=== PATIENT | female | born 1940 | race Caucasian/White ===

== ENCOUNTER 2017-07-11 18:23 | Inpatient (IN) | payer MEDICARE, OTHER ==
[2017-07-11] VITALS (20 sets, daily range): BP systolic 70–108; BP diastolic 35–53; PULSE 40–57; RESP 16–20; TEMP 91–92.1; O2SAT 85–100
[~2017-07-11] VITALS: Ht 160 cm; Wt 157.6 kg
[2017-07-11] MEDS ORDERED: ETOMIDATE 20 MG/10 ML VIAL ONE (18:32)
[2017-07-11] MEDS ORDERED: VECURONIUM BROMIDE 10 MG VIAL ONE (18:32)
[2017-07-11] MEDS ORDERED: AZITHROMYCIN INJ 500 MG in SODIUM CHLOR 0.9% 250 ML INJ 250 ML IV STA (18:44)
[2017-07-11] MEDS ORDERED: PIPERACIL-TAZO 4.5 GM PREMIX 100 ML IV STA (18:44)
[2017-07-11] MEDS ORDERED: VECURONIUM BROMIDE 10 MG VIAL IV PUSH ONE (18:45)
[2017-07-11] MEDS ORDERED: SODIUM CHLOR 0.9% 1000 ML INJ 1,000 ML IV ONE ×5 (18:45→19:15)
[2017-07-11] MEDS ORDERED: ETOMIDATE 20 MG/10 ML VIAL IVP ONE (18:45)
[2017-07-11] MEDS ORDERED: SODIUM CHLORIDE 0.9% FLUSH 10 ML FLUSH IVF PRN (18:45)
--- NOTE | 2017-07-11 19:04 | RADRPT ---
EXAM DATE/TIME: 07/11/2017 18:48 [facility] COMPARISON: No previous studies available for comparison. INDICATIONS : Post intubation. Respiratory distress. MEDICAL HISTORY : Unobtainable. SURGICAL HISTORY : Unobtainable. ENCOUNTER: Initial ACUITY: 1 day PAIN SCORE: Non-responsive. LOCATION: Bilateral chest FINDINGS: The endotracheal tube appears to be located approximately 1 cm above the melo. This could be pulled back 2 cm for more optimal positioning. The nasogastric tube is noted below the diaphragm. Bilateral perihilar and bibasilar infiltrates are noted. Degenerative changes and scoliosis of the thoracolumb ar spine are noted. Hardware is noted within the thoracic spine. CONCLUSION: 1. Endotracheal tube appears to be located approximately 1 cm above the melo. This could be pulled back 2 cm for more optimal positioning. 2. Perihilar and bibasilar infiltrates. Jaden Clark MD on July 11, 2017 at 19:00 Board Certified Radiologist. This report was verified electronically.
--- NOTE | 2017-07-11 19:09 | PD ---
HPI Chief Complaint: Respiratory Distress Time Seen by Provider: 18:27 Travel History International Travel<30 days: No Contact w/Intl Traveler<30days: No Traveled to known affect area: No History of Present Illness HPI 77-year-old female patient sent in from detention, apparently has been having increased lethargy for the last 2 days, hypoglycemia early in the day with sugars of 44, given glucagon, chest x-ray showing a pneumonia according to facility staff, EMS noted the patient was fairly disoriented, GCS 6, and started bag valve masking her because of respiratory distress and hypoxia with sats in the 87% range despite oxygenation. Patient was brought in bag-valve- mask in progress. She is fairly lethargic. She is intubated by me in the ER for airway protection. Modifying Factors: None Associated Signs & Symptoms: Pneumonia, sepsis, hypoxia, hypoglycemia, lethargy Risk Factors: Elderly detention patient PFSH Past Medical History ?: Not Social History Tobacco Use: No Allergies-Medications (Allergen,Severity, Reaction): Coded Allergies: FRANCK Inhibitors (Verified Allergy, Unknown, 07/11/17) Zpqnjhf-Tsc-Yic Reductase Inhibitor (Verified Allergy, Unknown, 07/11/17) Review of Systems ROS Limitations: Altered Mental Status Physical Exam Narrative GENERAL: Well-developed obese white female patient currently in moderate respiratory distress, obtunded, decreased gag reflex. SKIN: Focused skin assessment warm/dry. HEAD: Atraumatic. Normocephalic. EYES: Pupils equal and round. No scleral icterus. No injection or drainage. ENT: No nasal bleeding or discharge. Mucous membranes pale. NECK: Trachea midline. No JVD. CARDIOVASCULAR: Regular rate and rhythm. No murmur appreciated. RESPIRATORY: Moderate accessory muscle use. Decreased throughout with occasional wheezes. Breath sounds equal bilaterally. GASTROINTESTINAL: Abdomen obese, soft, non-tender, nondistended. Hepatic and splenic margins not palpable. MUSCULOSKELETAL: No obvious deformities. No clubbing. No cyanosis. No edema. NEUROLOGICAL: Lethargic, not following commands. PSYCHIATRIC: Lethargic. Data Data Last Documented VS Vital Signs Date Time Temp Pulse Resp B/P (MAP) Pulse Ox O2 Delivery O2 Flow Rate FiO2 07/11/17 18:59 16 98 Ventilator 07/11/17 18:57 73/38 (50) 07/11/17 18:51 100 07/11/17 18:28 57 Orders Orders Sepsis Workup Initiated (07/11/17 ) Electrocardiogram (07/11/17 18:27) Complete Blood Count With Diff (07/11/17 18:27) Comprehensive Metabolic Panel (07/11/17 18:27) Prothrombin Time / Inr (Pt) (07/11/17 18:27) Act Partial Throm Time (Ptt) (07/11/17 18:27) Lactic Acid Sepsis Protocol (07/11/17 18:27) Magnesium (Mg) (07/11/17 18:27) Lipase (07/11/17 18:27) Ckmb (Isoenzyme) Profile (07/11/17 18:) Troponin I (07/11/17 18:) Urinalysis - C+S If Indicated (07/11/17 18:27) Blood Culture (07/11/17 18:27) Chest, Single Ap (07/11/17 18:27) Blood Glucose (07/11/17 18:27) Ecg Monitoring (07/11/17 18:) Iv Access Insert/Monitor (07/11/17 18:27) Oximetry (07/11/17 18:27) Oxygen Administration (07/11/17 18:27) Ct Brain W/O Iv Contrast(Rout) (07/11/17 18:27) B-Type Natriuretic Peptide (07/11/17 18:27) Etomidate Inj (Amidate Inj) (07/11/17 18:32) Vecuronium 10 Mg Inj (Norcuron 10 Mg Inj (07/11/17 18:32) Sodium Chlor 0.9% 1000 Ml Inj (Ns 1000 M (07/11/17 18:45) Piperacil-Tazo 4.5 Gm Premix (Zosyn 4.5 (07/11/17 18:44) Azithromycin Inj (Zithromax Inj) (07/11/17 18:44) Etomidate Inj (Amidate Inj) (07/11/17 18:45) Vecuronium 10 Mg Inj (Norcuron 10 Mg Inj (07/11/17 18:45) Sodium Chloride 0.9% Flush (Ns Flush) (07/11/17 18:45) Sodium Chlor 0.9% 1000 Ml Inj (Ns 1000 M (07/11/17 19:00) Admit Order (Ed Use Only) (07/11/17 18:58) Labs Laboratory Tests Test 07/11/17 18:45 White Blood Count 15.9 TH/MM3 Red Blood Count 3.10 MIL/MM3 Hemoglobin 9.6 GM/DL Hematocrit 29.4 % Mean Corpuscular Volume 94.9 FL Mean Corpuscular Hemoglobin 30.9 PG Mean Corpuscular Hemoglobin Concent 32.6 % Red Cell Distribution Width 20.6 % Platelet Count 172 TH/MM3 Mean Platelet Volume 7.9 FL Neutrophils (%) (Auto) 93.0 % Lymphocytes (%) (Auto) 3.0 % Monocytes (%) (Auto) 3.7 % Eosinophils (%) (Auto) 0.2 % Basophils (%) (Auto) 0.1 % Neutrophils # (Auto) 14.8 TH/MM3 Lymphocytes # (Auto) 0.5 TH/MM3 Monocytes # (Auto) 0.6 TH/MM3 Eosinophils # (Auto) 0.0 TH/MM3 Basophils # (Auto) 0.0 TH/MM3 CBC Comment AUTO DIFF Prothrombin Time 9.8 SEC Prothromb Time International Ratio 1.0 RATIO Activated Partial Thromboplast Time 30.3 SEC Blood Urea Nitrogen 85 MG/DL Creatinine 1.80 MG/DL Random Glucose 92 MG/DL Albumin 2.7 GM/DL Calcium Level 8.4 MG/DL Magnesium Level 2.6 MG/DL Sodium Level 128 MEQ/L Potassium Level 6.4 MEQ/L Chloride Level 93 MEQ/L Carbon Dioxide Level 29.7 MEQ/L Anion Gap 5 MEQ/L Estimat Glomerular Filtration Rate 27 ML/MIN Lipase 175 U/L MDM Medical Decision Making Medical Screen Exam Complete: Yes Emergency Medical Condition: Yes Medical Record Reviewed: Yes Interpretation(s) Laboratory Tests Test 07/11/17 18:45 White Blood Count 15.9 TH/MM3 (4.0-11.0) Red Blood Count 3.10 MIL/MM3 (4.00-5.30) Hemoglobin 9.6 GM/DL (11.6-15.3) Hematocrit 29.4 % (35.0-46.0) Red Cell Distribution Width 20.6 % (11.6-17.2) Neutrophils (%) (Auto) 93.0 % (16.0-70.0) Lymphocytes (%) (Auto) 3.0 % (9.0-44.0) Neutrophils # (Auto) 14.8 TH/MM3 (1.8-7.7) Lymphocytes # (Auto) 0.5 TH/MM3 (1.0-4.8) Activated Partial Thromboplast Time 30.3 SEC (24.3-30.1) Blood Urea Nitrogen 85 MG/DL (7-18) Creatinine 1.80 MG/DL (0.50-1.00) Albumin 2.7 GM/DL (3.4-5.0) Calcium Level 8.4 MG/DL (8.5-10.1) Magnesium Level 2.6 MG/DL (1.5-2.5) Alkaline Phosphatase 164 U/L (45-117) Aspartate Amino Transf (AST/SGOT) 38 U/L (15-37) Sodium Level 128 MEQ/L (136-145) Potassium Level 6.4 MEQ/L (3.5-5.1) Chloride Level 93 MEQ/L (98-107) Estimat Glomerular Filtration Rate 27 ML/MIN (>89) Troponin I LESS THAN 0.02 NG/ML Last 24 hours Impressions Chest X-Ray 07/11/17 9737 Signed Impressions: Service Date/Time: Tuesday, July 11, 2017 18:48 - CONCLUSION: 1. Endotracheal tube appears to be located approximately 1 cm above the melo. This could be pulled back 2 cm for more optimal positioning. 2. Perihilar and bibasilar infiltrates. aJden Clark MD Differential Diagnosis Sepsis versus pneumonia versus CHF exacerbation versus metabolic issues Narrative Course Patient is intubated by me for airway protection. She tolerated procedure well. IV fluids initiated in the ER for hypotension. IV antibiotics initiated for concern of pneumonia. Lab work ordered. Case was then discussed with Dr. De Paz for admission to ICU for further treatment. Aggregate critical care time was 20 minutes. Time to perform other separately billable procedures was not included in the critical care time. My time did not include minutes spent treating any other patients simultaneously or on activities that did not directly contribute to the patient's treatment. The services I provided to this patient were to treat and/or prevent clinically significant deterioration that could result in: Worsening respiratory distress, respiratory failure, septic shock, cardiac arrest, I provided critical care services requiring my management, as noted below: Chart data review, documentation time, medication orders and management, vital sign assessments/reviewing monitor data, ordering and reviewing lab tests, ordering and interpreting/reviewing x-rays and diagnostic studies, care of the patient and discussion of the patient with the admitting physicians. Procedures Procedure Narrative The following procedure was performed for airway protection: INTUBATION: The patient was put in optimal position for the procedure. Rapid sequence intubation was initiated by me using 20 milligrams of etomidate IV and 10 milligrams of vecuronium IV. The patient was intubated with a 8.0 cuffed endotracheal tube. Tube placement was confirmed by visualization of the tube and balloon passing through the cords, capnometry and subsequent chest x-ray. Breath sounds were equal and well aerated bilaterally postintubation. No breath sounds over stomach. Patient tolerated procedure well. Diagnosis Primary Impression: Respiratory distress Additional Impressions: Pneumonia Endotracheally intubated Admitting Information Admitting Physician Requests: Admit Isaac Laguerre MD Jul 11, 2017 19:09
[2017-07-11 19:14] LABS: AUTOMATED NEUTROPHIL # 14.8 TH/MM3 (1.8-7.7); BASOPHIL % 0.1 % (0.0-2.0); EOSINOPHIL % 0.2 % (0.0-4.0); HEMATOCRIT 29.4 % (35.0-46.0); HEMOGLOBIN 9.6 GM/DL (11.6-15.3); LYMPHOCYTE # 0.5 TH/MM3 (1.0-4.8); MEAN CELL VOLUME 94.9 FL (80.0-100.0); MEAN CORPUSCULAR HEMOGLOBIN 30.9 PG (27.0-34.0); MEAN CORPUSCULAR HGB CONC 32.6 % (32.0-36.0); MEAN PLATELET VOLUME 7.9 FL (7.0-11.0); MONO % 3.7 % (0.0-8.0); MONOCYTE # 0.6 TH/MM3 (0-0.9); PLATELET COUNT 172 TH/MM3 (150-450); RED CELL DISTRIBUTION WIDTH 20.6 % (11.6-17.2); WHITE BLOOD COUNT 15.9 TH/MM3 (4.0-11.0)
[2017-07-11] MEDS ORDERED: ONDANSETRON HCL 4 MG/2 ML VIAL IV PUSH PRN (19:15)
[2017-07-11] MEDS ORDERED: LACTULOSE SYRUP 20 GM/30 ML CUP PO PRN (19:15)
[2017-07-11] MEDS ORDERED: MISCELLANEOUS NURSING INFORMATION XX SCH (19:15)
[2017-07-11] MEDS ORDERED: SENNOSIDES 8.6 MG TAB PO PRN (19:15)
[2017-07-11] MEDS ORDERED: VANCOMYCIN INJ 1,000 MG in SODIUM CHLOR 0.9% 250 ML INJ 250 ML IV ONE (19:15)
[2017-07-11] MEDS ORDERED: MAGNESIUM HYDROXIDE SUSP 30 ML CUP PO PRN (19:15)
[2017-07-11] MEDS ORDERED: Vancomycin Consult Pharmacy 1 EA OTHER SCH (19:15)
[2017-07-11] MEDS ORDERED: BISACODYL 10 MG SUPP RECTAL PRN (19:15)
[2017-07-11] MEDS ORDERED: CHLORHEXIDINE GLUCONATE 2 % 1 PACK (2 CLOTHS) TOP PRN (19:15)
[2017-07-11] MEDS ORDERED: RESP: ALBUTEROL 2.5 MG/IPRATROPIUM 0.5 MG NEB (PRN) INH (19:15)
[2017-07-11] MEDS ORDERED: LORazepam 2 MG/ML VIAL IV PUSH PRN (19:15)
[2017-07-11] MEDS ORDERED: SODIUM CHLOR 0.9% 1000 ML INJ 900 ML IV ONE (19:15)
[2017-07-11] MEDS ORDERED: ACETAMINOPHEN 325 MG TAB PO PRN (19:15)
[2017-07-11 19:22] LABS: PROTHROMBIN TIME - PATIENT 9.8 SEC (9.8-11.6)
--- NOTE | 2017-07-11 19:26 | HHI.HP ---
HPI Service Critical Care Medicine Primary Care Physician [facility] Clinical Diagnostics Admission Diagnosis pneumonia/severe sepsis/respiratory failure/intubated Diagnosis: Travel History International Travel<30 Days: No Contact w/Intl Traveler <30 Da: No Traveled to Known Affected Are: No History of Present Illness 77-year-old morbidly obese female patient sent in from assisted, due to increased lethargy for the last 2 days, hypoglycemia early in the day with sugars of 44, given glucagon, chest x-ray showing a pneumonia according to facility staff, EMS noted the patient was fairly disoriented, GCS 6, and started bag valve masking her because of respiratory distress and hypoxia with sats in the 87% range despite oxygenation. Patient was brought in bag-valve- mask in progress and was immediately intubated in the emergency department by ED attending. Review of Systems ROS Unobtainable patient is sedated and intubated Past Family Social History Allergies: Coded Allergies: FRANCK Inhibitors (Verified Allergy, Unknown, 07/11/17) [id number]-Rpr-Dkw Reductase Inhibitor (Verified Allergy, Unknown, 07/11/17) Past Medical History Per review of medications from the assisted patient has diabetes mellitus, hypertension, arrhythmia's, hypothyroidism, seizure disorder Past Surgical History Unable to obtain patient is sedated and intubated Reported Medications Reported Meds & Active Scripts Active Reported Zinc Sulfate 220 Mg (50 Mg Zinc) Cap 220 Mg PO DAILY Ascorbic Acid 500 Mg Tab 500 Mg PO BID Tramadol (Tramadol HCl) 50 Mg Tab 50 Mg PO Q6H PRN Spironolactone 25 Mg Tab 12.5 Mg PO HS Santyl Topical (Collagenase) 250 Unit/Gm Oint 1 Applic TOPICAL DAILY Probiotic (Lactobacillus Acidophilus) 10 Billion Cell Cap 1 Cap PO TIDAC Prednisone 10 Mg Tab 10 Mg PO DAILY Multiple Vitamin 1 Tab 1 Tab PO DAILY Modafinil 200 Mg Tab 200 Mg PO DAILY Metoprolol Tartrate 25 Mg Tab 25 Mg PO BID Levothyroxine (Levothyroxine Sodium) 25 Mcg Tab 25 Mcg PO DAILY Levetiracetam 500 Mg Tab 500 Mg PO BID Combivent Respimat Inh (Ipratropium-Albuterol Inh) 20-100 Longterm/Act Aero 1 Puff INH QID Levemir Inj (Insulin Detemir) 1,000 unit/ 10 ML Vial 25 Units SQ BID Do not mix with any other Insulin. Humalog Inj (Insulin Human Lispro) 1,000 Unit/10 Ml Vial 3-12 Units SQ ACHS Max dose at bedtime:( )units; sugars < 70,(0)units; sugars 150-199,(2)units; sugars 200-249,(4)units; sugars 250-299,(7)units; sugars 300-349,(10)units; sugars more than 349,(12)units. Guaifenesin DM Liq (Guaifenesin-Dextromethorphan Liq) 10-100 Mg/5 Ml Liq 7.5 Ml PO Q6HR PRN Glucagon Emergency Inj Kit (Glucagon (Rdna) Inj Kit) 1 Mg Kit 1 Mg IM ONCE PRN Gabapentin 300 Mg Cap 300 Mg PO TID Furosemide 40 Mg Tab 40 Mg PO DAILY Folic Acid 0.4 Mg Tab 1 Mg PO DAILY Ferrous Sulfate 325 Mg (65 Mg Iron) Tablet 325 Mg PO DAILY Famotidine 20 Mg Tab 20 Mg PO BID Dulcolax Supp (Bisacodyl) 10 Mg Supp 10 Mg RECTAL DAILY PRN Docusate Sodium 100 Mg Cap 100 Mg PO BID PRN Citroma Liq (Magnesium Citrate) 300 Ml Liq 296 Ml PO DIRECTED Buspirone (Buspirone HCl) 10 Mg Tab 10 Mg PO BID Amitriptyline (Amitriptyline HCl) 10 Mg Tab 10 Mg PO HS Amiodarone (Amiodarone HCl) 200 Mg Tab 200 Mg PO BID Alprazolam 0.5 Mg Tab 0.5 Mg PO Q6H PRN Tylenol (Acetaminophen) 325 Mg Tab 650 Mg PO Q4H PRN Tylenol (Acetaminophen) 325 Mg Tab 650 Mg PO Q4H PRN Active Ordered Medications Current Medications Medications (Trade) Dose Ordered Sig/Kerri Route PRN Reason Start Time Stop Time Status Last Admin Dose Admin Sodium Chloride 1,000 ml @ 184 mls/hr Q5H27M IV 07/11/17 19:15 Sodium Chloride (NS Flush) 2 ml UNSCH PRN IV FLUSH FLUSH AFTER USING IV ACCESS 07/11/17 19:15 Sodium Chloride (NS Flush) 2 ml BID IV FLUSH 07/11/17 21:00 Acetaminophen (Tylenol) 650 mg Q6H PRN PO PAIN 1-10 AND/OR FEVER >101F 07/11/17 19:15 Famotidine (Pepcid Inj) 20 mg Q12HR IV PUSH 07/11/17 21:00 Lorazepam (Ativan Inj) 1 mg Q1H PRN IV PUSH Agitation/Sedation 07/11/17 19:15 Artificial Tears (Tears Naturale Opth Soln) 1 drop TID EACH EYE 07/12/17 09:00 Ondansetron HCl (Zofran Inj) 4 mg Q6H PRN IV PUSH NAUSEA OR VOMITING 07/11/17 19:15 Albuterol/ Ipratropium (Duoneb Neb) 1 ampule Q6HR NEB INH 07/11/17 22:00 07/11/17 19:53 Albuterol/ Ipratropium (Duoneb Neb) 1 ampule Q2HR NEB PRN INH WHEEZING 07/11/17 19:15 Heparin Sodium (Porcine) (Heparin Inj) 5,000 units Q8H SQ 07/11/17 21:00 Miscellaneous Information 1 Q361D XX 07/11/17 19:15 Chlorhexidine Gluconate (Chlorhexidine 2% Cloth) 3 pack Taper DAILY@04 TOP 07/12/17 04:00 07/08/18 03:59 Chlorhexidine Gluconate (Chlorhexidine 2% Cloth) 3 pack UNSCH PRN TOP HYGIENIC CARE 07/11/17 19:15 Senna/Docusate Sodium (Mare-Colace) 1 tab BID PO 07/11/17 21:00 Magnesium Hydroxide (Milk Of Magnesia Liq) 30 ml Q12H PRN PO Mild constipation 07/11/17 19:15 Sennosides (Senokot) 17.2 mg Q12H PRN PO Moderate constipation 07/11/17 19:15 Bisacodyl (Dulcolax Supp) 10 mg DAILY PRN RECTAL SEVERE CONSITIPATION 07/11/17 19:15 Lactulose (Lactulose Liq) 30 ml DAILY PRN PO SEVERE CONSITIPATION 07/11/17 19:15 Hydrocortisone Sodium Succinate (SoluCORTEF INJ) 50 mg Q6H IV PUSH 07/11/17 21:00 Azithromycin 500 mg/Sodium Chloride 250 ml @ 250 mls/hr Q24H IV 07/12/17 20:00 Pharmacy Profile Note 0 ml @ 0 mls/hr UNSCH OTHER 07/11/17 19:15 Piperacillin Sod/ Tazobactam Sod 100 ml @ 200 mls/hr Q6H IV 07/12/17 02:00 Sodium Chloride 1,000 ml @ 1,000 mls/hr Q1H ONCE IV 07/11/17 19:15 07/11/17 20:14 Sodium Chloride 1,000 ml @ 1,000 mls/hr Q1H ONCE IV 07/11/17 19:15 07/11/17 20:14 Sodium Chloride 1,000 ml @ 1,000 mls/hr Q1H ONCE IV 07/11/17 19:15 07/11/17 20:14 Sodium Chloride 900 ml @ 1,000 mls/hr Q54M ONCE IV 07/11/17 19:15 07/11/17 20:08 Fentanyl Citrate 250 ml @ 5 mls/hr TITRATE PRN IV SEDATION 07/11/17 19:30 Midazolam HCl 100 ml @ 2 mls/hr TITRATE PRN IV SEDATION 07/11/17 19:30 Vancomycin HCl 2500 mg/Sodium Chloride 525 ml @ 250 mls/hr ONCE ONCE IV 07/11/17 21:00 07/11/17 23:05 Family History Unable to obtain Social History Unable to obtain Physical Exam Vital Signs Vital Signs Date Time Temp Pulse Resp B/P (MAP) Pulse Ox O2 Delivery O2 Flow Rate FiO2 07/11/17 19:24 91.6 40 16 75/37 (50) 92 Ventilator 100 07/11/17 19:05 75/38 (50) 07/11/17 18:59 16 98 Ventilator 07/11/17 18:57 73/38 (50) 07/11/17 18:55 70/35 (47) 07/11/17 18:51 100 Non-Rebreather 100 07/11/17 18:46 16 98 Ventilator 07/11/17 18:46 97 Ventilator 07/11/17 18:45 97 100 07/11/17 18:42 86/42 (57) 07/11/17 18:40 85 21 07/11/17 18:35 97/46 (63) 07/11/17 18:28 57 20 89/51 (64) 98 Physical Exam GENERAL: Morbidly obese elderly female sedated and intubated. SKIN: Warm and dry. HEAD: Normocephalic. EYES: No scleral icterus. No injection or drainage. NECK: Supple, trachea midline. No JVD or lymphadenopathy. CARDIOVASCULAR: Regular rate and rhythm without murmurs, gallops, or rubs. RESPIRATORY: Breath sounds equal bilaterally. No accessory muscle use. GASTROINTESTINAL: Abdomen soft, non-tender, nondistended. MUSCULOSKELETAL: No cyanosis, or edema. BACK: Nontender without obvious deformity. NEURO EXAM: Mental Status: The patient is sedated and intubated. Cranial Nerves: Pupils are round, reactive to light. Laboratory Laboratory Tests Test 07/11/17 18:45 White Blood Count 15.9 Red Blood Count 3.10 Hemoglobin 9.6 Hematocrit 29.4 Mean Corpuscular Volume 94.9 Mean Corpuscular Hemoglobin 30.9 Mean Corpuscular Hemoglobin Concent 32.6 Red Cell Distribution Width 20.6 Platelet Count 172 Mean Platelet Volume 7.9 Neutrophils (%) (Auto) 93.0 Lymphocytes (%) (Auto) 3.0 Monocytes (%) (Auto) 3.7 Eosinophils (%) (Auto) 0.2 Basophils (%) (Auto) 0.1 Neutrophils # (Auto) 14.8 Lymphocytes # (Auto) 0.5 Monocytes # (Auto) 0.6 Eosinophils # (Auto) 0.0 Basophils # (Auto) 0.0 CBC Comment AUTO DIFF Prothrombin Time 9.8 Prothromb Time International Ratio 1.0 Activated Partial Thromboplast Time 30.3 Result Diagram: 07/11/17 1845 Imaging Last 24 hours Impressions Chest X-Ray 07/11/177 Signed Impressions: Service Date/Time: Tuesday, July 11, 2017 18:48 - CONCLUSION: 1. Endotracheal tube appears to be located approximately 1 cm above the melo. This could be pulled back 2 cm for more optimal positioning. 2. Perihilar and bibasilar infiltrates. Jaden Clark MD Caprini VTE Risk Assessment Caprini VTE Risk Assessment: Mod/High Risk (score >= 2) Caprini Risk Assessment Model Point Value = 1 Point Value = 2 Point Value = 3 Point Value = 5 Age 41-60 Minor surgery BMI > 25 kg/m2 Swollen legs Varicose veins or History of unexplained or recurrent spontaneous Oral contraceptives or hormone replacement Sepsis (< 1 month) Serious lung disease, including pneumonia (< 1 month) Abnormal pulmonary function Acute myocardial infarction Congestive heart failure (< 1 month) History of inflammatory bowel disease Medical patient at bed rest Age 61-74 Arthroscopic surgery Major open surgery (> 45 min) Laparoscopic surgery (> 45 min) Malignancy Confined to bed (> 72 hours) Immobilizing plaster cast Central venous access Age >= 75 History of VTE Family history of VTE Factor V Leiden Prothrombin [id number] Lupus anticoagulant Anticardiolipin antibodies Elevated serum homocysteine Heparin-induced thrombocytopenia Other congenital or acquired thrombophilia Stroke (< 1 month) Elective arthroplasty Hip, pelvis, or leg fracture Acute spinal cord injury (< 1 month) Prophylaxis Regimen Total Risk Factor Score Risk Level Prophylaxis Regimen 0-1 Low Early ambulation 2 Moderate Order ONE of the following: *Sequential Compression Device (SCD) *Heparin 5000 units SQ BID 3-4 Higher Order ONE of the following medications: *Heparin 5000 units SQ TID *Enoxaparin/Lovenox 40 mg SQ daily (WT < 150 kg, CrCl > 30 mL/min) *Enoxaparin/Lovenox 30 mg SQ daily (WT < 150 kg, CrCl > 10-29 mL/min) *Enoxaparin/Lovenox 30 mg SQ BID (WT < 150 kg, CrCl > 30 mL/min) AND/OR *Sequential Compression Device (SCD) 5 or more Highest Order ONE of the following medications: *Heparin 5000 units SQ TID (Preferred with Epidurals) *Enoxaparin/Lovenox 40 mg SQ daily (WT < 150 kg, CrCl > 30 mL/min) *Enoxaparin/Lovenox 30 mg SQ daily (WT < 150 kg, CrCl > 10-29 mL/min) *Enoxaparin/Lovenox 30 mg SQ BID (WT < 150 kg, CrCl > 30 mL/min) AND *Sequential Compression Device (SCD) Assessment and Plan Assessment and Plan Respiratory failure - Intubated for an airway protection - Questionable hospital-acquired pneumonia - Broad-spectrum antibiotics - Cultures and urine antigens - De-escalate per sensitivity and results - IV steroids - DuoNeb scheduled and when necessary Altered mental status - CT head pending - SIRS/sepsis - Broad-spectrum antibiotics and follow-up cultures Hypotension - Septic shock - Aggressive IV fluid rehydration - Levophed when necessary keep MEP above 65 - Broad-spectrum antibiotics Diabetes mellitus - Insulin sliding scale - Glucerna - Resume long-acting insulins went tube feeds at goal Hypothyroidism - Levothyroxine Arrhythmias - Continue amiodarone History of hypertension - Hold all antihypertensive meds due to hypotension Seizure disorder - Keppra Neuropathy - Gabapentin - Amitriptyline DVT GI prophylaxis - Teds SCDs - Subcutaneous heparin - IV Pepcid Critical Care: The total critical care time was 35 minutes. Time to perform other separately billable procedures was not included in the critical care time. Colton De Paz MD Jul 11, 2017 7:26 pm
[2017-07-11 19:35] LABS: ALBUMIN 2.7 GM/DL (3.4-5.0); BICARBONATE 29.7 MEQ/L (21.0-32.0); BLOOD UREA NITROGEN 85 MG/DL (7-18); CALCIUM 8.4 MG/DL (8.5-10.1); CHLORIDE 93 MEQ/L (98-107); GLOMERULAR FILTRATION RATE 27 ML/MIN (>89); GLUCOSE,RANDOM 92 MG/DL (74-106); LIPASE 175 U/L (73-393); MAGNESIUM 2.6 MG/DL (1.5-2.5); SODIUM (NA) 128 MEQ/L (136-145)
[2017-07-11 19:39] LABS: ALKALINE PHOSPHATASE 164 U/L (45-117); ALT (GPT) 52 U/L (10-53); AST (GOT) 38 U/L (15-37); TOTAL BILIRUBIN ADULT 0.3 MG/DL (0.2-1.0); TOTAL PROTEIN 7.1 GM/DL (6.4-8.2); TROPONIN I LESS THAN 0.02 NG/ML (0.02-0.05)
[2017-07-11] MEDS: RESP: ALBUTEROL 2.5 MG/IPRATROPIUM 0.5 MG NEB (SCH) INH (19:53)
[2017-07-11] MEDS ORDERED: FERR325T18 PO (20:03)
[2017-07-11] MEDS ORDERED: METO25TA3 PO (20:03)
[2017-07-11] MEDS ORDERED: MODA200T12 PO (20:03)
[2017-07-11] MEDS ORDERED: BUSP10TA PO (20:03)
[2017-07-11] MEDS ORDERED: LEVO25TA4 PO (20:03)
[2017-07-11] MEDS ORDERED: AMIO200T PO (20:03)
[2017-07-11] MEDS ORDERED: HUMALOG SQ (20:03)
[2017-07-11] MEDS ORDERED: SPIR25TA PO (20:03)
[2017-07-11] MEDS ORDERED: IPRAAER INH (20:03)
[2017-07-11] MEDS ORDERED: CITRSOL4 PO (20:03)
[2017-07-11] MEDS ORDERED: GUAISYP7 PO (20:03)
[2017-07-11] MEDS ORDERED: TYLE325T PO (20:03)
[2017-07-11] MEDS ORDERED: LEVE500T8 PO (20:03)
[2017-07-11] MEDS ORDERED: AMIT10TA6 PO (20:03)
[2017-07-11] MEDS ORDERED: ZINC220C3 PO (20:03)
[2017-07-11] MEDS ORDERED: GLUC1KIT IM (20:03)
[2017-07-11] MEDS ORDERED: GABA300C5 PO (20:03)
[2017-07-11] MEDS ORDERED: COLL30T TOPICAL (20:03)
[2017-07-11] MEDS ORDERED: ALPR0.5T3 PO (20:03)
[2017-07-11] MEDS ORDERED: MULTTAB67 PO (20:03)
[2017-07-11] MEDS ORDERED: PRED10 PO (20:03)
[2017-07-11] MEDS ORDERED: LEVEMIR SQ (20:03)
[2017-07-11] MEDS ORDERED: TRAM50TA PO (20:03)
[2017-07-11] MEDS ORDERED: FURO40TA PO (20:03)
[2017-07-11] MEDS ORDERED: FOLI400T PO (20:03)
[2017-07-11] MEDS ORDERED: FAMO20TA2 PO (20:03)
[2017-07-11] MEDS ORDERED: LACTCAP8 PO (20:03)
[2017-07-11] MEDS ORDERED: DULC10SU3 RECTAL (20:03)
[2017-07-11] MEDS ORDERED: DOCU100C15 PO (20:03)
[2017-07-11] MEDS ORDERED: ASCO500T PO (20:03)
[2017-07-11 20:21] LABS: BACTERIA, URINE MANY /hpf; BILIRUBIN, URINE NEG (NEG); BLOOD, URINE NEG (NEG); GLUCOSE,URINE NEG (NEG); HYALINE CAST, URINE 35 /lpf (RARE); KETONE, URINE NEG (NEG); MUCUS URINE FEW /lpf (OCC); NITRITE,URINE NEG (NEG); SQUAMOUS EPITHELIAL CELL URINE 3 /hpf (0-5); URINE COLOR YELLOW (YELLW/STRAW); URINE LEUKOCYTE ESTERASE MOD (NEG)
[2017-07-11] MEDS ORDERED: DEXTROSE 50% IN WATER 50 ML VIAL(D50) ONE (20:47)
[2017-07-11] MEDS: DOCUSATE SODIUM 50 MG/SENNA 8.6 MG TAB PO SCH (21:00)
[2017-07-11] MEDS: AMIODARONE 200 MG TAB PO SCH (21:00)
[2017-07-11] MEDS: ASCORBIC ACID 500 MG TAB PO SCH (21:00)
[2017-07-11] MEDS: AMITRIPTYLINE HCL 10 MG TAB PO SCH (21:00)
[2017-07-11] MEDS: levETIRAcetam 500 MG TAB PO SCH (21:00)
[2017-07-11] MEDS: busPIRone HCL 10 MG TAB PO SCH (21:00)
[2017-07-11] MEDS ORDERED: VANCOMYCIN INJ 2,500 MG in SODIUM CHLORID 0.9% 500 ML INJ 500 ML IV ONE (21:00)
[2017-07-11] MEDS: FAMOTIDINE 20 MG/2 ML VIAL IV PUSH SCH (21:18)
[2017-07-11] MEDS: HYDROCORTISONE SOD SUCCINATE 100 MG VIAL IV PUSH SCH (21:18)
[2017-07-11] MEDS: SODIUM CHLORIDE 0.9% FLUSH 10 ML FLUSH IV FLUSH SCH (21:19)
[2017-07-11] MEDS: HEPARIN SODIUM - SQ 10,000 UNITS/ML VIAL SQ SCH (21:19)
[2017-07-11] MEDS ORDERED: fentaNYL DRIP 250 ML ONE (21:20)
[2017-07-11] MEDS: fentaNYL DRIP 250 ML IV PRN (21:23)
--- NOTE | 2017-07-11 21:45 | RADRPT ---
EXAM DATE/TIME: 07/11/2017 21:23 [facility] COMPARISON: No previous studies available for comparison. INDICATIONS : Altered mental status. RADIATION DOSE: 56.35 CTDIvol (mGy) MEDICAL HISTORY : Non-responsive. SURGICAL HISTORY : Non-responsive. ENCOUNTER: Initial ACUITY: 1 day PAIN SCALE: Non-responsive LOCATION: cranial TECHNIQUE: Multiple contiguous axial images were obtained of the head. Using automated exposure control and adj ustment of the mA and/or kV according to patient size, radiation dose was kept as low as reasonably a chievable to obtain optimal diagnostic quality images. DICOM format image data is available electro nically for review and comparison. FINDINGS: CEREBRUM: The ventricles are normal for age. No evidence of midline shift, mass lesion, hemorrhage or acute in farction. No extra-axial fluid collections are seen. POSTERIOR FOSSA: The cerebellum and brainstem are intact. The 4th ventricle is midline. The cerebellopontine angle i s unremarkable. EXTRACRANIAL: The visualized portion of the orbits is intact. Small fluid level within left maxillary sinus. SKULL: The calvaria is intact. No evidence of skull fracture. CONCLUSION: No acute intracranial abnormality Jaden Clark MD on July 11, 2017 at 21:42 Board Certified Radiologist. This report was verified electronically.
[2017-07-11] MEDS ORDERED: DEXTROSE 50% IN WATER 50 ML VIAL(D50) IV PUSH PRN (22:30)
[2017-07-11] MEDS ORDERED: GLUCAGON 1 MG/ML VIAL OTHER PRN (22:30)
[2017-07-11] MEDS: CHLORHEXIDINE GLUCONATE 2 % 1 PACK (2 CLOTHS) TOP SCH (23:26)
[2017-07-11] MEDS: SODIUM CHLOR 0.9% 1000 ML INJ 1,000 ML IV SCH ×2 (23:52→23:53)
[2017-07-12] VITALS (18 sets, daily range): BP systolic 100–117; BP diastolic 46–58; PULSE 47–65; RESP 16–34; TEMP 98.6–99.9; O2SAT 98–100
[2017-07-12 01:29] LABS: AUTOMATED NEUTROPHIL # 8.8 TH/MM3 (1.8-7.7); BASOPHIL % 0.1 % (0.0-2.0); HEMOGLOBIN 9.2 GM/DL (11.6-15.3); LYMPH % 2.6 % (9.0-44.0); LYMPHOCYTE # 0.3 TH/MM3 (1.0-4.8); MEAN CORPUSCULAR HEMOGLOBIN 30.1 PG (27.0-34.0); MEAN CORPUSCULAR HGB CONC 31.7 % (32.0-36.0); MEAN PLATELET VOLUME 7.8 FL (7.0-11.0); MONO % 7.9 % (0.0-8.0); MONOCYTE # 0.8 TH/MM3 (0-0.9); NEUT % 89.4 % (16.0-70.0); PLATELET COUNT 120 TH/MM3 (150-450); RED BLOOD COUNT 3.06 MIL/MM3 (4.00-5.30); RED CELL DISTRIBUTION WIDTH 20.4 % (11.6-17.2); WHITE BLOOD COUNT 9.8 TH/MM3 (4.0-11.0)
[2017-07-12] MEDS: HYDROCORTISONE SOD SUCCINATE 100 MG VIAL IV PUSH SCH ×4 (01:33→21:04)
[2017-07-12] MEDS: PIPERACIL-TAZO 4.5 GM PREMIX 100 ML IV SCH ×4 (01:33→21:03)
[2017-07-12 01:45] LABS: ALBUMIN 2.3 GM/DL (3.4-5.0); ALT (GPT) 61 U/L (10-53); AST (GOT) 47 U/L (15-37); BICARBONATE 25.1 MEQ/L (21.0-32.0); BLOOD UREA NITROGEN 83 MG/DL (7-18); CALCIUM 7.8 MG/DL (8.5-10.1); CHLORIDE 99 MEQ/L (98-107); GLOMERULAR FILTRATION RATE 31 ML/MIN (>89); GLUCOSE,RANDOM 58 MG/DL (74-106); MAGNESIUM 2.5 MG/DL (1.5-2.5); PHOSPHORUS 5.7 MG/DL (2.5-4.9); SODIUM (NA) 132 MEQ/L (136-145)
[2017-07-12 01:50] LABS: ALKALINE PHOSPHATASE 163 U/L (45-117); TOTAL BILIRUBIN ADULT 0.5 MG/DL (0.2-1.0); TOTAL PROTEIN 5.9 GM/DL (6.4-8.2); TROPONIN I LESS THAN 0.02 NG/ML (0.02-0.05)
[2017-07-12] MEDS: RESP: ALBUTEROL 2.5 MG/IPRATROPIUM 0.5 MG NEB (SCH) INH ×4 (04:50→21:56)
[2017-07-12] MEDS: HEPARIN SODIUM - SQ 10,000 UNITS/ML VIAL SQ SCH ×3 (05:10→21:03)
[2017-07-12] MEDS: LEVOTHYROXINE SODIUM 25 MCG TAB PO SCH (05:10)
[2017-07-12] MEDS: SODIUM CHLOR 0.9% 1000 ML INJ 1,000 ML IV SCH ×3 (05:11→16:50)
--- NOTE | 2017-07-12 05:46 | RADRPT ---
EXAM DATE/TIME: 07/12/2017 04:10 [facility] COMPARISON: CHEST SINGLE AP, July 11, 2017, 18:48. INDICATIONS : Shortness of breath, possible pulmonary disease. MEDICAL HISTORY : None. SURGICAL HISTORY : None. ENCOUNTER: Subsequent ACUITY: 2 days PAIN SCORE: Non-responsive. LOCATION: Bilateral chest FINDINGS: A single AP semierect view of the chest was obtained. The endotracheal tube remains in place with the tip approximately 1-2 cm above the melo. Nasogastric tube remains in place and is seen coursing th rough the esophagus and stomach. Hazy opacity remains in the perihilar regions of both lung bases wit h blunting of the costophrenic this. The heart size is moderately enlarged. A single view of the chest demonstrates the lungs to be symmetrically aerated without evidence of mas s, infiltrate or effusion. The cardiomediastinal contours are unremarkable. Osseous structures are intact. CONCLUSION: Moderate cardiomegaly with hazy bilateral alveolar opacities and small old apparent effusions. The fi ndings remain most characteristic of congestive heart failure. Phil South MD on July 12, 2017 at 5:43 Board Certified Radiologist. This report was verified electronically.
[2017-07-12] MEDS: INSULIN ASPART SUPPLEMENTAL SCALE SQ SCH ×4 (08:00→21:00)
[2017-07-12] MEDS: fentaNYL DRIP 250 ML IV PRN ×2 (08:06→16:51)
[2017-07-12] MEDS: FOLIC ACID 1 MG TAB PO SCH (08:14)
[2017-07-12] MEDS: FAMOTIDINE 20 MG/2 ML VIAL IV PUSH SCH ×2 (08:14→21:04)
[2017-07-12] MEDS: ASCORBIC ACID 500 MG TAB PO SCH ×2 (08:14→21:04)
[2017-07-12] MEDS: DOCUSATE SODIUM 50 MG/SENNA 8.6 MG TAB PO SCH ×2 (08:14→21:04)
[2017-07-12] MEDS: AMIODARONE 200 MG TAB PO SCH ×2 (08:14→21:04)
[2017-07-12] MEDS: MULTIVITAMIN TAB PO SCH (08:14)
[2017-07-12] MEDS: ZINC SULFATE 220 MG CAP PO SCH (08:14)
[2017-07-12] MEDS: GABAPENTIN 300 MG CAP PO SCH ×2 (08:14→12:43)
[2017-07-12] MEDS: busPIRone HCL 10 MG TAB PO SCH ×2 (08:15→21:00)
[2017-07-12] MEDS: SODIUM CHLORIDE 0.9% FLUSH 10 ML FLUSH IV FLUSH SCH ×2 (08:15→21:04)
[2017-07-12] MEDS ORDERED: FERROUS SULFATE 325 MG (65 MG ELEMENTAL IRON) TAB PO SCH (09:00)
[2017-07-12] MEDS: levETIRAcetam 500 MG TAB PO SCH (09:00)
[2017-07-12] MEDS: COLLAGENASE OINT 30 GM TUBE TOPICAL SCH (10:05)
[2017-07-12] MEDS: ARTIFICIAL TEARS OPTH SOLN 15 ML BTL EACH EYE SCH ×3 (10:05→17:18)
[2017-07-12] MEDS: FERROUS SULFATE 300 MG /5ML UDC PO SCH ×2 (13:06→21:03)
[2017-07-12] MEDS: levETIRAcetam 500 MG/5 ML UDC NG SCH ×2 (13:06→21:03)
--- NOTE | 2017-07-12 13:38 | PD.WCN.NOT ---
Wound Consult Description: Consult placed for WOUND MANAGEMENT of abdomen per MARKO/Ion Communicated with: ABHINAV Veras Recommendation: Cleanse wound daily with NORMAL SALINE only. Apply Santyl to gauze and place into wound bed. Cover with dry cover. Additional Information: Patient seen on [facility] [place] for left upper abdominal wound measuring 7cm x 3cm x 0.9cm with undermining noted from 3-6 o'clock deepest was 1.6cm @5 o'clock. Wound bed is moist with ~50% adherent yellow slough, ~30% pink tissue, and ~20% red non granulating tissue. There was minimal green and beige thick exudate without odor noted to undermining area when cleansed with NS and gauze. Wound margins are epibole. Santyl was applied as ordered and covered with 4x4 gauze and tape dated today. Arcelia Pickens [facility] Jul 12, 2017 13:38
--- NOTE | 2017-07-12 16:31 | EKG ---
Date Performed: 07/11/2017 Time Performed: 19:07:01 PTAGE: 77 years EKG: SINUS BRADYCARDIA WITH FIRST DEGREE AV BLOCK RIGHT BUNDLE BRANCH BLOCK Prolonged corrected QT interval. ABNORMAL ECG NO PREVIOUS TRACING DOCTOR: Chauncey Luciano Interpretating Date/Time 07/12/2017 16:30:53
--- NOTE | 2017-07-12 18:59 | HHI.CCPN ---
Subjective Remarks/Hospital Course 07/11: 77-year-old morbidly obese female patient sent in from skilled nursing, due to increased lethargy for the last 2 days, hypoglycemia early in the day with sugars of 44, given glucagon, chest x-ray showing a pneumonia according to facility staff, EMS noted the patient was fairly disoriented, GCS 6, and started bag valve masking her because of respiratory distress and hypoxia with sats in the 87% range despite oxygenation. Patient was brought in bag-valve- mask in progress and was immediately intubated in the emergency department by ED attending. 07/12: Sedated, orally intubated on mechanical ventilation. Objective Vital Signs Date Time Temp Pulse Resp B/P (MAP) Pulse Ox O2 Delivery O2 Flow Rate FiO2 07/12/17 18:00 64 07/12/17 16:50 98 40 07/12/17 16:00 98.8 20 100/50 (67) 07/11/17 21:20 Ventilator Intake and Output 07/12/17 07/12/17 07/13/17 08:00 16:00 00:00 Intake Total 1625 ml 1592 ml 1222 ml Output Total 470 ml 425 ml Balance 1155 ml 1167 ml 1222 ml Result Diagram: 07/12/17 0117 07/12/17 0117 Other Results Microbiology Date/Time Source Procedure Growth Status 07/11/17 19:15 Urine Catheterized Urine Legionella Antigen - Final PRESUMPTIVE NEGATIVE FOR LEGIONELLA P... Complete 07/11/17 19:15 Urine Catheterized Urine Streptococcus pneumoniae Antigen (M - Final PRESUMPTIVE NEGATIVE FOR STREPTOCOCCU... Complete Laboratory Tests Test 07/11/17 20:12 07/12/17 06:12 Blood Gas Puncture Site RT RADIAL LT BRACHIAL Blood Gas Patient Temperature 37.0 98.6 Blood Gas HCO3 26 mmol/L (22-26) 24 mmol/L (22-26) Blood Gas Base Excess -0.6 mmol/L (-2-2) -1.4 mmol/L (-2-2) Blood Gas Oxygen Saturation 97 % (90-100) 95 % (90-100) Arterial Blood pH 7.23 (7.380-7.420) 7.33 (7.380-7.420) Arterial Blood Partial Pressure CO2 64 mmHg (38-42) 46 mmHg (38-42) Arterial Blood Partial Pressure O2 247 mmHG (61-120) 120 mmHg (61-120) Arterial Blood Oxygen Content 12.0 Vol % (12.0-20.0) 11.0 Vol % (12.0-20.0) Arterial Blood Carboxyhemoglobin 2.1 % (0-4) 2.0 % (0-4) Arterial Blood Methemoglobin 0.6 % (0-2) 1.4 % (0-2) Blood Gas Hemoglobin 8.3 G/DL (12.0-16.0) 8.0 G/DL (12.0-16.0) Oxygen Delivery Device VENTILATOR VENTILATOR Blood Gas Ventilator Setting AC/16/500/PEEP7 AC/16/550/PEEP 7 Blood Gas Inspired Oxygen 100 % 50 % Imaging Last 24 hours Impressions Chest X-Ray 07/11/177 Signed Impressions: Service Date/Time: Tuesday, July 11, 2017 18:48 - CONCLUSION: 1. Endotracheal tube appears to be located approximately 1 cm above the melo. This could be pulled back 2 cm for more optimal positioning. 2. Perihilar and bibasilar infiltrates. Jaden Clark MD Objective Remarks GENERAL: Morbidly obese elderly female sedated and intubated. SKIN: Warm and dry. HEAD: Normocephalic. EYES: No scleral icterus. No injection or drainage. NECK: Supple, trachea midline. No JVD or lymphadenopathy. CARDIOVASCULAR: Regular rate and rhythm without murmurs, gallops, or rubs. RESPIRATORY: Orally intubated on mechanical ventilation, Breath sounds equal bilaterally. Scattered rhonchi, no wheezing GASTROINTESTINAL: Abdomen soft, non-tender, nondistended. MUSCULOSKELETAL: No cyanosis, or edema. BACK: Nontender without obvious deformity. NEURO EXAM: Mental Status: The patient is sedated and intubated. Cranial Nerves: Pupils are round, reactive to light. A/P Assessment and Plan Respiratory failure - Intubated for an airway protection - Questionable hospital-acquired pneumonia - Broad-spectrum antibiotics - Cultures and urine antigens - De-escalate per sensitivity and results - IV steroids - DuoNeb scheduled and when necessary Altered mental status - CT head pending - SIRS/sepsis - Broad-spectrum antibiotics and follow-up cultures Hypotension UTI - Septic shock - Aggressive IV fluid rehydration - Levophed when necessary keep MEP above 65 - Broad-spectrum antibiotics Diabetes mellitus - Insulin sliding scale - Glucerna - Resume long-acting insulins went tube feeds at goal Hypothyroidism - Levothyroxine Arrhythmias - Continue amiodarone History of hypertension - Hold all antihypertensive meds due to hypotension Seizure disorder - Keppra Neuropathy - Gabapentin - Amitriptyline DVT GI prophylaxis - Teds SCDs - Subcutaneous heparin - IV Pepcid Critical Care: The total critical care time was 35 minutes. Time to perform other separately billable procedures was not included in the critical care time. Gerard Zepeda MD Jul 12, 2017 18:59
[2017-07-12] MEDS: AMITRIPTYLINE HCL 10 MG TAB PO SCH (21:00)
[2017-07-12] MEDS: AZITHROMYCIN INJ 500 MG in SODIUM CHLOR 0.9% 250 ML INJ 250 ML IV SCH (21:05)
[2017-07-13] VITALS (19 sets, daily range): BP systolic 87–108; BP diastolic 43–54; PULSE 55–70; RESP 16–20; TEMP 98.6–98.7; O2SAT 97–100
[2017-07-13] MEDS: SODIUM CHLOR 0.9% 1000 ML INJ 1,000 ML IV SCH ×2 (00:51→06:05)
[2017-07-13] MEDS: CHLORHEXIDINE GLUCONATE 2 % 1 PACK (2 CLOTHS) TOP SCH (02:29)
[2017-07-13] MEDS: PIPERACIL-TAZO 4.5 GM PREMIX 100 ML IV SCH ×3 (02:29→11:56)
[2017-07-13] MEDS: HYDROCORTISONE SOD SUCCINATE 100 MG VIAL IV PUSH SCH ×3 (02:29→21:02)
[2017-07-13] MEDS: RESP: ALBUTEROL 2.5 MG/IPRATROPIUM 0.5 MG NEB (SCH) INH ×4 (03:57→22:08)
[2017-07-13] MEDS: fentaNYL DRIP 250 ML IV PRN ×2 (04:21→20:58)
[2017-07-13] MEDS: HEPARIN SODIUM - SQ 10,000 UNITS/ML VIAL SQ SCH ×3 (04:21→21:02)
[2017-07-13] MEDS: LEVOTHYROXINE SODIUM 25 MCG TAB PO SCH (06:00)
[2017-07-13 06:53] LABS: AUTOMATED NEUTROPHIL # 5.7 TH/MM3 (1.8-7.7); BASOPHIL % 0.2 % (0.0-2.0); EOSINOPHIL % 0.1 % (0.0-4.0); HEMATOCRIT 23.7 % (35.0-46.0); HEMOGLOBIN 7.8 GM/DL (11.6-15.3); LYMPHOCYTE # 0.3 TH/MM3 (1.0-4.8); MEAN CELL VOLUME 94.4 FL (80.0-100.0); MEAN CORPUSCULAR HGB CONC 32.8 % (32.0-36.0); MEAN PLATELET VOLUME 8.3 FL (7.0-11.0); MONO % 4.3 % (0.0-8.0); MONOCYTE # 0.3 TH/MM3 (0-0.9); NEUT % 91.4 % (16.0-70.0); PLATELET COUNT 97 TH/MM3 (150-450); RED BLOOD COUNT 2.51 MIL/MM3 (4.00-5.30); RED CELL DISTRIBUTION WIDTH 20.8 % (11.6-17.2); WHITE BLOOD COUNT 6.3 TH/MM3 (4.0-11.0)
[2017-07-13 07:30] LABS: ALBUMIN 1.9 GM/DL (3.4-5.0); ALKALINE PHOSPHATASE 146 U/L (45-117); ALT (GPT) 42 U/L (10-53); AST (GOT) 27 U/L (15-37); BICARBONATE 22.1 MEQ/L (21.0-32.0); BLOOD UREA NITROGEN 84 MG/DL (7-18); CALCIUM 7.8 MG/DL (8.5-10.1); CHLORIDE 103 MEQ/L (98-107); CREATININE 1.64 MG/DL (0.50-1.00); GLOMERULAR FILTRATION RATE 31 ML/MIN (>89); GLUCOSE,RANDOM 182 MG/DL (74-106); RANDOM VANCOMYCIN 18.8 COMMENT; SODIUM (NA) 135 MEQ/L (136-145); TOTAL BILIRUBIN ADULT 0.3 MG/DL (0.2-1.0); TOTAL PROTEIN 5.6 GM/DL (6.4-8.2)
[2017-07-13] MEDS: FOLIC ACID 1 MG TAB PO SCH (07:48)
[2017-07-13] MEDS: ASCORBIC ACID 500 MG TAB PO SCH ×2 (07:48→21:03)
[2017-07-13] MEDS: AMIODARONE 200 MG TAB PO SCH ×2 (07:48→21:03)
[2017-07-13] MEDS: GABAPENTIN 300 MG CAP PO SCH (07:48)
[2017-07-13] MEDS: FERROUS SULFATE 300 MG /5ML UDC PO SCH ×2 (07:48→21:01)
[2017-07-13] MEDS: DOCUSATE SODIUM 50 MG/SENNA 8.6 MG TAB PO SCH ×2 (07:48→21:03)
[2017-07-13] MEDS: FAMOTIDINE 20 MG/2 ML VIAL IV PUSH SCH ×2 (07:49→21:01)
[2017-07-13] MEDS: levETIRAcetam 500 MG/5 ML UDC NG SCH ×2 (07:49→21:01)
[2017-07-13] MEDS: MULTIVITAMIN TAB PO SCH (07:49)
[2017-07-13] MEDS: ZINC SULFATE 220 MG CAP PO SCH (07:49)
[2017-07-13] MEDS: busPIRone HCL 10 MG TAB PO SCH ×2 (07:49→21:00)
[2017-07-13] MEDS: SODIUM CHLORIDE 0.9% FLUSH 10 ML FLUSH IV FLUSH SCH ×2 (07:50→21:01)
[2017-07-13] MEDS: INSULIN ASPART SUPPLEMENTAL SCALE SQ SCH (07:50)
[2017-07-13] MEDS: ARTIFICIAL TEARS OPTH SOLN 15 ML BTL EACH EYE SCH ×3 (07:51→17:44)
[2017-07-13] MEDS: COLLAGENASE OINT 30 GM TUBE TOPICAL SCH (07:52)
[2017-07-13] MEDS ORDERED: SODIUM POLYSTYRENE SULFONATE SUSP 15 GM/60 ML CUP PO ONE (09:15)
[2017-07-13] MEDS ORDERED: DEXMEDETOMIDINE INJ 200 MCG in SODIUM CHLORIDE 0.9% INJ 50 ML IV PRN (09:15)
[2017-07-13] MEDS ORDERED: FUROSEMIDE 40 MG/4 ML VIAL IV PUSH ONE (09:15)
--- NOTE | 2017-07-13 09:30 | HHI.CCPN ---
Subjective Remarks/Hospital Course 07/11: 77-year-old morbidly obese female patient sent in from shelter, due to increased lethargy for the last 2 days, hypoglycemia early in the day with sugars of 44, given glucagon, chest x-ray showing a pneumonia according to facility staff, EMS noted the patient was fairly disoriented, GCS 6, and started bag valve masking her because of respiratory distress and hypoxia with sats in the 87% range despite oxygenation. Patient was brought in bag-valve- mask in progress and was immediately intubated in the emergency department by ED attending. 07/12: Sedated, orally intubated on mechanical ventilation. 07/13 Patient is sedated with Fentanyl and intubated. Afebrile. Objective Vital Signs Date Time Temp Pulse Resp B/P (MAP) Pulse Ox O2 Delivery O2 Flow Rate FiO2 07/13/17 08:34 98 40 07/13/17 06:00 60 07/13/17 04:00 98.1 16 95/46 (62) 07/11/17 21:20 Ventilator Intake and Output 07/13/17 07/13/17 07/14/17 08:00 16:00 00:00 Intake Total 2870 ml Output Total 700 ml Balance 2170 ml Result Diagram: 07/13/1718 07/13/1718 Other Results Laboratory Tests Test 07/13/17 06:18 White Blood Count 6.3 TH/MM3 Red Blood Count 2.51 MIL/MM3 Hemoglobin 7.8 GM/DL Hematocrit 23.7 % Mean Corpuscular Volume 94.4 FL Mean Corpuscular Hemoglobin 31.0 PG Mean Corpuscular Hemoglobin Concent 32.8 % Red Cell Distribution Width 20.8 % Platelet Count 97 TH/MM3 Mean Platelet Volume 8.3 FL Neutrophils (%) (Auto) 91.4 % Lymphocytes (%) (Auto) 4.0 % Monocytes (%) (Auto) 4.3 % Eosinophils (%) (Auto) 0.1 % Basophils (%) (Auto) 0.2 % Neutrophils # (Auto) 5.7 TH/MM3 Lymphocytes # (Auto) 0.3 TH/MM3 Monocytes # (Auto) 0.3 TH/MM3 Eosinophils # (Auto) 0.0 TH/MM3 Basophils # (Auto) 0.0 TH/MM3 CBC Comment AUTO DIFF Differential Comment AUTO DIFF CONFIRMED Platelet Estimate LOW Platelet Morphology Comment NORMAL Blood Urea Nitrogen 84 MG/DL Creatinine 1.64 MG/DL Random Glucose 182 MG/DL Total Protein 5.6 GM/DL Albumin 1.9 GM/DL Calcium Level 7.8 MG/DL Alkaline Phosphatase 146 U/L Aspartate Amino Transf (AST/SGOT) 27 U/L Alanine Aminotransferase (ALT/SGPT) 42 U/L Total Bilirubin 0.3 MG/DL Sodium Level 135 MEQ/L Potassium Level 5.4 MEQ/L Chloride Level 103 MEQ/L Carbon Dioxide Level 22.1 MEQ/L Anion Gap 10 MEQ/L Estimat Glomerular Filtration Rate 31 ML/MIN Random Vancomycin Level 18.8 COMMENT Imaging Last Impressions Chest X-Ray 07/12/17 0600 Signed Impressions: Service Date/Time: July 04:10 - CONCLUSION: Moderate cardiomegaly with hazy bilateral alveolar opacities and small old apparent effusions. The findings remain most characteristic of congestive heart failure. Phil South MD Head CT 07/11/17 1827 Signed Impressions: Service Date/Time: Tuesday, July 11, 2017 21:23 - CONCLUSION: No acute intracranial abnormality Jaden Clark MD Objective Remarks GENERAL: Morbidly obese elderly female sedated and intubated. SKIN: Warm and dry. HEAD: Normocephalic. EYES: No scleral icterus. No injection or drainage. NECK: Supple, trachea midline. No JVD or lymphadenopathy. CARDIOVASCULAR: Regular rate and rhythm without murmurs, gallops, or rubs. RESPIRATORY: Orally intubated on mechanical ventilation, Breath sounds equal bilaterally. Scattered rhonchi, no wheezing GASTROINTESTINAL: Abdomen soft, non-tender, nondistended. MUSCULOSKELETAL: No cyanosis, or edema. BACK: Nontender without obvious deformity. NEURO EXAM: Mental Status: The patient is sedated and intubated. Cranial Nerves: Pupils are round, reactive to light. A/P Assessment and Plan Respiratory failure Altered mental status UTI Diabetes mellitus RADHA Anemia Hypothyroidism History of hypertension Seizure disorder Neuropathy Plan Neuro: Monitor neuro status. On Fentanyl drip for sedation. Daily sedation vacation. Place on Precedex drip to facilitate with weaning trials. On Keppra 500mg Q12 Pulm: Continue with vent support keep sat >92% Bronchodilators, ICU vent bundle. Start SBT daily as lisa Decrease HC 50mg Q12 CV: Monitor HR and BP keep MAP>65mmHg On Amiodarone 200mg BID : Monitor renal function, electrolytes replaceemnt as needed. d/c IVF diurese with Lasix 40mg x1. Cr: 1.64 today, UOP: 1325ml since yesterday GI: On Glucerna 1.5@65ml/hr ID: Continue abx ( Zosyn, Azithromycin) monitor for signs of infections ( Fever , WBC) Urine cx: 07/11: GNR Heme: Monitor CBC, on Ferrous sulfate and Folic acid Endo: SSI for glycemic control GI prophylaxis- on Pepcid DVT prophylaxis- Heparin SQ Level 3 Brittani Mercado MD Jul 13, 2017 09:30
[2017-07-13] MEDS ORDERED: DEXTROSE 50% IN WATER 50 ML VIAL(D50) IV PUSH PRN (09:45)
[2017-07-13] MEDS ORDERED: GLUCAGON 1 MG/ML VIAL OTHER PRN (09:45)
[2017-07-13] MEDS: INSULIN NovoLIN REGULAR SUPPLEMENTAL SCALE SQ SCH ×3 (10:00→21:13)
[2017-07-13] MEDS: MIDAZOLAM 100 MG/100 ML INJ 100 ML IV PRN (10:21)
[2017-07-13 12:37] LABS: AUTOMATED NEUTROPHIL # 6.5 TH/MM3 (1.8-7.7); BASOPHIL % 0.6 % (0.0-2.0); EOSINOPHIL % 0.1 % (0.0-4.0); HEMATOCRIT 25.7 % (35.0-46.0); HEMOGLOBIN 8.4 GM/DL (11.6-15.3); LYMPHOCYTE # 0.3 TH/MM3 (1.0-4.8); MEAN CELL VOLUME 95.4 FL (80.0-100.0); MEAN CORPUSCULAR HEMOGLOBIN 31.1 PG (27.0-34.0); MEAN CORPUSCULAR HGB CONC 32.6 % (32.0-36.0); MEAN PLATELET VOLUME 8.3 FL (7.0-11.0); MONO % 4.9 % (0.0-8.0); MONOCYTE # 0.3 TH/MM3 (0-0.9); NEUT % 90.4 % (16.0-70.0); PLATELET COUNT 112 TH/MM3 (150-450); RED BLOOD COUNT 2.69 MIL/MM3 (4.00-5.30); RED CELL DISTRIBUTION WIDTH 21.2 % (11.6-17.2); WHITE BLOOD COUNT 7.1 TH/MM3 (4.0-11.0)
[2017-07-13] MEDS ORDERED: VANCOMYCIN 1,500 MG/NS 500 ML IV ONE ×2 (15:00)
[2017-07-13] MEDS: PIPERACIL-TAZO 3.375 GM PREMIX 50 ML IV SCH ×2 (17:44→23:55)
[2017-07-13] MEDS: AZITHROMYCIN INJ 500 MG in SODIUM CHLOR 0.9% 250 ML INJ 250 ML IV SCH (20:57)
[2017-07-13] MEDS: AMITRIPTYLINE HCL 10 MG TAB PO SCH (21:00)
[2017-07-14] VITALS (17 sets, daily range): BP systolic 110–129; BP diastolic 54–62; PULSE 57–79; RESP 16–28; TEMP 97.7–98; O2SAT 96–100
[2017-07-14] MEDS: INSULIN NovoLIN REGULAR SUPPLEMENTAL SCALE SQ SCH ×4 (04:00→21:16)
[2017-07-14] MEDS: CHLORHEXIDINE GLUCONATE 2 % 1 PACK (2 CLOTHS) TOP SCH (04:00)
[2017-07-14] MEDS: RESP: ALBUTEROL 2.5 MG/IPRATROPIUM 0.5 MG NEB (SCH) INH ×4 (04:55→21:18)
[2017-07-14] MEDS: HEPARIN SODIUM - SQ 10,000 UNITS/ML VIAL SQ SCH ×3 (05:00→20:42)
[2017-07-14] MEDS: LEVOTHYROXINE SODIUM 25 MCG TAB PO SCH (05:53)
[2017-07-14] MEDS: PIPERACIL-TAZO 3.375 GM PREMIX 50 ML IV SCH ×2 (05:53→12:45)
[2017-07-14 07:58] LABS: CALCIUM 8.2 MG/DL (8.5-10.1); CREATININE 1.89 MG/DL (0.50-1.00); RANDOM VANCOMYCIN 26.9 COMMENT
[2017-07-14 08:18] LABS: AUTOMATED NEUTROPHIL # 5.4 TH/MM3 (1.8-7.7); BASOPHIL % 0.2 % (0.0-2.0); EOSINOPHIL % 0.4 % (0.0-4.0); HEMATOCRIT 23.1 % (35.0-46.0); HEMOGLOBIN 7.6 GM/DL (11.6-15.3); LYMPH % 7.6 % (9.0-44.0); LYMPHOCYTE # 0.5 TH/MM3 (1.0-4.8); MEAN CELL VOLUME 94.7 FL (80.0-100.0); MEAN CORPUSCULAR HGB CONC 32.7 % (32.0-36.0); MEAN PLATELET VOLUME 8.3 FL (7.0-11.0); MONO % 7.6 % (0.0-8.0); MONOCYTE # 0.5 TH/MM3 (0-0.9); NEUT % 84.2 % (16.0-70.0); PLATELET COUNT 89 TH/MM3 (150-450); RED BLOOD COUNT 2.44 MIL/MM3 (4.00-5.30); RED CELL DISTRIBUTION WIDTH 20.7 % (11.6-17.2); WHITE BLOOD COUNT 6.5 TH/MM3 (4.0-11.0)
[2017-07-14] MEDS: GABAPENTIN 300 MG CAP PO SCH (08:50)
[2017-07-14] MEDS: busPIRone HCL 10 MG TAB PO SCH ×2 (08:50→20:42)
[2017-07-14] MEDS: ZINC SULFATE 220 MG CAP PO SCH (08:51)
[2017-07-14] MEDS: MULTIVITAMIN TAB PO SCH (08:51)
[2017-07-14] MEDS: FERROUS SULFATE 300 MG /5ML UDC PO SCH ×2 (08:51→20:43)
[2017-07-14] MEDS: AMIODARONE 200 MG TAB PO SCH ×2 (08:51→20:42)
[2017-07-14] MEDS: DOCUSATE SODIUM 50 MG/SENNA 8.6 MG TAB PO SCH ×2 (08:51→20:43)
[2017-07-14] MEDS: FOLIC ACID 1 MG TAB PO SCH (08:51)
[2017-07-14] MEDS: levETIRAcetam 500 MG/5 ML UDC NG SCH ×2 (08:51→20:43)
[2017-07-14] MEDS: HYDROCORTISONE SOD SUCCINATE 100 MG VIAL IV PUSH SCH ×2 (08:51→20:43)
[2017-07-14] MEDS: ASCORBIC ACID 500 MG TAB PO SCH ×2 (08:51→20:42)
[2017-07-14] MEDS: FAMOTIDINE 20 MG/2 ML VIAL IV PUSH SCH ×2 (08:51→20:43)
[2017-07-14] MEDS: SODIUM CHLORIDE 0.9% FLUSH 10 ML FLUSH IV FLUSH PRN (08:52)
[2017-07-14] MEDS: COLLAGENASE OINT 30 GM TUBE TOPICAL SCH (08:52)
[2017-07-14] MEDS: SODIUM CHLORIDE 0.9% FLUSH 10 ML FLUSH IV FLUSH SCH ×2 (08:52→20:44)
[2017-07-14] MEDS: ARTIFICIAL TEARS OPTH SOLN 15 ML BTL EACH EYE SCH ×3 (08:52→17:22)
[2017-07-14 08:57] LABS: TOXIC GRANULATION 1+ (NORMAL)
--- NOTE | 2017-07-14 09:16 | HHI.CCPN ---
Subjective Remarks/Hospital Course 07/11: 77-year-old morbidly obese female patient sent in from alf, due to increased lethargy for the last 2 days, hypoglycemia early in the day with sugars of 44, given glucagon, chest x-ray showing a pneumonia according to facility staff, EMS noted the patient was fairly disoriented, GCS 6, and started bag valve masking her because of respiratory distress and hypoxia with sats in the 87% range despite oxygenation. Patient was brought in bag-valve- mask in progress and was immediately intubated in the emergency department by ED attending. 07/12: Sedated, orally intubated on mechanical ventilation. 07/13 Patient is sedated with Fentanyl and intubated. Afebrile. 07/14 No evenst overnight, Sedated with Fentanyl and Versed. Afebrile. Failed CPAP trials yesterday. Objective Vital Signs Date Time Temp Pulse Resp B/P (MAP) Pulse Ox O2 Delivery O2 Flow Rate FiO2 07/14/17 06:00 64 07/14/17 04:55 100 40 07/14/17 04:00 97.7 16 121/58 (79) 07/11/17 21:20 Ventilator Intake and Output 07/14/17 07/14/17 07/15/17 08:00 16:00 00:00 Intake Total 970 ml Output Total 475 ml Balance 495 ml Result Diagram: 07/14/17 0750 07/14/17 0549 Other Results Laboratory Tests Test 07/13/17 12:00 07/13/17 15:51 07/14/17 05:49 07/14/17 07:50 White Blood Count 7.1 TH/MM3 6.5 TH/MM3 Red Blood Count 2.69 MIL/MM3 2.44 MIL/MM3 Hemoglobin 8.4 GM/DL 7.6 GM/DL Hematocrit 25.7 % 23.1 % Mean Corpuscular Volume 95.4 FL 94.7 FL Mean Corpuscular Hemoglobin 31.1 PG 31.0 PG Mean Corpuscular Hemoglobin Concent 32.6 % 32.7 % Red Cell Distribution Width 21.2 % 20.7 % Platelet Count 112 TH/MM3 89 TH/MM3 Mean Platelet Volume 8.3 FL 8.3 FL Neutrophils (%) (Auto) 90.4 % 84.2 % Lymphocytes (%) (Auto) 4.0 % 7.6 % Monocytes (%) (Auto) 4.9 % 7.6 % Eosinophils (%) (Auto) 0.1 % 0.4 % Basophils (%) (Auto) 0.6 % 0.2 % Neutrophils # (Auto) 6.5 TH/MM3 5.4 TH/MM3 Lymphocytes # (Auto) 0.3 TH/MM3 0.5 TH/MM3 Monocytes # (Auto) 0.3 TH/MM3 0.5 TH/MM3 Eosinophils # (Auto) 0.0 TH/MM3 0.0 TH/MM3 Basophils # (Auto) 0.0 TH/MM3 0.0 TH/MM3 CBC Comment DIFF FINAL AUTO DIFF Differential Comment AUTO DIFF CONFIRMED Potassium Level 5.1 MEQ/L 5.8 MEQ/L Blood Urea Nitrogen 90 MG/DL Creatinine 1.89 MG/DL Random Glucose 160 MG/DL Calcium Level 8.2 MG/DL Sodium Level 137 MEQ/L Chloride Level 105 MEQ/L Carbon Dioxide Level 22.0 MEQ/L Anion Gap 10 MEQ/L Estimat Glomerular Filtration Rate 26 ML/MIN Random Vancomycin Level 26.9 COMMENT Toxic Granulation 1+ Platelet Estimate LOW Platelet Morphology Comment NORMAL Imaging Last Impressions Chest X-Ray 07/12/17 0600 Signed Impressions: Service Date/Time: July 04:10 - CONCLUSION: Moderate cardiomegaly with hazy bilateral alveolar opacities and small old apparent effusions. The findings remain most characteristic of congestive heart failure. Phil South MD Head CT 07/11/17 1827 Signed Impressions: Service Date/Time: Tuesday, July 11, 2017 21:23 - CONCLUSION: No acute intracranial abnormality Jaden Clark MD Objective Remarks GENERAL: Morbidly obese elderly female sedated and intubated. SKIN: Warm and dry. HEAD: Normocephalic. EYES: No scleral icterus. No injection or drainage. NECK: Supple, trachea midline. No JVD or lymphadenopathy. CARDIOVASCULAR: Regular rate and rhythm without murmurs, gallops, or rubs. RESPIRATORY: Orally intubated on mechanical ventilation, Breath sounds equal bilaterally. Scattered rhonchi, no wheezing GASTROINTESTINAL: Abdomen soft, non-tender, nondistended. MUSCULOSKELETAL: No cyanosis, or edema. BACK: Nontender without obvious deformity. NEURO EXAM: Mental Status: The patient is sedated and intubated. Cranial Nerves: Pupils are round, reactive to light. A/P Assessment and Plan Respiratory failure Altered mental status UTI Diabetes mellitus RADHA Anemia Hypothyroidism History of hypertension Seizure disorder Neuropathy Plan Neuro: Monitor neuro status. On Fentanyl/Versed drips for sedation. Daily sedation vacation. Precedex drip to facilitate with weaning trials. On Keppra 500mg Q12 Pulm: Continue with vent support keep sat >92% Bronchodilators, ICU vent bundle. SBT daily as lisa HC 50mg Q12 CV: Monitor HR and BP keep MAP>65mmHg On Amiodarone 200mg BID : Monitor renal function, electrolytes replaceemnt as needed. Diurese with Lasix 40mg x1. Cr: 1.1.89 today, UOP:975 ml since yesterday Will give 7u IV insulin, D50 for K 5.8 repeat BMP at 12 pm GI: On Glucerna 1.5@65ml/hr, On roly colace, add Lactulose for bowel regimen ID: Change Zosyn to Imipenem, on Azithromycin monitor for signs of infections ( Fever, WBC) Urine cx: 07/11: Kleb ESBL, Citrobacter Heme: Monitor CBC, on Ferrous sulfate and Folic acid Endo: SSI for glycemic control GI prophylaxis- on Pepcid DVT prophylaxis- Heparin SQ Level 3 Brittani Mercado MD Jul 14, 2017 09:16
[2017-07-14] MEDS ORDERED: SODIUM POLYSTYRENE SULFONATE SUSP 15 GM/60 ML CUP PO ONE ×2 (09:30→14:30)
[2017-07-14] MEDS ORDERED: FUROSEMIDE 40 MG/4 ML VIAL IV PUSH ONE (09:30)
[2017-07-14] MEDS ORDERED: INSULIN HUMAN REGULAR 1,000 UNITS/10 ML VIAL IV PUSH ONE (09:30)
[2017-07-14] MEDS ORDERED: DEXTROSE 50% IN WATER 50 ML SYRINGE IV PUSH ONE (09:30)
[2017-07-14] MEDS: LACTULOSE SYRUP 20 GM/30 ML CUP PO SCH ×2 (12:46→17:21)
[2017-07-14 13:41] LABS: AUTOMATED NEUTROPHIL # 8.1 TH/MM3 (1.8-7.7); BASOPHIL % 0.2 % (0.0-2.0); EOSINOPHIL % 0.4 % (0.0-4.0); HEMATOCRIT 25.8 % (35.0-46.0); HEMOGLOBIN 8.5 GM/DL (11.6-15.3); LYMPH % 4.2 % (9.0-44.0); LYMPHOCYTE # 0.4 TH/MM3 (1.0-4.8); MEAN CELL VOLUME 96.1 FL (80.0-100.0); MEAN CORPUSCULAR HEMOGLOBIN 31.8 PG (27.0-34.0); MEAN CORPUSCULAR HGB CONC 33.1 % (32.0-36.0); MEAN PLATELET VOLUME 8.4 FL (7.0-11.0); MONO % 5.1 % (0.0-8.0); MONOCYTE # 0.5 TH/MM3 (0-0.9); NEUT % 90.1 % (16.0-70.0); PLATELET COUNT 100 TH/MM3 (150-450); RED BLOOD COUNT 2.68 MIL/MM3 (4.00-5.30)
[2017-07-14 13:55] LABS: BICARBONATE 22.7 MEQ/L (21.0-32.0); CALCIUM 8.5 MG/DL (8.5-10.1); CREATININE 1.85 MG/DL (0.50-1.00)
[2017-07-14] MEDS: IMIPENEM/CILASTATIN INJ 250 MG in SODIUM CHLORIDE 0.9% INJ 100 ML IV SCH ×2 (17:22→20:44)
[2017-07-14] MEDS: AMITRIPTYLINE HCL 10 MG TAB PO SCH (20:43)
[2017-07-14] MEDS: AZITHROMYCIN INJ 500 MG in SODIUM CHLOR 0.9% 250 ML INJ 250 ML IV SCH (20:44)
[2017-07-15] VITALS (17 sets, daily range): BP systolic 96–156; BP diastolic 47–67; PULSE 58–101; RESP 16–27; TEMP 97.1–98.2; O2SAT 97–100
[2017-07-15] MEDS: CHLORHEXIDINE GLUCONATE 2 % 1 PACK (2 CLOTHS) TOP SCH ×2 (00:12→21:03)
[2017-07-15] MEDS: MIDAZOLAM 100 MG/100 ML INJ 100 ML IV PRN (01:16)
[2017-07-15] MEDS: IMIPENEM/CILASTATIN INJ 250 MG in SODIUM CHLORIDE 0.9% INJ 100 ML IV SCH ×4 (03:37→21:21)
[2017-07-15] MEDS: INSULIN NovoLIN REGULAR SUPPLEMENTAL SCALE SQ SCH ×4 (03:37→21:21)
[2017-07-15] MEDS: RESP: ALBUTEROL 2.5 MG/IPRATROPIUM 0.5 MG NEB (SCH) INH ×4 (03:48→20:26)
[2017-07-15] MEDS: LEVOTHYROXINE SODIUM 25 MCG TAB PO SCH (05:36)
[2017-07-15] MEDS: HEPARIN SODIUM - SQ 10,000 UNITS/ML VIAL SQ SCH ×3 (05:37→21:22)
[2017-07-15 07:01] LABS: AUTOMATED NEUTROPHIL # 5.7 TH/MM3 (1.8-7.7); BASOPHIL % 0.3 % (0.0-2.0); EOSINOPHIL # 0.1 TH/MM3 (0-0.4); EOSINOPHIL % 1.2 % (0.0-4.0); HEMATOCRIT 22.2 % (35.0-46.0); HEMOGLOBIN 7.2 GM/DL (11.6-15.3); LYMPH % 5.8 % (9.0-44.0); LYMPHOCYTE # 0.4 TH/MM3 (1.0-4.8); MEAN CELL VOLUME 96.9 FL (80.0-100.0); MEAN CORPUSCULAR HEMOGLOBIN 31.5 PG (27.0-34.0); MEAN CORPUSCULAR HGB CONC 32.5 % (32.0-36.0); MEAN PLATELET VOLUME 8.9 FL (7.0-11.0); MONO % 8.2 % (0.0-8.0); MONOCYTE # 0.5 TH/MM3 (0-0.9); NEUT % 84.5 % (16.0-70.0); PLATELET COUNT 86 TH/MM3 (150-450); RED BLOOD COUNT 2.29 MIL/MM3 (4.00-5.30); RED CELL DISTRIBUTION WIDTH 21.1 % (11.6-17.2); WHITE BLOOD COUNT 6.7 TH/MM3 (4.0-11.0)
[2017-07-15 07:23] LABS: BICARBONATE 24.6 MEQ/L (21.0-32.0); CALCIUM 8.2 MG/DL (8.5-10.1); CREATININE 1.93 MG/DL (0.50-1.00)
[2017-07-15 07:25] LABS: RANDOM VANCOMYCIN 23.9 COMMENT
[2017-07-15] MEDS: GABAPENTIN 300 MG CAP PO SCH (08:11)
[2017-07-15] MEDS: LACTULOSE SYRUP 20 GM/30 ML CUP PO SCH ×3 (08:11→16:57)
[2017-07-15] MEDS: HYDROCORTISONE SOD SUCCINATE 100 MG VIAL IV PUSH SCH ×2 (08:11→21:22)
[2017-07-15] MEDS: FAMOTIDINE 20 MG/2 ML VIAL IV PUSH SCH ×2 (08:11→21:22)
[2017-07-15] MEDS: AMIODARONE 200 MG TAB PO SCH ×2 (08:12→21:22)
[2017-07-15] MEDS: ASCORBIC ACID 500 MG TAB PO SCH ×2 (08:12→21:22)
[2017-07-15] MEDS: ZINC SULFATE 220 MG CAP PO SCH (08:12)
[2017-07-15] MEDS: FOLIC ACID 1 MG TAB PO SCH (08:12)
[2017-07-15] MEDS: levETIRAcetam 500 MG/5 ML UDC NG SCH ×2 (08:12→21:21)
[2017-07-15] MEDS: busPIRone HCL 10 MG TAB PO SCH ×2 (08:12→21:22)
[2017-07-15] MEDS: MULTIVITAMIN TAB PO SCH (08:12)
[2017-07-15] MEDS: FERROUS SULFATE 300 MG /5ML UDC PO SCH ×2 (08:12→21:22)
[2017-07-15] MEDS: ARTIFICIAL TEARS OPTH SOLN 15 ML BTL EACH EYE SCH ×3 (08:12→16:58)
[2017-07-15] MEDS: DOCUSATE SODIUM 50 MG/SENNA 8.6 MG TAB PO SCH ×2 (08:12→21:23)
[2017-07-15] MEDS: SODIUM CHLORIDE 0.9% FLUSH 10 ML FLUSH IV FLUSH SCH ×2 (08:12→21:22)
[2017-07-15] MEDS: SODIUM CHLORIDE 0.9% FLUSH 10 ML FLUSH IV FLUSH PRN (08:13)
[2017-07-15] MEDS: COLLAGENASE OINT 30 GM TUBE TOPICAL SCH (08:13)
--- NOTE | 2017-07-15 08:41 | HHI.CCPN ---
Subjective Remarks/Hospital Course 07/11: 77-year-old morbidly obese female patient sent in from group home, due to increased lethargy for the last 2 days, hypoglycemia early in the day with sugars of 44, given glucagon, chest x-ray showing a pneumonia according to facility staff, EMS noted the patient was fairly disoriented, GCS 6, and started bag valve masking her because of respiratory distress and hypoxia with sats in the 87% range despite oxygenation. Patient was brought in bag-valve- mask in progress and was immediately intubated in the emergency department by ED attending. 07/12: Sedated, orally intubated on mechanical ventilation. 07/13 Patient is sedated with Fentanyl and intubated. Afebrile. 07/14 No events overnight, Sedated with Fentanyl and Versed. Afebrile. Failed CPAP trials yesterday. 07/15 No events overnight. Sedated and intubated. ABG on CPAP yesterday showed resp acidosis with PH 7.22 and CO2: 58 Objective Vital Signs Date Time Temp Pulse Resp B/P (MAP) Pulse Ox O2 Delivery O2 Flow Rate FiO2 07/15/17 08:14 100 40 07/15/17 06:00 58 07/15/17 04:00 97.3 16 96/47 (63) 07/11/17 21:20 Ventilator Intake and Output 07/15/17 07/15/17 07/15/17 07:59 15:59 23:59 Intake Total 857.8 ml 20 ml Output Total 600 ml Balance 257.8 ml 20 ml Result Diagram: 07/15/17 0547 07/15/17 0547 Other Results Laboratory Tests Test 07/14/17 13:00 07/14/17 14:02 07/14/17 18:53 07/15/17 05:47 White Blood Count 9.0 TH/MM3 6.7 TH/MM3 Red Blood Count 2.68 MIL/MM3 2.29 MIL/MM3 Hemoglobin 8.5 GM/DL 7.2 GM/DL Hematocrit 25.8 % 22.2 % Mean Corpuscular Volume 96.1 FL 96.9 FL Mean Corpuscular Hemoglobin 31.8 PG 31.5 PG Mean Corpuscular Hemoglobin Concent 33.1 % 32.5 % Red Cell Distribution Width 21.0 % 21.1 % Platelet Count 100 TH/MM3 86 TH/MM3 Mean Platelet Volume 8.4 FL 8.9 FL Neutrophils (%) (Auto) 90.1 % 84.5 % Lymphocytes (%) (Auto) 4.2 % 5.8 % Monocytes (%) (Auto) 5.1 % 8.2 % Eosinophils (%) (Auto) 0.4 % 1.2 % Basophils (%) (Auto) 0.2 % 0.3 % Neutrophils # (Auto) 8.1 TH/MM3 5.7 TH/MM3 Lymphocytes # (Auto) 0.4 TH/MM3 0.4 TH/MM3 Monocytes # (Auto) 0.5 TH/MM3 0.5 TH/MM3 Eosinophils # (Auto) 0.0 TH/MM3 0.1 TH/MM3 Basophils # (Auto) 0.0 TH/MM3 0.0 TH/MM3 CBC Comment DIFF FINAL AUTO DIFF Differential Comment AUTO DIFF CONFIRMED Blood Urea Nitrogen 93 MG/DL 90 MG/DL Creatinine 1.85 MG/DL 1.93 MG/DL Random Glucose 155 MG/DL 182 MG/DL Calcium Level 8.5 MG/DL 8.2 MG/DL Sodium Level 136 MEQ/L 139 MEQ/L Potassium Level 5.4 MEQ/L 5.0 MEQ/L 4.9 MEQ/L Chloride Level 104 MEQ/L 105 MEQ/L Carbon Dioxide Level 22.7 MEQ/L 24.6 MEQ/L Anion Gap 9 MEQ/L 9 MEQ/L Estimat Glomerular Filtration Rate 27 ML/MIN 25 ML/MIN Blood Gas Puncture Site RT RADIAL Blood Gas Patient Temperature 98.6 Blood Gas HCO3 23 mmol/L Blood Gas Base Excess -3.7 mmol/L Blood Gas Oxygen Saturation 95 % Arterial Blood pH 7.22 Arterial Blood Partial Pressure CO2 58 mmHg Arterial Blood Partial Pressure O2 123 mmHg Arterial Blood Oxygen Content 11.3 Vol % Arterial Blood Carboxyhemoglobin 2.0 % Arterial Blood Methemoglobin 1.2 % Blood Gas Hemoglobin 8.3 G/DL Oxygen Delivery Device VENTILATOR Blood Gas Ventilator Setting CPAP 5/10PS Blood Gas Inspired Oxygen 40 % Platelet Estimate LOW Platelet Morphology Comment NORMAL Random Vancomycin Level 23.9 COMMENT Imaging Last Impressions Chest X-Ray 07/12/17 0600 Signed Impressions: Service Date/Time: July 04:10 - CONCLUSION: Moderate cardiomegaly with hazy bilateral alveolar opacities and small old apparent effusions. The findings remain most characteristic of congestive heart failure. Phil South MD Head CT 07/11/17 8580 Signed Impressions: Service Date/Time: Tuesday, July 11, 2017 21:23 - CONCLUSION: No acute intracranial abnormality Jaden Clark MD Objective Remarks GENERAL: Morbidly obese elderly female sedated and intubated. SKIN: Warm and dry. HEAD: Normocephalic. EYES: No scleral icterus. No injection or drainage. NECK: Supple, trachea midline. No JVD or lymphadenopathy. CARDIOVASCULAR: Regular rate and rhythm without murmurs, gallops, or rubs. RESPIRATORY: Orally intubated on mechanical ventilation, Breath sounds equal bilaterally. Scattered rhonchi, no wheezing GASTROINTESTINAL: Abdomen soft, non-tender, nondistended. MUSCULOSKELETAL: No cyanosis, or edema. BACK: Nontender without obvious deformity. NEURO EXAM: Mental Status: The patient is sedated and intubated. Cranial Nerves: Pupils are round, reactive to light. A/P Assessment and Plan Respiratory failure Altered mental status UTI Diabetes mellitus RADHA Anemia Hypothyroidism History of hypertension Seizure disorder Neuropathy Plan Neuro: Monitor neuro status. On Fentanyl/Versed drips for sedation. Daily sedation vacation. Precedex drip to facilitate with weaning trials. On Keppra 500mg Q12 Pulm: Continue with vent support keep sat >92% Bronchodilators, ICU vent bundle. SBT daily as lisa HC 50mg Q12. Check CXR CV: Monitor HR and BP keep MAP>65mmHg On Amiodarone 200mg BID : Monitor renal function, electrolytes replacement as needed. Cr: 1.93 today from 1.85, UOP: 1225ml in 24 hrs GI: On Glucerna 1.5@65ml/hr, On pericolace, Lactulose for bowel regimen ID: Continue Imipenem, Azithromycin monitor for signs of infections ( Fever, WBC ) Urine cx: 07/11: Kleb ESBL, Citrobacter Heme: Monitor CBC, on Ferrous sulfate and Folic acid Check Hep PLT ab r/o HIT Endo: SSI for glycemic control GI prophylaxis- on Pepcid DVT prophylaxis- Heparin SQ Level 3 Brittani Mercado MD Jul 15, 2017 08:41
--- NOTE | 2017-07-15 09:10 | RADRPT ---
EXAM DATE/TIME: 07/15/2017 08:49 [facility] COMPARISON: No previous studies available for comparison. INDICATIONS : Ventilator dependent respiratory failure. MEDICAL HISTORY : None. SURGICAL HISTORY : None. ENCOUNTER: Subsequent ACUITY: 3 days PAIN SCORE: Non-responsive. LOCATION: Bilateral chest FINDINGS: Hazy infiltrates and small pleural effusions are again seen bilaterally. No pneumothorax. Mild cardiomegaly unchanged. Endotracheal tube tip is at the melo and needs to be pulled back approximately 2 cm. Nasogastric tu be courses into the stomach. CONCLUSION: 1. Endotracheal tube tip at the melo. 2. No significant change hazy parenchymal consolidation and small effusions on both sides. Charlie Norris MD on July 15, 2017 at 9:06 Board Certified Radiologist. This report was verified electronically.
[2017-07-15 12:55] LABS: HEMATOCRIT 25.6 % (35.0-46.0); HEMOGLOBIN 8.4 GM/DL (11.6-15.3)
[2017-07-15] MEDS: AZITHROMYCIN INJ 500 MG in SODIUM CHLOR 0.9% 250 ML INJ 250 ML IV SCH (21:21)
[2017-07-15] MEDS: AMITRIPTYLINE HCL 10 MG TAB PO SCH (21:23)
[2017-07-16] VITALS (18 sets, daily range): BP systolic 109–169; BP diastolic 54–66; PULSE 69–96; RESP 14–21; TEMP 97.7–98.7; O2SAT 95–100
[2017-07-16] MEDS: INSULIN NovoLIN REGULAR SUPPLEMENTAL SCALE SQ SCH ×4 (03:38→21:31)
[2017-07-16] MEDS: IMIPENEM/CILASTATIN INJ 250 MG in SODIUM CHLORIDE 0.9% INJ 100 ML IV SCH ×4 (03:38→18:00)
[2017-07-16] MEDS: fentaNYL DRIP 250 ML IV PRN (04:20)
[2017-07-16] MEDS: LEVOTHYROXINE SODIUM 25 MCG TAB PO SCH (05:39)
[2017-07-16] MEDS: HEPARIN SODIUM - SQ 10,000 UNITS/ML VIAL SQ SCH ×3 (05:39→20:37)
[2017-07-16 06:12] LABS: BICARBONATE 26.3 MEQ/L (21.0-32.0); CALCIUM 8.8 MG/DL (8.5-10.1); CREATININE 1.64 MG/DL (0.50-1.00)
[2017-07-16 06:13] LABS: RANDOM VANCOMYCIN 19.2 COMMENT
--- NOTE | 2017-07-16 08:15 | HHI.CCPN ---
Subjective Remarks/Hospital Course 07/11: 77-year-old morbidly obese female patient sent in from [facility], due to increased lethargy for the last 2 days, hypoglycemia early in the day with sugars of 44, given glucagon, chest x-ray showing a pneumonia according to facility staff, EMS noted the patient was fairly disoriented, GCS 6, and started bag valve masking her because of respiratory distress and hypoxia with sats in the 87% range despite oxygenation. Patient was brought in bag-valve- mask in progress and was immediately intubated in the emergency department by ED attending. 07/12: Sedated, orally intubated on mechanical ventilation. 07/13 Patient is sedated with Fentanyl and intubated. Afebrile. 07/14 No events overnight, Sedated with Fentanyl and Versed. Afebrile. Failed CPAP trials yesterday. 07/15 No events overnight. Sedated and intubated. ABG on CPAP yesterday showed resp acidosis with PH 7.22 and CO2: 58 07/16 Patient remains sedated and intubated Objective Vital Signs Date Time Temp Pulse Resp B/P (MAP) Pulse Ox O2 Delivery O2 Flow Rate FiO2 07/16/17 06:00 76 07/16/17 04:38 100 40 07/16/17 04:00 98.7 16 135/56 (82) Intake and Output 07/16/17 07/16/17 07/17/17 08:00 16:00 00:00 Intake Total 649.5 ml Output Total 1050 ml Balance -400.5 ml Result Diagram: 07/15/17 1240 07/16/17 0445 Other Results Laboratory Tests Test 07/15/17 12:40 07/16/17 04:45 Hemoglobin 8.4 GM/DL Hematocrit 25.6 % Blood Urea Nitrogen 77 MG/DL Creatinine 1.64 MG/DL Random Glucose 179 MG/DL Calcium Level 8.8 MG/DL Sodium Level 143 MEQ/L Potassium Level 4.6 MEQ/L Chloride Level 108 MEQ/L Carbon Dioxide Level 26.3 MEQ/L Anion Gap 9 MEQ/L Estimat Glomerular Filtration Rate 31 ML/MIN Random Vancomycin Level 19.2 COMMENT Imaging Last Impressions Chest X-Ray 07/15/17 0000 Signed Impressions: Service Date/Time: Saturday, July 15, 2017 08:49 - CONCLUSION: 1. Endotracheal tube tip at the melo. 2. No significant change hazy parenchymal consolidation and small effusions on both sides. Charlie Norris MD Head CT 07/11/17 7947 Signed Impressions: Service Date/Time: Tuesday, July 11, 2017 21:23 - CONCLUSION: No acute intracranial abnormality Jaden Clark MD Objective Remarks GENERAL: Morbidly obese elderly female sedated and intubated. SKIN: Warm and dry. HEAD: Normocephalic. EYES: No scleral icterus. No injection or drainage. NECK: Supple, trachea midline. No JVD or lymphadenopathy. CARDIOVASCULAR: Regular rate and rhythm without murmurs, gallops, or rubs. RESPIRATORY: Orally intubated on mechanical ventilation, Breath sounds equal bilaterally. Scattered rhonchi, no wheezing GASTROINTESTINAL: Abdomen soft, non-tender, nondistended. MUSCULOSKELETAL: No cyanosis, or edema. BACK: Nontender without obvious deformity. NEURO EXAM: Mental Status: The patient is sedated and intubated. Cranial Nerves: Pupils are round, reactive to light. A/P Assessment and Plan Respiratory failure Altered mental status UTI Diabetes mellitus RADHA Anemia Hypothyroidism History of hypertension Seizure disorder Neuropathy Plan Neuro: Monitor neuro status. On Fentanyl drip for sedation. Daily sedation vacation. Precedex drip to facilitate with weaning trials. On Keppra 500mg Q12 Pulm: Continue with vent support keep sat >92% Bronchodilators, ICU vent bundle. SBT daily as lisa HC 50mg Q12. CV: Monitor HR and BP keep MAP>65mmHg On Amiodarone 200mg BID : Monitor renal function, electrolytes replacement as needed. Renal function is improving with Cr: 1.64 from 1.93 GI: On Glucerna 1.5@65ml/hr, On roly Colace, Lactulose for bowel regimen ID: Continue Imipenem, Azithromycin monitor for signs of infections ( Fever, WBC ) Urine cx: 07/11: Kleb ESBL, Citrobacter Heme: Monitor CBC, on Ferrous sulfate and Folic acid Hep PLT ab r/o HIT-pending Endo: SSI for glycemic control GI prophylaxis- on Pepcid DVT prophylaxis- Heparin SQ Level 3 Brittani Mercado MD Jul 16, 2017 08:15
[2017-07-16] MEDS: LACTULOSE SYRUP 20 GM/30 ML CUP PO SCH ×3 (09:00→18:00)
[2017-07-16] MEDS: MULTIVITAMIN TAB PO SCH (10:41)
[2017-07-16] MEDS: HYDROCORTISONE SOD SUCCINATE 100 MG VIAL IV PUSH SCH ×2 (10:42→20:36)
[2017-07-16] MEDS: DOCUSATE SODIUM 50 MG/SENNA 8.6 MG TAB PO SCH ×2 (10:42→20:36)
[2017-07-16] MEDS: GABAPENTIN 300 MG CAP PO SCH (10:42)
[2017-07-16] MEDS: ZINC SULFATE 220 MG CAP PO SCH (10:42)
[2017-07-16] MEDS: ASCORBIC ACID 500 MG TAB PO SCH ×2 (10:42→20:36)
[2017-07-16] MEDS: FOLIC ACID 1 MG TAB PO SCH (10:43)
[2017-07-16] MEDS: levETIRAcetam 500 MG/5 ML UDC NG SCH ×2 (10:43→20:36)
[2017-07-16] MEDS: AMIODARONE 200 MG TAB PO SCH ×2 (10:43→20:36)
[2017-07-16] MEDS: busPIRone HCL 10 MG TAB PO SCH ×2 (10:43→20:36)
[2017-07-16] MEDS: FAMOTIDINE 20 MG/2 ML VIAL IV PUSH SCH ×2 (10:43→20:35)
[2017-07-16] MEDS: FERROUS SULFATE 300 MG /5ML UDC PO SCH ×2 (10:43→20:36)
[2017-07-16] MEDS: SODIUM CHLORIDE 0.9% FLUSH 10 ML FLUSH IV FLUSH SCH ×2 (10:44→20:35)
[2017-07-16] MEDS: COLLAGENASE OINT 30 GM TUBE TOPICAL SCH (10:45)
[2017-07-16] MEDS: ARTIFICIAL TEARS OPTH SOLN 15 ML BTL EACH EYE SCH ×3 (10:45→17:23)
[2017-07-16 11:58] LABS: AUTOMATED NEUTROPHIL # 6.5 TH/MM3 (1.8-7.7); BASOPHIL % 0.1 % (0.0-2.0); EOSINOPHIL # 0.2 TH/MM3 (0-0.4); EOSINOPHIL % 2.9 % (0.0-4.0); HEMATOCRIT 25.2 % (35.0-46.0); LYMPH % 5.9 % (9.0-44.0); LYMPHOCYTE # 0.5 TH/MM3 (1.0-4.8); MEAN CELL VOLUME 95.9 FL (80.0-100.0); MEAN CORPUSCULAR HEMOGLOBIN 30.5 PG (27.0-34.0); MEAN CORPUSCULAR HGB CONC 31.8 % (32.0-36.0); MEAN PLATELET VOLUME 8.1 FL (7.0-11.0); MONO % 6.5 % (0.0-8.0); MONOCYTE # 0.5 TH/MM3 (0-0.9); NEUT % 84.6 % (16.0-70.0); PLATELET COUNT 98 TH/MM3 (150-450); RED BLOOD COUNT 2.63 MIL/MM3 (4.00-5.30); RED CELL DISTRIBUTION WIDTH 20.6 % (11.6-17.2); WHITE BLOOD COUNT 7.7 TH/MM3 (4.0-11.0)
[2017-07-16 12:47] LABS: BANDS 1 % (0-6); BASOPHILS 1 % (0-2); LYMPHOCYTES 5 % (9-44); MONOCYTES 4 % (0-8); NEUTROPHIL # MANUAL DIFF 6.8 TH/MM3 (1.8-7.7); POLYS (SEG NEUTROPHILS) 87 % (16-70)
[2017-07-16 15:48] LABS: HEPARIN INDUCED PLATELET AB NEGATIVE (NEGATIVE)
[2017-07-16] MEDS: AZITHROMYCIN INJ 500 MG in SODIUM CHLOR 0.9% 250 ML INJ 250 ML IV SCH (20:35)
[2017-07-16] MEDS: AMITRIPTYLINE HCL 10 MG TAB PO SCH (20:36)
[2017-07-17] VITALS (19 sets, daily range): BP systolic 101–108; BP diastolic 48–52; PULSE 57–76; RESP 16; TEMP 97.3–98.6; O2SAT 97–100
[2017-07-17] MEDS: IMIPENEM/CILASTATIN INJ 250 MG in SODIUM CHLORIDE 0.9% INJ 100 ML IV SCH ×3 (01:32→17:17)
[2017-07-17] MEDS: INSULIN NovoLIN REGULAR SUPPLEMENTAL SCALE SQ SCH ×4 (03:45→22:02)
[2017-07-17] MEDS: HEPARIN SODIUM - SQ 10,000 UNITS/ML VIAL SQ SCH ×3 (03:45→20:14)
[2017-07-17] MEDS: CHLORHEXIDINE GLUCONATE 2 % 1 PACK (2 CLOTHS) TOP SCH (03:45)
[2017-07-17] MEDS: LEVOTHYROXINE SODIUM 25 MCG TAB PO SCH (06:02)
[2017-07-17] MEDS: fentaNYL DRIP 250 ML IV PRN (06:03)
[2017-07-17] MEDS: LACTULOSE SYRUP 20 GM/30 ML CUP PO SCH ×3 (09:00→17:18)
--- NOTE | 2017-07-17 09:03 | HHI.CCPN ---
Subjective Remarks/Hospital Course 07/11: 77-year-old morbidly obese [facility] due to increased lethargy for the last 2 days, hypoglycemia early in the day with sugars of 44, given glucagon, chest x-ray showing a pneumonia according to facility staff, EMS noted the patient was fairly disoriented, GCS 6, and started bag valve masking her because of respiratory distress and hypoxia with sats in the 87% range despite oxygenation. Patient was brought in bag-valve- mask in progress and was immediately intubated in the emergency department by ED attending. 07/12: Sedated, orally intubated on mechanical ventilation. 07/13 Patient is sedated with Fentanyl and intubated. Afebrile. 07/14 No events overnight, Sedated with Fentanyl and Versed. Afebrile. Failed CPAP trials yesterday. 07/15 No events overnight. Sedated and intubated. ABG on CPAP yesterday showed resp acidosis with PH 7.22 and CO2: 58 07/16 Patient remains sedated and intubated 07/17. No events overnight. Remains sedated and intubated Objective Vital Signs Date Time Temp Pulse Resp B/P (MAP) Pulse Ox O2 Delivery O2 Flow Rate FiO2 07/17/17 06:00 76 07/17/17 05:00 100 40 07/17/17 04:00 98.6 16 104/52 (69) Intake and Output 07/17/17 07/17/17 07/18/17 08:00 16:00 00:00 Intake Total 1046.5 ml Output Total 800 ml Balance 246.5 ml Result Diagram: 07/16/17 1132 07/16/17 0445 Other Results Laboratory Tests Test 07/16/17 11:32 White Blood Count 7.7 TH/MM3 Red Blood Count 2.63 MIL/MM3 Hemoglobin 8.0 GM/DL Hematocrit 25.2 % Mean Corpuscular Volume 95.9 FL Mean Corpuscular Hemoglobin 30.5 PG Mean Corpuscular Hemoglobin Concent 31.8 % Red Cell Distribution Width 20.6 % Platelet Count 98 TH/MM3 Mean Platelet Volume 8.1 FL Neutrophils (%) (Auto) 84.6 % Lymphocytes (%) (Auto) 5.9 % Monocytes (%) (Auto) 6.5 % Eosinophils (%) (Auto) 2.9 % Basophils (%) (Auto) 0.1 % Neutrophils # (Auto) 6.5 TH/MM3 Lymphocytes # (Auto) 0.5 TH/MM3 Monocytes # (Auto) 0.5 TH/MM3 Eosinophils # (Auto) 0.2 TH/MM3 Basophils # (Auto) 0.0 TH/MM3 CBC Comment AUTO DIFF Differential Total Cells Counted 100 Neutrophils % (Manual) 87 % Band Neutrophils % 1 % Lymphocytes % 5 % Monocytes % 4 % Eosinophils % 2 % Basophils % 1 % Neutrophils # (Manual) 6.8 TH/MM3 Differential Comment FINAL DIFF MANUAL Platelet Estimate LOW Platelet Morphology Comment NORMAL Imaging Last Impressions Chest X-Ray 07/15/17 0000 Signed Impressions: Service Date/Time: Saturday, July 15, 2017 08:49 - CONCLUSION: 1. Endotracheal tube tip at the melo. 2. No significant change hazy parenchymal consolidation and small effusions on both sides. Charlie Norris MD Head CT 07/11/17 1827 Signed Impressions: Service Date/Time: Tuesday, July 11, 2017 21:23 - CONCLUSION: No acute intracranial abnormality Jaden Clark MD Objective Remarks GENERAL: Morbidly obese elderly female sedated and intubated. SKIN: Warm and dry. HEAD: Normocephalic. EYES: No scleral icterus. No injection or drainage. NECK: Supple, trachea midline. No JVD or lymphadenopathy. CARDIOVASCULAR: Regular rate and rhythm without murmurs, gallops, or rubs. RESPIRATORY: Orally intubated on mechanical ventilation, Breath sounds equal bilaterally. Scattered rhonchi, no wheezing GASTROINTESTINAL: Abdomen soft, non-tender, nondistended. MUSCULOSKELETAL: No cyanosis, or edema. BACK: Nontender without obvious deformity. NEURO EXAM: Mental Status: The patient is sedated and intubated. Cranial Nerves: Pupils are round, reactive to light. A/P Assessment and Plan Respiratory failure Altered mental status UTI Diabetes mellitus RADHA Anemia Hypothyroidism History of hypertension Seizure disorder Neuropathy Plan Neuro: Monitor neuro status. On Fentanyl drip for sedation. Daily sedation vacation. Precedex drip to facilitate with weaning trials. On Keppra 500mg Q12 Pulm: Continue with vent support keep sat >92% Bronchodilators, ICU vent bundle. SBT daily as lisa Decrease HC 25mg Q12. CV: Monitor HR and BP keep MAP>65mmHg On Amiodarone 200mg BID : Monitor renal function, electrolytes replacement as needed. Follow up on BMP GI: On Glucerna 1.5@65ml/hr, On roly Colace, Lactulose for bowel regimen ID: Continue Imipenem, Azithromycin monitor for signs of infections ( Fever, WBC ) Urine cx: 07/11: Kleb ESBL, Citrobacter. Repeat UA with cx if indicated Heme: Monitor CBC, on Ferrous sulfate and Folic acid Hep PLT ab r/o HIT-negative Endo: SSI for glycemic control GI prophylaxis- on Pepcid DVT prophylaxis- Heparin SQ Follow up on labs Level 3 Brittani Mercado MD Jul 17, 2017 09:02
[2017-07-17 09:07] LABS: AUTOMATED NEUTROPHIL # 5.1 TH/MM3 (1.8-7.7); BASOPHIL % 0.1 % (0.0-2.0); EOSINOPHIL # 0.1 TH/MM3 (0-0.4); EOSINOPHIL % 1.2 % (0.0-4.0); HEMATOCRIT 23.8 % (35.0-46.0); HEMOGLOBIN 7.7 GM/DL (11.6-15.3); LYMPH % 6.7 % (9.0-44.0); LYMPHOCYTE # 0.4 TH/MM3 (1.0-4.8); MEAN CELL VOLUME 96.3 FL (80.0-100.0); MEAN CORPUSCULAR HEMOGLOBIN 31.1 PG (27.0-34.0); MEAN CORPUSCULAR HGB CONC 32.3 % (32.0-36.0); MEAN PLATELET VOLUME 8.6 FL (7.0-11.0); MONO % 5.3 % (0.0-8.0); MONOCYTE # 0.3 TH/MM3 (0-0.9); NEUT % 86.7 % (16.0-70.0); PLATELET COUNT 91 TH/MM3 (150-450); RED BLOOD COUNT 2.47 MIL/MM3 (4.00-5.30); RED CELL DISTRIBUTION WIDTH 20.9 % (11.6-17.2); WHITE BLOOD COUNT 5.9 TH/MM3 (4.0-11.0)
[2017-07-17] MEDS: SODIUM CHLORIDE 0.9% FLUSH 10 ML FLUSH IV FLUSH SCH ×2 (09:49→20:11)
[2017-07-17] MEDS: busPIRone HCL 10 MG TAB PO SCH ×2 (09:50→20:15)
[2017-07-17] MEDS: levETIRAcetam 500 MG/5 ML UDC NG SCH ×2 (09:50→20:14)
[2017-07-17] MEDS: ZINC SULFATE 220 MG CAP PO SCH (09:50)
[2017-07-17] MEDS: ASCORBIC ACID 500 MG TAB PO SCH ×2 (09:50→20:15)
[2017-07-17] MEDS: FOLIC ACID 1 MG TAB PO SCH (09:50)
[2017-07-17] MEDS: AMIODARONE 200 MG TAB PO SCH ×2 (09:50→20:15)
[2017-07-17] MEDS: FERROUS SULFATE 300 MG /5ML UDC PO SCH ×2 (09:50→20:15)
[2017-07-17] MEDS: FAMOTIDINE 20 MG/2 ML VIAL IV PUSH SCH ×2 (09:50→20:14)
[2017-07-17] MEDS: DOCUSATE SODIUM 50 MG/SENNA 8.6 MG TAB PO SCH ×2 (09:50→20:15)
[2017-07-17] MEDS: MULTIVITAMIN TAB PO SCH (09:51)
[2017-07-17] MEDS: ARTIFICIAL TEARS OPTH SOLN 15 ML BTL EACH EYE SCH ×3 (09:51→17:18)
[2017-07-17] MEDS: GABAPENTIN 300 MG CAP PO SCH (09:51)
[2017-07-17] MEDS: COLLAGENASE OINT 30 GM TUBE TOPICAL SCH (09:51)
[2017-07-17 09:54] LABS: BICARBONATE 28.8 MEQ/L (21.0-32.0); CALCIUM 9.1 MG/DL (8.5-10.1); CREATININE 1.4 MG/DL (0.50-1.00)
[2017-07-17 09:55] LABS: BANDS 4 % (0-6); BASOPHILS 1 % (0-2); LYMPHOCYTES 4 % (9-44); MONOCYTES 5 % (0-8); MYELOCYTES 1 % (0-0); NEUTROPHIL # MANUAL DIFF 5.3 TH/MM3 (1.8-7.7); POLYS (SEG NEUTROPHILS) 84 % (16-70)
[2017-07-17 09:56] LABS: TOXIC GRANULATION 1+ (NORMAL)
[2017-07-17 09:57] LABS: RANDOM VANCOMYCIN 15.9 COMMENT
[2017-07-17] MEDS ORDERED: DEXMEDETOMIDINE IV PRN (14:00)
[2017-07-17] MEDS ORDERED: SODIUM CHLORIDE 0.9% IV PRN (14:00)
[2017-07-17] MEDS: LORazepam 2 MG/ML VIAL IV PUSH PRN (17:17)
[2017-07-17] MEDS: AZITHROMYCIN INJ 500 MG in SODIUM CHLOR 0.9% 250 ML INJ 250 ML IV SCH (20:10)
[2017-07-17] MEDS: HYDROCORTISONE SOD SUCCINATE 100 MG VIAL IV PUSH SCH (20:14)
[2017-07-17] MEDS: AMITRIPTYLINE HCL 10 MG TAB PO SCH (20:15)
[2017-07-18] VITALS (14 sets, daily range): BP systolic 135–168; BP diastolic 62–74; PULSE 65–105; RESP 16–19; TEMP 97.4–98.5; O2SAT 95–100
[2017-07-18] MEDS: IMIPENEM/CILASTATIN INJ 250 MG in SODIUM CHLORIDE 0.9% INJ 100 ML IV SCH ×3 (02:43→18:17)
[2017-07-18] MEDS: CHLORHEXIDINE GLUCONATE 2 % 1 PACK (2 CLOTHS) TOP SCH (04:00)
[2017-07-18] MEDS: INSULIN NovoLIN REGULAR SUPPLEMENTAL SCALE SQ SCH ×4 (04:11→21:20)
[2017-07-18] MEDS: HEPARIN SODIUM - SQ 10,000 UNITS/ML VIAL SQ SCH ×3 (04:12→21:19)
[2017-07-18] MEDS: LEVOTHYROXINE SODIUM 25 MCG TAB PO SCH (05:24)
[2017-07-18] MEDS: ALPRAZolam 0.5 MG TAB PO PRN ×2 (05:24→15:40)
[2017-07-18 07:10] LABS: BACTERIA, URINE MOD /hpf; BILIRUBIN, URINE NEG (NEG); BLOOD, URINE SMALL (NEG); GLUCOSE,URINE NEG (NEG); KETONE, URINE NEG (NEG); MUCUS URINE FEW /lpf (OCC); NITRITE,URINE NEG (NEG); PH, URINE 5.5 (5.0-8.5); SQUAMOUS EPITHELIAL CELL URINE 12 /hpf (0-5); TRANSITIONAL EPI CELLS, URINE 2 /hpf; URINE COLOR YELLOW (YELLW/STRAW); URINE LEUKOCYTE ESTERASE LARGE (NEG); WHITE BLOOD CELL CLUMPS MANY
[2017-07-18 07:15] LABS: AUTOMATED NEUTROPHIL # 4.8 TH/MM3 (1.8-7.7); BASOPHIL % 0.3 % (0.0-2.0); EOSINOPHIL # 0.2 TH/MM3 (0-0.4); EOSINOPHIL % 3.4 % (0.0-4.0); HEMOGLOBIN 8.2 GM/DL (11.6-15.3); LYMPH % 7.8 % (9.0-44.0); LYMPHOCYTE # 0.4 TH/MM3 (1.0-4.8); MEAN CELL VOLUME 97.3 FL (80.0-100.0); MEAN CORPUSCULAR HEMOGLOBIN 30.9 PG (27.0-34.0); MEAN CORPUSCULAR HGB CONC 31.7 % (32.0-36.0); MONO % 5.4 % (0.0-8.0); MONOCYTE # 0.3 TH/MM3 (0-0.9); NEUT % 83.1 % (16.0-70.0); PLATELET COUNT 107 TH/MM3 (150-450); RED BLOOD COUNT 2.67 MIL/MM3 (4.00-5.30); RED CELL DISTRIBUTION WIDTH 20.8 % (11.6-17.2); WHITE BLOOD COUNT 5.7 TH/MM3 (4.0-11.0)
[2017-07-18 07:38] LABS: CALCIUM 9.4 MG/DL (8.5-10.1); CREATININE 1.34 MG/DL (0.50-1.00)
[2017-07-18] MEDS: FREE WATER G-TUBE SCH ×3 (08:45→21:20)
--- NOTE | 2017-07-18 08:47 | HHI.CCPN ---
Subjective Remarks/Hospital Course 07/11: 77-year-old morbidly obese female patient sent in from [facility], due to increased lethargy for the last 2 days, hypoglycemia early in the day with sugars of 44, given glucagon, chest x-ray showing a pneumonia according to facility staff, EMS noted the patient was fairly disoriented, GCS 6, and started bag valve masking her because of respiratory distress and hypoxia with sats in the 87% range despite oxygenation. Patient was brought in bag-valve- mask in progress and was immediately intubated in the emergency department by ED attending. 07/12: Sedated, orally intubated on mechanical ventilation. 07/13 Patient is sedated with Fentanyl and intubated. Afebrile. 07/14 No events overnight, Sedated with Fentanyl and Versed. Afebrile. Failed CPAP trials yesterday. 07/15 No events overnight. Sedated and intubated. ABG on CPAP yesterday showed resp acidosis with PH 7.22 and CO2: 58 07/16 Patient remains sedated and intubated 07/17. No events overnight. Remains sedated and intubated 07/18 Patient remains intubated off sedation. Afebrile. Objective Vital Signs Date Time Temp Pulse Resp B/P (MAP) Pulse Ox O2 Delivery O2 Flow Rate FiO2 07/18/17 06:00 67 07/18/17 05:15 100 40 07/18/17 04:00 98.4 16 151/67 (95) Intake and Output 07/18/17 07/18/17 07/19/17 08:00 16:00 00:00 Intake Total 880 ml Output Total 600 ml Balance 280 ml Result Diagram: 07/18/17 0516 07/18/17 0516 Other Results Laboratory Tests Test 07/18/17 05:00 07/18/17 05:16 Urine Color YELLOW Urine Turbidity CLOUDY Urine pH 5.5 Urine Specific [place] 1.018 Urine Protein 30 mg/dL Urine Glucose (UA) NEG mg/dL Urine Ketones NEG mg/dL Urine Occult Blood SMALL Urine Nitrite NEG Urine Bilirubin NEG Urine Urobilinogen 2.0 MG/DL Urine Leukocyte Esterase LARGE Urine RBC 46 /hpf Urine WBC /hpf Urine WBC Clumps MANY Urine Squamous Epithelial Cells 12 /hpf Urine Transitional Epithelial Cells 2 /hpf Urine Bacteria MOD /hpf Urine Mucus FEW /lpf Urine Yeast with Hyphae MANY Urine Yeast (Budding) MANY Microscopic Urinalysis Comment CATH-CULTURE IND White Blood Count 5.7 TH/MM3 Red Blood Count 2.67 MIL/MM3 Hemoglobin 8.2 GM/DL Hematocrit 26.0 % Mean Corpuscular Volume 97.3 FL Mean Corpuscular Hemoglobin 30.9 PG Mean Corpuscular Hemoglobin Concent 31.7 % Red Cell Distribution Width 20.8 % Platelet Count 107 TH/MM3 Mean Platelet Volume 9.0 FL Neutrophils (%) (Auto) 83.1 % Lymphocytes (%) (Auto) 7.8 % Monocytes (%) (Auto) 5.4 % Eosinophils (%) (Auto) 3.4 % Basophils (%) (Auto) 0.3 % Neutrophils # (Auto) 4.8 TH/MM3 Lymphocytes # (Auto) 0.4 TH/MM3 Monocytes # (Auto) 0.3 TH/MM3 Eosinophils # (Auto) 0.2 TH/MM3 Basophils # (Auto) 0.0 TH/MM3 CBC Comment DIFF FINAL Differential Comment Blood Urea Nitrogen 68 MG/DL Creatinine 1.34 MG/DL Random Glucose 190 MG/DL Calcium Level 9.4 MG/DL Sodium Level 147 MEQ/L Potassium Level 4.8 MEQ/L Chloride Level 112 MEQ/L Carbon Dioxide Level 30.0 MEQ/L Anion Gap 5 MEQ/L Estimat Glomerular Filtration Rate 39 ML/MIN Imaging Last Impressions Chest X-Ray 07/15/17 0000 Signed Impressions: Service Date/Time: Saturday, July 15, 2017 08:49 - CONCLUSION: 1. Endotracheal tube tip at the melo. 2. No significant change hazy parenchymal consolidation and small effusions on both sides. Charlie Norris MD Head CT 07/11/17 1827 Signed Impressions: Service Date/Time: Tuesday, July 11, 2017 21:23 - CONCLUSION: No acute intracranial abnormality Jaden Clark MD Objective Remarks GENERAL: Morbidly obese elderly female intubated. SKIN: Warm and dry. HEAD: Normocephalic. EYES: No scleral icterus. No injection or drainage. NECK: Supple, trachea midline. No JVD or lymphadenopathy. CARDIOVASCULAR: Regular rate and rhythm without murmurs, gallops, or rubs. RESPIRATORY: Orally intubated on mechanical ventilation, Breath sounds equal bilaterally. GASTROINTESTINAL: Abdomen soft, non-tender, nondistended. MUSCULOSKELETAL: No cyanosis, or edema. BACK: Nontender without obvious deformity. NEURO EXAM: Mental Status: Intubated A/P Assessment and Plan Respiratory failure Altered mental status UTI Diabetes mellitus RAHDA Anemia Hypothyroidism History of hypertension Seizure disorder Neuropathy Plan Neuro: Monitor neuro status. Off sedation Precedex drip to facilitate with weaning trials. On Keppra 500mg Q12 Pulm: Continue with vent support keep sat >92% Bronchodilators, ICU vent bundle. SBT daily as lisa HC 25mg Q12. CV: Place on Hydralazine 50mg Q8-Monitor HR and BP keep MAP>65mmHg On Amiodarone 200mg BID : Monitor renal function, electrolytes replacement as needed. Renal function is improving with Cr: 1.[address] Free water 250ml Q8 GI: On Glucerna 1.5@65ml/hr, On roly Colace, Lactulose for bowel regimen ID: Continue Imipenem, monitor for signs of infections ( Fever, WBC) d/c Azithromycin Urine cx: 07/11: Kleb ESBL, Citrobacter. Follow up on repeat urine cx Heme: Monitor CBC, on Ferrous sulfate and Folic acid Hep PLT ab -negative Endo: SSI for glycemic control GI prophylaxis- on Pepcid DVT prophylaxis- Heparin SQ Level 3 Brittani Mercado MD Jul 18, 2017 08:47
[2017-07-18] MEDS: LACTULOSE SYRUP 20 GM/30 ML CUP PO SCH ×3 (09:16→18:00)
[2017-07-18] MEDS: FERROUS SULFATE 300 MG /5ML UDC PO SCH ×2 (09:16→21:26)
[2017-07-18] MEDS: levETIRAcetam 500 MG/5 ML UDC NG SCH ×2 (09:16→21:19)
[2017-07-18] MEDS: busPIRone HCL 10 MG TAB PO SCH ×2 (09:17→21:19)
[2017-07-18] MEDS: FOLIC ACID 1 MG TAB PO SCH (09:17)
[2017-07-18] MEDS: GABAPENTIN 300 MG CAP PO SCH (09:17)
[2017-07-18] MEDS: ASCORBIC ACID 500 MG TAB PO SCH ×2 (09:17→21:19)
[2017-07-18] MEDS: DOCUSATE SODIUM 50 MG/SENNA 8.6 MG TAB PO SCH ×2 (09:17→21:19)
[2017-07-18] MEDS: MULTIVITAMIN TAB PO SCH (09:17)
[2017-07-18] MEDS: AMIODARONE 200 MG TAB PO SCH ×2 (09:17→21:20)
[2017-07-18] MEDS: ZINC SULFATE 220 MG CAP PO SCH (09:17)
[2017-07-18] MEDS: HYDROCORTISONE SOD SUCCINATE 100 MG VIAL IV PUSH SCH ×2 (09:17→21:18)
[2017-07-18] MEDS: SODIUM CHLORIDE 0.9% FLUSH 10 ML FLUSH IV FLUSH SCH ×2 (09:19→21:21)
[2017-07-18] MEDS: FAMOTIDINE 20 MG/2 ML VIAL IV PUSH SCH ×2 (09:19→21:19)
[2017-07-18] MEDS: hydrALAZINE HCL 20 MG/ML VIAL IV PUSH PRN (09:20)
[2017-07-18] MEDS: ARTIFICIAL TEARS OPTH SOLN 15 ML BTL EACH EYE SCH ×3 (09:21→18:17)
[2017-07-18] MEDS: COLLAGENASE OINT 30 GM TUBE TOPICAL SCH (09:21)
[2017-07-18] MEDS: hydrALAZINE HCL 50 MG TAB PO SCH ×3 (09:32→21:18)
[2017-07-18] MEDS ORDERED: RESP: ALBUTEROL 2.5 MG/IPRATROPIUM 0.5 MG NEB (PRN) NEB (14:45)
[2017-07-18] MEDS: RESP: ALBUTEROL 2.5 MG/IPRATROPIUM 0.5 MG NEB (SCH) NEB ×2 (16:00→22:29)
[2017-07-18] MEDS: AMITRIPTYLINE HCL 10 MG TAB PO SCH (21:19)
[2017-07-18] MEDS ORDERED: RESP: ACETYLCYSTEINE 20% 4 ML NEB NEB ONE (23:45)
[2017-07-19] VITALS (17 sets, daily range): BP systolic 113–162; BP diastolic 70–95; PULSE 63–104; RESP 16–25; TEMP 96.4–98.9; O2SAT 91–100
[2017-07-19] MEDS ORDERED: RESP: ACETYLCYSTEINE 20% 4 ML NEB NEB PRN (00:30)
[2017-07-19] MEDS: IMIPENEM/CILASTATIN INJ 250 MG in SODIUM CHLORIDE 0.9% INJ 100 ML IV SCH ×3 (02:00→18:27)
[2017-07-19] MEDS: CHLORHEXIDINE GLUCONATE 2 % 1 PACK (2 CLOTHS) TOP SCH (04:00)
[2017-07-19] MEDS: INSULIN NovoLIN REGULAR SUPPLEMENTAL SCALE SQ SCH ×4 (04:00→19:47)
[2017-07-19] MEDS: RESP: ALBUTEROL 2.5 MG/IPRATROPIUM 0.5 MG NEB (SCH) NEB ×4 (04:19→20:54)
[2017-07-19] MEDS: hydrALAZINE HCL 50 MG TAB PO SCH ×3 (05:37→19:47)
[2017-07-19] MEDS: LEVOTHYROXINE SODIUM 25 MCG TAB PO SCH (05:37)
[2017-07-19] MEDS: HEPARIN SODIUM - SQ 10,000 UNITS/ML VIAL SQ SCH ×3 (05:37→19:41)
[2017-07-19] MEDS: FREE WATER G-TUBE SCH ×3 (05:37→16:25)
[2017-07-19] MEDS: hydrALAZINE HCL 20 MG/ML VIAL IV PUSH PRN (05:37)
--- NOTE | 2017-07-19 06:11 | RADRPT ---
EXAM DATE/TIME: 07/19/2017 04:24 [facility] COMPARISON: CHEST SINGLE AP, July 15, 2017, 8:49. INDICATIONS : Shortness of breath, possible pulmonary disease. MEDICAL HISTORY : None. SURGICAL HISTORY : None. ENCOUNTER: Subsequent ACUITY: 1 week PAIN SCORE: Non-responsive. LOCATION: Bilateral chest FINDINGS: Mild motion degradation of the image. Interval removal of endotracheal and gastric tubes. Persisten t patchy infiltrates in the left lower lung with loss of delineation of portions of the left hemidiap hragm. Hazy opacity in the right lower lung with new loss of delineation of lateral right hemidiaphr agm. The heart is enlarged. CONCLUSION: Persistent left lower lobe infiltrates and new opacity in the lower lateral right lung. Jasen Delvalle MD on July 19, 2017 at 6:08 Board Certified Radiologist. This report was verified electronically.
[2017-07-19 06:53] LABS: AUTOMATED NEUTROPHIL # 5.8 TH/MM3 (1.8-7.7); BASOPHIL % 0.3 % (0.0-2.0); EOSINOPHIL % 0.2 % (0.0-4.0); HEMATOCRIT 27.6 % (35.0-46.0); HEMOGLOBIN 8.5 GM/DL (11.6-15.3); LYMPHOCYTE # 0.2 TH/MM3 (1.0-4.8); MEAN CELL VOLUME 99.1 FL (80.0-100.0); MEAN CORPUSCULAR HEMOGLOBIN 30.5 PG (27.0-34.0); MEAN CORPUSCULAR HGB CONC 30.8 % (32.0-36.0); MEAN PLATELET VOLUME 8.9 FL (7.0-11.0); MONO % 2.1 % (0.0-8.0); MONOCYTE # 0.1 TH/MM3 (0-0.9); NEUT % 94.4 % (16.0-70.0); PLATELET COUNT 120 TH/MM3 (150-450); RED BLOOD COUNT 2.78 MIL/MM3 (4.00-5.30); RED CELL DISTRIBUTION WIDTH 21.4 % (11.6-17.2); WHITE BLOOD COUNT 6.2 TH/MM3 (4.0-11.0)
[2017-07-19 07:08] LABS: BICARBONATE 28.7 MEQ/L (21.0-32.0); CALCIUM 9.7 MG/DL (8.5-10.1); CREATININE 1.15 MG/DL (0.50-1.00)
--- NOTE | 2017-07-19 08:24 | HHI.CCPN ---
Subjective Remarks/Hospital Course 07/11: 77-year-old morbidly obese female patient sent in from [facility], due to increased lethargy for the last 2 days, hypoglycemia early in the day with sugars of 44, given glucagon, chest x-ray showing a pneumonia according to facility staff, EMS noted the patient was fairly disoriented, GCS 6, and started bag valve masking her because of respiratory distress and hypoxia with sats in the 87% range despite oxygenation. Patient was brought in bag-valve- mask in progress and was immediately intubated in the emergency department by ED attending. 07/12: Sedated, orally intubated on mechanical ventilation. 07/13 Patient is sedated with Fentanyl and intubated. Afebrile. 07/14 No events overnight, Sedated with Fentanyl and Versed. Afebrile. Failed CPAP trials yesterday. 07/15 No events overnight. Sedated and intubated. ABG on CPAP yesterday showed resp acidosis with PH 7.22 and CO2: 58 07/16 Patient remains sedated and intubated 07/17. No events overnight. Remains sedated and intubated 07/18 Patient remains intubated off sedation. Afebrile. 07/19 Patient s/p extubation yesterday on BIPAP overnight. Awake. ABG last night showed resp acidosis with PH: 7.24, pCO2: 66 Objective Vital Signs Date Time Temp Pulse Resp B/P (MAP) Pulse Ox O2 Delivery O2 Flow Rate FiO2 07/19/17 06:00 104 07/19/17 04:20 100 40 07/19/17 04:00 97.9 19 162/70 (100) 07/18/17 22:33 Nasal Cannula 2.00 Intake and Output 07/19/17 07/19/17 07/19/17 07:59 15:59 23:59 Intake Total 100 ml Balance 100 ml Result Diagram: 07/19/17 0450 07/19/17 0450 Other Results Laboratory Tests Test 07/18/17 14:25 07/19/17 03:30 07/19/17 04:50 Blood Gas Puncture Site RT RADIAL RT RADIAL Blood Gas Patient Temperature 98.6 98.6 Blood Gas HCO3 28 mmol/L 27 mmol/L Blood Gas Base Excess 3.8 mmol/L 0.8 mmol/L Blood Gas Oxygen Saturation 94 % 94 % Arterial Blood pH 7.39 7.24 Arterial Blood Partial Pressure CO2 48 mmHg 66 mmHg Arterial Blood Partial Pressure O2 94 mmHg 110 mmHg Arterial Blood Oxygen Content 13.3 Vol % 11.5 Vol % Arterial Blood Carboxyhemoglobin 2.1 % 2.1 % Arterial Blood Methemoglobin 1.0 % 1.3 % Blood Gas Hemoglobin 9.9 G/DL 8.5 G/DL Oxygen Delivery Device VENTILATOR BIPAP Blood Gas Ventilator Setting CPAP 10/+5 PEEP [id number]/[id number] Blood Gas Inspired Oxygen 40 % 40 % White Blood Count 6.2 TH/MM3 Red Blood Count 2.78 MIL/MM3 Hemoglobin 8.5 GM/DL Hematocrit 27.6 % Mean Corpuscular Volume 99.1 FL Mean Corpuscular Hemoglobin 30.5 PG Mean Corpuscular Hemoglobin Concent 30.8 % Red Cell Distribution Width 21.4 % Platelet Count 120 TH/MM3 Mean Platelet Volume 8.9 FL Neutrophils (%) (Auto) 94.4 % Lymphocytes (%) (Auto) 3.0 % Monocytes (%) (Auto) 2.1 % Eosinophils (%) (Auto) 0.2 % Basophils (%) (Auto) 0.3 % Neutrophils # (Auto) 5.8 TH/MM3 Lymphocytes # (Auto) 0.2 TH/MM3 Monocytes # (Auto) 0.1 TH/MM3 Eosinophils # (Auto) 0.0 TH/MM3 Basophils # (Auto) 0.0 TH/MM3 CBC Comment DIFF FINAL Differential Comment Blood Urea Nitrogen 67 MG/DL Creatinine 1.15 MG/DL Random Glucose 226 MG/DL Calcium Level 9.7 MG/DL Sodium Level 147 MEQ/L Potassium Level 4.8 MEQ/L Chloride Level 112 MEQ/L Carbon Dioxide Level 28.7 MEQ/L Anion Gap 6 MEQ/L Estimat Glomerular Filtration Rate 46 ML/MIN Imaging Last Impressions Chest X-Ray 07/15/17 0000 Signed Impressions: Service Date/Time: Saturday, July 15, 2017 08:49 - CONCLUSION: 1. Endotracheal tube tip at the melo. 2. No significant change hazy parenchymal consolidation and small effusions on both sides. Charlie Norris MD Head CT 07/11/17 1827 Signed Impressions: Service Date/Time: Tuesday, July 11, 2017 21:23 - CONCLUSION: No acute intracranial abnormality Jaden Clark MD Objective Remarks GENERAL: Morbidly obese elderly female intubated. SKIN: Warm and dry. HEAD: Normocephalic. EYES: No scleral icterus. No injection or drainage. NECK: Supple, trachea midline. No JVD or lymphadenopathy. CARDIOVASCULAR: Regular rate and rhythm without murmurs, gallops, or rubs. RESPIRATORY: Orally intubated on mechanical ventilation, Breath sounds equal bilaterally. GASTROINTESTINAL: Abdomen soft, non-tender, nondistended. MUSCULOSKELETAL: No cyanosis, or edema. BACK: Nontender without obvious deformity. NEURO EXAM: Mental Status: Intubated A/P Assessment and Plan Respiratory failure Altered mental status UTI Diabetes mellitus RADHA Anemia Hypothyroidism History of hypertension Seizure disorder Neuropathy Plan Neuro: Monitor neuro status. Off sedation Precedex drip to facilitate with weaning trials. On Keppra 500mg Q12 Pulm: Continue with vent support keep sat >92% Bronchodilators, ICU vent bundle. SBT daily as lisa HC 25mg Q12. CV: Place on Hydralazine 50mg Q8-Monitor HR and BP keep MAP>65mmHg On Amiodarone 200mg BID : Monitor renal function, electrolytes replacement as needed. Renal function is improving with Cr: 115 today Change Free water 250ml Q6 GI: On Glucerna 1.5@65ml/hr, On roly Colace, Lactulose for bowel regimen ID: Continue Imipenem, monitor for signs of infections ( Fever, WBC) d/c Azithromycin Urine cx: 07/11: Kleb ESBL, Citrobacter. Follow up on repeat urine cx Heme: Monitor CBC, on Ferrous sulfate and Folic acid Hep PLT ab -negative Endo: Increase SSI to medium scale for glycemic control GI prophylaxis- on Pepcid DVT prophylaxis- Heparin SQ Addendum 1530: Repeat ABG on BIPAP showed acute resp acidosis with PH: 7.19, PCO2: 77 patient was tachypenic, tachycardic she was subsequently intubated and placed on mechanical ventilation. Check CXR and ABG post intubation. Level 3 Brittani Mercado MD Jul 19, 2017 08:24
[2017-07-19] MEDS ORDERED: GLUCAGON 1 MG/ML VIAL OTHER PRN (08:30)
[2017-07-19] MEDS ORDERED: DEXTROSE 50% IN WATER 50 ML VIAL(D50) IV PUSH PRN (08:30)
[2017-07-19] MEDS: FAMOTIDINE 20 MG/2 ML VIAL IV PUSH SCH ×2 (08:59→19:40)
[2017-07-19] MEDS: HYDROCORTISONE SOD SUCCINATE 100 MG VIAL IV PUSH SCH ×2 (08:59→19:41)
[2017-07-19] MEDS: ARTIFICIAL TEARS OPTH SOLN 15 ML BTL EACH EYE SCH ×3 (09:00→16:25)
[2017-07-19] MEDS: DOCUSATE SODIUM 50 MG/SENNA 8.6 MG TAB PO SCH ×2 (09:00→19:42)
[2017-07-19] MEDS: COLLAGENASE OINT 30 GM TUBE TOPICAL SCH (09:00)
[2017-07-19] MEDS: FERROUS SULFATE 300 MG /5ML UDC PO SCH ×2 (09:00→19:40)
[2017-07-19] MEDS: MULTIVITAMIN TAB PO SCH (09:00)
[2017-07-19] MEDS: busPIRone HCL 10 MG TAB PO SCH ×2 (09:00→19:42)
[2017-07-19] MEDS: GABAPENTIN 300 MG CAP PO SCH (09:00)
[2017-07-19] MEDS: levETIRAcetam 500 MG/5 ML UDC NG SCH ×2 (09:00→19:41)
[2017-07-19] MEDS: ASCORBIC ACID 500 MG TAB PO SCH ×2 (09:00→19:42)
[2017-07-19] MEDS: FOLIC ACID 1 MG TAB PO SCH (09:00)
[2017-07-19] MEDS: LACTULOSE SYRUP 20 GM/30 ML CUP PO SCH ×3 (09:00→16:25)
[2017-07-19] MEDS: ZINC SULFATE 220 MG CAP PO SCH (09:00)
[2017-07-19] MEDS: AMIODARONE 200 MG TAB PO SCH ×2 (09:00→19:42)
[2017-07-19] MEDS: SODIUM CHLORIDE 0.9% FLUSH 10 ML FLUSH IV FLUSH SCH ×2 (09:00→19:42)
[2017-07-19] MEDS ORDERED: ETOMIDATE 40 MG/20 ML VIAL ONE (15:13)
[2017-07-19] MEDS ORDERED: PROPOFOL 500 MG/50 ML INJ 50 ML ONE (15:14)
--- NOTE | 2017-07-19 15:53 | RADRPT ---
EXAM DATE/TIME: 07/19/2017 15:28 [facility] COMPARISON: CHEST SINGLE AP, July 19, 2017, 4:24. INDICATIONS : Evaluate intubation MEDICAL HISTORY : None. SURGICAL HISTORY : None. ENCOUNTER: Subsequent ACUITY: 1 week PAIN SCORE: Non-responsive. LOCATION: chest FINDINGS: The heart is enlarged. There is diffuse interstitial prominence suggesting congestive failure versus pneumonia. The ET tube is in satisfactory position. The appearance of the parenchyma is mildly worse compared previous of 07/19/17. CONCLUSION: 1. ET tube in satisfactory position. 2. Diffuse interstitial prominence suggesting congestive failure versus pneumonia. Talon Terrazas MD on July 19, 2017 at 15:51 Board Certified Radiologist. This report was verified electronically.
[2017-07-19] MEDS: RESP: ACETYLCYSTEINE 10% 30 ML NEB NEB SCH ×2 (16:00→20:53)
[2017-07-19] MEDS ORDERED: FUROSEMIDE 40 MG/4 ML VIAL IV PUSH ONE (17:30)
[2017-07-19] MEDS: FLUCONAZOLE 100 MG TAB PO SCH (18:27)
[2017-07-19] MEDS: PROPOFOL 1000 MG/100 ML INJ 100 ML IV PRN (19:04)
[2017-07-19] MEDS: AMITRIPTYLINE HCL 10 MG TAB PO SCH (19:47)
[2017-07-20] VITALS (21 sets, daily range): BP systolic 101–142; BP diastolic 50–63; PULSE 58–81; RESP 16–21; TEMP 96.5–98.5; O2SAT 99–100
[2017-07-20] MEDS: PROPOFOL 1000 MG/100 ML INJ 100 ML IV PRN ×4 (02:25→18:21)
[2017-07-20] MEDS: IMIPENEM/CILASTATIN INJ 250 MG in SODIUM CHLORIDE 0.9% INJ 100 ML IV SCH ×2 (02:25→10:00)
[2017-07-20] MEDS: RESP: ACETYLCYSTEINE 10% 30 ML NEB NEB SCH ×4 (02:46→20:49)
[2017-07-20] MEDS: RESP: ALBUTEROL 2.5 MG/IPRATROPIUM 0.5 MG NEB (SCH) NEB ×4 (02:46→20:49)
[2017-07-20] MEDS: CHLORHEXIDINE GLUCONATE 2 % 1 PACK (2 CLOTHS) TOP SCH (04:00)
[2017-07-20] MEDS: INSULIN NovoLIN REGULAR SUPPLEMENTAL SCALE SQ SCH ×4 (04:00→19:44)
[2017-07-20] MEDS: hydrALAZINE HCL 50 MG TAB PO SCH ×3 (05:01→19:41)
[2017-07-20] MEDS: FREE WATER G-TUBE SCH ×5 (05:01→23:04)
[2017-07-20] MEDS: HEPARIN SODIUM - SQ 10,000 UNITS/ML VIAL SQ SCH ×3 (05:01→19:43)
[2017-07-20] MEDS: LEVOTHYROXINE SODIUM 25 MCG TAB PO SCH (05:01)
[2017-07-20 07:02] LABS: BASOPHIL % 0.1 % (0.0-2.0); EOSINOPHIL % 0.1 % (0.0-4.0); HEMATOCRIT 24.5 % (35.0-46.0); HEMOGLOBIN 7.9 GM/DL (11.6-15.3); LYMPHOCYTE # 0.3 TH/MM3 (1.0-4.8); MEAN CELL VOLUME 96.5 FL (80.0-100.0); MEAN CORPUSCULAR HEMOGLOBIN 31.2 PG (27.0-34.0); MEAN CORPUSCULAR HGB CONC 32.4 % (32.0-36.0); MEAN PLATELET VOLUME 8.8 FL (7.0-11.0); MONO % 4.5 % (0.0-8.0); MONOCYTE # 0.2 TH/MM3 (0-0.9); NEUT % 87.3 % (16.0-70.0); PLATELET COUNT 121 TH/MM3 (150-450); RED BLOOD COUNT 2.54 MIL/MM3 (4.00-5.30); RED CELL DISTRIBUTION WIDTH 20.2 % (11.6-17.2); WHITE BLOOD COUNT 3.5 TH/MM3 (4.0-11.0)
[2017-07-20 07:40] LABS: BICARBONATE 29.8 MEQ/L (21.0-32.0); CALCIUM 9.7 MG/DL (8.5-10.1); CREATININE 1.11 MG/DL (0.50-1.00); MAGNESIUM 2.8 MG/DL (1.5-2.5); PHOSPHORUS 4.2 MG/DL (2.5-4.9)
[2017-07-20] MEDS ORDERED: FUROSEMIDE 40 MG/4 ML VIAL IV PUSH ONE (08:30)
[2017-07-20] MEDS ORDERED: VANCOMYCIN INJ 1,000 MG in SODIUM CHLOR 0.9% 250 ML INJ 250 ML IV ONE (08:30)
[2017-07-20] MEDS: FERROUS SULFATE 300 MG /5ML UDC PO SCH ×2 (08:32→19:43)
[2017-07-20] MEDS: FLUCONAZOLE 100 MG TAB PO SCH (08:33)
[2017-07-20] MEDS: DOCUSATE SODIUM 50 MG/SENNA 8.6 MG TAB PO SCH ×2 (08:33→19:41)
[2017-07-20] MEDS: FOLIC ACID 1 MG TAB PO SCH (08:33)
[2017-07-20] MEDS: ASCORBIC ACID 500 MG TAB PO SCH ×2 (08:33→19:40)
[2017-07-20] MEDS: GABAPENTIN 300 MG CAP PO SCH (08:33)
[2017-07-20] MEDS: levETIRAcetam 500 MG/5 ML UDC NG SCH ×2 (08:33→19:43)
[2017-07-20] MEDS: ZINC SULFATE 220 MG CAP PO SCH (08:33)
[2017-07-20] MEDS: COLLAGENASE OINT 30 GM TUBE TOPICAL SCH (08:33)
[2017-07-20] MEDS: MULTIVITAMIN TAB PO SCH (08:33)
[2017-07-20] MEDS: LACTULOSE SYRUP 20 GM/30 ML CUP PO SCH ×3 (08:33→17:33)
[2017-07-20] MEDS: AMIODARONE 200 MG TAB PO SCH ×2 (08:33→19:41)
[2017-07-20] MEDS: ARTIFICIAL TEARS OPTH SOLN 15 ML BTL EACH EYE SCH ×3 (08:33→17:33)
[2017-07-20] MEDS: busPIRone HCL 10 MG TAB PO SCH ×2 (08:33→19:41)
[2017-07-20] MEDS: SODIUM CHLORIDE 0.9% FLUSH 10 ML FLUSH IV FLUSH SCH ×2 (08:34→19:50)
[2017-07-20] MEDS: HYDROCORTISONE SOD SUCCINATE 100 MG VIAL IV PUSH SCH ×2 (08:34→19:43)
[2017-07-20] MEDS: FAMOTIDINE 20 MG/2 ML VIAL IV PUSH SCH ×2 (08:34→19:51)
--- NOTE | 2017-07-20 08:40 | HHI.CCPN ---
Subjective Remarks/Hospital Course 07/11: 77-year-old morbidly obese female patient sent in from senior care, due to increased lethargy for the last 2 days, hypoglycemia early in the day with sugars of 44, given glucagon, chest x-ray showing a pneumonia according to facility staff, EMS noted the patient was fairly disoriented, GCS 6, and started bag valve masking her because of respiratory distress and hypoxia with sats in the 87% range despite oxygenation. Patient was brought in bag-valve- mask in progress and was immediately intubated in the emergency department by ED attending. 07/12: Sedated, orally intubated on mechanical ventilation. 07/13 Patient is sedated with Fentanyl and intubated. Afebrile. 07/14 No events overnight, Sedated with Fentanyl and Versed. Afebrile. Failed CPAP trials yesterday. 07/15 No events overnight. Sedated and intubated. ABG on CPAP yesterday showed resp acidosis with PH 7.22 and CO2: 58 07/16 Patient remains sedated and intubated 07/17. No events overnight. Remains sedated and intubated 07/18 Patient remains intubated off sedation. Afebrile. 07/19 Patient s/p extubation yesterday on BIPAP overnight. Awake. ABG last night showed resp acidosis with PH: 7.24, pCO2: 66 07/20 Patient was reintubated yesterday for resp failure. Sedated and intubated. Afebrile. Objective Vital Signs Date Time Temp Pulse Resp B/P (MAP) Pulse Ox O2 Delivery O2 Flow Rate FiO2 07/20/17 06:00 77 07/20/17 04:48 100 40 07/20/17 04:00 96.8 17 142/63 (89) 07/18/17 22:33 Nasal Cannula 2.00 Intake and Output 07/20/17 07/20/17 07/20/17 07:59 15:59 23:59 Intake Total 500 ml Output Total 300 ml Balance 200 ml Result Diagram: 07/20/17 0555 07/20/17 0555 Other Results Laboratory Tests Test 07/19/17 08:54 07/19/17 10:30 07/19/17 14:55 07/19/17 16:50 Blood Gas Puncture Site RT RADIAL RT RADIAL RT RADIAL RT RADIAL Blood Gas Patient Temperature 98.6 98.6 98.6 98.6 Blood Gas HCO3 28 mmol/L 28 mmol/L 28 mmol/L 28 mmol/L Blood Gas Base Excess 1.8 mmol/L 1.7 mmol/L 1.0 mmol/L 3.7 mmol/L Blood Gas Oxygen Saturation 94 % 94 % 90 % 95 % Arterial Blood pH 7.26 7.28 7.19 7.41 Arterial Blood Partial Pressure CO2 65 mmHg 60 mmHg 77 mmHg 45 mmHg Arterial Blood Partial Pressure O2 100 mmHg 101 mmHg 79 mmHg 97 mmHg Arterial Blood Oxygen Content 11.7 Vol % 11.5 Vol % 11.8 Vol % 10.2 Vol % Arterial Blood Carboxyhemoglobin 2.2 % 2.2 % 2.0 % 2.4 % Arterial Blood Methemoglobin 1.2 % 1.3 % 1.0 % 1.2 % Blood Gas Hemoglobin 8.8 G/DL 8.5 G/DL 9.3 G/DL 7.6 G/DL Oxygen Delivery Device BIPAP 15IPAP/8EPAP BIPAP 18IPAP/8EPAP BIPAP 18IPAP,8EPAP VENTILATOR Blood Gas Inspired Oxygen 35 % 35 % 35 % 40 % Blood Gas Ventilator Setting A/C 550/16/5PEEP Test 07/20/17 05:55 White Blood Count 3.5 TH/MM3 Red Blood Count 2.54 MIL/MM3 Hemoglobin 7.9 GM/DL Hematocrit 24.5 % Mean Corpuscular Volume 96.5 FL Mean Corpuscular Hemoglobin 31.2 PG Mean Corpuscular Hemoglobin Concent 32.4 % Red Cell Distribution Width 20.2 % Platelet Count 121 TH/MM3 Mean Platelet Volume 8.8 FL Neutrophils (%) (Auto) 87.3 % Lymphocytes (%) (Auto) 8.0 % Monocytes (%) (Auto) 4.5 % Eosinophils (%) (Auto) 0.1 % Basophils (%) (Auto) 0.1 % Neutrophils # (Auto) 3.0 TH/MM3 Lymphocytes # (Auto) 0.3 TH/MM3 Monocytes # (Auto) 0.2 TH/MM3 Eosinophils # (Auto) 0.0 TH/MM3 Basophils # (Auto) 0.0 TH/MM3 CBC Comment AUTO DIFF Differential Comment AUTO DIFF CONFIRMED Platelet Estimate LOW Platelet Morphology Comment NORMAL Blood Urea Nitrogen 60 MG/DL Creatinine 1.11 MG/DL Random Glucose 168 MG/DL Calcium Level 9.7 MG/DL Phosphorus Level 4.2 MG/DL Magnesium Level 2.8 MG/DL Sodium Level 150 MEQ/L Potassium Level 3.8 MEQ/L Chloride Level 113 MEQ/L Carbon Dioxide Level 29.8 MEQ/L Anion Gap 7 MEQ/L Estimat Glomerular Filtration Rate 48 ML/MIN Imaging Last Impressions Chest X-Ray 07/19/17 0600 Signed Impressions: Service Date/Time: July 04:24 - CONCLUSION: Persistent left lower lobe infiltrates and new opacity in the lower lateral right lung. Jasen Delvalle MD Head CT 07/11/17 1827 Signed Impressions: Service Date/Time: Tuesday, July 11, 2017 21:23 - CONCLUSION: No acute intracranial abnormality Jaden Clark MD Objective Remarks GENERAL: Morbidly obese elderly female intubated. SKIN: Warm and dry. HEAD: Normocephalic. EYES: No scleral icterus. No injection or drainage. NECK: Supple, trachea midline. No JVD or lymphadenopathy. CARDIOVASCULAR: Regular rate and rhythm without murmurs, gallops, or rubs. RESPIRATORY: Orally intubated on mechanical ventilation, Breath sounds equal bilaterally. GASTROINTESTINAL: Abdomen soft, non-tender, nondistended. MUSCULOSKELETAL: No cyanosis, or edema. BACK: Nontender without obvious deformity. NEURO EXAM: Mental Status: Intubated A/P Assessment and Plan Respiratory failure Reintubated 07/19 Altered mental status UTI Diabetes mellitus RADHA Anemia Hypothyroidism History of hypertension Seizure disorder Neuropathy Plan Neuro: On Diprivan infusion for sedation. Daily sedation vacation. Monitor neuro status. On Keppra 500mg Q12 Pulm: Continue with vent support keep sat >92% Bronchodilators, ICU vent bundle. SBT daily as lisa HC 25mg Q12. CV: On Hydralazine 50mg Q8-Monitor HR and BP keep MAP>65mmHg Amiodarone 200mg BID Check 2D echo to eval LV function : Monitor renal function, electrolytes replacement as needed. Renal function continue to improve with Cr: 1.11 today Change Free water 250ml Q6, diurese with Lasix 40mg x1 GI: On Glucerna 1.5@65ml/hr, On roly Colace, Lactulose for bowel regimen ID: Continue Imipenem, Diflucan, monitor for signs of infections ( Fever, WBC) Give Vanco x 1 dose Urine cx: 07/11: Kleb ESBL, Citrobacter. Repeat urine cx 07/18 - Kirsten Albicans Check sputum cx, strep pneumonia and Legionella urinary Ag negative on 07/11.. ID eval. Heme: Monitor CBC, on Ferrous sulfate and Folic acid Hep PLT ab -negative Endo: Increase SSI to medium scale for glycemic control GI prophylaxis- on Pepcid DVT prophylaxis- Heparin SQ Level 3 Brittani Mercado MD Jul 20, 2017 08:40
--- NOTE | 2017-07-20 10:29 | PD.CONS ---
History of Present Illness Service Infectious Disease Consult Requested By Dr Mercado Reason for Consult Evaluate patient with pneumonia Primary Care Physician [facility] Diagnoses: History of Present Illness Patient seen and examined. Records reviewed. Patient is a 77-year-old female, brought into the hospital for further evaluation of worsening lethargy over the last 2 days. She also was found to be hypoglycemic there was apparently a [facility] and it showed some pneumonia. Patient has been in and out of the hospital. Looks like the last time she was here was in June. Patient ended up getting intubated in the emergency room, and she was put on antibiotics for pneumonia, and was also found to have a urinary tract infection. A Eid was placed when she presented to the hospital. Patient was extubated about 2 days ago, and yesterday she deteriorated and ended up getting reintubated. She is afebrile. Her WBC had gone down to 3.5. She is currently awake, and breathing more comfortably. She doesn't have a lot of secretions from her endotracheal tube. Her hemodynamics are good. Infectious disease consultation has been requested to evaluate the patient with pneumonia. Review of Systems Constitutional: DENIES: Fever, Chills Eyes: DENIES: Eye pain Ears, nose, mouth, throat: DENIES: Oral lesions, Sinus Pain Respiratory: COMPLAINS OF: Shortness of breath Cardiovascular: DENIES: Chest pain Gastrointestinal: DENIES: Abdominal pain, Nausea, Vomiting Integumentary: DENIES: Rash Psychiatric: DENIES: Hallucinations Past Family Social History Allergies: Coded Allergies: FRANCK Inhibitors (Verified Allergy, Unknown, 07/11/17) Cstmjwd-Tpc-Yko Reductase Inhibitor (Verified Allergy, Unknown, 07/11/17) Past Medical History Diabetes mellitus Hypertension Arrhythmia Hypothyroidism Seizure disorder Anxiety Depression Previous UTI Arthritis Past Surgical History Abdominal surgery in April, for free air, and he had cholecystectomy and appendectomy, but no real source of free air was found Previous tracheostomy and PEG placement, removed Abdominal wound, post surgery back in April, very slow to heal Back surgery Active Ordered Medications Current Medications Primaxin Diflucan Vancomycin x 1 Medications (Trade) Dose Ordered Sig/Kerri Route Start Time Stop Time Status Last Admin (NS Flush) 2 ml UNSCH PRN IV FLUSH 07/11/17 19:15 07/15/17 08:13 (NS Flush) 2 ml BID IV FLUSH 07/11/17 21:00 07/20/17 08:34 (Tylenol) 650 mg Q6H PRN PO 07/11/17 19:15 (Tears Naturale Opth Soln) 1 drop TID EACH EYE 07/12/17 09:00 07/20/17 08:33 (Zofran Inj) 4 mg Q6H PRN IV PUSH 07/11/17 19:15 (Heparin Inj) 5,000 units Q8H SQ 07/11/17 21:00 07/20/17 05:01 Miscellaneous Information 1 Q361D XX 07/11/17 19:15 07/11/17 19:15 (Chlorhexidine 2% Cloth) Taper DAILY@04 TOP 07/12/17 04:00 07/08/18 03:59 07/14/17 04:00 (Chlorhexidine 2% Cloth) 3 pack UNSCH PRN TOP 07/11/17 19:15 (Mare-Colace) 1 tab BID PO 07/11/17 21:00 07/20/17 08:33 (Milk Of Magnesia Liq) 30 ml Q12H PRN PO 07/11/17 19:15 (Senokot) 17.2 mg Q12H PRN PO 07/11/17 19:15 (Dulcolax Supp) 10 mg DAILY PRN RECTAL 07/11/17 19:15 (Lactulose Liq) 30 ml DAILY PRN PO 07/11/17 19:15 (Xanax) 0.5 mg Q6H PRN PO 07/11/17 20:15 07/18/17 15:40 (Cordarone) 200 mg BID PO 07/11/17 21:00 07/20/17 08:33 (Elavil) 10 mg HS PO 07/11/17 21:00 07/19/17 19:47 (Vitamin C) 500 mg BID PO 07/11/17 21:00 07/20/17 08:33 (Buspar) 10 mg BID PO 07/11/17 21:00 07/20/17 08:33 (Santyl Oint) 1 applic DAILY TOPICAL 07/12/17 09:00 07/20/17 08:33 (Folate) 1 mg DAILY PO 07/12/17 09:00 07/20/17 08:33 (Synthroid) 25 mcg DAILY@0600 PO 07/12/17 06:00 07/20/17 05:01 (Zinc Sulfate) 220 mg DAILY PO 07/12/17 09:00 07/20/17 08:33 (Theragran) 1 tab DAILY PO 07/12/17 09:00 07/20/17 08:33 (Ativan Inj) 2 mg Q2H PRN IV PUSH 07/12/17 09:30 07/17/17 17:17 (Keppra Liq) 500 mg Q12HR NG 07/12/17 13:00 07/20/17 08:33 (Ferrous Sulfate Liq) 300 mg BID PO 07/12/17 13:00 07/20/17 08:32 (Neurontin) 600 mg DAILY PO 07/13/17 09:00 07/20/17 08:33 (Pepcid Inj) 10 mg Q12HR IV PUSH 07/12/17 21:00 07/20/17 08:34 (Lactulose Liq) 30 ml TID PO 07/14/17 13:00 07/20/17 08:33 Imipenem/ Cilastatin Sodium 250 mg/Sodium Chloride 100 ml @ 200 mls/hr Q8H IV 07/16/17 18:00 07/20/17 02:25 (SoluCORTEF INJ) 25 mg Q12H IV PUSH 07/17/17 21:00 07/20/17 08:34 (Apresoline) 50 mg Q8HR PO 07/18/17 08:45 07/20/17 05:01 (Apresoline Inj) 10 mg Q6H PRN IV PUSH 07/18/17 09:00 07/19/17 05:37 (Duoneb Neb) 1 ampule Q6HR NEB NEB 07/18/17 16:00 07/20/17 08:50 (Duoneb Neb) 1 ampule Q2HR NEB PRN NEB 07/18/17 14:45 07/19/17 00:33 (D50w (Vial) Inj) 50 ml UNSCH PRN IV PUSH 07/19/17 08:30 (Glucagon Inj) 1 mg UNSCH PRN OTHER 07/19/17 08:30 (NovoLIN R SUPPLEMENTAL SCALE) 1 Q6H SQ 07/19/17 10:00 07/20/17 10:00 (Mucomyst 10% Neb) 2 ml Q6HR NEB NEB 07/19/17 16:00 Propofol 100 ml @ 4.53 mls/hr TITRATE PRN IV 07/19/17 15:30 07/20/17 08:40 (Diflucan) 100 mg DAILY PO 07/19/17 17:30 07/20/17 08:33 (Free Water) 250 ml Q6HR G-TUBE 07/20/17 12:00 Family History Noncontributory Social History Has been in the jail No smoking Drinks alcohol socially No illicit drugs Physical Exam Vital Signs Vital Signs Date Time Temp Pulse Resp B/P (MAP) Pulse Ox O2 Delivery O2 Flow Rate FiO2 07/20/17 08:50 100 40 07/20/17 06:00 77 07/20/17 04:48 100 40 07/20/17 04:00 40 07/20/17 04:00 76 07/20/17 04:00 96.8 81 17 142/63 (89) 99 07/20/17 02:00 63 07/20/17 00:30 100 40 07/20/17 00:00 40 07/20/17 00:00 64 07/20/17 00:00 96.5 63 16 130/60 (83) 100 07/19/17 22:00 63 07/19/17 20:47 100 40 07/19/17 20:00 96.4 66 16 113/74 (87) 100 07/19/17 20:00 65 07/19/17 20:00 40 07/19/17 18:00 68 07/19/17 16:00 76 07/19/17 16:00 98.9 76 20 132/82 (99) 97 07/19/17 16:00 40 07/19/17 15:30 100 40 07/19/17 14:00 98 07/19/17 12:00 100 07/19/17 12:00 98.7 91 20 120/95 (103) 96 Physical Exam GENERAL: Patient is an obese, well-developed female, intubater, awake and alert, not in respiratory distress. SKIN: Cool and dry. Edematous, has ecchymoses in both UE, no generalized rash HEAD: Atraumatic. Normocephalic. No temporal wasting, or tenderness. EYES: [place] conjunctiva. No petechia or hemorrhage. Pupils equal, round and reactive to light. Extraocular movements full and intact. No scleral icterus. No injection or drainage. EARS, NOSE AND THROAT: Nose without bleeding or purulent nasal discharge. No sinus tenderness. She is orally intubated. Moist oral mucosa. NECK: Trachea midline. Supple and not tender, no meningeal signs CARDIOVASCULAR: Regular rate and rhythm. Soft heart sounds. No murmurs, rubs or gallops heard RESPIRATORY: Diffuse rhonchi bilaterally. ABDOMEN: Soft, obese, non-tender, nondistended. Bowel sounds present and normoactive. No guarding. No rebound. No organomegaly. There is an open wound on R side that is about 4 x 3 inches long with some slough, no surrounding erythema or induration EXTREMITIES: No clubbing, cyanosis, or edema.No joint effusion, has good ROM. No calf tenderness. Well perfused and warm. NEUROLOGICAL: Awake and alert. No facial asymmetry. Motor grossly within normal limits. PSYCHIATRIC: calm and cooperative. LINE: No evidence of infection Laboratory Laboratory Tests Test 07/19/17 10:30 07/19/17 14:55 07/19/17 16:50 07/20/17 05:55 Blood Gas Puncture Site RT RADIAL RT RADIAL RT RADIAL Blood Gas Patient Temperature 98.6 98.6 98.6 Blood Gas HCO3 28 28 28 Blood Gas Base Excess 1.7 1.0 3.7 Blood Gas Oxygen Saturation 94 90 95 Arterial Blood pH 7.28 7.19 7.41 Arterial Blood Partial Pressure CO2 60 77 45 Arterial Blood Partial Pressure O2 101 79 97 Arterial Blood Oxygen Content 11.5 11.8 10.2 Arterial Blood Carboxyhemoglobin 2.2 2.0 2.4 Arterial Blood Methemoglobin 1.3 1.0 1.2 Blood Gas Hemoglobin 8.5 9.3 7.6 Oxygen Delivery Device BIPAP 18IPAP/8EPAP BIPAP 18IPAP,8EPAP VENTILATOR Blood Gas Inspired Oxygen 35 35 40 Blood Gas Ventilator Setting A/C 550/16/5PEEP White Blood Count 3.5 Red Blood Count 2.54 Hemoglobin 7.9 Hematocrit 24.5 Mean Corpuscular Volume 96.5 Mean Corpuscular Hemoglobin 31.2 Mean Corpuscular Hemoglobin Concent 32.4 Red Cell Distribution Width 20.2 Platelet Count 121 Mean Platelet Volume 8.8 Neutrophils (%) (Auto) 87.3 Lymphocytes (%) (Auto) 8.0 Monocytes (%) (Auto) 4.5 Eosinophils (%) (Auto) 0.1 Basophils (%) (Auto) 0.1 Neutrophils # (Auto) 3.0 Lymphocytes # (Auto) 0.3 Monocytes # (Auto) 0.2 Eosinophils # (Auto) 0.0 Basophils # (Auto) 0.0 CBC Comment AUTO DIFF Differential Comment AUTO DIFF CONFIRMED Platelet Estimate LOW Platelet Morphology Comment NORMAL Blood Urea Nitrogen 60 Creatinine 1.11 Random Glucose 168 Calcium Level 9.7 Phosphorus Level 4.2 Magnesium Level 2.8 Sodium Level 150 Potassium Level 3.8 Chloride Level 113 Carbon Dioxide Level 29.8 Anion Gap 7 Estimat Glomerular Filtration Rate 48 Date/Time Source Procedure Growth Status 07/11/17 19:15 Blood Peripheral Aerobic Blood Culture - Final NO GROWTH IN 5 DAYS Complete 07/11/17 19:15 Blood Peripheral Anaerobic Blood Culture - Final NO GROWTH IN 5 DAYS Complete 07/18/17 05:00 Urine Catheterized Urine Urine Culture - Final Kirsten Albicans Complete Result Diagram: 07/20/17 0555 07/20/17 0555 Imaging Chest X-Ray 07/19/17 0600 Signed Impressions: Service Date/Time: July 04:24 - CONCLUSION: Persistent left lower lobe infiltrates and new opacity in the lower lateral right lung. Jasen Delvalle MD Chest X-Ray 07/19/17 0000 Signed Impressions: Service Date/Time: July 15:28 - CONCLUSION: 1. ET tube in satisfactory position. 2. Diffuse interstitial prominence suggesting congestive failure versus pneumonia. Talon Terrazas MD Chest X-Ray 07/19/17 0600 Signed Impressions: Service Date/Time: July 04:24 - CONCLUSION: Persistent left lower lobe infiltrates and new opacity in the lower lateral right lung. Jasen Delvalle MD Head CT 07/11/17 1827 Signed Impressions: Service Date/Time: Tuesday, July 11, 2017 21:23 - CONCLUSION: No acute intracranial abnormality Jaden Clark MD Assessment and Plan Assessment and Plan IMPRESSION Recurrent respiratory failure, possibly with new VAP UTI, first UC with Kleb ESBL and Citrobacter - now with C albicans Neutropenia, ?due to new infection, ?meds Obesity RECOMMENDATION Agree with repeat C/S Follow CBC Continue IV vanco Continue Diflucan Change Primaxin to Zerbaxa for continued GNR Add levaquin for additional GNR (Sten mal) Follow new C/S and adjust Abx Monitor progress I will follow along with you Thank you for this consultation Dr Thrasher covering this weekend Discussed Condition With Explained plan to family members D/W Xochilt Sheppard MD Jul 20, 2017 10:29
[2017-07-20] MEDS ORDERED: Vancomycin Consult Pharmacy 1 EA OTHER SCH (11:00)
[2017-07-20] MEDS: CEFTOLOZANE-TAZOBACTAM INJ 750 MG in SODIUM CHLORIDE 0.9% INJ 100 ML IV SCH ×2 (14:00→19:41)
--- NOTE | 2017-07-20 15:58 | ECHRPT ---
Indication: EVAL LV FUNCTION CONCLUSIONS Normal left ventricular size with upper normal wall thickness. The left ventricular systolic functio n is normal with an estimated ejection fraction in the range of 60-65%. Normal wall motion. [id number] mitral valve regurgitation. There is trace tricuspid valve regurgitation. The estimated pulmonary arterial pressure is 47.2 mmHg. BP: / HR: Rhythm: Sinus MEASUREMENTS (Male / Female) Normal Values Technical Quality:Fair 2D ECHO LV Diastolic Diameter PLAX 5.4 cm 4.2 - 5.9 / 3.9 - 5.3 cm LV Systolic Diameter PLAX 3.3 cm IVS Diastolic Thickness 1.0 cm 0.6 - 1.0 / 0.6 - 0.9 cm LVPW Diastolic Thickness 1.0 cm 0.6 - 1.0 / 0.6 - 0.9 cm LV Relative Wall Thickness 0.4 RV Internal Dim ED PLAX 3.7 cm LVOT Diameter 2.1 cm Aortic Root Diameter 3.2 cm LA Systolic Diameter LX 4.5 cm 3.0 - 4.0 / 2.7 - 3.8 cm M-MODE AV Cusp Separation MM 1.7 cm DOPPLER AV Peak Velocity 186.0 cm/s AV Peak Gradient 13.8 mmHg AV Mean Gradient 5.0 mmHg AV Velocity Time Integral 40.5 cm LVOT Peak Velocity 93.2 cm/s LVOT Peak Gradient 3.5 mmHg LVOT Velocity Time Integral 24.7 cm AV Area Cont Eq vti 2.1 cm AV Area Cont Eq pk 1.7 cm Mitral E Point Velocity 115.0 cm/s Mitral A Point Velocity 120.0 cm/s Mitral E to A Ratio 1.0 LV E' Lateral Velocity 7.8 cm/s Mitral E to LV E' Lateral Ratio 14.7 LV E' Septal Velocity 5.0 cm/s Mitral E to LV E' Septal Ratio 23.1 TR Peak Velocity 305.0 cm/s TR Peak Gradient 37.2 mmHg Right Atrial Pressure 10.0 mmHg Pulmonary Artery Systolic Pressu 47.2 mmHg Right Ventricular Systolic Press 47.2 mmHg PV Peak Velocity 83.5 cm/s PV Peak Gradient 2.8 mmHg FINDINGS LEFT VENTRICLE Normal left ventricular size and wall thickness. The left ventricular systolic function is normal wi th an estimated ejection fraction in the range of 60-65%. Normal wall motion. RIGHT VENTRICLE Normal right ventricular size and systolic function. LEFT ATRIUM The left atrial size is [id number] dilated. RIGHT ATRIUM The right atrial size is normal. ATRIAL SEPTUM Normal atrial septal thickness without atrial level shunting by limited color doppler interrogation. AORTA The aortic root and proximal ascending aorta are normal in size on limited imaging. MITRAL VALVE Gubwq-vk-smrr mitral valve regurgitation. AORTIC VALVE Trileaflet aortic valve. No aortic valve stenosis or regurgitation. TRICUSPID VALVE There is trace tricuspid valve regurgitation. The estimated pulmonary arterial pressure is 47.2 mmHg. PULMONARY VALVE Mild pulmonary valve regurgitation. VESSELS The inferior vena cava is normal in size. PERICARDIUM No pericardial effusion. Rosendo Ness MD (Electronically Signed) Final Date:20 July 2017 15:58
[2017-07-20] MEDS: AMITRIPTYLINE HCL 10 MG TAB PO SCH (19:41)
[2017-07-21] VITALS (21 sets, daily range): BP systolic 85–140; BP diastolic 41–70; PULSE 50–66; RESP 16; TEMP 97.3–98.7; O2SAT 99–100
[2017-07-21] MEDS: PROPOFOL 1000 MG/100 ML INJ 100 ML IV PRN ×6 (00:56→21:58)
[2017-07-21] MEDS: RESP: ALBUTEROL 2.5 MG/IPRATROPIUM 0.5 MG NEB (SCH) NEB ×4 (02:58→21:23)
[2017-07-21] MEDS: RESP: ACETYLCYSTEINE 10% 30 ML NEB NEB SCH ×4 (02:58→21:23)
[2017-07-21] MEDS: CHLORHEXIDINE GLUCONATE 2 % 1 PACK (2 CLOTHS) TOP SCH (04:00)
[2017-07-21] MEDS: INSULIN NovoLIN REGULAR SUPPLEMENTAL SCALE SQ SCH ×4 (04:00→22:00)
--- NOTE | 2017-07-21 04:54 | RADRPT ---
EXAM DATE/TIME: 07/21/2017 03:13 [facility] COMPARISON: CHEST SINGLE AP, July 19, 2017, 15:28. INDICATIONS : Evaluate for Pneumonia- Respiratory failure MEDICAL HISTORY : None. SURGICAL HISTORY : None. ENCOUNTER: Subsequent ACUITY: 1 week PAIN SCORE: Non-responsive. LOCATION: Bilateral chest FINDINGS: Single AP view of the chest. Surgical hardware is again seen in the upper thoracic spine. Endotrachea l tube remains in place. Nasogastric tube is now in place with the tip below the [id number] of the radiograph. Persistent bilateral pulmonary parenchymal opacity. No significant change. Cardiomediast inal silhouette unchanged. No evidence of pneumothorax. CONCLUSION: Nasogastric tube now in place with the tip below the [id number] of the radiograph. No significant interval change in bilateral pulmonary opacity. Differential diagnosis includes pulmonary edema and i nfection. Angelito Lovett MD on July 21, 2017 at 4:51 Board Certified Radiologist. This report was verified electronically.
[2017-07-21] MEDS: CEFTOLOZANE-TAZOBACTAM INJ 750 MG in SODIUM CHLORIDE 0.9% INJ 100 ML IV SCH ×3 (05:06→21:57)
[2017-07-21] MEDS: LEVOTHYROXINE SODIUM 25 MCG TAB PO SCH (05:06)
[2017-07-21] MEDS: hydrALAZINE HCL 50 MG TAB PO SCH ×3 (05:06→22:00)
[2017-07-21] MEDS: HEPARIN SODIUM - SQ 10,000 UNITS/ML VIAL SQ SCH ×3 (05:06→21:59)
[2017-07-21] MEDS: FREE WATER G-TUBE SCH ×5 (05:07→22:29)
[2017-07-21 07:08] LABS: BICARBONATE 26.4 MEQ/L (21.0-32.0); CALCIUM 8.9 MG/DL (8.5-10.1); CREATININE 1.05 MG/DL (0.50-1.00); MAGNESIUM 2.4 MG/DL (1.5-2.5)
[2017-07-21 07:09] LABS: RANDOM VANCOMYCIN 12.3 COMMENT
[2017-07-21 07:43] LABS: AUTOMATED NEUTROPHIL # 2.1 TH/MM3 (1.8-7.7); BASOPHIL % 0.5 % (0.0-2.0); EOSINOPHIL % 0.3 % (0.0-4.0); HEMATOCRIT 22.7 % (35.0-46.0); HEMOGLOBIN 7.5 GM/DL (11.6-15.3); LYMPH % 13.6 % (9.0-44.0); LYMPHOCYTE # 0.3 TH/MM3 (1.0-4.8); MEAN CELL VOLUME 96.1 FL (80.0-100.0); MEAN CORPUSCULAR HEMOGLOBIN 31.6 PG (27.0-34.0); MEAN CORPUSCULAR HGB CONC 32.8 % (32.0-36.0); MEAN PLATELET VOLUME 9.4 FL (7.0-11.0); MONO % 3.5 % (0.0-8.0); MONOCYTE # 0.1 TH/MM3 (0-0.9); NEUT % 82.1 % (16.0-70.0); PLATELET COUNT 90 TH/MM3 (150-450); RED BLOOD COUNT 2.36 MIL/MM3 (4.00-5.30); RED CELL DISTRIBUTION WIDTH 20.4 % (11.6-17.2); WHITE BLOOD COUNT 2.5 TH/MM3 (4.0-11.0)
[2017-07-21] MEDS: FERROUS SULFATE 300 MG /5ML UDC PO SCH ×2 (08:52→21:58)
[2017-07-21] MEDS: LACTULOSE SYRUP 20 GM/30 ML CUP PO SCH ×3 (08:52→17:51)
[2017-07-21] MEDS: FOLIC ACID 1 MG TAB PO SCH (08:53)
[2017-07-21] MEDS: MULTIVITAMIN TAB PO SCH (08:53)
[2017-07-21] MEDS: busPIRone HCL 10 MG TAB PO SCH ×2 (08:53→22:00)
[2017-07-21] MEDS: FAMOTIDINE 20 MG/2 ML VIAL IV PUSH SCH ×2 (08:53→22:00)
[2017-07-21] MEDS: HYDROCORTISONE SOD SUCCINATE 100 MG VIAL IV PUSH SCH (08:53)
[2017-07-21] MEDS: levETIRAcetam 500 MG/5 ML UDC NG SCH ×2 (08:53→21:58)
[2017-07-21] MEDS: DOCUSATE SODIUM 50 MG/SENNA 8.6 MG TAB PO SCH ×2 (08:53→21:59)
[2017-07-21] MEDS: GABAPENTIN 300 MG CAP PO SCH (08:53)
[2017-07-21] MEDS: ASCORBIC ACID 500 MG TAB PO SCH ×2 (08:53→22:00)
[2017-07-21] MEDS: AMIODARONE 200 MG TAB PO SCH ×2 (08:53→21:00)
[2017-07-21] MEDS: ZINC SULFATE 220 MG CAP PO SCH (08:53)
[2017-07-21] MEDS: COLLAGENASE OINT 30 GM TUBE TOPICAL SCH (08:54)
[2017-07-21] MEDS: SODIUM CHLORIDE 0.9% FLUSH 10 ML FLUSH IV FLUSH SCH ×2 (08:54→21:57)
[2017-07-21] MEDS: ARTIFICIAL TEARS OPTH SOLN 15 ML BTL EACH EYE SCH ×3 (08:54→17:51)
[2017-07-21] MEDS: FLUCONAZOLE 100 MG TAB PO SCH (09:00)
[2017-07-21] MEDS: ALPRAZolam 0.5 MG TAB PO PRN (11:03)
[2017-07-21] MEDS ORDERED: VANCOMYCIN 1,500 MG/NS 500 ML IV ONE ×2 (13:00)
[2017-07-21] MEDS ORDERED: POTASSIUM PHOSPHATE MONOBASIC 500 MG TAB PO PRN (14:45)
[2017-07-21] MEDS ORDERED: MAGNESIUM SULFATE INJ 4 GM in SODIUM CHLORIDE 0.9% INJ 92 ML IV PRN (14:45)
[2017-07-21] MEDS ORDERED: MAGNESIUM OXIDE 400 MG TAB PO PRN (14:45)
[2017-07-21] MEDS ORDERED: MAGNESIUM SULFATE INJ 2 GM in SODIUM CHLORIDE 0.9% INJ 96 ML IV PRN (14:45)
[2017-07-21] MEDS ORDERED: POTASSIUM PHOSPHATE INJ 30 MMOL in SODIUM CHLOR 0.9% 250 ML INJ 250 ML IV PRN (14:45)
[2017-07-21] MEDS ORDERED: POTASSIUM CHLOR 20 MEQ PREMIX 100 ML IV PRN (14:45)
[2017-07-21] MEDS ORDERED: POTASSIUM PHOSPHATE MONOBASIC 500 MG TAB PO/TUBE PRN (14:45)
[2017-07-21] MEDS ORDERED: POTASSIUM CHLOR 40 MEQ PREMIX 100 ML IV PRN ×2 (14:45)
[2017-07-21] MEDS ORDERED: SODIUM PHOSPHATE INJ 30 MMOL in SODIUM CHLOR 0.9% 250 ML INJ 240 ML IV PRN (14:45)
--- NOTE | 2017-07-21 14:46 | HHI.CCPN ---
Subjective Remarks/Hospital Course 07/11: 77-year-old morbidly obese female patient sent in from correction, due to increased lethargy for the last 2 days, hypoglycemia early in the day with sugars of 44, given glucagon, chest x-ray showing a pneumonia according to facility staff, EMS noted the patient was fairly disoriented, GCS 6, and started bag valve masking her because of respiratory distress and hypoxia with sats in the 87% range despite oxygenation. Patient was brought in bag-valve- mask in progress and was immediately intubated in the emergency department by ED attending. 07/12: Sedated, orally intubated on mechanical ventilation. 07/13 Patient is sedated with Fentanyl and intubated. Afebrile. 07/14 No events overnight, Sedated with Fentanyl and Versed. Afebrile. Failed CPAP trials yesterday. 07/15 No events overnight. Sedated and intubated. ABG on CPAP yesterday showed resp acidosis with PH 7.22 and CO2: 58 07/16 Patient remains sedated and intubated 07/17. No events overnight. Remains sedated and intubated 07/18 Patient remains intubated off sedation. Afebrile. 07/19 Patient s/p extubation yesterday on BIPAP overnight. Awake. ABG last night showed resp acidosis with PH: 7.24, pCO2: 66 07/20 Patient was reintubated yesterday for resp failure. Sedated and intubated. Afebrile. 07/21: new HCAP with GNRs in sputum. persistent respiratory failure. likely will require long-term ventilation and slow wean. will consult general surgery for re-do trach and gastric access. Objective Vital Signs Date Time Temp Pulse Resp B/P (MAP) Pulse Ox O2 Delivery O2 Flow Rate FiO2 07/21/17 12:00 98.3 54 16 118/54 (75) 100 07/21/17 12:00 40 07/18/17 22:33 Nasal Cannula 2.00 Intake and Output 07/21/17 07/21/17 07/22/17 08:00 16:00 00:00 Intake Total 700 ml Output Total 700 ml Balance 0 ml Result Diagram: 07/21/17 0452 07/21/17 0452 Imaging Last Impressions Chest X-Ray 07/19/17 0600 Signed Impressions: Service Date/Time: July 04:24 - CONCLUSION: Persistent left lower lobe infiltrates and new opacity in the lower lateral right lung. Jasen Delvalle MD Head CT 07/11/177 Signed Impressions: Service Date/Time: Tuesday, July 11, 2017 21:23 - CONCLUSION: No acute intracranial abnormality Jaden Clark MD Objective Remarks GENERAL: Morbidly obese elderly female intubated. SKIN: Warm and dry. HEAD: Normocephalic. EYES: No scleral icterus. No injection or drainage. NECK: Supple, trachea midline. large neck circumference prevents assessment of jvd. small ulcerated area from prior trach site. CARDIOVASCULAR: Regular rate and rhythm. RESPIRATORY: Orally intubated on mechanical ventilation. GASTROINTESTINAL: Abdomen soft, non-tender, nondistended. left non-healing ulcer area from prior PEG site. MUSCULOSKELETAL: No cyanosis, or edema. NEURO EXAM: RASS -2. sedated. follows commands. A/P Assessment and Plan Assessment: 77yF with morbid obesity and recurrent healthcare associated pneumonia and hypoxic respiratory failure. will require trach and longer weaning. this is a recurrent trach from prolonged illness in the last 3 months- may not do well long-term. Plan Neuro: metabolic encephalopathy Seizure disorder Neuropathy On Diprivan infusion for sedation. Daily sedation vacation. Monitor neuro status. On Keppra 500mg Q12 Pulm: Acute hypoxic and hypercarbic Respiratory failure Recurrent healthcare associated pneumonia Reintubated 07/19 Continue with vent support keep sat >92% Bronchodilators, ICU vent bundle. SBT daily as lisa HC 25mg Q12. CV: History of hypertension On Hydralazine 50mg Q8-Monitor HR and BP keep MAP>65mmHg Amiodarone 200mg BID Check 2D echo to eval LV function : Acute kidney injury Free water deficit Monitor renal function, electrolytes replacement as needed. Renal function continue to improve increase free water to 300mL q4h. GI: Morbid Obesity Acute protein calorie malnutrition- moderate On Glucerna 1.5@65ml/hr, On roly Colace, Lactulose for bowel regimen ICU electrolyte protocol ID: Recurrent HCAP pneumonia Urinary tract infection Continue Imipenem, Diflucan, monitor for signs of infections ( Fever, WBC) Give Vanco x 1 dose Urine cx: 07/11: Kleb ESBL, Citrobacter. Repeat urine cx 07/18 - Kirsten Albicans Check sputum cx, strep pneumonia and Legionella urinary Ag negative on 07/11.. ID eval. Heme: Anemia secondary to chronic disease Monitor CBC, on Ferrous sulfate and Folic acid Hep PLT ab -negative Endo: Hypothyroidism Hyperglycemia of Critical illness SSI medium scale for glycemic control GI prophylaxis- on Pepcid DVT prophylaxis- Heparin SQ Rafael Wilson MD Jul 21, 2017 14:46
[2017-07-21] MEDS: LORazepam 2 MG/ML VIAL IV PUSH PRN (18:05)
--- NOTE | 2017-07-21 18:06 | HHI.IDPN ---
Note Infectious Disease Note ID COVERAGE: Patient is on the vent and appears alert. Afebrile. Trach planned. Sputum culture has gram neg rene. Little thin ETT secretions per RN. Patient is a 77-year-old female, brought into the hospital for further evaluation of worsening lethargy over the last 2 days. She also was found to be hypoglycemic there was apparently a chest x-ray done in the [facility] and it showed some pneumonia. Patient has been in and out of the hospital mostly at to [facility]. Looks like the last time she was tear was in June. Patient ended up getting intubated in the emergency room, and she was put on antibiotics for pneumonia, and was also found to have a urinary tract infection. A Eid was placed when she presented to the hospital. Patient was extubated about 2 days ago, and yesterday she deteriorated and ended up getting reintubated. She is afebrile. Her WBC had gone down to 3.5. She is currently awake, and breathing more comfortably. She doesn't have a lot of secretions from her endotracheal tube. Her hemodynamics are good. Infectious disease consultation has been requested to evaluate the patient with pneumonia. Past Family Social History Allergies: Coded Allergies: FRANCK Inhibitors (Verified Allergy, Unknown, 07/11/17) Sfdusvb-Jjc-Tia Reductase Inhibitor (Verified Allergy, Unknown, 07/11/17) Past Medical History Diabetes mellitus Hypertension Arrhythmia Hypothyroidism Seizure disorder Anxiety Depression Previous UTI Arthritis Past Surgical History Abdominal surgery in April, for free air, and he had cholecystectomy and appendectomy, but no real source of free air was found Previous tracheostomy and PEG placement, removed Abdominal wound, post surgery back in April, very slow to heal Back surgery Active Ordered Medications Current Medications Zerbaxa. Diflucan Vancomycin x 1 OBJECTIVE: Vital Signs Date Time Temp Pulse Resp B/P (MAP) Pulse Ox O2 Delivery O2 Flow Rate FiO2 07/21/17 16:16 100 40 07/21/17 16:00 40 07/21/17 14:00 57 07/21/17 12:00 98.3 54 16 118/54 (75) 100 07/21/17 12:00 58 07/21/17 12:00 40 07/21/17 11:44 100 40 07/21/17 11:00 61 07/21/17 10:00 54 16 100 07/21/17 10:00 54 07/21/17 09:00 61 07/21/17 08:48 100 40 07/21/17 08:01 100/70 (80) 07/21/17 08:00 98.0 63 16 100 07/21/17 08:00 40 07/21/17 08:00 63 07/21/17 06:00 58 07/21/17 04:01 99 40 07/21/17 04:00 97.3 64 16 140/60 (86) 100 07/21/17 04:00 66 07/21/17 04:00 40 07/21/17 02:00 64 07/21/17 00:00 40 07/21/17 00:00 57 07/21/17 00:00 97.4 57 16 134/60 (84) 99 07/20/17 23:45 99 40 07/20/17 22:00 60 07/20/17 20:47 99 40 07/20/17 20:00 58 07/20/17 20:00 97.2 59 16 129/61 (83) 99 07/20/17 20:00 40 07/20/17 18:00 67 Laboratory Tests Test 07/20/17 05:55 07/21/17 04:52 White Blood Count 3.5 TH/MM3 2.5 TH/MM3 Red Blood Count 2.54 MIL/MM3 2.36 MIL/MM3 Hemoglobin 7.9 GM/DL 7.5 GM/DL Hematocrit 24.5 % 22.7 % Mean Corpuscular Volume 96.5 FL 96.1 FL Mean Corpuscular Hemoglobin 31.2 PG 31.6 PG Mean Corpuscular Hemoglobin Concent 32.4 % 32.8 % Red Cell Distribution Width 20.2 % 20.4 % Platelet Count 121 TH/MM3 90 TH/MM3 Mean Platelet Volume 8.8 FL 9.4 FL Neutrophils (%) (Auto) 87.3 % 82.1 % Lymphocytes (%) (Auto) 8.0 % 13.6 % Monocytes (%) (Auto) 4.5 % 3.5 % Eosinophils (%) (Auto) 0.1 % 0.3 % Basophils (%) (Auto) 0.1 % 0.5 % Neutrophils # (Auto) 3.0 TH/MM3 2.1 TH/MM3 Lymphocytes # (Auto) 0.3 TH/MM3 0.3 TH/MM3 Monocytes # (Auto) 0.2 TH/MM3 0.1 TH/MM3 Eosinophils # (Auto) 0.0 TH/MM3 0.0 TH/MM3 Basophils # (Auto) 0.0 TH/MM3 0.0 TH/MM3 CBC Comment AUTO DIFF AUTO DIFF Differential Comment AUTO DIFF CONFIRMED AUTO DIFF CONFIRMED Platelet Estimate LOW Platelet Morphology Comment NORMAL Hematology Comments Laboratory Tests Test 07/20/17 05:55 07/21/17 04:52 Blood Urea Nitrogen 60 MG/DL 56 MG/DL Creatinine 1.11 MG/DL 1.05 MG/DL Random Glucose 168 MG/DL 177 MG/DL Calcium Level 9.7 MG/DL 8.9 MG/DL Phosphorus Level 4.2 MG/DL 4.0 MG/DL Magnesium Level 2.8 MG/DL 2.4 MG/DL Sodium Level 150 MEQ/L 148 MEQ/L Potassium Level 3.8 MEQ/L 3.7 MEQ/L Chloride Level 113 MEQ/L 113 MEQ/L Carbon Dioxide Level 29.8 MEQ/L 26.4 MEQ/L Anion Gap 7 MEQ/L 9 MEQ/L Estimat Glomerular Filtration Rate 48 ML/MIN 51 ML/MIN Microbiology Date/Time Source Procedure Growth Status 07/20/17 14:00 Blood Peripheral Aerobic Blood Culture - Preliminary NO GROWTH IN 1 DAY Resulted 07/20/17 14:00 Blood Peripheral Anaerobic Blood Culture - Preliminary NO GROWTH IN 1 DAY Resulted 07/20/17 13:55 Blood Peripheral Aerobic Blood Culture - Preliminary NO GROWTH IN 1 DAY Resulted 07/20/17 13:55 Blood Peripheral Anaerobic Blood Culture - Preliminary NO GROWTH IN 1 DAY Resulted 07/20/17 10:10 Sputum Endotracheal Gram Stain - Final Resulted 07/20/17 10:10 Sputum Culture - Preliminary Gram Negative Rene Resulted IMAGING: Chest X-Ray 07/21/17 0600 Signed Impressions: Service Date/Time: Friday, July 21, 2017 03:13 - CONCLUSION: Nasogastric tube now in place with the tip below the [id number] of the radiograph. No significant interval change in bilateral pulmonary opacity. Differential diagnosis includes pulmonary edema and infection. Angelito Lovett MD Head CT 07/11/177 Signed Impressions: Service Date/Time: Tuesday, July 11, 2017 21:23 - CONCLUSION: No acute intracranial abnormality Jaden Clark MD GENERAL: Patient is in no acute distress. Look comfortable. HEENT: EOMI, No icterus. Orally intubated. NECK: Supple. LUNGS: Rhonchi and wheezing. CARDIAC: Regular rate and rhythm ABDOMEN: Soft, non tender. EXTREMITIES: No CCE. SKIN: No rash. Imaging Chest X-Ray 07/19/17 0600 Signed Impressions: Service Date/Time: July 04:24 - CONCLUSION: Persistent left lower lobe infiltrates and new opacity in the lower lateral right lung. Jasen Delvalle MD Chest X-Ray 07/19/17 0000 Signed Impressions: Service Date/Time: July 15:28 - CONCLUSION: 1. ET tube in satisfactory position. 2. Diffuse interstitial prominence suggesting congestive failure versus pneumonia. Talon Terrazas MD Chest X-Ray 07/19/17 0600 Signed Impressions: Service Date/Time: July 04:24 - CONCLUSION: Persistent left lower lobe infiltrates and new opacity in the lower lateral right lung. Jasen Delvalle MD Head CT 07/11/17 1827 Signed Impressions: Service Date/Time: Tuesday, July 11, 2017 21:23 - CONCLUSION: No acute intracranial abnormality Jaden Clark MD IMPRESSION Recurrent respiratory failure, possibly with new VAP UTI, first UC with Kleb ESBL and Citrobacter - now with C albicans Neutropenia, ?due to new infection, ?meds Obesity RECOMMENDATION Agree with repeat C/S Follow CBC Continue IV vanco Continue Diflucan Continue Zerbaxa and monitor GNR in sputum. Continue levaquin for additional GNR (Sten mal) Follow new C/S and adjust Abx Monitor progress Micah Thrasher MD Jul 21, 2017 18:06
[2017-07-21] MEDS: AMITRIPTYLINE HCL 10 MG TAB PO SCH (21:00)
[2017-07-22] VITALS (19 sets, daily range): BP systolic 100–126; BP diastolic 49–60; PULSE 55–118; RESP 16–23; TEMP 97.6–98.3; O2SAT 96–100
[2017-07-22] MEDS: RESP: ALBUTEROL 2.5 MG/IPRATROPIUM 0.5 MG NEB (SCH) NEB ×4 (03:29→21:17)
[2017-07-22] MEDS: RESP: ACETYLCYSTEINE 10% 30 ML NEB NEB SCH ×4 (03:29→21:16)
[2017-07-22] MEDS: INSULIN NovoLIN REGULAR SUPPLEMENTAL SCALE SQ SCH ×4 (04:00→22:00)
[2017-07-22] MEDS: FREE WATER G-TUBE SCH ×5 (04:00→20:00)
[2017-07-22] MEDS: CHLORHEXIDINE GLUCONATE 2 % 1 PACK (2 CLOTHS) TOP SCH (04:00)
[2017-07-22 05:05] LABS: HEMATOCRIT 21.4 % (35.0-46.0); MEAN CELL VOLUME 96.8 FL (80.0-100.0); MEAN CORPUSCULAR HEMOGLOBIN 31.2 PG (27.0-34.0); MEAN CORPUSCULAR HGB CONC 32.3 % (32.0-36.0); MEAN PLATELET VOLUME 9.4 FL (7.0-11.0); PLATELET COUNT 106 TH/MM3 (150-450); RED BLOOD COUNT 2.21 MIL/MM3 (4.00-5.30); WHITE BLOOD COUNT 4.1 TH/MM3 (4.0-11.0)
[2017-07-22 05:11] LABS: HEMOGLOBIN 6.9 GM/DL (11.6-15.3)
[2017-07-22 05:16] LABS: BICARBONATE 28.3 MEQ/L (21.0-32.0); CALCIUM 8.7 MG/DL (8.5-10.1); CREATININE 0.99 MG/DL (0.50-1.00)
[2017-07-22] MEDS: hydrALAZINE HCL 50 MG TAB PO SCH ×3 (06:00→22:00)
[2017-07-22] MEDS: PROPOFOL 1000 MG/100 ML INJ 100 ML IV PRN ×2 (06:35→16:54)
[2017-07-22] MEDS: LEVOTHYROXINE SODIUM 25 MCG TAB PO SCH (06:35)
[2017-07-22] MEDS: HEPARIN SODIUM - SQ 10,000 UNITS/ML VIAL SQ SCH ×2 (06:35→13:13)
[2017-07-22] MEDS: CEFTOLOZANE-TAZOBACTAM INJ 750 MG in SODIUM CHLORIDE 0.9% INJ 100 ML IV SCH ×2 (06:41→13:12)
[2017-07-22] MEDS ORDERED: SODIUM CHLOR 0.9% 250 ML INJ 250 ML IV ONE (08:45)
[2017-07-22] MEDS: AMIODARONE 200 MG TAB PO SCH ×2 (09:00→21:00)
[2017-07-22] MEDS: ARTIFICIAL TEARS OPTH SOLN 15 ML BTL EACH EYE SCH ×3 (10:08→18:45)
[2017-07-22] MEDS: levETIRAcetam 500 MG/5 ML UDC NG SCH (10:08)
[2017-07-22] MEDS: SODIUM CHLORIDE 0.9% FLUSH 10 ML FLUSH IV FLUSH SCH (10:08)
[2017-07-22] MEDS: HYDROCORTISONE SOD SUCCINATE 100 MG VIAL IV PUSH SCH (10:09)
[2017-07-22] MEDS: FAMOTIDINE 20 MG/2 ML VIAL IV PUSH SCH (10:09)
[2017-07-22] MEDS: FLUCONAZOLE 100 MG TAB PO SCH (10:09)
[2017-07-22] MEDS: ASCORBIC ACID 500 MG TAB PO SCH (10:10)
[2017-07-22] MEDS: GABAPENTIN 300 MG CAP PO SCH (10:10)
[2017-07-22] MEDS: DOCUSATE SODIUM 50 MG/SENNA 8.6 MG TAB PO SCH ×2 (10:10→21:00)
[2017-07-22] MEDS: ZINC SULFATE 220 MG CAP PO SCH (10:10)
[2017-07-22] MEDS: MULTIVITAMIN TAB PO SCH (10:11)
[2017-07-22] MEDS: FOLIC ACID 1 MG TAB PO SCH (10:11)
[2017-07-22] MEDS: busPIRone HCL 10 MG TAB PO SCH (10:11)
[2017-07-22] MEDS: LACTULOSE SYRUP 20 GM/30 ML CUP PO SCH ×3 (10:11→18:00)
[2017-07-22] MEDS: FERROUS SULFATE 300 MG /5ML UDC PO SCH (10:11)
[2017-07-22] MEDS: COLLAGENASE OINT 30 GM TUBE TOPICAL SCH (10:12)
[2017-07-22] MEDS: ALPRAZolam 0.5 MG TAB PO PRN (10:55)
[2017-07-22] MEDS: DEXTROSE 5% IN WATE 1000ML INJ 1,000 ML IV SCH (13:12)
--- NOTE | 2017-07-22 15:46 | HHI.IDPN ---
Note Infectious Disease Note ID COVERAGE: Patient is on the vent. Afebrile. Trach planned. Sputum culture has Enterobacter. Has little ETT secretions. Hgb decreased. Patient is a 77-year-old female, brought into the hospital for further evaluation of worsening lethargy over the last 2 days. She also was found to be hypoglycemic there was apparently a chest x-ray done in the assisted and it showed some pneumonia. Patient has been in and out of the hospital mostly at to [facility]. Looks like the last time she was tear was in June. Patient ended up getting intubated in the emergency room, and she was put on antibiotics for pneumonia, and was also found to have a urinary tract infection. A Eid was placed when she presented to the hospital. Patient was extubated about 2 days ago, and yesterday she deteriorated and ended up getting reintubated. She is afebrile. Her WBC had gone down to 3.5. She is currently awake, and breathing more comfortably. She doesn't have a lot of secretions from her endotracheal tube. Her hemodynamics are good. Infectious disease consultation has been requested to evaluate the patient with pneumonia. Past Family Social History Allergies: Coded Allergies: FRANCK Inhibitors (Verified Allergy, Unknown, 07/11/17) Vwiiwci-Bpm-Wwi Reductase Inhibitor (Verified Allergy, Unknown, 07/11/17) Past Medical History Diabetes mellitus Hypertension Arrhythmia Hypothyroidism Seizure disorder Anxiety Depression Previous UTI Arthritis Past Surgical History Abdominal surgery in April, for free air, and he had cholecystectomy and appendectomy, but no real source of free air was found Previous tracheostomy and PEG placement, removed Abdominal wound, post surgery back in April, very slow to heal Back surgery Active Ordered Medications Current Medications Zerbaxa. Diflucan Vancomycin OBJECTIVE: Vital Signs Date Time Temp Pulse Resp B/P (MAP) Pulse Ox O2 Delivery O2 Flow Rate FiO2 07/22/17 14:13 100 40 07/22/17 14:00 60 07/22/17 12:00 56 07/22/17 10:00 60 07/22/17 08:22 100 40 07/22/17 06:00 55 07/22/17 04:18 100 40 07/22/17 04:00 40 07/22/17 04:00 56 07/22/17 04:00 97.6 55 17 110/49 (69) 100 07/22/17 02:00 57 07/22/17 01:08 100 40 07/22/17 00:00 118 07/22/17 00:00 98.0 118 21 105/60 (75) 96 07/22/17 00:00 40 07/21/17 22:14 100 40 07/21/17 22:00 56 07/21/17 20:00 40 07/21/17 20:00 98.3 50 16 85/41 (56) 100 07/21/17 20:00 50 07/21/17 19:51 100 40 07/21/17 18:00 55 07/21/17 16:16 100 40 07/21/17 16:00 51 07/21/17 16:00 40 07/21/17 16:00 98.7 51 16 115/53 (73) 100 Laboratory Tests Test 07/21/17 04:52 07/22/17 04:00 White Blood Count 2.5 TH/MM3 4.1 TH/MM3 Red Blood Count 2.36 MIL/MM3 2.21 MIL/MM3 Hemoglobin 7.5 GM/DL 6.9 GM/DL Hematocrit 22.7 % 21.4 % Mean Corpuscular Volume 96.1 FL 96.8 FL Mean Corpuscular Hemoglobin 31.6 PG 31.2 PG Mean Corpuscular Hemoglobin Concent 32.8 % 32.3 % Red Cell Distribution Width 20.4 % 20.0 % Platelet Count 90 TH/MM3 106 TH/MM3 Mean Platelet Volume 9.4 FL 9.4 FL Neutrophils (%) (Auto) 82.1 % Lymphocytes (%) (Auto) 13.6 % Monocytes (%) (Auto) 3.5 % Eosinophils (%) (Auto) 0.3 % Basophils (%) (Auto) 0.5 % Neutrophils # (Auto) 2.1 TH/MM3 Lymphocytes # (Auto) 0.3 TH/MM3 Monocytes # (Auto) 0.1 TH/MM3 Eosinophils # (Auto) 0.0 TH/MM3 Basophils # (Auto) 0.0 TH/MM3 CBC Comment AUTO DIFF Differential Comment AUTO DIFF CONFIRMED Hematology Comments Laboratory Tests Test 07/21/17 04:52 07/22/17 04:00 Blood Urea Nitrogen 56 MG/DL 46 MG/DL Creatinine 1.05 MG/DL 0.99 MG/DL Random Glucose 177 MG/DL 100 MG/DL Calcium Level 8.9 MG/DL 8.7 MG/DL Phosphorus Level 4.0 MG/DL Magnesium Level 2.4 MG/DL Sodium Level 148 MEQ/L 150 MEQ/L Potassium Level 3.7 MEQ/L 3.1 MEQ/L Chloride Level 113 MEQ/L 114 MEQ/L Carbon Dioxide Level 26.4 MEQ/L 28.3 MEQ/L Anion Gap 9 MEQ/L 8 MEQ/L Estimat Glomerular Filtration Rate 51 ML/MIN 55 ML/MIN Microbiology Date/Time Source Procedure Growth Status 07/20/17 14:00 Blood Peripheral Aerobic Blood Culture - Preliminary NO GROWTH IN 2 DAYS Resulted 07/20/17 14:00 Blood Peripheral Anaerobic Blood Culture - Preliminary NO GROWTH IN 2 DAYS Resulted 07/20/17 13:55 Blood Peripheral Aerobic Blood Culture - Preliminary NO GROWTH IN 2 DAYS Resulted 07/20/17 13:55 Blood Peripheral Anaerobic Blood Culture - Preliminary NO GROWTH IN 2 DAYS Resulted 07/20/17 10:10 Sputum Endotracheal Gram Stain - Final Complete 07/20/17 10:10 Sputum Culture - Final Enterobacter Cloacae Complete IMAGING: Chest X-Ray [id number]/21/17599 Signed Impressions: Service Date/Time: Friday, July 21, 2017 03:13 - CONCLUSION: Nasogastric tube now in place with the tip below the [id number] of the radiograph. No significant interval change in bilateral pulmonary opacity. Differential diagnosis includes pulmonary edema and infection. Angelito Lovett MD Head CT [id number]/11/[id number] Signed Impressions: Service Date/Time: Tuesday, July 11, 2017 21:23 - CONCLUSION: No acute intracranial abnormality Jaden Clark MD GENERAL: Patient is in no acute distress. Look comfortable. HEENT: EOMI, No icterus. Orally intubated. NECK: Supple. LUNGS: Rhonchi and wheezing. CARDIAC: Regular rate and rhythm ABDOMEN: Soft, non tender. EXTREMITIES: No CCE. SKIN: No rash. Imaging Chest X-Ray 07/21/17599 Signed Impressions: Service Date/Time: Friday, July 21, 2017 03:13 - CONCLUSION: Nasogastric tube now in place with the tip below the riunj-he-cynd of the radiograph. No significant interval change in bilateral pulmonary opacity. Differential diagnosis includes pulmonary edema and infection. Angelito Lovett MD Chest X-Ray 07/[id number] Signed Impressions: Service Date/Time: July 04:24 - CONCLUSION: Persistent left lower lobe infiltrates and new opacity in the lower lateral right lung. Jasen Delvalle MD Chest X-Ray 07/19/17 0000 Signed Impressions: Service Date/Time: July 15:28 - CONCLUSION: 1. ET tube in satisfactory position. 2. Diffuse interstitial prominence suggesting congestive failure versus pneumonia. Talon Terrazas MD Chest X-Ray 07/19/17 0600 Signed Impressions: Service Date/Time: July 04:24 - CONCLUSION: Persistent left lower lobe infiltrates and new opacity in the lower lateral right lung. Jasen Delvalle MD Head CT 07/11/17 1827 Signed Impressions: Service Date/Time: Tuesday, July 11, 2017 21:23 - CONCLUSION: No acute intracranial abnormality Jaden Clark MD IMPRESSION Recurrent respiratory failure. VAP. Sputumculture has Enterobacter. UTI, first UC with Kleb ESBL and Citrobacter - now with C albicans Neutropenia, ?due to new infection, ?meds WBC higher. Obesity RECOMMENDATION Follow CBC Stop IV vanco Continue Diflucan Stop Zerbaxa and monitor GNR in sputum. Continue levaquin . Monitor progress Micah Thrasher MD Jul 22, 2017 15:46
--- NOTE | 2017-07-22 18:45 | HHI.CCPN ---
Subjective Remarks/Hospital Course 07/11: 77-year-old morbidly obese female patient sent in from longterm, due to increased lethargy for the last 2 days, hypoglycemia early in the day with sugars of 44, given glucagon, chest x-ray showing a pneumonia according to facility staff, EMS noted the patient was fairly disoriented, GCS 6, and started bag valve masking her because of respiratory distress and hypoxia with sats in the 87% range despite oxygenation. Patient was brought in bag-valve- mask in progress and was immediately intubated in the emergency department by ED attending. 07/12: Sedated, orally intubated on mechanical ventilation. 07/13 Patient is sedated with Fentanyl and intubated. Afebrile. 07/14 No events overnight, Sedated with Fentanyl and Versed. Afebrile. Failed CPAP trials yesterday. 07/15 No events overnight. Sedated and intubated. ABG on CPAP yesterday showed resp acidosis with PH 7.22 and CO2: 58 07/16 Patient remains sedated and intubated 07/17. No events overnight. Remains sedated and intubated 07/18 Patient remains intubated off sedation. Afebrile. 07/19 Patient s/p extubation yesterday on BIPAP overnight. Awake. ABG last night showed resp acidosis with PH: 7.24, pCO2: 66 07/20 Patient was reintubated yesterday for resp failure. Sedated and intubated. Afebrile. 07/21: new HCAP with GNRs in sputum. persistent respiratory failure. likely will require long-term ventilation and slow wean. will consult general surgery for re-do trach and gastric access. 07/22: no changes. no improvements. gen surgery planning PEG/Trach next week. Objective Vital Signs Date Time Temp Pulse Resp B/P (MAP) Pulse Ox O2 Delivery O2 Flow Rate FiO2 07/22/17 16:08 100 40 07/22/17 14:00 60 07/22/17 04:00 97.6 17 110/49 (69) 07/18/17 22:33 Nasal Cannula 2.00 Intake and Output 07/22/17 07/22/17 07/23/17 08:00 16:00 00:00 Output Total 800 ml Balance -800 ml Result Diagram: 07/22/17 0400 07/22/17 0400 Other Results Microbiology Date/Time Source Procedure Growth Status 07/20/17 10:10 Sputum Endotracheal Gram Stain - Final Complete 07/20/17 10:10 Sputum Culture - Final Enterobacter Cloacae Complete Imaging Last Impressions Chest X-Ray 07/19/17 0600 Signed Impressions: Service Date/Time: July 04:24 - CONCLUSION: Persistent left lower lobe infiltrates and new opacity in the lower lateral right lung. Jasen Delvalle MD Head CT 07/11/17 1827 Signed Impressions: Service Date/Time: Tuesday, July 11, 2017 21:23 - CONCLUSION: No acute intracranial abnormality Jaden Clark MD Objective Remarks GENERAL: Morbidly obese elderly female intubated. SKIN: Warm and dry. HEAD: Normocephalic. EYES: No scleral icterus. No injection or drainage. NECK: Supple, trachea midline. large neck circumference prevents assessment of jvd. small ulcerated area from prior trach site. CARDIOVASCULAR: Regular rate and rhythm. RESPIRATORY: Orally intubated on mechanical ventilation. GASTROINTESTINAL: Abdomen soft, non-tender, nondistended. left non-healing ulcer area from prior PEG site. MUSCULOSKELETAL: No cyanosis, or edema. NEURO EXAM: RASS -2. sedated. follows commands. A/P Assessment and Plan Assessment: 77yF with morbid obesity and recurrent healthcare associated pneumonia and hypoxic respiratory failure. will require trach and longer weaning. this is a recurrent trach from prolonged illness in the last 3 months- may not do well long-term. Plan Neuro: metabolic encephalopathy Seizure disorder Neuropathy On Diprivan infusion for sedation. Daily sedation vacation. Monitor neuro status. On Keppra 500mg Q12 Pulm: Acute hypoxic and hypercarbic Respiratory failure Recurrent healthcare associated pneumonia Reintubated 07/19 Continue with vent support keep sat >92% Bronchodilators, ICU vent bundle. SBT daily as lisa HC 25mg Q12. CV: History of hypertension On Hydralazine 50mg Q8-Monitor HR and BP keep MAP>65mmHg Amiodarone 200mg BID Check 2D echo to eval LV function : Acute kidney injury Free water deficit Monitor renal function, electrolytes replacement as needed. Renal function continue to improve increase free water to 300mL q4h. GI: Morbid Obesity Acute protein calorie malnutrition- moderate On Glucerna 1.5@65ml/hr, On roly Colace, Lactulose for bowel regimen ICU electrolyte protocol ID: Recurrent HCAP pneumonia Urinary tract infection Continue Imipenem, Diflucan, monitor for signs of infections ( Fever, WBC) Give Vanco x 1 dose Urine cx: 07/11: Kleb ESBL, Citrobacter. Repeat urine cx 07/18 - Kirsten Albicans Check sputum cx, strep pneumonia and Legionella urinary Ag negative on 07/11.. ID eval. Heme: Anemia secondary to chronic disease Monitor CBC, on Ferrous sulfate and Folic acid Hep PLT ab -negative Endo: Hypothyroidism Hyperglycemia of Critical illness SSI medium scale for glycemic control GI prophylaxis- on Pepcid DVT prophylaxis- Heparin SQ Rafael Wilson MD Jul 22, 2017 18:44
[2017-07-22] MEDS: AMITRIPTYLINE HCL 10 MG TAB PO SCH (21:00)
[2017-07-23] VITALS (18 sets, daily range): BP systolic 118–142; BP diastolic 55–63; PULSE 52–84; RESP 16–24; TEMP 97–98.2; O2SAT 95–100
[2017-07-23] MEDS: PROPOFOL 1000 MG/100 ML INJ 100 ML IV PRN ×4 (00:55→23:39)
[2017-07-23] MEDS: levETIRAcetam 500 MG/5 ML UDC NG SCH ×3 (00:55→20:29)
[2017-07-23] MEDS: FAMOTIDINE 20 MG/2 ML VIAL IV PUSH SCH ×3 (00:55→20:27)
[2017-07-23] MEDS: busPIRone HCL 10 MG TAB PO SCH ×3 (00:55→20:38)
[2017-07-23] MEDS: HEPARIN SODIUM - SQ 10,000 UNITS/ML VIAL SQ SCH ×4 (00:56→20:36)
[2017-07-23] MEDS: ASCORBIC ACID 500 MG TAB PO SCH ×3 (00:56→20:31)
[2017-07-23] MEDS: FERROUS SULFATE 300 MG /5ML UDC PO SCH ×3 (00:56→20:36)
[2017-07-23] MEDS: CHLORHEXIDINE GLUCONATE 2 % 1 PACK (2 CLOTHS) TOP SCH (00:57)
[2017-07-23] MEDS: SODIUM CHLORIDE 0.9% FLUSH 10 ML FLUSH IV FLUSH SCH ×3 (00:58→20:29)
[2017-07-23] MEDS: FREE WATER G-TUBE SCH ×7 (04:00→23:39)
[2017-07-23] MEDS: INSULIN NovoLIN REGULAR SUPPLEMENTAL SCALE SQ SCH ×4 (04:00→22:00)
[2017-07-23] MEDS: RESP: ACETYLCYSTEINE 10% 30 ML NEB NEB SCH ×5 (04:40→20:36)
[2017-07-23] MEDS: RESP: ALBUTEROL 2.5 MG/IPRATROPIUM 0.5 MG NEB (SCH) NEB ×4 (04:40→20:36)
[2017-07-23 05:09] LABS: HEMATOCRIT 23.2 % (35.0-46.0); HEMOGLOBIN 7.8 GM/DL (11.6-15.3); MEAN CELL VOLUME 96.8 FL (80.0-100.0); MEAN CORPUSCULAR HEMOGLOBIN 32.4 PG (27.0-34.0); MEAN CORPUSCULAR HGB CONC 33.5 % (32.0-36.0); MEAN PLATELET VOLUME 9.5 FL (7.0-11.0); PLATELET COUNT 117 TH/MM3 (150-450); RED CELL DISTRIBUTION WIDTH 19.1 % (11.6-17.2); WHITE BLOOD COUNT 5.2 TH/MM3 (4.0-11.0)
[2017-07-23 05:41] LABS: BICARBONATE 26.5 MEQ/L (21.0-32.0); CALCIUM 8.5 MG/DL (8.5-10.1); CREATININE 1.04 MG/DL (0.50-1.00)
[2017-07-23] MEDS: hydrALAZINE HCL 50 MG TAB PO SCH ×3 (06:00→20:32)
[2017-07-23] MEDS: LEVOTHYROXINE SODIUM 25 MCG TAB PO SCH (06:15)
[2017-07-23] MEDS: DEXTROSE 5% IN WATE 1000ML INJ 1,000 ML IV SCH ×2 (08:34→23:44)
[2017-07-23] MEDS: ARTIFICIAL TEARS OPTH SOLN 15 ML BTL EACH EYE SCH ×3 (09:19→17:08)
[2017-07-23] MEDS: COLLAGENASE OINT 30 GM TUBE TOPICAL SCH (09:19)
[2017-07-23] MEDS: GABAPENTIN 300 MG CAP PO SCH (09:20)
[2017-07-23] MEDS: FOLIC ACID 1 MG TAB PO SCH (09:20)
[2017-07-23] MEDS: HYDROCORTISONE SOD SUCCINATE 100 MG VIAL IV PUSH SCH (09:20)
[2017-07-23] MEDS: LACTULOSE SYRUP 20 GM/30 ML CUP PO SCH ×3 (09:20→17:08)
[2017-07-23] MEDS: MULTIVITAMIN TAB PO SCH (09:20)
[2017-07-23] MEDS: DOCUSATE SODIUM 50 MG/SENNA 8.6 MG TAB PO SCH ×2 (09:20→20:27)
[2017-07-23] MEDS: ZINC SULFATE 220 MG CAP PO SCH (09:21)
[2017-07-23] MEDS: AMIODARONE 200 MG TAB PO SCH ×2 (09:21→20:26)
[2017-07-23] MEDS: FLUCONAZOLE 100 MG TAB PO SCH (09:21)
[2017-07-23] MEDS: SODIUM CHLORIDE 0.9% FLUSH 10 ML FLUSH IV FLUSH PRN (09:22)
[2017-07-23] MEDS: POTASSIUM CHLOR 20 MEQ PREMIX 100 ML IV PRN ×2 (09:25→12:24)
[2017-07-23] MEDS: oxyCODONE HCL ORAL CONC 5 MG/0.25 ML SYRINGE PO PRN ×2 (12:25→21:04)
--- NOTE | 2017-07-23 13:06 | HHI.IDPN ---
Subjective Subjective Remarks Patient is a 77-year-old female, brought into the hospital for further evaluation of worsening lethargy over the last 2 days. She also was found to be hypoglycemic there was apparently a [facility]-ray done in the [facility] and it showed some pneumonia. Patient has been in and out of the [facility] Looks like the last time she was tear was in June. Patient ended up getting intubated in the emergency room, and she was put on antibiotics for pneumonia, and was also found to have a urinary tract infection. A Eid was placed when she presented to the hospital. Patient was extubated about 2 days ago, and yesterday she deteriorated and ended up getting reintubated. She is afebrile. Her WBC had gone down to 3.5. She is currently awake, and breathing more comfortably. She doesn't have a lot of secretions from her endotracheal tube. Her hemodynamics are good. Infectious disease consultation has been requested to evaluate the patient with pneumonia. Notes reviewed Temps ok BP ok Sputum C/S with Enterobacter LAst UC with C albicans Antibiotics Current Medications Zerbaxa - D/C 07/22 Diflucan Medications (Trade) Dose Ordered Sig/Kerri Route Start Time Stop Time Status Last Admin (NS Flush) 2 ml UNSCH PRN IV FLUSH 07/11/17 19:15 07/23/17 09:22 (NS Flush) 2 ml BID IV FLUSH 07/11/17 21:00 07/23/17 09:22 (Tylenol) 650 mg Q6H PRN PO 07/11/17 19:15 (Tears Naturale Opth Soln) 1 drop TID EACH EYE 07/12/17 09:00 07/23/17 12:25 (Zofran Inj) 4 mg Q6H PRN IV PUSH 07/11/17 19:15 (Heparin Inj) 5,000 units Q8H SQ 07/11/17 21:00 07/23/17 12:25 Miscellaneous Information 1 Q361D XX 07/11/17 19:15 07/11/17 19:15 (Chlorhexidine 2% Cloth) Taper DAILY@04 TOP 07/12/17 04:00 07/08/18 03:59 07/23/17 00:57 (Chlorhexidine 2% Cloth) 3 pack UNSCH PRN TOP 07/11/17 19:15 (Mare-Colace) 1 tab BID PO 07/11/17 21:00 07/23/17 09:20 (Milk Of Magnesia Liq) 30 ml Q12H PRN PO 07/11/17 19:15 (Senokot) 17.2 mg Q12H PRN PO 07/11/17 19:15 (Dulcolax Supp) 10 mg DAILY PRN RECTAL 07/11/17 19:15 (Xanax) 0.5 mg Q6H PRN PO 07/11/17 20:15 07/22/17 10:55 (Cordarone) 200 mg BID PO 07/11/17 21:00 07/23/17 09:21 (Elavil) 10 mg HS PO 07/11/17 21:00 07/20/17 19:41 (Vitamin C) 500 mg BID PO 07/11/17 21:00 07/23/17 09:20 (Buspar) 10 mg BID PO 07/11/17 21:00 07/23/17 09:20 (Santyl Oint) 1 applic DAILY TOPICAL 07/12/17 09:00 07/23/17 09:19 (Folate) 1 mg DAILY PO 07/12/17 09:00 07/23/17 09:20 (Synthroid) 25 mcg DAILY@0600 PO 07/12/17 06:00 07/23/17 06:15 (Zinc Sulfate) 220 mg DAILY PO 07/12/17 09:00 07/23/17 09:21 (Theragran) 1 tab DAILY PO 07/12/17 09:00 07/23/17 09:20 (Ativan Inj) 2 mg Q2H PRN IV PUSH 07/12/17 09:30 07/21/17 18:05 (Keppra Liq) 500 mg Q12HR NG 07/12/17 13:00 07/23/17 09:19 (Ferrous Sulfate Liq) 300 mg BID PO 07/12/17 13:00 07/23/17 09:20 (Neurontin) 600 mg DAILY PO 07/13/17 09:00 07/23/17 09:20 (Pepcid Inj) 10 mg Q12HR IV PUSH 07/12/17 21:00 07/23/17 09:21 (Lactulose Liq) 30 ml TID PO 07/14/17 13:00 07/23/17 12:24 (Apresoline) 50 mg Q8HR PO 07/18/17 08:45 07/23/17 12:25 (Apresoline Inj) 10 mg Q6H PRN IV PUSH 07/18/17 09:00 07/19/17 05:37 (Duoneb Neb) 1 ampule Q2HR NEB PRN NEB 07/18/17 14:45 07/19/17 00:33 (D50w (Vial) Inj) 50 ml UNSCH PRN IV PUSH 07/19/17 08:30 (Glucagon Inj) 1 mg UNSCH PRN OTHER 07/19/17 08:30 (NovoLIN R SUPPLEMENTAL SCALE) 1 Q6H SQ 07/19/17 10:00 07/21/17 10:00 Propofol 100 ml @ 4.53 mls/hr TITRATE PRN IV 07/19/17 15:30 07/23/17 09:47 (Diflucan) 100 mg DAILY PO 07/19/17 17:30 07/23/17 09:21 (Free Water) VOLUME OF WATER: ( 300 ) ML Q4HR G-TUBE 07/21/17 16:00 07/23/17 12:00 (SoluCORTEF INJ) 25 mg DAILY IV PUSH 07/22/17 09:00 07/23/17 09:20 (Mag-Ox) 800 mg UNSCH PRN PO 07/21/17 14:45 Magnesium Sulfate 4 gm/Sodium Chloride 100 ml @ 50 mls/hr UNSCH PRN IV 07/21/17 14:45 Magnesium Sulfate 2 gm/Sodium Chloride 100 ml @ 50 mls/hr UNSCH PRN IV 07/21/17 14:45 Potassium Chloride 100 ml @ 50 mls/hr Q2H PRN IV 07/21/17 14:45 07/23/17 12:24 Potassium Chloride 100 ml @ 50 mls/hr Q2H PRN IV 07/21/17 14:45 Potassium Chloride 100 ml @ 50 mls/hr Q2H PRN IV 07/21/17 14:45 Potassium Chloride 100 ml @ 25 mls/hr UNSCH PRN IV 07/21/17 14:45 (K-Phos) 2,000 mg Q4H PRN PO 07/21/17 14:45 (K-Phos) 2,000 mg UNSCH PRN PO/TUBE 07/21/17 14:45 Potassium Phosphate 30 mmol/ Sodium Chloride 260 ml @ 42 mls/hr UNSCH PRN IV 07/21/17 14:45 Sodium Phosphate 30 mmol/Sodium Chloride 250 ml @ 42 mls/hr UNSCH PRN IV 07/21/17 14:45 (Duoneb Neb) 1 ampule Q6HR NEB NEB 07/22/17 10:00 07/23/17 08:14 Dextrose 1,000 ml @ 42 mls/hr [id number] IV 07/22/17 08:45 07/22/17 13:12 (Mucomyst 10% Neb) 2 ml Q6HR NEB NEB 07/23/17 11:00 (Roxicodone Intensol Liq) 10 mg Q4H PRN PO 07/23/17 10:00 07/23/17 12:25 Past Medical History Diabetes mellitus Hypertension Arrhythmia Hypothyroidism Seizure disorder Anxiety Depression Previous UTI Arthritis Past Surgical History Abdominal surgery in April, for free air, and he had cholecystectomy and appendectomy, but no real source of free air was found Previous tracheostomy and PEG placement, removed Abdominal wound, post surgery back in April, very slow to heal Back surgery Allergies: Coded Allergies: FRANCK Inhibitors (Verified Allergy, Unknown, 07/11/17) Andnxcl-Jrh-Rmx Reductase Inhibitor (Verified Allergy, Unknown, 07/11/17) Objective . Vital Signs Date Time Temp Pulse Resp B/P (MAP) Pulse Ox O2 Delivery O2 Flow Rate FiO2 07/23/17 12:00 40 07/23/17 12:00 97.1 62 16 126/58 (80) 96 07/23/17 12:00 62 07/23/17 11:13 99 40 07/23/17 10:00 61 07/23/17 08:14 99 40 07/23/17 08:00 97.4 67 20 118/55 (76) 100 07/23/17 08:00 67 07/23/17 08:00 40 07/23/17 06:00 64 07/23/17 04:41 100 40 07/23/17 04:00 40 07/23/17 04:00 63 07/23/17 04:00 98.2 63 16 129/62 (84) 100 07/23/17 02:00 61 07/23/17 00:58 100 40 07/23/17 00:00 40 07/23/17 00:00 97.9 66 24 127/61 (83) 100 07/23/17 00:00 66 07/22/17 22:00 62 07/22/17 21:17 100 40 07/22/17 20:09 97.9 64 23 125/57 100 07/22/17 20:00 98.3 62 16 125/57 (79) 100 07/22/17 20:00 40 07/22/17 20:00 62 07/22/17 18:00 62 07/22/17 16:08 100 40 07/22/17 16:00 40 07/22/17 16:00 97.9 65 23 126/58 (80) 99 07/22/17 16:00 65 07/22/17 14:13 100 40 07/22/17 14:00 60 07/23/17 07/23/17 07/24/17 15:00 23:00 07:00 Intake Total 109 ml Balance 109 ml Intake IV Total 109 ml . Laboratory Tests Test 07/22/17 04:00 07/23/17 03:50 White Blood Count 4.1 TH/MM3 5.2 TH/MM3 Red Blood Count 2.21 MIL/MM3 2.40 MIL/MM3 Hemoglobin 6.9 GM/DL 7.8 GM/DL Hematocrit 21.4 % 23.2 % Mean Corpuscular Volume 96.8 FL 96.8 FL Mean Corpuscular Hemoglobin 31.2 PG 32.4 PG Mean Corpuscular Hemoglobin Concent 32.3 % 33.5 % Red Cell Distribution Width 20.0 % 19.1 % Platelet Count 106 TH/MM3 117 TH/MM3 Mean Platelet Volume 9.4 FL 9.5 FL Laboratory Tests Test 07/22/17 04:00 07/23/17 03:50 Blood Urea Nitrogen 46 MG/DL 40 MG/DL Creatinine 0.99 MG/DL 1.04 MG/DL Random Glucose 100 MG/DL 98 MG/DL Calcium Level 8.7 MG/DL 8.5 MG/DL Sodium Level 150 MEQ/L 148 MEQ/L Potassium Level 3.1 MEQ/L 3.4 MEQ/L Chloride Level 114 MEQ/L 112 MEQ/L Carbon Dioxide Level 28.3 MEQ/L 26.5 MEQ/L Anion Gap 8 MEQ/L 10 MEQ/L Estimat Glomerular Filtration Rate 55 ML/MIN 52 ML/MIN Microbiology Date/Time Source Procedure Growth Status 07/20/17 14:00 Blood Peripheral Aerobic Blood Culture - Preliminary NO GROWTH IN 3 DAYS Resulted 07/20/17 14:00 Blood Peripheral Anaerobic Blood Culture - Preliminary NO GROWTH IN 3 DAYS Resulted 07/20/17 13:55 Blood Peripheral Aerobic Blood Culture - Preliminary NO GROWTH IN 3 DAYS Resulted 07/20/17 13:55 Blood Peripheral Anaerobic Blood Culture - Preliminary NO GROWTH IN 3 DAYS Resulted Imaging Chest X-Ray 07/21/17 0600 Signed Impressions: Service Date/Time: Friday, July 21, 2017 03:13 - CONCLUSION: Nasogastric tube now in place with the tip below the [id number] of the radiograph. No significant interval change in bilateral pulmonary opacity. Differential diagnosis includes pulmonary edema and infection. Angelito Lovett MD Head CT 07/11/17 1827 Signed Impressions: Service Date/Time: Tuesday, July 11, 2017 21:23 - CONCLUSION: No acute intracranial abnormality Jaden Clark MD Physical Exam GENERAL: intubated, awake and alert, not in respiratory distress. SKIN: Cool and dry. Edematous, has ecchymoses in both UE, no generalized rash HEAD: Atraumatic. Normocephalic. No temporal wasting, or tenderness. EYES: [place] conjunctiva. No petechia or hemorrhage. Pupils equal, round and reactive to light. Extraocular movements full and intact. No scleral icterus. No injection or drainage. EARS, NOSE AND THROAT: Nose without bleeding or purulent nasal discharge. No sinus tenderness. She is orally intubated. Moist oral mucosa. NECK: Trachea midline. Supple and not tender, no meningeal signs CARDIOVASCULAR: Regular rate and rhythm. Soft heart sounds. No murmurs, rubs or gallops heard RESPIRATORY: Diffuse rhonchi bilaterally. ABDOMEN: Soft, obese, non-tender, nondistended. Bowel sounds present and normoactive. No guarding. No rebound. No organomegaly. There is an open wound on R side that is about 4 x 3 inches long with some slough, no surrounding erythema or induration EXTREMITIES: No clubbing, cyanosis, or edema.No joint effusion, has good ROM. No calf tenderness. Well perfused and warm. NEUROLOGICAL: Awake and alert. No facial asymmetry. Motor grossly within normal limits. PSYCHIATRIC: calm and cooperative. LINE: No evidence of infection Assessment & Plan Remarks IMPRESSION Recurrent respiratory failure, possibly with new VAP - C/S Enterobacter UTI, first UC with Kleb ESBL and Citrobacter - now with C albicans Neutropenia, ?due to new infection, ?meds - better Obesity RECOMMENDATION IV cefepime to cover Enterobacter Continue Diflucan Monitor progress Weaning per CCM Xochilt Woods MD Jul 23, 2017 13:06
[2017-07-23] MEDS ORDERED: ALBUMIN 25% INJ 100 ML IV ONE (14:00)
[2017-07-23] MEDS ORDERED: FUROSEMIDE 100 MG/10 ML VIAL IV PUSH ONE (14:00)
--- NOTE | 2017-07-23 14:03 | HHI.CCPN ---
Subjective Remarks/Hospital Course 07/11: 77-year-old morbidly obese female patient sent in from senior living, due to increased lethargy for the last 2 days, hypoglycemia early in the day with sugars of 44, given glucagon, chest x-ray showing a pneumonia according to facility staff, EMS noted the patient was fairly disoriented, GCS 6, and started bag valve masking her because of respiratory distress and hypoxia with sats in the 87% range despite oxygenation. Patient was brought in bag-valve- mask in progress and was immediately intubated in the emergency department by ED attending. 07/12: Sedated, orally intubated on mechanical ventilation. 07/13 Patient is sedated with Fentanyl and intubated. Afebrile. 07/14 No events overnight, Sedated with Fentanyl and Versed. Afebrile. Failed CPAP trials yesterday. 07/15 No events overnight. Sedated and intubated. ABG on CPAP yesterday showed resp acidosis with PH 7.22 and CO2: 58 07/16 Patient remains sedated and intubated 07/17. No events overnight. Remains sedated and intubated 07/18 Patient remains intubated off sedation. Afebrile. 07/19 Patient s/p extubation yesterday on BIPAP overnight. Awake. ABG last night showed resp acidosis with PH: 7.24, pCO2: 66 07/20 Patient was reintubated yesterday for resp failure. Sedated and intubated. Afebrile. 07/21: new HCAP with GNRs in sputum. persistent respiratory failure. likely will require long-term ventilation and slow wean. will consult general surgery for re-do trach and gastric access. 07/22: no changes. no improvements. gen surgery planning PEG/Trach next week. 07/23: sputum growing enterobacter; now on Cefepime per ID. neuro exam still stable, but fails weaning trials quickly. Objective Vital Signs Date Time Temp Pulse Resp B/P (MAP) Pulse Ox O2 Delivery O2 Flow Rate FiO2 07/23/17 13:46 16 07/23/17 12:00 40 07/23/17 12:00 97.1 62 126/58 (80) 96 Intake and Output 07/23/17 07/23/17 07/24/17 08:00 16:00 00:00 Intake Total 733 ml 109 ml Balance 733 ml 109 ml Result Diagram: 07/23/17 0350 07/23/17 0350 Imaging Last Impressions Chest X-Ray 07/19/17 0600 Signed Impressions: Service Date/Time: July 04:24 - CONCLUSION: Persistent left lower lobe infiltrates and new opacity in the lower lateral right lung. Jasen Delvalle MD Head CT 07/11/17 1827 Signed Impressions: Service Date/Time: Tuesday, July 11, 2017 21:23 - CONCLUSION: No acute intracranial abnormality Jaden Clark MD Objective Remarks GENERAL: Morbidly obese elderly female intubated. SKIN: Warm and dry. HEAD: Normocephalic. EYES: No scleral icterus. No injection or drainage. NECK: trachea midline. large neck circumference prevents assessment of jvd. small ulcerated area from prior trach site. CARDIOVASCULAR: Regular rate and rhythm. RESPIRATORY: Orally intubated on mechanical ventilation. GASTROINTESTINAL: Abdomen soft, non-tender, nondistended. left non-healing ulcer area from prior PEG site. MUSCULOSKELETAL: No cyanosis, or edema. NEURO EXAM: RASS -2. sedated. follows commands. A/P Assessment and Plan Assessment: 77yF with morbid obesity and recurrent healthcare associated pneumonia and hypoxic respiratory failure. will require trach and longer weaning. this is a recurrent trach from prolonged illness in the last 3 months- may not do well long-term. Plan Neuro: metabolic encephalopathy Seizure disorder Neuropathy On Diprivan infusion for sedation. Daily sedation vacation. Monitor neuro status. On Keppra 500mg Q12 add oxycodone 10mg po q4h prn for pain. Pulm: Acute hypoxic and hypercarbic Respiratory failure Recurrent healthcare associated pneumonia Reintubated 07/19 Continue with vent support keep sat >92% Bronchodilators, ICU vent bundle. SBT daily as lisa d/c hydrocortisone. CV: History of hypertension On Hydralazine 50mg Q8-Monitor HR and BP keep MAP>65mmHg Amiodarone 200mg BID 2d echo 07/20: normal biventricular function, EF 60%, RVSP 47 mmHg. : Acute kidney injury - improving. Free water deficit Monitor renal function, electrolytes replacement as needed. Renal function continue to improve free water to 300mL q4h. d5w @ 42mL lasix 80mg iv x 1 with 25% albumin 25gm x 1. GI: Morbid Obesity Acute protein calorie malnutrition- moderate On Glucerna 1.5@65ml/hr, On roly Colace, Lactulose for bowel regimen ICU electrolyte protocol ID: Recurrent HCAP pneumonia Urinary tract infection Continue Diflucan, cefepime. Urine cx: 07/11: Kleb ESBL, Citrobacter. Repeat urine cx 07/18 - Kirsten Albicans sputum cx: enterobacter ID following. Heme: Anemia secondary to chronic disease Monitor CBC, on Ferrous sulfate and Folic acid Hep PLT ab -negative Endo: Hypothyroidism Hyperglycemia of Critical illness SSI medium scale for glycemic control GI prophylaxis- on Pepcid DVT prophylaxis- Heparin SQ Rafael Wilson MD Jul 23, 2017 14:02
[2017-07-23] MEDS: CEFEPIME INJ 2,000 MG in SODIUM CHLORIDE 0.9% INJ 100 ML IV SCH ×2 (14:31→20:32)
[2017-07-23] MEDS: ALPRAZolam 0.5 MG TAB PO PRN (14:32)
[2017-07-23] MEDS: AMITRIPTYLINE HCL 10 MG TAB PO SCH (20:30)
[2017-07-24] VITALS (17 sets, daily range): BP systolic 85–112; BP diastolic 43–54; PULSE 47–76; RESP 16–17; TEMP 96.4–98; O2SAT 98–100
[2017-07-24] MEDS: FREE WATER G-TUBE SCH ×5 (04:00→20:00)
[2017-07-24] MEDS: INSULIN NovoLIN REGULAR SUPPLEMENTAL SCALE SQ SCH ×4 (04:00→22:00)
[2017-07-24] MEDS: RESP: ALBUTEROL 2.5 MG/IPRATROPIUM 0.5 MG NEB (SCH) NEB ×4 (04:21→21:21)
[2017-07-24] MEDS: RESP: ACETYLCYSTEINE 10% 30 ML NEB NEB SCH ×4 (04:21→21:21)
[2017-07-24] MEDS: PROPOFOL 1000 MG/100 ML INJ 100 ML IV PRN ×2 (04:55→20:48)
[2017-07-24] MEDS: LEVOTHYROXINE SODIUM 25 MCG TAB PO SCH (06:00)
[2017-07-24] MEDS: CEFEPIME INJ 2,000 MG in SODIUM CHLORIDE 0.9% INJ 100 ML IV SCH ×3 (06:01→20:47)
[2017-07-24] MEDS: oxyCODONE HCL ORAL CONC 5 MG/0.25 ML SYRINGE PO PRN (06:05)
[2017-07-24] MEDS: HEPARIN SODIUM - SQ 10,000 UNITS/ML VIAL SQ SCH ×2 (06:06→13:06)
[2017-07-24] MEDS: hydrALAZINE HCL 50 MG TAB PO SCH ×3 (06:06→22:00)
[2017-07-24 07:03] LABS: HEMATOCRIT 23.9 % (35.0-46.0); MEAN CELL VOLUME 95.5 FL (80.0-100.0); MEAN CORPUSCULAR HEMOGLOBIN 31.9 PG (27.0-34.0); MEAN CORPUSCULAR HGB CONC 33.3 % (32.0-36.0); MEAN PLATELET VOLUME 9.3 FL (7.0-11.0); PLATELET COUNT 134 TH/MM3 (150-450); RED CELL DISTRIBUTION WIDTH 18.7 % (11.6-17.2); WHITE BLOOD COUNT 4.7 TH/MM3 (4.0-11.0)
[2017-07-24 07:15] LABS: BICARBONATE 26.7 MEQ/L (21.0-32.0); CALCIUM 8.8 MG/DL (8.5-10.1); CREATININE 1.04 MG/DL (0.50-1.00)
[2017-07-24] MEDS: MULTIVITAMIN TAB PO SCH (09:00)
[2017-07-24] MEDS: FERROUS SULFATE 300 MG /5ML UDC PO SCH ×2 (09:02→20:46)
[2017-07-24] MEDS: FOLIC ACID 1 MG TAB PO SCH (09:02)
[2017-07-24] MEDS: AMIODARONE 200 MG TAB PO SCH ×2 (09:02→21:00)
[2017-07-24] MEDS: levETIRAcetam 500 MG/5 ML UDC NG SCH ×2 (09:02→20:46)
[2017-07-24] MEDS: LACTULOSE SYRUP 20 GM/30 ML CUP PO SCH ×4 (09:02→16:31)
[2017-07-24] MEDS: DOCUSATE SODIUM 50 MG/SENNA 8.6 MG TAB PO SCH ×2 (09:03→20:46)
[2017-07-24] MEDS: ASCORBIC ACID 500 MG TAB PO SCH ×2 (09:03→20:46)
[2017-07-24] MEDS: ARTIFICIAL TEARS OPTH SOLN 15 ML BTL EACH EYE SCH ×3 (09:03→17:30)
[2017-07-24] MEDS: GABAPENTIN 300 MG CAP PO SCH (09:03)
[2017-07-24] MEDS: FAMOTIDINE 20 MG/2 ML VIAL IV PUSH SCH ×2 (09:03→20:46)
[2017-07-24] MEDS: FLUCONAZOLE 100 MG TAB PO SCH (09:03)
[2017-07-24] MEDS: busPIRone HCL 10 MG TAB PO SCH ×2 (09:03→20:46)
[2017-07-24] MEDS: ZINC SULFATE 220 MG CAP PO SCH (09:03)
[2017-07-24] MEDS: COLLAGENASE OINT 30 GM TUBE TOPICAL SCH (09:04)
[2017-07-24] MEDS: SODIUM CHLORIDE 0.9% FLUSH 10 ML FLUSH IV FLUSH SCH ×2 (09:04→20:47)
[2017-07-24] MEDS ORDERED: DIATRIZOATE MEGLUM/DIATRIZOATE SOD 9 ML CUP PO ONE (09:30)
[2017-07-24] MEDS ORDERED: POTASSIUM CHLORIDE 25 MEQ EFFERVESCENT TAB PO PRN (10:15)
--- NOTE | 2017-07-24 14:12 | HHI.IDPN ---
Subjective Subjective Remarks Patient is a 77-year-old female, brought into the hospital for further evaluation of worsening lethargy over the last 2 days. She also was found to be hypoglycemic there was apparently a chest x-ray done in the [facility] and it showed some pneumonia. Patient has been in and out of the hospital mostly at [address] [place] [address]. Looks like the last time she was tear was in June. Patient ended up getting intubated in the emergency room, and she was put on antibiotics for pneumonia, and was also found to have a urinary tract infection. A Eid was placed when she presented to the hospital. Patient was extubated about 2 days ago, and yesterday she deteriorated and ended up getting reintubated. She is afebrile. Her WBC had gone down to 3.5. She is currently awake, and breathing more comfortably. She doesn't have a lot of secretions from her endotracheal tube. Her hemodynamics are good. Infectious disease consultation has been requested to evaluate the patient with pneumonia. Notes reviewed Temps ok On the vent Not weaning BP ok Sputum C/S with Enterobacter LAst UC with C albicans Antibiotics Current Medications Cefepime Diflucan Medications (Trade) Dose Ordered Sig/Kerri Route Start Time Stop Time Status Last Admin (NS Flush) 2 ml UNSCH PRN IV FLUSH 07/11/17 19:15 07/23/17 09:22 (NS Flush) 2 ml BID IV FLUSH 07/11/17 21:00 07/24/17 09:04 (Tylenol) 650 mg Q6H PRN PO 07/11/17 19:15 (Tears Naturale Opth Soln) 1 drop TID EACH EYE 07/12/17 09:00 07/24/17 13:07 (Zofran Inj) 4 mg Q6H PRN IV PUSH 07/11/17 19:15 (Heparin Inj) 5,000 units Q8H SQ 07/11/17 21:00 07/24/17 13:06 Miscellaneous Information 1 Q361D XX 07/11/17 19:15 07/11/17 19:15 (Chlorhexidine 2% Cloth) Taper DAILY@04 TOP 07/12/17 04:00 07/08/18 03:59 07/23/17 00:57 (Chlorhexidine 2% Cloth) 3 pack UNSCH PRN TOP 12/6/17 19:15 (Mare-Colace) 1 tab BID PO 07/11/17 21:00 07/24/17 09:03 (Milk Of Magnesia Liq) 30 ml Q12H PRN PO 07/11/17 19:15 (Senokot) 17.2 mg Q12H PRN PO 07/11/17 19:15 (Dulcolax Supp) 10 mg DAILY PRN RECTAL 07/11/17 19:15 (Xanax) 0.5 mg Q6H PRN PO 07/11/17 20:15 07/23/17 14:32 (Cordarone) 200 mg BID PO 07/11/17 21:00 07/24/17 09:02 (Elavil) 10 mg HS PO 07/11/17 21:00 07/23/17 20:30 (Vitamin C) 500 mg BID PO 07/11/17 21:00 07/24/17 09:03 (Buspar) 10 mg BID PO 07/11/17 21:00 07/24/17 09:03 (Santyl Oint) 1 applic DAILY TOPICAL 07/12/17 09:00 07/24/17 09:04 (Folate) 1 mg DAILY PO 07/12/17 09:00 07/24/17 09:02 (Synthroid) 25 mcg DAILY@0600 PO 07/12/17 06:00 07/24/17 06:00 (Zinc Sulfate) 220 mg DAILY PO 07/12/17 09:00 07/24/17 09:03 (Theragran) 1 tab DAILY PO 07/12/17 09:00 07/24/17 09:00 (Keppra Liq) 500 mg Q12HR NG 07/12/17 13:00 07/24/17 09:02 (Ferrous Sulfate Liq) 300 mg BID PO 07/12/17 13:00 07/24/17 09:02 (Neurontin) 600 mg DAILY PO 07/13/17 09:00 07/24/17 09:03 (Pepcid Inj) 10 mg Q12HR IV PUSH 07/12/17 21:00 07/24/17 09:03 (Lactulose Liq) 30 ml TID PO 07/14/17 13:00 07/24/17 09:02 (Apresoline) 50 mg Q8HR PO 07/18/17 08:45 07/24/17 13:06 (Apresoline Inj) 10 mg Q6H PRN IV PUSH 07/18/17 09:00 07/19/17 05:37 (Duoneb Neb) 1 ampule Q2HR NEB PRN NEB 07/18/17 14:45 07/19/17 00:33 (D50w (Vial) Inj) 50 ml UNSCH PRN IV PUSH 07/19/17 08:30 (Glucagon Inj) 1 mg UNSCH PRN OTHER 07/19/17 08:30 (NovoLIN R SUPPLEMENTAL SCALE) 1 Q6H SQ 07/19/17 10:00 07/23/17 17:08 Propofol 100 ml @ 4.53 mls/hr TITRATE PRN IV 07/19/17 15:30 07/24/17 04:55 (Diflucan) 100 mg DAILY PO 07/19/17 17:30 07/24/17 09:03 (Free Water) VOLUME OF WATER: ( 300 ) ML Q4HR G-TUBE 07/21/17 16:00 07/24/17 12:00 (Mag-Ox) 800 mg UNSCH PRN PO 07/21/17 14:45 Magnesium Sulfate 4 gm/Sodium Chloride 100 ml @ 50 mls/hr UNSCH PRN IV 07/21/17 14:45 Magnesium Sulfate 2 gm/Sodium Chloride 100 ml @ 50 mls/hr UNSCH PRN IV 07/21/17 14:45 Potassium Chloride 100 ml @ 50 mls/hr Q2H PRN IV 07/21/17 14:45 07/23/17 12:24 Potassium Chloride 100 ml @ 50 mls/hr Q2H PRN IV 07/21/17 14:45 Potassium Chloride 100 ml @ 50 mls/hr Q2H PRN IV 07/21/17 14:45 Potassium Chloride 100 ml @ 25 mls/hr UNSCH PRN IV 07/21/17 14:45 (K-Phos) 2,000 mg Q4H PRN PO 07/21/17 14:45 (K-Phos) 2,000 mg UNSCH PRN PO/TUBE 07/21/17 14:45 Potassium Phosphate 30 mmol/ Sodium Chloride 260 ml @ 42 mls/hr UNSCH PRN IV 07/21/17 14:45 Sodium Phosphate 30 mmol/Sodium Chloride 250 ml @ 42 mls/hr UNSCH PRN IV 07/21/17 14:45 (Duoneb Neb) 1 ampule Q6HR NEB NEB 07/22/17 10:00 07/24/17 08:25 Dextrose 1,000 ml @ 42 mls/hr [id number] IV 07/22/17 08:45 07/23/17 23:44 (Mucomyst 10% Neb) 2 ml Q6HR NEB NEB 07/23/17 11:00 07/24/17 08:25 (Roxicodone Intensol Liq) 10 mg Q4H PRN PO 07/23/17 10:00 07/24/17 06:05 Cefepime HCl 2000 mg/Sodium Chloride 100 ml @ 200 mls/hr Q8H IV 07/23/17 14:00 07/24/17 13:06 (K-Lyte Cl Eff) 50 meq UNSCH X1 PRN PO 07/24/17 10:15 07/24/17 23:59 07/24/17 10:15 Past Medical History Diabetes mellitus Hypertension Arrhythmia Hypothyroidism Seizure disorder Anxiety Depression Previous UTI Arthritis Past Surgical History Abdominal surgery in April, for free air, and he had cholecystectomy and appendectomy, but no real source of free air was found Previous tracheostomy and PEG placement, removed Abdominal wound, post surgery back in April, very slow to heal Back surgery Allergies: Coded Allergies: FRANCK Inhibitors (Verified Allergy, Unknown, 07/11/17) Vxoonru-Rpc-Ctk Reductase Inhibitor (Verified Allergy, Unknown, 07/11/17) Objective . Vital Signs Date Time Temp Pulse Resp B/P (MAP) Pulse Ox O2 Delivery O2 Flow Rate FiO2 07/24/17 12:27 100 40 07/24/17 12:00 40 07/24/17 12:00 54 07/24/17 12:00 97.5 54 16 108/53 (71) 100 07/24/17 10:00 52 07/24/17 08:32 16 07/24/17 08:25 98 40 07/24/17 08:00 40 07/24/17 08:00 47 07/24/17 08:00 96.4 47 17 85/43 (57) 99 07/24/17 06:00 59 07/24/17 04:00 40 07/24/17 04:00 52 07/24/17 02:00 76 07/24/17 00:56 98 40 07/24/17 00:00 40 07/24/17 00:00 75 07/23/17 22:00 84 07/23/17 20:36 97 40 07/23/17 20:00 52 07/23/17 20:00 40 07/23/17 18:00 58 07/23/17 16:00 40 07/23/17 16:00 61 07/23/17 16:00 97.0 61 16 142/63 (89) 95 07/23/17 15:55 97 40 . Laboratory Tests Test 07/23/17 03:50 07/24/17 06:10 White Blood Count 5.2 TH/MM3 4.7 TH/MM3 Red Blood Count 2.40 MIL/MM3 2.50 MIL/MM3 Hemoglobin 7.8 GM/DL 8.0 GM/DL Hematocrit 23.2 % 23.9 % Mean Corpuscular Volume 96.8 FL 95.5 FL Mean Corpuscular Hemoglobin 32.4 PG 31.9 PG Mean Corpuscular Hemoglobin Concent 33.5 % 33.3 % Red Cell Distribution Width 19.1 % 18.7 % Platelet Count 117 TH/MM3 134 TH/MM3 Mean Platelet Volume 9.5 FL 9.3 FL Laboratory Tests Test 07/23/17 03:50 07/23/17 18:09 07/24/17 06:10 Blood Urea Nitrogen 40 MG/DL 35 MG/DL Creatinine 1.04 MG/DL 1.04 MG/DL Random Glucose 98 MG/DL 97 MG/DL Calcium Level 8.5 MG/DL 8.8 MG/DL Sodium Level 148 MEQ/L 145 MEQ/L Potassium Level 3.4 MEQ/L 4.0 MEQ/L 3.3 MEQ/L Chloride Level 112 MEQ/L 111 MEQ/L Carbon Dioxide Level 26.5 MEQ/L 26.7 MEQ/L Anion Gap 10 MEQ/L 7 MEQ/L Estimat Glomerular Filtration Rate 52 ML/MIN 52 ML/MIN Imaging Chest X-Ray 07/21/17 0600 Signed Impressions: Service Date/Time: Friday, July 21, 2017 03:13 - CONCLUSION: Nasogastric tube now in place with the tip below the [id number] of the radiograph. No significant interval change in bilateral pulmonary opacity. Differential diagnosis includes pulmonary edema and infection. Angelito Lovett MD Head CT 07/11/17 1827 Signed Impressions: Service Date/Time: Tuesday, July 11, 2017 21:23 - CONCLUSION: No acute intracranial abnormality Jaden Clark MD Physical Exam GENERAL: intubated, not in respiratory distress. SKIN: Cool and dry. Edematous, has ecchymoses in both UE, no generalized rash HEAD: Atraumatic. Normocephalic. No temporal wasting, or tenderness. EYES: [place] conjunctiva. No petechia or hemorrhage. Pupils equal, round and reactive to light. Extraocular movements full and intact. No scleral icterus. No injection or drainage. EARS, NOSE AND THROAT: Nose without bleeding or purulent nasal discharge. No sinus tenderness. She is orally intubated. Moist oral mucosa. NECK: Trachea midline. Supple and not tender, no meningeal signs CARDIOVASCULAR: Regular rate and rhythm. Soft heart sounds. No murmurs, rubs or gallops heard RESPIRATORY: Diffuse rhonchi bilaterally. ABDOMEN: Soft, obese, non-tender, nondistended. Bowel sounds present and normoactive. No guarding. No rebound. No organomegaly.Dressing on abdominal wound, intact. EXTREMITIES: No clubbing, cyanosis, or edema.No joint effusion, has good ROM. No calf tenderness. Well perfused and warm. NEUROLOGICAL: Awake and alert. No facial asymmetry. Motor grossly within normal limits. PSYCHIATRIC: calm and cooperative. LINE: No evidence of infection Assessment & Plan Remarks IMPRESSION Recurrent respiratory failure, possibly with new VAP - C/S Enterobacter UTI, first UC with Kleb ESBL and Citrobacter - now with C albicans Neutropenia, ?due to new infection, ?meds - better Obesity RECOMMENDATION Continue IV cefepime to cover Enterobacter Continue Diflucan Monitor progress Weaning per CCM I will be OOT 07/25-07/30 Other ID MD covering in my absence Xochilt Woods MD Jul 24, 2017 14:12
--- NOTE | 2017-07-24 14:54 | PD.CONS ---
cc: Deniz Espino MD HPI Service General Surgery Consult Requested By Dr. Wilson Reason for Consult Tracheostomy tube placement and gastrostomy tube placement Primary Care Physician [facility] History of Present Illness This is a 77 -year-old female with a past medical history of diabetes mellitus, hypertension, arrhythmia's, morbidly obese, hypothyroidism and seizure disorder. The patient's history is somewhat complicated by a recent prolonged hospitalization and admission to [place] for [facility]. The patient was at [facility] in April and found to have intraperitoneal air. The present reports that the patient was taken to the operating room for exploratory laparotomy and had a cholecystectomy and appendectomy. Postoperatively the patient was placed on mechanical ventilation and was not able to wean from the ventilator. A percutaneous tracheostomy tube was placed and the patient was transferred to [place] for long-term acute care. At some point the tracheostomy was removed. Currently, the patient resides in a half-way where she was found have a [place] Coma Scale of 6 and was hypoglycemic. The patient was intubated in the Emergency Department for airway protection. The patient has been unable to wean from the mechanical ventilator and requires tracheostomy tube placement for ventilator dependent respiratory failure as well as a feeding tube for long- term acute care rehabilitation and nutrition. A General Surgery consultation has been requested for percutaneous tracheostomy tube placement and gastrostomy tube placement. Review of Systems ROS Limitations: Clinical Condition, Intubated Past Family Social History Past Medical History Diabetes mellitus Hypertension Arrhythmias Hypothyroidism Seizure disorder Past Surgical History Exploratory laparotomy with cholecystectomy and appendectomy in April of 2017 Percutaneous tracheostomy tube placement in May 2017 Reported Medications Combivent inhaler Ferrous sulfate Amiodarone Metoprolol Spiral left lateral Tramadol Tylenol Gabapentin Keppra Amitriptyline Modafinil Xanax Buspirone Zinc Furosemide Probiotic Bicycle suppository Magnesium citrate Pepcid Prednisone Levemir and Humalog Synthroid Santyl ointment Folic acid Vitamin C Multivitamin Allergies: Coded Allergies: FRANCK Inhibitors (Verified Allergy, Unknown, 07/11/17) Quffwel-Aqm-Ltz Reductase Inhibitor (Verified Allergy, Unknown, 07/11/17) Active Ordered Medications Current Medications Medications (Trade) Dose Ordered Sig/Kerri Route Start Time Stop Time Status Last Admin (NS Flush) 2 ml UNSCH PRN IV FLUSH 07/11/17 19:15 07/23/17 09:22 (NS Flush) 2 ml BID IV FLUSH 07/11/17 21:00 07/24/17 09:04 (Tylenol) 650 mg Q6H PRN PO 07/11/17 19:15 (Tears Naturale Opth Soln) 1 drop TID EACH EYE 07/12/17 09:00 07/24/17 13:07 (Zofran Inj) 4 mg Q6H PRN IV PUSH 07/11/17 19:15 (Heparin Inj) 5,000 units Q8H SQ 07/11/17 21:00 07/24/17 13:06 Miscellaneous Information 1 Q361D XX 07/11/17 19:15 07/11/17 19:15 (Chlorhexidine 2% Cloth) Taper DAILY@04 TOP 07/12/17 04:00 07/08/18 03:59 07/23/17 00:57 (Chlorhexidine 2% Cloth) 3 pack UNSCH PRN TOP 07/11/17 19:15 (Mare-Colace) 1 tab BID PO 07/11/17 21:00 07/24/17 09:03 (Milk Of Magngokul Liq) 30 ml Q12H PRN PO 07/11/17 19:15 (Senokot) 17.2 mg Q12H PRN PO 07/11/17 19:15 (Dulcolax Supp) 10 mg DAILY PRN RECTAL 07/11/17 19:15 (Xanax) 0.5 mg Q6H PRN PO 07/11/17 20:15 07/23/17 14:32 (Cordarone) 200 mg BID PO 07/11/17 21:00 07/24/17 09:02 (Elavil) 10 mg HS PO 07/11/17 21:00 07/23/17 20:30 (Vitamin C) 500 mg BID PO 07/11/17 21:00 07/24/17 09:03 (Buspar) 10 mg BID PO 07/11/17 21:00 07/24/17 09:03 (Santyl Oint) 1 applic DAILY TOPICAL 07/12/17 09:00 07/24/17 09:04 (Folate) 1 mg DAILY PO 07/12/17 09:00 07/24/17 09:02 (Synthroid) 25 mcg DAILY@0600 PO 07/12/17 06:00 07/24/17 06:00 (Zinc Sulfate) 220 mg DAILY PO 07/12/17 09:00 07/24/17 09:03 (Theragran) 1 tab DAILY PO 07/12/17 09:00 07/24/17 09:00 (Keppra Liq) 500 mg Q12HR NG 07/12/17 13:00 07/24/17 09:02 (Ferrous Sulfate Liq) 300 mg BID PO 07/12/17 13:00 07/24/17 09:02 (Neurontin) 600 mg DAILY PO 07/13/17 09:00 07/24/17 09:03 (Pepcid Inj) 10 mg Q12HR IV PUSH 07/12/17 21:00 07/24/17 09:03 (Lactulose Liq) 30 ml TID PO 07/14/17 13:00 07/24/17 09:02 (Apresoline) 50 mg Q8HR PO 07/18/17 08:45 07/24/17 13:06 (Apresoline Inj) 10 mg Q6H PRN IV PUSH 07/18/17 09:00 07/19/17 05:37 (Duoneb Neb) 1 ampule Q2HR NEB PRN NEB 07/18/17 14:45 07/19/17 00:33 (D50w (Vial) Inj) 50 ml UNSCH PRN IV PUSH 07/19/17 08:30 (Glucagon Inj) 1 mg UNSCH PRN OTHER 07/19/17 08:30 (NovoLIN R SUPPLEMENTAL SCALE) 1 Q6H SQ 07/19/17 10:00 07/23/17 17:08 Propofol 100 ml @ 4.53 mls/hr TITRATE PRN IV 07/19/17 15:30 07/24/17 04:55 (Diflucan) 100 mg DAILY PO 07/19/17 17:30 07/24/17 09:03 (Free Water) VOLUME OF WATER: ( 300 ) ML Q4HR G-TUBE 07/21/17 16:00 07/24/17 12:00 (Mag-Ox) 800 mg UNSCH PRN PO 07/21/17 14:45 Magnesium Sulfate 4 gm/Sodium Chloride 100 ml @ 50 mls/hr UNSCH PRN IV 07/21/17 14:45 Magnesium Sulfate 2 gm/Sodium Chloride 100 ml @ 50 mls/hr UNSCH PRN IV 07/21/17 14:45 Potassium Chloride 100 ml @ 50 mls/hr Q2H PRN IV 07/21/17 14:45 07/23/17 12:24 Potassium Chloride 100 ml @ 50 mls/hr Q2H PRN IV 07/21/17 14:45 Potassium Chloride 100 ml @ 50 mls/hr Q2H PRN IV 07/21/17 14:45 Potassium Chloride 100 ml @ 25 mls/hr UNSCH PRN IV 07/21/17 14:45 (K-Phos) 2,000 mg Q4H PRN PO 07/21/17 14:45 (K-Phos) 2,000 mg UNSCH PRN PO/TUBE 07/21/17 14:45 Potassium Phosphate 30 mmol/ Sodium Chloride 260 ml @ 42 mls/hr UNSCH PRN IV 07/21/17 14:45 Sodium Phosphate 30 mmol/Sodium Chloride 250 ml @ 42 mls/hr UNSCH PRN IV 07/21/17 14:45 (Duoneb Neb) 1 ampule Q6HR NEB NEB 07/22/17 10:00 07/24/17 08:25 Dextrose 1,000 ml @ 42 mls/hr [id number] IV 07/22/17 08:45 07/23/17 23:44 (Mucomyst 10% Neb) 2 ml Q6HR NEB NEB 07/23/17 11:00 07/24/17 08:25 (Roxicodone Intensol Liq) 10 mg Q4H PRN PO 07/23/17 10:00 07/24/17 06:05 Cefepime HCl 2000 mg/Sodium Chloride 100 ml @ 200 mls/hr Q8H IV 07/23/17 14:00 07/31/17 12:00 07/24/17 13:06 (K-Lyte Cl Eff) 50 meq UNSCH X1 PRN PO 07/24/17 10:15 07/24/17 23:59 07/24/17 10:15 Family History Noncontributory Social History Has had multiple prolonged hospitalizations and admissions to long-term acute care setting; currently resides in half-way Physical Exam Vital Signs Vital Signs Date Time Temp Pulse Resp B/P (MAP) Pulse Ox O2 Delivery O2 Flow Rate FiO2 07/24/17 12:27 100 40 07/24/17 12:00 40 07/24/17 12:00 54 07/24/17 12:00 97.5 54 16 108/53 (71) 100 07/24/17 10:00 52 07/24/17 08:32 16 07/24/17 08:25 98 40 07/24/17 08:00 40 07/24/17 08:00 47 07/24/17 08:00 96.4 47 17 85/43 (57) 99 07/24/17 06:00 59 07/24/17 04:00 40 07/24/17 04:00 52 07/24/17 02:00 76 07/24/17 00:56 98 40 07/24/17 00:00 40 07/24/17 00:00 75 07/23/17 22:00 84 07/23/17 20:36 97 40 07/23/17 20:00 52 07/23/17 20:00 40 07/23/17 18:00 58 07/23/17 16:00 40 07/23/17 16:00 61 07/23/17 16:00 97.0 61 16 142/63 (89) 95 07/23/17 15:55 97 40 Physical Exam GENERAL: Obese 77 year old female resting in bed on mechanical ventilator. SKIN: Warm and dry. HEAD: Atraumatic. Normocephalic. EYES: Pupils equal and round. No scleral icterus. No injection or drainage. ENT: No nasal bleeding or discharge. Mucous membranes pink and moist. Scar from prior tracheostomy tube placement. NECK: Trachea midline. CARDIOVASCULAR: Regular rate and rhythm. RESPIRATORY: No accessory muscle use. Clear to auscultation. Breath sounds equal bilaterally. GASTROINTESTINAL: Abdomen soft, very obese abdomen; incision from prior exploratory laparotomy with open draining wound--dressing removed. MUSCULOSKELETAL: Extremities without clubbing, cyanosis, or edema. No obvious deformities. Evidence of poor circulation in BLE. NEUROLOGICAL: Awake and alert on mechanical ventilator. PSYCHIATRIC: Unable to examine Laboratory Laboratory Tests Test 07/23/17 18:09 07/24/17 06:10 Potassium Level 4.0 3.3 White Blood Count 4.7 Red Blood Count 2.50 Hemoglobin 8.0 Hematocrit 23.9 Mean Corpuscular Volume 95.5 Mean Corpuscular Hemoglobin 31.9 Mean Corpuscular Hemoglobin Concent 33.3 Red Cell Distribution Width 18.7 Platelet Count 134 Mean Platelet Volume 9.3 Blood Urea Nitrogen 35 Creatinine 1.04 Random Glucose 97 Calcium Level 8.8 Sodium Level 145 Chloride Level 111 Carbon Dioxide Level 26.7 Anion Gap 7 Estimat Glomerular Filtration Rate 52 Date/Time Source Procedure Growth Status 07/20/17 14:00 Blood Peripheral Aerobic Blood Culture - Preliminary NO GROWTH IN 4 DAYS Resulted 07/20/17 14:00 Blood Peripheral Anaerobic Blood Culture - Preliminary NO GROWTH IN 4 DAYS Resulted 07/20/17 10:10 Sputum Endotracheal Gram Stain - Final Complete 07/20/17 10:10 Sputum Culture - Final Enterobacter Cloacae Complete 07/18/17 05:00 Urine Catheterized Urine Urine Culture - Final Kirsten Albicans Complete Result Diagram: 07/30/17 0500 07/30/17 0500 Assessment and Plan Assessment and Plan 77 year old female with hypoglycemia; low GCS on admission; in need to tracheostomy tube placement due to VDRF and feeding tube for LTAC -Plan for tracheostomy tube placement in OR tomorrow at 9AM -CT abd/pelvis today to evaluate for possible abscess at draining wound site -Pending the results of the CT scan will determine if we are able to place gastrostomy tube -If unable to place gastrostomy tube due to draining wound---patient may benefit from Dobhoff tube placement -Obtain consents -NPO after MN -Hold anticoagulation -Thank you for this consult; We will continue to follow Discussed Condition With Dr. Srinivas Cunningham atomic spectroscopist at bedside Attending Statement patient seen at bedside CT reviewed concern for abdominal infection and clear contraindication to gastrostomy tube placement at this time pt will need DHT feeding tube will plan to proceed with tracheostomy discussed with and critical care staff Attestation The exam, history, and the medical decision-making described in the above note were completed with the assistance of the mid-level provider. I reviewed and agree with the findings presented. I attest that I had a [id number] encounter with the patient on the same day, and personally performed and documented my assessment and findings in the medical record. Gloria Acevedo Jul 24, 2017 14:54 Deniz Espino MD Jul 25, 2017 20:20
[2017-07-24] MEDS ORDERED: IOHEXOL 350 MG/ML 10 ML VIAL (for RAD DIAG) IVCONTRAST ONE (15:29)
--- NOTE | 2017-07-24 15:37 | RADRPT ---
EXAM DATE/TIME: 07/24/2017 14:57 [facility] COMPARISON: No previous studies available for comparison. INDICATIONS : Evaluate for abscess around mid abdominal draining wound site. IV CONTRAST: 91 cc Omnipaque 350 (iohexol) IV ORAL CONTRAST: Prescribed oral contrast ingested. RADIATION DOSE: 29.28 CTDIvol (mGy) ; Patient body habitus MEDICAL HISTORY : Hypertension. Diabetes SURGICAL HISTORY : Cholecystectomy. Appendectomy. ENCOUNTER: Initial ACUITY: 1 day PAIN SCALE: Non-responsive LOCATION: abdomen TECHNIQUE: Volumetric scanning of the abdomen and pelvis was performed. Using automated exposure control and ad justment of the mA and/or kV according to patient size, radiation dose was kept as low as reasonably achievable to obtain optimal diagnostic quality images. DICOM format image data is available electro nically for review and comparison. FINDINGS: LOWER LUNGS: Moderate size right pleural effusion with some adjacent passive atelectasis. Minimal pleural effusion and atelectasis in the left lung base. LIVER: Homogeneous density without lesion. There is no dilation of the biliary tree. No calcified gallston es. SPLEEN: Normal size without lesion. Minimal surrounding fluid PANCREAS: Within normal limits. KIDNEYS: Normal in size and shape. There is no mass, stone or hydronephrosis. ADRENAL GLANDS: Within normal limits. VASCULAR: There is no aortic aneurysm. BOWEL/MESENTERY: The stomach, small bowel, and colon demonstrate no acute abnormality. There is no free intraperitone al air or fluid. ABDOMINAL WALL: There is significant induration in the anterior abdominal wall. There may be some minimal fluid in th e dependent portion of the induration in the anterior pelvis. I do not see any drainable fluid collec tion or free air. There is no intraperitoneal air. The bowel gas pattern is unremarkable.. RETROPERITONEUM: There is no lymphadenopathy. BLADDER: No wall thickening or mass. REPRODUCTIVE: Within normal limits. INGUINAL: There is no lymphadenopathy or hernia. MUSCULOSKELETAL: Within normal limits for patient age. CONCLUSION: Pleural effusion and atelectasis right greater than left. Bowel gas pattern is unremarkable. No evide nce of an abscess. Some induration anterior abdominal wall with some possible early fluid collection inferiorly within the lower pannus. Jame Preciado MD on July 24, 2017 at 15:32 Board Certified Radiologist. This report was verified electronically.
--- NOTE | 2017-07-24 18:10 | HHI.CCPN ---
Subjective Remarks/Hospital Course 07/11: 77-year-old morbidly obese female patient sent in from half-way, due to increased lethargy for the last 2 days, hypoglycemia early in the day with sugars of 44, given glucagon, chest x-ray showing a pneumonia according to facility staff, EMS noted the patient was fairly disoriented, GCS 6, and started bag valve masking her because of respiratory distress and hypoxia with sats in the 87% range despite oxygenation. Patient was brought in bag-valve- mask in progress and was immediately intubated in the emergency department by ED attending. 07/12: Sedated, orally intubated on mechanical ventilation. 07/13 Patient is sedated with Fentanyl and intubated. Afebrile. 07/14 No events overnight, Sedated with Fentanyl and Versed. Afebrile. Failed CPAP trials yesterday. 07/15 No events overnight. Sedated and intubated. ABG on CPAP yesterday showed resp acidosis with PH 7.22 and CO2: 58 07/16 Patient remains sedated and intubated 07/17. No events overnight. Remains sedated and intubated 07/18 Patient remains intubated off sedation. Afebrile. 07/19 Patient s/p extubation yesterday on BIPAP overnight. Awake. ABG last night showed resp acidosis with PH: 7.24, pCO2: 66 07/20 Patient was reintubated yesterday for resp failure. Sedated and intubated. Afebrile. 07/21: new HCAP with GNRs in sputum. persistent respiratory failure. likely will require long-term ventilation and slow wean. will consult general surgery for re-do trach and gastric access. 07/22: no changes. no improvements. gen surgery planning PEG/Trach next week. 07/23: sputum growing enterobacter; now on Cefepime per ID. neuro exam still stable, but fails weaning trials quickly. 07/24: no changes. still failing cpap and weaning trials. CT abd/pelvis done at gen surg request without overt abscess at prior peg site. Objective Vital Signs Date Time Temp Pulse Resp B/P (MAP) Pulse Ox O2 Delivery O2 Flow Rate FiO2 07/24/17 16:17 99 40 07/24/17 16:00 54 07/24/17 16:00 97.0 16 107/51 (69) Intake and Output 07/24/17 07/24/17 07/25/17 08:00 16:00 00:00 Intake Total 1241 ml Output Total 850 ml Balance 391 ml Result Diagram: 07/24/17 0610 07/24/17 1540 Imaging Last Impressions Chest X-Ray 07/19/17 0600 Signed Impressions: Service Date/Time: July 04:24 - CONCLUSION: Persistent left lower lobe infiltrates and new opacity in the lower lateral right lung. Jasen Delvalle MD Head CT 07/11/17 1827 Signed Impressions: Service Date/Time: Tuesday, July 11, 2017 21:23 - CONCLUSION: No acute intracranial abnormality Jaden Clark MD Objective Remarks GENERAL: Morbidly obese elderly female intubated. SKIN: Warm and dry. HEAD: Normocephalic. EYES: No scleral icterus. No injection or drainage. NECK: trachea midline. large neck circumference prevents assessment of jvd. small ulcerated area from prior trach site. CARDIOVASCULAR: Regular rate and rhythm. RESPIRATORY: Orally intubated on mechanical ventilation. GASTROINTESTINAL: Abdomen soft, non-tender, nondistended. left non-healing ulcer area from prior PEG site. MUSCULOSKELETAL: No cyanosis, or edema. NEURO EXAM: RASS -2. sedated. follows commands. A/P Assessment and Plan Assessment: 77yF with morbid obesity and recurrent healthcare associated pneumonia and hypoxic respiratory failure. will require trach and longer weaning. this is a recurrent trach from prolonged illness in the last 3 months- may not do well long-term. gen surg to coordinate timing and placement of trach/ peg. Plan Neuro: metabolic encephalopathy Seizure disorder Neuropathy On Diprivan infusion for sedation. Daily sedation vacation. Monitor neuro status. On Keppra 500mg Q12 oxycodone 10mg po q4h prn for pain. Pulm: Acute hypoxic and hypercarbic Respiratory failure Recurrent healthcare associated pneumonia Reintubated 07/19 Continue with vent support keep sat >92% Bronchodilators, ICU vent bundle. SBT daily as lisa CV: History of hypertension On Hydralazine 50mg Q8-Monitor HR and BP keep MAP>65mmHg Amiodarone 200mg BID 2d echo 07/20: normal biventricular function, EF 60%, RVSP 47 mmHg. : Acute kidney injury - improving. Free water deficit Monitor renal function, electrolytes replacement as needed. Renal function continue to improve free water 300mL q4h. d5w @ 42mL GI: Morbid Obesity Acute protein calorie malnutrition- moderate On Glucerna 1.5@65ml/hr, On roly Colace, Lactulose for bowel regimen ICU electrolyte protocol ID: Recurrent HCAP pneumonia Urinary tract infection Continue Diflucan, cefepime. Urine cx: 07/11: Kleb ESBL, Citrobacter. Repeat urine cx 07/18 - Kirsten Albicans sputum cx: enterobacter ID following. Heme: Anemia secondary to chronic disease Monitor CBC, on Ferrous sulfate and Folic acid Hep PLT ab -negative Endo: Hypothyroidism Hyperglycemia of Critical illness SSI medium scale for glycemic control GI prophylaxis- on Pepcid DVT prophylaxis- Heparin SQ Rafael Wilson MD Jul 24, 2017 18:10
[2017-07-24] MEDS: AMITRIPTYLINE HCL 10 MG TAB PO SCH (20:46)
[2017-07-25] VITALS (21 sets, daily range): BP systolic 86–124; BP diastolic 51–59; PULSE 51–61; RESP 16–19; TEMP 97.4–98; O2SAT 99–100
[2017-07-25] MEDS: RESP: ACETYLCYSTEINE 10% 30 ML NEB NEB SCH ×3 (04:00→21:33)
[2017-07-25] MEDS: CHLORHEXIDINE GLUCONATE 2 % 1 PACK (2 CLOTHS) TOP SCH ×2 (04:00→23:40)
[2017-07-25] MEDS: FREE WATER G-TUBE SCH ×7 (04:00→23:38)
[2017-07-25] MEDS: INSULIN NovoLIN REGULAR SUPPLEMENTAL SCALE SQ SCH ×4 (04:00→22:00)
[2017-07-25] MEDS: RESP: ALBUTEROL 2.5 MG/IPRATROPIUM 0.5 MG NEB (SCH) NEB ×4 (04:00→21:33)
[2017-07-25] MEDS: LEVOTHYROXINE SODIUM 25 MCG TAB PO SCH (05:00)
[2017-07-25] MEDS: CEFEPIME INJ 2,000 MG in SODIUM CHLORIDE 0.9% INJ 100 ML IV SCH ×3 (05:00→22:02)
[2017-07-25 05:40] LABS: HEMATOCRIT 21.9 % (35.0-46.0); HEMOGLOBIN 7.1 GM/DL (11.6-15.3); MEAN CELL VOLUME 95.9 FL (80.0-100.0); MEAN CORPUSCULAR HEMOGLOBIN 31.2 PG (27.0-34.0); MEAN CORPUSCULAR HGB CONC 32.5 % (32.0-36.0); MEAN PLATELET VOLUME 9.6 FL (7.0-11.0); PLATELET COUNT 108 TH/MM3 (150-450); RED BLOOD COUNT 2.28 MIL/MM3 (4.00-5.30); RED CELL DISTRIBUTION WIDTH 18.9 % (11.6-17.2); WHITE BLOOD COUNT 4.1 TH/MM3 (4.0-11.0)
[2017-07-25 05:42] LABS: INTERNATIONAL NORMALIZED RATIO 1.1 RATIO; PROTHROMBIN TIME - PATIENT 11.1 SEC (9.8-11.6)
[2017-07-25] MEDS: hydrALAZINE HCL 50 MG TAB PO SCH ×3 (06:00→22:02)
[2017-07-25 06:07] LABS: BICARBONATE 23.4 MEQ/L (21.0-32.0); CALCIUM 8.3 MG/DL (8.5-10.1); CREATININE 1.04 MG/DL (0.50-1.00)
[2017-07-25] MEDS: DEXTROSE 5% IN WATE 1000ML INJ 1,000 ML IV SCH (06:42)
[2017-07-25] MEDS: PROPOFOL 1000 MG/100 ML INJ 100 ML IV PRN ×2 (08:10→18:40)
[2017-07-25] MEDS: SODIUM CHLORIDE 0.9% FLUSH 10 ML FLUSH IV FLUSH SCH ×2 (08:11→20:14)
[2017-07-25] MEDS: COLLAGENASE OINT 30 GM TUBE TOPICAL SCH (08:11)
[2017-07-25] MEDS: ARTIFICIAL TEARS OPTH SOLN 15 ML BTL EACH EYE SCH ×3 (08:11→18:00)
[2017-07-25] MEDS: levETIRAcetam 500 MG/5 ML UDC NG SCH ×2 (09:00→20:16)
[2017-07-25] MEDS: FERROUS SULFATE 300 MG /5ML UDC PO SCH ×2 (09:00→20:15)
[2017-07-25] MEDS: GABAPENTIN 300 MG CAP PO SCH (09:00)
[2017-07-25] MEDS: FOLIC ACID 1 MG TAB PO SCH (09:00)
[2017-07-25] MEDS: ASCORBIC ACID 500 MG TAB PO SCH ×2 (09:00→20:16)
[2017-07-25] MEDS: AMIODARONE 200 MG TAB PO SCH ×2 (09:00→20:16)
[2017-07-25] MEDS: busPIRone HCL 10 MG TAB PO SCH ×2 (09:00→20:16)
[2017-07-25] MEDS: DOCUSATE SODIUM 50 MG/SENNA 8.6 MG TAB PO SCH ×2 (09:00→20:15)
[2017-07-25] MEDS: ZINC SULFATE 220 MG CAP PO SCH (09:00)
[2017-07-25] MEDS: MULTIVITAMIN TAB PO SCH (09:00)
[2017-07-25] MEDS: FLUCONAZOLE 100 MG TAB PO SCH (09:00)
[2017-07-25] MEDS: LACTULOSE SYRUP 20 GM/30 ML CUP PO SCH ×3 (09:00→18:00)
[2017-07-25] MEDS ORDERED: LIDOCAINE 1%/EPINEPHrine 1:100,000 SOLN 50 ML VIAL ONE (09:29)
--- NOTE | 2017-07-25 10:48 | HHI.PR ---
Immediate Post Op Note Procedure Date: Jul 25, 2017 Pre Op Diagnosis: acute respiratory failure Post Op Diagnosis: same Surgeon: Deniz Espino MD Shoe Singer(s): see or sheet Procedure: perc trach with bronchoscopy Findings: good et return Complications: none Specimen(s) removed: none Estimated blood loss: 5cc Anesthesia: General Drains: None Patient to: ISC Patient Condition: Fair Deniz Espino MD Jul 25, 2017 10:48
[2017-07-25] MEDS ORDERED: ROCURONIUM INJ 50 MG/5 ML SYRINGE IV PUSH ONE (12:00)
[2017-07-25] MEDS ORDERED: PROPOFOL 200 MG/20 ML AMP IV ONE (12:00)
[2017-07-25] MEDS: oxyCODONE HCL ORAL CONC 5 MG/0.25 ML SYRINGE PO PRN (12:21)
[2017-07-25] MEDS: FAMOTIDINE 20 MG/2 ML VIAL IV PUSH SCH ×2 (12:54→20:15)
--- NOTE | 2017-07-25 16:51 | HHI.CCPN ---
Subjective Remarks/Hospital Course 07/11: 77-year-old morbidly obese female patient sent in from residential, due to increased lethargy for the last 2 days, hypoglycemia early in the day with sugars of 44, given glucagon, chest x-ray showing a pneumonia according to facility staff, EMS noted the patient was fairly disoriented, GCS 6, and started bag valve masking her because of respiratory distress and hypoxia with sats in the 87% range despite oxygenation. Patient was brought in bag-valve- mask in progress and was immediately intubated in the emergency department by ED attending. 07/12: Sedated, orally intubated on mechanical ventilation. 07/13 Patient is sedated with Fentanyl and intubated. Afebrile. 07/14 No events overnight, Sedated with Fentanyl and Versed. Afebrile. Failed CPAP trials yesterday. 07/15 No events overnight. Sedated and intubated. ABG on CPAP yesterday showed resp acidosis with PH 7.22 and CO2: 58 07/16 Patient remains sedated and intubated 07/17. No events overnight. Remains sedated and intubated 07/18 Patient remains intubated off sedation. Afebrile. 07/19 Patient s/p extubation yesterday on BIPAP overnight. Awake. ABG last night showed resp acidosis with PH: 7.24, pCO2: 66 07/20 Patient was reintubated yesterday for resp failure. Sedated and intubated. Afebrile. 07/21: new HCAP with GNRs in sputum. persistent respiratory failure. likely will require long-term ventilation and slow wean. will consult general surgery for re-do trach and gastric access. 07/22: no changes. no improvements. gen surgery planning PEG/Trach next week. 07/23: sputum growing enterobacter; now on Cefepime per ID. neuro exam still stable, but fails weaning trials quickly. 07/24: no changes. still failing cpap and weaning trials. CT abd/pelvis done at gen surg request without overt abscess at prior peg site. 07/25: s/p trach today. doing well. still failing cpap. approved for LTAC. surgical contra-indication to PEG placement with induration at old PEG site: will use DHT for enteral access and tube feeds. ID giving final recs for duration of therapy. Objective Vital Signs Date Time Temp Pulse Resp B/P (MAP) Pulse Ox O2 Delivery O2 Flow Rate FiO2 07/25/17 15:58 100 40 07/25/17 06:00 61 07/25/17 04:00 98.0 16 86/59 (68) Intake and Output 07/25/17 07/25/17 07/26/17 08:00 16:00 00:00 Intake Total 1440 ml 500 ml Output Total 700 ml 5 ml Balance 740 ml 495 ml Result Diagram: 07/25/17 0340 07/25/17 034 Imaging Last Impressions Chest X-Ray 07/19/17 06 Signed Impressions: Service Date/Time: July 04:24 - CONCLUSION: Persistent left lower lobe infiltrates and new opacity in the lower lateral right lung. Jasen Delvalle MD Head CT 07/11/[id number] Signed Impressions: Service Date/Time: Tuesday, July 11, 2017 21:23 - CONCLUSION: No acute intracranial abnormality Jaden Clark MD Objective Remarks GENERAL: Morbidly obese elderly female s/p trach SKIN: Warm and dry. HEAD: Normocephalic. EYES: No scleral icterus. No injection or drainage. NECK: trachea midline. large neck circumference prevents assessment of jvd. s/ p new trach. CARDIOVASCULAR: Regular rate and rhythm. RESPIRATORY: Orally intubated on mechanical ventilation. GASTROINTESTINAL: Abdomen soft, non-tender, nondistended. left non-healing ulcer area from prior PEG site. MUSCULOSKELETAL: No cyanosis, or edema. NEURO EXAM: RASS -1. sedated. follows commands. A/P Assessment and Plan Assessment: 77yF with morbid obesity and recurrent healthcare associated pneumonia and hypoxic respiratory failure. s/p trach 07/25. stable for transfer to LTAC. contra-indicated for PEG given recent peg site induration. will use DHT for long-term enteral nutrition. from an ID standpoint, would recommend full 7-10 day course of Cefepime iv for recurrent HCAP pneumonia, and 14 day course of iv antifungals. Plan Neuro: metabolic encephalopathy Seizure disorder Neuropathy On Diprivan infusion for sedation. Daily sedation vacation. Monitor neuro status. On Keppra 500mg Q12 oxycodone 10mg po q4h prn for pain. Pulm: Acute hypoxic and hypercarbic Respiratory failure Recurrent healthcare associated pneumonia Reintubated 07/19 Continue with vent support keep sat >92% Bronchodilators, ICU vent bundle. SBT daily as lisa s/p trach 07/[address] Espino CV: History of hypertension On Hydralazine 50mg Q8-Monitor HR and BP keep MAP>65mmHg Amiodarone 200mg BID 2d echo 07/20: normal biventricular function, EF 60%, RVSP 47 mmHg. : Acute kidney injury - improving. Free water deficit Monitor renal function, electrolytes replacement as needed. Renal function continue to improve free water 300mL q4h. d/c d5w. GI: Morbid Obesity Acute protein calorie malnutrition- moderate On Glucerna 1.5@65ml/hr, On roly Colace, Lactulose for bowel regimen ICU electrolyte protocol ID: Recurrent HCAP pneumonia Urinary tract infection Continue Diflucan, cefepime. stop date on cefepime 07/31. would continue diflucan 14 days. Urine cx: 07/11: Kleb ESBL, Citrobacter. Repeat urine cx 07/18 - Kirsten Albicans sputum cx: enterobacter ID following. Heme: Anemia secondary to chronic disease Monitor CBC, on Ferrous sulfate and Folic acid Hep PLT ab -negative Endo: Hypothyroidism Hyperglycemia of Critical illness SSI medium scale for glycemic control GI prophylaxis- on Pepcid DVT prophylaxis- Heparin SQ Dispo: stable for transfer to LTAC. Rafael Wilson MD Jul 25, 2017 16:51
[2017-07-25] MEDS: HYDROmorphone HCL PF 2 MG/ML VIAL IV PUSH PRN ×2 (17:04→21:12)
--- NOTE | 2017-07-25 17:08 | HHI.DS ---
Discharge Summary Admission Date Jul 11, 2017 at 18:59 Discharge Date: Jul 26, 2017 Admitting Diagnosis pneumonia/severe sepsis/respiratory failure/intubated Brief History 77-year-old morbidly obese female patient sent in from detention, due to increased lethargy for the last 2 days, hypoglycemia early in the day with sugars of 44, given glucagon, chest x-ray showing a pneumonia according to facility staff, EMS noted the patient was fairly disoriented, GCS 6, and started bag valve masking her because of respiratory distress and hypoxia with sats in the 87% range despite oxygenation. Patient was brought in bag-valve- mask in progress and was immediately intubated in the emergency department by ED attending. CBC/BMP: 07/25/17 0340 07/25/17 0340 Significant Findings Laboratory Tests Test 07/23/17 03:50 07/23/17 18:09 07/24/17 06:10 07/24/17 15:40 Red Blood Count 2.40 MIL/MM3 (4.00-5.30) 2.50 MIL/MM3 (4.00-5.30) Hemoglobin 7.8 GM/DL (11.6-15.3) 8.0 GM/DL (11.6-15.3) Hematocrit 23.2 % (35.0-46.0) 23.9 % (35.0-46.0) Red Cell Distribution Width 19.1 % (11.6-17.2) 18.7 % (11.6-17.2) Platelet Count 117 TH/MM3 (150-450) 134 TH/MM3 (150-450) Blood Urea Nitrogen 40 MG/DL (7-18) 35 MG/DL (7-18) Creatinine 1.04 MG/DL (0.50-1.00) 1.04 MG/DL (0.50-1.00) Sodium Level 148 MEQ/L (136-145) Potassium Level 3.4 MEQ/L (3.5-5.1) 3.3 MEQ/L (3.5-5.1) Chloride Level 112 MEQ/L (98-107) 111 MEQ/L (98-107) Estimat Glomerular Filtration Rate 52 ML/MIN (>89) 52 ML/MIN (>89) Test 07/25/17 03:40 Red Blood Count 2.28 MIL/MM3 (4.00-5.30) Hemoglobin 7.1 GM/DL (11.6-15.3) Hematocrit 21.9 % (35.0-46.0) Red Cell Distribution Width 18.9 % (11.6-17.2) Platelet Count 108 TH/MM3 (150-450) Blood Urea Nitrogen 37 MG/DL (7-18) Creatinine 1.04 MG/DL (0.50-1.00) Calcium Level 8.3 MG/DL (8.5-10.1) Chloride Level 108 MEQ/L (98-107) Estimat Glomerular Filtration Rate 52 ML/MIN (>89) Hospital Course 07/11: 77-year-old morbidly obese female patient sent in from detention, due to increased lethargy for the last 2 days, hypoglycemia early in the day with sugars of 44, given glucagon, chest x-ray showing a pneumonia according to facility staff, EMS noted the patient was fairly disoriented, GCS 6, and started bag valve masking her because of respiratory distress and hypoxia with sats in the 87% range despite oxygenation. Patient was brought in bag-valve- mask in progress and was immediately intubated in the emergency department by ED attending. 07/12: Sedated, orally intubated on mechanical ventilation. 07/13 Patient is sedated with Fentanyl and intubated. Afebrile. 07/14 No events overnight, Sedated with Fentanyl and Versed. Afebrile. Failed CPAP trials yesterday. 07/15 No events overnight. Sedated and intubated. ABG on CPAP yesterday showed resp acidosis with PH 7.22 and CO2: 58 07/16 Patient remains sedated and intubated 07/17. No events overnight. Remains sedated and intubated 07/18 Patient remains intubated off sedation. Afebrile. 07/19 Patient s/p extubation yesterday on BIPAP overnight. Awake. ABG last night showed resp acidosis with PH: 7.24, pCO2: 66 07/20 Patient was reintubated yesterday for resp failure. Sedated and intubated. Afebrile. 07/21: new HCAP with GNRs in sputum. persistent respiratory failure. likely will require long-term ventilation and slow wean. will consult general surgery for re-do trach and gastric access. 07/22: no changes. no improvements. gen surgery planning PEG/Trach next week. 07/23: sputum growing enterobacter; now on Cefepime per ID. neuro exam still stable, but fails weaning trials quickly. 07/24: no changes. still failing cpap and weaning trials. CT abd/pelvis done at gen surg request without overt abscess at prior peg site. 07/25: s/p trach today. doing well. still failing cpap. approved for LTAC. surgical contra-indication to PEG placement with induration at old PEG site: will use DHT for enteral access and tube feeds. ID giving final recs for duration of therapy. stable for discharge to LTAC when bed available. Pt Condition on Discharge: Stable Discharge Disposition: Trnsfr to Other Facility Discharge Instructions DIET: Follow Instructions for: On Tube Feeding Activities you can perform: Regular-No Restrictions Rafael Wilson MD Jul 25, 2017 17:08
[2017-07-25] MEDS ORDERED: DIFL100T PO (17:11)
--- NOTE | 2017-07-25 18:41 | RADRPT ---
EXAM DATE/TIME: 07/25/2017 17:34 [facility] COMPARISON: No previous studies available for comparison. INDICATIONS : Evaluate for dobhoff placement. MEDICAL HISTORY : Hypertension. Diabetes SURGICAL HISTORY : Cholecystectomy. Appendectomy. ENCOUNTER: Subsequent ACUITY: 1 day PAIN SCORE: Non-responsive. LOCATION: Abdomen FINDINGS: Limited quality examination due to patient's body habitus and motion. A tube is seen in the stomach and the metallic tip is projected to the right of midline, either in the distal stomach or proximal d uodenum. CONCLUSION: Dobbhoff catheter tip in the distal stomach. Jasen Delvalle MD on July 25, 2017 at 18:38 Board Certified Radiologist. This report was verified electronically.
[2017-07-25] MEDS: AMITRIPTYLINE HCL 10 MG TAB PO SCH (20:16)
[2017-07-26] VITALS (21 sets, daily range): BP systolic 94–120; BP diastolic 50–58; PULSE 52–72; RESP 16–22; TEMP 97.1–98; O2SAT 100
[2017-07-26] MEDS: INSULIN NovoLIN REGULAR SUPPLEMENTAL SCALE SQ SCH ×4 (04:00→22:00)
[2017-07-26] MEDS: FREE WATER G-TUBE SCH ×3 (04:00→11:46)
[2017-07-26] MEDS: RESP: ALBUTEROL 2.5 MG/IPRATROPIUM 0.5 MG NEB (SCH) NEB ×4 (04:41→21:35)
[2017-07-26] MEDS: RESP: ACETYLCYSTEINE 10% 30 ML NEB NEB SCH ×4 (04:41→21:35)
[2017-07-26] MEDS: PROPOFOL 1000 MG/100 ML INJ 100 ML IV PRN ×2 (04:51→13:48)
[2017-07-26 05:06] LABS: HEMATOCRIT 23.2 % (35.0-46.0); HEMOGLOBIN 7.6 GM/DL (11.6-15.3); MEAN CELL VOLUME 95.8 FL (80.0-100.0); MEAN CORPUSCULAR HEMOGLOBIN 31.2 PG (27.0-34.0); MEAN CORPUSCULAR HGB CONC 32.6 % (32.0-36.0); MEAN PLATELET VOLUME 9.6 FL (7.0-11.0); PLATELET COUNT 116 TH/MM3 (150-450); RED BLOOD COUNT 2.42 MIL/MM3 (4.00-5.30); RED CELL DISTRIBUTION WIDTH 18.8 % (11.6-17.2); WHITE BLOOD COUNT 4.5 TH/MM3 (4.0-11.0)
[2017-07-26 05:34] LABS: BICARBONATE 20.9 MEQ/L (21.0-32.0); CALCIUM 8.4 MG/DL (8.5-10.1); CREATININE 1.11 MG/DL (0.50-1.00)
[2017-07-26] MEDS: hydrALAZINE HCL 50 MG TAB PO SCH ×3 (06:00→21:47)
[2017-07-26] MEDS: LEVOTHYROXINE SODIUM 25 MCG TAB PO SCH (06:10)
[2017-07-26] MEDS: CEFEPIME INJ 2,000 MG in SODIUM CHLORIDE 0.9% INJ 100 ML IV SCH ×3 (06:10→21:47)
[2017-07-26] MEDS: levETIRAcetam 500 MG/5 ML UDC NG SCH ×2 (07:57→20:06)
[2017-07-26] MEDS: ASCORBIC ACID 500 MG TAB PO SCH ×2 (07:57→20:07)
[2017-07-26] MEDS: FLUCONAZOLE 100 MG TAB PO SCH (07:57)
[2017-07-26] MEDS: FOLIC ACID 1 MG TAB PO SCH (07:58)
[2017-07-26] MEDS: AMIODARONE 200 MG TAB PO SCH ×2 (07:58→20:06)
[2017-07-26] MEDS: GABAPENTIN 300 MG CAP PO SCH (07:58)
[2017-07-26] MEDS: MULTIVITAMIN TAB PO SCH (07:58)
[2017-07-26] MEDS: ZINC SULFATE 220 MG CAP PO SCH (07:58)
[2017-07-26] MEDS: FERROUS SULFATE 300 MG /5ML UDC PO SCH ×2 (07:58→20:06)
[2017-07-26] MEDS: busPIRone HCL 10 MG TAB PO SCH ×2 (07:58→20:06)
[2017-07-26] MEDS: FAMOTIDINE 20 MG/2 ML VIAL IV PUSH SCH ×2 (07:59→20:06)
[2017-07-26] MEDS: SODIUM CHLORIDE 0.9% FLUSH 10 ML FLUSH IV FLUSH PRN (08:00)
[2017-07-26] MEDS: SODIUM CHLORIDE 0.9% FLUSH 10 ML FLUSH IV FLUSH SCH ×2 (08:00→20:06)
[2017-07-26] MEDS: LACTULOSE SYRUP 20 GM/30 ML CUP PO SCH ×3 (08:01→18:00)
[2017-07-26] MEDS: COLLAGENASE OINT 30 GM TUBE TOPICAL SCH (08:01)
[2017-07-26] MEDS: DOCUSATE SODIUM 50 MG/SENNA 8.6 MG TAB PO SCH ×2 (08:01→20:06)
[2017-07-26] MEDS: ARTIFICIAL TEARS OPTH SOLN 15 ML BTL EACH EYE SCH ×3 (08:01→18:00)
--- NOTE | 2017-07-26 12:34 | HHI.CCPN ---
Subjective Remarks/Hospital Course 07/11: 77-year-old morbidly obese female patient sent in from retirement, due to increased lethargy for the last 2 days, hypoglycemia early in the day with sugars of 44, given glucagon, chest x-ray showing a pneumonia according to facility staff, EMS noted the patient was fairly disoriented, GCS 6, and started bag valve masking her because of respiratory distress and hypoxia with sats in the 87% range despite oxygenation. Patient was brought in bag-valve- mask in progress and was immediately intubated in the emergency department by ED attending. 07/12: Sedated, orally intubated on mechanical ventilation. 07/13 Patient is sedated with Fentanyl and intubated. Afebrile. 07/14 No events overnight, Sedated with Fentanyl and Versed. Afebrile. Failed CPAP trials yesterday. 07/15 No events overnight. Sedated and intubated. ABG on CPAP yesterday showed resp acidosis with PH 7.22 and CO2: 58 07/16 Patient remains sedated and intubated 07/17. No events overnight. Remains sedated and intubated 07/18 Patient remains intubated off sedation. Afebrile. 07/19 Patient s/p extubation yesterday on BIPAP overnight. Awake. ABG last night showed resp acidosis with PH: 7.24, pCO2: 66 07/20 Patient was reintubated yesterday for resp failure. Sedated and intubated. Afebrile. 07/21: new HCAP with GNRs in sputum. persistent respiratory failure. likely will require long-term ventilation and slow wean. will consult general surgery for re-do trach and gastric access. 07/22: no changes. no improvements. gen surgery planning PEG/Trach next week. 07/23: sputum growing enterobacter; now on Cefepime per ID. neuro exam still stable, but fails weaning trials quickly. 07/24: no changes. still failing cpap and weaning trials. CT abd/pelvis done at gen surg request without overt abscess at prior peg site. 07/25: s/p trach today. doing well. still failing cpap. approved for LTAC. surgical contra-indication to PEG placement with induration at old PEG site: will use DHT for enteral access and tube feeds. ID giving final recs for duration of therapy. stable for discharge to LTAC when bed available. 07/26 No events overnight. Patient was rejected by [facility] this morning per supervisor case loading. Afebrile. Objective Vital Signs Date Time Temp Pulse Resp B/P (MAP) Pulse Ox O2 Delivery O2 Flow Rate FiO2 07/26/17 12:04 100 40 07/26/17 10:00 52 07/26/17 08:00 97.1 16 106/50 (68) Intake and Output 07/26/17 07/26/17 07/27/17 08:00 16:00 00:00 Intake Total 1404.86 ml 36.24 ml Output Total 250 ml Balance 1154.86 ml 36.24 ml Result Diagram: 07/26/17 0344 07/26/17 0344 Other Results Laboratory Tests Test 07/26/17 03:44 White Blood Count 4.5 TH/MM3 Red Blood Count 2.42 MIL/MM3 Hemoglobin 7.6 GM/DL Hematocrit 23.2 % Mean Corpuscular Volume 95.8 FL Mean Corpuscular Hemoglobin 31.2 PG Mean Corpuscular Hemoglobin Concent 32.6 % Red Cell Distribution Width 18.8 % Platelet Count 116 TH/MM3 Mean Platelet Volume 9.6 FL Blood Urea Nitrogen 32 MG/DL Creatinine 1.11 MG/DL Random Glucose 88 MG/DL Calcium Level 8.4 MG/DL Sodium Level 140 MEQ/L Potassium Level 3.6 MEQ/L Chloride Level 108 MEQ/L Carbon Dioxide Level 20.9 MEQ/L Anion Gap 11 MEQ/L Estimat Glomerular Filtration Rate 48 ML/MIN Imaging Last Impressions Abdomen X-Ray 07/25/17 0000 Signed Impressions: Service Date/Time: Tuesday, July 25, 2017 17:34 - CONCLUSION: Dobbhoff catheter tip in the distal stomach. Jasen Delvalle MD Abdomen/Pelvis CT 07/24/17 0000 Signed Impressions: Service Date/Time: Monday, July 24, 2017 14:57 - CONCLUSION: Pleural effusion and atelectasis right greater than left. Bowel gas pattern is unremarkable. No evidence of an abscess. Some induration anterior abdominal wall with some possible early fluid collection inferiorly within the lower pannus. Jame Preciado MD Chest X-Ray 07/21/17 0600 Signed Impressions: Service Date/Time: Friday, July 21, 2017 03:13 - CONCLUSION: Nasogastric tube now in place with the tip below the [id number] of the radiograph. No significant interval change in bilateral pulmonary opacity. Differential diagnosis includes pulmonary edema and infection. Angelito Lovett MD Head CT 07/11/171 Signed Impressions: Service Date/Time: Tuesday, July 11, 2017 21:23 - CONCLUSION: No acute intracranial abnormality Jaden Clark MD Objective Remarks GENERAL: Morbidly obese elderly female s/p trach SKIN: Warm and dry. HEAD: Normocephalic. EYES: No scleral icterus. No injection or drainage. NECK: trachea midline. large neck circumference prevents assessment of jvd. s/ p new trach. CARDIOVASCULAR: Regular rate and rhythm. RESPIRATORY: Orally intubated on mechanical ventilation. GASTROINTESTINAL: Abdomen soft, non-tender, nondistended. left non-healing ulcer area from prior PEG site. MUSCULOSKELETAL: No cyanosis, or edema. NEURO EXAM: RASS -1. sedated. follows commands. A/P Assessment and Plan Assessment: 77yF with morbid obesity and recurrent healthcare associated pneumonia and hypoxic respiratory failure. s/p trach 07/25. stable for transfer to LTAC. contra-indicated for PEG given recent peg site induration. will use DHT for long-term enteral nutrition. from an ID standpoint, would recommend full 7-10 day course of Cefepime iv for recurrent HCAP pneumonia, and 14 day course of iv antifungals. Plan Neuro: metabolic encephalopathy Seizure disorder Neuropathy On Diprivan infusion for sedation. Daily sedation vacation. Monitor neuro status. On Keppra 500mg Q12 oxycodone 10mg po q4h prn for pain. Pulm: Acute hypoxic and hypercarbic Respiratory failure Recurrent healthcare associated pneumonia Reintubated 07/19 Continue with vent support keep sat >92% Bronchodilators, ICU vent bundle. SBT daily as lisa s/p trach 07/[address] Srinivas Kennedy [place], [facility] care CV: History of hypertension On Hydralazine 50mg Q8-Monitor HR and BP keep MAP>65mmHg Amiodarone 200mg BID 2d echo 07/20: normal biventricular function, EF 60%, RVSP 47 mmHg. : Acute kidney injury - improving. Free water deficit Monitor renal function, electrolytes replacement as needed. Renal function continue to improve GI: Morbid Obesity Acute protein calorie malnutrition- moderate On Glucerna 1.5@65ml/hr, On roly Colace, Lactulose for bowel regimen ICU electrolyte protocol ID: Recurrent HCAP pneumonia Urinary tract infection Continue Diflucan, cefepime. stop date on cefepime 07/31. Urine cx: 07/11: Kleb ESBL, Citrobacter. Repeat urine cx 07/18 - Kirsten Albicans sputum cx: enterobacter ID following. Heme: Anemia secondary to chronic disease Monitor CBC, on Ferrous sulfate and Folic acid Hep PLT ab -negative Endo: Hypothyroidism Hyperglycemia of Critical illness SSI medium scale for glycemic control GI prophylaxis- on Pepcid DVT prophylaxis- Heparin SQ Dispo: Awaiting placement in LTAC. Patient was rejected by [facility] today. Level 2 Brittani Mercado MD Jul 26, 2017 12:34
--- NOTE | 2017-07-26 13:28 | HHI.PR ---
Subjective Subjective Notes Resting in bed Eyes closed at bedside Objective Vitals/I&O Vital Signs Date Time Temp Pulse Resp B/P (MAP) Pulse Ox O2 Delivery O2 Flow Rate FiO2 07/26/17 12:04 100 40 07/26/17 10:00 52 07/26/17 08:00 97.1 16 106/50 (68) Labs Laboratory Tests Test 07/26/17 03:44 White Blood Count 4.5 Red Blood Count 2.42 Hemoglobin 7.6 Hematocrit 23.2 Mean Corpuscular Volume 95.8 Mean Corpuscular Hemoglobin 31.2 Mean Corpuscular Hemoglobin Concent 32.6 Red Cell Distribution Width 18.8 Platelet Count 116 Mean Platelet Volume 9.6 Blood Urea Nitrogen 32 Creatinine 1.11 Random Glucose 88 Calcium Level 8.4 Sodium Level 140 Potassium Level 3.6 Chloride Level 108 Carbon Dioxide Level 20.9 Anion Gap 11 Estimat Glomerular Filtration Rate 48 Date/Time Source Procedure Growth Status 07/20/17 14:00 Blood Peripheral Aerobic Blood Culture - Final NO GROWTH IN 5 DAYS Complete 07/20/17 14:00 Blood Peripheral Anaerobic Blood Culture - Final NO GROWTH IN 5 DAYS Complete 07/20/17 10:10 Sputum Endotracheal Gram Stain - Final Complete 07/20/17 10:10 Sputum Culture - Final Enterobacter Cloacae Complete 07/18/17 05:00 Urine Catheterized Urine Urine Culture - Final Kirsten Albicans Complete Cardiovascular: Regular Lungs: Clear Abdomen: Other (LUQ wound from prior surgery; obese abdomen; soft ) Extremities: No edema A/P Assessment and Plan 77 year old female with multiple medical problems; VDRF; POD1 trach placement -Continue routine trach care -Vent per CCM -Gastrostomy tube contraindicated due to delayed healing would on abdomen -Dobhoff in place -Recommend LTAC placement -GS will sign off; Please call with questions Attending Statement patient seen at bedside s/p trach, doing well unable to place due to contraindication of abdominal infection Attestation The exam, history, and the medical decision-making described in the above note were completed with the assistance of the mid-level provider. I reviewed and agree with the findings presented. I attest that I had a [id number] encounter with the patient on the same day, and personally performed and documented my assessment and findings in the medical record. Gloria Acevedo Jul 26, 2017 13:28 Deniz Espino MD Jul 30, 2017 19:06
[2017-07-26] MEDS: HYDROmorphone HCL PF 2 MG/ML VIAL IV PUSH PRN ×2 (15:17→22:53)
--- NOTE | 2017-07-26 15:17 | HHI.IDPN ---
Subjective Subjective Remarks chart was reviewed Patient is a 77-year-old female, brought into the hospital for further evaluation of worsening lethargy over the last 2 days. She also was found to be hypoglycemic there was apparently a chest x-ray done in the custodial and it showed some pneumonia. Patient has been in and out of the hospital mostly at 4 to [facility]. Looks like the last time she was tear was in June. Patient ended up getting intubated in the emergency room, and she was put on antibiotics for pneumonia, and was also found to have a urinary tract infection. A Eid was placed when she presented to the hospital. Patient was extubated about 2 days ago, and yesterday she deteriorated and ended up getting reintubated. She is afebrile. Her WBC had gone down to 3.5. She is currently awake, and breathing more comfortably. She doesn't have a lot of secretions from her endotracheal tube. Her hemodynamics are good. Infectious disease consultation has been requested to evaluate the patient with pneumonia. she grew out ESBL + E.coli from urine most recent blood clx negative @ 5 days Antibiotics cefepime Past Medical History Diabetes mellitus Hypertension Arrhythmia Hypothyroidism Seizure disorder Anxiety Depression Previous UTI Arthritis Past Surgical History Abdominal surgery in April, for free air, and he had cholecystectomy and appendectomy, but no real source of free air was found Previous tracheostomy and PEG placement, removed Abdominal wound, post surgery back in April, very slow to heal Back surgery Allergies: Coded Allergies: FRANCK Inhibitors (Verified Allergy, Unknown, 07/11/17) [id number] Reductase Inhibitor (Verified Allergy, Unknown, 07/11/17) Objective . Vital Signs Date Time Temp Pulse Resp B/P (MAP) Pulse Ox O2 Delivery O2 Flow Rate FiO2 07/26/17 12:04 100 40 07/26/17 10:00 52 07/26/17 08:46 100 40 07/26/17 08:00 40 07/26/17 08:00 52 07/26/17 08:00 97.1 68 16 106/50 (68) 100 07/26/17 06:00 60 07/26/17 04:42 100 40 07/26/17 04:01 97.6 68 19 115/58 (77) 100 07/26/17 04:00 40 07/26/17 04:00 67 07/26/17 02:00 65 07/26/17 00:01 98.0 62 22 116/53 (74) 100 07/26/17 00:00 40 07/26/17 00:00 63 07/25/17 23:58 100 40 07/25/17 22:00 57 07/25/17 21:37 100 40 07/25/17 20:01 97.7 55 19 110/54 (72) 100 07/25/17 20:00 55 07/25/17 20:00 40 07/25/17 18:00 52 07/25/17 16:00 97.4 51 16 124/58 (80) 100 07/25/17 16:00 51 07/25/17 16:00 40 07/25/17 15:58 100 40 07/26/17 07/26/17 07/27/17 15:00 23:00 07:00 Intake Total 136.24 ml Balance 136.24 ml Intake IV Total 136.24 ml . Laboratory Tests Test 07/25/17 03:40 07/26/17 03:44 White Blood Count 4.1 TH/MM3 4.5 TH/MM3 Red Blood Count 2.28 MIL/MM3 2.42 MIL/MM3 Hemoglobin 7.1 GM/DL 7.6 GM/DL Hematocrit 21.9 % 23.2 % Mean Corpuscular Volume 95.9 FL 95.8 FL Mean Corpuscular Hemoglobin 31.2 PG 31.2 PG Mean Corpuscular Hemoglobin Concent 32.5 % 32.6 % Red Cell Distribution Width 18.9 % 18.8 % Platelet Count 108 TH/MM3 116 TH/MM3 Mean Platelet Volume 9.6 FL 9.6 FL Laboratory Tests Test 07/24/17 15:40 07/25/17 03:40 07/26/17 03:44 Potassium Level 3.8 MEQ/L 3.5 MEQ/L 3.6 MEQ/L Blood Urea Nitrogen 37 MG/DL 32 MG/DL Creatinine 1.04 MG/DL 1.11 MG/DL Random Glucose 80 MG/DL 88 MG/DL Calcium Level 8.3 MG/DL 8.4 MG/DL Sodium Level 141 MEQ/L 140 MEQ/L Chloride Level 108 MEQ/L 108 MEQ/L Carbon Dioxide Level 23.4 MEQ/L 20.9 MEQ/L Anion Gap 10 MEQ/L 11 MEQ/L Estimat Glomerular Filtration Rate 52 ML/MIN 48 ML/MIN Imaging Last Impressions Abdomen X-Ray 07/25/17 0000 Signed Impressions: Service Date/Time: Tuesday, July 25, 2017 17:34 - CONCLUSION: Dobbhoff catheter tip in the distal stomach. Jasen Delvalle MD Abdomen/Pelvis CT 07/24/17 0000 Signed Impressions: Service Date/Time: Monday, July 24, 2017 14:57 - CONCLUSION: Pleural effusion and atelectasis right greater than left. Bowel gas pattern is unremarkable. No evidence of an abscess. Some induration anterior abdominal wall with some possible early fluid collection inferiorly within the lower pannus. Jame Preciado MD Chest X-Ray 07/21/17 0600 Signed Impressions: Service Date/Time: Friday, July 21, 2017 03:13 - CONCLUSION: Nasogastric tube now in place with the tip below the [id number] of the radiograph. No significant interval change in bilateral pulmonary opacity. Differential diagnosis includes pulmonary edema and infection. Angelito Lovett MD Head CT 07/11/17 1827 Signed Impressions: Service Date/Time: Tuesday, July 11, 2017 21:23 - CONCLUSION: No acute intracranial abnormality Jaden Clark MD Physical Exam GENERAL: intubated, not in respiratory distress. SKIN: Cool and dry. Edematous, has ecchymoses in both UE, no generalized rash HEAD: Atraumatic. Normocephalic. No temporal wasting, or tenderness. EYES: [place] conjunctiva. No petechia or hemorrhage. Pupils equal, round and reactive to light. Extraocular movements full and intact. No scleral icterus. No injection or drainage. EARS, NOSE AND THROAT: Nose without bleeding or purulent nasal discharge. No sinus tenderness. She is orally intubated. Moist oral mucosa. NECK: Trachea midline. Supple and not tender, no meningeal signs CARDIOVASCULAR: Regular rate and rhythm. Soft heart sounds. No murmurs, rubs or gallops heard RESPIRATORY: scattred rhonchi bilaterally. ABDOMEN: Soft, obese, non-tender, nondistended. Bowel sounds present and normoactive. No guarding. No rebound. No organomegaly.Dressing on abdominal wound, intact. EXTREMITIES: No clubbing, cyanosis, or edema.No joint effusion, has good ROM. No calf tenderness. Well perfused and warm. NEUROLOGICAL: Awake and alert. No facial asymmetry. Motor grossly within normal limits. PSYCHIATRIC: calm and cooperative. LINE: No evidence of infection Assessment & Plan Remarks IMPRESSION Recurrent respiratory failure, possibly with new VAP - C/S Enterobacter UTI, first UC with Kleb ESBL and Citrobacter - now with C albicans Neutropenia, ?due to new infection, ?meds - better Obesity RECOMMENDATION Continue IV cefepime to cover Enterobacter complete as indicated previously dc Diflucan Monitor progress OK to Xfer to LTAC will follow as needed dw Dr Steve Luciano,Carol Mead MD Jul 26, 2017 15:17
[2017-07-26] MEDS: AMITRIPTYLINE HCL 10 MG TAB PO SCH (20:06)
[2017-07-27] VITALS (20 sets, daily range): BP systolic 78–151; BP diastolic 41–65; PULSE 53–98; RESP 16–28; TEMP 97.1–97.8; O2SAT 93–100
[2017-07-27] MEDS: PROPOFOL 1000 MG/100 ML INJ 100 ML IV PRN (00:37)
[2017-07-27] MEDS: oxyCODONE HCL ORAL CONC 5 MG/0.25 ML SYRINGE PO PRN ×2 (00:46→13:27)
[2017-07-27] MEDS: CHLORHEXIDINE GLUCONATE 2 % 1 PACK (2 CLOTHS) TOP SCH (02:31)
[2017-07-27] MEDS: RESP: ACETYLCYSTEINE 10% 30 ML NEB NEB SCH ×2 (03:48→09:33)
[2017-07-27] MEDS: RESP: ALBUTEROL 2.5 MG/IPRATROPIUM 0.5 MG NEB (SCH) NEB ×4 (03:48→20:44)
[2017-07-27] MEDS: INSULIN NovoLIN REGULAR SUPPLEMENTAL SCALE SQ SCH ×4 (04:00→20:10)
[2017-07-27] MEDS: CEFEPIME INJ 2,000 MG in SODIUM CHLORIDE 0.9% INJ 100 ML IV SCH ×3 (05:17→20:09)
[2017-07-27] MEDS: LEVOTHYROXINE SODIUM 25 MCG TAB PO SCH (05:18)
[2017-07-27] MEDS: HYDROmorphone HCL PF 2 MG/ML VIAL IV PUSH PRN ×4 (05:18→20:46)
[2017-07-27 05:48] LABS: AUTOMATED NEUTROPHIL # 4.2 TH/MM3 (1.8-7.7); BASOPHIL % 0.4 % (0.0-2.0); EOSINOPHIL # 0.1 TH/MM3 (0-0.4); EOSINOPHIL % 2.3 % (0.0-4.0); HEMATOCRIT 23.7 % (35.0-46.0); HEMOGLOBIN 7.9 GM/DL (11.6-15.3); LYMPH % 6.8 % (9.0-44.0); LYMPHOCYTE # 0.3 TH/MM3 (1.0-4.8); MEAN CELL VOLUME 95.8 FL (80.0-100.0); MEAN CORPUSCULAR HEMOGLOBIN 32.1 PG (27.0-34.0); MEAN CORPUSCULAR HGB CONC 33.5 % (32.0-36.0); MEAN PLATELET VOLUME 9.9 FL (7.0-11.0); MONOCYTE # 0.3 TH/MM3 (0-0.9); NEUT % 83.5 % (16.0-70.0); PLATELET COUNT 122 TH/MM3 (150-450); RED BLOOD COUNT 2.48 MIL/MM3 (4.00-5.30); RED CELL DISTRIBUTION WIDTH 18.7 % (11.6-17.2)
[2017-07-27] MEDS: hydrALAZINE HCL 50 MG TAB PO SCH ×3 (06:00→20:08)
[2017-07-27 06:12] LABS: BICARBONATE 24.2 MEQ/L (21.0-32.0); CALCIUM 8.6 MG/DL (8.5-10.1); CREATININE 1.31 MG/DL (0.50-1.00); MAGNESIUM 2.3 MG/DL (1.5-2.5)
[2017-07-27 06:14] LABS: PHOSPHORUS 3.2 MG/DL (2.5-4.9)
[2017-07-27] MEDS ORDERED: METOCLOPRAMIDE HCL 10 MG/2 ML VIAL IV PUSH PRN (08:45)
--- NOTE | 2017-07-27 08:49 | HHI.CCPN ---
Subjective Remarks/Hospital Course 07/11: 77-year-old morbidly obese female patient [facility] in [facility], due to increased lethargy for the last 2 days, hypoglycemia early in the day with sugars of 44, given glucagon, chest x-ray showing a pneumonia according to facility staff, EMS noted the patient was fairly disoriented, GCS 6, and started bag valve masking her because of respiratory distress and hypoxia with sats in the 87% range despite oxygenation. Patient was brought in bag-valve- mask in progress and was immediately intubated in the emergency department by ED attending. 07/12: Sedated, orally intubated on mechanical ventilation. 07/13 Patient is sedated with Fentanyl and intubated. Afebrile. 07/14 No events overnight, Sedated with Fentanyl and Versed. Afebrile. Failed CPAP trials yesterday. 07/15 No events overnight. Sedated and intubated. ABG on CPAP yesterday showed resp acidosis with PH 7.22 and CO2: 58 07/16 Patient remains sedated and intubated 07/17. No events overnight. Remains sedated and intubated 07/18 Patient remains intubated off sedation. Afebrile. 07/19 Patient s/p extubation yesterday on BIPAP overnight. Awake. ABG last night showed resp acidosis with PH: 7.24, pCO2: 66 07/20 Patient was reintubated yesterday for resp failure. Sedated and intubated. Afebrile. 07/21: new HCAP with GNRs in sputum. persistent respiratory failure. likely will require long-term ventilation and slow wean. will consult general surgery for re-do trach and gastric access. 07/22: no changes. no improvements. gen surgery planning PEG/Trach next week. 07/23: sputum growing enterobacter; now on Cefepime per ID. neuro exam still stable, but fails weaning trials quickly. 07/24: no changes. still failing cpap and weaning trials. CT abd/pelvis done at gen surg request without overt abscess at prior peg site. 07/25: s/p trach today. doing well. still failing cpap. approved for LTAC. surgical contra-indication to PEG placement with induration at old PEG site: will use DHT for enteral access and tube feeds. ID giving final recs for duration of therapy. stable for discharge to LTAC when bed available. 07/26 No events overnight. Patient was rejected by [facility] this morning per director of casework department. Afebrile. 07/27 Patient is sedated with Diprivan and intubated. Afebrile. Objective Vital Signs Date Time Temp Pulse Resp B/P (MAP) Pulse Ox O2 Delivery O2 Flow Rate FiO2 07/27/17 06:00 92 07/27/17 04:01 97.7 28 112/55 (74) 100 07/27/17 04:00 35 Intake and Output 07/27/17 07/27/17 07/28/17 08:00 16:00 00:00 Intake Total 1599.0 ml Output Total 400 ml Balance 1199.0 ml Result Diagram: 07/27/17 0410 07/27/17 0410 Other Results Laboratory Tests Test 07/27/17 04:10 White Blood Count 5.0 TH/MM3 Red Blood Count 2.48 MIL/MM3 Hemoglobin 7.9 GM/DL Hematocrit 23.7 % Mean Corpuscular Volume 95.8 FL Mean Corpuscular Hemoglobin 32.1 PG Mean Corpuscular Hemoglobin Concent 33.5 % Red Cell Distribution Width 18.7 % Platelet Count 122 TH/MM3 Mean Platelet Volume 9.9 FL Neutrophils (%) (Auto) 83.5 % Lymphocytes (%) (Auto) 6.8 % Monocytes (%) (Auto) 7.0 % Eosinophils (%) (Auto) 2.3 % Basophils (%) (Auto) 0.4 % Neutrophils # (Auto) 4.2 TH/MM3 Lymphocytes # (Auto) 0.3 TH/MM3 Monocytes # (Auto) 0.3 TH/MM3 Eosinophils # (Auto) 0.1 TH/MM3 Basophils # (Auto) 0.0 TH/MM3 CBC Comment DIFF FINAL Differential Comment Blood Urea Nitrogen 37 MG/DL Creatinine 1.31 MG/DL Random Glucose 140 MG/DL Calcium Level 8.6 MG/DL Phosphorus Level 3.2 MG/DL Magnesium Level 2.3 MG/DL Sodium Level 140 MEQ/L Potassium Level 3.8 MEQ/L Chloride Level 107 MEQ/L Carbon Dioxide Level 24.2 MEQ/L Anion Gap 9 MEQ/L Estimat Glomerular Filtration Rate 40 ML/MIN Imaging Last Impressions Abdomen X-Ray 07/25/17 0000 Signed Impressions: Service Date/Time: Tuesday, July 25, 2017 17:34 - CONCLUSION: Dobbhoff catheter tip in the distal stomach. Jasen Delvalle MD Abdomen/Pelvis CT 07/24/17 0000 Signed Impressions: Service Date/Time: Monday, July 24, 2017 14:57 - CONCLUSION: Pleural effusion and atelectasis right greater than left. Bowel gas pattern is unremarkable. No evidence of an abscess. Some induration anterior abdominal wall with some possible early fluid collection inferiorly within the lower pannus. Jame Preciado MD Chest X-Ray 07/21/17 0600 Signed Impressions: Service Date/Time: Friday, July 21, 2017 03:13 - CONCLUSION: Nasogastric tube now in place with the tip below the [id number] of the radiograph. No significant interval change in bilateral pulmonary opacity. Differential diagnosis includes pulmonary edema and infection. Angelito Lovett MD Head CT 07/11/17 1827 Signed Impressions: Service Date/Time: Tuesday, July 11, 2017 21:23 - CONCLUSION: No acute intracranial abnormality Jaden Clark MD Objective Remarks GENERAL: Morbidly obese elderly female s/p trach SKIN: Warm and dry. HEAD: Normocephalic. EYES: No scleral icterus. No injection or drainage. NECK: trachea midline. large neck circumference prevents assessment of jvd. s/ p new trach. CARDIOVASCULAR: Regular rate and rhythm. RESPIRATORY: Orally intubated on mechanical ventilation. GASTROINTESTINAL: Abdomen soft, non-tender, nondistended. left non-healing ulcer area from prior PEG site. MUSCULOSKELETAL: No cyanosis, or edema. NEURO EXAM: RASS -1. sedated. follows commands. A/P Assessment and Plan Assessment: 77yF with morbid obesity and recurrent healthcare associated pneumonia and hypoxic respiratory failure. s/p trach 07/25. stable for transfer to LTAC. contra-indicated for PEG given recent peg site induration. will use DHT for long-term enteral nutrition. from an ID standpoint, would recommend full 7-10 day course of Cefepime iv for recurrent HCAP pneumonia, and 14 day course of iv antifungals. Plan Neuro: metabolic encephalopathy Seizure disorder Neuropathy On Diprivan infusion for sedation. Daily sedation vacation. Monitor neuro status. On Keppra 500mg Q12 oxycodone 10mg po q4h prn for pain. Pulm: Acute hypoxic and hypercarbic Respiratory failure Recurrent healthcare associated pneumonia Reintubated 07/19 Continue with vent support keep sat >92% Bronchodilators, ICU vent bundle. SBT daily as lisa s/p trach 07/[address] Srinivas Kennedy toilet, [facility]. Check ABG CV: History of hypertension On Hydralazine 50mg Q8-Monitor HR and BP keep MAP>65mmHg Amiodarone 200mg BID 2d echo 07/20: normal biventricular function, EF 60%, RVSP 47 mmHg. : Acute kidney injury - improving. Free water deficit Monitor renal function, electrolytes replacement as needed. GI: Morbid Obesity Acute protein calorie malnutrition- moderate Resume tube feeds- Glucerna 1.5with goal rate 65ml/hr, On roly Colace, Lactulose for bowel regimen. Place on Reglan 5mg IV Q8 PRN ICU electrolyte protocol ID: Recurrent HCAP pneumonia Urinary tract infection Continue cefepime. Diflucan d/c yesterday Urine cx: 07/11: Kleb ESBL, Citrobacter. Repeat urine cx 07/18 - Kirsten Albicans sputum cx: Enterobacter ID following. Heme: Anemia secondary to chronic disease Monitor CBC, on Ferrous sulfate and Folic acid Hep PLT ab -negative Endo: Hypothyroidism Hyperglycemia of Critical illness SSI medium scale for glycemic control GI prophylaxis- on Pepcid DVT prophylaxis- Heparin SQ Dispo: Awaiting placement in LTAC. Patient was rejected by [facility] . Level 2 Brittani Mercado MD Jul 27, 2017 08:49
[2017-07-27] MEDS: levETIRAcetam 500 MG/5 ML UDC NG SCH ×2 (09:00→20:08)
[2017-07-27] MEDS: SODIUM CHLORIDE 0.9% FLUSH 10 ML FLUSH IV FLUSH SCH ×2 (09:00→20:10)
[2017-07-27] MEDS: FERROUS SULFATE 300 MG /5ML UDC PO SCH ×2 (09:00→20:08)
[2017-07-27] MEDS: ARTIFICIAL TEARS OPTH SOLN 15 ML BTL EACH EYE SCH ×3 (09:00→17:52)
[2017-07-27] MEDS: COLLAGENASE OINT 30 GM TUBE TOPICAL SCH (09:00)
[2017-07-27] MEDS: ZINC SULFATE 220 MG CAP PO SCH (09:01)
[2017-07-27] MEDS: FAMOTIDINE 20 MG/2 ML VIAL IV PUSH SCH ×2 (09:01→20:08)
[2017-07-27] MEDS: AMIODARONE 200 MG TAB PO SCH ×2 (09:01→20:08)
[2017-07-27] MEDS: ASCORBIC ACID 500 MG TAB PO SCH ×2 (09:01→20:08)
[2017-07-27] MEDS: DOCUSATE SODIUM 50 MG/SENNA 8.6 MG TAB PO SCH ×2 (09:01→20:08)
[2017-07-27] MEDS: LACTULOSE SYRUP 20 GM/30 ML CUP PO SCH ×3 (09:01→17:52)
[2017-07-27] MEDS: busPIRone HCL 10 MG TAB PO SCH ×2 (09:02→20:08)
[2017-07-27] MEDS: FOLIC ACID 1 MG TAB PO SCH (09:02)
[2017-07-27] MEDS: MULTIVITAMIN TAB PO SCH (09:02)
[2017-07-27] MEDS: GABAPENTIN 300 MG CAP PO SCH (09:02)
--- NOTE | 2017-07-27 12:54 | MP ---
cc: DENIZ ESPINO MD DATE OF SURGERY 07/25/2017 PREOPERATIVE DIAGNOSIS Acute respiratory failure, feeding difficulties in an adult. POSTOPERATIVE DIAGNOSIS Acute respiratory failure, feeding difficulties in an adult. PROCEDURE PERFORMED Percutaneous tracheostomy under bronchoscopic surveillance. SURGEON Dr. Deniz Espion RESEARCH AND EVALUATION MANAGER See OR sheet. ANESTHESIA GETA. IV FLUIDS See anesthesia sheet. ESTIMATED BLOOD LOSS 5 cc. DRAINS None. COMPLICATIONS None. WOUND CLASSIFICATION Clean. FINDINGS Good end-tidal return following placement of tracheostomy, confirmation with bronchoscopy regarding correct placement. INDICATION The patient is a 77-year-old female who was admitted. She has multiple medical issues including morbid obesity and seizure disorder. The patient had prolonged hospitalization and acute care, found with intraperitoneal air and underwent surgery for this. She was unable to wean from the vent. At that time she had a tracheostomy which had been removed due to improvement. However, currently the patient became hypoglycemic and April Coma Scale of 6, therefore was intubated in the emergency department and on mechanical ventilation since and unable to wean again. Therefore needing both a tracheostomy and a possible gastrostomy tube. However, after full examination the patient is noted to have abdominal wound infection and concern for possible intraabdominal abscess. Therefore, currently at this time a PEG tube is unable to be placed due to its infection risk. Therefore proceeding with the tracheostomy only. DETAILS OF PROCEDURE The patient was taken to the operating suite, placed in supine position. She was prepped and draped in the usual sterile fashion to the neck. A brief time-out was done stating correct patient, procedure, surgical site. She already was maintained on ventilation. She also had a previous scar in tracheostomy site. Identification of the scar and tracheostomy site was done, local anesthetic injected at the tracheostomy site. Bronchoscopy placed and confirmed airway patency. Further dissection with electro Bovie cautery down to the midline trachea. Palpation of the cricothyroid and a tracheal rings noted that approximately second and third tracheal ring was palpated. The large bore needle with an Angiocath sheath was placed and aspirated until air was obtained. Again bronchoscopy confirmed the needle to be in correct position and place. The Angiocath was advanced, the needle was removed. The guidewire was then placed through the Angiocath and the Angiocath was removed. A small diameter punch was used in order to dilate the tract. Following this the Blue Rhino percutaneous dilator was done in order to further assist in dilation. Next, the tracheostomy was placed over a guidewire and directed to the trachea. The inner contents were removed along with the guidewire as well. Again bronchoscopy confirmed adequate placement. The inner cannula was placed and the vent was connected and got good end-tidal CO2 along with bilateral breath sounds. Used was a #8 cuff. The cuff was inflated. 3-0 Prolene sutures were placed in the four corners in order to secure the tracheostomy and the neck strap was also placed around in order for additional assistance with this. The patient tolerated the procedure well. All lap and instrument counts were correct at the end of the procedure. The patient was taken back to ICU. MD JEFFRY Krause/SSB /8:11 PM /12:19 PM
[2017-07-27] MEDS: AMITRIPTYLINE HCL 10 MG TAB PO SCH (20:08)
[2017-07-28] VITALS (19 sets, daily range): BP systolic 86–160; BP diastolic 44–82; PULSE 61–100; RESP 14–26; TEMP 97.6–98.7; O2SAT 97–100
[2017-07-28] MEDS: HYDROmorphone HCL PF 2 MG/ML VIAL IV PUSH PRN ×3 (00:26→08:08)
[2017-07-28] MEDS: ALPRAZolam 0.5 MG TAB PO PRN ×2 (00:26→04:11)
[2017-07-28] MEDS: hydrALAZINE HCL 20 MG/ML VIAL IV PUSH PRN (00:26)
[2017-07-28] MEDS: SODIUM CHLORIDE 0.9% FLUSH 10 ML FLUSH IV FLUSH PRN (00:26)
[2017-07-28] MEDS: RESP: ALBUTEROL 2.5 MG/IPRATROPIUM 0.5 MG NEB (SCH) NEB ×4 (03:37→19:29)
[2017-07-28] MEDS: CHLORHEXIDINE GLUCONATE 2 % 1 PACK (2 CLOTHS) TOP SCH (04:00)
[2017-07-28] MEDS: INSULIN NovoLIN REGULAR SUPPLEMENTAL SCALE SQ SCH ×4 (04:00→21:50)
[2017-07-28] MEDS: LEVOTHYROXINE SODIUM 25 MCG TAB PO SCH (04:11)
[2017-07-28] MEDS: CEFEPIME INJ 2,000 MG in SODIUM CHLORIDE 0.9% INJ 100 ML IV SCH ×3 (04:12→21:50)
[2017-07-28] MEDS: hydrALAZINE HCL 50 MG TAB PO SCH ×3 (04:12→21:49)
[2017-07-28 07:08] LABS: AUTOMATED NEUTROPHIL # 3.5 TH/MM3 (1.8-7.7); BASOPHIL % 0.5 % (0.0-2.0); EOSINOPHIL # 0.1 TH/MM3 (0-0.4); EOSINOPHIL % 2.6 % (0.0-4.0); HEMATOCRIT 21.8 % (35.0-46.0); HEMOGLOBIN 7.2 GM/DL (11.6-15.3); LYMPH % 6.6 % (9.0-44.0); LYMPHOCYTE # 0.3 TH/MM3 (1.0-4.8); MEAN CELL VOLUME 96.1 FL (80.0-100.0); MEAN CORPUSCULAR HEMOGLOBIN 31.7 PG (27.0-34.0); MEAN PLATELET VOLUME 9.9 FL (7.0-11.0); MONO % 9.8 % (0.0-8.0); MONOCYTE # 0.4 TH/MM3 (0-0.9); NEUT % 80.5 % (16.0-70.0); PLATELET COUNT 120 TH/MM3 (150-450); RED BLOOD COUNT 2.27 MIL/MM3 (4.00-5.30); RED CELL DISTRIBUTION WIDTH 19.1 % (11.6-17.2); WHITE BLOOD COUNT 4.4 TH/MM3 (4.0-11.0)
[2017-07-28 07:25] LABS: BICARBONATE 21.7 MEQ/L (21.0-32.0); CALCIUM 8.5 MG/DL (8.5-10.1); CREATININE 1.35 MG/DL (0.50-1.00)
[2017-07-28] MEDS: FERROUS SULFATE 300 MG /5ML UDC PO SCH ×2 (08:06→21:50)
[2017-07-28] MEDS: FOLIC ACID 1 MG TAB PO SCH (08:07)
[2017-07-28] MEDS: ZINC SULFATE 220 MG CAP PO SCH (08:07)
[2017-07-28] MEDS: busPIRone HCL 10 MG TAB PO SCH ×2 (08:07→21:49)
[2017-07-28] MEDS: LACTULOSE SYRUP 20 GM/30 ML CUP PO SCH ×3 (08:07→17:55)
[2017-07-28] MEDS: AMIODARONE 200 MG TAB PO SCH ×2 (08:07→21:00)
[2017-07-28] MEDS: MULTIVITAMIN TAB PO SCH (08:07)
[2017-07-28] MEDS: DOCUSATE SODIUM 50 MG/SENNA 8.6 MG TAB PO SCH ×2 (08:07→21:49)
[2017-07-28] MEDS: ASCORBIC ACID 500 MG TAB PO SCH ×2 (08:07→21:49)
[2017-07-28] MEDS: levETIRAcetam 500 MG/5 ML UDC NG SCH ×2 (08:07→21:50)
[2017-07-28] MEDS: GABAPENTIN 300 MG CAP PO SCH (08:07)
[2017-07-28] MEDS: SODIUM CHLORIDE 0.9% FLUSH 10 ML FLUSH IV FLUSH SCH ×2 (08:08→21:48)
[2017-07-28] MEDS: FAMOTIDINE 20 MG/2 ML VIAL IV PUSH SCH ×2 (08:08→21:49)
[2017-07-28] MEDS: COLLAGENASE OINT 30 GM TUBE TOPICAL SCH (08:08)
[2017-07-28] MEDS: ARTIFICIAL TEARS OPTH SOLN 15 ML BTL EACH EYE SCH ×3 (08:08→17:55)
--- NOTE | 2017-07-28 08:25 | HHI.CCPN ---
Subjective Remarks/Hospital Course 07/11: 77-year-old morbidly obese female patient sent in from [facility], due to increased lethargy for the last 2 days, hypoglycemia early in the day with sugars of 44, given glucagon, chest x-ray showing a pneumonia according to facility staff, EMS noted the patient was fairly disoriented, GCS 6, and started bag valve masking her because of respiratory distress and hypoxia with sats in the 87% range despite oxygenation. Patient was brought in bag-valve- mask in progress and was immediately intubated in the emergency department by ED attending. 07/12: Sedated, orally intubated on mechanical ventilation. 07/13 Patient is sedated with Fentanyl and intubated. Afebrile. 07/14 No events overnight, Sedated with Fentanyl and Versed. Afebrile. Failed CPAP trials yesterday. 07/15 No events overnight. Sedated and intubated. ABG on CPAP yesterday showed resp acidosis with PH 7.22 and CO2: 58 07/16 Patient remains sedated and intubated 07/17. No events overnight. Remains sedated and intubated 07/18 Patient remains intubated off sedation. Afebrile. 07/19 Patient s/p extubation yesterday on BIPAP overnight. Awake. ABG last night showed resp acidosis with PH: 7.24, pCO2: 66 07/20 Patient was reintubated yesterday for resp failure. Sedated and intubated. Afebrile. 07/21: new HCAP with GNRs in sputum. persistent respiratory failure. likely will require long-term ventilation and slow wean. will consult general surgery for re-do trach and gastric access. 07/22: no changes. no improvements. gen surgery planning PEG/Trach next week. 07/23: sputum growing enterobacter; now on Cefepime per ID. neuro exam still stable, but fails weaning trials quickly. 07/24: no changes. still failing cpap and weaning trials. CT abd/pelvis done at gen surg request without overt abscess at prior peg site. 07/25: s/p trach today. doing well. still failing cpap. approved for LTAC. surgical contra-indication to PEG placement with induration at old PEG site: will use DHT for enteral access and tube feeds. ID giving final recs for duration of therapy. stable for discharge to LTAC when bed available. 07/26 No events overnight. Patient was rejected by [facility] this morning per director of casework department. Afebrile. 07/27 Patient is sedated with Diprivan and intubated. Afebrile. 07/28 No events overnight. Off sedation. On ventilator via trach. Objective Vital Signs Date Time Temp Pulse Resp B/P (MAP) Pulse Ox O2 Delivery O2 Flow Rate FiO2 07/28/17 06:00 66 07/28/17 04:45 100 35 07/28/17 04:00 97.8 14 134/82 (99) Intake and Output 07/28/17 07/28/17 07/29/17 08:00 16:00 00:00 Intake Total 1462 ml Output Total 600 ml Balance 862 ml Result Diagram: 07/28/17 0546 07/28/17 0546 Other Results Laboratory Tests Test 07/27/17 09:18 07/28/17 05:45 07/28/17 05:46 Blood Gas Puncture Site LT RADIAL Blood Gas Patient Temperature 98.6 Blood Gas HCO3 23 mmol/L Blood Gas Base Excess -2.0 mmol/L Blood Gas Oxygen Saturation 95 % Arterial Blood pH 7.32 Arterial Blood Partial Pressure CO2 46 mmHg Arterial Blood Partial Pressure O2 113 mmHg Arterial Blood Oxygen Content 12.9 Vol % Arterial Blood Carboxyhemoglobin 1.7 % Arterial Blood Methemoglobin 1.4 % Blood Gas Hemoglobin 9.5 G/DL Oxygen Delivery Device VENTILATOR Blood Gas Ventilator Setting A/C 16/550/PEEP5 Blood Gas Inspired Oxygen 35 % Activated Partial Thromboplast Time 24.0 SEC White Blood Count 4.4 TH/MM3 Red Blood Count 2.27 MIL/MM3 Hemoglobin 7.2 GM/DL Hematocrit 21.8 % Mean Corpuscular Volume 96.1 FL Mean Corpuscular Hemoglobin 31.7 PG Mean Corpuscular Hemoglobin Concent 33.0 % Red Cell Distribution Width 19.1 % Platelet Count 120 TH/MM3 Mean Platelet Volume 9.9 FL Neutrophils (%) (Auto) 80.5 % Lymphocytes (%) (Auto) 6.6 % Monocytes (%) (Auto) 9.8 % Eosinophils (%) (Auto) 2.6 % Basophils (%) (Auto) 0.5 % Neutrophils # (Auto) 3.5 TH/MM3 Lymphocytes # (Auto) 0.3 TH/MM3 Monocytes # (Auto) 0.4 TH/MM3 Eosinophils # (Auto) 0.1 TH/MM3 Basophils # (Auto) 0.0 TH/MM3 CBC Comment DIFF FINAL Differential Comment Blood Urea Nitrogen 39 MG/DL Creatinine 1.35 MG/DL Random Glucose 127 MG/DL Calcium Level 8.5 MG/DL Sodium Level 140 MEQ/L Potassium Level 3.8 MEQ/L Chloride Level 108 MEQ/L Carbon Dioxide Level 21.7 MEQ/L Anion Gap 10 MEQ/L Estimat Glomerular Filtration Rate 38 ML/MIN Imaging Last Impressions Abdomen X-Ray 07/25/17 0000 Signed Impressions: Service Date/Time: Tuesday, July 25, 2017 17:34 - CONCLUSION: Dobbhoff catheter tip in the distal stomach. Jasen Delvalle MD Abdomen/Pelvis CT 07/24/17 0000 Signed Impressions: Service Date/Time: Monday, July 24, 2017 14:57 - CONCLUSION: Pleural effusion and atelectasis right greater than left. Bowel gas pattern is unremarkable. No evidence of an abscess. Some induration anterior abdominal wall with some possible early fluid collection inferiorly within the lower pannus. Jame Preciado MD Chest X-Ray 07/21/17 0600 Signed Impressions: Service Date/Time: Friday, July 21, 2017 03:13 - CONCLUSION: Nasogastric tube now in place with the tip below the [id number] of the radiograph. No significant interval change in bilateral pulmonary opacity. Differential diagnosis includes pulmonary edema and infection. Angelito Lovett MD Head CT 07/11/17 1827 Signed Impressions: Service Date/Time: Tuesday, July 11, 2017 21:23 - CONCLUSION: No acute intracranial abnormality Jaden Clark MD Objective Remarks GENERAL: Morbidly obese elderly female s/p trach SKIN: Warm and dry. HEAD: Normocephalic. EYES: No scleral icterus. No injection or drainage. NECK: trachea midline. large neck circumference prevents assessment of jvd. s/ p new trach. CARDIOVASCULAR: Regular rate and rhythm. RESPIRATORY: Orally intubated on mechanical ventilation. GASTROINTESTINAL: Abdomen soft, non-tender, nondistended. left non-healing ulcer area from prior PEG site. MUSCULOSKELETAL: No cyanosis, or edema. NEURO EXAM: RASS -1. sedated. follows commands. A/P Assessment and Plan Assessment: 77yF with morbid obesity and recurrent healthcare associated pneumonia and hypoxic respiratory failure. s/p trach 07/25. stable for transfer to LTAC. contra-indicated for PEG given recent peg site induration. will use DHT for long-term enteral nutrition. from an ID standpoint, would recommend full 7-10 day course of Cefepime iv for recurrent HCAP pneumonia, and 14 day course of iv antifungals. Plan Neuro: metabolic encephalopathy Seizure disorder Neuropathy Off sedation. Monitor neuro status. On Keppra 500mg Q12 oxycodone 10mg po q4h prn for pain. Pulm: Acute hypoxic and hypercarbic Respiratory failure Recurrent healthcare associated pneumonia Reintubated 07/19 Continue with vent support keep sat >92% Bronchodilators, ICU vent bundle. SBT daily as lisa s/p trach 07[facility] [facility] CV: History of hypertension On Hydralazine 50mg Q8-Monitor HR and BP keep MAP>65mmHg Amiodarone 200mg BID 2d echo 07/20: normal biventricular function, EF 60%, RVSP 47 mmHg. : Acute kidney injury - improving. Free water deficit Monitor renal function, electrolytes replacement as needed. Diurese with Lsix 40mg x1 GI: Morbid Obesity Acute protein calorie malnutrition- moderate On tube feeds- Glucerna 1.5with goal rate 65ml/hr, On roly Colace, Lactulose for bowel regimen. On Reglan 5mg IV Q8 PRN ICU electrolyte protocol ID: Recurrent HCAP pneumonia Urinary tract infection Continue cefepime. Urine cx: 07/11: Kleb ESBL, Citrobacter. Repeat urine cx 07/18 - Kirsten Albicans sputum cx: Enterobacter ID following. Heme: Anemia secondary to chronic disease Monitor CBC, on Ferrous sulfate and Folic acid Hep PLT ab -negative Endo: Hypothyroidism Hyperglycemia of Critical illness SSI medium scale for glycemic control GI prophylaxis- on Pepcid DVT prophylaxis- Heparin SQ Dispo: Awaiting placement in LTAC. Patient was rejected by [facility] . Level 2 Brittani Mercado MD Jul 28, 2017 08:25
[2017-07-28] MEDS ORDERED: FUROSEMIDE 40 MG/4 ML VIAL IV PUSH ONE (08:30)
[2017-07-28] MEDS ORDERED: HALOPERIDOL LACTATE 5 MG/ML AMP IV PUSH ONE (08:45)
[2017-07-28 20:35] LABS: HEMATOCRIT 23.8 % (35.0-46.0); HEMOGLOBIN 7.9 GM/DL (11.6-15.3)
[2017-07-28] MEDS: AMITRIPTYLINE HCL 10 MG TAB PO SCH (21:49)
[2017-07-29] VITALS (20 sets, daily range): BP systolic 102–148; BP diastolic 55–81; PULSE 64–101; RESP 18–33; TEMP 97.1–99.1; O2SAT 100
[2017-07-29] MEDS: HYDROmorphone HCL PF 2 MG/ML VIAL IV PUSH PRN (00:37)
[2017-07-29] MEDS: RESP: ALBUTEROL 2.5 MG/IPRATROPIUM 0.5 MG NEB (SCH) NEB ×3 (03:27→16:42)
[2017-07-29] MEDS: INSULIN NovoLIN REGULAR SUPPLEMENTAL SCALE SQ SCH ×4 (04:00→22:00)
[2017-07-29] MEDS: CHLORHEXIDINE GLUCONATE 2 % 1 PACK (2 CLOTHS) TOP SCH (04:00)
[2017-07-29] MEDS: LEVOTHYROXINE SODIUM 25 MCG TAB PO SCH (05:01)
[2017-07-29] MEDS: hydrALAZINE HCL 50 MG TAB PO SCH (05:01)
[2017-07-29] MEDS: CEFEPIME INJ 2,000 MG in SODIUM CHLORIDE 0.9% INJ 100 ML IV SCH ×3 (05:01→21:20)
[2017-07-29 07:06] LABS: BASOPHIL % 0.6 % (0.0-2.0); EOSINOPHIL # 0.1 TH/MM3 (0-0.4); EOSINOPHIL % 2.3 % (0.0-4.0); HEMATOCRIT 22.5 % (35.0-46.0); HEMOGLOBIN 7.5 GM/DL (11.6-15.3); LYMPH % 7.2 % (9.0-44.0); LYMPHOCYTE # 0.4 TH/MM3 (1.0-4.8); MEAN CELL VOLUME 95.6 FL (80.0-100.0); MEAN CORPUSCULAR HEMOGLOBIN 31.9 PG (27.0-34.0); MEAN CORPUSCULAR HGB CONC 33.4 % (32.0-36.0); MEAN PLATELET VOLUME 9.3 FL (7.0-11.0); MONO % 8.9 % (0.0-8.0); MONOCYTE # 0.4 TH/MM3 (0-0.9); PLATELET COUNT 151 TH/MM3 (150-450); RED BLOOD COUNT 2.35 MIL/MM3 (4.00-5.30); RED CELL DISTRIBUTION WIDTH 18.9 % (11.6-17.2); WHITE BLOOD COUNT 4.9 TH/MM3 (4.0-11.0)
[2017-07-29 07:23] LABS: BICARBONATE 23.5 MEQ/L (21.0-32.0); CALCIUM 8.9 MG/DL (8.5-10.1); CREATININE 1.58 MG/DL (0.50-1.00)
[2017-07-29] MEDS: GABAPENTIN 300 MG CAP PO SCH (08:37)
[2017-07-29] MEDS: ZINC SULFATE 220 MG CAP PO SCH (08:37)
[2017-07-29] MEDS: busPIRone HCL 10 MG TAB PO SCH ×2 (08:37→21:18)
[2017-07-29] MEDS: AMIODARONE 200 MG TAB PO SCH ×3 (08:37→21:18)
[2017-07-29] MEDS: ASCORBIC ACID 500 MG TAB PO SCH ×2 (08:37→21:18)
[2017-07-29] MEDS: LACTULOSE SYRUP 20 GM/30 ML CUP PO SCH ×3 (08:37→16:57)
[2017-07-29] MEDS: DOCUSATE SODIUM 50 MG/SENNA 8.6 MG TAB PO SCH ×2 (08:37→21:18)
[2017-07-29] MEDS: FERROUS SULFATE 300 MG /5ML UDC PO SCH ×2 (08:37→21:19)
[2017-07-29] MEDS: levETIRAcetam 500 MG/5 ML UDC NG SCH ×2 (08:37→21:18)
[2017-07-29] MEDS: FOLIC ACID 1 MG TAB PO SCH (08:37)
[2017-07-29] MEDS: MULTIVITAMIN TAB PO SCH (08:37)
[2017-07-29] MEDS: ARTIFICIAL TEARS OPTH SOLN 15 ML BTL EACH EYE SCH ×3 (08:38→16:57)
[2017-07-29] MEDS: COLLAGENASE OINT 30 GM TUBE TOPICAL SCH (08:38)
[2017-07-29] MEDS: FAMOTIDINE 20 MG/2 ML VIAL IV PUSH SCH ×2 (08:38→21:19)
[2017-07-29] MEDS: SODIUM CHLORIDE 0.9% FLUSH 10 ML FLUSH IV FLUSH SCH ×2 (08:38→21:19)
[2017-07-29] MEDS ORDERED: SODIUM CHLOR 0.9% 1000 ML INJ 1,000 ML IV SCH (09:45)
--- NOTE | 2017-07-29 09:47 | HHI.CCPN ---
Subjective Remarks/Hospital Course 07/11: 77-year-old morbidly obese female patient sent in from longterm, due to increased lethargy for the last 2 days, hypoglycemia early in the day with sugars of 44, given glucagon, chest x-ray showing a pneumonia according to facility staff, EMS noted the patient was fairly disoriented, GCS 6, and started bag valve masking her because of respiratory distress and hypoxia with sats in the 87% range despite oxygenation. Patient was brought in bag-valve- mask in progress and was immediately intubated in the emergency department by ED attending. 07/12: Sedated, orally intubated on mechanical ventilation. 07/13 Patient is sedated with Fentanyl and intubated. Afebrile. 07/14 No events overnight, Sedated with Fentanyl and Versed. Afebrile. Failed CPAP trials yesterday. 07/15 No events overnight. Sedated and intubated. ABG on CPAP yesterday showed resp acidosis with PH 7.22 and CO2: 58 07/16 Patient remains sedated and intubated 07/17. No events overnight. Remains sedated and intubated 07/18 Patient remains intubated off sedation. Afebrile. 07/19 Patient s/p extubation yesterday on BIPAP overnight. Awake. ABG last night showed resp acidosis with PH: 7.24, pCO2: 66 07/20 Patient was reintubated yesterday for resp failure. Sedated and intubated. Afebrile. 07/21: new HCAP with GNRs in sputum. persistent respiratory failure. likely will require long-term ventilation and slow wean. will consult general surgery for re-do trach and gastric access. 07/22: no changes. no improvements. gen surgery planning PEG/Trach next week. 07/23: sputum growing enterobacter; now on Cefepime per ID. neuro exam still stable, but fails weaning trials quickly. 07/24: no changes. still failing cpap and weaning trials. CT abd/pelvis done at gen surg request without overt abscess at prior peg site. 07/25: s/p trach today. doing well. still failing cpap. approved for LTAC. surgical contra-indication to PEG placement with induration at old PEG site: will use DHT for enteral access and tube feeds. ID giving final recs for duration of therapy. stable for discharge to LTAC when bed available. 07/26 No events overnight. Patient was rejected by [facility] this morning per shoe parts caser. Afebrile. 07/27 Patient is sedated with Diprivan and intubated. Afebrile. 07/28 No events overnight. Off sedation. On ventilator via trach. 07/29 No events overnight. Tolerated CPAP for most f day yesterday. Afebrile. Objective Vital Signs Date Time Temp Pulse Resp B/P (MAP) Pulse Ox O2 Delivery O2 Flow Rate FiO2 07/29/17 08:10 100 35 07/29/17 08:00 91 07/29/17 08:00 98.3 18 115/56 (75) Intake and Output 07/29/17 07/29/17 07/30/17 08:00 16:00 00:00 Intake Total 689 ml Output Total 600 ml Balance 89 ml Result Diagram: 07/29/1728 07/29/17627 Other Results Laboratory Tests Test 07/28/17 19:56 07/29/17 06:28 Hemoglobin 7.9 GM/DL 7.5 GM/DL Hematocrit 23.8 % 22.5 % White Blood Count 4.9 TH/MM3 Red Blood Count 2.35 MIL/MM3 Mean Corpuscular Volume 95.6 FL Mean Corpuscular Hemoglobin 31.9 PG Mean Corpuscular Hemoglobin Concent 33.4 % Red Cell Distribution Width 18.9 % Platelet Count 151 TH/MM3 Mean Platelet Volume 9.3 FL Neutrophils (%) (Auto) 81.0 % Lymphocytes (%) (Auto) 7.2 % Monocytes (%) (Auto) 8.9 % Eosinophils (%) (Auto) 2.3 % Basophils (%) (Auto) 0.6 % Neutrophils # (Auto) 4.0 TH/MM3 Lymphocytes # (Auto) 0.4 TH/MM3 Monocytes # (Auto) 0.4 TH/MM3 Eosinophils # (Auto) 0.1 TH/MM3 Basophils # (Auto) 0.0 TH/MM3 CBC Comment DIFF FINAL Differential Comment Blood Urea Nitrogen 45 MG/DL Creatinine 1.58 MG/DL Random Glucose 163 MG/DL Calcium Level 8.9 MG/DL Sodium Level 139 MEQ/L Potassium Level 4.2 MEQ/L Chloride Level 108 MEQ/L Carbon Dioxide Level 23.5 MEQ/L Anion Gap 8 MEQ/L Estimat Glomerular Filtration Rate 32 ML/MIN Imaging Last Impressions Abdomen X-Ray 07/25/17 0000 Signed Impressions: Service Date/Time: Tuesday, July 25, 2017 17:34 - CONCLUSION: Dobbhoff catheter tip in the distal stomach. Jasen Delvalle MD Abdomen/Pelvis CT 07/24/17 0000 Signed Impressions: Service Date/Time: Monday, July 24, 2017 14:57 - CONCLUSION: Pleural effusion and atelectasis right greater than left. Bowel gas pattern is unremarkable. No evidence of an abscess. Some induration anterior abdominal wall with some possible early fluid collection inferiorly within the lower pannus. Jame Preciado MD Chest X-Ray 07/21/17 0600 Signed Impressions: Service Date/Time: Friday, July 21, 2017 03:13 - CONCLUSION: Nasogastric tube now in place with the tip below the [id number] of the radiograph. No significant interval change in bilateral pulmonary opacity. Differential diagnosis includes pulmonary edema and infection. Angelito Lovett MD Head CT 07/11/17 1827 Signed Impressions: Service Date/Time: Tuesday, July 11, 2017 21:23 - CONCLUSION: No acute intracranial abnormality Jaden Clark MD Objective Remarks GENERAL: Morbidly obese elderly female s/p trach SKIN: Warm and dry. HEAD: Normocephalic. EYES: No scleral icterus. No injection or drainage. NECK: trachea midline. trach in place CARDIOVASCULAR: Regular rate and rhythm. RESPIRATORY: Orally intubated on mechanical ventilation. GASTROINTESTINAL: Abdomen soft, non-tender, nondistended. left non-healing ulcer area from prior PEG site. MUSCULOSKELETAL: No cyanosis, or edema. Neuro: Intubated A/P Assessment and Plan Assessment: 77yF with morbid obesity and recurrent healthcare associated pneumonia and hypoxic respiratory failure. s/p trach 07/25. stable for transfer to LTAC. contra-indicated for PEG given recent peg site induration. will use DHT for long-term enteral nutrition. from an ID standpoint, would recommend full 7-10 day course of Cefepime iv for recurrent HCAP pneumonia, and 14 day course of iv antifungals. Plan Neuro: metabolic encephalopathy Seizure disorder Neuropathy Off sedation. Monitor neuro status. On Keppra 500mg Q12 oxycodone 10mg po q4h prn for pain. Pulm: Acute hypoxic and hypercarbic Respiratory failure Recurrent healthcare associated pneumonia Reintubated 07/19 Continue with vent support keep sat >92% Bronchodilators, ICU vent bundle. SBT daily as lisa s/p trach 07/[address] Srinivas Kennedy [facility]. CV: History of hypertension Monitor HR and BP keep MAP>65mmHg Amiodarone 200mg BID 2d echo 07/20: normal biventricular function, EF 60%, RVSP 47 mmHg. : Acute kidney injury - improving. Free water deficit Monitor renal function, electrolytes replacement as needed. Cr: 1.58 from 1.35/ Place on NS@84ml/hr x 1 liter GI: Morbid Obesity Acute protein calorie malnutrition- moderate On tube feeds- Glucerna 1.5with goal rate 65ml/hr, On roly Colace, Lactulose for bowel regimen. On Reglan 5mg IV Q8 PRN ICU electrolyte protocol ID: Recurrent HCAP pneumonia Urinary tract infection Continue cefepime. Urine cx: 07/11: Kleb ESBL, Citrobacter. Repeat urine cx 07/18 - Kirsten Albicans sputum cx: Enterobacter ID following. Heme: Anemia secondary to chronic disease Monitor CBC, on Ferrous sulfate and Folic acid Hep PLT ab -negative Endo: Hypothyroidism Hyperglycemia of Critical illness SSI medium scale for glycemic control GI prophylaxis- on Pepcid DVT prophylaxis- Heparin SQ Dispo: Awaiting placement in LTAC. Patient was rejected by [facility] . Level 2 Brittani Mercado MD Jul 29, 2017 09:47
[2017-07-29] MEDS: AMITRIPTYLINE HCL 10 MG TAB PO SCH (21:19)
[2017-07-30] VITALS (19 sets, daily range): BP systolic 111–147; BP diastolic 57–80; PULSE 65–100; RESP 17–31; TEMP 97.9–99.2; O2SAT 93–100
[2017-07-30] MEDS: CHLORHEXIDINE GLUCONATE 2 % 1 PACK (2 CLOTHS) TOP SCH (04:00)
[2017-07-30] MEDS: INSULIN NovoLIN REGULAR SUPPLEMENTAL SCALE SQ SCH ×4 (04:00→21:36)
--- NOTE | 2017-07-30 04:50 | RADRPT ---
EXAM DATE/TIME: 07/30/2017 02:49 [facility] COMPARISON: CHEST SINGLE AP, July 21, 2017, 3:13. INDICATIONS : Shortness of breath, possible pulmonary disease. MEDICAL HISTORY : Hypertension. Diabetes mellitus type II. SURGICAL HISTORY : Cholecystectomy. Appendectomy. ENCOUNTER: Subsequent ACUITY: 1 month PAIN SCORE: Non-responsive. LOCATION: Bilateral chest FINDINGS: There is mild degree of perivascular pulmonary edema and slight cardiomegaly. Focal consolidation is not seen. The rest of the examination has not significantly changed. CONCLUSION: Probable mild CHF. Aldair Ziegler MD on July 30, 2017 at 4:48 Board Certified Radiologist. This report was verified electronically.
[2017-07-30] MEDS: CEFEPIME INJ 2,000 MG in SODIUM CHLORIDE 0.9% INJ 100 ML IV SCH ×3 (05:07→21:34)
[2017-07-30] MEDS: LEVOTHYROXINE SODIUM 25 MCG TAB PO SCH (05:07)
[2017-07-30 06:43] LABS: AUTOMATED NEUTROPHIL # 3.4 TH/MM3 (1.8-7.7); BASOPHIL % 0.5 % (0.0-2.0); EOSINOPHIL # 0.1 TH/MM3 (0-0.4); LYMPH % 11.4 % (9.0-44.0); LYMPHOCYTE # 0.5 TH/MM3 (1.0-4.8); MEAN CELL VOLUME 95.7 FL (80.0-100.0); MEAN CORPUSCULAR HEMOGLOBIN 31.5 PG (27.0-34.0); MEAN PLATELET VOLUME 9.2 FL (7.0-11.0); MONO % 11.3 % (0.0-8.0); MONOCYTE # 0.5 TH/MM3 (0-0.9); NEUT % 73.8 % (16.0-70.0); PLATELET COUNT 122 TH/MM3 (150-450); RED BLOOD COUNT 2.16 MIL/MM3 (4.00-5.30); RED CELL DISTRIBUTION WIDTH 18.8 % (11.6-17.2); WHITE BLOOD COUNT 4.5 TH/MM3 (4.0-11.0)
[2017-07-30 06:56] LABS: HEMOGLOBIN 6.8 GM/DL (11.6-15.3)
[2017-07-30 06:57] LABS: HEMATOCRIT 20.7 % (35.0-46.0)
[2017-07-30 07:02] LABS: BICARBONATE 23.4 MEQ/L (21.0-32.0); CALCIUM 8.6 MG/DL (8.5-10.1); CREATININE 1.64 MG/DL (0.50-1.00); MAGNESIUM 2.5 MG/DL (1.5-2.5); PHOSPHORUS 2.2 MG/DL (2.5-4.9)
[2017-07-30] MEDS ORDERED: SODIUM CHLOR 0.9% 250 ML INJ 250 ML IV ONE (07:15)
[2017-07-30] MEDS: SODIUM CHLORIDE 0.9% FLUSH 10 ML FLUSH IV FLUSH SCH ×2 (08:19→21:34)
[2017-07-30] MEDS: DOCUSATE SODIUM 50 MG/SENNA 8.6 MG TAB PO SCH ×2 (08:20→21:35)
[2017-07-30] MEDS: AMIODARONE 200 MG TAB PO SCH ×2 (08:20→21:35)
[2017-07-30] MEDS: SODIUM CHLORIDE 0.9% FLUSH 10 ML FLUSH IV FLUSH PRN (08:20)
[2017-07-30] MEDS: FAMOTIDINE 20 MG/2 ML VIAL IV PUSH SCH ×2 (08:21→21:34)
[2017-07-30] MEDS: levETIRAcetam 500 MG/5 ML UDC NG SCH ×2 (08:23→21:35)
[2017-07-30] MEDS: LACTULOSE SYRUP 20 GM/30 ML CUP PO SCH ×3 (08:23→18:00)
[2017-07-30] MEDS: FERROUS SULFATE 300 MG /5ML UDC PO SCH ×2 (08:23→21:35)
[2017-07-30] MEDS: GABAPENTIN 300 MG CAP PO SCH (08:24)
[2017-07-30] MEDS: ARTIFICIAL TEARS OPTH SOLN 15 ML BTL EACH EYE SCH ×3 (08:24→18:39)
[2017-07-30] MEDS: FOLIC ACID 1 MG TAB PO SCH (08:24)
[2017-07-30] MEDS: ASCORBIC ACID 500 MG TAB PO SCH ×2 (08:24→21:35)
[2017-07-30] MEDS: MULTIVITAMIN TAB PO SCH (08:24)
[2017-07-30] MEDS: busPIRone HCL 10 MG TAB PO SCH ×2 (08:24→21:35)
[2017-07-30] MEDS: ZINC SULFATE 220 MG CAP PO SCH (08:24)
[2017-07-30] MEDS: COLLAGENASE OINT 30 GM TUBE TOPICAL SCH (08:25)
[2017-07-30] MEDS: HYDROmorphone HCL PF 2 MG/ML VIAL IV PUSH PRN (13:52)
--- NOTE | 2017-07-30 13:58 | HHI.CCPN ---
Subjective Remarks/Hospital Course 07/11: 77-year-old morbidly obese female patient sent in from half-way, due to increased lethargy for the last 2 days, hypoglycemia early in the day with sugars of 44, given glucagon, chest x-ray showing a pneumonia according to facility staff, EMS noted the patient was fairly disoriented, GCS 6, and started bag valve masking her because of respiratory distress and hypoxia with sats in the 87% range despite oxygenation. Patient was brought in bag-valve- mask in progress and was immediately intubated in the emergency department by ED attending. 07/12: Sedated, orally intubated on mechanical ventilation. 07/13 Patient is sedated with Fentanyl and intubated. Afebrile. 07/14 No events overnight, Sedated with Fentanyl and Versed. Afebrile. Failed CPAP trials yesterday. 07/15 No events overnight. Sedated and intubated. ABG on CPAP yesterday showed resp acidosis with PH 7.22 and CO2: 58 07/16 Patient remains sedated and intubated 07/17. No events overnight. Remains sedated and intubated 07/18 Patient remains intubated off sedation. Afebrile. 07/19 Patient s/p extubation yesterday on BIPAP overnight. Awake. ABG last night showed resp acidosis with PH: 7.24, pCO2: 66 07/20 Patient was reintubated yesterday for resp failure. Sedated and intubated. Afebrile. 07/21: new HCAP with GNRs in sputum. persistent respiratory failure. likely will require long-term ventilation and slow wean. will consult general surgery for re-do trach and gastric access. 07/22: no changes. no improvements. gen surgery planning PEG/Trach next week. 07/23: sputum growing enterobacter; now on Cefepime per ID. neuro exam still stable, but fails weaning trials quickly. 07/24: no changes. still failing cpap and weaning trials. CT abd/pelvis done at gen surg request without overt abscess at prior peg site. 07/25: s/p trach today. doing well. still failing cpap. approved for LTAC. surgical contra-indication to PEG placement with induration at old PEG site: will use DHT for enteral access and tube feeds. ID giving final recs for duration of therapy. stable for discharge to LTAC when bed available. 07/26 No events overnight. Patient was rejected by [facility] this morning per director of casework services. Afebrile. 07/27 Patient is sedated with Diprivan and intubated. Afebrile. 07/28 No events overnight. Off sedation. On ventilator via trach. 07/29 No events overnight. Tolerated CPAP for most f day yesterday. Afebrile. 07/30: Remains on mechanical ventilation via tracheostomy. Drowsy/ encephalopathic Objective Vital Signs Date Time Temp Pulse Resp B/P (MAP) Pulse Ox O2 Delivery O2 Flow Rate FiO2 07/30/17 12:00 100 07/30/17 11:43 99 35 07/30/17 08:00 98.8 22 147/80 (102) 07/29/17 22:58 Ventilator Intake and Output 07/30/17 07/30/17 07/31/17 08:00 16:00 00:00 Intake Total 1394 ml 30 ml Output Total 800 ml Balance 594 ml 30 ml Result Diagram: 07/30/17 0500 07/30/17 0500 Imaging Last Impressions Abdomen X-Ray 07/25/17 0000 Signed Impressions: Service Date/Time: Tuesday, July 25, 2017 17:34 - CONCLUSION: Dobbhoff catheter tip in the distal stomach. Jasen Delvalle MD Abdomen/Pelvis CT 07/24/17 0000 Signed Impressions: Service Date/Time: Monday, July 24, 2017 14:57 - CONCLUSION: Pleural effusion and atelectasis right greater than left. Bowel gas pattern is unremarkable. No evidence of an abscess. Some induration anterior abdominal wall with some possible early fluid collection inferiorly within the lower pannus. Jame Preciado MD Chest X-Ray 07/21/17 0600 Signed Impressions: Service Date/Time: Friday, July 21, 2017 03:13 - CONCLUSION: Nasogastric tube now in place with the tip below the [id number] of the radiograph. No significant interval change in bilateral pulmonary opacity. Differential diagnosis includes pulmonary edema and infection. Angelito Lovett MD Head CT 07/11/17 2827 Signed Impressions: Service Date/Time: Tuesday, July 11, 2017 21:23 - CONCLUSION: No acute intracranial abnormality Jaden Clark MD Objective Remarks GENERAL: Morbidly obese elderly female s/p trach SKIN: Warm and dry. HEAD: Normocephalic. EYES: No scleral icterus. No injection or drainage. NECK: trachea midline. trach in place CARDIOVASCULAR: Regular rate and rhythm. RESPIRATORY: Orally intubated on mechanical ventilation. GASTROINTESTINAL: Abdomen soft, non-tender, nondistended. left non-healing ulcer area from prior PEG site. MUSCULOSKELETAL: No cyanosis, or edema. Neuro: Encephalopathic, drowsy, not following commands, on mechanical ventilation via tracheostomy A/P Assessment and Plan Assessment: 77yF with morbid obesity and recurrent healthcare associated pneumonia and hypoxic respiratory failure. s/p trach 07/25. stable for transfer to LTAC. contra-indicated for PEG given recent peg site induration. will use DHT for long-term enteral nutrition. from an ID standpoint, would recommend 10 day course of Cefepime iv for recurrent HCAP pneumonia, and 14 day course of iv antifungals. Plan Neuro: metabolic encephalopathy Seizure disorder Neuropathy Off sedation. Monitor neuro status. On Keppra 500mg Q12 oxycodone 10mg po q4h prn for pain. Pulm: Acute hypoxic and hypercarbic Respiratory failure Recurrent healthcare associated pneumonia Reintubated 07/19 Continue with vent support keep sat >92% Bronchodilators, ICU vent bundle. SBT daily as lisa s/p trach 07/[address] [facility]. CV: History of hypertension Monitor HR and BP keep MAP>65mmHg Amiodarone 200mg BID 2d echo 07/20: normal biventricular function, EF 60%, RVSP 47 mmHg. : Acute kidney injury - improving. Free water deficit Monitor renal function, electrolytes replacement as needed. Cr: improving. NS@84ml/hr x 1 liter GI: Morbid Obesity Acute protein calorie malnutrition- moderate On tube feeds- Glucerna 1.5with goal rate 65ml/hr, On roly Colace, Lactulose for bowel regimen. On Reglan 5mg IV Q8 PRN ICU electrolyte protocol ID: Recurrent HCAP pneumonia Urinary tract infection Continue cefepime. Urine cx: 07/11: Kleb ESBL, Citrobacter. Repeat urine cx 07/18 - Kirsten Albicans sputum cx: Enterobacter ID following. Heme: Anemia secondary to chronic disease Monitor CBC, on Ferrous sulfate and Folic acid Hep PLT ab -negative 1 unit PRBCs ordered on 07/30 for hemoglobin 7.2, no evidence of melena or rectal bleeding. Endo: Hypothyroidism Hyperglycemia of Critical illness SSI medium scale for glycemic control GI prophylaxis- on Pepcid DVT prophylaxis- Heparin SQ Dispo: Awaiting placement in LTAC. Patient was rejected by [place] [facility] . Level 2 Gerard Zepeda MD Jul 30, 2017 13:58
[2017-07-30] MEDS: AMITRIPTYLINE HCL 10 MG TAB PO SCH (21:35)
[2017-07-31] VITALS (18 sets, daily range): BP systolic 100–203; BP diastolic 48–94; PULSE 59–91; RESP 16–22; TEMP 97.2–98.5; O2SAT 100
[2017-07-31] MEDS: INSULIN NovoLIN REGULAR SUPPLEMENTAL SCALE SQ SCH ×4 (04:00→22:00)
[2017-07-31] MEDS: CHLORHEXIDINE GLUCONATE 2 % 1 PACK (2 CLOTHS) TOP SCH (04:00)
[2017-07-31] MEDS: CEFEPIME INJ 2,000 MG in SODIUM CHLORIDE 0.9% INJ 100 ML IV SCH (05:26)
[2017-07-31] MEDS: LEVOTHYROXINE SODIUM 25 MCG TAB PO SCH (05:26)
[2017-07-31 06:20] LABS: AUTOMATED NEUTROPHIL # 3.2 TH/MM3 (1.8-7.7); BASOPHIL % 0.7 % (0.0-2.0); EOSINOPHIL # 0.1 TH/MM3 (0-0.4); EOSINOPHIL % 3.4 % (0.0-4.0); HEMATOCRIT 27.1 % (35.0-46.0); HEMOGLOBIN 8.2 GM/DL (11.6-15.3); LYMPH % 7.9 % (9.0-44.0); LYMPHOCYTE # 0.3 TH/MM3 (1.0-4.8); MEAN CELL VOLUME 101.7 FL (80.0-100.0); MEAN CORPUSCULAR HGB CONC 30.5 % (32.0-36.0); MEAN PLATELET VOLUME 9.5 FL (7.0-11.0); MONO % 11.6 % (0.0-8.0); MONOCYTE # 0.5 TH/MM3 (0-0.9); NEUT % 76.4 % (16.0-70.0); PLATELET COUNT 48 TH/MM3 (150-450); RED BLOOD COUNT 2.66 MIL/MM3 (4.00-5.30); RED CELL DISTRIBUTION WIDTH 19.9 % (11.6-17.2); WHITE BLOOD COUNT 4.1 TH/MM3 (4.0-11.0)
[2017-07-31 06:38] LABS: ALBUMIN 0.5 GM/DL (3.4-5.0); ALKALINE PHOSPHATASE 93 U/L (45-117); ALT (GPT) 13 U/L (10-53); AST (GOT) 15 U/L (15-37); BICARBONATE 20.9 MEQ/L (21.0-32.0); BLOOD UREA NITROGEN 55 MG/DL (7-18); CALCIUM 7.6 MG/DL (8.5-10.1); CHLORIDE 113 MEQ/L (98-107); CREATININE 1.63 MG/DL (0.50-1.00); GLOMERULAR FILTRATION RATE 31 ML/MIN (>89); GLUCOSE,RANDOM 136 MG/DL (74-106); SODIUM (NA) 140 MEQ/L (136-145); TOTAL BILIRUBIN ADULT 0.5 MG/DL (0.2-1.0); TOTAL PROTEIN 2.8 GM/DL (6.4-8.2)
[2017-07-31] MEDS: AMIODARONE 200 MG TAB PO SCH ×2 (07:58→21:46)
[2017-07-31] MEDS: levETIRAcetam 500 MG/5 ML UDC NG SCH ×2 (07:58→21:46)
[2017-07-31] MEDS: ASCORBIC ACID 500 MG TAB PO SCH ×2 (07:58→21:46)
[2017-07-31] MEDS: FAMOTIDINE 20 MG/2 ML VIAL IV PUSH SCH ×2 (07:58→21:45)
[2017-07-31] MEDS: ALPRAZolam 0.5 MG TAB PO PRN (07:58)
[2017-07-31] MEDS: GABAPENTIN 300 MG CAP PO SCH (07:59)
[2017-07-31] MEDS: HYDROmorphone HCL PF 2 MG/ML VIAL IV PUSH PRN ×3 (07:59→21:46)
[2017-07-31] MEDS: busPIRone HCL 10 MG TAB PO SCH ×2 (07:59→21:46)
[2017-07-31] MEDS: FOLIC ACID 1 MG TAB PO SCH (07:59)
[2017-07-31] MEDS: DOCUSATE SODIUM 50 MG/SENNA 8.6 MG TAB PO SCH ×2 (08:00→21:00)
[2017-07-31] MEDS: FERROUS SULFATE 300 MG /5ML UDC PO SCH ×2 (08:00→21:45)
[2017-07-31] MEDS: MULTIVITAMIN TAB PO SCH (08:00)
[2017-07-31] MEDS: LACTULOSE SYRUP 20 GM/30 ML CUP PO SCH ×2 (08:00→13:00)
[2017-07-31] MEDS: SODIUM CHLORIDE 0.9% FLUSH 10 ML FLUSH IV FLUSH PRN (08:01)
[2017-07-31] MEDS: SODIUM CHLORIDE 0.9% FLUSH 10 ML FLUSH IV FLUSH SCH ×2 (08:01→21:47)
[2017-07-31] MEDS: ARTIFICIAL TEARS OPTH SOLN 15 ML BTL EACH EYE SCH ×2 (08:01→13:00)
[2017-07-31] MEDS: COLLAGENASE OINT 30 GM TUBE TOPICAL SCH (08:01)
[2017-07-31] MEDS: ZINC SULFATE 220 MG CAP PO SCH (09:00)
--- NOTE | 2017-07-31 09:35 | HHI.IDPN ---
Subjective Subjective Remarks Patient is a 77-year-old female, brought into the hospital for further evaluation of worsening lethargy over the last 2 days. She also was found to be hypoglycemic there was apparently a [facility]-ray done in the [facility] and it showed some pneumonia. Patient has been in and out of the hospital mostly at 4 to the [facility]. Looks like the last time she was tear was in June. Patient ended up getting intubated in the emergency room, and she was put on antibiotics for pneumonia, and was also found to have a urinary tract infection. A Eid was placed when she presented to the hospital. Patient was extubated about 2 days ago, and yesterday she deteriorated and ended up getting reintubated. She is afebrile. Her WBC had gone down to 3.5. She is currently awake, and breathing more comfortably. She doesn't have a lot of secretions from her endotracheal tube. Her hemodynamics are good. Infectious disease consultation has been requested to evaluate the patient with pneumonia. Notes reviewed Temps ok Vent dependent S/P trach 07/25 BP ok Not candidate for LTAC Antibiotics cefepime Lines PIV Past Medical History Diabetes mellitus Hypertension Arrhythmia Hypothyroidism Seizure disorder Anxiety Depression Previous UTI Arthritis Past Surgical History Abdominal surgery in April, for free air, and he had cholecystectomy and appendectomy, but no real source of free air was found Previous tracheostomy and PEG placement, removed Abdominal wound, post surgery back in April, very slow to heal Back surgery Allergies: Coded Allergies: FRANCK Inhibitors (Verified Allergy, Unknown, 07/11/17) Fvmaxbm-Lrf-Dsq Reductase Inhibitor (Verified Allergy, Unknown, 07/11/17) Objective . Vital Signs Date Time Temp Pulse Resp B/P (MAP) Pulse Ox O2 Delivery O2 Flow Rate FiO2 07/31/17 06:00 79 07/31/17 04:36 100 35 07/31/17 04:00 98.5 80 16 146/65 (92) 100 07/31/17 04:00 35 07/31/17 04:00 80 07/31/17 02:00 80 07/31/17 01:24 100 35 07/31/17 00:00 98.4 80 18 137/94 (108) 100 07/31/17 00:00 35 07/31/17 00:00 80 07/30/17 22:03 100 35 07/30/17 22:00 79 07/30/17 20:00 65 12/25/17 20:00 35 07/30/17 20:00 97.9 65 18 114/57 (76) 93 07/30/17 19:35 100 35 07/30/17 18:00 69 07/30/17 16:00 98.4 66 17 118/57 (77) 100 07/30/17 16:00 66 07/30/17 16:00 35 07/30/17 15:35 100 35 07/30/17 14:00 100 07/30/17 12:00 35 07/30/17 12:00 98.1 68 22 111/59 (76) 100 07/30/17 12:00 100 07/30/17 11:43 99 35 07/30/17 10:45 96 20 100 07/30/17 10:00 82 . Laboratory Tests Test 07/30/17 05:00 07/31/17 04:37 White Blood Count 4.5 TH/MM3 4.1 TH/MM3 Red Blood Count 2.16 MIL/MM3 2.66 MIL/MM3 Hemoglobin 6.8 GM/DL 8.2 GM/DL Hematocrit 20.7 % 27.1 % Mean Corpuscular Volume 95.7 FL 101.7 FL Mean Corpuscular Hemoglobin 31.5 PG 31.0 PG Mean Corpuscular Hemoglobin Concent 33.0 % 30.5 % Red Cell Distribution Width 18.8 % 19.9 % Platelet Count 122 TH/MM3 48 TH/MM3 Mean Platelet Volume 9.2 FL 9.5 FL Neutrophils (%) (Auto) 73.8 % 76.4 % Lymphocytes (%) (Auto) 11.4 % 7.9 % Monocytes (%) (Auto) 11.3 % 11.6 % Eosinophils (%) (Auto) 3.0 % 3.4 % Basophils (%) (Auto) 0.5 % 0.7 % Neutrophils # (Auto) 3.4 TH/MM3 3.2 TH/MM3 Lymphocytes # (Auto) 0.5 TH/MM3 0.3 TH/MM3 Monocytes # (Auto) 0.5 TH/MM3 0.5 TH/MM3 Eosinophils # (Auto) 0.1 TH/MM3 0.1 TH/MM3 Basophils # (Auto) 0.0 TH/MM3 0.0 TH/MM3 CBC Comment DIFF FINAL AUTO DIFF Differential Comment AUTO DIFF CONFIRMED Platelet Estimate LOW Platelet Morphology Comment NORMAL Hematology Comments Laboratory Tests Test 07/30/17 05:00 07/31/17 04:37 Blood Urea Nitrogen 48 MG/DL 55 MG/DL Creatinine 1.64 MG/DL 1.63 MG/DL Random Glucose 137 MG/DL 136 MG/DL Calcium Level 8.6 MG/DL 7.6 MG/DL Phosphorus Level 2.2 MG/DL Magnesium Level 2.5 MG/DL Sodium Level 140 MEQ/L 140 MEQ/L Potassium Level 4.4 MEQ/L 5.3 MEQ/L Chloride Level 109 MEQ/L 113 MEQ/L Carbon Dioxide Level 23.4 MEQ/L 20.9 MEQ/L Anion Gap 8 MEQ/L 6 MEQ/L Estimat Glomerular Filtration Rate 31 ML/MIN 31 ML/MIN Total Protein 2.8 GM/DL Albumin 0.5 GM/DL Alkaline Phosphatase 93 U/L Aspartate Amino Transf (AST/SGOT) 15 U/L Alanine Aminotransferase (ALT/SGPT) 13 U/L Total Bilirubin 0.5 MG/DL Imaging Chest X-Ray 07/30/17 0000 Signed Impressions: Service Date/Time: Sunday, July 30, 2017 02:49 - CONCLUSION: Probable mild CHF. Aldair Ziegler MD Abdomen X-Ray 07/25/17 0000 Signed Impressions: Service Date/Time: Tuesday, July 25, 2017 17:34 - CONCLUSION: Dobbhoff catheter tip in the distal stomach. Jasen Delvalle MD Abdomen/Pelvis CT 07/24/17 0000 Signed Impressions: Service Date/Time: Monday, July 24, 2017 14:57 - CONCLUSION: Pleural effusion and atelectasis right greater than left. Bowel gas pattern is unremarkable. No evidence of an abscess. Some induration anterior abdominal wall with some possible early fluid collection inferiorly within the lower pannus. Jame Preciado MD Chest X-Ray 07/21/17 0600 Signed Impressions: Service Date/Time: Friday, July 21, 2017 03:13 - CONCLUSION: Nasogastric tube now in place with the tip below the [id number] of the radiograph. No significant interval change in bilateral pulmonary opacity. Differential diagnosis includes pulmonary edema and infection. Angelito Lovett MD Head CT 07/11/17 1827 Signed Impressions: Service Date/Time: Tuesday, July 11, 2017 21:23 - CONCLUSION: No acute intracranial abnormality Jaden Clark MD Physical Exam GENERAL: Sedated on the vent, has trach, NAD SKIN: Cool and dry. Edematous, has purpuric lesions in both UE HEAD: Atraumatic. Normocephalic. No temporal wasting, or tenderness. EYES: [place] conjunctiva. No petechia or hemorrhage. Pupils equal, round and reactive to light. Extraocular movements full and intact. No scleral icterus. No injection or drainage. EARS, NOSE AND THROAT: Nose without bleeding or purulent nasal discharge. Moist mucosa NECK: Trach site ok, with light yellow drainage CARDIOVASCULAR: Regular rate and rhythm. Soft heart sounds. No murmurs, rubs or gallops heard RESPIRATORY: scattered rhonchi bilaterally. ABDOMEN: Soft, obese, non-tender, nondistended. Bowel sounds present and normoactive. No guarding. No rebound. No organomegaly.Dressing on abdominal wound, intact. EXTREMITIES: No clubbing, cyanosi. Mild pedal edema. No calf tenderness. Well perfused and warm. NEUROLOGICAL: Sedated PSYCHIATRIC: unable to assess LINE: No evidence of infection Assessment & Plan Remarks IMPRESSION Recurrent respiratory failure, possibly with new VAP - C/S Enterobacter UTI, first UC with Kleb ESBL and Citrobacter - now with C albicans Neutropenia, ?due to new infection, ?meds - better Obesity RECOMMENDATION Continue IV cefepime to cover Enterobacter - to complete Rx today Monitor off Abx Monitor progress Weaning per CCM Clinically stable from ID standpoint I will be available prn Please reconsult if with any new ID issue or question Xochilt Woods MD Jul 31, 2017 09:35
--- NOTE | 2017-07-31 11:22 | HHI.CCPN ---
Subjective Remarks/Hospital Course 07/11: 77-year-old morbidly obese female patient [facility] in [facility], due to increased lethargy for the last 2 days, hypoglycemia early in the day with sugars of 44, given glucagon, chest x-ray showing a pneumonia according to facility staff, EMS noted the patient was fairly disoriented, GCS 6, and started bag valve masking her because of respiratory distress and hypoxia with sats in the 87% range despite oxygenation. Patient was brought in bag-valve- mask in progress and was immediately intubated in the emergency department by ED attending. 07/12: Sedated, orally intubated on mechanical ventilation. 07/13 Patient is sedated with Fentanyl and intubated. Afebrile. 07/14 No events overnight, Sedated with Fentanyl and Versed. Afebrile. Failed CPAP trials yesterday. 07/15 No events overnight. Sedated and intubated. ABG on CPAP yesterday showed resp acidosis with PH 7.22 and CO2: 58 07/16 Patient remains sedated and intubated 07/17. No events overnight. Remains sedated and intubated 07/18 Patient remains intubated off sedation. Afebrile. 07/19 Patient s/p extubation yesterday on BIPAP overnight. Awake. ABG last night showed resp acidosis with PH: 7.24, pCO2: 66 07/20 Patient was reintubated yesterday for resp failure. Sedated and intubated. Afebrile. 07/21: new HCAP with GNRs in sputum. persistent respiratory failure. likely will require long-term ventilation and slow wean. will consult general surgery for re-do trach and gastric access. 07/22: no changes. no improvements. gen surgery planning PEG/Trach next week. 07/23: sputum growing enterobacter; now on Cefepime per ID. neuro exam still stable, but fails weaning trials quickly. 07/24: no changes. still failing cpap and weaning trials. CT abd/pelvis done at gen surg request without overt abscess at prior peg site. 07/25: s/p trach today. doing well. still failing cpap. approved for LTAC. surgical contra-indication to PEG placement with induration at old PEG site: will use DHT for enteral access and tube feeds. ID giving final recs for duration of therapy. stable for discharge to LTAC when bed available. 07/26 No events overnight. Patient was rejected by [facility] this morning per case maker. Afebrile. 07/27 Patient is sedated with Diprivan and intubated. Afebrile. 07/28 No events overnight. Off sedation. On ventilator via trach. 07/29 No events overnight. Tolerated CPAP for most f day yesterday. Afebrile. 07/30: Remains on mechanical ventilation via tracheostomy. Drowsy/ encephalopathic 07/31: Remains encephalopathic, on mechanical ventilation via tracheostomy. Received 1 unit PRBCs yesterday. No melena or rectal bleeding noted. Objective Vital Signs Date Time Temp Pulse Resp B/P (MAP) Pulse Ox O2 Delivery O2 Flow Rate FiO2 07/31/17 09:30 100 35 07/31/17 06:00 79 07/31/17 04:00 98.5 16 146/65 (92) 07/29/17 22:58 Ventilator Intake and Output 07/31/17 07/31/17 08/01/17 08:00 16:00 00:00 Intake Total 1323 ml Output Total 500 ml Balance 823 ml Result Diagram: 07/31/17 0437 07/31/17 0437 Imaging Last Impressions Abdomen X-Ray 07/25/17 0000 Signed Impressions: Service Date/Time: Tuesday, July 25, 2017 17:34 - CONCLUSION: Dobbhoff catheter tip in the distal stomach. Jasen Delvalle MD Abdomen/Pelvis CT 07/24/17 0000 Signed Impressions: Service Date/Time: Monday, July 24, 2017 14:57 - CONCLUSION: Pleural effusion and atelectasis right greater than left. Bowel gas pattern is unremarkable. No evidence of an abscess. Some induration anterior abdominal wall with some possible early fluid collection inferiorly within the lower pannus. Jame Preciado MD Chest X-Ray 07/21/17 0600 Signed Impressions: Service Date/Time: Friday, July 21, 2017 03:13 - CONCLUSION: Nasogastric tube now in place with the tip below the [id number] of the radiograph. No significant interval change in bilateral pulmonary opacity. Differential diagnosis includes pulmonary edema and infection. Angelito Lovett MD Head CT 07/11/17 1827 Signed Impressions: Service Date/Time: Tuesday, July 11, 2017 21:23 - CONCLUSION: No acute intracranial abnormality Jaden Clark MD Objective Remarks GENERAL: Morbidly obese elderly female s/p trach SKIN: Warm and dry. HEAD: Normocephalic. EYES: No scleral icterus. No injection or drainage. NECK: trachea midline. trach in place CARDIOVASCULAR: Regular rate and rhythm. RESPIRATORY: Orally intubated on mechanical ventilation. GASTROINTESTINAL: Abdomen soft, non-tender, nondistended. left non-healing ulcer area from prior PEG site. MUSCULOSKELETAL: No cyanosis, or edema. Neuro: Encephalopathic, drowsy, not following commands, on mechanical ventilation via tracheostomy A/P Assessment and Plan Assessment: 77yF with morbid obesity and recurrent healthcare associated pneumonia and hypoxic respiratory failure. s/p trach 07/25. stable for transfer to LTAC. contra-indicated for PEG given recent peg site induration. will use DHT for long-term enteral nutrition. from an ID standpoint, would recommend 10 day course of Cefepime iv for recurrent HCAP pneumonia, and 14 day course of iv antifungals. Plan Neuro: metabolic encephalopathy Seizure disorder Neuropathy Off sedation. Monitor neuro status. On Keppra 500mg Q12 oxycodone 10mg po q4h prn for pain. Pulm: Acute hypoxic and hypercarbic Respiratory failure Recurrent healthcare associated pneumonia Reintubated 07/19 Continue with vent support keep sat >92% Bronchodilators, ICU vent bundle. SBT daily as lisa s/p trach 07[facility] [facility]. CV: History of hypertension Monitor HR and BP keep MAP>65mmHg Amiodarone 200mg BID 2d echo 07/20: normal biventricular function, EF 60%, RVSP 47 mmHg. : Acute kidney injury - improving. Free water deficit Monitor renal function, electrolytes replacement as needed. Cr: improving. NS@84ml/hr x 1 liter GI: Morbid Obesity Acute protein calorie malnutrition- moderate On tube feeds- Glucerna 1.5with goal rate 65ml/hr, On roly Colace, Lactulose for bowel regimen. On Reglan 5mg IV Q8 PRN ICU electrolyte protocol ID: Recurrent HCAP pneumonia Urinary tract infection Continue cefepime. Urine cx: 07/11: Kleb ESBL, Citrobacter. Repeat urine cx 07/18 - Kirsten Albicans sputum cx: Enterobacter ID following. Heme: Anemia secondary to chronic disease Monitor CBC, on Ferrous sulfate and Folic acid Hep PLT ab -negative 1 unit PRBCs ordered on 07/30 for hemoglobin 7.2, no evidence of melena or rectal bleeding. Endo: Hypothyroidism Hyperglycemia of Critical illness SSI medium scale for glycemic control GI prophylaxis- on Pepcid DVT prophylaxis- Heparin SQ Dispo: Awaiting placement in LTAC. Patient was rejected by [place] . 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 Level 2 Gerard Zepeda MD Jul 31, 2017 11:22
--- NOTE | 2017-07-31 13:35 | PD.CONS ---
Consult Service Palliative Care . Consult Requested By Dr. Zepeda . Primary Care Physician [facility] . Reason for Consultation a. To assist with evaluation and management of symptoms including: Debility , dyspnea b. To assist medical decision maker(s) with: better understanding of current medical conditions; weighing benefits/burdens of medical treatment options; making medical treatment decisions. . HPI History of Present Illness Ms. Henson is a 77-year-old female who resides a [facility]. She has a complex medical history that includes morbid obesity, hypothyroidism, HTN, DM, GERD, anxiety, atrial fibrillation, CHF and COPD. Ms. Henson presented to [facility] ED on 07/11/2017 via EMS for evaluation of increased lethargy x 2 days and hypoglycemia with BGL of 44 (glucagon administered). Upon EMS arrival the patient the patient was found confused with audible rales. While en route the patient became lethargic with GCS of 6 and inadequate respirations; she was ventilated with BVM and immediately intubated in the ED. On arrival to the ED, the patient was was bradycardic and hypotensive. Her WBC elevated at 15,900. A chest x-ray revealed perihilar and right basilar infiltrates. CT of the head showed no acute intracranial abnormalities. The patient was started on broad-spectrum antibiotics and IV steroids. Urine cultures were positive for Klebsiella ESBL and Citrobacter. Follow-up urine culture on 07/20/2017 growing Kirsten. Patient was extubated on 07/18/2017 on BiPAP overnight; ABG showed respiratory acidosis with PH: 7.24, pCO2: 66. Patient became tachypneic and tachycardic and was subsequently reintubated on and placed on mechanical ventilation. Follow-up chest x-ray showed new HCAP with GNRs in sputum. Of note, the patient has had multiple hospitalization since 12/2016 with admissions to [facility] and SNF for rehabilitation. She was hospitalized at [facility] in April and found to have intraperitoneal air. The patient 's reports that the patient was taken to the operating room for exploratory laparotomy and had a cholecystectomy and appendectomy. Postoperatively the patient was placed on mechanical ventilation and had difficulty weaning from the ventilator. A trach/PEG tube were placed, and the patient was transferred to [facility] for long-term acute care. At some point the trach/PEG were removed. General surgery was consulted for trach/PEG tube placement. Status post tracheostomy on 07/25/2017. PEG tube contraindicated given her recent PEG site induration-will use DHT for long-term enteral nutrition. Afebrile. Transfused with 1 unit PRBCs on 07/30/2017 for a hemoglobin of 6.8. No melena or rectal bleeding noted. Patient awaiting placement in LTAC; [facility] rejected the patient. Palliative Care was consulted to assist with symptom management and to discuss with the family the benefits and burdens of her current illnesses and the options regarding future care. . Function/Cognitive Trajectory Patient is a morbidly obese female who has had some degree of debility since the early s/p an infection in her spine requiring surgery. Prior to Dec, 2016 the patient was able to ambulate short distances with a walker. Her states she was otherwise independent for all ADLs. Patient has had multiple hospitalizations with LTAC and SNF placement since 12/2016 and has not return home since that time. Review of Systems ROS Limitations: Clinical Condition, Intubated Constitutional: COMPLAINS OF: Fatigue, Generalized weakness Respiratory: COMPLAINS OF: Shortness of breath Musculoskeletal: COMPLAINS OF: Back pain, Decreased range of motion Integumentary: COMPLAINS OF: Non-healing sores (nonhealing abdominal wound) Hematologic/Lymphatics: COMPLAINS OF: History of transfusions Neurologic: COMPLAINS OF: Abnormal gait, Seizures Past Family Social History Coded Allergies: FRANCK Inhibitors (Verified Allergy, Unknown, 07/11/17) Bcavjki-Sbu-Svy Reductase Inhibitor (Verified Allergy, Unknown, 07/11/17) Past Medical History Morbid obesity Hypothyroidism Hypertension DM GERD Anxiety Atrial fibrillation CHF COPD Seizure disorder Neuropathy . Past Surgical History Exploratory laparotomy with cholecystectomy and appendectomy-04/2017 Previous tracheostomy and PEG placement, removed Postoperative abdominal wound from 04/2017, very slow to heal Back surgery . Reported Medications Zinc Sulfate 220 Mg (50 Mg Zinc) Cap 220 Mg PO DAILY Ascorbic Acid 500 Mg Tab 500 Mg PO BID Tramadol (Tramadol HCl) 50 Mg Tab 50 Mg PO Q6H PRN Spironolactone 25 Mg Tab 12.5 Mg PO HS Santyl Topical (Collagenase) 250 Unit/Gm Oint 1 Applic TOPICAL DAILY Probiotic (Lactobacillus Acidophilus) 10 Billion Cell Cap 1 Cap PO TIDAC Prednisone 10 Mg Tab 10 Mg PO DAILY Multiple Vitamin 1 Tab 1 Tab PO DAILY Modafinil 200 Mg Tab 200 Mg PO DAILY Metoprolol Tartrate 25 Mg Tab 25 Mg PO BID Levothyroxine (Levothyroxine Sodium) 25 Mcg Tab 25 Mcg PO DAILY Levetiracetam 500 Mg Tab 500 Mg PO BID Combivent Respimat Inh (Ipratropium-Albuterol Inh) 20-100 Assisted/Act Aero 1 Puff INH QID Levemir Inj (Insulin Detemir) 1,000 unit/ 10 ML Vial 25 Units SQ BID Do not mix with any other Insulin. Humalog Inj (Insulin Human Lispro) 1,000 Unit/10 Ml Vial 3-12 Units SQ ACHS Max dose at bedtime:( )units; sugars < 70,(0)units; sugars 150-199,(2)units; sugars 200-249,(4)units; sugars 250-299,(7)units; sugars 300-349,(10)units; sugars more than 349,(12)units. Guaifenesin DM Liq (Guaifenesin-Dextromethorphan Liq) 10-100 Mg/5 Ml Liq 7.5 Ml PO Q6HR PRN Glucagon Emergency Inj Kit (Glucagon (Rdna) Inj Kit) 1 Mg Kit 1 Mg IM ONCE PRN Gabapentin 300 Mg Cap 300 Mg PO TID Furosemide 40 Mg Tab 40 Mg PO DAILY Folic Acid 0.4 Mg Tab 1 Mg PO DAILY Ferrous Sulfate 325 Mg (65 Mg Iron) Tablet 325 Mg PO DAILY Famotidine 20 Mg Tab 20 Mg PO BID Dulcolax Supp (Bisacodyl) 10 Mg Supp 10 Mg RECTAL DAILY PRN Docusate Sodium 100 Mg Cap 100 Mg PO BID PRN Citroma Liq (Magnesium Citrate) 300 Ml Liq 296 Ml PO DIRECTED Buspirone (Buspirone HCl) 10 Mg Tab 10 Mg PO BID Amitriptyline (Amitriptyline HCl) 10 Mg Tab 10 Mg PO HS Amiodarone (Amiodarone HCl) 200 Mg Tab 200 Mg PO BID Alprazolam 0.5 Mg Tab 0.5 Mg PO Q6H PRN Tylenol (Acetaminophen) 325 Mg Tab 650 Mg PO Q4H PRN Tylenol (Acetaminophen) 325 Mg Tab 650 Mg PO Q4H PRN . Current Medications Medications (Trade) Dose Ordered Sig/Kerri Route Start Time Stop Time Status Last Admin (NS Flush) 2 ml UNSCH PRN IV FLUSH 12/6/17 19:15 07/31/17 08:01 (NS Flush) 2 ml BID IV FLUSH 07/11/17 21:00 07/31/17 08:01 (Tylenol) 650 mg Q6H PRN PO 07/11/17 19:15 (Tears Naturale Opth Soln) 1 drop TID EACH EYE 07/12/17 09:00 07/31/17 08:01 (Zofran Inj) 4 mg Q6H PRN IV PUSH 07/11/17 19:15 (Heparin Inj) 5,000 units Q8H SQ 07/11/17 21:00 Future Hold 07/24/17 13:06 Miscellaneous Information 1 Q361D XX 07/11/17 19:15 07/11/17 19:15 (Chlorhexidine 2% Cloth) 3 pack Taper DAILY@04 TOP 07/12/17 04:00 07/08/18 03:59 07/31/17 04:00 (Chlorhexidine 2% Cloth) 3 pack UNSCH PRN TOP 07/11/17 19:15 (Mare-Colace) 1 tab BID PO 07/11/17 21:00 07/30/17 21:35 (Milk Of Magnesia Liq) 30 ml Q12H PRN PO 07/11/17 19:15 (Senokot) 17.2 mg Q12H PRN PO 07/11/17 19:15 (Dulcolax Supp) 10 mg DAILY PRN RECTAL 07/11/17 19:15 (Xanax) 0.5 mg Q6H PRN PO 07/11/17 20:15 07/31/17 07:58 (Cordarone) 200 mg BID PO 07/11/17 21:00 07/31/17 07:58 (Elavil) 10 mg HS PO 07/11/17 21:00 07/30/17 21:35 (Vitamin C) 500 mg BID PO 07/11/17 21:00 07/31/17 07:58 (Buspar) 10 mg BID PO 07/11/17 21:00 07/31/17 07:59 (Santyl Oint) 1 applic DAILY TOPICAL 07/12/17 09:00 07/31/17 08:01 (Folate) 1 mg DAILY PO 07/12/17 09:00 07/31/17 07:59 (Synthroid) 25 mcg DAILY@0600 PO 07/12/17 06:00 07/31/17 05:26 (Zinc Sulfate) 220 mg DAILY PO 07/12/17 09:00 07/30/17 08:24 (Theragran) 1 tab DAILY PO 07/12/17 09:00 07/31/17 08:00 (Keppra Liq) 500 mg Q12HR NG 07/12/17 13:00 07/31/17 07:58 (Ferrous Sulfate Liq) 300 mg BID PO 07/12/17 13:00 07/31/17 08:00 (Neurontin) 600 mg DAILY PO 07/13/17 09:00 07/31/17 07:59 (Pepcid Inj) 10 mg Q12HR IV PUSH 07/12/17 21:00 07/31/17 07:58 (Lactulose Liq) 30 ml TID PO 07/14/17 13:00 07/30/17 13:52 (Apresoline Inj) 10 mg Q6H PRN IV PUSH 07/18/17 09:00 07/28/17 00:26 (Duoneb Neb) 1 ampule Q2HR NEB PRN NEB 07/18/17 14:45 07/19/17 00:33 (D50w (Vial) Inj) 50 ml UNSCH PRN IV PUSH 07/19/17 08:30 (Glucagon Inj) 1 mg UNSCH PRN OTHER 07/19/17 08:30 (NovoLIN R SUPPLEMENTAL SCALE) 1 Q6H SQ 07/19/17 10:00 07/31/17 04:00 (Mag-Ox) 800 mg UNSCH PRN PO 07/21/17 14:45 Magnesium Sulfate 4 gm/Sodium Chloride 100 ml @ 50 mls/hr UNSCH PRN IV 07/21/17 14:45 Magnesium Sulfate 2 gm/Sodium Chloride 100 ml @ 50 mls/hr UNSCH PRN IV 07/21/17 14:45 Potassium Chloride 100 ml @ 50 mls/hr Q2H PRN IV 07/21/17 14:45 07/23/17 12:24 Potassium Chloride 100 ml @ 50 mls/hr Q2H PRN IV 07/21/17 14:45 Potassium Chloride 100 ml @ 50 mls/hr Q2H PRN IV 07/21/17 14:45 Potassium Chloride 100 ml @ 25 mls/hr UNSCH PRN IV 07/21/17 14:45 (K-Phos) 2,000 mg Q4H PRN PO 07/21/17 14:45 (K-Phos) 2,000 mg UNSCH PRN PO/TUBE 07/21/17 14:45 Potassium Phosphate 30 mmol/ Sodium Chloride 260 ml @ 42 mls/hr UNSCH PRN IV 07/21/17 14:45 Sodium Phosphate 30 mmol/Sodium Chloride 250 ml @ 42 mls/hr UNSCH PRN IV 07/21/17 14:45 (Roxicodone Intensol Liq) 10 mg Q4H PRN PO 07/23/17 10:00 07/27/17 13:27 (Dilaudid Pf Inj) 0.5 mg Q4H PRN IV PUSH 07/25/17 17:00 07/31/17 07:59 (Reglan Inj) 5 mg Q8H PRN IV PUSH 07/27/17 08:45 . Family History Patient's brother has diabetes and heart disease. . Substance Use Tobacco: None known Alcohol: None known Prescription med abuse: None known Illicits: None known . Psychosocial History Patient is originally from [place]. She moved to [place] where she met her . Patient has been 2 times. She had 2 children with her first . Her daughter (Manuela) and son (Landon) lives in [place]. Patient has been to her current for approximately 37 years. She worked with Medicare processing claims. . Spiritual/Cultural Factors Spiritism kristy per spouse . Documented care wishes: No known document wishes have been completed. . Today's verbally stated goals: Patient is unable to participate in establishing medical treatment goals due to her current clinical condition. . Family/friends goals: Goals remain aggressive at this time. Patient's stated today 2016 that he did not know if he was doing the right thing and maybe his had been through too much. . Ethical and Legal Issues Per [place] statutes, in the absence of written advanced directives healthcare proxy decision-making falls to this patient's . . Physical Exam Vital Signs Date Time Temp Pulse Resp B/P (MAP) Pulse Ox O2 Delivery O2 Flow Rate FiO2 07/31/17 09:30 100 35 07/31/17 06:00 79 12/26/17 04:36 100 35 07/31/17 04:00 98.5 80 16 146/65 (92) 100 07/31/17 04:00 35 07/31/17 04:00 80 07/31/17 02:00 80 07/31/17 01:24 100 35 07/31/17 00:00 98.4 80 18 137/94 (108) 100 07/31/17 00:00 35 07/31/17 00:00 80 07/30/17 22:03 100 35 07/30/17 22:00 79 07/30/17 20:00 65 07/30/17 20:00 35 07/30/17 20:00 97.9 65 18 114/57 (76) 93 07/30/17 19:35 100 35 07/30/17 18:00 69 07/30/17 16:00 98.4 66 17 118/57 (77) 100 07/30/17 16:00 66 07/30/17 16:00 35 07/30/17 15:35 100 35 07/30/17 14:00 100 . Exam CONSTITUTIONAL/GENERAL: This is a morbidly obese, female patient status post tracheostomy on mechanical ventilation. TUBES/LINES/DRAINS: Tracheostomy, Dobbhoff, Female external catheter, PIV SKIN: Generalized pallor. Nonhealing wound from PEG tube on site services specialist: Atraumatic. Normocephalic. EYES: No scleral icterus. No injection or drainage. Fundi not examined. ENT: Nose without bleeding or purulent drainage. Throat without visible erythema , exudates, masses, or lesions. NECK: Trachea midline. Tracheostomy in place CARDIOVASCULAR: Regular rate and rhythm without murmurs, gallops, or rubs. RESPIRATORY/CHEST: Tracheostomy to mechanical ventilation. GASTROINTESTINAL: Protuberant abdomen with nonhealing wound from PEG tube site. GENITOURINARY: Without palpable bladder distension. MUSCULOSKELETAL: Extremities without clubbing, cyanosis, or edema. LYMPHATICS: No palpable cervical or supraclavicular adenopathy. NEUROLOGICAL: Encephalopathic. Does not respond to verbal stimuli or follow commands. PSYCHIATRIC: Unable to assess due to patient's clinical condition . Diagnostic Tests Laboratory Laboratory Tests Test 07/28/17 19:56 07/29/17 06:28 07/30/17 05:00 07/31/17 04:37 Hemoglobin 7.9 GM/DL (11.6-15.3) 7.5 GM/DL (11.6-15.3) 6.8 GM/DL (11.6-15.3) 8.2 GM/DL (11.6-15.3) Hematocrit 23.8 % (35.0-46.0) 22.5 % (35.0-46.0) 20.7 % (35.0-46.0) 27.1 % (35.0-46.0) White Blood Count 4.9 TH/MM3 (4.0-11.0) 4.5 TH/MM3 (4.0-11.0) 4.1 TH/MM3 (4.0-11.0) Red Blood Count 2.35 MIL/MM3 (4.00-5.30) 2.16 MIL/MM3 (4.00-5.30) 2.66 MIL/MM3 (4.00-5.30) Mean Corpuscular Volume 95.6 FL (80.0-100.0) 95.7 FL (80.0-100.0) 101.7 FL (80.0-100.0) Mean Corpuscular Hemoglobin 31.9 PG (27.0-34.0) 31.5 PG (27.0-34.0) 31.0 PG (27.0-34.0) Mean Corpuscular Hemoglobin Concent 33.4 % (32.0-36.0) 33.0 % (32.0-36.0) 30.5 % (32.0-36.0) Red Cell Distribution Width 18.9 % (11.6-17.2) 18.8 % (11.6-17.2) 19.9 % (11.6-17.2) Platelet Count 151 TH/MM3 (150-450) 122 TH/MM3 (150-450) 48 TH/MM3 (150-450) Mean Platelet Volume 9.3 FL (7.0-11.0) 9.2 FL (7.0-11.0) 9.5 FL (7.0-11.0) Neutrophils (%) (Auto) 81.0 % (16.0-70.0) 73.8 % (16.0-70.0) 76.4 % (16.0-70.0) Lymphocytes (%) (Auto) 7.2 % (9.0-44.0) 11.4 % (9.0-44.0) 7.9 % (9.0-44.0) Monocytes (%) (Auto) 8.9 % (0.0-8.0) 11.3 % (0.0-8.0) 11.6 % (0.0-8.0) Eosinophils (%) (Auto) 2.3 % (0.0-4.0) 3.0 % (0.0-4.0) 3.4 % (0.0-4.0) Basophils (%) (Auto) 0.6 % (0.0-2.0) 0.5 % (0.0-2.0) 0.7 % (0.0-2.0) Neutrophils # (Auto) 4.0 TH/MM3 (1.8-7.7) 3.4 TH/MM3 (1.8-7.7) 3.2 TH/MM3 (1.8-7.7) Lymphocytes # (Auto) 0.4 TH/MM3 (1.0-4.8) 0.5 TH/MM3 (1.0-4.8) 0.3 TH/MM3 (1.0-4.8) Monocytes # (Auto) 0.4 TH/MM3 (0-0.9) 0.5 TH/MM3 (0-0.9) 0.5 TH/MM3 (0-0.9) Eosinophils # (Auto) 0.1 TH/MM3 (0-0.4) 0.1 TH/MM3 (0-0.4) 0.1 TH/MM3 (0-0.4) Basophils # (Auto) 0.0 TH/MM3 (0-0.2) 0.0 TH/MM3 (0-0.2) 0.0 TH/MM3 (0-0.2) CBC Comment DIFF FINAL DIFF FINAL AUTO DIFF Differential Comment AUTO DIFF CONFIRMED Blood Urea Nitrogen 45 MG/DL (7-18) 48 MG/DL (7-18) 55 MG/DL (7-18) Creatinine 1.58 MG/DL (0.50-1.00) 1.64 MG/DL (0.50-1.00) 1.63 MG/DL (0.50-1.00) Random Glucose 163 MG/DL (74-106) 137 MG/DL (74-106) 136 MG/DL (74-106) Calcium Level 8.9 MG/DL (8.5-10.1) 8.6 MG/DL (8.5-10.1) 7.6 MG/DL (8.5-10.1) Sodium Level 139 MEQ/L (136-145) 140 MEQ/L (136-145) 140 MEQ/L (136-145) Potassium Level 4.2 MEQ/L (3.5-5.1) 4.4 MEQ/L (3.5-5.1) 5.3 MEQ/L (3.5-5.1) Chloride Level 108 MEQ/L (98-107) 109 MEQ/L (98-107) 113 MEQ/L (98-107) Carbon Dioxide Level 23.5 MEQ/L (21.0-32.0) 23.4 MEQ/L (21.0-32.0) 20.9 MEQ/L (21.0-32.0) Anion Gap 8 MEQ/L (5-15) 8 MEQ/L (5-15) 6 MEQ/L (5-15) Estimat Glomerular Filtration Rate 32 ML/MIN (>89) 31 ML/MIN (>89) 31 ML/MIN (>89) Phosphorus Level 2.2 MG/DL (2.5-4.9) Magnesium Level 2.5 MG/DL (1.5-2.5) Platelet Estimate LOW (NORMAL) Platelet Morphology Comment NORMAL (NORMAL) Hematology Comments Total Protein 2.8 GM/DL (6.4-8.2) Albumin 0.5 GM/DL (3.4-5.0) Alkaline Phosphatase 93 U/L (45-117) Aspartate Amino Transf (AST/SGOT) 15 U/L (15-37) Alanine Aminotransferase (ALT/SGPT) 13 U/L (10-53) Total Bilirubin 0.5 MG/DL (0.2-1.0) . Result Diagram: 07/31/17 0437 07/31/17 0437 Imaging Last 72 hours Impressions Chest X-Ray 07/30/17 0000 Signed Impressions: Service Date/Time: Sunday, July 30, 2017 02:49 - CONCLUSION: Probable mild CHF. Aldair Ziegler MD . Procedures 07/11/2017: Intubation 07/11/2017: OGT placement 07/18/2017: Extubation 07/19/2017: Reintubation 07/25/2017: Tracheostomy . Patient/Family Conference Present at Family Conference: Spoke with patient's , Reji, at bedside and in the family conference room. . Family Conference Location: Bedside, Consult Room Issues Discussed: * Palliative care role, purpose, approach * Additional medical, psychosocial, and spiritual history * Patients general health, functional status, and cognitive changes in the months leading up to the current hospitalization * Patient/family understanding of the current medical problems * Patient/family understanding of prognosis * Patients goals of care as best understood from advance directives and/or conversations and/or values * Current medical treatment options and benefits/burdens of those options * Likely scenarios comparing ongoing aggressive care with a transition to comfort measures only * Questions answered to the best of my ability * Palliative care contact information provided . Assessment and Plan Disease Oriented Problem List: (1) Metabolic encephalopathy (2) Seizure disorder (3) Neuropathy (4) Acute respiratory failure with hypoxia and hypercarbia (5) HCAP (healthcare-associated pneumonia) (6) Hypertension (7) Acute kidney insufficiency (8) Protein calorie malnutrition (9) UTI (urinary tract infection) (10) Hypothyroidism (11) Respiratory distress (12) Pneumonia Symptom Scale: (1) Debility 0-10 Scale: Unable to quantify (2) Dyspnea 0-10 Scale: Unable to quantify Pertinent Non-Medical Issues Psychosocial: Patient is originally from [place]. She moved to [place] where she met her . Patient has been 2 times. She had 2 children with her first . Her daughter (Manuela) and son (Landon) lives in [place]. Patient has been to her current for approximately 37 years. She worked with Medicare processing claims. Spiritual: Non-practicing Spiritism per spouse Legal: Per [place] statutes, in the absence of written advanced directives healthcare proxy decision-making falls to the patient's . Ethical issues impacting care: No known ethical issues impacting care at this time. . Important Contacts Reji Henson, : [phone] Manuela Kelly: [phone] . Prognosis Patient is a morbidly obese female with recurrent healthcare associated pneumonia, hypoxic respiratory failure and non-healing wounds status post tracheostomy placement. She has had multiple hospitalizations with subsequent LTAC/SNF placement since Dec, 2016. Awaiting placement at LTAC; long-term prognosis is poor. . Code Status: Full Code Plan * FULL CODE * Decision-making: Patient is currently unable to participate in establishment of medical treatment goals given her clinical condition. It is unknown if she will regain capacity. Per [place] statutes, in the absence of written advanced directives healthcare proxy decision-making falls to her (Reji Henson) . * GOALS REMAIN AGGRESSIVE AT THIS TIME. * Discussed with bedside nurse, Lea * Palliative care met with the patient's , Reji, to discuss this patient's recent decline and comp located hospitalization course. Patient's stated that he did not know if he was doing the right thing and maybe his had been through too much. We had a lengthy conversation regarding the patient's overall prognosis and discussed comfort focused goals versus aggressive interventions. The process of cardiopulmonary resuscitation was reviewed. Reji would like to discuss these decisions further with the patient' s daughter, Manuela. * Symptom management-dyspnea: Patient with recurrent HCAP and hypoxic respiratory failure. Patient will likely require long-term ventilation and will be difficult to wean. Status post tracheostomy on 07/25/2017. 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 Prior to Dec, 2016 the patient was able to ambulate short distances with a walker. Her states she was otherwise independent for all ADLs. Patient has had multiple hospitalizations with LTAC and SNF placement since 12/2016 and has not return home since that time. * Palliative care will continue to follow this patient throughout her hospitalization to establish trust, assist with symptom management and clarification of medical treatment goals. . Thank you for the opportunity to participate in the care of Ms. Henson. . Attestation To help prompt me to consider important information that might be impacting today's encounter and assessment, information from prior notes written by myself or my colleagues may have been "brought forward" into today's note. My signature on this note, however, is an attestation that I personally performed the exam, history, and/or decision-making noted today, and, unless otherwise indicated, the interactions with patient, family, and staff as well as the review of records all occurred today. I also attest that the listed assessment and stated plan reflect my best clinical judgment today based on the combination of historical information, prior notes, and today's exam/ interactions. When time spent is documented, it refers only to time spent today by the signer, or if indicated, combined time spent today by collaborating physician/nurse practitioner. . Zo Newell Jul 31, 2017 13:35
[2017-07-31] MEDS: AMITRIPTYLINE HCL 10 MG TAB PO SCH (21:46)
[2017-08-01] VITALS (19 sets, daily range): BP systolic 97–131; BP diastolic 46–77; PULSE 59–98; RESP 17–25; TEMP 97.9–99.3; O2SAT 99–100
[2017-08-01] MEDS: CHLORHEXIDINE GLUCONATE 2 % 1 PACK (2 CLOTHS) TOP SCH (04:00)
[2017-08-01] MEDS: INSULIN NovoLIN REGULAR SUPPLEMENTAL SCALE SQ SCH ×4 (04:00→20:39)
[2017-08-01] MEDS: LEVOTHYROXINE SODIUM 25 MCG TAB PO SCH (05:46)
[2017-08-01] MEDS: DOCUSATE SODIUM 50 MG/SENNA 8.6 MG TAB PO SCH ×2 (09:00→20:38)
[2017-08-01] MEDS: LACTULOSE SYRUP 20 GM/30 ML CUP PO SCH ×3 (09:00→17:56)
[2017-08-01] MEDS: FERROUS SULFATE 300 MG /5ML UDC PO SCH ×2 (11:05→20:38)
[2017-08-01] MEDS: levETIRAcetam 500 MG/5 ML UDC NG SCH ×2 (11:06→20:38)
[2017-08-01] MEDS: FAMOTIDINE 20 MG/2 ML VIAL IV PUSH SCH ×2 (11:06→20:39)
[2017-08-01] MEDS: ZINC SULFATE 220 MG CAP PO SCH (11:06)
[2017-08-01] MEDS: MULTIVITAMIN TAB PO SCH (11:07)
[2017-08-01] MEDS: GABAPENTIN 300 MG CAP PO SCH (11:08)
[2017-08-01] MEDS: ASCORBIC ACID 500 MG TAB PO SCH ×2 (11:08→20:38)
[2017-08-01] MEDS: AMIODARONE 200 MG TAB PO SCH ×2 (11:08→20:38)
[2017-08-01] MEDS: SODIUM CHLORIDE 0.9% FLUSH 10 ML FLUSH IV FLUSH SCH ×2 (11:09→20:39)
[2017-08-01] MEDS: busPIRone HCL 10 MG TAB PO SCH ×2 (11:09→20:38)
[2017-08-01] MEDS: ARTIFICIAL TEARS OPTH SOLN 15 ML BTL EACH EYE SCH ×3 (11:09→17:56)
[2017-08-01] MEDS: FOLIC ACID 1 MG TAB PO SCH (11:09)
[2017-08-01] MEDS: COLLAGENASE OINT 30 GM TUBE TOPICAL SCH (11:10)
--- NOTE | 2017-08-01 14:34 | HHI.HCPN ---
Reason for visit a. To assist with evaluation and management of symptoms including: Debility , dyspnea b. To assist medical decision maker(s) with: better understanding of current medical conditions; weighing benefits/burdens of medical treatment options; making medical treatment decisions. . Subjective/Interval History Follow up visit for symptom management and clarification of medical treatment goals. Mrs. Henson is a 76-year-old female with morbid obesity, recurrent HCAP and hypoxic respiratory failure. Follow-up chest x-ray on 07/30/2017 with probable mild CHF. Attempting CPAP trials this morning status post tracheostomy on 07/25/2017. Oxygen saturation 100% on 35% FiO2, PEEP 5. Afebrile. Hemodynamically stable. CBC on 07/31/2017 showing WBC 4.1, hemoglobin 8.2, hematocrit 27.1, platelets 48, neutrophils 76.4% Unable to place PEG tube; patient tolerating artificial nutrition via Dobbhoff. Glucerna 1.5 with goal rate of 65 mL per hour per M.D. Total protein: 2.8, albumin 0.5. Physical therapy and occupational therapy following. Patient remains dependent for all mobility, ongoing passive ROM exercises. Patient unable to participate secondary to lethargy. Patient will need placement at LTAC if goals remain aggressive. [facility] has declined the patient because she has only 20 days of Medicare left and no secondary insurance. Case management continues to assist with discharge planning. . Family/friend interactions Spoke to patient's daughter, Manuela, via telephone. Patient's clinical condition was reviewed, questions answered to the best of my ability. Manuela has been trying to make arrangements for her mother to return to [place] where she has friends and family, however the patient has not been stable enough for this. Manuela verbalizes understanding that her mother remains critically ill and her long-term prognosis appears poor. Hospice was introduced. Manuela does not feel that the patient/family is ready for hospice at this time but is considering CODE STATUS and will discuss this further with her father. At this time the patient remains in FULL CODE. . Advance Directives Advance Directive Specifics Documented care wishes: No known document wishes have been completed. . Objective Vital Signs Date Time Temp Pulse Resp B/P (MAP) Pulse Ox O2 Delivery O2 Flow Rate FiO2 08/01/17 12:09 100 35 08/01/17 08:08 35 08/01/17 08:08 100 35 08/01/17 06:00 82 08/01/17 04:45 100 35 08/01/17 04:00 35 08/01/17 04:00 98.0 66 18 129/58 (81) 100 08/01/17 04:00 66 08/01/17 02:00 81 08/01/17 01:38 99 35 08/01/17 00:00 35 08/01/17 00:00 97.9 59 18 107/52 (70) 100 08/01/17 00:00 59 07/31/17 22:50 100 35 07/31/17 22:00 62 07/31/17 20:00 97.8 63 16 128/62 (84) 100 07/31/17 20:00 35 07/31/17 20:00 63 07/31/17 19:50 100 35 07/31/17 18:00 63 07/31/17 16:00 97.2 91 22 203/88 (126) 100 07/31/17 16:00 35 07/31/17 16:00 91 07/31/17 15:51 100 35 07/31/17 15:51 35 Intake & Output 08/01/17 08/01/17 07:00 19:00 Intake Total 1325 ml Output Total 500 ml Balance 825 ml Tube Feeding 1205 ml Other 120 ml Output Urine Total 500 ml # Bowel Movements 0 . Physical Exam CONSTITUTIONAL/GENERAL: This is a morbidly obese, female patient status post tracheostomy on mechanical ventilation. TUBES/LINES/DRAINS: Tracheostomy, Dobbhoff, Female external catheter, PIV SKIN: Generalized pallor. Nonhealing wound from PEG tube site. HEAD: Atraumatic. Normocephalic. EYES: No scleral icterus. No injection or drainage. Fundi not examined. ENT: Nose without bleeding or purulent drainage. NECK: Trachea midline. Tracheostomy in place CARDIOVASCULAR: Regular rate and rhythm without murmurs, gallops, or rubs. RESPIRATORY/CHEST: Tracheostomy to mechanical ventilation, tolerating CPAP trial GASTROINTESTINAL: Protuberant abdomen with nonhealing wound from PEG tube site. GENITOURINARY: Without palpable bladder distension. MUSCULOSKELETAL: Extremities without clubbing or cyanosis. 2+ pitting edema in bilateral lower extremities. LYMPHATICS: No palpable cervical or supraclavicular adenopathy. NEUROLOGICAL: Encephalopathic. Does not respond to verbal stimuli or follow commands; localizes to pain. PSYCHIATRIC: Unable to assess due to patient's clinical condition . Diagnostic Tests Laboratory Laboratory Tests Test 07/30/17 05:00 07/31/17 04:37 White Blood Count 4.5 TH/MM3 (4.0-11.0) 4.1 TH/MM3 (4.0-11.0) Red Blood Count 2.16 MIL/MM3 (4.00-5.30) 2.66 MIL/MM3 (4.00-5.30) Hemoglobin 6.8 GM/DL (11.6-15.3) 8.2 GM/DL (11.6-15.3) Hematocrit 20.7 % (35.0-46.0) 27.1 % (35.0-46.0) Mean Corpuscular Volume 95.7 FL (80.0-100.0) 101.7 FL (80.0-100.0) Mean Corpuscular Hemoglobin 31.5 PG (27.0-34.0) 31.0 PG (27.0-34.0) Mean Corpuscular Hemoglobin Concent 33.0 % (32.0-36.0) 30.5 % (32.0-36.0) Red Cell Distribution Width 18.8 % (11.6-17.2) 19.9 % (11.6-17.2) Platelet Count 122 TH/MM3 (150-450) 48 TH/MM3 (150-450) Mean Platelet Volume 9.2 FL (7.0-11.0) 9.5 FL (7.0-11.0) Neutrophils (%) (Auto) 73.8 % (16.0-70.0) 76.4 % (16.0-70.0) Lymphocytes (%) (Auto) 11.4 % (9.0-44.0) 7.9 % (9.0-44.0) Monocytes (%) (Auto) 11.3 % (0.0-8.0) 11.6 % (0.0-8.0) Eosinophils (%) (Auto) 3.0 % (0.0-4.0) 3.4 % (0.0-4.0) Basophils (%) (Auto) 0.5 % (0.0-2.0) 0.7 % (0.0-2.0) Neutrophils # (Auto) 3.4 TH/MM3 (1.8-7.7) 3.2 TH/MM3 (1.8-7.7) Lymphocytes # (Auto) 0.5 TH/MM3 (1.0-4.8) 0.3 TH/MM3 (1.0-4.8) Monocytes # (Auto) 0.5 TH/MM3 (0-0.9) 0.5 TH/MM3 (0-0.9) Eosinophils # (Auto) 0.1 TH/MM3 (0-0.4) 0.1 TH/MM3 (0-0.4) Basophils # (Auto) 0.0 TH/MM3 (0-0.2) 0.0 TH/MM3 (0-0.2) CBC Comment DIFF FINAL AUTO DIFF Differential Comment AUTO DIFF CONFIRMED Blood Urea Nitrogen 48 MG/DL (7-18) 55 MG/DL (7-18) Creatinine 1.64 MG/DL (0.50-1.00) 1.63 MG/DL (0.50-1.00) Random Glucose 137 MG/DL (74-106) 136 MG/DL (74-106) Calcium Level 8.6 MG/DL (8.5-10.1) 7.6 MG/DL (8.5-10.1) Phosphorus Level 2.2 MG/DL (2.5-4.9) Magnesium Level 2.5 MG/DL (1.5-2.5) Sodium Level 140 MEQ/L (136-145) 140 MEQ/L (136-145) Potassium Level 4.4 MEQ/L (3.5-5.1) 5.3 MEQ/L (3.5-5.1) Chloride Level 109 MEQ/L (98-107) 113 MEQ/L (98-107) Carbon Dioxide Level 23.4 MEQ/L (21.0-32.0) 20.9 MEQ/L (21.0-32.0) Anion Gap 8 MEQ/L (5-15) 6 MEQ/L (5-15) Estimat Glomerular Filtration Rate 31 ML/MIN (>89) 31 ML/MIN (>89) Platelet Estimate LOW (NORMAL) Platelet Morphology Comment NORMAL (NORMAL) Hematology Comments Total Protein 2.8 GM/DL (6.4-8.2) Albumin 0.5 GM/DL (3.4-5.0) Alkaline Phosphatase 93 U/L (45-117) Aspartate Amino Transf (AST/SGOT) 15 U/L (15-37) Alanine Aminotransferase (ALT/SGPT) 13 U/L (10-53) Total Bilirubin 0.5 MG/DL (0.2-1.0) Result Diagram: 07/31/17 0437 07/31/17 0437 Imaging Last 72 hours Impressions Chest X-Ray 07/30/17 0000 Signed Impressions: Service Date/Time: Sunday, July 30, 2017 02:49 - CONCLUSION: Probable mild CHF. Aldair Ziegler MD . Procedures 07/11/2017: Intubation 07/11/2017: OGT placement 07/18/2017: Extubation 07/19/2017: Reintubation 07/25/2017: Tracheostomy . Assessment and Plan Disease Oriented Problem List: (1) Metabolic encephalopathy (2) Seizure disorder (3) Neuropathy (4) Acute respiratory failure with hypoxia and hypercarbia (5) HCAP (healthcare-associated pneumonia) (6) Hypertension (7) Acute kidney insufficiency (8) Protein calorie malnutrition (9) UTI (urinary tract infection) (10) Hypothyroidism (11) Respiratory distress (12) Pneumonia Symptom Scale: (1) Debility 0-10 Scale: Unable to quantify (2) Dyspnea 0-10 Scale: Unable to quantify Pertinent Non-Medical Issues Psychosocial: Patient is originally from [place]. She moved to [place] where she met her . Patient has been 2 times. She had 2 children with her first . Her daughter (Manuela) and son (Landon) lives in [place]. Patient has been to her current for approximately 37 years. She worked with Medicare processing claims. Spiritual: Non-practicing Sabianism per spouse Legal: Per [place] statutes, in the absence of written advanced directives healthcare proxy decision-making falls to the patient's . Ethical issues impacting care: No known ethical issues impacting care at this time. . Important Contacts Reji Henson, : [phone] Manuela Kelly: [phone] . Prognosis Patient is a morbidly obese female with recurrent healthcare associated pneumonia, hypoxic respiratory failure and non-healing wounds status post tracheostomy placement. She has had multiple hospitalizations with subsequent LTAC/SNF placement since Dec, 2016. Awaiting placement at LTAC; long-term prognosis is poor. . Code Status: Full Code Plan * FULL CODE * Decision-making: Patient is currently unable to participate in establishment of medical treatment goals given her clinical condition. It is unknown if she will regain capacity. Per [place] statutes, in the absence of written advanced directives healthcare proxy decision-making falls to her (Reji Henson) . * GOALS REMAIN AGGRESSIVE AT THIS TIME. * Discussed with nurse, Vaibhav. * Spoke to patient's daughter, Manuela, via telephone. Patient's clinical condition was reviewed, questions answered to the best of my ability. Manuela has been trying to make arrangements for her mother to return to [place] where she has friends and family, however the patient has not been stable enough for this. Manuela verbalizes understanding that her mother remains critically ill and her long-term prognosis appears poor. Hospice was introduced. Manuela does not feel that the patient/family is ready for hospice at this time but is considering CODE STATUS and will discuss this further with her father. At this time the patient remains in FULL CODE. * Symptom management-dyspnea: Patient with recurrent HCAP and hypoxic respiratory failure. Patient will likely require long-term ventilation and will be difficult to wean. Status post tracheostomy on 07/25/2017. Daily CPAP trials. 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 Prior to Dec, 2016 the patient was able to ambulate short distances with a walker. Her states she was otherwise independent for all ADLs. Patient has had multiple hospitalizations with LTAC and SNF placement since 12/2016. Physical therapy and occupational therapy following. Patient remains dependent for all mobility, ongoing passive ROM exercises. Patient unable to participate secondary to lethargy. Patient will need placement at LTAC if goals remain aggressive. [facility] declined the patient because she has only 20 days of Medicare left and no secondary insurance. * Palliative care will continue to follow this patient throughout her hospitalization to establish trust, assist with symptom management and clarification of medical treatment goals. . Attestation To help prompt me to consider important information that might be impacting today's encounter and assessment, information from prior notes written by myself or my colleagues may have been "brought forward" into today's note. My signature on this note, however, is an attestation that I personally performed the exam, history, and/or decision-making noted today, and, unless otherwise indicated, the interactions with patient, family, and staff as well as the review of records all occurred today. I also attest that the listed assessment and stated plan reflect my best clinical judgment today based on the combination of historical information, prior notes, and today's exam/ interactions. When time spent is documented, it refers only to time spent today by the signer, or if indicated, combined time spent today by collaborating physician/nurse practitioner. . Zo Nweell Aug 01, 2017 14:34
--- NOTE | 2017-08-01 14:37 | HHI.CCPN ---
Subjective Remarks/Hospital Course 07/11: 77-year-old morbidly obese female patient [facility], due to increased lethargy for the last 2 days, hypoglycemia early in the day with sugars of 44, given glucagon, chest x-ray showing a pneumonia according to facility staff, EMS noted the patient was fairly disoriented, GCS 6, and started bag valve masking her because of respiratory distress and hypoxia with sats in the 87% range despite oxygenation. Patient was brought in bag-valve- mask in progress and was immediately intubated in the emergency department by ED attending. 07/12: Sedated, orally intubated on mechanical ventilation. 07/13 Patient is sedated with Fentanyl and intubated. Afebrile. 07/14 No events overnight, Sedated with Fentanyl and Versed. Afebrile. Failed CPAP trials yesterday. 07/15 No events overnight. Sedated and intubated. ABG on CPAP yesterday showed resp acidosis with PH 7.22 and CO2: 58 07/16 Patient remains sedated and intubated 07/17. No events overnight. Remains sedated and intubated 07/18 Patient remains intubated off sedation. Afebrile. 07/19 Patient s/p extubation yesterday on BIPAP overnight. Awake. ABG last night showed resp acidosis with PH: 7.24, pCO2: 66 07/20 Patient was reintubated yesterday for resp failure. Sedated and intubated. Afebrile. 07/21: new HCAP with GNRs in sputum. persistent respiratory failure. likely will require long-term ventilation and slow wean. will consult general surgery for re-do trach and gastric access. 07/22: no changes. no improvements. gen surgery planning PEG/Trach next week. 07/23: sputum growing enterobacter; now on Cefepime per ID. neuro exam still stable, but fails weaning trials quickly. 07/24: no changes. still failing cpap and weaning trials. CT abd/pelvis done at gen surg request without overt abscess at prior peg site. 07/25: s/p trach today. doing well. still failing cpap. approved for LTAC. surgical contra-indication to PEG placement with induration at old PEG site: will use DHT for enteral access and tube feeds. ID giving final recs for duration of therapy. stable for discharge to LTAC when bed available. 07/26 No events overnight. Patient was rejected by [facility] this morning per rehabilitation case coordinator. Afebrile. 07/27 Patient is sedated with Diprivan and intubated. Afebrile. 07/28 No events overnight. Off sedation. On ventilator via trach. 07/29 No events overnight. Tolerated CPAP for most f day yesterday. Afebrile. 07/30: Remains on mechanical ventilation via tracheostomy. Drowsy/ encephalopathic 07/31: Remains encephalopathic, on mechanical ventilation via tracheostomy. Received 1 unit PRBCs yesterday. No melena or rectal bleeding noted. 08/01: Remains encephalopathic, on mechanical ventilation via tracheostomy. Daily C Pap trials ongoing. Neurologic status remains poor. Objective Vital Signs Date Time Temp Pulse Resp B/P (MAP) Pulse Ox O2 Delivery O2 Flow Rate FiO2 08/01/17 12:09 100 35 08/01/17 06:00 82 08/01/17 04:00 98.0 18 129/58 (81) 07/29/17 22:58 Ventilator Intake and Output 08/01/17 08/01/17 08/02/17 08:00 16:00 00:00 Intake Total 1325 ml Output Total 500 ml Balance 825 ml Result Diagram: 07/31/17 0437 07/31/17 0437 Imaging Last Impressions Abdomen X-Ray 07/25/17 0000 Signed Impressions: Service Date/Time: Tuesday, July 25, 2017 17:34 - CONCLUSION: Dobbhoff catheter tip in the distal stomach. Jasen Delvalle MD Abdomen/Pelvis CT 07/24/17 0000 Signed Impressions: Service Date/Time: Monday, July 24, 2017 14:57 - CONCLUSION: Pleural effusion and atelectasis right greater than left. Bowel gas pattern is unremarkable. No evidence of an abscess. Some induration anterior abdominal wall with some possible early fluid collection inferiorly within the lower pannus. Jame Preciado MD Chest X-Ray 07/21/17 0600 Signed Impressions: Service Date/Time: Friday, July 21, 2017 03:13 - CONCLUSION: Nasogastric tube now in place with the tip below the [id number] of the radiograph. No significant interval change in bilateral pulmonary opacity. Differential diagnosis includes pulmonary edema and infection. Angelito Lovett MD Head CT 07/11/17 0577 Signed Impressions: Service Date/Time: Tuesday, July 11, 2017 21:23 - CONCLUSION: No acute intracranial abnormality Jaden Clark MD Objective Remarks GENERAL: Morbidly obese elderly female s/p trach SKIN: Warm and dry. HEAD: Normocephalic. EYES: No scleral icterus. No injection or drainage. NECK: trachea midline. trach in place CARDIOVASCULAR: Regular rate and rhythm. RESPIRATORY: Orally intubated on mechanical ventilation. GASTROINTESTINAL: Abdomen soft, non-tender, nondistended. left non-healing ulcer area from prior PEG site. MUSCULOSKELETAL: No cyanosis, or edema. Neuro: Encephalopathic, drowsy, not following commands, on mechanical ventilation via tracheostomy A/P Assessment and Plan Assessment: 77yF with morbid obesity and recurrent healthcare associated pneumonia and hypoxic respiratory failure. s/p trach 07/25. stable for transfer to LTAC. contra-indicated for PEG given recent peg site induration. will use DHT for long-term enteral nutrition. from an ID standpoint, would recommend 10 day course of Cefepime iv for recurrent HCAP pneumonia, and 14 day course of iv antifungals. Plan Neuro: metabolic encephalopathy Seizure disorder Neuropathy Off sedation. Monitor neuro status. On Keppra 500mg Q12 oxycodone 10mg po q4h prn for pain. Pulm: Acute hypoxic and hypercarbic Respiratory failure Recurrent healthcare associated pneumonia Reintubated 07/19 Continue with vent support keep sat >92% Bronchodilators, ICU vent bundle. SBT daily as lisa s/p trach 07[facility] [facility]. CV: History of hypertension Monitor HR and BP keep MAP>65mmHg Amiodarone 200mg BID 2d echo 07/20: normal biventricular function, EF 60%, RVSP 47 mmHg. : Acute kidney injury - improving. Free water deficit Monitor renal function, electrolytes replacement as needed. Cr: improving. NS@84ml/hr x 1 liter GI: Morbid Obesity Acute protein calorie malnutrition- moderate On tube feeds- Glucerna 1.5with goal rate 65ml/hr, On roly Colace, Lactulose for bowel regimen. On Reglan 5mg IV Q8 PRN ICU electrolyte protocol ID: Recurrent HCAP pneumonia Urinary tract infection Continue cefepime. Urine cx: 07/11: Kleb ESBL, Citrobacter. Repeat urine cx 07/18 - Kirsten Albicans sputum cx: Enterobacter ID following. Heme: Anemia secondary to chronic disease Monitor CBC, on Ferrous sulfate and Folic acid Hep PLT ab -negative 1 unit PRBCs ordered on 07/30 for hemoglobin 7.2, no evidence of melena or rectal bleeding. Endo: Hypothyroidism Hyperglycemia of Critical illness SSI medium scale for glycemic control GI prophylaxis- on Pepcid DVT prophylaxis- Heparin SQ Dispo: Awaiting placement in LTAC. Patient was rejected by [facility] . consulted palliative care to assist with deciding goals of therapy as snf prognosis appears poor. Level 2 Gerard Zepeda MD Aug 01, 2017 14:37
[2017-08-01] MEDS: HYDROmorphone HCL PF 2 MG/ML VIAL IV PUSH PRN (18:12)
[2017-08-01] MEDS: AMITRIPTYLINE HCL 10 MG TAB PO SCH (20:38)
[2017-08-02] VITALS (28 sets, daily range): BP systolic 103–190; BP diastolic 46–83; PULSE 59–109; RESP 18–29; TEMP 98.3–100.5; O2SAT 96–100
[2017-08-02] MEDS: HYDROmorphone HCL PF 2 MG/ML VIAL IV PUSH PRN (03:39)
[2017-08-02] MEDS: CHLORHEXIDINE GLUCONATE 2 % 1 PACK (2 CLOTHS) TOP SCH (03:40)
[2017-08-02] MEDS: INSULIN NovoLIN REGULAR SUPPLEMENTAL SCALE SQ SCH ×4 (03:50→20:42)
[2017-08-02] MEDS: LEVOTHYROXINE SODIUM 25 MCG TAB PO SCH (05:35)
[2017-08-02] MEDS: FERROUS SULFATE 300 MG /5ML UDC PO SCH ×2 (08:51→20:41)
[2017-08-02] MEDS: busPIRone HCL 10 MG TAB PO SCH ×2 (08:51→20:41)
[2017-08-02] MEDS: FOLIC ACID 1 MG TAB PO SCH (08:51)
[2017-08-02] MEDS: levETIRAcetam 500 MG/5 ML UDC NG SCH ×2 (08:51→20:41)
[2017-08-02] MEDS: FAMOTIDINE 20 MG/2 ML VIAL IV PUSH SCH (08:51)
[2017-08-02] MEDS: AMIODARONE 200 MG TAB PO SCH ×2 (08:51→20:41)
[2017-08-02] MEDS: ASCORBIC ACID 500 MG TAB PO SCH ×2 (08:51→20:41)
[2017-08-02] MEDS: GABAPENTIN 300 MG CAP PO SCH (08:51)
[2017-08-02] MEDS: MULTIVITAMIN TAB PO SCH (08:51)
[2017-08-02] MEDS: COLLAGENASE OINT 30 GM TUBE TOPICAL SCH (08:52)
[2017-08-02] MEDS: SODIUM CHLORIDE 0.9% FLUSH 10 ML FLUSH IV FLUSH SCH ×2 (08:52→20:43)
[2017-08-02] MEDS: ARTIFICIAL TEARS OPTH SOLN 15 ML BTL EACH EYE SCH ×3 (08:52→16:38)
[2017-08-02] MEDS: DOCUSATE SODIUM 50 MG/SENNA 8.6 MG TAB PO SCH ×2 (08:57→20:42)
[2017-08-02] MEDS: LACTULOSE SYRUP 20 GM/30 ML CUP PO SCH ×3 (08:57→16:39)
[2017-08-02 08:59] LABS: HEMATOCRIT 23.6 % (35.0-46.0); HEMOGLOBIN 7.6 GM/DL (11.6-15.3); MEAN CELL VOLUME 97.3 FL (80.0-100.0); MEAN CORPUSCULAR HEMOGLOBIN 31.2 PG (27.0-34.0); MEAN CORPUSCULAR HGB CONC 32.1 % (32.0-36.0); MEAN PLATELET VOLUME 9.5 FL (7.0-11.0); PLATELET COUNT 99 TH/MM3 (150-450); RED BLOOD COUNT 2.43 MIL/MM3 (4.00-5.30); RED CELL DISTRIBUTION WIDTH 18.8 % (11.6-17.2); WHITE BLOOD COUNT 4.5 TH/MM3 (4.0-11.0)
[2017-08-02] MEDS: ZINC SULFATE 220 MG CAP PO SCH (09:03)
[2017-08-02 09:32] LABS: BICARBONATE 20.8 MEQ/L (21.0-32.0); CALCIUM 9.1 MG/DL (8.5-10.1); CREATININE 2.01 MG/DL (0.50-1.00)
[2017-08-02 09:38] LABS: BANDS 1 % (0-6); LYMPHOCYTES 12 % (9-44); MONOCYTES 7 % (0-8); MYELOCYTES 3 % (0-0); NEUTROPHIL # MANUAL DIFF 3.6 TH/MM3 (1.8-7.7); POLYS (SEG NEUTROPHILS) 75 % (16-70)
--- NOTE | 2017-08-02 09:39 | HHI.CCPN ---
Subjective Remarks/Hospital Course 07/11: 77-year-old morbidly obese female patient sent in from shelter, due to increased lethargy for the last 2 days, hypoglycemia early in the day with sugars of 44, given glucagon, chest x-ray showing a pneumonia according to facility staff, EMS noted the patient was fairly disoriented, GCS 6, and started bag valve masking her because of respiratory distress and hypoxia with sats in the 87% range despite oxygenation. Patient was brought in bag-valve- mask in progress and was immediately intubated in the emergency department by ED attending. 07/12: Sedated, orally intubated on mechanical ventilation. 07/13 Patient is sedated with Fentanyl and intubated. Afebrile. 07/14 No events overnight, Sedated with Fentanyl and Versed. Afebrile. Failed CPAP trials yesterday. 07/15 No events overnight. Sedated and intubated. ABG on CPAP yesterday showed resp acidosis with PH 7.22 and CO2: 58 07/16 Patient remains sedated and intubated 07/17. No events overnight. Remains sedated and intubated 07/18 Patient remains intubated off sedation. Afebrile. 07/19 Patient s/p extubation yesterday on BIPAP overnight. Awake. ABG last night showed resp acidosis with PH: 7.24, pCO2: 66 07/20 Patient was reintubated yesterday for resp failure. Sedated and intubated. Afebrile. 07/21: new HCAP with GNRs in sputum. persistent respiratory failure. likely will require long-term ventilation and slow wean. will consult general surgery for re-do trach and gastric access. 07/22: no changes. no improvements. gen surgery planning PEG/Trach next week. 07/23: sputum growing enterobacter; now on Cefepime per ID. neuro exam still stable, but fails weaning trials quickly. 07/24: no changes. still failing cpap and weaning trials. CT abd/pelvis done at gen surg request without overt abscess at prior peg site. 07/25: s/p trach today. doing well. still failing cpap. approved for LTAC. surgical contra-indication to PEG placement with induration at old PEG site: will use DHT for enteral access and tube feeds. ID giving final recs for duration of therapy. stable for discharge to LTAC when bed available. 07/26 No events overnight. Patient was rejected by [facility] this morning per immigration case worker. Afebrile. 07/27 Patient is sedated with Diprivan and intubated. Afebrile. 07/28 No events overnight. Off sedation. On ventilator via trach. 07/29 No events overnight. Tolerated CPAP for most f day yesterday. Afebrile. 07/30: Remains on mechanical ventilation via tracheostomy. Drowsy/ encephalopathic 07/31: Remains encephalopathic, on mechanical ventilation via tracheostomy. Received 1 unit PRBCs yesterday. No melena or rectal bleeding noted. 08/01: Remains encephalopathic, on mechanical ventilation via tracheostomy. Daily C Pap trials ongoing. Neurologic status remains poor. 08/02: no improvements, no changes. does not meet inpatient criteria, but funding problems prevent appropriate placement. overall prognosis very poor. unlikely that she will survive this medical illness. Objective Vital Signs Date Time Temp Pulse Resp B/P (MAP) Pulse Ox O2 Delivery O2 Flow Rate FiO2 08/02/17 08:43 35 08/02/17 08:43 97 08/02/17 06:00 65 08/02/17 04:00 98.3 18 107/47 (67) 07/29/17 22:58 Ventilator Intake and Output 08/02/17 08/02/17 08/03/17 08:00 16:00 00:00 Intake Total 634 ml Output Total 650 ml Balance -16 ml Result Diagram: 07/31/17 0437 08/02/17 0811 Imaging Last Impressions Abdomen X-Ray 07/25/17 0000 Signed Impressions: Service Date/Time: Tuesday, July 25, 2017 17:34 - CONCLUSION: Dobbhoff catheter tip in the distal stomach. Jasen Delvalle MD Abdomen/Pelvis CT 07/24/17 0000 Signed Impressions: Service Date/Time: Monday, July 24, 2017 14:57 - CONCLUSION: Pleural effusion and atelectasis right greater than left. Bowel gas pattern is unremarkable. No evidence of an abscess. Some induration anterior abdominal wall with some possible early fluid collection inferiorly within the lower pannus. Jame Preciado MD Chest X-Ray 07/21/17 0600 Signed Impressions: Service Date/Time: Friday, July 21, 2017 03:13 - CONCLUSION: Nasogastric tube now in place with the tip below the [id number] of the radiograph. No significant interval change in bilateral pulmonary opacity. Differential diagnosis includes pulmonary edema and infection. Angelito Lovett MD Head CT 07/11/17 6750 Signed Impressions: Service Date/Time: Tuesday, July 11, 2017 21:23 - CONCLUSION: No acute intracranial abnormality Jaden Clark MD Objective Remarks GENERAL: Morbidly obese elderly female s/p trach SKIN: Warm and dry. HEAD: Normocephalic. EYES: No scleral icterus. No injection or drainage. NECK: trachea midline. trach in place CARDIOVASCULAR: Regular rate and rhythm. RESPIRATORY: Orally intubated on mechanical ventilation. GASTROINTESTINAL: Abdomen soft, non-tender, nondistended. left non-healing ulcer area from prior PEG site. MUSCULOSKELETAL: No cyanosis, or edema. Neuro: Encephalopathic, drowsy, not following commands, on mechanical ventilation via tracheostomy A/P Assessment and Plan Assessment: 77yF with morbid obesity and recurrent healthcare associated pneumonia and hypoxic respiratory failure. s/p trach 07/25. contra-indicated for PEG given recent peg site induration. will use DHT for long-term enteral nutrition. no placement plan at this time. Plan Neuro: metabolic encephalopathy Seizure disorder Neuropathy Off sedation. Monitor neuro status. On Keppra 500mg Q12 oxycodone 5mg po q4h prn for pain. Pulm: Acute hypoxic and hypercarbic Respiratory failure Recurrent healthcare associated pneumonia Reintubated 07/19 Continue with vent support keep sat >92% Bronchodilators, ICU vent bundle. SBT daily as lisa s/p trach 07/[address] Srinivas Barlow toilet, [facility]. failing daily cpap trials for weakness. CV: History of hypertension Monitor HR and BP keep MAP>65mmHg Amiodarone 200mg BID 2d echo 07/20: normal biventricular function, EF 60%, RVSP 47 mmHg. : Acute kidney injury Free water deficit Monitor renal function, electrolytes replacement as needed. GI: Morbid Obesity Acute protein calorie malnutrition- moderate On tube feeds- Glucerna 1.5with goal rate 65ml/hr, On roly Colace, Lactulose for bowel regimen. On Reglan 5mg IV Q8 PRN ICU electrolyte protocol ID: Recurrent HCAP pneumonia- resolved. Urinary tract infection- resolved. off abx. monitor clinically.. Urine cx: 07/11: Kleb ESBL, Citrobacter. Repeat urine cx 07/18 - Kirsten Albicans sputum cx: Enterobacter ID following. Heme: Anemia secondary to chronic disease Monitor CBC, on Ferrous sulfate and Folic acid Hep PLT ab -negative 1 unit PRBCs ordered on 07/30 for hemoglobin 7.2, no evidence of melena or rectal bleeding. Endo: Hypothyroidism Hyperglycemia of Critical illness SSI medium scale for glycemic control GI prophylaxis- on Pepcid DVT prophylaxis- Heparin SQ Dispo: Awaiting placement. Patient was rejected by [facility] and [facility] for not enough medicare days left. will look into vent-capable SNF facilities. does not meet inpatient criteria. consulted palliative care to assist with deciding goals of therapy as nursing home prognosis appears poor. Rafael Wilson MD Aug 02, 2017 09:39
--- NOTE | 2017-08-02 10:47 | HHI.HCPN ---
Reason for visit a. To assist with evaluation and management of symptoms including: Debility , dyspnea, encephalopathy b. To assist medical decision maker(s) with: better understanding of current medical conditions; weighing benefits/burdens of medical treatment options; making medical treatment decisions. . Subjective/Interval History Follow up visit for symptom management and clarification of medical treatment goals; no family at bedside. Mrs. Henson is a 76-year-old female with morbid obesity, recurrent HCAP and hypoxic respiratory failure. Follow-up chest x-ray on 07/30/2017 with probable mild CHF. Attempting daily CPAP trials this morning status post tracheostomy on 08/01/2017. Oxygen saturation 100% on 35% FiO2, PEEP 5. Afebrile. Having intermittent tachycardia and hypotension. Neurological status remains poor. CBC: WBC 4.5, hemoglobin 7.6, hematocrit 23.6, platelets 99 status post being transfused with 1 unit PRBCs on 07/30/17 for hemoglobin of 7.2 with no evidence of melena or rectal bleeding. CMP showing sodium of 137, potassium 5.5, chloride 107, carbon dioxide 20.8, calcium 9.1, random glucose 141, BUN 67, creatinine 2.01, GFR [address] PEG tube; patient tolerating artificial nutrition via Dobbhoff. Glucerna 1.5 with goal rate of 65 mL per hour per M.D. Total protein: 2.8, albumin 0.5. Physical therapy and occupational therapy following. Patient remains dependent for all mobility, ongoing passive ROM exercises. Patient unable to participate secondary to lethargy. Goals remain aggressive; patient awaiting placement. However patient was rejected by [facility] and [facility] because she did not have enough Medicare days left. Will look into vent-capable SNF facilities. It appears there is one in [place]; family is looking into facilities in [place]. . Family/friend interactions Spoke with patient's daughter, Manuela, a telephone to discuss goals of care as the patient's long-term prognosis appears poor. Update provided on patient's clinical condition. Spoke with patient's daughter, Manuela, a telephone to discuss goals of care as the patient's long-term prognosis appears poor. Update provided on patient's clinical condition. Ongoing aggressive goals at this time ; patient awaiting placement. However patient was rejected by [facility] because she did not have enough Medicare days left. Will look into vent-capable SNF facilities. It appears there is one in [place]; family is looking into facilities in [place]. Spoke with patient spouse later this afternoon; he confirmed that they are trying to locate an appropriate facility in [place]. . . Advance Directives Advance Directive Specifics Documented care wishes: No known document wishes have been completed. . Objective Vital Signs Date Time Temp Pulse Resp B/P (MAP) Pulse Ox O2 Delivery O2 Flow Rate FiO2 08/02/17 08:43 35 08/02/17 08:43 97 35 08/02/17 06:00 65 08/02/17 04:33 97 35 08/02/17 04:00 35 08/02/17 04:00 68 08/02/17 04:00 98.3 68 18 107/47 (67) 96 08/02/17 02:00 84 08/02/17 01:20 35 08/02/17 01:04 100 35 08/02/17 00:00 84 08/02/17 00:00 35 08/02/17 00:00 98.8 84 25 139/61 (87) 100 08/01/17 22:00 81 08/01/17 20:23 100 35 08/01/17 20:00 62 08/01/17 20:00 35 08/01/17 20:00 99.3 62 17 97/46 (63) 100 08/01/17 18:00 93 08/01/17 16:17 100 35 08/01/17 16:01 99.3 72 19 118/55 (76) 99 08/01/17 16:00 35 08/01/17 16:00 74 08/01/17 14:00 98 08/01/17 12:09 100 35 08/01/17 12:00 74 08/01/17 12:00 35 08/01/17 12:00 99.1 74 19 130/58 (82) 100 Intake & Output 08/02/17 08/02/17 07:00 19:00 Intake Total 634 ml Output Total 650 ml Balance -16 ml Tube Feeding 634 ml Output Urine Total 650 ml # Bowel Movements 1 . Physical Exam CONSTITUTIONAL/GENERAL: This is a morbidly obese, female patient status post tracheostomy. TUBES/LINES/DRAINS: Tracheostomy, Dobbhoff, Female external catheter, PIV SKIN: Generalized pallor. Ecchymosis on bilateral upper extremities. HEAD: Atraumatic. Normocephalic. EYES: No scleral icterus. No injection or drainage. Fundi not examined. ENT: Nose without bleeding or purulent drainage. NECK: Trachea midline. Tracheostomy to CPAP CARDIOVASCULAR: Regular rate and rhythm without murmurs, gallops, or rubs. RESPIRATORY/CHEST: Tracheostomy to mechanical ventilation; daily CPAP trials. Breath sounds diminished, coarse. GASTROINTESTINAL: Protuberant abdomen with nonhealing ulcer from previous PEG tube site. GENITOURINARY: Without palpable bladder distension. MUSCULOSKELETAL: Extremities without clubbing or cyanosis. Upper and lower extremities significantly edematous, weeping. LYMPHATICS: No palpable cervical or supraclavicular adenopathy. NEUROLOGICAL: Encephalopathic. Does not respond to verbal stimuli or follow commands; localizes to pain. PSYCHIATRIC: Unable to assess due to patient's clinical condition . Diagnostic Tests Laboratory Laboratory Tests Test 07/31/17 04:37 08/02/17 08:11 White Blood Count 4.1 TH/MM3 (4.0-11.0) 4.5 TH/MM3 (4.0-11.0) Red Blood Count 2.66 MIL/MM3 (4.00-5.30) 2.43 MIL/MM3 (4.00-5.30) Hemoglobin 8.2 GM/DL (11.6-15.3) 7.6 GM/DL (11.6-15.3) Hematocrit 27.1 % (35.0-46.0) 23.6 % (35.0-46.0) Mean Corpuscular Volume 101.7 FL (80.0-100.0) 97.3 FL (80.0-100.0) Mean Corpuscular Hemoglobin 31.0 PG (27.0-34.0) 31.2 PG (27.0-34.0) Mean Corpuscular Hemoglobin Concent 30.5 % (32.0-36.0) 32.1 % (32.0-36.0) Red Cell Distribution Width 19.9 % (11.6-17.2) 18.8 % (11.6-17.2) Platelet Count 48 TH/MM3 (150-450) 99 TH/MM3 (150-450) Mean Platelet Volume 9.5 FL (7.0-11.0) 9.5 FL (7.0-11.0) Neutrophils (%) (Auto) 76.4 % (16.0-70.0) Lymphocytes (%) (Auto) 7.9 % (9.0-44.0) Monocytes (%) (Auto) 11.6 % (0.0-8.0) Eosinophils (%) (Auto) 3.4 % (0.0-4.0) Basophils (%) (Auto) 0.7 % (0.0-2.0) Neutrophils # (Auto) 3.2 TH/MM3 (1.8-7.7) Lymphocytes # (Auto) 0.3 TH/MM3 (1.0-4.8) Monocytes # (Auto) 0.5 TH/MM3 (0-0.9) Eosinophils # (Auto) 0.1 TH/MM3 (0-0.4) Basophils # (Auto) 0.0 TH/MM3 (0-0.2) CBC Comment AUTO DIFF AUTO DIFF Differential Comment AUTO DIFF CONFIRMED FINAL DIFF MANUAL Platelet Estimate LOW (NORMAL) LOW (NORMAL) Platelet Morphology Comment NORMAL (NORMAL) ENLARGED (NORMAL) Hematology Comments Blood Urea Nitrogen 55 MG/DL (7-18) 67 MG/DL (7-18) Creatinine 1.63 MG/DL (0.50-1.00) 2.01 MG/DL (0.50-1.00) Random Glucose 136 MG/DL (74-106) 141 MG/DL (74-106) Total Protein 2.8 GM/DL (6.4-8.2) Albumin 0.5 GM/DL (3.4-5.0) Calcium Level 7.6 MG/DL (8.5-10.1) 9.1 MG/DL (8.5-10.1) Alkaline Phosphatase 93 U/L (45-117) Aspartate Amino Transf (AST/SGOT) 15 U/L (15-37) Alanine Aminotransferase (ALT/SGPT) 13 U/L (10-53) Total Bilirubin 0.5 MG/DL (0.2-1.0) Sodium Level 140 MEQ/L (136-145) 137 MEQ/L (136-145) Potassium Level 5.3 MEQ/L (3.5-5.1) 5.5 MEQ/L (3.5-5.1) Chloride Level 113 MEQ/L (98-107) 107 MEQ/L (98-107) Carbon Dioxide Level 20.9 MEQ/L (21.0-32.0) 20.8 MEQ/L (21.0-32.0) Anion Gap 6 MEQ/L (5-15) 9 MEQ/L (5-15) Estimat Glomerular Filtration Rate 31 ML/MIN (>89) 24 ML/MIN (>89) Differential Total Cells Counted 100 Neutrophils % (Manual) 75 % (16-70) Band Neutrophils % 1 % (0-6) Lymphocytes % 12 % (9-44) Monocytes % 7 % (0-8) Eosinophils % 2 % (0-4) Neutrophils # (Manual) 3.6 TH/MM3 (1.8-7.7) Myelocytes 3 % (0-0) . Result Diagram: 08/02/17 0811 08/02/17 0811 Procedures 07/11/2017: Intubation 07/11/2017: OGT placement 07/18/2017: Extubation 07/19/2017: Reintubation 07/25/2017: Tracheostomy . Assessment and Plan Disease Oriented Problem List: (1) Metabolic encephalopathy (2) Seizure disorder (3) Neuropathy (4) Acute respiratory failure with hypoxia and hypercarbia (5) HCAP (healthcare-associated pneumonia) (6) Hypertension (7) Acute kidney insufficiency (8) Protein calorie malnutrition (9) UTI (urinary tract infection) (10) Hypothyroidism (11) Respiratory distress (12) Pneumonia Symptom Scale: (1) Debility 0-10 Scale: Unable to quantify (2) Dyspnea 0-10 Scale: Unable to quantify Pertinent Non-Medical Issues Psychosocial: Patient is originally from [place]. She moved to [place] where she met her . Patient has been 2 times. She had 2 children with her first . Her daughter (Manuela) and son (Landon) lives in [place]. Patient has been to her current for approximately 37 years. She worked with Medicare processing claims. Spiritual: Non-practicing [employer] per spouse Legal: Per [place] statutes, in the absence of written advanced directives healthcare proxy decision-making falls to the patient's . Ethical issues impacting care: No known ethical issues impacting care at this time. . Important Contacts Reji Henson, : [phone] Manuela Kelly: [phone] . Prognosis Patient is a morbidly obese female with recurrent healthcare associated pneumonia, hypoxic respiratory failure and non-healing wounds status post tracheostomy placement. She has had multiple hospitalizations with subsequent LTAC/SNF placement since Dec, 2016. Overall prognosis is very poor; patient will likely not survive this medical illness. . Code Status: Full Code Plan * FULL CODE * Decision-making: Patient is currently unable to participate in establishment of medical treatment goals given her clinical condition. It is unknown if she will regain capacity. Per [place] statutes, in the absence of written advanced directives healthcare proxy decision-making falls to her (Reji Henson) . * GOALS REMAIN AGGRESSIVE AT THIS TIME. * Discussed with nurse, João and Dr. Wilson * Spoke with patient's daughter, Manuela, a telephone to discuss goals of care as the patient's long-term prognosis appears poor. Update provided on patient's clinical condition. Ongoing aggressive goals at this time; patient awaiting placement. However patient was rejected by [facility] and [facility] because she did not have enough Medicare days left. Will look into vent-capable SNF facilities. It appears there is one in [place]; family is looking into facilities in [place]. Spoke with patient spouse later this afternoon; he confirmed that they are trying to locate an appropriate facility in [place]. * Symptom management-dyspnea: Patient with recurrent HCAP and hypoxic respiratory failure. Patient will likely require long-term ventilation and will be difficult to wean. Status post tracheostomy on 07/25/2017. Daily CPAP trials. 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 Prior to Dec, 2016 the patient was able to ambulate short distances with a walker. Her states she was otherwise independent for all ADLs. Patient had ongoing hospitalizations and LTAC/SNF recent symptoms 2016. Physical therapy and occupational therapy following. Patient remains dependent for all mobility, ongoing passive ROM exercises. Patient unable to participate secondary to lethargy. Spoke with patient's daughter, Manuela, a telephone to discuss goals of care as the patient's long-term prognosis appears poor. Update provided on patient's clinical condition. Ongoing aggressive goals at this time; patient awaiting placement. However patient was rejected by [facility] and [facility] because she did not have enough Medicare days left. Will look into vent-capable SNF facilities. It appears there is one in [place]; family is looking into facilities in [place]. * Symptom management-encephalopathy: Neurological status remains poor. Does not respond to verbal stimuli or follow commands; localizes to pain. CT head on 07/11 no acute intracranial abnormalities. * Palliative care will continue to follow this patient throughout her hospitalization to establish trust, assist with symptom management and clarification of medical treatment goals. . Attestation To help prompt me to consider important information that might be impacting today's encounter and assessment, information from prior notes written by myself or my colleagues may have been "brought forward" into today's note. My signature on this note, however, is an attestation that I personally performed the exam, history, and/or decision-making noted today, and, unless otherwise indicated, the interactions with patient, family, and staff as well as the review of records all occurred today. I also attest that the listed assessment and stated plan reflect my best clinical judgment today based on the combination of historical information, prior notes, and today's exam/ interactions. When time spent is documented, it refers only to time spent today by the signer, or if indicated, combined time spent today by collaborating physician/nurse practitioner. . Zo Newell Aug 02, 2017 10:47
[2017-08-02] MEDS: HEPARIN SODIUM - SQ 10,000 UNITS/ML VIAL SQ SCH ×2 (14:35→20:42)
[2017-08-02] MEDS: hydrALAZINE HCL 20 MG/ML VIAL IV PUSH PRN (18:52)
[2017-08-02] MEDS: FAMOTIDINE 40 MG/5 ML LIQ 50 ML BTL NG SCH (20:41)
[2017-08-02] MEDS: AMITRIPTYLINE HCL 10 MG TAB PO SCH (20:41)
[2017-08-03] VITALS (26 sets, daily range): BP systolic 95–166; BP diastolic 45–70; PULSE 60–92; RESP 16–25; TEMP 97.8–98.8; O2SAT 98–100
[2017-08-03] MEDS: HYDROmorphone HCL PF 2 MG/ML VIAL IV PUSH PRN (02:18)
[2017-08-03] MEDS: CHLORHEXIDINE GLUCONATE 2 % 1 PACK (2 CLOTHS) TOP SCH (04:00)
[2017-08-03] MEDS: INSULIN NovoLIN REGULAR SUPPLEMENTAL SCALE SQ SCH ×4 (04:05→21:08)
[2017-08-03] MEDS: HEPARIN SODIUM - SQ 10,000 UNITS/ML VIAL SQ SCH ×3 (04:05→21:08)
[2017-08-03] MEDS: LEVOTHYROXINE SODIUM 25 MCG TAB PO SCH (04:44)
[2017-08-03] MEDS: ARTIFICIAL TEARS OPTH SOLN 15 ML BTL EACH EYE SCH ×3 (09:00→18:00)
[2017-08-03] MEDS: FAMOTIDINE 40 MG/5 ML LIQ 50 ML BTL NG SCH ×2 (09:00→21:09)
[2017-08-03] MEDS: COLLAGENASE OINT 30 GM TUBE TOPICAL SCH (09:00)
[2017-08-03] MEDS: SODIUM CHLORIDE 0.9% FLUSH 10 ML FLUSH IV FLUSH SCH ×2 (09:00→21:07)
[2017-08-03] MEDS: levETIRAcetam 500 MG/5 ML UDC NG SCH ×2 (09:35→21:07)
[2017-08-03] MEDS: busPIRone HCL 10 MG TAB PO SCH ×2 (09:36→21:08)
[2017-08-03] MEDS: FOLIC ACID 1 MG TAB PO SCH (09:36)
[2017-08-03] MEDS: AMIODARONE 200 MG TAB PO SCH ×2 (09:36→21:08)
[2017-08-03] MEDS: ASCORBIC ACID 500 MG TAB PO SCH ×2 (09:36→21:08)
[2017-08-03] MEDS: GABAPENTIN 300 MG CAP PO SCH (09:36)
[2017-08-03] MEDS: ZINC SULFATE 220 MG CAP PO SCH (09:36)
[2017-08-03] MEDS: LACTULOSE SYRUP 20 GM/30 ML CUP PO SCH ×3 (09:36→18:52)
[2017-08-03] MEDS: MULTIVITAMIN TAB PO SCH (09:36)
[2017-08-03] MEDS: DOCUSATE SODIUM 50 MG/SENNA 8.6 MG TAB PO SCH ×2 (09:36→21:08)
[2017-08-03] MEDS: FERROUS SULFATE 300 MG /5ML UDC PO SCH ×2 (09:36→21:07)
--- NOTE | 2017-08-03 10:17 | HHI.CCPN ---
Subjective Remarks/Hospital Course 07/11: 77-year-old morbidly obese female patient sent in from long-term, due to increased lethargy for the last 2 days, hypoglycemia early in the day with sugars of 44, given glucagon, chest x-ray showing a pneumonia according to facility staff, EMS noted the patient was fairly disoriented, GCS 6, and started bag valve masking her because of respiratory distress and hypoxia with sats in the 87% range despite oxygenation. Patient was brought in bag-valve- mask in progress and was immediately intubated in the emergency department by ED attending. 07/12: Sedated, orally intubated on mechanical ventilation. 07/13 Patient is sedated with Fentanyl and intubated. Afebrile. 07/14 No events overnight, Sedated with Fentanyl and Versed. Afebrile. Failed CPAP trials yesterday. 07/15 No events overnight. Sedated and intubated. ABG on CPAP yesterday showed resp acidosis with PH 7.22 and CO2: 58 07/16 Patient remains sedated and intubated 07/17. No events overnight. Remains sedated and intubated 07/18 Patient remains intubated off sedation. Afebrile. 07/19 Patient s/p extubation yesterday on BIPAP overnight. Awake. ABG last night showed resp acidosis with PH: 7.24, pCO2: 66 07/20 Patient was reintubated yesterday for resp failure. Sedated and intubated. Afebrile. 07/21: new HCAP with GNRs in sputum. persistent respiratory failure. likely will require long-term ventilation and slow wean. will consult general surgery for re-do trach and gastric access. 07/22: no changes. no improvements. gen surgery planning PEG/Trach next week. 07/23: sputum growing enterobacter; now on Cefepime per ID. neuro exam still stable, but fails weaning trials quickly. 07/24: no changes. still failing cpap and weaning trials. CT abd/pelvis done at gen surg request without overt abscess at prior peg site. 07/25: s/p trach today. doing well. still failing cpap. approved for LTAC. surgical contra-indication to PEG placement with induration at old PEG site: will use DHT for enteral access and tube feeds. ID giving final recs for duration of therapy. stable for discharge to LTAC when bed available. 07/26 No events overnight. Patient was rejected by [facility] this morning per case repairer. Afebrile. 07/27 Patient is sedated with Diprivan and intubated. Afebrile. 07/28 No events overnight. Off sedation. On ventilator via trach. 07/29 No events overnight. Tolerated CPAP for most f day yesterday. Afebrile. 07/30: Remains on mechanical ventilation via tracheostomy. Drowsy/ encephalopathic 07/31: Remains encephalopathic, on mechanical ventilation via tracheostomy. Received 1 unit PRBCs yesterday. No melena or rectal bleeding noted. 08/01: Remains encephalopathic, on mechanical ventilation via tracheostomy. Daily C Pap trials ongoing. Neurologic status remains poor. 08/02: no improvements, no changes. does not meet inpatient criteria, but funding problems prevent appropriate placement. overall prognosis very poor. unlikely that she will survive this medical illness. 08/03: continues without significant changes or improvements. Objective Vital Signs Date Time Temp Pulse Resp B/P (MAP) Pulse Ox O2 Delivery O2 Flow Rate FiO2 08/03/17 10:00 77 25 99 08/03/17 09:23 35 08/03/17 09:01 95/45 (62) 08/03/17 08:00 98.8 Intake and Output 08/03/17 08/03/17 08/04/17 08:00 16:00 00:00 Intake Total 511 ml Output Total 650 ml Balance -139 ml Result Diagram: 08/02/17 0811 08/02/17 0811 Imaging Last Impressions Abdomen X-Ray 07/25/17 0000 Signed Impressions: Service Date/Time: Tuesday, July 25, 2017 17:34 - CONCLUSION: Dobbhoff catheter tip in the distal stomach. Jasen Delvalle MD Abdomen/Pelvis CT 07/24/17 0000 Signed Impressions: Service Date/Time: Monday, July 24, 2017 14:57 - CONCLUSION: Pleural effusion and atelectasis right greater than left. Bowel gas pattern is unremarkable. No evidence of an abscess. Some induration anterior abdominal wall with some possible early fluid collection inferiorly within the lower pannus. Jame Preciado MD Chest X-Ray 07/21/17 0600 Signed Impressions: Service Date/Time: Friday, July 21, 2017 03:13 - CONCLUSION: Nasogastric tube now in place with the tip below the [id number] of the radiograph. No significant interval change in bilateral pulmonary opacity. Differential diagnosis includes pulmonary edema and infection. Angelito Lovett MD Head CT 07/11/17 9832 Signed Impressions: Service Date/Time: Tuesday, July 11, 2017 21:23 - CONCLUSION: No acute intracranial abnormality Jaden Clark MD Objective Remarks GENERAL: Morbidly obese elderly female s/p trach SKIN: Warm and dry. HEAD: Normocephalic. EYES: No scleral icterus. No injection or drainage. NECK: trachea midline. trach in place CARDIOVASCULAR: Regular rate and rhythm. RESPIRATORY: Orally intubated on mechanical ventilation. GASTROINTESTINAL: Abdomen soft, non-tender, nondistended. left non-healing ulcer area from prior PEG site. MUSCULOSKELETAL: No cyanosis, or edema. Neuro: Encephalopathic, drowsy, not following commands, on mechanical ventilation via tracheostomy A/P Assessment and Plan Assessment: 77yF with morbid obesity and recurrent healthcare associated pneumonia and hypoxic respiratory failure. s/p trach 07/25. contra-indicated for PEG given recent peg site induration. will use DHT for long-term enteral nutrition. no placement plan at this time. Plan Neuro: metabolic encephalopathy Seizure disorder Neuropathy Off sedation. Monitor neuro status. On Keppra 500mg Q12 oxycodone 5mg po q4h prn for pain. Pulm: Acute hypoxic and hypercarbic Respiratory failure Recurrent healthcare associated pneumonia Reintubated 07/19 Continue with vent support keep sat >92% Bronchodilators, ICU vent bundle. SBT daily as lisa s/p trach 07/[address] Srinivas [facility], counts include [facility] beds at the [facility]. failing daily cpap trials for weakness. CV: History of hypertension Monitor HR and BP keep MAP>65mmHg Amiodarone 200mg BID 2d echo 07/20: normal biventricular function, EF 60%, RVSP 47 mmHg. : Acute kidney injury Free water deficit Monitor renal function, electrolytes replacement as needed. GI: Morbid Obesity Acute protein calorie malnutrition- moderate On tube feeds- Glucerna 1.5with goal rate 65ml/hr, On roly Colace, Lactulose for bowel regimen. On Reglan 5mg IV Q8 PRN ICU electrolyte protocol ID: Recurrent HCAP pneumonia- resolved. Urinary tract infection- resolved. off abx. monitor clinically.. Urine cx: 07/11: Kleb ESBL, Citrobacter. Repeat urine cx 07/18 - Kirsten Albicans sputum cx: Enterobacter ID following. Heme: Anemia secondary to chronic disease Monitor CBC, on Ferrous sulfate and Folic acid Hep PLT ab -negative 1 unit PRBCs ordered on 07/30 for hemoglobin 7.2, no evidence of melena or rectal bleeding. Endo: Hypothyroidism Hyperglycemia of Critical illness SSI medium scale for glycemic control GI prophylaxis- on Pepcid DVT prophylaxis- Heparin SQ Dispo: Awaiting placement. Patient was rejected by [facility] for not enough medicare days left. will look into vent-capable SNF facilities. does not meet inpatient criteria. consulted palliative care to assist with deciding goals of therapy as medical terminologist prognosis appears poor. Rafael Wilson MD Aug 03, 2017 10:17
--- NOTE | 2017-08-03 11:23 | HHI.HCPN ---
Reason for visit a. To assist with evaluation and management of symptoms including: Debility , dyspnea, encephalopathy b. To assist medical decision maker(s) with: better understanding of current medical conditions; weighing benefits/burdens of medical treatment options; making medical treatment decisions. . Subjective/Interval History Follow up visit for symptom management and clarification of medical treatment goals; no family at bedside. Mrs. Henson is a 76-year-old female with morbid obesity, recurrent HCAP and hypoxic respiratory failure status post tracheostomy on 08/01/2017.. Follow-up chest x-ray on 07/30/2017 with probable mild CHF. Patient tolerated CPAP for approximately 11 hours yesterday this morning Oxygen saturation 100% on 35% FiO2, PEEP 5. Patient arousable to verbal stimuli. Non-verbal; does not follow commands. CBC: WBC 4.5, hemoglobin 7.6, hematocrit 23.6, platelets 99 status post being transfused with 1 unit PRBCs on 07/30/17 for hemoglobin of 7.2 with no evidence of melena or rectal bleeding. CMP showing sodium of 137, potassium 5.5, chloride 107, carbon dioxide 20.8, calcium 9.1, random glucose 141, BUN 67, creatinine 2.01, GFR [address] PEG tube; patient tolerating artificial nutrition via Dobbhoff. Glucerna 1.5 with goal rate of 65 mL per hour per M.D. Total protein: 2.8, albumin 0.5. Physical therapy and occupational therapy following. Patient remains dependent for all mobility, ongoing passive ROM exercises. Goals remain aggressive; patient awaiting placement. However patient was rejected by [facility] because she did not have enough Medicare days left. Will look into vent- capable SNF facilities. It appears there is one in [place]; family is looking into facilities in [place]. . Advance Directives Advance Directive Specifics Documented care wishes: No known document wishes have been completed. . Objective Vital Signs Date Time Temp Pulse Resp B/P (MAP) Pulse Ox O2 Delivery O2 Flow Rate FiO2 08/03/17 10:00 77 25 99 08/03/17 10:00 62 08/03/17 09:45 80 22 100 08/03/17 09:30 61 16 100 08/03/17 09:23 100 35 08/03/17 09:23 35 08/03/17 09:15 61 16 100 08/03/17 09:01 61 16 95/45 (62) 98 08/03/17 09:00 60 17 98 08/03/17 08:45 63 18 100 08/03/17 08:30 64 18 100 08/03/17 08:15 72 18 98 08/03/17 08:01 61 18 103/51 (68) 100 08/03/17 08:00 35 08/03/17 08:00 98.8 77 18 150/68 (95) 100 08/03/17 08:00 62 08/03/17 08:00 60 18 100 08/03/17 06:00 62 08/03/17 04:28 100 35 08/03/17 04:00 35 08/03/17 04:00 98.6 69 18 119/57 (77) 100 08/03/17 04:00 69 08/03/17 02:00 82 08/03/17 00:00 35 08/03/17 00:00 98.5 69 18 105/51 (69) 99 08/03/17 00:00 69 08/02/17 22:00 91 08/02/17 22:00 100 35 08/02/17 20:00 100.5 109 25 151/67 (95) 100 08/02/17 20:00 35 08/02/17 20:00 109 08/02/17 19:33 100 35 08/02/17 18:01 109 29 174/74 (107) 100 08/02/17 18:00 108 08/02/17 17:01 104 27 160/70 (100) 100 08/02/17 16:01 96 23 153/66 (95) 100 08/02/17 16:00 35 08/02/17 16:00 97 08/02/17 14:55 100 35 08/02/17 14:00 93 22 160/66 (97) 98 08/02/17 14:00 93 08/02/17 13:01 93 24 157/63 (94) 97 08/02/17 12:31 98.8 91 23 167/70 (102) 98 08/02/17 12:00 89 08/02/17 12:00 35 Intake & Output 08/03/17 08/03/17 07:00 19:00 Intake Total 511 ml Output Total 650 ml Balance -139 ml Tube Feeding 511 ml Output Urine Total 650 ml # Bowel Movements 1 . Physical Exam CONSTITUTIONAL/GENERAL: This is a morbidly obese, female patient status post tracheostomy. TUBES/LINES/DRAINS: Tracheostomy, Dobbhoff, Female external catheter, PIV SKIN: Generalized pallor. Ecchymosis on bilateral upper extremities. HEAD: Atraumatic. Normocephalic. EYES: No scleral icterus. No injection or drainage. Fundi not examined. ENT: Nose without bleeding or purulent drainage. NECK: Trachea midline. Tracheostomy to CPAP CARDIOVASCULAR: Regular rate and rhythm without murmurs, gallops, or rubs. RESPIRATORY/CHEST: Stautus post tracheostomy; on CPAP. Breath sounds diminished , coarse. GASTROINTESTINAL: Protuberant abdomen with nonhealing ulcer from previous PEG tube site. GENITOURINARY: Without palpable bladder distension. MUSCULOSKELETAL: Extremities without clubbing or cyanosis. Upper and lower extremities significantly edematous, weeping. LYMPHATICS: No palpable cervical or supraclavicular adenopathy. NEUROLOGICAL: Arousable to verbal stimuli. Does not respond to verbal stimuli or follow commands; localizes to pain. PSYCHIATRIC: Unable to assess due to patient's clinical condition . Diagnostic Tests Laboratory Laboratory Tests Test 08/02/17 08:11 White Blood Count 4.5 TH/MM3 (4.0-11.0) Red Blood Count 2.43 MIL/MM3 (4.00-5.30) Hemoglobin 7.6 GM/DL (11.6-15.3) Hematocrit 23.6 % (35.0-46.0) Mean Corpuscular Volume 97.3 FL (80.0-100.0) Mean Corpuscular Hemoglobin 31.2 PG (27.0-34.0) Mean Corpuscular Hemoglobin Concent 32.1 % (32.0-36.0) Red Cell Distribution Width 18.8 % (11.6-17.2) Platelet Count 99 TH/MM3 (150-450) Mean Platelet Volume 9.5 FL (7.0-11.0) CBC Comment AUTO DIFF Differential Total Cells Counted 100 Neutrophils % (Manual) 75 % (16-70) Band Neutrophils % 1 % (0-6) Lymphocytes % 12 % (9-44) Monocytes % 7 % (0-8) Eosinophils % 2 % (0-4) Neutrophils # (Manual) 3.6 TH/MM3 (1.8-7.7) Myelocytes 3 % (0-0) Differential Comment FINAL DIFF MANUAL Platelet Estimate LOW (NORMAL) Platelet Morphology Comment ENLARGED (NORMAL) Blood Urea Nitrogen 67 MG/DL (7-18) Creatinine 2.01 MG/DL (0.50-1.00) Random Glucose 141 MG/DL (74-106) Calcium Level 9.1 MG/DL (8.5-10.1) Sodium Level 137 MEQ/L (136-145) Potassium Level 5.5 MEQ/L (3.5-5.1) Chloride Level 107 MEQ/L (98-107) Carbon Dioxide Level 20.8 MEQ/L (21.0-32.0) Anion Gap 9 MEQ/L (5-15) Estimat Glomerular Filtration Rate 24 ML/MIN (>89) . Result Diagram: 08/02/17 0811 08/02/17 0811 Procedures 07/11/2017: Intubation 07/11/2017: OGT placement 07/18/2017: Extubation 07/19/2017: Reintubation 07/25/2017: Tracheostomy . Assessment and Plan Disease Oriented Problem List: (1) Metabolic encephalopathy (2) Seizure disorder (3) Neuropathy (4) Acute respiratory failure with hypoxia and hypercarbia (5) HCAP (healthcare-associated pneumonia) (6) Hypertension (7) Acute kidney insufficiency (8) Protein calorie malnutrition (9) UTI (urinary tract infection) (10) Hypothyroidism (11) Respiratory distress (12) Pneumonia Symptom Scale: (1) Debility 0-10 Scale: Unable to quantify (2) Dyspnea 0-10 Scale: Unable to quantify (3) Encephalopathy Pertinent Non-Medical Issues Psychosocial: Patient is originally from [place]. She moved to [place] where she met her . Patient has been 2 times. She had 2 children with her first . Her daughter (Manuela) and son (Landon) lives in [place]. Patient has been to her current for approximately 37 years. She worked with Medicare processing claims. Spiritual: Non-practicing Alevism per spouse Legal: Per [place] statutes, in the absence of written advanced directives healthcare proxy decision-making falls to the patient's . Ethical issues impacting care: No known ethical issues impacting care at this time. . Important Contacts Reji Henson, : [phone] Manuela Kelly: [phone] . Prognosis Patient is a morbidly obese female with recurrent healthcare associated pneumonia, hypoxic respiratory failure and non-healing wounds status post tracheostomy placement. She has had multiple hospitalizations with subsequent LTAC/SNF placement since Dec, 2016. Overall prognosis is very poor; patient will likely not survive this medical illness. . Code Status: Full Code Plan * FULL CODE * Decision-making: Patient is currently unable to participate in establishment of medical treatment goals given her clinical condition. It is unknown if she will regain capacity. Per [place] statutes, in the absence of written advanced * Discussed patient's case with Dr. Wilson * Ongoing aggressive goals at this time; patient awaiting placement. However patient was rejected by [facility] and [facility] because she did not have enough Medicare days left. Will look into vent-capable SNF facilities. It appears there is one in [place]; family is looking into facilities in [place]. Spoke with patient spouse later this afternoon; he confirmed that they are trying to locate an appropriate facility in [place]. * Symptom management-dyspnea: Patient with recurrent HCAP and hypoxic respiratory failure. Patient will likely require long-term ventilation and will be difficult to wean. Status post tracheostomy on 07/25/2017. Follow-up chest x -ray on 07/30/2017 with probable mild CHF. Patient tolerated CPAP for approximately 11 hours yesterday this morning Oxygen saturation 100% on 35% FiO2, PEEP 5. . 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 Prior to Dec, 2016 the patient was able to ambulate short distances with a walker. Her states she was otherwise independent for all ADLs. Patient had ongoing hospitalizations and LTAC/SNF recent symptoms 2016. Physical therapy and occupational therapy following. Patient remains dependent for all mobility, ongoing passive ROM exercises. Patient unable to participate secondary to lethargy. Ongoing aggressive goals at this time; patient awaiting placement. However patient was rejected by [facility] because she did not have enough Medicare days left. Will look into vent- capable SNF facilities. It appears there is one in [place]; family is looking into facilities in [place]. * Symptom management-encephalopathy: Neurological status remains poor. CT head on 07/11/17 no acute intracranial abnormalities. Arousable to verbal stimuli today. Non-verbal. Does not follow commands. No spontaneous movement; localizes to pain. * Palliative care will continue to follow this patient throughout her hospitalization to establish trust, assist with symptom management and clarification of medical treatment goals. . Attestation To help prompt me to consider important information that might be impacting today's encounter and assessment, information from prior notes written by myself or my colleagues may have been "brought forward" into today's note. My signature on this note, however, is an attestation that I personally performed the exam, history, and/or decision-making noted today, and, unless otherwise indicated, the interactions with patient, family, and staff as well as the review of records all occurred today. I also attest that the listed assessment and stated plan reflect my best clinical judgment today based on the combination of historical information, prior notes, and today's exam/ interactions. When time spent is documented, it refers only to time spent today by the signer, or if indicated, combined time spent today by collaborating physician/nurse practitioner. . Zo Newell Aug 03, 2017 11:23
[2017-08-03 13:10] LABS: HEMATOCRIT 25.9 % (35.0-46.0); HEMOGLOBIN 8.3 GM/DL (11.6-15.3); MEAN CELL VOLUME 96.4 FL (80.0-100.0); MEAN CORPUSCULAR HEMOGLOBIN 31.1 PG (27.0-34.0); MEAN CORPUSCULAR HGB CONC 32.3 % (32.0-36.0); MEAN PLATELET VOLUME 9.9 FL (7.0-11.0); PLATELET COUNT 115 TH/MM3 (150-450); RED BLOOD COUNT 2.68 MIL/MM3 (4.00-5.30); RED CELL DISTRIBUTION WIDTH 18.9 % (11.6-17.2); WHITE BLOOD COUNT 6.5 TH/MM3 (4.0-11.0)
[2017-08-03 13:30] LABS: BICARBONATE 23.3 MEQ/L (21.0-32.0); CALCIUM 9.6 MG/DL (8.5-10.1); CREATININE 2.15 MG/DL (0.50-1.00)
[2017-08-03] MEDS: AMITRIPTYLINE HCL 10 MG TAB PO SCH (21:08)
[2017-08-04] VITALS (21 sets, daily range): BP systolic 106–150; BP diastolic 46–64; PULSE 57–107; RESP 15–29; TEMP 97.1–98.9; O2SAT 98–100
[2017-08-04] MEDS: HYDROmorphone HCL PF 2 MG/ML VIAL IV PUSH PRN ×2 (02:16→12:51)
[2017-08-04] MEDS: CHLORHEXIDINE GLUCONATE 2 % 1 PACK (2 CLOTHS) TOP SCH (04:00)
[2017-08-04] MEDS: INSULIN NovoLIN REGULAR SUPPLEMENTAL SCALE SQ SCH ×4 (04:20→22:08)
[2017-08-04] MEDS: HEPARIN SODIUM - SQ 10,000 UNITS/ML VIAL SQ SCH ×3 (04:21→21:17)
[2017-08-04] MEDS: LEVOTHYROXINE SODIUM 25 MCG TAB PO SCH (05:08)
[2017-08-04 05:28] LABS: HEMATOCRIT 23.9 % (35.0-46.0); HEMOGLOBIN 7.7 GM/DL (11.6-15.3); MEAN CELL VOLUME 96.5 FL (80.0-100.0); MEAN CORPUSCULAR HGB CONC 32.1 % (32.0-36.0); PLATELET COUNT 111 TH/MM3 (150-450); RED BLOOD COUNT 2.47 MIL/MM3 (4.00-5.30); RED CELL DISTRIBUTION WIDTH 18.7 % (11.6-17.2); WHITE BLOOD COUNT 5.7 TH/MM3 (4.0-11.0)
[2017-08-04 06:01] LABS: CALCIUM 9.5 MG/DL (8.5-10.1); CREATININE 2.14 MG/DL (0.50-1.00)
[2017-08-04] MEDS: LACTULOSE SYRUP 20 GM/30 ML CUP PO SCH ×3 (09:00→18:00)
[2017-08-04] MEDS: DOCUSATE SODIUM 50 MG/SENNA 8.6 MG TAB PO SCH ×2 (09:00→21:17)
[2017-08-04] MEDS: levETIRAcetam 500 MG/5 ML UDC NG SCH ×2 (09:13→21:16)
[2017-08-04] MEDS: SODIUM POLYSTYRENE SULFONATE SUSP 15 GM/60 ML CUP PO SCH ×5 (09:13→18:01)
[2017-08-04] MEDS: MULTIVITAMIN TAB PO SCH (09:13)
[2017-08-04] MEDS: FERROUS SULFATE 300 MG /5ML UDC PO SCH ×2 (09:13→21:16)
[2017-08-04] MEDS: AMIODARONE 200 MG TAB PO SCH ×2 (09:14→21:16)
[2017-08-04] MEDS: busPIRone HCL 10 MG TAB PO SCH ×2 (09:14→21:17)
[2017-08-04] MEDS: ASCORBIC ACID 500 MG TAB PO SCH ×2 (09:14→21:17)
[2017-08-04] MEDS: ZINC SULFATE 220 MG CAP PO SCH (09:14)
[2017-08-04] MEDS: GABAPENTIN 300 MG CAP PO SCH (09:14)
[2017-08-04] MEDS: FOLIC ACID 1 MG TAB PO SCH (09:14)
[2017-08-04] MEDS: SODIUM CHLORIDE 0.9% FLUSH 10 ML FLUSH IV FLUSH SCH ×2 (09:15→21:18)
[2017-08-04] MEDS: SODIUM CHLORIDE 0.9% FLUSH 10 ML FLUSH IV FLUSH PRN (09:15)
[2017-08-04] MEDS: COLLAGENASE OINT 30 GM TUBE TOPICAL SCH (09:16)
[2017-08-04] MEDS: FAMOTIDINE 40 MG/5 ML LIQ 50 ML BTL NG SCH ×2 (09:16→21:17)
[2017-08-04] MEDS: ARTIFICIAL TEARS OPTH SOLN 15 ML BTL EACH EYE SCH ×3 (09:17→18:02)
--- NOTE | 2017-08-04 09:58 | PD.CONS ---
HPI Service Nephrology Consult Requested By Reason for Consult RADHA, hyperkalemia Primary Care Physician [facility] History of Present Illness This patient was admitted on the of this month. She was brought to the ER with lethargy, was hypoglycemic, in respiratory distress. Intubated in the ER. Since then she has been on the ventilator. Had tracheostomy placed. Creatinine was 0.99 on the . It was 1.6 on the . Today it is 2.14. Serum potassium has been high for several days, today it is 6.2. Kayexalate has been ordered. Patient is morbidly obese. On TF. May have suffered hypoxic encephalopathy. Past Family Social History Allergies: Coded Allergies: FRANCK Inhibitors (Verified Allergy, Unknown, 07/11/17) Mvfjiva-Kvw-Lwc Reductase Inhibitor (Verified Allergy, Unknown, 07/11/17) Past Medical History Morbid obesity Hypertension Diabetes mellitus Hypothyroidism. Seizure Reported Medications Zinc Sulfate 220 Mg (50 Mg Zinc) Cap 220 Mg PO DAILY Ascorbic Acid 500 Mg Tab 500 Mg PO BID Tramadol (Tramadol HCl) 50 Mg Tab 50 Mg PO Q6H PRN Spironolactone 25 Mg Tab 12.5 Mg PO HS Santyl Topical (Collagenase) 250 Unit/Gm Oint 1 Applic TOPICAL DAILY Probiotic (Lactobacillus Acidophilus) 10 Billion Cell Cap 1 Cap PO TIDAC Prednisone 10 Mg Tab 10 Mg PO DAILY Multiple Vitamin 1 Tab 1 Tab PO DAILY Modafinil 200 Mg Tab 200 Mg PO DAILY Metoprolol Tartrate 25 Mg Tab 25 Mg PO BID Levothyroxine (Levothyroxine Sodium) 25 Mcg Tab 25 Mcg PO DAILY Levetiracetam 500 Mg Tab 500 Mg PO BID Combivent Respimat Inh (Ipratropium-Albuterol Inh) 20-100 [facility]/Act Aero 1 Puff INH QID Levemir Inj (Insulin Detemir) 1,000 unit/ 10 ML Vial 25 Units SQ BID Do not mix with any other Insulin. Humalog Inj (Insulin Human Lispro) 1,000 Unit/10 Ml Vial 3-12 Units SQ ACHS Max dose at bedtime:( )units; sugars < 70,(0)units; sugars 150-199,(2)units; sugars 200-249,(4)units; sugars 250-299,(7)units; sugars 300-349,(10)units; sugars more than 349,(12)units. Guaifenesin DM Liq (Guaifenesin-Dextromethorphan Liq) 10-100 Mg/5 Ml Liq 7.5 Ml PO Q6HR PRN Glucagon Emergency Inj Kit (Glucagon (Rdna) Inj Kit) 1 Mg Kit 1 Mg IM ONCE PRN Gabapentin 300 Mg Cap 300 Mg PO TID Furosemide 40 Mg Tab 40 Mg PO DAILY Folic Acid 0.4 Mg Tab 1 Mg PO DAILY Ferrous Sulfate 325 Mg (65 Mg Iron) Tablet 325 Mg PO DAILY Famotidine 20 Mg Tab 20 Mg PO BID Dulcolax Supp (Bisacodyl) 10 Mg Supp 10 Mg RECTAL DAILY PRN Docusate Sodium 100 Mg Cap 100 Mg PO BID PRN Citroma Liq (Magnesium Citrate) 300 Ml Liq 296 Ml PO DIRECTED Buspirone (Buspirone HCl) 10 Mg Tab 10 Mg PO BID Amitriptyline (Amitriptyline HCl) 10 Mg Tab 10 Mg PO HS Amiodarone (Amiodarone HCl) 200 Mg Tab 200 Mg PO BID Alprazolam 0.5 Mg Tab 0.5 Mg PO Q6H PRN Tylenol (Acetaminophen) 325 Mg Tab 650 Mg PO Q4H PRN Tylenol (Acetaminophen) 325 Mg Tab 650 Mg PO Q4H PRN Active Ordered Medications Current Medications Medications (Trade) Dose Ordered Sig/Kerri Route Start Time Stop Time Status Last Admin (NS Flush) 2 ml UNSCH PRN IV FLUSH 07/11/17 19:15 08/04/17 09:15 (NS Flush) 2 ml BID IV FLUSH 07/11/17 21:00 08/04/17 09:15 (Tylenol) 650 mg Q6H PRN PO 07/11/17 19:15 08/02/17 20:41 (Tears Naturale Opth Soln) 1 drop TID EACH EYE 07/12/17 09:00 08/04/17 09:17 (Zofran Inj) 4 mg Q6H PRN IV PUSH 07/11/17 19:15 (Heparin Inj) 5,000 units Q8H SQ 07/11/17 21:00 Future hold 08/04/17 04:21 Miscellaneous Information 1 Q361D XX 07/11/17 19:15 07/11/17 19:15 (Chlorhexidine 2% Cloth) 3 pack Taper DAILY@04 TOP 07/12/17 04:00 07/08/18 03:59 08/04/17 04:00 (Chlorhexidine 2% Cloth) 3 pack UNSCH PRN TOP 07/11/17 19:15 (Mare-Colace) 1 tab BID PO 07/11/17 21:00 08/03/17 21:08 (Milk Of Magnesia Liq) 30 ml Q12H PRN PO 07/11/17 19:15 (Senokot) 17.2 mg Q12H PRN PO 07/11/17 19:15 (Dulcolax Supp) 10 mg DAILY PRN RECTAL 07/11/17 19:15 (Xanax) 0.5 mg Q6H PRN PO 07/11/17 20:15 07/31/17 07:58 (Cordarone) 200 mg BID PO 07/11/17 21:00 08/04/17 09:14 (Elavil) 10 mg HS PO 07/11/17 21:00 08/03/17 21:08 (Vitamin C) 500 mg BID PO 07/11/17 21:00 08/04/17 09:14 (Buspar) 10 mg BID PO 07/11/17 21:00 08/04/17 09:14 (Santyl Oint) 1 applic DAILY TOPICAL 07/12/17 09:00 08/04/17 09:16 (Folate) 1 mg DAILY PO 07/12/17 09:00 08/04/17 09:14 (Synthroid) 25 mcg DAILY@0600 PO 07/12/17 06:00 08/04/17 05:08 (Zinc Sulfate) 220 mg DAILY PO 07/12/17 09:00 08/04/17 09:14 (Theragran) 1 tab DAILY PO 07/12/17 09:00 08/04/17 09:13 (Keppra Liq) 500 mg Q12HR NG 07/12/17 13:00 08/04/17 09:13 (Ferrous Sulfate Liq) 300 mg BID PO 07/12/17 13:00 08/04/17 09:13 (Neurontin) 600 mg DAILY PO 07/13/17 09:00 08/04/17 09:14 (Lactulose Liq) 30 ml TID PO 07/14/17 13:00 08/03/17 18:52 (Apresoline Inj) 10 mg Q6H PRN IV PUSH 07/18/17 09:00 08/02/17 18:52 (Duoneb Neb) 1 ampule Q2HR NEB PRN NEB 07/18/17 14:45 07/19/17 00:33 (D50w (Vial) Inj) 50 ml UNSCH PRN IV PUSH 07/19/17 08:30 (Glucagon Inj) 1 mg UNSCH PRN OTHER 07/19/17 08:30 (NovoLIN R SUPPLEMENTAL SCALE) 1 Q6H SQ 07/19/17 10:00 08/04/17 04:20 (Dilaudid Pf Inj) 0.5 mg Q4H PRN IV PUSH 07/25/17 17:00 08/04/17 02:16 (Reglan Inj) 5 mg Q8H PRN IV PUSH 07/27/17 08:45 (Roxicodone Intensol Liq) 5 mg Q4H PRN PO 08/02/17 10:00 (Pepcid Liq) 20 mg BID NG 08/02/17 21:00 08/04/17 09:16 (Kayexalate Liq) 30 gm Q2HR PO 08/04/17 08:45 08/04/17 16:30 08/04/17 09:13 Family History brother apparently has diabetes and hypertension Social History unable to obtain Physical Exam Vital Signs Vital Signs Date Time Temp Pulse Resp B/P (MAP) Pulse Ox O2 Delivery O2 Flow Rate FiO2 08/04/17 09:41 98 35 08/04/17 09:41 35 08/04/17 06:00 57 08/04/17 04:43 99 Ventilator 08/04/17 04:39 99 35 08/04/17 04:00 73 08/04/17 04:00 35 08/04/17 04:00 98.9 73 15 141/60 (87) 100 08/04/17 02:00 35 08/04/17 02:00 107 08/04/17 00:28 100 35 08/04/17 00:00 98.1 96 25 148/64 (92) 100 08/04/17 00:00 96 08/04/17 00:00 35 08/03/17 22:00 92 08/03/17 20:56 100 Ventilator 08/03/17 20:50 100 35 08/03/17 20:00 87 08/03/17 20:00 97.8 87 19 166/70 (102) 99 08/03/17 20:00 35 08/03/17 16:41 100 35 08/03/17 16:00 62 08/03/17 16:00 35 08/03/17 16:00 84 22 99 08/03/17 14:00 62 08/03/17 12:00 35 08/03/17 12:00 62 08/03/17 12:00 77 25 99 08/03/17 11:48 100 35 08/03/17 10:00 77 25 99 08/03/17 10:00 62 Laboratory Laboratory Tests Test 08/03/17 11:50 08/04/17 03:51 08/04/17 03:57 White Blood Count 6.5 5.7 Red Blood Count 2.68 2.47 Hemoglobin 8.3 7.7 Hematocrit 25.9 23.9 Mean Corpuscular Volume 96.4 96.5 Mean Corpuscular Hemoglobin 31.1 31.0 Mean Corpuscular Hemoglobin Concent 32.3 32.1 Red Cell Distribution Width 18.9 18.7 Platelet Count 115 111 Mean Platelet Volume 9.9 10.0 Blood Urea Nitrogen 76 82 Creatinine 2.15 2.14 Random Glucose 161 178 Calcium Level 9.6 9.5 Sodium Level 138 141 Potassium Level 5.6 6.2 Chloride Level 107 110 Carbon Dioxide Level 23.3 27.0 Anion Gap 8 4 Estimat Glomerular Filtration Rate 22 22 Date/Time Source Procedure Growth Status 07/20/17 14:00 Blood Peripheral Aerobic Blood Culture - Final NO GROWTH IN 5 DAYS Complete 07/20/17 14:00 Blood Peripheral Anaerobic Blood Culture - Final NO GROWTH IN 5 DAYS Complete 07/20/17 10:10 Sputum Endotracheal Gram Stain - Final Complete 07/20/17 10:10 Sputum Culture - Final Enterobacter Cloacae Complete 07/18/17 05:00 Urine Catheterized Urine Urine Culture - Final Kirsten Albicans Complete Result Diagram: 08/04/17 0351 08/04/17 0357 Assessment and Plan Problem List: (1) Hyperkalemia ICD Codes: E87.5 - Hyperkalemia Plan: change TF to Nepro. Obtain ABG: rule out CO2 retention as this would cause respiratory acidosis and extracellular shift of potassium. Also has developed RADHA. Treat with insulin and dextrose. Monitor. Hopefully dialysis can be avoided. Patient had received frequent potassium supplements, perhaps when physicians were trying to correct hypophosphatemia. (2) Acute kidney insufficiency ICD Codes: N28.9 - Disorder of kidney and ureter, unspecified Plan: could be due to allergic interstitial nephritis. Monitor urine output. Currently appears to be non oliguric. (3) Acute respiratory failure with hypoxia and hypercarbia ICD Codes: J96.01 - Acute respiratory failure with hypoxia; J96.02 - Acute respiratory failure with hypercapnia Plan: Vent support. Obtain ABG (4) Hypertension ICD Codes: I10 - Essential (primary) hypertension Plan: BP is acceptable. BP has been labile however, sometimes low, could have contributed to RADHA (5) Encephalopathy ICD Codes: G93.40 - Encephalopathy, unspecified Plan: Prognosis appears to be poor. Assessment and Plan Thanks for the consult. Kendrick Liriano MD Aug 04, 2017 09:58
[2017-08-04] MEDS ORDERED: FUROSEMIDE 40 MG/4 ML VIAL IV PUSH ONE (10:30)
--- NOTE | 2017-08-04 13:52 | HHI.CCPN ---
Subjective Remarks/Hospital Course 07/11: 77-year-old morbidly obese female patient sent in from senior living, due to increased lethargy for the last 2 days, hypoglycemia early in the day with sugars of 44, given glucagon, chest x-ray showing a pneumonia according to facility staff, EMS noted the patient was fairly disoriented, GCS 6, and started bag valve masking her because of respiratory distress and hypoxia with sats in the 87% range despite oxygenation. Patient was brought in bag-valve- mask in progress and was immediately intubated in the emergency department by ED attending. 07/12: Sedated, orally intubated on mechanical ventilation. 07/13 Patient is sedated with Fentanyl and intubated. Afebrile. 07/14 No events overnight, Sedated with Fentanyl and Versed. Afebrile. Failed CPAP trials yesterday. 07/15 No events overnight. Sedated and intubated. ABG on CPAP yesterday showed resp acidosis with PH 7.22 and CO2: 58 07/16 Patient remains sedated and intubated 07/17. No events overnight. Remains sedated and intubated 07/18 Patient remains intubated off sedation. Afebrile. 07/19 Patient s/p extubation yesterday on BIPAP overnight. Awake. ABG last night showed resp acidosis with PH: 7.24, pCO2: 66 07/20 Patient was reintubated yesterday for resp failure. Sedated and intubated. Afebrile. 07/21: new HCAP with GNRs in sputum. persistent respiratory failure. likely will require long-term ventilation and slow wean. will consult general surgery for re-do trach and gastric access. 07/22: no changes. no improvements. gen surgery planning PEG/Trach next week. 07/23: sputum growing enterobacter; now on Cefepime per ID. neuro exam still stable, but fails weaning trials quickly. 07/24: no changes. still failing cpap and weaning trials. CT abd/pelvis done at gen surg request without overt abscess at prior peg site. 07/25: s/p trach today. doing well. still failing cpap. approved for LTAC. surgical contra-indication to PEG placement with induration at old PEG site: will use DHT for enteral access and tube feeds. ID giving final recs for duration of therapy. stable for discharge to LTAC when bed available. 07/26 No events overnight. Patient was rejected by [facility] this morning per manager rn case. Afebrile. 07/27 Patient is sedated with Diprivan and intubated. Afebrile. 07/28 No events overnight. Off sedation. On ventilator via trach. 07/29 No events overnight. Tolerated CPAP for most f day yesterday. Afebrile. 07/30: Remains on mechanical ventilation via tracheostomy. Drowsy/ encephalopathic 07/31: Remains encephalopathic, on mechanical ventilation via tracheostomy. Received 1 unit PRBCs yesterday. No melena or rectal bleeding noted. 08/01: Remains encephalopathic, on mechanical ventilation via tracheostomy. Daily C Pap trials ongoing. Neurologic status remains poor. 08/02: no improvements, no changes. does not meet inpatient criteria, but funding problems prevent appropriate placement. overall prognosis very poor. unlikely that she will survive this medical illness. 08/03: continues without significant changes or improvements. 08/04: Remains encephalopathic, on mechanical ventilation via tracheostomy. Potassium elevated. Ordered Kayexalate. Objective Vital Signs Date Time Temp Pulse Resp B/P (MAP) Pulse Ox O2 Delivery O2 Flow Rate FiO2 08/04/17 11:44 99 35 08/04/17 10:00 78 08/04/17 08:00 98.6 18 106/46 (66) 08/04/17 04:43 Ventilator Intake and Output 08/04/17 08/04/17 08/05/17 08:00 16:00 00:00 Intake Total 1372 ml Output Total 1450 ml Balance -78 ml Result Diagram: 08/04/17 0351 08/04/17 0357 Other Results Laboratory Tests Test 08/04/17 10:28 Blood Gas Puncture Site RT RADIAL Blood Gas Patient Temperature 98.6 Blood Gas HCO3 25 mmol/L (22-26) Blood Gas Base Excess -0.5 mmol/L (-2-2) Blood Gas Oxygen Saturation 95 % (90-100) Arterial Blood pH 7.33 (7.380-7.420) Arterial Blood Partial Pressure CO2 48 mmHg (38-42) Arterial Blood Partial Pressure O2 101 mmHg (61-120) Arterial Blood Oxygen Content 10.9 Vol % (12.0-20.0) Arterial Blood Carboxyhemoglobin 1.7 % (0-4) Arterial Blood Methemoglobin 1.2 % (0-2) Blood Gas Hemoglobin 8.1 G/DL (12.0-16.0) Oxygen Delivery Device VENTILATOR Blood Gas Ventilator Setting EPAP 5 IPAP 15 Blood Gas Inspired Oxygen 35 % Imaging Last Impressions Abdomen X-Ray 07/25/17 0000 Signed Impressions: Service Date/Time: Tuesday, July 25, 2017 17:34 - CONCLUSION: Dobbhoff catheter tip in the distal stomach. Jasen Delvalle MD Abdomen/Pelvis CT 07/24/17 0000 Signed Impressions: Service Date/Time: Monday, July 24, 2017 14:57 - CONCLUSION: Pleural effusion and atelectasis right greater than left. Bowel gas pattern is unremarkable. No evidence of an abscess. Some induration anterior abdominal wall with some possible early fluid collection inferiorly within the lower pannus. Jame Preciado MD Chest X-Ray 07/21/17 0600 Signed Impressions: Service Date/Time: Friday, July 21, 2017 03:13 - CONCLUSION: Nasogastric tube now in place with the tip below the [id number] of the radiograph. No significant interval change in bilateral pulmonary opacity. Differential diagnosis includes pulmonary edema and infection. Angelito Lovett MD Head CT 07/11/17 1827 Signed Impressions: Service Date/Time: Tuesday, July 11, 2017 21:23 - CONCLUSION: No acute intracranial abnormality Jaden Clark MD Objective Remarks GENERAL: Morbidly obese elderly female s/p trach SKIN: Warm and dry. HEAD: Normocephalic. EYES: No scleral icterus. No injection or drainage. NECK: trachea midline. trach in place CARDIOVASCULAR: Regular rate and rhythm. RESPIRATORY: on mechanical ventilation via tracheostomy, air entry decreased bilaterally at bases, scattered rhonchi. GASTROINTESTINAL: Abdomen soft, non-tender, nondistended. left non-healing ulcer area from prior PEG site. MUSCULOSKELETAL: No cyanosis, or edema. Neuro: Encephalopathic, drowsy, not following commands, on mechanical ventilation via tracheostomy A/P Assessment and Plan Assessment: 77yF with morbid obesity and recurrent healthcare associated pneumonia and hypoxic respiratory failure. s/p trach 07/25. contra-indicated for PEG given recent peg site induration. will use DHT for long-term enteral nutrition. no placement plan at this time. Plan Neuro: metabolic encephalopathy Seizure disorder Neuropathy Off sedation. Monitor neuro status. On Keppra 500mg Q12 oxycodone 5mg po q4h prn for pain. Pulm: Acute hypoxic and hypercarbic Respiratory failure Recurrent healthcare associated pneumonia Reintubated 07/19 Continue with vent support keep sat >92% Bronchodilators, ICU vent bundle. SBT daily as lisa s/p trach 07/[address] Espino Pul toilet, [facility] care. failing daily cpap trials for weakness. CV: History of hypertension Monitor HR and BP keep MAP>65mmHg Amiodarone 200mg BID 2d echo 07/20: normal biventricular function, EF 60%, RVSP 47 mmHg. : Acute kidney injury Free water deficit Monitor renal function, electrolytes replacement as needed. Ordered Kayexalate for hyperkalemia. Nephrology consulted in view of rising BUN creatinine. GI: Morbid Obesity Acute protein calorie malnutrition- moderate On tube feeds- Glucerna 1.5with goal rate 65ml/hr, On roly Colace, Lactulose for bowel regimen. On Reglan 5mg IV Q8 PRN ICU electrolyte protocol ID: Recurrent HCAP pneumonia- resolved. Urinary tract infection- resolved. off abx. monitor clinically.. Urine cx: 07/11: Kleb ESBL, Citrobacter. Repeat urine cx 07/18 - Kirsten Albicans sputum cx: Enterobacter ID following. Heme: Anemia secondary to chronic disease Monitor CBC, on Ferrous sulfate and Folic acid Hep PLT ab -negative 1 unit PRBCs ordered on 07/30 for hemoglobin 7.2, no evidence of melena or rectal bleeding. Endo: Hypothyroidism Hyperglycemia of Critical illness SSI medium scale for glycemic control GI prophylaxis- on Pepcid DVT prophylaxis- Heparin SQ Dispo: Awaiting placement. Patient was rejected by [facility] for not enough medicare days left. will look into vent-capable SNF facilities. does not meet inpatient criteria. consulted palliative care to assist with deciding goals of therapy as [facility] prognosis appears poor. Gerard Zepeda MD Aug 04, 2017 13:52
[2017-08-04] MEDS: AMITRIPTYLINE HCL 10 MG TAB PO SCH (21:16)
--- NOTE | 2017-08-04 23:28 | RADRPT ---
EXAM DATE/TIME: 08/04/2017 22:47 [place] COMPARISON: No previous studies available for comparison. INDICATIONS : Dobhoff placement. MEDICAL HISTORY : Hypertension. Diabetes mellitus type II. SURGICAL HISTORY : Cholecystectomy. Appendectomy. ENCOUNTER: Initial ACUITY: 1 day PAIN SCORE: Non-responsive. LOCATION: abdomen FINDINGS: Examination of the abdomen demonstrates a normal bowel gas pattern. No free air is identified. No o rganomegaly is evident. Osseous structures are intact. Dobbhoff feeding tube is in the mid gastric body. CONCLUSION: Benign-appearing abdomen. Dobbhoff feeding tube tip in the mid stomach. Charlie Norris MD on August 04, 2017 at 23:26 Board Certified Radiologist. This report was verified electronically.
[2017-08-05] VITALS (18 sets, daily range): BP systolic 119–167; BP diastolic 55–71; PULSE 82–97; RESP 22–28; TEMP 97.6–98.3; O2SAT 97–100
[2017-08-05] MEDS: INSULIN NovoLIN REGULAR SUPPLEMENTAL SCALE SQ SCH ×4 (04:00→23:00)
[2017-08-05] MEDS: CHLORHEXIDINE GLUCONATE 2 % 1 PACK (2 CLOTHS) TOP SCH (04:00)
[2017-08-05] MEDS: HEPARIN SODIUM - SQ 10,000 UNITS/ML VIAL SQ SCH ×3 (05:00→21:04)
[2017-08-05 05:18] LABS: HEMATOCRIT 23.7 % (35.0-46.0); HEMOGLOBIN 7.8 GM/DL (11.6-15.3); MEAN CELL VOLUME 96.3 FL (80.0-100.0); MEAN CORPUSCULAR HEMOGLOBIN 31.7 PG (27.0-34.0); PLATELET COUNT 119 TH/MM3 (150-450); RED BLOOD COUNT 2.46 MIL/MM3 (4.00-5.30); RED CELL DISTRIBUTION WIDTH 17.6 % (11.6-17.2); WHITE BLOOD COUNT 4.3 TH/MM3 (4.0-11.0)
[2017-08-05 05:36] LABS: BICARBONATE 27.7 MEQ/L (21.0-32.0); CALCIUM 9.4 MG/DL (8.5-10.1); CREATININE 2.04 MG/DL (0.50-1.00)
[2017-08-05] MEDS: LEVOTHYROXINE SODIUM 25 MCG TAB PO SCH (06:45)
[2017-08-05] MEDS: ASCORBIC ACID 500 MG TAB PO SCH ×2 (08:52→21:03)
[2017-08-05] MEDS: FERROUS SULFATE 300 MG /5ML UDC PO SCH ×2 (08:52→21:03)
[2017-08-05] MEDS: FOLIC ACID 1 MG TAB PO SCH (08:52)
[2017-08-05] MEDS: AMIODARONE 200 MG TAB PO SCH ×2 (08:52→21:03)
[2017-08-05] MEDS: levETIRAcetam 500 MG/5 ML UDC NG SCH ×2 (08:52→21:03)
[2017-08-05] MEDS: busPIRone HCL 10 MG TAB PO SCH ×2 (08:52→21:03)
[2017-08-05] MEDS: LACTULOSE SYRUP 20 GM/30 ML CUP PO SCH ×3 (08:52→16:28)
[2017-08-05] MEDS: MULTIVITAMIN TAB PO SCH (08:52)
[2017-08-05] MEDS: GABAPENTIN 300 MG CAP PO SCH (08:52)
[2017-08-05] MEDS: DOCUSATE SODIUM 50 MG/SENNA 8.6 MG TAB PO SCH ×2 (08:52→21:00)
[2017-08-05] MEDS: ZINC SULFATE 220 MG CAP PO SCH (08:52)
[2017-08-05] MEDS: SODIUM CHLORIDE 0.9% FLUSH 10 ML FLUSH IV FLUSH SCH ×2 (08:53→21:03)
[2017-08-05] MEDS: ARTIFICIAL TEARS OPTH SOLN 15 ML BTL EACH EYE SCH ×3 (08:53→16:29)
[2017-08-05] MEDS: FAMOTIDINE 40 MG/5 ML LIQ 50 ML BTL NG SCH ×2 (08:53→21:12)
[2017-08-05] MEDS: COLLAGENASE OINT 30 GM TUBE TOPICAL SCH (08:54)
--- NOTE | 2017-08-05 09:34 | HHI.NPPN ---
Subjective Interval History Non oliguric. Hyperkalemia, and GFR have improved. Objective Data Data Vital Signs Date Time Temp Pulse Resp B/P (MAP) Pulse Ox O2 Delivery O2 Flow Rate FiO2 08/05/17 08:56 97 35 08/05/17 06:00 89 08/05/17 05:00 99 35 08/05/17 04:00 83 08/05/17 04:00 98.3 83 23 155/65 (95) 100 08/05/17 04:00 35 08/05/17 02:00 82 08/05/17 00:00 82 08/05/17 00:00 98.0 82 24 152/66 (94) 100 08/05/17 00:00 35 08/04/17 23:45 100 35 08/04/17 22:00 76 08/04/17 20:33 100 Ventilator 08/04/17 20:30 100 35 08/04/17 20:00 74 08/04/17 20:00 97.9 74 29 130/60 (83) 100 08/04/17 20:00 35 08/04/17 18:00 75 08/04/17 16:49 100 35 08/04/17 16:00 75 08/04/17 16:00 35 08/04/17 16:00 97.1 73 27 118/56 (76) 100 08/04/17 14:00 68 08/04/17 12:00 81 08/04/17 12:00 35 08/04/17 12:00 97.8 81 23 150/64 (92) 99 08/04/17 11:44 99 35 08/04/17 10:00 78 08/04/17 09:41 98 35 08/04/17 09:41 35 -: 08/05/17 0430 08/05/17 0430 Physical Exam General Appearance Remarks unresponsive. Throat Throat Exam: Oral Mucosa [place] & Moist Neck Neck Exam: Neck Supple Neck Remarks tracheostomy Pulmonary Resp Exam: Clear Bilaterally Cardiology CV Exam: Regular, Normal Sinus Rhythm Gastrointestinal/Abdomen GI Exam: Soft, Non-Tender Extremeties Extremities Exam: Moderate Edema Assessment/Plan Problem List: (1) Hyperkalemia ICD Codes: E87.5 - Hyperkalemia Plan: Improved. ABG revealed only mildly elevated CO2 and mild respiratory acidosis. TF changed to Nepro, continue. Another dose of Lasix today. (2) Acute kidney insufficiency ICD Codes: N28.9 - Disorder of kidney and ureter, unspecified Plan: could be due to allergic interstitial nephritis. Monitor urine output. Currently appears to be non oliguric. (3) Acute respiratory failure with hypoxia and hypercarbia ICD Codes: J96.01 - Acute respiratory failure with hypoxia; J96.02 - Acute respiratory failure with hypercapnia Plan: Vent support. (4) Hypertension ICD Codes: I10 - Essential (primary) hypertension Plan: BP is acceptable. BP has been labile however, sometimes low, could have contributed to RADHA (5) Encephalopathy ICD Codes: G93.40 - Encephalopathy, unspecified Plan: Prognosis appears to be poor. Kendrick Liriano MD Aug 05, 2017 09:34
[2017-08-05] MEDS ORDERED: FUROSEMIDE 40 MG/4 ML VIAL IV PUSH ONE (09:45)
--- NOTE | 2017-08-05 13:07 | HHI.CCPN ---
Subjective Remarks/Hospital Course 07/11: 77-year-old morbidly obese female patient sent in from [facility], due to increased lethargy for the last 2 days, hypoglycemia early in the day with sugars of 44, given glucagon, chest x-ray showing a pneumonia according to facility staff, EMS noted the patient was fairly disoriented, GCS 6, and started bag valve masking her because of respiratory distress and hypoxia with sats in the 87% range despite oxygenation. Patient was brought in bag-valve- mask in progress and was immediately intubated in the emergency department by ED attending. 07/12: Sedated, orally intubated on mechanical ventilation. 07/13 Patient is sedated with Fentanyl and intubated. Afebrile. 07/14 No events overnight, Sedated with Fentanyl and Versed. Afebrile. Failed CPAP trials yesterday. 07/15 No events overnight. Sedated and intubated. ABG on CPAP yesterday showed resp acidosis with PH 7.22 and CO2: 58 07/16 Patient remains sedated and intubated 07/17. No events overnight. Remains sedated and intubated 07/18 Patient remains intubated off sedation. Afebrile. 07/19 Patient s/p extubation yesterday on BIPAP overnight. Awake. ABG last night showed resp acidosis with PH: 7.24, pCO2: 66 07/20 Patient was reintubated yesterday for resp failure. Sedated and intubated. Afebrile. 07/21: new HCAP with GNRs in sputum. persistent respiratory failure. likely will require long-term ventilation and slow wean. will consult general surgery for re-do trach and gastric access. 07/22: no changes. no improvements. gen surgery planning PEG/Trach next week. 07/23: sputum growing enterobacter; now on Cefepime per ID. neuro exam still stable, but fails weaning trials quickly. 07/24: no changes. still failing cpap and weaning trials. CT abd/pelvis done at gen surg request without overt abscess at prior peg site. 07/25: s/p trach today. doing well. still failing cpap. approved for LTAC. surgical contra-indication to PEG placement with induration at old PEG site: will use DHT for enteral access and tube feeds. ID giving final recs for duration of therapy. stable for discharge to LTAC when bed available. 07/26 No events overnight. Patient was rejected by [facility] this morning per case loader operator. Afebrile. 07/27 Patient is sedated with Diprivan and intubated. Afebrile. 07/28 No events overnight. Off sedation. On ventilator via trach. 07/29 No events overnight. Tolerated CPAP for most f day yesterday. Afebrile. 07/30: Remains on mechanical ventilation via tracheostomy. Drowsy/ encephalopathic 07/31: Remains encephalopathic, on mechanical ventilation via tracheostomy. Received 1 unit PRBCs yesterday. No melena or rectal bleeding noted. 08/01: Remains encephalopathic, on mechanical ventilation via tracheostomy. Daily C Pap trials ongoing. Neurologic status remains poor. 08/02: no improvements, no changes. does not meet inpatient criteria, but funding problems prevent appropriate placement. overall prognosis very poor. unlikely that she will survive this medical illness. 08/03: continues without significant changes or improvements. 08/04: Remains encephalopathic, on mechanical ventilation via tracheostomy. Potassium elevated. Ordered Kayexalate. 08/05: Remains encephalopathic, on mechanical ventilation via tracheostomy. Potassium levels coming down. Objective Vital Signs Date Time Temp Pulse Resp B/P (MAP) Pulse Ox O2 Delivery O2 Flow Rate FiO2 08/05/17 12:00 98.0 85 28 119/55 (76) 99 08/05/17 11:50 35 08/04/17 20:33 Ventilator Intake and Output 08/05/17 08/05/17 08/06/17 08:00 16:00 00:00 Intake Total 68 ml Output Total 1500 ml Balance -1432 ml Result Diagram: 08/05/17 0430 08/05/17 0430 Imaging Last Impressions Abdomen X-Ray 07/25/17 0000 Signed Impressions: Service Date/Time: Tuesday, July 25, 2017 17:34 - CONCLUSION: Dobbhoff catheter tip in the distal stomach. Jasen Delvalle MD Abdomen/Pelvis CT 07/24/17 0000 Signed Impressions: Service Date/Time: Monday, July 24, 2017 14:57 - CONCLUSION: Pleural effusion and atelectasis right greater than left. Bowel gas pattern is unremarkable. No evidence of an abscess. Some induration anterior abdominal wall with some possible early fluid collection inferiorly within the lower pannus. Jame A. Sevigny, MD Chest X-Ray 07/21/17 0600 Signed Impressions: Service Date/Time: Friday, July 21, 2017 03:13 - CONCLUSION: Nasogastric tube now in place with the tip below the [id number] of the radiograph. No significant interval change in bilateral pulmonary opacity. Differential diagnosis includes pulmonary edema and infection. Angelito Lovett MD Head CT 07/11/17 1827 Signed Impressions: Service Date/Time: Tuesday, July 11, 2017 21:23 - CONCLUSION: No acute intracranial abnormality Jaden Clark MD Objective Remarks GENERAL: Morbidly obese elderly female s/p trach SKIN: Warm and dry. HEAD: Normocephalic. EYES: No scleral icterus. No injection or drainage. NECK: trachea midline. trach in place CARDIOVASCULAR: Regular rate and rhythm. RESPIRATORY: on mechanical ventilation via tracheostomy, air entry decreased bilaterally at bases, scattered rhonchi. GASTROINTESTINAL: Abdomen soft, non-tender, nondistended. left non-healing ulcer area from prior PEG site. MUSCULOSKELETAL: No cyanosis, or edema. Neuro: Encephalopathic, drowsy, not following commands, on mechanical ventilation via tracheostomy A/P Assessment and Plan Assessment: 77yF with morbid obesity and recurrent healthcare associated pneumonia and hypoxic respiratory failure. s/p trach 07/25. contra-indicated for PEG given recent peg site induration. will use DHT for long-term enteral nutrition. no placement plan at this time. Plan Neuro: metabolic encephalopathy Seizure disorder Neuropathy Off sedation. Monitor neuro status. On Keppra 500mg Q12 oxycodone 5mg po q4h prn for pain. Pulm: Acute hypoxic and hypercarbic Respiratory failure Recurrent healthcare associated pneumonia Reintubated 07/19 Continue with vent support keep sat >92% Bronchodilators, ICU vent bundle. SBT daily as lisa s/p trach 07[facility] [facility] failing daily cpap trials for weakness. CV: History of hypertension Monitor HR and BP keep MAP>65mmHg Amiodarone 200mg BID 2d echo 07/20: normal biventricular function, EF 60%, RVSP 47 mmHg. : Acute kidney injury Free water deficit Monitor renal function, electrolytes replacement as needed. Ordered Kayexalate for hyperkalemia. Nephrology consulted in view of rising BUN creatinine. GI: Morbid Obesity Acute protein calorie malnutrition- moderate On tube feeds- Glucerna 1.5with goal rate 65ml/hr, On roly Colace, Lactulose for bowel regimen. On Reglan 5mg IV Q8 PRN ICU electrolyte protocol ID: Recurrent HCAP pneumonia- resolved. Urinary tract infection- resolved. off abx. monitor clinically.. Urine cx: 07/11: Kleb ESBL, Citrobacter. Repeat urine cx 07/18 - Kirsten Albicans sputum cx: Enterobacter ID following. Heme: Anemia secondary to chronic disease Monitor CBC, on Ferrous sulfate and Folic acid Hep PLT ab -negative 1 unit PRBCs ordered on 07/30 for hemoglobin 7.2, no evidence of melena or rectal bleeding. Endo: Hypothyroidism Hyperglycemia of Critical illness SSI medium scale for glycemic control GI prophylaxis- on Pepcid DVT prophylaxis- Heparin SQ Dispo: Awaiting placement. Patient was rejected by [facility] for not enough medicare days left. will look into vent-capable SNF facilities. does not meet inpatient criteria. consulted palliative care to assist with deciding goals of therapy as half-way prognosis appears poor. Gerard Zepeda MD Aug 05, 2017 13:07
[2017-08-05] MEDS: AMITRIPTYLINE HCL 10 MG TAB PO SCH (21:03)
[2017-08-06] VITALS (19 sets, daily range): BP systolic 115–157; BP diastolic 53–67; PULSE 60–95; RESP 18–33; TEMP 97.8–98.6; O2SAT 96–100
[2017-08-06] MEDS: HYDROmorphone HCL PF 2 MG/ML VIAL IV PUSH PRN ×3 (02:12→21:02)
[2017-08-06] MEDS: CHLORHEXIDINE GLUCONATE 2 % 1 PACK (2 CLOTHS) TOP SCH (04:00)
[2017-08-06] MEDS: INSULIN NovoLIN REGULAR SUPPLEMENTAL SCALE SQ SCH ×4 (04:58→21:20)
[2017-08-06] MEDS: HEPARIN SODIUM - SQ 10,000 UNITS/ML VIAL SQ SCH ×3 (04:58→21:00)
[2017-08-06] MEDS: LEVOTHYROXINE SODIUM 25 MCG TAB PO SCH (06:24)
[2017-08-06 06:36] LABS: HEMATOCRIT 24.3 % (35.0-46.0); MEAN CELL VOLUME 97.6 FL (80.0-100.0); MEAN CORPUSCULAR HEMOGLOBIN 32.2 PG (27.0-34.0); PLATELET COUNT 139 TH/MM3 (150-450); RED BLOOD COUNT 2.49 MIL/MM3 (4.00-5.30); RED CELL DISTRIBUTION WIDTH 18.4 % (11.6-17.2)
[2017-08-06 06:47] LABS: BICARBONATE 28.2 MEQ/L (21.0-32.0); CALCIUM 9.8 MG/DL (8.5-10.1); CREATININE 1.92 MG/DL (0.50-1.00)
[2017-08-06] MEDS: ZINC SULFATE 220 MG CAP PO SCH (08:29)
[2017-08-06] MEDS: ASCORBIC ACID 500 MG TAB PO SCH ×2 (08:29→20:59)
[2017-08-06] MEDS: GABAPENTIN 300 MG CAP PO SCH (08:29)
[2017-08-06] MEDS: MULTIVITAMIN TAB PO SCH (08:29)
[2017-08-06] MEDS: levETIRAcetam 500 MG/5 ML UDC NG SCH ×2 (08:29→21:00)
[2017-08-06] MEDS: AMIODARONE 200 MG TAB PO SCH ×2 (08:30→21:00)
[2017-08-06] MEDS: DOCUSATE SODIUM 50 MG/SENNA 8.6 MG TAB PO SCH ×2 (08:30→21:00)
[2017-08-06] MEDS: FOLIC ACID 1 MG TAB PO SCH (08:30)
[2017-08-06] MEDS: FERROUS SULFATE 300 MG /5ML UDC PO SCH ×2 (08:30→20:59)
[2017-08-06] MEDS: busPIRone HCL 10 MG TAB PO SCH ×2 (08:30→20:59)
[2017-08-06] MEDS: SODIUM CHLORIDE 0.9% FLUSH 10 ML FLUSH IV FLUSH SCH ×2 (08:31→21:00)
[2017-08-06] MEDS: FAMOTIDINE 40 MG/5 ML LIQ 50 ML BTL NG SCH ×2 (08:31→21:20)
[2017-08-06] MEDS: LACTULOSE SYRUP 20 GM/30 ML CUP PO SCH ×3 (08:32→16:45)
[2017-08-06] MEDS: ARTIFICIAL TEARS OPTH SOLN 15 ML BTL EACH EYE SCH ×2 (09:00→16:42)
--- NOTE | 2017-08-06 11:07 | HHI.NPPN ---
Subjective Interval History Good urine output. Hyperkalemia has improved. Renal function has improved as well. Objective Data Data Vital Signs Date Time Temp Pulse Resp B/P (MAP) Pulse Ox O2 Delivery O2 Flow Rate FiO2 08/06/17 10:59 100 35 08/06/17 10:00 81 08/06/17 10:00 35 08/06/17 09:00 20 08/06/17 08:00 97.9 85 33 127/53 (77) 98 08/06/17 08:00 85 08/06/17 07:57 35 08/06/17 07:57 98 35 08/06/17 07:45 35 08/06/17 06:00 68 08/06/17 04:33 99 35 08/06/17 04:00 35 08/06/17 04:00 98.4 60 18 121/55 (77) 100 08/06/17 04:00 60 08/06/17 02:00 94 08/06/17 02:00 35 08/06/17 01:53 99 35 08/06/17 01:30 98 35 08/06/17 00:00 35 08/06/17 00:00 98.6 95 23 157/67 (97) 99 08/06/17 00:00 95 08/05/17 22:14 99 35 08/05/17 22:00 97 08/05/17 20:00 97 08/05/17 20:00 35 08/05/17 20:00 97.9 97 22 167/67 (100) 99 08/05/17 19:17 99 35 08/05/17 18:00 96 08/05/17 16:00 35 08/05/17 16:00 93 08/05/17 16:00 97.6 93 23 134/71 (92) 100 08/05/17 15:34 99 35 08/05/17 14:00 86 08/05/17 12:00 35 08/05/17 12:00 85 08/05/17 12:00 98.0 85 28 119/55 (76) 99 08/05/17 11:50 100 35 -: 08/06/17 0516 08/06/17 0516 Physical Exam General Appearance Remarks unresponsive. Throat Throat Exam: Oral Mucosa Jones & Moist Neck Neck Exam: Neck Supple Neck Remarks tracheostomy Pulmonary Resp Exam: Clear Bilaterally Cardiology CV Exam: Regular, Normal Sinus Rhythm Gastrointestinal/Abdomen GI Exam: Soft, Non-Tender Extremeties Extremities Exam: Moderate Edema Assessment/Plan Problem List: (1) Hyperkalemia ICD Codes: E87.5 - Hyperkalemia Plan: Improved. ABG revealed only mildly elevated CO2 and mild respiratory acidosis. TF changed to Nepro, continue. Will give her another dose of Lasix today. (2) Acute kidney insufficiency ICD Codes: N28.9 - Disorder of kidney and ureter, unspecified Plan: could be due to allergic interstitial nephritis. Monitor urine output. Currently appears to be non oliguric. Improving. (3) Acute respiratory failure with hypoxia and hypercarbia ICD Codes: J96.01 - Acute respiratory failure with hypoxia; J96.02 - Acute respiratory failure with hypercapnia Plan: Vent support. (4) Hypertension ICD Codes: I10 - Essential (primary) hypertension Plan: BP is acceptable. BP has been labile however, sometimes low, could have contributed to RADHA (5) Encephalopathy ICD Codes: G93.40 - Encephalopathy, unspecified Plan: Prognosis appears to be poor. Kendrick Liriano MD Aug 06, 2017 11:07
[2017-08-06] MEDS ORDERED: FUROSEMIDE 40 MG/4 ML VIAL IV PUSH ONE (11:15)
--- NOTE | 2017-08-06 13:53 | HHI.HCPN ---
Reason for visit a. To assist with evaluation and management of symptoms including: Debility , dyspnea, encephalopathy b. To assist medical decision maker(s) with: better understanding of current medical conditions; weighing benefits/burdens of medical treatment options; making medical treatment decisions. . (Zo Newell) Subjective/Interval History Follow up visit for symptom management and clarification of medical treatment goals; patient's is at bedside. Mrs. Henson is a 76-year-old female with morbid obesity, recurrent HCAP and hypoxic respiratory failure status post tracheostomy on 08/01/2017. Tolerating CPAP trials this morning. Follow-up chest x-ray on 07/30/2017 with probable mild CHF. Urine output is good; hyperkalemia improving with potassium at 4.6. Renal functioning improving. BUN: 75, creatinine 1.92, GFR 25. CBC: WBC 5.0, hemoglobin 8.0, hematocrit 24.3, platelets 139, CMP: Sodium: 144, potassium 4.6, chloride 110, carbon dioxide 28.2, glucose 181 , calcium 9.[address] PEG tube; patient tolerating artificial nutrition via Dobbhoff. Glucerna 1.5 with goal rate of 65 mL per hour per M.D. Total protein: 2.8, albumin 0.5. Neurologically improved. Patient now arouses to verbal stimuli; able to respond yes/no questions by nodding/shaking head and attempting to mouth words; following simple commands consistently. Physical therapy and occupational therapy following. Patient remains dependent for all mobility and ADLs, ongoing passive ROM exercises. Goals remain aggressive; patient awaiting placement. However patient was rejected by [facility] because she did not have enough Medicare days left. Will look into vent-capable SNF facilities. It appears there is one in [place]; family is looking into facilities in [place]. . (Zo Newell) Advance Directives Advance Directive Specifics Documented care wishes: No known document wishes have been completed. . (Zo Newell) Objective Vital Signs Date Time Temp Pulse Resp B/P (MAP) Pulse Ox O2 Delivery O2 Flow Rate FiO2 08/06/17 12:00 35 08/06/17 12:00 98.2 81 30 140/62 (88) 99 08/06/17 12:00 80 08/06/17 10:59 100 35 08/06/17 10:00 81 08/06/17 10:00 35 08/06/17 09:00 20 08/06/17 08:00 97.9 85 33 127/53 (77) 98 08/06/17 08:00 85 08/06/17 07:57 35 08/06/17 07:57 98 35 08/06/17 07:45 35 08/06/17 06:00 68 08/06/17 04:33 99 35 08/06/17 04:00 35 08/06/17 04:00 98.4 60 18 121/55 (77) 100 08/06/17 04:00 60 08/06/17 02:00 94 08/06/17 02:00 35 08/06/17 01:53 99 35 08/06/17 01:30 98 35 08/06/17 00:00 35 08/06/17 00:00 98.6 95 23 157/67 (97) 99 08/06/17 00:00 95 08/05/17 22:14 99 35 08/05/17 22:00 97 08/05/17 20:00 97 08/05/17 20:00 35 08/05/17 20:00 97.9 97 22 167/67 (100) 99 08/05/17 19:17 99 35 08/05/17 18:00 96 08/05/17 16:00 35 08/05/17 16:00 93 08/05/17 16:00 97.6 93 23 134/71 (92) 100 08/05/17 15:34 99 35 08/05/17 14:00 86 Intake & Output 08/06/17 08/06/17 07:00 19:00 Intake Total 999 ml Output Total 800 ml Balance 199 ml Tube Feeding 759 ml Other 240 ml Output Urine Total 800 ml # Bowel Movements 1 . Physical Exam CONSTITUTIONAL/GENERAL: This is a morbidly obese, female patient status post tracheostomy in no acute distress TUBES/LINES/DRAINS: Tracheostomy, Dobbhoff, Female external catheter, PIV SKIN: Generalized pallor. Ecchymosis on bilateral upper extremities. HEAD: Atraumatic. Normocephalic. EYES: No scleral icterus. No injection or drainage. Fundi not examined. ENT: Nose without bleeding or purulent drainage. NECK: Trachea midline. Tracheostomy to CPAP CARDIOVASCULAR: Regular rate and rhythm without murmurs, gallops, or rubs. Upper extremities edematous bilaterally RESPIRATORY/CHEST: Stautus post tracheostomy; on CPAP. Breath sounds diminished , coarse. GASTROINTESTINAL: Protuberant abdomen with nonhealing ulcer from previous PEG tube site. Active bowel sounds 4 GENITOURINARY: Without palpable bladder distension. MUSCULOSKELETAL: Extremities without clubbing or cyanosis. No obvious deformities NEUROLOGICAL: Patient arouses to verbal stimuli; able to respond yes/no questions by nodding/shaking head and attempting to mouth words; following simple commands consistently. PSYCHIATRIC: Unable to assess due to patient's clinical condition . (Zo Newell) Diagnostic Tests Laboratory Laboratory Tests Test 08/04/17 03:51 08/04/17 03:57 08/04/17 10:28 08/05/17 04:30 White Blood Count 5.7 TH/MM3 (4.0-11.0) 4.3 TH/MM3 (4.0-11.0) Red Blood Count 2.47 MIL/MM3 (4.00-5.30) 2.46 MIL/MM3 (4.00-5.30) Hemoglobin 7.7 GM/DL (11.6-15.3) 7.8 GM/DL (11.6-15.3) Hematocrit 23.9 % (35.0-46.0) 23.7 % (35.0-46.0) Mean Corpuscular Volume 96.5 FL (80.0-100.0) 96.3 FL (80.0-100.0) Mean Corpuscular Hemoglobin 31.0 PG (27.0-34.0) 31.7 PG (27.0-34.0) Mean Corpuscular Hemoglobin Concent 32.1 % (32.0-36.0) 33.0 % (32.0-36.0) Red Cell Distribution Width 18.7 % (11.6-17.2) 17.6 % (11.6-17.2) Platelet Count 111 TH/MM3 (150-450) 119 TH/MM3 (150-450) Mean Platelet Volume 10.0 FL (7.0-11.0) 10.0 FL (7.0-11.0) Blood Urea Nitrogen 82 MG/DL (7-18) 79 MG/DL (7-18) Creatinine 2.14 MG/DL (0.50-1.00) 2.04 MG/DL (0.50-1.00) Random Glucose 178 MG/DL (74-106) 128 MG/DL (74-106) Calcium Level 9.5 MG/DL (8.5-10.1) 9.4 MG/DL (8.5-10.1) Sodium Level 141 MEQ/L (136-145) 144 MEQ/L (136-145) Potassium Level 6.2 MEQ/L (3.5-5.1) 5.3 MEQ/L (3.5-5.1) Chloride Level 110 MEQ/L (98-107) 110 MEQ/L (98-107) Carbon Dioxide Level 27.0 MEQ/L (21.0-32.0) 27.7 MEQ/L (21.0-32.0) Anion Gap 4 MEQ/L (5-15) 6 MEQ/L (5-15) Estimat Glomerular Filtration Rate 22 ML/MIN (>89) 24 ML/MIN (>89) Blood Gas Puncture Site RT RADIAL Blood Gas Patient Temperature 98.6 Blood Gas HCO3 25 mmol/L (22-26) Blood Gas Base Excess -0.5 mmol/L (-2-2) Blood Gas Oxygen Saturation 95 % (90-100) Arterial Blood pH 7.33 (7.380-7.420) Arterial Blood Partial Pressure CO2 48 mmHg (38-42) Arterial Blood Partial Pressure O2 101 mmHg (61-120) Arterial Blood Oxygen Content 10.9 Vol % (12.0-20.0) Arterial Blood Carboxyhemoglobin 1.7 % (0-4) Arterial Blood Methemoglobin 1.2 % (0-2) Blood Gas Hemoglobin 8.1 G/DL (12.0-16.0) Oxygen Delivery Device VENTILATOR Blood Gas Ventilator Setting EPAP 5 IPAP 15 Blood Gas Inspired Oxygen 35 % Test 08/06/17 05:16 White Blood Count 5.0 TH/MM3 (4.0-11.0) Red Blood Count 2.49 MIL/MM3 (4.00-5.30) Hemoglobin 8.0 GM/DL (11.6-15.3) Hematocrit 24.3 % (35.0-46.0) Mean Corpuscular Volume 97.6 FL (80.0-100.0) Mean Corpuscular Hemoglobin 32.2 PG (27.0-34.0) Mean Corpuscular Hemoglobin Concent 33.0 % (32.0-36.0) Red Cell Distribution Width 18.4 % (11.6-17.2) Platelet Count 139 TH/MM3 (150-450) Mean Platelet Volume 10.0 FL (7.0-11.0) Blood Urea Nitrogen 75 MG/DL (7-18) Creatinine 1.92 MG/DL (0.50-1.00) Random Glucose 181 MG/DL (74-106) Calcium Level 9.8 MG/DL (8.5-10.1) Sodium Level 144 MEQ/L (136-145) Potassium Level 4.6 MEQ/L (3.5-5.1) Chloride Level 110 MEQ/L (98-107) Carbon Dioxide Level 28.2 MEQ/L (21.0-32.0) Anion Gap 6 MEQ/L (5-15) Estimat Glomerular Filtration Rate 25 ML/MIN (>89) . (Zo Newell) Result Diagram: 08/06/17 0516 08/06/17 0516 Imaging Last 72 hours Impressions Abdomen X-Ray 08/04/17 0000 Signed Impressions: Service Date/Time: Friday, August 04, 2017 22:47 - CONCLUSION: Benign-appearing abdomen. Dobbhoff feeding tube tip in the mid stomach. Charlie Norris MD . Procedures 07/11/2017: Intubation 07/11/2017: OGT placement 07/18/2017: Extubation 07/19/2017: Reintubation 07/25/2017: Tracheostomy . (Zo Newell) Assessment and Plan Disease Oriented Problem List: (1) Metabolic encephalopathy (2) Seizure disorder (3) Neuropathy (4) Acute respiratory failure with hypoxia and hypercarbia (5) HCAP (healthcare-associated pneumonia) (6) Hypertension (7) Acute kidney insufficiency (8) Protein calorie malnutrition (9) UTI (urinary tract infection) (10) Hypothyroidism (11) Respiratory distress (12) Pneumonia Symptom Scale: (1) Debility 0-10 Scale: Unable to quantify (2) Dyspnea 0-10 Scale: Unable to quantify (3) Encephalopathy Pertinent Non-Medical Issues Psychosocial: Patient is originally from [place]. She moved to [place] where she met her . Patient has been 2 times. She had 2 children with her first . Her daughter (Manuela) and son (Landon) lives in [place]. Patient has been to her current for approximately 37 years. She worked with Medicare processing claims. Spiritual: Non-practicing [employer] per spouse Legal: Per [place] statutes, in the absence of written advanced directives healthcare proxy decision-making falls to the patient's . Ethical issues impacting care: No known ethical issues impacting care at this time. . Important Contacts Reji Henson, : [phone] Manuela Kelly: [phone] . Prognosis Patient is a morbidly obese female with recurrent healthcare associated pneumonia, hypoxic respiratory failure and non-healing wounds status post tracheostomy placement. She has had multiple hospitalizations with subsequent LTAC/SNF placement since Dec, 2016. Overall prognosis is very poor; patient will likely not survive this medical illness. . Code Status: Full Code Plan * FULL CODE * Decision-making: Patient is currently unable to participate in establishment of medical treatment goals given her clinical condition. It is unknown if she will regain capacity. Per [place] statutes, in the absence of written advanced * Discussed patient's case with bedside nurse, Brad * Ongoing aggressive goals at this time; patient awaiting placement. However patient was rejected by [facility] because she did not have enough Medicare days left. Will look into vent-capable SNF facilities. It appears there is one in [place]; family is looking into facilities in [place]. * Symptom management-dyspnea: Patient with recurrent HCAP and hypoxic respiratory failure. Patient will likely require long-term ventilation and will be difficult to wean. Status post tracheostomy on 07/25/2017. Follow-up chest x-ray on 07/30/2017 with probable mild CHF. Tolerating CPAP trials this morning. 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 Prior to Dec, 2016 the patient was able to ambulate short distances with a walker. Her states she was otherwise independent for all ADLs. Patient had ongoing hospitalizations and LTAC/SNF recent symptoms 2016. Physical therapy and occupational therapy following. Patient remains dependent for all mobility, ongoing passive ROM exercises. Patient unable to participate secondary to lethargy. Ongoing aggressive goals at this time; patient awaiting placement. However patient was rejected by [facility] because she did not have enough Medicare days left. Will look into vent- capable SNF facilities. It appears there is one in [place]; family is looking into facilities in [place]. * Symptom management-encephalopathy: CT head on 07/11/17 no acute intracranial abnormalities. Neurologically improved. Patient now arouses to verbal stimuli; able to respond yes/no questions by nodding/shaking head and attempting to mouth words; following simple commands consistently. * Palliative care will continue to follow this patient throughout her hospitalization to establish trust, assist with symptom management and clarification of medical treatment goals. . (Zo Newell) Collaborating MD Comments Chart reviewed. Case discussed with palliative care CONSULTANT DIETITIAN. Above CONSULTANT DIETITIAN note reviewed and I concur. . (Sha Tellez MD) Zo Newell Aug 06, 2017 13:53 Sha Tellez MD Aug 14, 2017 14:39
--- NOTE | 2017-08-06 15:06 | HHI.CCPN ---
Subjective Remarks/Hospital Course 07/11: 77-year-old morbidly obese female patient sent in from snf, due to increased lethargy for the last 2 days, hypoglycemia early in the day with sugars of 44, given glucagon, chest x-ray showing a pneumonia according to facility staff, EMS noted the patient was fairly disoriented, GCS 6, and started bag valve masking her because of respiratory distress and hypoxia with sats in the 87% range despite oxygenation. Patient was brought in bag-valve- mask in progress and was immediately intubated in the emergency department by ED attending. 07/12: Sedated, orally intubated on mechanical ventilation. 07/13 Patient is sedated with Fentanyl and intubated. Afebrile. 07/14 No events overnight, Sedated with Fentanyl and Versed. Afebrile. Failed CPAP trials yesterday. 07/15 No events overnight. Sedated and intubated. ABG on CPAP yesterday showed resp acidosis with PH 7.22 and CO2: 58 07/16 Patient remains sedated and intubated 07/17. No events overnight. Remains sedated and intubated 07/18 Patient remains intubated off sedation. Afebrile. 07/19 Patient s/p extubation yesterday on BIPAP overnight. Awake. ABG last night showed resp acidosis with PH: 7.24, pCO2: 66 07/20 Patient was reintubated yesterday for resp failure. Sedated and intubated. Afebrile. 07/21: new HCAP with GNRs in sputum. persistent respiratory failure. likely will require long-term ventilation and slow wean. will consult general surgery for re-do trach and gastric access. 07/22: no changes. no improvements. gen surgery planning PEG/Trach next week. 07/23: sputum growing enterobacter; now on Cefepime per ID. neuro exam still stable, but fails weaning trials quickly. 07/24: no changes. still failing cpap and weaning trials. CT abd/pelvis done at gen surg request without overt abscess at prior peg site. 07/25: s/p trach today. doing well. still failing cpap. approved for LTAC. surgical contra-indication to PEG placement with induration at old PEG site: will use DHT for enteral access and tube feeds. ID giving final recs for duration of therapy. stable for discharge to LTAC when bed available. 07/26 No events overnight. Patient was rejected by [facility] this morning per mattress spring encaser. Afebrile. 07/27 Patient is sedated with Diprivan and intubated. Afebrile. 07/28 No events overnight. Off sedation. On ventilator via trach. 07/29 No events overnight. Tolerated CPAP for most f day yesterday. Afebrile. 07/30: Remains on mechanical ventilation via tracheostomy. Drowsy/ encephalopathic 07/31: Remains encephalopathic, on mechanical ventilation via tracheostomy. Received 1 unit PRBCs yesterday. No melena or rectal bleeding noted. 08/01: Remains encephalopathic, on mechanical ventilation via tracheostomy. Daily C Pap trials ongoing. Neurologic status remains poor. 08/02: no improvements, no changes. does not meet inpatient criteria, but funding problems prevent appropriate placement. overall prognosis very poor. unlikely that she will survive this medical illness. 08/03: continues without significant changes or improvements. 08/04: Remains encephalopathic, on mechanical ventilation via tracheostomy. Potassium elevated. Ordered Kayexalate. 08/05: Remains encephalopathic, on mechanical ventilation via tracheostomy. Potassium levels coming down. 08/06: Remains encephalopathic on mechanical ventilation via tracheostomy. Tolerating tube feeds. Daily C Pap trials Objective Vital Signs Date Time Temp Pulse Resp B/P (MAP) Pulse Ox O2 Delivery O2 Flow Rate FiO2 08/06/17 14:00 85 08/06/17 12:00 35 08/06/17 12:00 98.2 30 140/62 (88) 99 08/04/17 20:33 Ventilator Intake and Output 08/06/17 08/06/17 08/07/17 08:00 16:00 00:00 Intake Total 999 ml Output Total 800 ml Balance 199 ml Result Diagram: 08/06/17 0516 08/06/17 0516 Imaging Last Impressions Abdomen X-Ray 07/25/17 0000 Signed Impressions: Service Date/Time: Tuesday, July 25, 2017 17:34 - CONCLUSION: Dobbhoff catheter tip in the distal stomach. Jasen Delvalle MD Abdomen/Pelvis CT 07/24/17 0000 Signed Impressions: Service Date/Time: Monday, July 24, 2017 14:57 - CONCLUSION: Pleural effusion and atelectasis right greater than left. Bowel gas pattern is unremarkable. No evidence of an abscess. Some induration anterior abdominal wall with some possible early fluid collection inferiorly within the lower pannus. Jame Preciado MD Chest X-Ray 07/21/17 0600 Signed Impressions: Service Date/Time: Friday, July 21, 2017 03:13 - CONCLUSION: Nasogastric tube now in place with the tip below the [id number] of the radiograph. No significant interval change in bilateral pulmonary opacity. Differential diagnosis includes pulmonary edema and infection. Angelito Lovett MD Head CT 07/11/17 1827 Signed Impressions: Service Date/Time: Tuesday, July 11, 2017 21:23 - CONCLUSION: No acute intracranial abnormality Jaden Clark MD Objective Remarks GENERAL: Morbidly obese elderly female s/p trach SKIN: Warm and dry. HEAD: Normocephalic. EYES: No scleral icterus. No injection or drainage. NECK: trachea midline. trach in place CARDIOVASCULAR: Regular rate and rhythm. RESPIRATORY: on mechanical ventilation via tracheostomy, air entry decreased bilaterally at bases, scattered rhonchi. GASTROINTESTINAL: Abdomen soft, non-tender, nondistended. left non-healing ulcer area from prior PEG site. MUSCULOSKELETAL: No cyanosis, or edema. Neuro: Encephalopathic, drowsy, not following commands, on mechanical ventilation via tracheostomy A/P Assessment and Plan Assessment: 77yF with morbid obesity and recurrent healthcare associated pneumonia and hypoxic respiratory failure. s/p trach 07/25. contra-indicated for PEG given recent peg site induration. will use DHT for long-term enteral nutrition. no placement plan at this time. Plan Neuro: metabolic encephalopathy Seizure disorder Neuropathy Off sedation. Monitor neuro status. On Keppra 500mg Q12 oxycodone 5mg po q4h prn for pain. Pulm: Acute hypoxic and hypercarbic Respiratory failure Recurrent healthcare associated pneumonia Reintubated 07/19 Continue with vent support keep sat >92% Bronchodilators, ICU vent bundle. SBT daily as lisa s/p trach 07/[address] Srinivas arias, [facility]. failing daily cpap trials for weakness. CV: History of hypertension Monitor HR and BP keep MAP>65mmHg Amiodarone 200mg BID 2d echo 07/20: normal biventricular function, EF 60%, RVSP 47 mmHg. : Acute kidney injury Free water deficit Monitor renal function, electrolytes replacement as needed. Ordered Kayexalate for hyperkalemia. Nephrology consulted in view of rising BUN creatinine. GI: Morbid Obesity Acute protein calorie malnutrition- moderate On tube feeds- Glucerna 1.5with goal rate 65ml/hr, On roly Colace, Lactulose for bowel regimen. On Reglan 5mg IV Q8 PRN ICU electrolyte protocol ID: Recurrent HCAP pneumonia- resolved. Urinary tract infection- resolved. off abx. monitor clinically.. Urine cx: 07/11: Kleb ESBL, Citrobacter. Repeat urine cx 07/18 - Kirsten Albicans sputum cx: Enterobacter ID following. Heme: Anemia secondary to chronic disease Monitor CBC, on Ferrous sulfate and Folic acid Hep PLT ab -negative 1 unit PRBCs ordered on 07/30 for hemoglobin 7.2, no evidence of melena or rectal bleeding. Endo: Hypothyroidism Hyperglycemia of Critical illness SSI medium scale for glycemic control GI prophylaxis- on Pepcid DVT prophylaxis- Heparin SQ Dispo: Awaiting placement. Patient was rejected by [facility] for not enough medicare days left. will look into vent-capable SNF facilities. does not meet inpatient criteria. consulted palliative care to assist with deciding goals of therapy as alf prognosis appears poor. Gerard Zepeda MD Aug 06, 2017 15:06
[2017-08-06] MEDS: COLLAGENASE OINT 30 GM TUBE TOPICAL SCH (16:42)
[2017-08-06] MEDS: AMITRIPTYLINE HCL 10 MG TAB PO SCH (20:59)
[2017-08-07] VITALS (32 sets, daily range): BP systolic 85–134; BP diastolic 39–60; PULSE 72–94; RESP 9–27; TEMP 98.6–99.1; O2SAT 93–100
[2017-08-07] MEDS: HYDROmorphone HCL PF 2 MG/ML VIAL IV PUSH PRN ×4 (02:12→21:44)
[2017-08-07] MEDS: CHLORHEXIDINE GLUCONATE 2 % 1 PACK (2 CLOTHS) TOP SCH (04:00)
[2017-08-07 05:18] LABS: HEMOGLOBIN 7.1 GM/DL (11.6-15.3); MEAN CELL VOLUME 97.7 FL (80.0-100.0); MEAN CORPUSCULAR HEMOGLOBIN 31.4 PG (27.0-34.0); MEAN CORPUSCULAR HGB CONC 32.2 % (32.0-36.0); MEAN PLATELET VOLUME 9.5 FL (7.0-11.0); PLATELET COUNT 134 TH/MM3 (150-450); RED BLOOD COUNT 2.25 MIL/MM3 (4.00-5.30); RED CELL DISTRIBUTION WIDTH 18.5 % (11.6-17.2)
[2017-08-07 05:43] LABS: BICARBONATE 30.1 MEQ/L (21.0-32.0); CALCIUM 9.3 MG/DL (8.5-10.1); CREATININE 1.88 MG/DL (0.50-1.00)
[2017-08-07] MEDS: LEVOTHYROXINE SODIUM 25 MCG TAB PO SCH (05:48)
[2017-08-07] MEDS: INSULIN NovoLIN REGULAR SUPPLEMENTAL SCALE SQ SCH ×4 (05:48→21:43)
[2017-08-07] MEDS: HEPARIN SODIUM - SQ 10,000 UNITS/ML VIAL SQ SCH ×3 (05:48→21:43)
[2017-08-07] MEDS: FERROUS SULFATE 300 MG /5ML UDC PO SCH ×2 (08:49→21:43)
[2017-08-07] MEDS: LACTULOSE SYRUP 20 GM/30 ML CUP PO SCH ×3 (08:49→17:47)
[2017-08-07] MEDS: FOLIC ACID 1 MG TAB PO SCH (08:49)
[2017-08-07] MEDS: ASCORBIC ACID 500 MG TAB PO SCH ×2 (08:49→21:43)
[2017-08-07] MEDS: ZINC SULFATE 220 MG CAP PO SCH (08:49)
[2017-08-07] MEDS: AMIODARONE 200 MG TAB PO SCH ×2 (08:49→21:43)
[2017-08-07] MEDS: MULTIVITAMIN TAB PO SCH (08:50)
[2017-08-07] MEDS: COLLAGENASE OINT 30 GM TUBE TOPICAL SCH (08:50)
[2017-08-07] MEDS: busPIRone HCL 10 MG TAB PO SCH ×2 (08:50→21:43)
[2017-08-07] MEDS: SODIUM CHLORIDE 0.9% FLUSH 10 ML FLUSH IV FLUSH SCH ×2 (08:50→21:43)
[2017-08-07] MEDS: DOCUSATE SODIUM 50 MG/SENNA 8.6 MG TAB PO SCH ×2 (08:50→21:43)
[2017-08-07] MEDS: levETIRAcetam 500 MG/5 ML UDC NG SCH ×2 (08:50→21:43)
[2017-08-07] MEDS: ARTIFICIAL TEARS OPTH SOLN 15 ML BTL EACH EYE SCH ×3 (08:50→17:48)
[2017-08-07] MEDS: GABAPENTIN 300 MG CAP PO SCH (08:50)
[2017-08-07] MEDS: FAMOTIDINE 40 MG/5 ML LIQ 50 ML BTL NG SCH ×2 (08:52→21:00)
[2017-08-07] MEDS: RESP: ALBUTEROL 2.5 MG/IPRATROPIUM 0.5 MG NEB (SCH) NEB ×3 (09:27→21:32)
--- NOTE | 2017-08-07 09:42 | HHI.CCPN ---
Subjective Remarks/Hospital Course 07/11: 77-year-old morbidly obese female patient sent in from senior living, due to increased lethargy for the last 2 days, hypoglycemia early in the day with sugars of 44, given glucagon, chest x-ray showing a pneumonia according to facility staff, EMS noted the patient was fairly disoriented, GCS 6, and started bag valve masking her because of respiratory distress and hypoxia with sats in the 87% range despite oxygenation. Patient was brought in bag-valve- mask in progress and was immediately intubated in the emergency department by ED attending. 07/12: Sedated, orally intubated on mechanical ventilation. 07/13 Patient is sedated with Fentanyl and intubated. Afebrile. 07/14 No events overnight, Sedated with Fentanyl and Versed. Afebrile. Failed CPAP trials yesterday. 07/15 No events overnight. Sedated and intubated. ABG on CPAP yesterday showed resp acidosis with PH 7.22 and CO2: 58 07/16 Patient remains sedated and intubated 07/17. No events overnight. Remains sedated and intubated 07/18 Patient remains intubated off sedation. Afebrile. 07/19 Patient s/p extubation yesterday on BIPAP overnight. Awake. ABG last night showed resp acidosis with PH: 7.24, pCO2: 66 07/20 Patient was reintubated yesterday for resp failure. Sedated and intubated. Afebrile. 07/21: new HCAP with GNRs in sputum. persistent respiratory failure. likely will require long-term ventilation and slow wean. will consult general surgery for re-do trach and gastric access. 07/22: no changes. no improvements. gen surgery planning PEG/Trach next week. 07/23: sputum growing enterobacter; now on Cefepime per ID. neuro exam still stable, but fails weaning trials quickly. 07/24: no changes. still failing cpap and weaning trials. CT abd/pelvis done at gen surg request without overt abscess at prior peg site. 07/25: s/p trach today. doing well. still failing cpap. approved for LTAC. surgical contra-indication to PEG placement with induration at old PEG site: will use DHT for enteral access and tube feeds. ID giving final recs for duration of therapy. stable for discharge to LTAC when bed available. 07/26 No events overnight. Patient was rejected by [facility] this morning per case supervisor. Afebrile. 07/27 Patient is sedated with Diprivan and intubated. Afebrile. 07/28 No events overnight. Off sedation. On ventilator via trach. 07/29 No events overnight. Tolerated CPAP for most f day yesterday. Afebrile. 07/30: Remains on mechanical ventilation via tracheostomy. Drowsy/ encephalopathic 07/31: Remains encephalopathic, on mechanical ventilation via tracheostomy. Received 1 unit PRBCs yesterday. No melena or rectal bleeding noted. 08/01: Remains encephalopathic, on mechanical ventilation via tracheostomy. Daily C Pap trials ongoing. Neurologic status remains poor. 08/02: no improvements, no changes. does not meet inpatient criteria, but funding problems prevent appropriate placement. overall prognosis very poor. unlikely that she will survive this medical illness. 08/03: continues without significant changes or improvements. 08/04: Remains encephalopathic, on mechanical ventilation via tracheostomy. Potassium elevated. Ordered Kayexalate. 08/05: Remains encephalopathic, on mechanical ventilation via tracheostomy. Potassium levels coming down. 08/06: Remains encephalopathic on mechanical ventilation via tracheostomy. Tolerating tube feeds. Daily C Pap trials 08/07: Patient awake this a.m., following commands answering yes and no questions. The patient remain on CPAP yesterday for an extended period of time. Plan to begin trach collar trials this a.m.. Patient noted 1 g/dl drop in hemoglobin repeat hemoglobin pending. Objective Vital Signs Date Time Temp Pulse Resp B/P (MAP) Pulse Ox O2 Delivery O2 Flow Rate FiO2 08/07/17 09:01 79 10 106/49 (68) 96 08/07/17 08:01 98.6 08/07/17 08:00 35 08/04/17 20:33 Ventilator Intake and Output 08/07/17 08/07/17 08/08/17 08:00 16:00 00:00 Intake Total 750 ml Output Total 550 ml Balance 200 ml Result Diagram: 08/07/17 0430 08/07/17 0430 Imaging Last Impressions Abdomen X-Ray 08/04/17 0000 Signed Impressions: Service Date/Time: Friday, August 04, 2017 22:47 - CONCLUSION: Benign-appearing abdomen. Dobbhoff feeding tube tip in the mid stomach. Charlie Norris MD Chest X-Ray 07/30/17 0000 Signed Impressions: Service Date/Time: Sunday, July 30, 2017 02:49 - CONCLUSION: Probable mild CHF. Aldair Ziegler MD Abdomen/Pelvis CT 07/24/17 0000 Signed Impressions: Service Date/Time: Monday, July 24, 2017 14:57 - CONCLUSION: Pleural effusion and atelectasis right greater than left. Bowel gas pattern is unremarkable. No evidence of an abscess. Some induration anterior abdominal wall with some possible early fluid collection inferiorly within the lower pannus. Jame Preciado MD Head CT [id number] Signed Impressions: Service Date/Time: Tuesday, July 11, 2017 21:23 - CONCLUSION: No acute intracranial abnormality Jaden Clark MD Last Impressions Abdomen X-Ray 07/25/17 0000 Signed Impressions: Service Date/Time: Tuesday, July 25, 2017 17:34 - CONCLUSION: Dobbhoff catheter tip in the distal stomach. Jasen Delvalle MD Abdomen/Pelvis CT 07/24/17 0000 Signed Impressions: Service Date/Time: Monday, July 24, 2017 14:57 - CONCLUSION: Pleural effusion and atelectasis right greater than left. Bowel gas pattern is unremarkable. No evidence of an abscess. Some induration anterior abdominal wall with some possible early fluid collection inferiorly within the lower pannus. Jame Preciado MD Chest X-Ray 07/21/17 0600 Signed Impressions: Service Date/Time: Friday, July 21, 2017 03:13 - CONCLUSION: Nasogastric tube now in place with the tip below the [id number] of the radiograph. No significant interval change in bilateral pulmonary opacity. Differential diagnosis includes pulmonary edema and infection. Angelito Lovett MD Head CT [id number] Signed Impressions: Service Date/Time: Tuesday, July 11, 2017 21:23 - CONCLUSION: No acute intracranial abnormality Jaden Clark MD Objective Remarks GENERAL: Morbidly obese elderly female s/p trach, interacting appropriately to yes and no questions SKIN: Warm and dry. HEAD: Normocephalic. EYES: No scleral icterus. No injection or drainage. NECK: trachea midline. trach in place CARDIOVASCULAR: Regular rate and rhythm. RESPIRATORY: on mechanical ventilation via tracheostomy, air entry decreased bilaterally at bases, scattered rhonchi. GASTROINTESTINAL: Abdomen soft, non-tender, nondistended. left non-healing ulcer area from prior PEG site. MUSCULOSKELETAL: No cyanosis, or edema. Neuro: Alert and oriented following commands x 4, on mechanical ventilation via tracheostomy A/P Assessment and Plan Assessment: 77yF with morbid obesity and recurrent healthcare associated pneumonia and hypoxic respiratory failure. s/p trach 07/25. contra-indicated for PEG given recent peg site induration. will use DHT for long-term enteral nutrition. no placement plan at this time. Plan Neuro: metabolic encephalopathy Seizure disorder Neuropathy Off sedation. Monitor neuro status. On Keppra 500mg Q12 oxycodone 5mg po q4h prn for pain. Pulm: Acute hypoxic and hypercarbic Respiratory failure Recurrent healthcare associated pneumonia Reintubated 07/19 Continue with vent support keep sat >92% Bronchodilators, ICU vent bundle. SBT daily as lisa s/p trach 07/[address] Srinivas [facility] Continue CPAP trials and attempt trach collar trials CV: History of hypertension Monitor HR and BP keep MAP>65mmHg Amiodarone 200mg BID 2d echo 07/20: normal biventricular function, EF 60%, RVSP 47 mmHg. : Acute kidney injury Free water deficit Monitor renal function, electrolytes replacement as needed. Ordered Kayexalate for hyperkalemia. Nephrology consulted in view of rising BUN creatinine. GI: Morbid Obesity Acute protein calorie malnutrition- moderate On tube feeds- Glucerna 1.5with goal rate 65ml/hr, On roly Colace, Lactulose for bowel regimen. On Reglan 5mg IV Q8 PRN ICU electrolyte protocol ID: Recurrent HCAP pneumonia- resolved. Urinary tract infection- resolved. off abx. monitor clinically.. Urine cx: 07/11: Kleb ESBL, Citrobacter. Repeat urine cx 07/18 - Kirsten Albicans sputum cx: Enterobacter ID following. Heme: Anemia secondary to chronic disease Monitor CBC, on Ferrous sulfate and Folic acid Hep PLT ab -negative 1 unit PRBCs ordered on 07/30 for hemoglobin 7.2, no evidence of melena or rectal bleeding. Endo: Hypothyroidism Hyperglycemia of Critical illness SSI medium scale for glycemic control GI prophylaxis- on Pepcid DVT prophylaxis- Heparin SQ Dispo: Awaiting placement. Patient was rejected by [facility] for not enough medicare days left. will look into vent-capable SNF facilities. does not meet inpatient criteria. consulted palliative care to assist with deciding goals of therapy as nursing home prognosis appears poor. Palliative Care has been consulted and also following case. Level 3 Physician Gianna Jeff MD Aug 07, 2017 09:42
[2017-08-07 11:02] LABS: HEMATOCRIT 21.9 % (35.0-46.0); HEMOGLOBIN 7.2 GM/DL (11.6-15.3); MEAN CORPUSCULAR HGB CONC 32.6 % (32.0-36.0); MEAN PLATELET VOLUME 9.7 FL (7.0-11.0); PLATELET COUNT 139 TH/MM3 (150-450); RED BLOOD COUNT 2.24 MIL/MM3 (4.00-5.30); RED CELL DISTRIBUTION WIDTH 18.6 % (11.6-17.2); WHITE BLOOD COUNT 5.5 TH/MM3 (4.0-11.0)
--- NOTE | 2017-08-07 11:05 | HHI.HCPN ---
Reason for visit a. To assist with evaluation and management of symptoms including: Debility , dyspnea, encephalopathy, pain b. To assist medical decision maker(s) with: better understanding of current medical conditions; weighing benefits/burdens of medical treatment options; making medical treatment decisions. . (Zo Newell) Subjective/Interval History Follow up visit for symptom management and clarification of medical treatment goals. Mrs. Henson is a 76-year-old female with morbid obesity, recurrent HCAP and hypoxic respiratory failure status post tracheostomy on 08/01/2017. Patient tolerating CPAP for extended period of time yesterday; will likely attempt trach collar trials sometime today. Follow-up chest x-ray on 07/30/2017 with probable mild CHF. Patient reporting intermittent abdominal and back pain, both rated 8 out of 10. Back pain is described as a constant ache that does not radiate. PRN acetaminophen, oxycodone and hydromorphone are available. Patient has required hydromorphone 0.5 mg IV 2 in the past 24 hours. CBC: WBC 5.0, hemoglobin 7.1, hematocrit 22, platelets 134. Hemoglobin decreased from 8.0 yesterday to 7.1 today-repeat hemoglobin pending. CMP: Sodium: 145, potassium 4.1, chloride 108, carbon dioxide 30.1, glucose 190 , calcium 9.3 BUN: 75, creatinine 1.88, GFR [address] PEG tube; patient tolerating artificial nutrition via Dobbhoff. Glucerna 1.5 with goal rate of 65 mL per hour per M.D. Total protein: 2.8, albumin 0.5. Neurologically improved. Patient opens eyes spontaneously; she is able to respond yes/no questions by nodding/shaking head and attempting to mouth words; following simple commands consistently. Smiles when her is mentioned. Physical therapy and occupational therapy following. Patient remains dependent for all mobility and ADLs, ongoing passive ROM exercises. Goals remain aggressive; patient awaiting placement. However patient was rejected by [facility] because she did not have enough Medicare days left. Will look into vent-capable SNF facilities. It appears there is one in [place]; family is looking into facilities in [place]. . (Zo Newell) Advance Directives Advance Directive Specifics Documented care wishes: No known document wishes have been completed. . (Zo Newell) Objective Vital Signs Date Time Temp Pulse Resp B/P (MAP) Pulse Ox O2 Delivery O2 Flow Rate FiO2 08/07/17 10:43 93 T-piece 45 08/07/17 10:00 72 08/07/17 09:27 95 35 08/07/17 09:01 79 10 106/49 (68) 96 08/07/17 09:00 80 9 99 08/07/17 08:01 98.6 90 27 111/56 (74) 97 08/07/17 08:00 35 08/07/17 08:00 87 25 97 08/07/17 08:00 87 08/07/17 07:01 86 19 120/58 (78) 97 08/07/17 07:00 87 20 97 08/07/17 06:00 81 08/07/17 04:00 75 08/07/17 04:00 98.9 75 16 111/51 (71) 98 08/07/17 04:00 35 08/07/17 03:00 100 35 08/07/17 02:00 82 08/07/17 00:32 97 35 08/07/17 00:00 35 08/07/17 00:00 72 08/07/17 00:00 98.6 72 17 116/52 (73) 97 08/06/17 22:00 74 08/06/17 21:00 96 35 08/06/17 20:00 35 08/06/17 20:00 79 08/06/17 20:00 98.6 79 19 128/58 (81) 97 08/06/17 18:00 67 08/06/17 16:00 97.8 73 19 115/56 (75) 98 08/06/17 16:00 35 08/06/17 16:00 73 08/06/17 15:36 99 35 08/06/17 14:00 85 08/06/17 12:00 35 08/06/17 12:00 98.2 81 30 140/62 (88) 99 08/06/17 12:00 80 08/06/17 10:59 100 35 Intake & Output 08/07/17 08/07/17 07:00 19:00 Intake Total 750 ml Output Total 550 ml Balance 200 ml Tube Feeding 600 ml Tube Irrigant 150 ml Output Urine Total 550 ml . Physical Exam CONSTITUTIONAL/GENERAL: This is a morbidly obese, female patient status post tracheostomy in no acute distress TUBES/LINES/DRAINS: Tracheostomy, Dobbhoff, Female external catheter, PIV SKIN: Generalized pallor. Ecchymosis on bilateral upper extremities. HEAD: Atraumatic. Normocephalic. EYES: No scleral icterus. No injection or drainage. Fundi not examined. ENT: Nose without bleeding or purulent drainage. NECK: Trachea midline. Tracheostomy to CPAP CARDIOVASCULAR: Regular rate and rhythm without murmurs, gallops, or rubs. Upper extremities edematous bilaterally RESPIRATORY/CHEST: Status post tracheostomy; on CPAP. Breath sounds coarse, diminished throughout. GASTROINTESTINAL: Protuberant abdomen with nonhealing ulcer from previous PEG tube site. Active bowel sounds 4 GENITOURINARY: Without palpable bladder distension. MUSCULOSKELETAL: Extremities without clubbing or cyanosis. No obvious deformities. Bilateral upper and lower extremity edema NEUROLOGICAL: Patient opens eyes spontaneously; able to respond yes/no questions by nodding/shaking head and attempting to mouth words; following simple commands consistently. PSYCHIATRIC: Unable to assess due to patient's clinical condition . (Zo Newell) Diagnostic Tests Laboratory Laboratory Tests Test 08/05/17 04:30 08/06/17 05:16 08/07/17 04:30 White Blood Count 4.3 TH/MM3 (4.0-11.0) 5.0 TH/MM3 (4.0-11.0) 5.0 TH/MM3 (4.0-11.0) Red Blood Count 2.46 MIL/MM3 (4.00-5.30) 2.49 MIL/MM3 (4.00-5.30) 2.25 MIL/MM3 (4.00-5.30) Hemoglobin 7.8 GM/DL (11.6-15.3) 8.0 GM/DL (11.6-15.3) 7.1 GM/DL (11.6-15.3) Hematocrit 23.7 % (35.0-46.0) 24.3 % (35.0-46.0) 22.0 % (35.0-46.0) Mean Corpuscular Volume 96.3 FL (80.0-100.0) 97.6 FL (80.0-100.0) 97.7 FL (80.0-100.0) Mean Corpuscular Hemoglobin 31.7 PG (27.0-34.0) 32.2 PG (27.0-34.0) 31.4 PG (27.0-34.0) Mean Corpuscular Hemoglobin Concent 33.0 % (32.0-36.0) 33.0 % (32.0-36.0) 32.2 % (32.0-36.0) Red Cell Distribution Width 17.6 % (11.6-17.2) 18.4 % (11.6-17.2) 18.5 % (11.6-17.2) Platelet Count 119 TH/MM3 (150-450) 139 TH/MM3 (150-450) 134 TH/MM3 (150-450) Mean Platelet Volume 10.0 FL (7.0-11.0) 10.0 FL (7.0-11.0) 9.5 FL (7.0-11.0) Blood Urea Nitrogen 79 MG/DL (7-18) 75 MG/DL (7-18) 75 MG/DL (7-18) Creatinine 2.04 MG/DL (0.50-1.00) 1.92 MG/DL (0.50-1.00) 1.88 MG/DL (0.50-1.00) Random Glucose 128 MG/DL (74-106) 181 MG/DL (74-106) 190 MG/DL (74-106) Calcium Level 9.4 MG/DL (8.5-10.1) 9.8 MG/DL (8.5-10.1) 9.3 MG/DL (8.5-10.1) Sodium Level 144 MEQ/L (136-145) 144 MEQ/L (136-145) 145 MEQ/L (136-145) Potassium Level 5.3 MEQ/L (3.5-5.1) 4.6 MEQ/L (3.5-5.1) 4.1 MEQ/L (3.5-5.1) Chloride Level 110 MEQ/L (98-107) 110 MEQ/L (98-107) 108 MEQ/L (98-107) Carbon Dioxide Level 27.7 MEQ/L (21.0-32.0) 28.2 MEQ/L (21.0-32.0) 30.1 MEQ/L (21.0-32.0) Anion Gap 6 MEQ/L (5-15) 6 MEQ/L (5-15) 7 MEQ/L (5-15) Estimat Glomerular Filtration Rate 24 ML/MIN (>89) 25 ML/MIN (>89) 26 ML/MIN (>89) . (Zo Newell) Result Diagram: 08/07/17 04308/07/17 0430 Procedures 07/11/2017: Intubation 07/11/2017: OGT placement 07/18/2017: Extubation 07/19/2017: Reintubation 07/25/2017: Tracheostomy . (Zo Newell) Assessment and Plan Disease Oriented Problem List: (1) Metabolic encephalopathy (2) Seizure disorder (3) Neuropathy (4) Acute respiratory failure with hypoxia and hypercarbia (5) HCAP (healthcare-associated pneumonia) (6) Hypertension (7) Acute kidney insufficiency (8) Protein calorie malnutrition (9) UTI (urinary tract infection) (10) Hypothyroidism (11) Respiratory distress (12) Pneumonia Symptom Scale: (1) Debility 0-10 Scale: Unable to quantify (2) Dyspnea 0-10 Scale: Unable to quantify (3) Encephalopathy 0-10 Scale: Unable to quantify (4) Pain 0-10 Scale: 8 Comment: Patient reporting intermittent abdominal and back pain, both rated 8 out of 10. Back pain is described as a constant ache that does not radiate. PRN medications are available, being sparingly use. Pertinent Non-Medical Issues Psychosocial: Patient is originally from [place]. She moved to [place] where she met her . Patient has been 2 times. She had 2 children with her first . Her daughter (Manuela) and son (Landon) lives in [place]. Patient has been to her current for approximately 37 years. She worked with Medicare processing claims. Spiritual: Non-practicing Restorationism per spouse Legal: Per [place] statutes, in the absence of written advanced directives healthcare proxy decision-making falls to the patient's . Ethical issues impacting care: No known ethical issues impacting care at this time. . Important Contacts Heribertoolman Henson, : [phone] Manuela Kelly: [phone] . Prognosis Patient is a morbidly obese female with recurrent healthcare associated pneumonia, hypoxic respiratory failure and non-healing wounds status post tracheostomy placement. She has had multiple hospitalizations with subsequent LTAC/SNF placement since Dec, 2016. Overall prognosis is very poor; patient will likely not survive this medical illness. . Code Status: Full Code Plan * FULL CODE * Decision-making: Patient is currently unable to participate in establishment of medical treatment goals given her clinical condition. It is unknown if she will regain capacity. Per [place] statutes, in the absence of written advanced * Discussed patient's case with bedside nurse, Brenda. * Ongoing aggressive goals at this time; patient awaiting placement. However patient was rejected by [facility] because she did not have enough Medicare days left. Will look into vent-capable SNF facilities. It appears there is one in [place]; family is looking into facilities in [place]. * Symptom management-pain: Patient reporting intermittent abdominal and back pain, both rated 8 out of 10. Back pain is described as a constant ache that does not radiate. PRN acetaminophen, oxycodone and hydromorphone are available, being sparingly used. Patient has required hydromorphone 0.5 mg IV 2 in the past 24 hour. PRN requirements and make recommendations as indicated. * Symptom management-dyspnea: Patient with recurrent HCAP and hypoxic respiratory failure. Status post tracheostomy on 07/25/2017. Follow-up chest x- ray on 07/30/2017 with probable mild CHF. Tolerating CPAP trials for extended periods of time yesterday, will likely attempt trach collar trials sometime today. 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 Prior to Dec, 2016 the patient was able to ambulate short distances with a walker. Her states she was otherwise independent for all ADLs. Patient had ongoing hospitalizations and LTAC/SNF recent symptoms 2016. Physical therapy and occupational therapy following. Patient remains dependent for all mobility, ongoing passive ROM exercises. Patient unable to participate secondary to lethargy. Ongoing aggressive goals at this time; patient awaiting placement. However patient was rejected by [facility] because she did not have enough Medicare days left. Will look into vent- capable SNF facilities. It appears there is one in [place]; family is looking into facilities in [place]. * Symptom management-encephalopathy: CT head on 07/11/17 no acute intracranial abnormalities. Neurologically improved. Patient now opened eyes spontaneously; able to respond yes/no questions by nodding/shaking head and attempting to mouth words; following simple commands consistently. * Palliative care will continue to follow this patient throughout her hospitalization to establish trust, assist with symptom management and clarification of medical treatment goals. . (Zo Newell) Attestation To help prompt me to consider important information that might be impacting today's encounter and assessment, information from prior notes written by myself or my colleagues may have been "brought forward" into today's note. My signature on this note, however, is an attestation that I personally performed the exam, history, and/or decision-making noted today, and, unless otherwise indicated, the interactions with patient, family, and staff as well as the review of records all occurred today. I also attest that the listed assessment and stated plan reflect my best clinical judgment today based on the combination of historical information, prior notes, and today's exam/ interactions. When time spent is documented, it refers only to time spent today by the signer, or if indicated, combined time spent today by collaborating physician/nurse practitioner. . (Zo Newell) Collaborating MD Comments Chart reviewed. Case discussed with palliative care CVICU NURSE. Above CVICU NURSE note reviewed and I concur. . (Sha Tellez MD) Zo Newell Aug 07, 2017 11:05 Sha Tellez MD Aug 14, 2017 14:47
--- NOTE | 2017-08-07 11:08 | HHI.NPPN ---
Subjective Renal Failure: Acute Interval History She is sleepy. On CPAP via trach. Renal function is better. Her edema persists. (Nicki Zapata) Review of Systems General Constitutional: Fatigue (Nicki Zapata) Respiratory Lungs: SOB, Cough (Nicki Zapata) Cardiovascular Cardiac: Edema (Nicki Zapata) Objective Data Data Vital Signs Date Time Temp Pulse Resp B/P (MAP) Pulse Ox O2 Delivery O2 Flow Rate FiO2 08/07/17 10:44 45 08/07/17 10:43 93 T-piece 45 08/07/17 10:00 72 08/07/17 09:27 95 35 08/07/17 09:01 79 10 106/49 (68) 96 08/07/17 09:00 80 9 99 08/07/17 08:01 98.6 90 27 111/56 (74) 97 08/07/17 08:00 35 08/07/17 08:00 87 25 97 08/07/17 08:00 87 08/07/17 07:01 86 19 120/58 (78) 97 08/07/17 07:00 87 20 97 08/07/17 06:00 81 08/07/17 04:00 75 08/07/17 04:00 98.9 75 16 111/51 (71) 98 08/07/17 04:00 35 08/07/17 03:00 100 35 08/07/17 02:00 82 08/07/17 00:32 97 35 08/07/17 00:00 35 08/07/17 00:00 72 08/07/17 00:00 98.6 72 17 116/52 (73) 97 08/06/17 22:00 74 08/06/17 21:00 96 35 08/06/17 20:00 35 08/06/17 20:00 79 08/06/17 20:00 98.6 79 19 128/58 (81) 97 08/06/17 18:00 67 08/06/17 16:00 97.8 73 19 115/56 (75) 98 08/06/17 16:00 35 08/06/17 16:00 73 08/06/17 15:36 99 35 08/06/17 14:00 85 08/06/17 12:00 35 08/06/17 12:00 98.2 81 30 140/62 (88) 99 08/06/17 12:00 80 (Nicki Zapata) -: 08/07/17 0430 08/07/17 0430 Imaging Last Impressions Abdomen X-Ray 08/04/17 0000 Signed Impressions: Service Date/Time: Friday, August 04, 2017 22:47 - CONCLUSION: Benign-appearing abdomen. Dobbhoff feeding tube tip in the mid stomach. Charlie Norris MD Chest X-Ray 07/30/17 0000 Signed Impressions: Service Date/Time: Sunday, July 30, 2017 02:49 - CONCLUSION: Probable mild CHF. K. Jhonny Ziegler MD Abdomen/Pelvis CT 07/24/17 0000 Signed Impressions: Service Date/Time: Monday, July 24, 2017 14:57 - CONCLUSION: Pleural effusion and atelectasis right greater than left. Bowel gas pattern is unremarkable. No evidence of an abscess. Some induration anterior abdominal wall with some possible early fluid collection inferiorly within the lower pannus. Jame Preciado MD Head CT 07/11/17 1827 Signed Impressions: Service Date/Time: Tuesday, July 11, 2017 21:23 - CONCLUSION: No acute intracranial abnormality Jaden Clark MD (Nicki Zapata) Physical Exam General Appearance: Comfortable, Malnourished Appearance Remarks chronically ill appearing (Nicki Zapata) Eyes Eye Exam: Pupils Equal (Nicki Zapata) Throat Throat Exam: Oral Mucosa [place] & Moist (Nicki Zapata) Neck Neck Exam: Neck Supple (Nicki Zapata) Pulmonary Resp Exam: Clear Bilaterally, No Distress, Diminished Breath Sounds Resp Remarks trach (Nicki Zapata) Cardiology CV Exam: Regular, Normal Sinus Rhythm (Nicki Zapata) Gastrointestinal/Abdomen GI Exam: Soft, Non-Tender (Nicki Zapata) Extremeties Extremities Exam: Pedal Pulses Palpable, Moderate Edema, Pitting Edema, Dependent Edema (Nicki Zapata) Neurologic Neuro Exam: Awake (Nicki Zapata) Assessment/Plan Discussed Condition With: Patient Problem List: (1) Acute kidney insufficiency ICD Codes: N28.9 - Disorder of kidney and ureter, unspecified Plan: Renal function is improving. She is non oliguric. continue bay for now. RADHA could be due to allergic interstitial nephritis vs. hypoperfusion injury due to hypotension. Repeat labs in AM. Give lasix via PEG. Avoid nephrotoxic agents. Renally dose if appropriate. (2) Hyperkalemia ICD Codes: E87.5 - Hyperkalemia Plan: Improved. Continue to monitor. Will give her another dose of Lasix today. (3) Acute respiratory failure with hypoxia and hypercarbia ICD Codes: J96.01 - Acute respiratory failure with hypoxia; J96.02 - Acute respiratory failure with hypercapnia Plan: Vent support. Currently on CPAP. (4) Hypertension ICD Codes: I10 - Essential (primary) hypertension Plan: BP is borderline low today. Monitor and continue medications as ordered. (5) Encephalopathy ICD Codes: G93.40 - Encephalopathy, unspecified Plan: Prognosis appears to be poor. (Nicki Zapata) Problem List: (1) Acute kidney insufficiency ICD Codes: N28.9 - Disorder of kidney and ureter, unspecified Plan: Renal function is improving. She is non oliguric. continue bay for now. RADHA could be due to allergic interstitial nephritis vs. hypoperfusion injury due to hypotension. Repeat labs in AM. Give lasix via PEG. Avoid nephrotoxic agents. Renally dose if appropriate. (2) Hyperkalemia ICD Codes: E87.5 - Hyperkalemia Plan: Improved. Continue to monitor. Will give her another dose of Lasix today. (3) Acute respiratory failure with hypoxia and hypercarbia ICD Codes: J96.01 - Acute respiratory failure with hypoxia; J96.02 - Acute respiratory failure with hypercapnia Plan: Vent support. Currently on CPAP. (4) Hypertension ICD Codes: I10 - Essential (primary) hypertension Plan: BP is borderline low today. Monitor and continue medications as ordered. (5) Encephalopathy ICD Codes: G93.40 - Encephalopathy, unspecified Plan: Prognosis appears to be poor. Plan patient was seen and examined. Agree with above assessment and plan. (Kendrick Liriano MD) Nicki Zapata Aug 07, 2017 11:08 Kendrick Liriano MD Aug 07, 2017 21:10
[2017-08-07] MEDS: FUROSEMIDE 40 MG/5 ML UNIT DOSE CUP NG SCH (13:43)
[2017-08-07] MEDS: AMITRIPTYLINE HCL 10 MG TAB PO SCH (21:43)
[2017-08-07] MEDS: PADIMATE (CHAPSTICK) 4.5 GM TUBE TOPICAL PRN (21:44)
[2017-08-08] VITALS (16 sets, daily range): BP systolic 112–144; BP diastolic 53–64; PULSE 69–98; RESP 18–22; TEMP 97.8–99.6; O2SAT 96–100
[2017-08-08] MEDS: RESP: ALBUTEROL 2.5 MG/IPRATROPIUM 0.5 MG NEB (SCH) NEB ×4 (03:12→20:31)
[2017-08-08] MEDS: CHLORHEXIDINE GLUCONATE 2 % 1 PACK (2 CLOTHS) TOP SCH (04:00)
[2017-08-08 05:21] LABS: HEMATOCRIT 23.2 % (35.0-46.0); HEMOGLOBIN 7.5 GM/DL (11.6-15.3); MEAN CELL VOLUME 98.7 FL (80.0-100.0); MEAN CORPUSCULAR HEMOGLOBIN 31.9 PG (27.0-34.0); MEAN CORPUSCULAR HGB CONC 32.3 % (32.0-36.0); MEAN PLATELET VOLUME 9.7 FL (7.0-11.0); PLATELET COUNT 162 TH/MM3 (150-450); RED BLOOD COUNT 2.35 MIL/MM3 (4.00-5.30); RED CELL DISTRIBUTION WIDTH 18.9 % (11.6-17.2)
[2017-08-08 05:39] LABS: BICARBONATE 31.5 MEQ/L (21.0-32.0); CALCIUM 9.5 MG/DL (8.5-10.1); CREATININE 2.21 MG/DL (0.50-1.00)
[2017-08-08] MEDS: HEPARIN SODIUM - SQ 10,000 UNITS/ML VIAL SQ SCH ×3 (06:17→20:52)
[2017-08-08] MEDS: LEVOTHYROXINE SODIUM 25 MCG TAB PO SCH (06:17)
[2017-08-08] MEDS: INSULIN NovoLIN REGULAR SUPPLEMENTAL SCALE SQ SCH ×4 (06:17→21:18)
[2017-08-08] MEDS: MULTIVITAMIN TAB PO SCH (08:00)
[2017-08-08] MEDS: DOCUSATE SODIUM 50 MG/SENNA 8.6 MG TAB PO SCH ×2 (08:00→21:00)
[2017-08-08] MEDS: ASCORBIC ACID 500 MG TAB PO SCH ×2 (08:00→20:52)
[2017-08-08] MEDS: GABAPENTIN 300 MG CAP PO SCH (08:00)
[2017-08-08] MEDS: AMIODARONE 200 MG TAB PO SCH ×2 (08:00→20:52)
[2017-08-08] MEDS: ZINC SULFATE 220 MG CAP PO SCH (08:00)
[2017-08-08] MEDS: levETIRAcetam 500 MG/5 ML UDC NG SCH ×2 (08:00→20:51)
[2017-08-08] MEDS: busPIRone HCL 10 MG TAB PO SCH ×2 (08:00→20:52)
[2017-08-08] MEDS: FOLIC ACID 1 MG TAB PO SCH (08:00)
[2017-08-08] MEDS: FERROUS SULFATE 300 MG /5ML UDC PO SCH ×2 (08:00→20:52)
[2017-08-08] MEDS: LACTULOSE SYRUP 20 GM/30 ML CUP PO SCH ×3 (08:00→18:01)
[2017-08-08] MEDS: FUROSEMIDE 40 MG/5 ML UNIT DOSE CUP NG SCH (08:01)
[2017-08-08] MEDS: ARTIFICIAL TEARS OPTH SOLN 15 ML BTL EACH EYE SCH ×3 (08:01→18:01)
[2017-08-08] MEDS: COLLAGENASE OINT 30 GM TUBE TOPICAL SCH (08:01)
[2017-08-08] MEDS: SODIUM CHLORIDE 0.9% FLUSH 10 ML FLUSH IV FLUSH SCH ×2 (08:01→20:53)
--- NOTE | 2017-08-08 11:14 | HHI.NPPN ---
Subjective Renal Failure: Acute Interval History She is off the vent. Renal function is worse. Significant edema persists. (Nicki Zapata) Review of Systems General Constitutional: Fatigue (Nicki Zapata) Respiratory Lungs: SOB, Cough (Nicki Zapata) Cardiovascular Cardiac: Edema (Nicki Zapata) Objective Data Data Vital Signs Date Time Temp Pulse Resp B/P (MAP) Pulse Ox O2 Delivery O2 Flow Rate FiO2 08/08/17 09:02 96 T-piece 35 08/08/17 06:00 80 08/08/17 04:00 89 08/08/17 04:00 99.4 89 19 122/53 (76) 99 08/08/17 03:50 100 35 08/08/17 02:00 69 08/08/17 00:23 100 35 08/08/17 00:00 99.6 72 20 144/64 (90) 98 08/08/17 00:00 72 08/07/17 22:00 85 08/07/17 21:40 99 35 08/07/17 21:32 98 T-piece 6.00 45 08/07/17 20:00 94 08/07/17 20:00 99.1 94 21 122/56 (78) 95 08/07/17 18:00 92 08/07/17 17:00 88 14 94/44 (61) 95 08/07/17 16:01 98.8 84 15 92/42 (59) 98 08/07/17 16:00 84 15 98 08/07/17 16:00 84 08/07/17 15:01 94 21 134/60 (84) 99 08/07/17 15:00 93 22 99 08/07/17 14:00 91 20 103/50 (67) 96 08/07/17 14:00 91 08/07/17 13:00 84 14 95/46 (62) 94 08/07/17 12:01 98.6 80 15 92/43 (59) 94 08/07/17 12:00 80 08/07/17 12:00 80 16 94 (Nicik Zapata) -: 08/08/17 0410 08/08/17 0410 Physical Exam General Appearance: Comfortable, Malnourished Appearance Remarks chronically ill appearing (Nicki ZapataP) Eyes Eye Exam: Pupils Equal (Nicki Zapata PLATE MAKER) Throat Throat Exam: Oral Mucosa [place] & Moist (Nicki Zapata PLATE MAKER) Neck Neck Exam: Neck Supple (Nicki Zapata. PLATE MAKER) Pulmonary Resp Exam: Clear Bilaterally, No Distress, Diminished Breath Sounds Resp Remarks trach (Nicki Zapata PLATE MAKER) Cardiology CV Exam: Regular, Normal Sinus Rhythm (Nicki Zapata PLATE MAKER) Gastrointestinal/Abdomen GI Exam: Soft, Non-Tender (Nicki Zapata PLATE MAKER) Musculoskeletal MS Exam: Unable to Ambulate (Nicki Zapata PLATE MAKER) Integumentary Skin Exam: Warm, Dry (Nicki Zapata PLATE MAKER) Extremeties Extremities Exam: Pedal Pulses Palpable, Moderate Edema, Pitting Edema, Dependent Edema (Nicki Zapata PLATE MAKER) Neurologic Neuro Exam: Awake, Obtunded (Nicki Zapata) Assessment/Plan Discussed Condition With: Patient Problem List: (1) Acute kidney insufficiency ICD Codes: N28.9 - Disorder of kidney and ureter, unspecified Plan: RADHA could be due to allergic interstitial nephritis vs. hypoperfusion injury due to hypotension. She was hypotensive again overnight. Renal function is worse today. Hold lasix today and monitor. Urine output may have slowed. Continue to monitor. Repeat labs in AM. Avoid hypotension. Flush bay as sediment is present. Avoid nephrotoxic agents. Renally dose if appropriate. (2) Hyperkalemia ICD Codes: E87.5 - Hyperkalemia Plan: Improved. Continue to monitor. (3) Acute respiratory failure with hypoxia and hypercarbia ICD Codes: J96.01 - Acute respiratory failure with hypoxia; J96.02 - Acute respiratory failure with hypercapnia Plan: Off the vent. On Tpiece. (4) Hypertension ICD Codes: I10 - Essential (primary) hypertension Plan: BP is borderline low today. Monitor and avoid antihypertensives. (5) Encephalopathy ICD Codes: G93.40 - Encephalopathy, unspecified Plan: Prognosis appears to be poor. (Nicki Zapata PLATE MAKER) Plan patient was seen and examined. Renal function is worse. Monitor, hold diuretic for a day. Poor prognosis. Not a candidate for renal replacement therapy. (Kendrick Liriano MD) Nicki Zapata Aug 08, 2017 11:14 Kendrick Liriano MD Aug 08, 2017 17:51
[2017-08-08] MEDS: FAMOTIDINE 40 MG/5 ML LIQ 50 ML BTL NG SCH ×2 (11:54→21:00)
--- NOTE | 2017-08-08 16:18 | HHI.CCPN ---
Subjective Remarks/Hospital Course 07/11: 77-year-old morbidly obese female patient [facility], due to increased lethargy for the last 2 days, hypoglycemia early in the day with sugars of 44, given glucagon, chest x-ray showing a pneumonia according to facility staff, EMS noted the patient was fairly disoriented, GCS 6, and started bag valve masking her because of respiratory distress and hypoxia with sats in the 87% range despite oxygenation. Patient was brought in bag-valve- mask in progress and was immediately intubated in the emergency department by ED attending. 07/12: Sedated, orally intubated on mechanical ventilation. 07/13 Patient is sedated with Fentanyl and intubated. Afebrile. 07/14 No events overnight, Sedated with Fentanyl and Versed. Afebrile. Failed CPAP trials yesterday. 07/15 No events overnight. Sedated and intubated. ABG on CPAP yesterday showed resp acidosis with PH 7.22 and CO2: 58 07/16 Patient remains sedated and intubated 07/17. No events overnight. Remains sedated and intubated 07/18 Patient remains intubated off sedation. Afebrile. 07/19 Patient s/p extubation yesterday on BIPAP overnight. Awake. ABG last night showed resp acidosis with PH: 7.24, pCO2: 66 07/20 Patient was reintubated yesterday for resp failure. Sedated and intubated. Afebrile. 07/21: new HCAP with GNRs in sputum. persistent respiratory failure. likely will require long-term ventilation and slow wean. will consult general surgery for re-do trach and gastric access. 07/22: no changes. no improvements. gen surgery planning PEG/Trach next week. 07/23: sputum growing enterobacter; now on Cefepime per ID. neuro exam still stable, but fails weaning trials quickly. 07/24: no changes. still failing cpap and weaning trials. CT abd/pelvis done at gen surg request without overt abscess at prior peg site. 07/25: s/p trach today. doing well. still failing cpap. approved for LTAC. surgical contra-indication to PEG placement with induration at old PEG site: will use DHT for enteral access and tube feeds. ID giving final recs for duration of therapy. stable for discharge to LTAC when bed available. 07/26 No events overnight. Patient was rejected by [facility] this morning per home health care case manager. Afebrile. 07/27 Patient is sedated with Diprivan and intubated. Afebrile. 07/28 No events overnight. Off sedation. On ventilator via trach. 07/29 No events overnight. Tolerated CPAP for most f day yesterday. Afebrile. 07/30: Remains on mechanical ventilation via tracheostomy. Drowsy/ encephalopathic 07/31: Remains encephalopathic, on mechanical ventilation via tracheostomy. Received 1 unit PRBCs yesterday. No melena or rectal bleeding noted. 08/01: Remains encephalopathic, on mechanical ventilation via tracheostomy. Daily C Pap trials ongoing. Neurologic status remains poor. 08/02: no improvements, no changes. does not meet inpatient criteria, but funding problems prevent appropriate placement. overall prognosis very poor. unlikely that she will survive this medical illness. 08/03: continues without significant changes or improvements. 08/04: Remains encephalopathic, on mechanical ventilation via tracheostomy. Potassium elevated. Ordered Kayexalate. 08/05: Remains encephalopathic, on mechanical ventilation via tracheostomy. Potassium levels coming down. 08/06: Remains encephalopathic on mechanical ventilation via tracheostomy. Tolerating tube feeds. Daily C Pap trials 08/07: Patient awake this a.m., following commands answering yes and no questions. The patient remain on CPAP yesterday for an extended period of time. Plan to begin trach collar trials this a.m.. Patient noted 1 g/dl drop in hemoglobin repeat hemoglobin pending. 08/08: Tmax 99.6. Hemoglobin stabilized. The patient was initiated on T piece trials yesterday morning and sustained T piece trials for greater than 12 hours yesterday. Patient placed back on PRN antianxiety meds Xanax, states she is anxious. T piece trials reinitiated this a.m. Of patient noted to have elevated glucose levels persistent. Levemir 5 units subcutaneous twice a day hemoglobin A1c pending. Creatinine noted to be worsening nephrology is following. Tolerating tube feeds. Objective Vital Signs Date Time Temp Pulse Resp B/P (MAP) Pulse Ox O2 Delivery O2 Flow Rate FiO2 08/08/17 09:02 96 T-piece 35 08/08/17 06:00 80 08/08/17 04:00 99.4 19 122/53 (76) 08/07/17 21:32 6.00 Intake and Output 08/08/17 08/08/17 08/09/17 08:00 16:00 00:00 Intake Total 750 ml Output Total 300 ml Balance 450 ml Result Diagram: 08/08/17 0410 08/08/17 0410 Imaging Last Impressions Abdomen X-Ray 08/04/17 0000 Signed Impressions: Service Date/Time: Friday, August 04, 2017 22:47 - CONCLUSION: Benign-appearing abdomen. Dobbhoff feeding tube tip in the mid stomach. Charlie Norris MD Chest X-Ray 07/30/17 0000 Signed Impressions: Service Date/Time: Sunday, July 30, 2017 02:49 - CONCLUSION: Probable mild CHF. KFelicia Ziegler MD Abdomen/Pelvis CT 07/24/17 0000 Signed Impressions: Service Date/Time: Monday, July 24, 2017 14:57 - CONCLUSION: Pleural effusion and atelectasis right greater than left. Bowel gas pattern is unremarkable. No evidence of an abscess. Some induration anterior abdominal wall with some possible early fluid collection inferiorly within the lower pannus. Jame Preciado MD Head CT 07/11/17 1827 Signed Impressions: Service Date/Time: Tuesday, July 11, 2017 21:23 - CONCLUSION: No acute intracranial abnormality Jaden Clark MD Last Impressions Abdomen X-Ray 07/25/17 0000 Signed Impressions: Service Date/Time: Tuesday, July 25, 2017 17:34 - CONCLUSION: Dobbhoff catheter tip in the distal stomach. Jasen Delvalle MD Abdomen/Pelvis CT 07/24/17 0000 Signed Impressions: Service Date/Time: Monday, July 24, 2017 14:57 - CONCLUSION: Pleural effusion and atelectasis right greater than left. Bowel gas pattern is unremarkable. No evidence of an abscess. Some induration anterior abdominal wall with some possible early fluid collection inferiorly within the lower pannus. Jame Preciado MD Chest X-Ray 07/21/17 0600 Signed Impressions: Service Date/Time: Friday, July 21, 2017 03:13 - CONCLUSION: Nasogastric tube now in place with the tip below the [id number] of the radiograph. No significant interval change in bilateral pulmonary opacity. Differential diagnosis includes pulmonary edema and infection. Angelito Lovett MD Head CT 07/11/17 0847 Signed Impressions: Service Date/Time: Tuesday, July 11, 2017 21:23 - CONCLUSION: No acute intracranial abnormality Jaden Clark MD Objective Remarks GENERAL: Morbidly obese elderly female s/p trach, interacting appropriately to yes and no questions, denies pain SKIN: Warm and dry. HEAD: Normocephalic. EYES: No scleral icterus. No injection or drainage. NECK: trachea midline. trach in place CARDIOVASCULAR: Regular rate and rhythm. RESPIRATORY: on mechanical ventilation via tracheostomy, air entry decreased bilaterally at bases, scattered rhonchi. GASTROINTESTINAL: Abdomen soft, non-tender, nondistended. left non-healing ulcer area from prior PEG site. MUSCULOSKELETAL: No cyanosis, or edema. Neuro: Alert and oriented following commands x 4, on mechanical ventilation via tracheostomy A/P Assessment and Plan Assessment: 77yF with morbid obesity and recurrent healthcare associated pneumonia and hypoxic respiratory failure. s/p trach 07/25. contra-indicated for PEG given recent peg site induration. will use DHT for long-term enteral nutrition. no placement plan at this time. Plan Neuro: metabolic encephalopathy Seizure disorder Neuropathy Anxiety disorder Off sedation. Monitor neuro status. On Keppra 500mg Q12 oxycodone 5mg po q4h prn for pain Xanax 0.25 every 4 hours when necessary, patient previously on Xanax 0.5 every 6 hours we'll continue to monitor. Pulm: Acute hypoxic and hypercarbic Respiratory failure Recurrent healthcare associated pneumonia Reintubated 07/19 Continue with vent support keep sat >92% Bronchodilators, ICU vent bundle. SBT daily as lisa s/p trach 07/[address] Srinivas Kennedy to[facility], [facility]. Continue CPAP trials and attempt trach collar trials Trach collar trials initiated 08/07/17 CV: History of hypertension Monitor HR and BP keep MAP>65mmHg Amiodarone 200mg BID 2d echo 07/20: normal biventricular function, EF 60%, RVSP 47 mmHg. : Acute kidney injury Free water deficit Monitor renal function, electrolytes replacement as needed. Ordered Kayexalate for hyperkalemia. Nephrology consulted in view of rising BUN creatinine. GI: Morbid Obesity Acute protein calorie malnutrition- moderate On tube feeds- Glucerna 1.5with goal rate 65ml/hr, On roly Colace, Lactulose for bowel regimen. On Reglan 5mg IV Q8 PRN ICU electrolyte protocol ID: Recurrent HCAP pneumonia- resolved. Urinary tract infection- resolved. off abx. monitor clinically.. Urine cx: 07/11: Kleb ESBL, Citrobacter. Repeat urine cx 07/18 - Kirsten Albicans sputum cx: Enterobacter ID following. Heme: Anemia secondary to chronic disease Monitor CBC, on Ferrous sulfate and Folic acid Hep PLT ab -negative 1 unit PRBCs ordered on 07/30 for hemoglobin 7.2, no evidence of melena or rectal bleeding. Endo: Hypothyroidism Hyperglycemia of Critical illness SSI medium scale for glycemic control Obtain hemoglobin A1c 08/08 begin Levemir 5 units SQ BID GI prophylaxis- on Pepcid DVT prophylaxis- Heparin SQ Dispo: Awaiting placement. Patient was rejected by [facility] for not enough medicare days left. will look into vent-capable SNF facilities. does not meet inpatient criteria. 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 Palliative Care has been consulted and also following case. Level 3 Discussed with FRAME MAKER (Geri) at bedside Physician Gianna Jeff MD Aug 08, 2017 16:18
[2017-08-08] MEDS ORDERED: ALPRAZolam 0.25 MG TAB PO PRN (16:45)
[2017-08-08] MEDS: AMITRIPTYLINE HCL 10 MG TAB PO SCH (20:52)
[2017-08-08] MEDS: INSULIN DETEMIR 100 UNITS/ML VIAL SQ SCH (21:00)
[2017-08-09] VITALS (39 sets, daily range): BP systolic 94–158; BP diastolic 42–63; PULSE 69–97; RESP 20; TEMP 97.5–98.9; O2SAT 93–100
[2017-08-09] MEDS: INSULIN NovoLIN REGULAR SUPPLEMENTAL SCALE SQ SCH ×4 (04:00→22:39)
[2017-08-09] MEDS: CHLORHEXIDINE GLUCONATE 2 % 1 PACK (2 CLOTHS) TOP SCH (04:00)
[2017-08-09] MEDS: RESP: ALBUTEROL 2.5 MG/IPRATROPIUM 0.5 MG NEB (SCH) NEB ×4 (04:18→19:46)
[2017-08-09] MEDS: LEVOTHYROXINE SODIUM 25 MCG TAB PO SCH (05:20)
[2017-08-09] MEDS: HEPARIN SODIUM - SQ 10,000 UNITS/ML VIAL SQ SCH ×3 (05:20→21:07)
[2017-08-09 07:18] LABS: HEMOGLOBIN 7.6 GM/DL (11.6-15.3); MEAN CELL VOLUME 98.7 FL (80.0-100.0); MEAN CORPUSCULAR HEMOGLOBIN 32.7 PG (27.0-34.0); MEAN CORPUSCULAR HGB CONC 33.1 % (32.0-36.0); MEAN PLATELET VOLUME 9.8 FL (7.0-11.0); PLATELET COUNT 176 TH/MM3 (150-450); RED BLOOD COUNT 2.33 MIL/MM3 (4.00-5.30); RED CELL DISTRIBUTION WIDTH 18.4 % (11.6-17.2); WHITE BLOOD COUNT 6.4 TH/MM3 (4.0-11.0)
[2017-08-09 07:40] LABS: BICARBONATE 30.5 MEQ/L (21.0-32.0); CALCIUM 9.9 MG/DL (8.5-10.1); CREATININE 2.54 MG/DL (0.50-1.00); PHOSPHORUS 4.8 MG/DL (2.5-4.9)
[2017-08-09] MEDS: FOLIC ACID 1 MG TAB PO SCH (09:06)
[2017-08-09] MEDS: LACTULOSE SYRUP 20 GM/30 ML CUP PO SCH ×3 (09:06→18:36)
[2017-08-09] MEDS: DOCUSATE SODIUM 50 MG/SENNA 8.6 MG TAB PO SCH ×2 (09:06→21:06)
[2017-08-09] MEDS: ASCORBIC ACID 500 MG TAB PO SCH ×2 (09:06→21:06)
[2017-08-09] MEDS: levETIRAcetam 500 MG/5 ML UDC NG SCH ×2 (09:06→21:05)
[2017-08-09] MEDS: FERROUS SULFATE 300 MG /5ML UDC PO SCH ×2 (09:06→21:04)
[2017-08-09] MEDS: GABAPENTIN 300 MG CAP PO SCH (09:06)
[2017-08-09] MEDS: INSULIN DETEMIR 100 UNITS/ML VIAL SQ SCH ×2 (09:06→21:05)
[2017-08-09] MEDS: ZINC SULFATE 220 MG CAP PO SCH (09:07)
[2017-08-09] MEDS: MULTIVITAMIN TAB PO SCH (09:07)
[2017-08-09] MEDS: SODIUM CHLORIDE 0.9% FLUSH 10 ML FLUSH IV FLUSH SCH ×2 (09:07→21:06)
[2017-08-09] MEDS: COLLAGENASE OINT 30 GM TUBE TOPICAL SCH (09:07)
[2017-08-09] MEDS: AMIODARONE 200 MG TAB PO SCH ×2 (09:07→21:06)
[2017-08-09] MEDS: busPIRone HCL 10 MG TAB PO SCH ×2 (09:07→21:06)
[2017-08-09] MEDS: FAMOTIDINE 40 MG/5 ML LIQ 50 ML BTL NG SCH (09:08)
[2017-08-09] MEDS: ARTIFICIAL TEARS OPTH SOLN 15 ML BTL EACH EYE SCH ×3 (09:08→18:36)
--- NOTE | 2017-08-09 11:18 | HHI.NPPN ---
Subjective General Problems: Anemia, Edema Renal Failure: Acute Interval History She is on CPAP this AM, unresponsive. is at bedside. Renal function is declining. She is non oliguric. (Nicki Zapata) Review of Systems General General Remarks unable to evaluate (Nicki Zapata) Objective Data Data Vital Signs Date Time Temp Pulse Resp B/P (MAP) Pulse Ox O2 Delivery O2 Flow Rate FiO2 08/09/17 10:00 79 08/09/17 09:01 79 133/57 (82) 100 08/09/17 09:00 77 08/09/17 08:17 100 35 08/09/17 08:01 97.9 77 133/58 (83) 96 08/09/17 08:00 77 08/09/17 07:01 80 141/58 (85) 100 08/09/17 07:00 80 08/09/17 06:01 82 158/63 (94) 100 08/09/17 06:00 82 08/09/17 05:00 74 94/46 (62) 99 08/09/17 04:18 95 35 08/09/17 04:00 69 08/09/17 04:00 97.5 69 95/45 (62) 99 08/09/17 04:00 97.5 08/09/17 02:12 99 Oxyhood 35 08/09/17 02:00 96 08/09/17 00:00 97 08/09/17 00:00 98.1 97 140/63 (88) 96 08/08/17 22:00 98 08/08/17 20:33 97 T-piece 12.00 40 08/08/17 20:00 97.8 92 112/53 (72) 97 08/08/17 20:00 92 08/08/17 18:00 93 08/08/17 16:00 92 08/08/17 16:00 99.4 92 18 117/54 (75) 100 08/08/17 14:00 93 08/08/17 12:00 99.2 94 22 114/56 (75) 100 08/08/17 12:00 94 (Nicki Zapata) -: 08/09/17 0655 08/09/17 0655 Tubes & Lines: [place] Tubes & Lines Comment dobhoff, trach (Nicki Zapata B. ELECTRICAL CONTACTS ADJUSTER) Physical Exam General Appearance: Comfortable, Obese, Malnourished Appearance Remarks chronically ill appearing (Zev Zapataon B. ELECTRICAL CONTACTS ADJUSTER) Eyes Eye Exam: Pupils Equal (Zev Zapataon B. ELECT[employer]TACTS ADJUSTER) Throat Throat Exam: Oral Mucosa [place] & Moist (Zev Zapataon B. ELECT[employer] CONTACTS ADJUSTER) Neck Neck Exam: Neck Supple (Zev Zapataon B. ELECT[employer]ICAL CONTACTS ADJUSTER) Pulmonary Resp Exam: Clear Bilaterally, No Distress, Diminished Breath Sounds Resp Remarks trach (Zev Zapataon B. [employer]LECT[employer]TACTS ADJUSTER) Cardiology CV Exam: Regular, Normal Sinus Rhythm (Zev Zapataon B. ELECT[employer]ICAL CONTACTS ADJUSTER) Gastrointestinal/Abdomen GI Exam: Soft, Non-Tender (Zev Zapataon B. ELECT[employer]ICAL [employer]TACTS ADJUSTER) Musculoskeletal MS Exam: Unable to Ambulate (Zev Zapataon B. ELECT[employer]ICAL CONTACTS ADJUSTER) Integumentary Skin Exam: Warm, Dry (Zev Zapataon B. ELECT[employer]TACTS ADJUSTER) Extremeties Extremities Exam: Pedal Pulses Palpable, Moderate Edema, Pitting Edema, Dependent Edema (Zev Zapataon B. ELECT[employer]ICAL CONTACTS ADJUSTER) Neurologic Neuro Exam: Unresponsive (Nicki Zapata B. [employer]LECT[employer] CONTACTS ADJUSTER) Assessment/Plan Discussed Condition With: Spouse Assessment Summary: Fluid/Volume Overload, Hypertension Problem List: (1) Acute kidney insufficiency ICD Codes: N28.9 - Disorder of kidney and ureter, unspecified Plan: RADHA could be due to allergic interstitial nephritis, although she has also most likey suffered hypoperfusion injury due to hypotension. May have progressed to ATN Renal function is worse today. Diuretics on hold. She is non oliguric. Flush bay frequently. Continue to monitor. Repeat labs in AM. Avoid hypotension.t. Avoid nephrotoxic agents. Renally dose if appropriate. Due to multiple comorbidities, she is not a candidate for dialysis, will not do well. D/W . (2) Hyperkalemia ICD Codes: E87.5 - Hyperkalemia Plan: Improved. Continue to monitor. (3) Acute respiratory failure with hypoxia and hypercarbia ICD Codes: J96.01 - Acute respiratory failure with hypoxia; J96.02 - Acute respiratory failure with hypercapnia Plan: On CPAP. (4) Hypertension ICD Codes: I10 - Essential (primary) hypertension Plan: BP has improved. Monitor and avoid antihypertensives. (5) Encephalopathy ICD Codes: G93.40 - Encephalopathy, unspecified Plan: Prognosis appears to be poor. (Nicki Zapata) Problem List: (1) Acute kidney insufficiency ICD Codes: N28.9 - Disorder of kidney and ureter, unspecified Plan: RADHA could be due to allergic interstitial nephritis, although she has also most likey suffered hypoperfusion injury due to hypotension. May have progressed to ATN Renal function is worse today. Diuretics on hold. She is non oliguric. Flush bay frequently. Continue to monitor. Repeat labs in AM. Avoid hypotension.t. Avoid nephrotoxic agents. Renally dose if appropriate. Due to multiple comorbidities, she is not a candidate for dialysis, will not do well. D/W . (2) Hyperkalemia ICD Codes: E87.5 - Hyperkalemia Plan: Improved. Continue to monitor. (3) Acute respiratory failure with hypoxia and hypercarbia ICD Codes: J96.01 - Acute respiratory failure with hypoxia; J96.02 - Acute respiratory failure with hypercapnia Plan: On CPAP. (4) Hypertension ICD Codes: I10 - Essential (primary) hypertension Plan: BP has improved. Monitor and avoid antihypertensives. (5) Encephalopathy ICD Codes: G93.40 - Encephalopathy, unspecified Plan: Prognosis appears to be poor. Plan patient was seen and examined. Renal function is worse. Non oliguric. May have AIN or ATN due to hypotension. Poor prognosis. Not a candidate for dialysis. Discussed with patient's . (Kendrick Liriano MD) Nicki Zapata Aug 09, 2017 11:18 Kendrick Liriano MD Aug 09, 2017 15:09
--- NOTE | 2017-08-09 11:25 | HHI.CCPN ---
Subjective Remarks/Hospital Course 07/11: 77-year-old morbidly obese female patient sent in from custodial, due to increased lethargy for the last 2 days, hypoglycemia early in the day with sugars of 44, given glucagon, chest x-ray showing a pneumonia according to facility staff, EMS noted the patient was fairly disoriented, GCS 6, and started bag valve masking her because of respiratory distress and hypoxia with sats in the 87% range despite oxygenation. Patient was brought in bag-valve- mask in progress and was immediately intubated in the emergency department by ED attending. 07/12: Sedated, orally intubated on mechanical ventilation. 07/13 Patient is sedated with Fentanyl and intubated. Afebrile. 07/14 No events overnight, Sedated with Fentanyl and Versed. Afebrile. Failed CPAP trials yesterday. 07/15 No events overnight. Sedated and intubated. ABG on CPAP yesterday showed resp acidosis with PH 7.22 and CO2: 58 07/16 Patient remains sedated and intubated 07/17. No events overnight. Remains sedated and intubated 07/18 Patient remains intubated off sedation. Afebrile. 07/19 Patient s/p extubation yesterday on BIPAP overnight. Awake. ABG last night showed resp acidosis with PH: 7.24, pCO2: 66 07/20 Patient was reintubated yesterday for resp failure. Sedated and intubated. Afebrile. 07/21: new HCAP with GNRs in sputum. persistent respiratory failure. likely will require long-term ventilation and slow wean. will consult general surgery for re-do trach and gastric access. 07/22: no changes. no improvements. gen surgery planning PEG/Trach next week. 07/23: sputum growing enterobacter; now on Cefepime per ID. neuro exam still stable, but fails weaning trials quickly. 07/24: no changes. still failing cpap and weaning trials. CT abd/pelvis done at gen surg request without overt abscess at prior peg site. 07/25: s/p trach today. doing well. still failing cpap. approved for LTAC. surgical contra-indication to PEG placement with induration at old PEG site: will use DHT for enteral access and tube feeds. ID giving final recs for duration of therapy. stable for discharge to LTAC when bed available. 07/26 No events overnight. Patient was rejected by [facility] this morning per insurance case manager. Afebrile. 07/27 Patient is sedated with Diprivan and intubated. Afebrile. 07/28 No events overnight. Off sedation. On ventilator via trach. 07/29 No events overnight. Tolerated CPAP for most f day yesterday. Afebrile. 07/30: Remains on mechanical ventilation via tracheostomy. Drowsy/ encephalopathic 07/31: Remains encephalopathic, on mechanical ventilation via tracheostomy. Received 1 unit PRBCs yesterday. No melena or rectal bleeding noted. 08/01: Remains encephalopathic, on mechanical ventilation via tracheostomy. Daily C Pap trials ongoing. Neurologic status remains poor. 08/02: no improvements, no changes. does not meet inpatient criteria, but funding problems prevent appropriate placement. overall prognosis very poor. unlikely that she will survive this medical illness. 08/03: continues without significant changes or improvements. 08/04: Remains encephalopathic, on mechanical ventilation via tracheostomy. Potassium elevated. Ordered Kayexalate. 08/05: Remains encephalopathic, on mechanical ventilation via tracheostomy. Potassium levels coming down. 08/06: Remains encephalopathic on mechanical ventilation via tracheostomy. Tolerating tube feeds. Daily C Pap trials 08/07: Patient awake this a.m., following commands answering yes and no questions. The patient remain on CPAP yesterday for an extended period of time. Plan to begin trach collar trials this a.m.. Patient noted 1 g/dl drop in hemoglobin repeat hemoglobin pending. 08/08: Tmax 99.6. Hemoglobin stabilized. The patient was initiated on T piece trials yesterday morning and sustained T piece trials for greater than 12 hours yesterday. Patient placed back on PRN antianxiety meds Xanax, states she is anxious. T piece trials reinitiated this a.m. Of patient noted to have elevated glucose levels persistent. Levemir 5 units subcutaneous twice a day hemoglobin A1c pending. Creatinine noted to be worsening nephrology is following. Tolerating tube feeds. 08/09: Patient tolerated T piece trials for approximately 14 hours, before returning to CPAP. The patient continues on CPAP 03/10.35. The patient is notably lethargic this a.m., receiving Dilaudid 1 dose last evening, will continue to monitor. Frequency narcotic has been decreased. Creatinine continues to worsen, discussed with nephrology Dr. Elder patient is a poor candidate for hemodialysis. Palliative care reconsulted for evaluation and defining goals of care. Objective Vital Signs Date Time Temp Pulse Resp B/P (MAP) Pulse Ox O2 Delivery O2 Flow Rate FiO2 08/09/17 10:00 79 08/09/17 09:01 133/57 (82) 100 08/09/17 08:17 35 08/09/17 08:01 97.9 08/09/17 02:12 Oxyhood 08/08/17 20:33 12.00 08/08/17 16:00 18 Intake and Output 08/09/17 08/09/17 08/09/17 07:59 15:59 23:59 Intake Total 741 ml Output Total 300 ml Balance 441 ml Result Diagram: 08/09/17 0655 08/09/17 0655 Imaging Last Impressions Abdomen X-Ray 08/04/17 0000 Signed Impressions: Service Date/Time: Friday, August 04, 2017 22:47 - CONCLUSION: Benign-appearing abdomen. Dobbhoff feeding tube tip in the mid stomach. Charlie Norris MD Chest X-Ray 07/30/17 0000 Signed Impressions: Service Date/Time: Sunday, July 30, 2017 02:49 - CONCLUSION: Probable mild CHF. Aldair Ziegler MD Abdomen/Pelvis CT 07/24/17 0000 Signed Impressions: Service Date/Time: Monday, July 24, 2017 14:57 - CONCLUSION: Pleural effusion and atelectasis right greater than left. Bowel gas pattern is unremarkable. No evidence of an abscess. Some induration anterior abdominal wall with some possible early fluid collection inferiorly within the lower pannus. Jame Preciado MD Head CT 07/11/17 1827 Signed Impressions: Service Date/Time: Tuesday, July 11, 2017 21:23 - CONCLUSION: No acute intracranial abnormality Jaden Clark MD Last Impressions Abdomen X-Ray 07/25/17 0000 Signed Impressions: Service Date/Time: Tuesday, July 25, 2017 17:34 - CONCLUSION: Dobbhoff catheter tip in the distal stomach. Jasen Delvalle MD Abdomen/Pelvis CT 12/19/17 0000 Signed Impressions: Service Date/Time: Monday, July 24, 2017 14:57 - CONCLUSION: Pleural effusion and atelectasis right greater than left. Bowel gas pattern is unremarkable. No evidence of an abscess. Some induration anterior abdominal wall with some possible early fluid collection inferiorly within the lower pannus. Jame Preciado MD Chest X-Ray 07/21/17 0600 Signed Impressions: Service Date/Time: Friday, July 21, 2017 03:13 - CONCLUSION: Nasogastric tube now in place with the tip below the [id number] of the radiograph. No significant interval change in bilateral pulmonary opacity. Differential diagnosis includes pulmonary edema and infection. Angelito Lovett MD Head CT 07/11/17 1827 Signed Impressions: Service Date/Time: Tuesday, July 11, 2017 21:23 - CONCLUSION: No acute intracranial abnormality Jaden Clark MD Objective Remarks GENERAL: Morbidly obese elderly female s/p trach, sleeping SKIN: Warm and dry. HEAD: Normocephalic. EYES: No scleral icterus. No injection or drainage. NECK: trachea midline. trach in place CARDIOVASCULAR: Regular rate and rhythm. RESPIRATORY: on mechanical ventilation via tracheostomy, air entry decreased bilaterally at bases, scattered rhonchi. GASTROINTESTINAL: Abdomen soft, non-tender, nondistended. left non-healing ulcer area from prior PEG site. MUSCULOSKELETAL: No cyanosis, or peripheral edema 2+. Neuro: Alert and oriented following commands x 4, on mechanical ventilation via tracheostomy A/P Assessment and Plan Assessment: 77yF with morbid obesity and recurrent healthcare associated pneumonia and hypoxic respiratory failure. s/p trach 07/25. contra-indicated for PEG given recent peg site induration. will use DHT for long-term enteral nutrition. no placement plan at this time. Our with worsening renal failure, and is not a candidate for hemodialysis therapy Plan Neuro: metabolic encephalopathy Seizure disorder Neuropathy Anxiety disorder Off sedation. Monitor neuro status. On Keppra 500mg Q12 oxycodone 5mg po q4h prn for pain Xanax 0.25 every 6 hours when necessary, patient previously on Xanax 0.5 every 6 hours we'll continue to monitor. Pulm: Acute hypoxic and hypercarbic Respiratory failure Recurrent healthcare associated pneumonia Reintubated 07/19 Continue with vent support keep sat >92% Bronchodilators, ICU vent bundle. SBT daily as lisa s/p trach 07/[address] Srinivas arias, [facility]. Continue CPAP trials and attempt trach collar trials Trach collar trials initiated 08/07/17 CV: History of hypertension Monitor HR and BP keep MAP>65mmHg Amiodarone 200mg BID 2d echo 07/20: normal biventricular function, EF 60%, RVSP 47 mmHg. : Acute kidney injury Free water deficit Monitor renal function, electrolytes replacement as needed. Ordered Kayexalate for hyperkalemia. Nephrology consulted in view of rising BUN creatinine. GI: Morbid Obesity Acute protein calorie malnutrition- moderate On tube feeds- Nepro with goal rate 65ml/hr, On roly Colace, Lactulose for bowel regimen. On Reglan 5mg IV Q8 PRN ICU electrolyte protocol ID: Recurrent HCAP pneumonia- resolved. Urinary tract infection- resolved. off abx. monitor clinically.. Urine cx: 07/11: Kleb ESBL, Citrobacter. Repeat urine cx 07/18 - Kirsten Albicans sputum cx: Enterobacter ID following. Heme: Anemia secondary to chronic disease Monitor CBC, on Ferrous sulfate and Folic acid Hep PLT ab -negative 1 unit PRBCs ordered on 07/30 for hemoglobin 7.2, no evidence of melena or rectal bleeding. Endo: Hypothyroidism Hyperglycemia of Critical illness SSI medium scale for glycemic control Obtain hemoglobin A1c /3 begin Levemir 5 units SQ BID GI prophylaxis- on Pepcid DVT prophylaxis- Heparin SQ Dispo: Awaiting placement. Patient was rejected by [facility] for not enough medicare days left. will look into vent-capable SNF facilities. does not meet inpatient criteria. consulted palliative care to assist with deciding goals of therapy as terminal operations manager prognosis appears poor. Patient's renal function continues to worsen, patient will not do well on hemodialysis. Palliative Care has been consulted and also following case. Level 3 Discussed with MEAL TEMPERER (Dasia) at bedside Physician Gianna Jeff MD Aug 09, 2017 11:25
[2017-08-09] MEDS: HYDROmorphone HCL PF 2 MG/ML VIAL IV PUSH PRN (15:35)
[2017-08-09] MEDS ORDERED: PILL SPLITTER OTHER PRN (16:30)
[2017-08-09] MEDS: AMITRIPTYLINE HCL 10 MG TAB PO SCH (21:06)
[2017-08-09 22:05] LABS: HEMOGLOBIN A1C 5.3 % (4.3-6.0)
[2017-08-10] VITALS (20 sets, daily range): BP systolic 111–144; BP diastolic 51–63; PULSE 64–86; RESP 18–20; TEMP 97.6–98.2; O2SAT 68–100
[2017-08-10] MEDS: RESP: ALBUTEROL 2.5 MG/IPRATROPIUM 0.5 MG NEB (SCH) NEB ×4 (03:18→22:08)
[2017-08-10] MEDS: CHLORHEXIDINE GLUCONATE 2 % 1 PACK (2 CLOTHS) TOP SCH (04:00)
[2017-08-10] MEDS: INSULIN NovoLIN REGULAR SUPPLEMENTAL SCALE SQ SCH ×4 (04:12→22:00)
[2017-08-10] MEDS: HYDROmorphone HCL PF 2 MG/ML VIAL IV PUSH PRN ×2 (04:13→20:05)
[2017-08-10] MEDS: HEPARIN SODIUM - SQ 10,000 UNITS/ML VIAL SQ SCH ×3 (05:10→20:15)
[2017-08-10] MEDS: LEVOTHYROXINE SODIUM 25 MCG TAB PO SCH (05:10)
[2017-08-10 05:36] LABS: HEMATOCRIT 24.2 % (35.0-46.0); HEMOGLOBIN 7.9 GM/DL (11.6-15.3); MEAN CELL VOLUME 98.9 FL (80.0-100.0); MEAN CORPUSCULAR HEMOGLOBIN 32.2 PG (27.0-34.0); MEAN CORPUSCULAR HGB CONC 32.5 % (32.0-36.0); MEAN PLATELET VOLUME 9.7 FL (7.0-11.0); PLATELET COUNT 182 TH/MM3 (150-450); RED BLOOD COUNT 2.45 MIL/MM3 (4.00-5.30); RED CELL DISTRIBUTION WIDTH 18.2 % (11.6-17.2); WHITE BLOOD COUNT 5.8 TH/MM3 (4.0-11.0)
[2017-08-10 05:51] LABS: BICARBONATE 30.1 MEQ/L (21.0-32.0); CALCIUM 9.8 MG/DL (8.5-10.1); CREATININE 2.59 MG/DL (0.50-1.00); MAGNESIUM 3.2 MG/DL (1.5-2.5); PHOSPHORUS 5.2 MG/DL (2.5-4.9)
[2017-08-10] MEDS: ARTIFICIAL TEARS OPTH SOLN 15 ML BTL EACH EYE SCH ×3 (08:07→16:51)
[2017-08-10] MEDS: GABAPENTIN 300 MG CAP PO SCH (08:09)
[2017-08-10] MEDS: COLLAGENASE OINT 30 GM TUBE TOPICAL SCH (08:09)
[2017-08-10] MEDS: DOCUSATE SODIUM 50 MG/SENNA 8.6 MG TAB PO SCH ×2 (08:09→20:14)
[2017-08-10] MEDS: FERROUS SULFATE 300 MG /5ML UDC PO SCH ×2 (08:09→20:14)
[2017-08-10] MEDS: FOLIC ACID 1 MG TAB PO SCH (08:09)
[2017-08-10] MEDS: AMIODARONE 200 MG TAB PO SCH ×2 (08:09→20:13)
[2017-08-10] MEDS: FAMOTIDINE 20 MG TAB NG SCH ×2 (08:09→20:13)
[2017-08-10] MEDS: levETIRAcetam 500 MG/5 ML UDC NG SCH ×2 (08:09→20:13)
[2017-08-10] MEDS: MULTIVITAMIN TAB PO SCH (08:09)
[2017-08-10] MEDS: ZINC SULFATE 220 MG CAP PO SCH (08:09)
[2017-08-10] MEDS: LACTULOSE SYRUP 20 GM/30 ML CUP PO SCH ×3 (08:09→16:51)
[2017-08-10] MEDS: ASCORBIC ACID 500 MG TAB PO SCH ×2 (08:09→20:14)
[2017-08-10] MEDS: busPIRone HCL 10 MG TAB PO SCH ×2 (08:09→20:13)
[2017-08-10] MEDS: INSULIN DETEMIR 100 UNITS/ML VIAL SQ SCH ×2 (08:10→20:15)
[2017-08-10] MEDS: SODIUM CHLORIDE 0.9% FLUSH 10 ML FLUSH IV FLUSH SCH ×2 (08:12→20:13)
--- NOTE | 2017-08-10 10:51 | HHI.NPPN ---
Subjective General Problems: Anemia, Edema Renal Failure: Acute Interval History Remains unresponsive, on CPAP. Renal function again has declined. Eid became dislodged. (Nicki Zapata) Review of Systems General General Remarks unable to evaluate (Nicki Zapata) Objective Data Data Vital Signs Date Time Temp Pulse Resp B/P (MAP) Pulse Ox O2 Delivery O2 Flow Rate FiO2 08/10/17 10:21 99 35 08/10/17 07:25 35 08/10/17 07:25 100 35 08/10/17 06:00 73 08/10/17 04:00 73 08/10/17 04:00 97.7 73 18 133/59 (83) 100 08/10/17 03:19 100 35 08/10/17 02:00 73 08/10/17 00:00 98.0 74 20 132/62 (85) 99 08/10/17 00:00 74 08/09/17 23:40 100 35 08/09/17 22:00 78 08/09/17 20:00 97.6 72 20 122/56 (78) 98 08/09/17 20:00 72 08/09/17 19:49 99 35 08/09/17 18:45 78 08/09/17 18:30 79 08/09/17 18:15 78 08/09/17 18:00 77 08/09/17 18:00 77 114/51 (72) 100 08/09/17 17:05 100 T-piece 7.00 50 08/09/17 17:01 69 98/42 (60) 96 08/09/17 17:00 69 08/09/17 16:01 98.9 72 108/45 (66) 93 08/09/17 16:00 72 08/09/17 15:01 73 123/53 (76) 100 08/09/17 15:00 73 08/09/17 14:00 80 136/60 (85) 100 08/09/17 14:00 80 08/09/17 13:01 72 116/51 (72) 100 08/09/17 13:00 72 08/09/17 12:45 97.8 74 128/56 (80) 100 08/09/17 12:00 73 08/09/17 11:40 100 35 08/09/17 11:00 74 (Nicki Zapata) -: 08/10/17 0439 08/10/17 0439 Tubes & Lines: Eid Tubes & Lines Comment ivelisse tijerina (Nicki Zapata) Physical Exam General Appearance: Comfortable, Obese, Malnourished Appearance Remarks chronically ill appearing (Nicki Zapata) Eyes Eye Exam: Pupils Equal (Nicki Zapata) Throat Throat Exam: Oral Mucosa [place] & Moist (Nicki Zapata [employer]EV[employer]) Neck Neck Exam: Neck Supple (Nicki Zapata) Pulmonary Resp Exam: Clear Bilaterally, No Distress, Diminished Breath Sounds Resp Remarks ivelisse (Nikci Zapata) Cardiology CV Exam: Regular, Normal Sinus Rhythm (Nicki Zapata) Gastrointestinal/Abdomen GI Exam: Soft, Non-Tender (Nicki Zapata) Musculoskeletal MS Exam: Unable to Ambulate (Nicki Zapata) Integumentary Skin Exam: Warm, Dry (Nicki Zapata) Extremeties Extremities Exam: Pedal Pulses Palpable, Moderate Edema, Pitting Edema, Dependent Edema (Nicki Zapata) Neurologic Neuro Exam: Unresponsive, Sedated (Nicki Zapata) Assessment/Plan Assessment Summary: RADHA/Acute Renal Failure, Fluid/Volume Overload, Hypertension Problem List: (1) Acute kidney insufficiency ICD Codes: N28.9 - Disorder of kidney and ureter, unspecified Plan: RADHA could be due to allergic interstitial nephritis, although she has also most likey suffered hypoperfusion injury due to hypotension. May have progressed to ATN Renal function is stable compared to yesterday.. She is non oliguric. Eid is out currently 10 kg weight gain. Still with fluid overload. Restart Lasix 40 BID. x 24 hrs and monitor. Repeat labs in AM. Avoid hypotension. Avoid nephrotoxic agents. Renally dose if appropriate. Due to multiple comorbidities, she is not a candidate for dialysis, will not do well. Palliative to meet with family. (2) Hyperkalemia ICD Codes: E87.5 - Hyperkalemia Plan: Improved. Continue to monitor. (3) Acute respiratory failure with hypoxia and hypercarbia ICD Codes: J96.01 - Acute respiratory failure with hypoxia; J96.02 - Acute respiratory failure with hypercapnia Plan: On CPAP, trach. (4) Hypertension ICD Codes: I10 - Essential (primary) hypertension Plan: BP has improved. Monitor and avoid antihypertensives. (5) Encephalopathy ICD Codes: G93.40 - Encephalopathy, unspecified Plan: Prognosis appears to be poor. (Nicki Zapata) Problem List: (1) Acute kidney insufficiency ICD Codes: N28.9 - Disorder of kidney and ureter, unspecified Plan: RADHA could be due to allergic interstitial nephritis, although she has also most likey suffered hypoperfusion injury due to hypotension. May have progressed to ATN Renal function is stable compared to yesterday.. She is non oliguric. Eid is out currently 10 kg weight gain. Still with fluid overload. Restart Lasix 40 BID. x 24 hrs and monitor. Repeat labs in AM. Avoid hypotension. Avoid nephrotoxic agents. Renally dose if appropriate. Due to multiple comorbidities, she is not a candidate for dialysis, will not do well. Palliative to meet with family. (2) Hyperkalemia ICD Codes: E87.5 - Hyperkalemia Plan: Improved. Continue to monitor. (3) Acute respiratory failure with hypoxia and hypercarbia ICD Codes: J96.01 - Acute respiratory failure with hypoxia; J96.02 - Acute respiratory failure with hypercapnia Plan: On CPAP, trach. (4) Hypertension ICD Codes: I10 - Essential (primary) hypertension Plan: BP has improved. Monitor and avoid antihypertensives. (5) Encephalopathy ICD Codes: G93.40 - Encephalopathy, unspecified Plan: Prognosis appears to be poor. Plan patient was seen and examined. Renal function is about the same. Lasix restarted. Prognosis is poor. Suggest hospice. No immediate need for dialysis. (Kendrick Liriano MD) Nicki Zapata Aug 10, 2017 10:51 Kendrick Liriano MD Aug 10, 2017 14:08
[2017-08-10] MEDS ORDERED: FUROSEMIDE 40 MG/4 ML VIAL IV PUSH ONE (11:00)
--- NOTE | 2017-08-10 16:32 | HHI.CCPN ---
Subjective Remarks/Hospital Course 07/11: 77-year-old morbidly obese female patient sent in from [facility], due to increased lethargy for the last 2 days, hypoglycemia early in the day with sugars of 44, given glucagon, chest x-ray showing a pneumonia according to facility staff, EMS noted the patient was fairly disoriented, GCS 6, and started bag valve masking her because of respiratory distress and hypoxia with sats in the 87% range despite oxygenation. Patient was brought in bag-valve- mask in progress and was immediately intubated in the emergency department by ED attending. 07/12: Sedated, orally intubated on mechanical ventilation. 07/13 Patient is sedated with Fentanyl and intubated. Afebrile. 07/14 No events overnight, Sedated with Fentanyl and Versed. Afebrile. Failed CPAP trials yesterday. 07/15 No events overnight. Sedated and intubated. ABG on CPAP yesterday showed resp acidosis with PH 7.22 and CO2: 58 07/16 Patient remains sedated and intubated 07/17. No events overnight. Remains sedated and intubated 07/18 Patient remains intubated off sedation. Afebrile. 07/19 Patient s/p extubation yesterday on BIPAP overnight. Awake. ABG last night showed resp acidosis with PH: 7.24, pCO2: 66 07/20 Patient was reintubated yesterday for resp failure. Sedated and intubated. Afebrile. 07/21: new HCAP with GNRs in sputum. persistent respiratory failure. likely will require long-term ventilation and slow wean. will consult general surgery for re-do trach and gastric access. 07/22: no changes. no improvements. gen surgery planning PEG/Trach next week. 07/23: sputum growing enterobacter; now on Cefepime per ID. neuro exam still stable, but fails weaning trials quickly. 07/24: no changes. still failing cpap and weaning trials. CT abd/pelvis done at gen surg request without overt abscess at prior peg site. 07/25: s/p trach today. doing well. still failing cpap. approved for LTAC. surgical contra-indication to PEG placement with induration at old PEG site: will use DHT for enteral access and tube feeds. ID giving final recs for duration of therapy. stable for discharge to LTAC when bed available. 07/26 No events overnight. Patient was rejected by [facility] this morning per bilingual patient support caseworker. Afebrile. 07/27 Patient is sedated with Diprivan and intubated. Afebrile. 07/28 No events overnight. Off sedation. On ventilator via trach. 07/29 No events overnight. Tolerated CPAP for most f day yesterday. Afebrile. 07/30: Remains on mechanical ventilation via tracheostomy. Drowsy/ encephalopathic 07/31: Remains encephalopathic, on mechanical ventilation via tracheostomy. Received 1 unit PRBCs yesterday. No melena or rectal bleeding noted. 08/01: Remains encephalopathic, on mechanical ventilation via tracheostomy. Daily C Pap trials ongoing. Neurologic status remains poor. 08/02: no improvements, no changes. does not meet inpatient criteria, but funding problems prevent appropriate placement. overall prognosis very poor. unlikely that she will survive this medical illness. 08/03: continues without significant changes or improvements. 08/04: Remains encephalopathic, on mechanical ventilation via tracheostomy. Potassium elevated. Ordered Kayexalate. 08/05: Remains encephalopathic, on mechanical ventilation via tracheostomy. Potassium levels coming down. 08/06: Remains encephalopathic on mechanical ventilation via tracheostomy. Tolerating tube feeds. Daily C Pap trials 08/07: Patient awake this a.m., following commands answering yes and no questions. The patient remain on CPAP yesterday for an extended period of time. Plan to begin trach collar trials this a.m.. Patient noted 1 g/dl drop in hemoglobin repeat hemoglobin pending. 08/08: Tmax 99.6. Hemoglobin stabilized. The patient was initiated on T piece trials yesterday morning and sustained T piece trials for greater than 12 hours yesterday. Patient placed back on PRN antianxiety meds Xanax, states she is anxious. T piece trials reinitiated this a.m. Of patient noted to have elevated glucose levels persistent. Levemir 5 units subcutaneous twice a day hemoglobin A1c pending. Creatinine noted to be worsening nephrology is following. Tolerating tube feeds. 08/09: Patient tolerated T piece trials for approximately 14 hours, before returning to CPAP. The patient continues on CPAP 03/10.35. The patient is notably lethargic this a.m., receiving Dilaudid 1 dose last evening, will continue to monitor. Frequency narcotic has been decreased. Creatinine continues to worsen, discussed with nephrology Dr. Elder patient will not hemodialysis. Palliative care reconsulted for evaluation and defining goals of care. 08/10: Afebrile .Patient continues on CPAP, responsive. Patient a poor candidate for hemodialysis creatinine continues to worsen. Discussion with palliative care team has been made patient DNR status today following sabianist. Objective Vital Signs Date Time Temp Pulse Resp B/P (MAP) Pulse Ox O2 Delivery O2 Flow Rate FiO2 08/10/17 16:17 100 35 08/10/17 14:00 64 08/10/17 12:00 97.6 08/10/17 11:50 T-piece 8.00 08/10/17 04:00 18 133/59 (83) Intake and Output 08/10/17 08/10/17 08/11/17 08:00 16:00 00:00 Intake Total 920 ml Output Total 250 ml Balance 670 ml Result Diagram: 08/10/17 0439 08/10/17 0439 Imaging Last Impressions Abdomen X-Ray 08/04/17 0000 Signed Impressions: Service Date/Time: Friday, August 04, 2017 22:47 - CONCLUSION: Benign-appearing abdomen. Dobbhoff feeding tube tip in the mid stomach. Charlie Norris MD Chest X-Ray 07/30/17 0000 Signed Impressions: Service Date/Time: Sunday, July 30, 2017 02:49 - CONCLUSION: Probable mild CHF. K. Jhonny Ziegler MD Abdomen/Pelvis CT 07/24/17 0000 Signed Impressions: Service Date/Time: Monday, July 24, 2017 14:57 - CONCLUSION: Pleural effusion and atelectasis right greater than left. Bowel gas pattern is unremarkable. No evidence of an abscess. Some induration anterior abdominal wall with some possible early fluid collection inferiorly within the lower pannus. Jame Preciado MD Head CT 07/11/17 1827 Signed Impressions: Service Date/Time: Tuesday, July 11, 2017 21:23 - CONCLUSION: No acute intracranial abnormality Jaden Clark MD Last Impressions Abdomen X-Ray 07/25/17 0000 Signed Impressions: Service Date/Time: Tuesday, July 25, 2017 17:34 - CONCLUSION: Dobbhoff catheter tip in the distal stomach. Jasen Delvalle MD Abdomen/Pelvis CT 07/24/17 0000 Signed Impressions: Service Date/Time: Monday, July 24, 2017 14:57 - CONCLUSION: Pleural effusion and atelectasis right greater than left. Bowel gas pattern is unremarkable. No evidence of an abscess. Some induration anterior abdominal wall with some possible early fluid collection inferiorly within the lower pannus. Jame Preciado MD Chest X-Ray 07/21/17 0600 Signed Impressions: Service Date/Time: Friday, July 21, 2017 03:13 - CONCLUSION: Nasogastric tube now in place with the tip below the [id number] of the radiograph. No significant interval change in bilateral pulmonary opacity. Differential diagnosis includes pulmonary edema and infection. Angelito Lovett MD Head CT 07/11/17 1827 Signed Impressions: Service Date/Time: Tuesday, July 11, 2017 21:23 - CONCLUSION: No acute intracranial abnormality Jaden Clark MD Objective Remarks GENERAL: Morbidly obese elderly female s/p trach, awake nodding head responsive to yes and no questions SKIN: Warm and dry. HEAD: Normocephalic. EYES: No scleral icterus. No injection or drainage. NECK: trachea midline. trach in place CARDIOVASCULAR: Regular rate and rhythm. RESPIRATORY: on mechanical ventilation via tracheostomy, air entry decreased bilaterally at bases, scattered rhonchi. GASTROINTESTINAL: Abdomen soft, non-tender, nondistended. left non-healing ulcer area from prior PEG site. MUSCULOSKELETAL: No cyanosis, or peripheral edema 2+. Neuro: Alert and oriented following commands x 4, on mechanical ventilation via tracheostomy A/P Assessment and Plan Assessment: 77yF with morbid obesity and recurrent healthcare associated pneumonia and hypoxic respiratory failure. s/p trach 07/25. contra-indicated for PEG given recent peg site induration. will use DHT for long-term enteral nutrition. no placement plan at this time. Our with worsening renal failure, and is not a candidate for hemodialysis therapy Plan Neuro: metabolic encephalopathy Seizure disorder Neuropathy Anxiety disorder Off sedation. Monitor neuro status. On Keppra 500mg Q12 oxycodone 5mg po q4h prn for pain Xanax 0.25 every 6 hours when necessary, patient previously on Xanax 0.5 every 6 hours we'll continue to monitor. Pulm: Acute hypoxic and hypercarbic Respiratory failure Recurrent healthcare associated pneumonia Reintubated 07/19 Continue with vent support keep sat >92% Bronchodilators, ICU vent bundle. SBT daily as lisa s/p trach 07/[address] Srinivas arias, [facility] care. Continue CPAP trials and attempt trach collar trials Trach collar trials initiated 08/07/17 CV: History of hypertension Monitor HR and BP keep MAP>65mmHg Amiodarone 200mg BID 2d echo 07/20: normal biventricular function, EF 60%, RVSP 47 mmHg. : Acute kidney injury Free water deficit Monitor renal function, electrolytes replacement as needed. Nephrology consulted in view of rising BUN creatinine. Patient is a poor candidate for hemodialysis, per nephrology, she would not do well on hemodialysis secondary to her multiple comorbidities GI: Morbid Obesity Acute protein calorie malnutrition- moderate On tube feeds- Nepro with goal rate 65ml/hr, On roly Colace, Lactulose for bowel regimen. On Reglan 5mg IV Q8 PRN ICU electrolyte protocol ID: Recurrent HCAP pneumonia- resolved. Urinary tract infection- resolved. off abx. monitor clinically.. Urine cx: 07/11: Kleb ESBL, Citrobacter. Repeat urine cx 07/18 - Kirsten Albicans sputum cx: Enterobacter ID following. Heme: Anemia secondary to chronic disease Monitor CBC, on Ferrous sulfate and Folic acid Hep PLT ab -negative 1 unit PRBCs ordered on 07/30 for hemoglobin 7.2, no evidence of melena or rectal bleeding. Endo: Hypothyroidism Hyperglycemia of Critical illness SSI medium scale for glycemic control Obtain hemoglobin A1c /3 Levemir 5 units SQ BID GI prophylaxis- on Pepcid DVT prophylaxis- Heparin SQ Dispo: Awaiting placement. Patient was [facility] by [facility] for not enough medicare days left. will look into vent-capable SNF facilities. does not meet inpatient criteria. 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 The patient's renal function continues to worsen. The patient is deemed a poor candidate for dialysis that she would not do well due complex medical condition with multiple comorbidities. Palliative Care has been consulted and patient was made DNR status today Level 3 Discussed with [employer] at bedside and Palliative Care [employer] membership advisors Ms. Reyes. Physician Gianna Jeff MD Aug 10, 2017 16:32
[2017-08-10] MEDS: FUROSEMIDE 40 MG/4 ML VIAL IV PUSH SCH (16:51)
--- NOTE | 2017-08-10 17:20 | HHI.HCPN ---
Reason for visit a. To assist with evaluation and management of symptoms including: Debility , dyspnea, encephalopathy, pain b. To assist medical decision maker(s) with: better understanding of current medical conditions; weighing benefits/burdens of medical treatment options; making medical treatment decisions. . Subjective/Interval History Follow up visit for symptom management and clarification of medical treatment goals. Mrs. Henson is a 76-year-old female with morbid obesity, recurrent HCAP and hypoxic respiratory failure status post tracheostomy on 08/01/2017. Patient was on CPAP this morning but was placed back on mechanical ventilation later today. Follow-up chest x-ray on 07/30/2017 with probable mild CHF. Patient having generalized discomfort as evidenced by restless activity, grimacing. PRN acetaminophen, oxycodone and hydromorphone are available. Patient has required hydromorphone 0.25 mg IV 2 in the past 24 hours. Patient opens eyes only briefly to verbal stimuli. Does not respond verbally, does not follow commands. Hydromorphone and alprazolam dose/frequency were decreased on 2017 due to increased lethargy and unresponsiveness Unable to place PEG tube; patient tolerating artificial nutrition via Dobbhoff. Glucerna 1.5 with goal rate of 65 mL per hour per M.D. Total protein: 2.8, albumin 0.5. Worsening renal function, but there is no immediate need for dialysis.. BUN: 89 , creatinine 2.5 now, GFR 18. Hemodialysis is following the patient who is non- oliguric. She has had a 10 pound weight gain. Will restart Lasix 40 mg BID 24 hours and monitor, repeat labs in a.m. Due to patient's multiple comorbid conditions and deconditioned status, she is not a candidate for hemodialysis. . Family/friend interactions Palliative care met with patient's spouse and the family conference room, daughter (Manuela) participated via telephone. Final Inspector Movement Assembly, Morales Riojas, was present for a portion of the discussion. Patient's ongoing decline was discussed, now with deteriorating renal function. Nephrology stating patient is not a candidate for hemodialysis secondary to multiple comorbid conditions. Hospice was discussed, but the family is not ready to consider withdrawing the patient from life support at this time. Patient's status was changed to NO CODE following anabaptism this afternoon. . Advance Directives Advance Directive Specifics Documented care wishes: No known document wishes have been completed. . Objective Vital Signs Date Time Temp Pulse Resp B/P (MAP) Pulse Ox O2 Delivery O2 Flow Rate FiO2 08/10/17 16:17 100 35 08/10/17 16:00 64 08/10/17 16:00 97.6 64 111/51 (71) 100 08/10/17 14:00 64 08/10/17 12:30 68 35 08/10/17 12:00 83 08/10/17 12:00 97.6 08/10/17 11:50 100 T-piece 8.00 40 08/10/17 10:21 99 35 08/10/17 10:00 80 08/10/17 08:00 98.2 08/10/17 07:25 35 08/10/17 07:25 100 35 08/10/17 06:00 73 08/10/17 04:00 73 08/10/17 04:00 97.7 73 18 133/59 (83) 100 08/10/17 03:19 100 35 08/10/17 02:00 73 08/10/17 00:00 98.0 74 20 132/62 (85) 99 08/10/17 00:00 74 08/09/17 23:40 100 35 08/09/17 22:00 78 08/09/17 20:00 97.6 72 20 122/56 (78) 98 08/09/17 20:00 72 08/09/17 19:49 99 35 08/09/17 18:45 78 08/09/17 18:30 79 08/09/17 18:15 78 08/09/17 18:00 77 08/09/17 18:00 77 114/51 (72) 100 08/09/17 17:05 100 T-piece 7.00 50 Intake & Output 08/10/17 08/10/17 07:00 19:00 Intake Total 920 ml Output Total 250 ml Balance 670 ml Tube Feeding 720 ml Tube Irrigant 200 ml Output Urine Total 250 ml # Bowel Movements 0 . Physical Exam CONSTITUTIONAL/GENERAL: This is a morbidly obese, female patient status post tracheostomy on mechanical ventilation TUBES/LINES/DRAINS: Tracheostomy, Dobbhoff, Female external catheter, PIV SKIN: Generalized pallor. Ecchymosis on bilateral upper extremities. HEAD: Atraumatic. Normocephalic. EYES: No scleral icterus. No injection or drainage. Fundi not examined. ENT: Nose without bleeding or purulent drainage. NECK: Trachea midline. Tracheostomy to CPAP CARDIOVASCULAR: Regular rate and rhythm without murmurs, gallops, or rubs. Upper extremities edematous bilaterally RESPIRATORY/CHEST: Status post tracheostomy on mechanical ventilation. Breath sounds coarse, diminished throughout. GASTROINTESTINAL: Protuberant abdomen with nonhealing ulcer from previous PEG tube site. Active bowel sounds 4 GENITOURINARY: Without palpable bladder distension. MUSCULOSKELETAL: Extremities without clubbing or cyanosis. No obvious deformities. Edema NEUROLOGICAL: Patient opens eyes briefly to verbal stimuli. She does not respond to questions; is not follow simple commands. PSYCHIATRIC: Unable to assess due to patient's clinical condition . Diagnostic Tests Laboratory Laboratory Tests Test 08/08/17 04:10 08/08/17 17:06 08/09/17 06:55 08/10/17 04:39 White Blood Count 5.0 TH/MM3 (4.0-11.0) 6.4 TH/MM3 (4.0-11.0) 5.8 TH/MM3 (4.0-11.0) Red Blood Count 2.35 MIL/MM3 (4.00-5.30) 2.33 MIL/MM3 (4.00-5.30) 2.45 MIL/MM3 (4.00-5.30) Hemoglobin 7.5 GM/DL (11.6-15.3) 7.6 GM/DL (11.6-15.3) 7.9 GM/DL (11.6-15.3) Hematocrit 23.2 % (35.0-46.0) 23.0 % (35.0-46.0) 24.2 % (35.0-46.0) Mean Corpuscular Volume 98.7 FL (80.0-100.0) 98.7 FL (80.0-100.0) 98.9 FL (80.0-100.0) Mean Corpuscular Hemoglobin 31.9 PG (27.0-34.0) 32.7 PG (27.0-34.0) 32.2 PG (27.0-34.0) Mean Corpuscular Hemoglobin Concent 32.3 % (32.0-36.0) 33.1 % (32.0-36.0) 32.5 % (32.0-36.0) Red Cell Distribution Width 18.9 % (11.6-17.2) 18.4 % (11.6-17.2) 18.2 % (11.6-17.2) Platelet Count 162 TH/MM3 (150-450) 176 TH/MM3 (150-450) 182 TH/MM3 (150-450) Mean Platelet Volume 9.7 FL (7.0-11.0) 9.8 FL (7.0-11.0) 9.7 FL (7.0-11.0) Blood Urea Nitrogen 79 MG/DL (7-18) 82 MG/DL (7-18) 89 MG/DL (7-18) Creatinine 2.21 MG/DL (0.50-1.00) 2.54 MG/DL (0.50-1.00) 2.59 MG/DL (0.50-1.00) Random Glucose 233 MG/DL (74-106) 271 MG/DL (74-106) 240 MG/DL (74-106) Calcium Level 9.5 MG/DL (8.5-10.1) 9.9 MG/DL (8.5-10.1) 9.8 MG/DL (8.5-10.1) Sodium Level 143 MEQ/L (136-145) 141 MEQ/L (136-145) 140 MEQ/L (136-145) Potassium Level 4.4 MEQ/L (3.5-5.1) 4.7 MEQ/L (3.5-5.1) 4.6 MEQ/L (3.5-5.1) Chloride Level 106 MEQ/L (98-107) 103 MEQ/L (98-107) 101 MEQ/L (98-107) Carbon Dioxide Level 31.5 MEQ/L (21.0-32.0) 30.5 MEQ/L (21.0-32.0) 30.1 MEQ/L (21.0-32.0) Anion Gap 6 MEQ/L (5-15) 8 MEQ/L (5-15) 9 MEQ/L (5-15) Estimat Glomerular Filtration Rate 22 ML/MIN (>89) 18 ML/MIN (>89) 18 ML/MIN (>89) Hemoglobin A1c 5.3 % (4.3-6.0) Phosphorus Level 4.8 MG/DL (2.5-4.9) 5.2 MG/DL (2.5-4.9) Magnesium Level 3.2 MG/DL (1.5-2.5) . Result Diagram: 08/10/17 0439 08/10/17 0439 Procedures 07/11/2017: Intubation 07/11/2017: OGT placement 07/18/2017: Extubation 07/19/2017: Reintubation 07/25/2017: Tracheostomy . Assessment and Plan Disease Oriented Problem List: (1) Metabolic encephalopathy (2) Seizure disorder (3) Neuropathy (4) Acute respiratory failure with hypoxia and hypercarbia (5) HCAP (healthcare-associated pneumonia) (6) Hypertension (7) Acute kidney insufficiency (8) Protein calorie malnutrition (9) UTI (urinary tract infection) (10) Hypothyroidism (11) Respiratory distress (12) Pneumonia Symptom Scale: (1) Debility 0-10 Scale: Unable to quantify (2) Dyspnea 0-10 Scale: Unable to quantify (3) Encephalopathy 0-10 Scale: Unable to quantify (4) Pain 0-10 Scale: 8 Comment: Patient reporting intermittent abdominal and back pain, both rated 8 out of 10. Back pain is described as a constant ache that does not radiate. PRN medications are available, being sparingly use. Pertinent Non-Medical Issues Psychosocial: Patient is originally from [place]. She moved to [place] where she met her . Patient has been 2 times. She had 2 children with her first . Her daughter (Manuela) and son (Landon) lives in [place]. Patient has been to her current for approximately 37 years. She worked with Medicare processing claims. Spiritual: Non-practicing Evangelical per spouse Legal: Per [place] statutes, in the absence of written advanced directives healthcare proxy decision-making falls to the patient's . Ethical issues impacting care: No known ethical issues impacting care at this time. . Important Contacts Reji Henson, : [phone] Manuela Kelly: [phone] . Prognosis Patient is a morbidly obese female with recurrent healthcare associated pneumonia, hypoxic respiratory failure and non-healing wounds status post tracheostomy placement. She has had multiple hospitalizations with subsequent LTAC/SNF placement since Dec, 2016. Overall prognosis is very poor; patient will likely not survive this medical illness. . Code Status: Full Code Plan * No CODE * Decision-making: Patient is currently unable to participate in establishment of medical treatment goals given her clinical condition. It is unknown if she will regain capacity. Per [place] statutes, in the absence of written advanced * Discussed patient's case with bedside nurse, Brenda. * Palliative care met with patient's spouse and the family conference room, daughter (Manuela) participated via telephone. Final Inspector Movement Assembly, Morales Riojas, was present for a portion of the discussion. Patient's ongoing decline was discussed, now with deteriorating renal function. Nephrology stating patient is not a candidate for hemodialysis secondary to multiple comorbid conditions. Hospice was discussed, but the family is not ready to consider withdrawing the patient from life support at this time. Patient's status was changed to NO CODE following anabaptism this afternoon. * Symptom management-pain: Patient having generalized discomfort as evidenced by restless activity, grimacing. PRN acetaminophen, oxycodone and hydromorphone are available. Patient has required hydromorphone 0.25 mg IV 2 in the past 24 hours. Hydromorphone dose was decreased secondary to lethargy/ changes in mentation. Palliative care will monitor PRN requirements and make recommendations as indicated. * Symptom management-dyspnea: Patient with recurrent HCAP and hypoxic respiratory failure. Status post tracheostomy on 07/25/2017. Follow-up chest x- ray on 07/30/2017 with probable mild CHF. Tolerating CPAP this morning but is now back on mechanical ventilation. 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 Prior to Dec, 2016 the patient was able to ambulate short distances with a walker. Her states she was otherwise independent for all ADLs. Patient had ongoing hospitalizations and LTAC/SNF recent symptoms 2016. Physical therapy and occupational therapy following. Patient remains dependent for all mobility, ongoing passive ROM exercises. Patient unable to participate secondary to lethargy. Ongoing aggressive goals at this time; patient awaiting placement. However patient was rejected by [facility] because she did not have enough Medicare days left. Will look into vent- capable SNF facilities. It appears there is one in [place]; family is looking into facilities in [place]. * Symptom management-encephalopathy: CT head on 07/11/17 no acute intracranial abnormalities. Deteriorating neurological status. Patient opens eyes only briefly to verbal stimuli. Chest she does not respond to questions; does not follow simple commands * Palliative care will continue to follow this patient throughout her hospitalization to establish trust, assist with symptom management and clarification of medical treatment goals. . Attestation To help prompt me to consider important information that might be impacting today's encounter and assessment, information from prior notes written by myself or my colleagues may have been "brought forward" into today's note. My signature on this note, however, is an attestation that I personally performed the exam, history, and/or decision-making noted today, and, unless otherwise indicated, the interactions with patient, family, and staff as well as the review of records all occurred today. I also attest that the listed assessment and stated plan reflect my best clinical judgment today based on the combination of historical information, prior notes, and today's exam/ interactions. When time spent is documented, it refers only to time spent today by the signer, or if indicated, combined time spent today by collaborating physician/nurse practitioner. . Zo Newell Aug 10, 2017 17:20
[2017-08-10] MEDS: AMITRIPTYLINE HCL 10 MG TAB PO SCH (20:13)
[2017-08-11] VITALS (23 sets, daily range): BP systolic 92–138; BP diastolic 49–62; PULSE 66–89; RESP 18–20; TEMP 97.6–98.2; O2SAT 96–100
[2017-08-11] MEDS: CHLORHEXIDINE GLUCONATE 2 % 1 PACK (2 CLOTHS) TOP SCH (03:00)
[2017-08-11] MEDS: INSULIN NovoLIN REGULAR SUPPLEMENTAL SCALE SQ SCH ×4 (04:00→21:12)
[2017-08-11] MEDS: RESP: ALBUTEROL 2.5 MG/IPRATROPIUM 0.5 MG NEB (SCH) NEB ×2 (04:12→09:39)
[2017-08-11] MEDS: HEPARIN SODIUM - SQ 10,000 UNITS/ML VIAL SQ SCH ×3 (04:21→20:54)
[2017-08-11] MEDS: LEVOTHYROXINE SODIUM 25 MCG TAB PO SCH (05:32)
[2017-08-11] MEDS: FUROSEMIDE 40 MG/4 ML VIAL IV PUSH SCH ×2 (09:00→16:52)
[2017-08-11] MEDS: LACTULOSE SYRUP 20 GM/30 ML CUP PO SCH ×3 (09:16→16:52)
[2017-08-11] MEDS: AMIODARONE 200 MG TAB PO SCH ×2 (09:16→20:53)
[2017-08-11] MEDS: levETIRAcetam 500 MG/5 ML UDC NG SCH ×2 (09:16→20:53)
[2017-08-11] MEDS: busPIRone HCL 10 MG TAB PO SCH ×2 (09:16→20:53)
[2017-08-11] MEDS: GABAPENTIN 300 MG CAP PO SCH (09:16)
[2017-08-11] MEDS: FERROUS SULFATE 300 MG /5ML UDC PO SCH ×2 (09:16→21:11)
[2017-08-11] MEDS: COLLAGENASE OINT 30 GM TUBE TOPICAL SCH (09:17)
[2017-08-11] MEDS: FAMOTIDINE 20 MG TAB NG SCH ×2 (09:17→20:53)
[2017-08-11] MEDS: INSULIN DETEMIR 100 UNITS/ML VIAL SQ SCH ×2 (09:17→21:11)
[2017-08-11] MEDS: ASCORBIC ACID 500 MG TAB PO SCH ×2 (09:17→20:53)
[2017-08-11] MEDS: FOLIC ACID 1 MG TAB PO SCH (09:17)
[2017-08-11] MEDS: DOCUSATE SODIUM 50 MG/SENNA 8.6 MG TAB PO SCH ×2 (09:17→20:53)
[2017-08-11] MEDS: ARTIFICIAL TEARS OPTH SOLN 15 ML BTL EACH EYE SCH ×3 (09:17→16:52)
[2017-08-11] MEDS: ZINC SULFATE 220 MG CAP PO SCH (09:17)
[2017-08-11] MEDS: MULTIVITAMIN TAB PO SCH (09:17)
[2017-08-11] MEDS: SODIUM CHLORIDE 0.9% FLUSH 10 ML FLUSH IV FLUSH SCH ×2 (09:18→21:11)
--- NOTE | 2017-08-11 12:38 | HHI.NPPN ---
Subjective General Problems: Anemia, Edema Renal Failure: Acute Review of Systems General General Remarks unable to evaluate Objective Data Data Vital Signs Date Time Temp Pulse Resp B/P (MAP) Pulse Ox O2 Delivery O2 Flow Rate FiO2 08/11/17 11:54 97 35 08/11/17 11:01 85 08/11/17 10:00 80 98/49 (65) 96 08/11/17 10:00 80 08/11/17 09:07 89 92/62 (72) 99 08/11/17 08:38 35 08/11/17 08:36 97 35 08/11/17 08:01 86 121/58 (79) 99 08/11/17 08:00 85 08/11/17 08:00 88 99 08/11/17 08:00 35 08/11/17 06:00 69 08/11/17 04:07 97 35 08/11/17 04:00 80 08/11/17 04:00 35 08/11/17 04:00 98.0 80 20 122/55 (77) 98 08/11/17 02:00 69 08/11/17 00:14 96 35 08/11/17 00:00 35 08/11/17 00:00 98.2 66 18 110/51 (70) 97 08/11/17 00:00 66 08/10/17 22:00 80 08/10/17 20:48 97 35 08/10/17 20:01 97.9 74 18 144/63 (90) 99 08/10/17 20:00 73 08/10/17 20:00 35 08/10/17 18:00 86 08/10/17 16:17 100 35 08/10/17 16:00 64 08/10/17 16:00 97.6 64 111/51 (71) 100 08/10/17 14:00 64 -: 08/10/17 0439 08/10/17 0439 Tubes & Lines: Eid Tubes & Lines Comment ivelisse tijerina Physical Exam General Appearance: Comfortable, Obese, Malnourished Eyes Eye Exam: Pupils Equal Throat Throat Exam: Oral Mucosa [place] & Moist Neck Neck Exam: Neck Supple Pulmonary Resp Exam: Clear Bilaterally, No Distress, Diminished Breath Sounds Cardiology CV Exam: Regular, Normal Sinus Rhythm Gastrointestinal/Abdomen GI Exam: Soft, Non-Tender Musculoskeletal MS Exam: Unable to Ambulate Integumentary Skin Exam: Warm, Dry Extremeties Extremities Exam: Pedal Pulses Palpable, Moderate Edema, Pitting Edema, Dependent Edema Neurologic Neuro Exam: Unresponsive, Sedated Assessment/Plan Assessment Summary: RADHA/Acute Renal Failure, Fluid/Volume Overload, Hypertension Problem List: (1) Acute kidney insufficiency ICD Codes: N28.9 - Disorder of kidney and ureter, unspecified Plan: RADHA could be due to allergic interstitial nephritis, although she has also most likey suffered hypoperfusion injury due to hypotension. May have progressed to ATN Renal function is stable compared to yesterday.. She is non oliguric. Eid is out currently 10 kg weight gain. Still with fluid overload. Restart Lasix 40 BID. x 24 hrs and monitor. Labs cr 2.8 higher on Lasix 40 mg q 12 UOP 900 Family refused dialysis Avoid hypotension. Avoid nephrotoxic agents. Renally dose if appropriate. Due to multiple comorbidities, she is not a candidate for dialysis, will not do well. Palliative to meet with family. Possible Hospice next week (2) Hyperkalemia ICD Codes: E87.5 - Hyperkalemia Plan: Improved. Continue to monitor. (3) Acute respiratory failure with hypoxia and hypercarbia ICD Codes: J96.01 - Acute respiratory failure with hypoxia; J96.02 - Acute respiratory failure with hypercapnia Plan: On CPAP, trach. (4) Hypertension ICD Codes: I10 - Essential (primary) hypertension Plan: BP has improved. Monitor and avoid antihypertensives. (5) Encephalopathy ICD Codes: G93.40 - Encephalopathy, unspecified Plan: Prognosis appears to be poor. Gail Garcia MD Aug 11, 2017 12:38
[2017-08-11 12:56] LABS: BICARBONATE 29.5 MEQ/L (21.0-32.0); CALCIUM 9.7 MG/DL (8.5-10.1); CREATININE 2.84 MG/DL (0.50-1.00)
--- NOTE | 2017-08-11 15:03 | HHI.CCPN ---
Subjective Remarks/Hospital Course 07/11: 77-year-old morbidly obese female [facility], due to increased lethargy for the last 2 days, hypoglycemia early in the day with sugars of 44, given glucagon, chest x-ray showing a pneumonia according to facility staff, EMS noted the patient was fairly disoriented, GCS 6, and started bag valve masking her because of respiratory distress and hypoxia with sats in the 87% range despite oxygenation. Patient was brought in bag-valve- mask in progress and was immediately intubated in the emergency department by ED attending. 07/12: Sedated, orally intubated on mechanical ventilation. 07/13 Patient is sedated with Fentanyl and intubated. Afebrile. 07/14 No events overnight, Sedated with Fentanyl and Versed. Afebrile. Failed CPAP trials yesterday. 07/15 No events overnight. Sedated and intubated. ABG on CPAP yesterday showed resp acidosis with PH 7.22 and CO2: 58 07/16 Patient remains sedated and intubated 07/17. No events overnight. Remains sedated and intubated 07/18 Patient remains intubated off sedation. Afebrile. 07/19 Patient s/p extubation yesterday on BIPAP overnight. Awake. ABG last night showed resp acidosis with PH: 7.24, pCO2: 66 07/20 Patient was reintubated yesterday for resp failure. Sedated and intubated. Afebrile. 07/21: new HCAP with GNRs in sputum. persistent respiratory failure. likely will require long-term ventilation and slow wean. will consult general surgery for re-do trach and gastric access. 07/22: no changes. no improvements. gen surgery planning PEG/Trach next week. 07/23: sputum growing enterobacter; now on Cefepime per ID. neuro exam still stable, but fails weaning trials quickly. 07/24: no changes. still failing cpap and weaning trials. CT abd/pelvis done at gen surg request without overt abscess at prior peg site. 07/25: s/p trach today. doing well. still failing cpap. approved for LTAC. surgical contra-indication to PEG placement with induration at old PEG site: will use DHT for enteral access and tube feeds. ID giving final recs for duration of therapy. stable for discharge to LTAC when bed available. 07/26 No events overnight. Patient was rejected by [facility] this morning per employment evaluator/case manager. Afebrile. 07/27 Patient is sedated with Diprivan and intubated. Afebrile. 07/28 No events overnight. Off sedation. On ventilator via trach. 07/29 No events overnight. Tolerated CPAP for most f day yesterday. Afebrile. 07/30: Remains on mechanical ventilation via tracheostomy. Drowsy/ encephalopathic 07/31: Remains encephalopathic, on mechanical ventilation via tracheostomy. Received 1 unit PRBCs yesterday. No melena or rectal bleeding noted. 08/01: Remains encephalopathic, on mechanical ventilation via tracheostomy. Daily C Pap trials ongoing. Neurologic status remains poor. 08/02: no improvements, no changes. does not meet inpatient criteria, but funding problems prevent appropriate placement. overall prognosis very poor. unlikely that she will survive this medical illness. 08/03: continues without significant changes or improvements. 08/04: Remains encephalopathic, on mechanical ventilation via tracheostomy. Potassium elevated. Ordered Kayexalate. 08/05: Remains encephalopathic, on mechanical ventilation via tracheostomy. Potassium levels coming down. 08/06: Remains encephalopathic on mechanical ventilation via tracheostomy. Tolerating tube feeds. Daily C Pap trials 08/07: Patient awake this a.m., following commands answering yes and no questions. The patient remain on CPAP yesterday for an extended period of time. Plan to begin trach collar trials this a.m.. Patient noted 1 g/dl drop in hemoglobin repeat hemoglobin pending. 08/08: Tmax 99.6. Hemoglobin stabilized. The patient was initiated on T piece trials yesterday morning and sustained T piece trials for greater than 12 hours yesterday. Patient placed back on PRN antianxiety meds Xanax, states she is anxious. T piece trials reinitiated this a.m. Of patient noted to have elevated glucose levels persistent. Levemir 5 units subcutaneous twice a day hemoglobin A1c pending. Creatinine noted to be worsening nephrology is following. Tolerating tube feeds. 08/09: Patient tolerated T piece trials for approximately 14 hours, before returning to CPAP. The patient continues on CPAP 03/10.35. The patient is notably lethargic this a.m., receiving Dilaudid 1 dose last evening, will continue to monitor. Frequency narcotic has been decreased. Creatinine continues to worsen, discussed with nephrology Dr. Elder patient is a poor candidate for hemodialysis. Palliative care reconsulted for evaluation and defining goals of care. 08/10: Afebrile .Patient continues on CPAP, responsive. Creatinine continues to worsen, it is felt that the patient will not do well on hemodialysis given her multiple comorbidities. Discussion with palliative care team has been made patient DNR status today following restorationist. 08/11: No acute events overnight. Creatinine continues to rise. is considering possibly Hospice, in the near future. Groin area erythematous and nystatin powder added to medication regimen. Eid maintained to prevent further skin breakdown and measure adequate urinary output. Objective Vital Signs Date Time Temp Pulse Resp B/P (MAP) Pulse Ox O2 Delivery O2 Flow Rate FiO2 08/11/17 14:00 80 99 08/11/17 13:01 103/49 (67) 08/11/17 12:00 35 08/11/17 04:00 98.0 20 08/10/17 11:50 T-piece 8.00 Intake and Output 08/11/17 08/11/17 08/12/17 08:00 16:00 00:00 Intake Total 715 ml Output Total 450 ml Balance 265 ml Result Diagram: 08/10/17 0439 08/11/17 1215 Imaging Last Impressions Abdomen X-Ray 08/04/17 0000 Signed Impressions: Service Date/Time: Friday, August 04, 2017 22:47 - CONCLUSION: Benign-appearing abdomen. Dobbhoff feeding tube tip in the mid stomach. Charlie Norris MD Chest X-Ray 07/30/17 0000 Signed Impressions: Service Date/Time: Sunday, July 30, 2017 02:49 - CONCLUSION: Probable mild CHF. K. Jhonny Ziegler MD Abdomen/Pelvis CT 07/24/17 0000 Signed Impressions: Service Date/Time: Monday, July 24, 2017 14:57 - CONCLUSION: Pleural effusion and atelectasis right greater than left. Bowel gas pattern is unremarkable. No evidence of an abscess. Some induration anterior abdominal wall with some possible early fluid collection inferiorly within the lower pannus. Jame Preciado MD Head CT 07/11/17 3817 Signed Impressions: Service Date/Time: Tuesday, July 11, 2017 21:23 - CONCLUSION: No acute intracranial abnormality Jaden Clark MD Last Impressions Abdomen X-Ray 07/25/17 0000 Signed Impressions: Service Date/Time: Tuesday, July 25, 2017 17:34 - CONCLUSION: Dobbhoff catheter tip in the distal stomach. Jasen Delvalle MD Abdomen/Pelvis CT 07/24/17 0000 Signed Impressions: Service Date/Time: Monday, July 24, 2017 14:57 - CONCLUSION: Pleural effusion and atelectasis right greater than left. Bowel gas pattern is unremarkable. No evidence of an abscess. Some induration anterior abdominal wall with some possible early fluid collection inferiorly within the lower pannus. Jame Preciado MD Chest X-Ray 07/21/17 0600 Signed Impressions: Service Date/Time: Friday, July 21, 2017 03:13 - CONCLUSION: Nasogastric tube now in place with the tip below the [id number] of the radiograph. No significant interval change in bilateral pulmonary opacity. Differential diagnosis includes pulmonary edema and infection. Angelito Lovett MD Head CT 07/11/17 1827 Signed Impressions: Service Date/Time: Tuesday, July 11, 2017 21:23 - CONCLUSION: No acute intracranial abnormality Jaden Clark MD Objective Remarks GENERAL: Morbidly obese elderly female s/p trach, awake nodding head responsive to yes and no questions SKIN: Warm and dry. HEAD: Normocephalic. EYES: No scleral icterus. No injection or drainage. NECK: trachea midline. trach in place CARDIOVASCULAR: Regular rate and rhythm. RESPIRATORY: on mechanical ventilation via tracheostomy, air entry decreased bilaterally at bases, scattered rhonchi. GASTROINTESTINAL: Abdomen soft, non-tender, nondistended. left non-healing ulcer area from prior PEG site. Dressing clean dry and intact on abdomen. MUSCULOSKELETAL: No cyanosis, or peripheral edema 2+. Neuro: Alert and oriented following commands x 4, on mechanical ventilation via tracheostomy A/P Assessment and Plan Assessment: 77yF with morbid obesity and recurrent healthcare associated pneumonia and hypoxic respiratory failure. s/p trach 07/25. contra-indicated for PEG given recent peg site induration. will use DHT for long-term enteral nutrition. no placement plan at this time. Our with worsening renal failure, and is a poor candidate for hemodialysis therapy due to her complex medical condition. Plan Neuro: metabolic encephalopathy Seizure disorder Neuropathy Anxiety disorder Off sedation. Monitor neuro status. On Keppra 500mg Q12 oxycodone 5mg po q4h prn for pain Xanax 0.25 every 6 hours when necessary, patient previously on Xanax 0.5 every 6 hours, continue to monitor. Pulm: Acute hypoxic and hypercarbic Respiratory failure Recurrent healthcare associated pneumonia Reintubated 07/19 Continue with vent support keep sat >92% Bronchodilators, ICU vent bundle. SBT daily as lisa s/p trach 07/[address] Srinivas Kennedy toilet, trach care. Continue CPAP trials and attempt trach collar trials Trach collar trials initiated 08/07/17 CV: History of hypertension Monitor HR and BP keep MAP>65mmHg Amiodarone 200mg BID 2d echo 07/20: normal biventricular function, EF 60%, RVSP 47 mmHg. : Acute kidney injury Free water deficit Monitor renal function, electrolytes replacement as needed. Nephrology consulted in view of rising BUN creatinine. Patient is a poor candidate for hemodialysis, per nephrology, given her complex medical condition with multiple comorbidities GI: Morbid Obesity Acute protein calorie malnutrition- moderate On tube feeds- Nepro with goal rate 65ml/hr, On roly Colace, Lactulose for bowel regimen. On Reglan 5mg IV Q8 PRN ICU electrolyte protocol ID: Recurrent HCAP pneumonia- resolved. Urinary tract infection- resolved. off abx. monitor clinically.. Urine cx: 07/11: Kleb ESBL, Citrobacter. Repeat urine cx 07/18 - Kirsten Albicans sputum cx: Enterobacter ID following. Nystatin powder to groin areas Heme: Anemia secondary to chronic disease Monitor CBC, on Ferrous sulfate and Folic acid Hep PLT ab -negative 1 unit PRBCs ordered on 07/30 for hemoglobin 7.2, no evidence of melena or rectal bleeding. Endo: Hypothyroidism Hyperglycemia of Critical illness SSI medium scale for glycemic control Obtain hemoglobin A1c / Levemir increased 10 units SQ BID GI prophylaxis- on Pepcid DVT prophylaxis- Heparin SQ Dispo: Awaiting placement. Patient was rejected by [facility] for not enough medicare days left. will look into vent-capable SNF facilities. does not meet inpatient criteria. consulted palliative care to assist with deciding goals of therapy as correction prognosis appears poor. Patient renal function continues to worsen, patient is a poor candidate for hemodialysis, has been explained to Mr. Henson per Nephrology. Palliative Care has been consulted and patient was made CODE STATUS DNR on08/11 Level 3 Discussed with TECHNICAL SPECIALIST (Jessica) at bedside and Dr. Garcia Physician Gianna Jeff MD Aug 11, 2017 15:03
[2017-08-11] MEDS: HYDROmorphone HCL PF 2 MG/ML VIAL IV PUSH PRN (20:52)
[2017-08-11] MEDS: AMITRIPTYLINE HCL 10 MG TAB PO SCH (20:54)
[2017-08-11] MEDS: NYSTATIN 100,000 U/GM PWD 15 GM BTL TOPICAL SCH (20:55)
[2017-08-11] MEDS ORDERED: INSULIN DETEMIR 100 UNITS/ML VIAL SQ SCH (21:00)
[2017-08-12] VITALS (35 sets, daily range): BP systolic 78–137; BP diastolic 37–91; PULSE 60–79; RESP 18–20; TEMP 98.2–98.9; O2SAT 92–100
[2017-08-12] MEDS: oxyCODONE HCL ORAL CONC 5 MG/0.25 ML SYRINGE PO PRN ×2 (01:42→17:34)
[2017-08-12] MEDS: CHLORHEXIDINE GLUCONATE 2 % 1 PACK (2 CLOTHS) TOP SCH (03:54)
[2017-08-12] MEDS: INSULIN NovoLIN REGULAR SUPPLEMENTAL SCALE SQ SCH ×3 (03:54→15:27)
[2017-08-12] MEDS: HEPARIN SODIUM - SQ 10,000 UNITS/ML VIAL SQ SCH ×3 (05:04→20:23)
[2017-08-12] MEDS: LEVOTHYROXINE SODIUM 25 MCG TAB PO SCH (05:04)
[2017-08-12] MEDS: HYDROmorphone HCL PF 2 MG/ML VIAL IV PUSH PRN ×2 (05:27→13:38)
[2017-08-12 08:07] LABS: BICARBONATE 32.4 MEQ/L (21.0-32.0); CALCIUM 9.6 MG/DL (8.5-10.1); CREATININE 2.93 MG/DL (0.50-1.00)
[2017-08-12] MEDS: ARTIFICIAL TEARS OPTH SOLN 15 ML BTL EACH EYE SCH ×3 (08:29→17:34)
[2017-08-12] MEDS: SODIUM CHLORIDE 0.9% FLUSH 10 ML FLUSH IV FLUSH SCH ×2 (08:29→20:23)
[2017-08-12] MEDS: GABAPENTIN 300 MG CAP PO SCH (08:30)
[2017-08-12] MEDS: ASCORBIC ACID 500 MG TAB PO SCH ×2 (08:30→20:21)
[2017-08-12] MEDS: levETIRAcetam 500 MG/5 ML UDC NG SCH ×2 (08:30→20:23)
[2017-08-12] MEDS: FERROUS SULFATE 300 MG /5ML UDC PO SCH ×2 (08:30→20:22)
[2017-08-12] MEDS: NYSTATIN 100,000 U/GM PWD 15 GM BTL TOPICAL SCH ×2 (08:30→20:25)
[2017-08-12] MEDS: DOCUSATE SODIUM 50 MG/SENNA 8.6 MG TAB PO SCH ×2 (08:30→20:22)
[2017-08-12] MEDS: MULTIVITAMIN TAB PO SCH (08:30)
[2017-08-12] MEDS: FAMOTIDINE 20 MG TAB NG SCH ×2 (08:30→20:40)
[2017-08-12] MEDS: COLLAGENASE OINT 30 GM TUBE TOPICAL SCH (08:30)
[2017-08-12] MEDS: LACTULOSE SYRUP 20 GM/30 ML CUP PO SCH ×3 (08:30→17:34)
[2017-08-12] MEDS: FOLIC ACID 1 MG TAB PO SCH (08:30)
[2017-08-12] MEDS: busPIRone HCL 10 MG TAB PO SCH ×2 (08:31→20:21)
[2017-08-12] MEDS: INSULIN DETEMIR 100 UNITS/ML VIAL SQ SCH ×2 (08:31→20:23)
[2017-08-12] MEDS: ZINC SULFATE 220 MG CAP PO SCH (08:31)
[2017-08-12] MEDS: AMIODARONE 200 MG TAB PO SCH ×3 (08:32→20:21)
[2017-08-12] MEDS: FUROSEMIDE 40 MG/4 ML VIAL IV PUSH SCH ×2 (08:32→17:34)
--- NOTE | 2017-08-12 12:15 | HHI.NPPN ---
Subjective General Problems: Anemia, Edema Renal Failure: Acute Review of Systems General General Remarks unable to evaluate Objective Data Data Vital Signs Date Time Temp Pulse Resp B/P (MAP) Pulse Ox O2 Delivery O2 Flow Rate FiO2 08/12/17 10:00 78 08/12/17 09:00 61 84/37 (53) 97 08/12/17 09:00 61 08/12/17 08:55 62 83/39 (54) 96 08/12/17 08:45 93 35 08/12/17 08:01 98.5 66 86/38 (54) 94 08/12/17 08:00 66 08/12/17 08:00 35 08/12/17 07:01 67 87/37 (54) 92 08/12/17 07:00 67 08/12/17 06:01 70 96/39 (58) 92 08/12/17 06:00 74 08/12/17 05:04 77 137/91 (106) 100 08/12/17 04:09 100 35 08/12/17 04:00 75 08/12/17 04:00 35 08/12/17 04:00 98.2 75 18 121/58 (79) 100 08/12/17 02:00 69 08/12/17 01:21 100 35 08/12/17 00:00 68 08/12/17 00:00 98.2 68 20 108/50 (69) 99 08/12/17 00:00 35 08/11/17 22:00 71 08/11/17 21:25 100 35 08/11/17 20:08 100 35 08/11/17 20:00 35 08/11/17 20:00 74 08/11/17 20:00 97.6 74 18 138/58 (84) 100 08/11/17 16:01 77 08/11/17 16:01 77 133/59 (83) 99 08/11/17 16:00 77 08/11/17 16:00 77 99 08/11/17 16:00 35 08/11/17 15:17 99 35 08/11/17 14:00 80 99 08/11/17 13:01 68 103/49 (67) 99 -: 08/10/17 0439 08/12/17 0730 Tubes & Lines: Eid Tubes & Lines Comment dobhoff, trach Physical Exam General Appearance: Comfortable, Obese, Malnourished Eyes Eye Exam: Pupils Equal Throat Throat Exam: Oral Mucosa [place] & Moist Neck Neck Exam: Neck Supple Pulmonary Resp Exam: Clear Bilaterally, No Distress, Diminished Breath Sounds Cardiology CV Exam: Regular, Normal Sinus Rhythm Gastrointestinal/Abdomen GI Exam: Soft, Non-Tender Musculoskeletal MS Exam: Unable to Ambulate Integumentary Skin Exam: Warm, Dry Extremeties Extremities Exam: Pedal Pulses Palpable, Moderate Edema, Pitting Edema, Dependent Edema Neurologic Neuro Exam: Unresponsive, Sedated Assessment/Plan Assessment Summary: RADHA/Acute Renal Failure, Fluid/Volume Overload, Hypertension Problem List: (1) Acute kidney insufficiency ICD Codes: N28.9 - Disorder of kidney and ureter, unspecified Plan: RADHA could be due to allergic interstitial nephritis, although she has also most likey suffered hypoperfusion injury due to hypotension. May have progressed to ATN Renal function is stable compared to yesterday.. She is non oliguric. Eid is out currently 10 kg weight gain. Still with fluid overload. Restart Lasix 40 BID. x 24 hrs and monitor. Labs cr 2.9 higher on Lasix 40 mg q 12 UOP 900 Family refused dialysis discussed Avoid hypotension. Avoid nephrotoxic agents. Renally dose if appropriate. Due to multiple comorbidities, she is not a candidate for dialysis, will not do well. Palliative to meet with family. Possible Hospice next week (2) Hyperkalemia ICD Codes: E87.5 - Hyperkalemia Plan: Improved. Continue to monitor. (3) Acute respiratory failure with hypoxia and hypercarbia ICD Codes: J96.01 - Acute respiratory failure with hypoxia; J96.02 - Acute respiratory failure with hypercapnia Plan: On CPAP, trach. (4) Hypertension ICD Codes: I10 - Essential (primary) hypertension Plan: BP has improved. Monitor and avoid antihypertensives. (5) Encephalopathy ICD Codes: G93.40 - Encephalopathy, unspecified Plan: Prognosis appears to be poor. Gail Garcia MD Aug 12, 2017 12:15
[2017-08-12] MEDS: ALPRAZolam 0.25 MG TAB PO PRN (18:07)
--- NOTE | 2017-08-12 18:58 | HHI.CCPN ---
Subjective Remarks/Hospital Course 07/11: 77-year-old morbidly obese female patient sent in from detention, due to increased lethargy for the last 2 days, hypoglycemia early in the day with sugars of 44, given glucagon, chest x-ray showing a pneumonia according to facility staff, EMS noted the patient was fairly disoriented, GCS 6, and started bag valve masking her because of respiratory distress and hypoxia with sats in the 87% range despite oxygenation. Patient was brought in bag-valve- mask in progress and was immediately intubated in the emergency department by ED attending. 07/12: Sedated, orally intubated on mechanical ventilation. 07/13 Patient is sedated with Fentanyl and intubated. Afebrile. 07/14 No events overnight, Sedated with Fentanyl and Versed. Afebrile. Failed CPAP trials yesterday. 07/15 No events overnight. Sedated and intubated. ABG on CPAP yesterday showed resp acidosis with PH 7.22 and CO2: 58 07/16 Patient remains sedated and intubated 07/17. No events overnight. Remains sedated and intubated 07/18 Patient remains intubated off sedation. Afebrile. 07/19 Patient s/p extubation yesterday on BIPAP overnight. Awake. ABG last night showed resp acidosis with PH: 7.24, pCO2: 66 07/20 Patient was reintubated yesterday for resp failure. Sedated and intubated. Afebrile. 07/21: new HCAP with GNRs in sputum. persistent respiratory failure. likely will require long-term ventilation and slow wean. will consult general surgery for re-do trach and gastric access. 07/22: no changes. no improvements. gen surgery planning PEG/Trach next week. 07/23: sputum growing enterobacter; now on Cefepime per ID. neuro exam still stable, but fails weaning trials quickly. 07/24: no changes. still failing cpap and weaning trials. CT abd/pelvis done at gen surg request without overt abscess at prior peg site. 07/25: s/p trach today. doing well. still failing cpap. approved for LTAC. surgical contra-indication to PEG placement with induration at old PEG site: will use DHT for enteral access and tube feeds. ID giving final recs for duration of therapy. stable for discharge to LTAC when bed available. 07/26 No events overnight. Patient was rejected by [facility] this morning per corrections caseworker. Afebrile. 07/27 Patient is sedated with Diprivan and intubated. Afebrile. 07/28 No events overnight. Off sedation. On ventilator via trach. 07/29 No events overnight. Tolerated CPAP for most f day yesterday. Afebrile. 07/30: Remains on mechanical ventilation via tracheostomy. Drowsy/ encephalopathic 07/31: Remains encephalopathic, on mechanical ventilation via tracheostomy. Received 1 unit PRBCs yesterday. No melena or rectal bleeding noted. 08/01: Remains encephalopathic, on mechanical ventilation via tracheostomy. Daily C Pap trials ongoing. Neurologic status remains poor. 08/02: no improvements, no changes. does not meet inpatient criteria, but funding problems prevent appropriate placement. overall prognosis very poor. unlikely that she will survive this medical illness. 08/03: continues without significant changes or improvements. 08/04: Remains encephalopathic, on mechanical ventilation via tracheostomy. Potassium elevated. Ordered Kayexalate. 08/05: Remains encephalopathic, on mechanical ventilation via tracheostomy. Potassium levels coming down. 08/06: Remains encephalopathic on mechanical ventilation via tracheostomy. Tolerating tube feeds. Daily C Pap trials 08/07: Patient awake this a.m., following commands answering yes and no questions. The patient remain on CPAP yesterday for an extended period of time. Plan to begin trach collar trials this a.m.. Patient noted 1 g/dl drop in hemoglobin repeat hemoglobin pending. 08/08: Tmax 99.6. Hemoglobin stabilized. The patient was initiated on T piece trials yesterday morning and sustained T piece trials for greater than 12 hours yesterday. Patient placed back on PRN antianxiety meds Xanax, states she is anxious. T piece trials reinitiated this a.m. Of patient noted to have elevated glucose levels persistent. Levemir 5 units subcutaneous twice a day hemoglobin A1c pending. Creatinine noted to be worsening nephrology is following. Tolerating tube feeds. 08/09: Patient tolerated T piece trials for approximately 14 hours, before returning to CPAP. The patient continues on CPAP 03/10.35. The patient is notably lethargic this a.m., receiving Dilaudid 1 dose last evening, will continue to monitor. Frequency narcotic has been decreased. Creatinine continues to worsen, discussed with nephrology Dr. Elder- patient a poor candidate for hemodialysis, as she probably will not do well. Palliative care reconsulted for evaluation and defining goals of care 08/10: Afebrile .Patient continues on CPAP, responsive. Creatinine continues to worsen, it is felt that the patient will not do well on hemodialysis given her multiple comorbidities Discussion with palliative care team has been made patient DNR status today following jewish. 08/11: No acute events overnight. Creatinine continues to rise. is considering possibly Hospice, in the near future. Groin area erythematous and nystatin powder added to medication regimen. Eid maintained to prevent further skin breakdown and measure adequate urinary output. 08/12: Afebrile. No improvement in renal function. Nodding yes and no to questions, continues on CPAP. Objective Vital Signs Date Time Temp Pulse Resp B/P (MAP) Pulse Ox O2 Delivery O2 Flow Rate FiO2 08/12/17 18:00 69 08/12/17 16:04 98 35 08/12/17 16:01 98.6 109/53 (71) 08/12/17 14:08 18 08/10/17 11:50 T-piece 8.00 Intake and Output 08/12/17 08/12/17 08/13/17 08:00 16:00 00:00 Intake Total 879 ml 825 ml Output Total 450 ml 250 ml Balance 429 ml 575 ml Result Diagram: 08/10/17 0439 08/12/17 0730 Imaging Last Impressions Abdomen X-Ray 08/04/17 0000 Signed Impressions: Service Date/Time: Friday, August 04, 2017 22:47 - CONCLUSION: Benign-appearing abdomen. Dobbhoff feeding tube tip in the mid stomach. Charlie Norris MD Chest X-Ray 07/30/17 0000 Signed Impressions: Service Date/Time: Sunday, July 30, 2017 02:49 - CONCLUSION: Probable mild CHF. Aldair Ziegler MD Abdomen/Pelvis CT 07/24/17 0000 Signed Impressions: Service Date/Time: Monday, July 24, 2017 14:57 - CONCLUSION: Pleural effusion and atelectasis right greater than left. Bowel gas pattern is unremarkable. No evidence of an abscess. Some induration anterior abdominal wall with some possible early fluid collection inferiorly within the lower pannus. Jame Preciado MD Head CT [id number]/[id number] Signed Impressions: Service Date/Time: Tuesday, July 11, 2017 21:23 - CONCLUSION: No acute intracranial abnormality Jaden Clark MD Last Impressions Abdomen X-Ray 07/25/17 0000 Signed Impressions: Service Date/Time: Tuesday, July 25, 2017 17:34 - CONCLUSION: Dobbhoff catheter tip in the distal stomach. Jsaen Delvalle MD Abdomen/Pelvis CT 07/24/17 0000 Signed Impressions: Service Date/Time: Monday, July 24, 2017 14:57 - CONCLUSION: Pleural effusion and atelectasis right greater than left. Bowel gas pattern is unremarkable. No evidence of an abscess. Some induration anterior abdominal wall with some possible early fluid collection inferiorly within the lower pannus. Jame Preciado MD Chest X-Ray 07/21/17 0600 Signed Impressions: Service Date/Time: Friday, July 21, 2017 03:13 - CONCLUSION: Nasogastric tube now in place with the tip below the [id number] of the radiograph. No significant interval change in bilateral pulmonary opacity. Differential diagnosis includes pulmonary edema and infection. Angelito Lovett MD Head CT [id number]/[id number] Signed Impressions: Service Date/Time: Tuesday, July 11, 2017 21:23 - CONCLUSION: No acute intracranial abnormality Jaden Clark MD Objective Remarks GENERAL: Morbidly obese elderly female s/p trach, awake nodding head responsive to yes and no questions SKIN: Warm and dry. HEAD: Normocephalic. EYES: No scleral icterus. No injection or drainage. NECK: trachea midline. trach in place CARDIOVASCULAR: Regular rate and rhythm. RESPIRATORY: on mechanical ventilation via tracheostomy, air entry decreased bilaterally at bases, scattered rhonchi. GASTROINTESTINAL: Abdomen soft, non-tender, nondistended. left non-healing ulcer area from prior PEG site. Dressing clean dry and intact on abdomen. MUSCULOSKELETAL: No cyanosis, or peripheral edema 2+. Neuro: Alert and oriented following commands x 4, on mechanical ventilation via tracheostomy A/P Assessment and Plan Assessment: 77yF with morbid obesity and recurrent healthcare associated pneumonia and hypoxic respiratory failure. s/p trach 07/25. contra-indicated for PEG given recent peg site induration. will use DHT for long-term enteral nutrition. no placement plan at this time. Our with worsening renal failure, and is a poor candidate for hemodialysis therapy. Plan Neuro: metabolic encephalopathy Seizure disorder Neuropathy Anxiety disorder Off sedation. Monitor neuro status. On Keppra 500mg Q12 oxycodone 5mg po q4h prn for pain Xanax 0.25 every 6 hours when necessary, patient previously on Xanax 0.5 every 6 hours, continue to monitor. Pulm: Acute hypoxic and hypercarbic Respiratory failure Recurrent healthcare associated pneumonia Reintubated 07/19 Continue with vent support keep sat >92% Bronchodilators, ICU vent bundle. SBT daily as lisa s/p trach 07/[address] Srinivas Kennedy toilet, [facility]. Continue CPAP trials and attempt trach collar trials Trach collar trials initiated 08/07/17 CV: History of hypertension Monitor HR and BP keep MAP>65mmHg Amiodarone 200mg BID 2d echo 07/20: normal biventricular function, EF 60%, RVSP 47 mmHg. : Acute kidney injury Free water deficit Monitor renal function, electrolytes replacement as needed. Nephrology consulted in view of rising BUN creatinine. Patient is a poor candidate for hemodialysis, per nephrology to her complex medical condition with multiple comorbidities GI: Morbid Obesity Acute protein calorie malnutrition- moderate On tube feeds- Nepro with goal rate 65ml/hr, On roly Colace, Lactulose for bowel regimen. On Reglan 5mg IV Q8 PRN ICU electrolyte protocol ID: Recurrent HCAP pneumonia- resolved. Urinary tract infection- resolved. off abx. monitor clinically.. Urine cx: 07/11: Kleb ESBL, Citrobacter. Repeat urine cx 07/18 - Kirsten Albicans sputum cx: Enterobacter ID following. Nystatin powder to groin areas Heme: Anemia secondary to chronic disease Monitor CBC, on Ferrous sulfate and Folic acid Hep PLT ab -negative 1 unit PRBCs ordered on 07/30 for hemoglobin 7.2, no evidence of melena or rectal bleeding. Endo: Hypothyroidism Hyperglycemia of Critical illness SSI medium scale for glycemic control Obtain hemoglobin A1c /3 Levemir increased 10 units SQ BID GI prophylaxis- on Pepcid DVT prophylaxis- Heparin SQ Dispo: Awaiting placement. Patient was rejected by [facility] for not enough medicare days left. will look into vent-capable SNF facilities. does not meet inpatient criteria. consulted palliative care to assist with deciding goals of therapy as prison prognosis appears poor. The patient's renal function continues to worsen, patient is not a candidate for hemodialysis. Palliative Care has been consulted and patient was made CODE STATUS DNR on08/11 Level 3 follow up Discussed with DRIVER TRAINEE (Dasia) at bedside Physician Gianna Jeff MD Aug 12, 2017 18:58
[2017-08-12] MEDS ORDERED: SODIUM CHLOR 0.9% 1000 ML INJ 1,000 ML IV ONE ×3 (20:30)
[2017-08-12] MEDS: AMITRIPTYLINE HCL 10 MG TAB PO SCH (20:40)
[2017-08-13] VITALS (24 sets, daily range): BP systolic 87–202; BP diastolic 42–99; PULSE 59–99; RESP 20–22; TEMP 98.2–98.9; O2SAT 96–100
[2017-08-13] MEDS: INSULIN NovoLIN REGULAR SUPPLEMENTAL SCALE SQ SCH ×4 (01:20→23:52)
[2017-08-13] MEDS: CHLORHEXIDINE GLUCONATE 2 % 1 PACK (2 CLOTHS) TOP SCH (03:49)
--- NOTE | 2017-08-13 04:05 | RADRPT ---
EXAM DATE/TIME: 08/13/2017 03:11 [facility] COMPARISON: CHEST SINGLE AP, July 30, 2017, 2:49. INDICATIONS : Shortness of breath, possible pulmonary disease. MEDICAL HISTORY : Hypertension. Diabetes mellitus type II. SURGICAL HISTORY : Cholecystectomy. Appendectomy. ENCOUNTER: Subsequent ACUITY: 1 month PAIN SCORE: Non-responsive. LOCATION: Bilateral chest FINDINGS: The cardiac silhouette is enlarged in transverse diameter. There is patchy alveolar disease bilateral ly compatible with edema or pneumonia. Diffusion weighted imaging demonstrates no abnormality. A trac heostomy tube is in place in the midline. CONCLUSION: 1. Patchy alveolar disease characteristic of edema or pneumonia. There has been no significant madrigal e when compared to the prior exam. Gucci Waldrop MD on August 13, 2017 at 4:03 Board Certified Radiologist. This report was verified electronically.
[2017-08-13] MEDS: LEVOTHYROXINE SODIUM 25 MCG TAB PO SCH (04:40)
[2017-08-13] MEDS: HEPARIN SODIUM - SQ 10,000 UNITS/ML VIAL SQ SCH ×3 (04:40→22:02)
[2017-08-13 05:52] LABS: HEMATOCRIT 22.7 % (35.0-46.0); HEMOGLOBIN 7.4 GM/DL (11.6-15.3); MEAN CELL VOLUME 97.5 FL (80.0-100.0); MEAN CORPUSCULAR HEMOGLOBIN 31.6 PG (27.0-34.0); MEAN CORPUSCULAR HGB CONC 32.4 % (32.0-36.0); MEAN PLATELET VOLUME 9.6 FL (7.0-11.0); PLATELET COUNT 171 TH/MM3 (150-450); RED BLOOD COUNT 2.33 MIL/MM3 (4.00-5.30); RED CELL DISTRIBUTION WIDTH 18.4 % (11.6-17.2)
[2017-08-13 06:10] LABS: BICARBONATE 29.7 MEQ/L (21.0-32.0); CALCIUM 9.3 MG/DL (8.5-10.1); CREATININE 2.95 MG/DL (0.50-1.00)
[2017-08-13] MEDS: FOLIC ACID 1 MG TAB PO SCH (09:00)
[2017-08-13] MEDS: ASCORBIC ACID 500 MG TAB PO SCH ×2 (09:40→22:02)
[2017-08-13] MEDS: MULTIVITAMIN TAB PO SCH (09:40)
[2017-08-13] MEDS: busPIRone HCL 10 MG TAB PO SCH ×2 (09:40→22:02)
[2017-08-13] MEDS: DOCUSATE SODIUM 50 MG/SENNA 8.6 MG TAB PO SCH ×2 (09:40→22:02)
[2017-08-13] MEDS: AMIODARONE 200 MG TAB PO SCH ×2 (09:40→22:03)
[2017-08-13] MEDS: GABAPENTIN 300 MG CAP PO SCH (09:40)
[2017-08-13] MEDS: INSULIN DETEMIR 100 UNITS/ML VIAL SQ SCH ×2 (09:41→21:00)
[2017-08-13] MEDS: FERROUS SULFATE 300 MG /5ML UDC PO SCH ×2 (09:41→22:03)
[2017-08-13] MEDS: ZINC SULFATE 220 MG CAP PO SCH (09:41)
[2017-08-13] MEDS: NYSTATIN 100,000 U/GM PWD 15 GM BTL TOPICAL SCH ×2 (09:41→22:03)
[2017-08-13] MEDS: LACTULOSE SYRUP 20 GM/30 ML CUP PO SCH ×3 (09:41→18:00)
[2017-08-13] MEDS: levETIRAcetam 500 MG/5 ML UDC NG SCH ×2 (09:41→22:01)
[2017-08-13] MEDS: FAMOTIDINE 20 MG TAB NG SCH ×2 (09:41→22:02)
[2017-08-13] MEDS: PADIMATE (CHAPSTICK) 4.5 GM TUBE TOPICAL PRN (09:42)
[2017-08-13] MEDS: ARTIFICIAL TEARS OPTH SOLN 15 ML BTL EACH EYE SCH ×3 (09:42→18:34)
[2017-08-13] MEDS: COLLAGENASE OINT 30 GM TUBE TOPICAL SCH (09:42)
[2017-08-13] MEDS: SODIUM CHLORIDE 0.9% FLUSH 10 ML FLUSH IV FLUSH SCH ×2 (09:44→22:04)
--- NOTE | 2017-08-13 11:38 | HHI.NPPN ---
Subjective General Problems: Anemia, Edema Renal Failure: Acute Interval History Renal function has remained stable overnight. She is awake, nods yes/no to questions. She is non oliguric but urine output may have slowed. (Nicki Zapata) Review of Systems General General Remarks generalized pain (Nciki Zapata) Objective Data Data Vital Signs Date Time Temp Pulse Resp B/P (MAP) Pulse Ox O2 Delivery O2 Flow Rate FiO2 08/13/17 07:42 100 35 08/13/17 06:00 80 08/13/17 04:08 98 35 08/13/17 04:00 35 08/13/17 04:00 98.9 82 22 147/67 (93) 98 08/13/17 04:00 82 08/13/17 02:00 75 08/13/17 01:08 96 35 08/13/17 00:00 76 08/13/17 00:00 35 08/13/17 00:00 98.9 76 113/55 (74) 96 08/12/17 22:00 62 08/12/17 20:49 100 35 08/12/17 20:00 35 08/12/17 20:00 60 08/12/17 20:00 98.9 60 20 78/37 (51) 95 08/12/17 18:00 69 08/12/17 17:00 74 08/12/17 16:04 98 35 08/12/17 16:01 98.6 79 109/53 (71) 100 08/12/17 16:00 77 08/12/17 16:00 35 08/12/17 15:01 76 120/57 (78) 97 08/12/17 15:00 78 08/12/17 14:08 18 08/12/17 14:01 72 109/49 (69) 95 08/12/17 14:00 72 08/12/17 13:01 76 115/56 (75) 98 08/12/17 13:00 75 08/12/17 12:22 100 35 08/12/17 12:01 98.9 79 124/58 (80) 100 08/12/17 12:00 79 08/12/17 12:00 35 (Nicki Zapata) -: 08/13/17 0431 08/13/17 0431 Imaging Last 72 hours Impressions Chest X-Ray 08/13/17 0600 Signed Impressions: Service Date/Time: Sunday, August 13, 2017 03:11 - CONCLUSION: 1. Patchy alveolar disease characteristic of edema or pneumonia. There has been no significant change when compared to the prior exam. Gucci Waldrop MD Tubes & Lines: Eid Tubes & Lines Comment ivelisse tijerina (Nicki Zapata B. ENTERPRISE APPLICATIONS MANAGER) Physical Exam General Appearance: Comfortable, Obese, Malnourished Appearance Remarks chronically ill appearing (BennyNicki B. ENTERPRISE APPLICATIONS MANAGER) Eyes Eye Exam: Pupils Equal (Benny,Nicki B. ENTERPRISE APPLICATIONS MANAGER) Throat Throat Exam: Oral Mucosa [place] & Moist (BennyNicki B. ENTERPRISE APPLICATIONS MANAGER) Neck Neck Exam: Neck Supple (BennyNicki B. ENTERPRISE APPLICATIONS MANAGER) Pulmonary Resp Exam: Clear Bilaterally, No Distress, Diminished Breath Sounds Resp Remarks trach (Benny,Nicki B. ENTERPRISE APPLICATIONS MANAGER) Cardiology CV Exam: Regular, Normal Sinus Rhythm (Zev Zapataon B. ENTERPRISE APPLICATIONS MANAGER) Gastrointestinal/Abdomen GI Exam: Soft, Non-Tender (BennyNicki B. ENTERPRISE APPLICATIONS MANAGER) Musculoskeletal MS Exam: Unable to Ambulate (BennyNicki B. ENTERPRISE APPLICATIONS MANAGER) Integumentary Skin Exam: Warm, Dry (BennyNicki B. ENTERPRISE APPLICATIONS MANAGER) Extremeties Extremities Exam: Pedal Pulses Palpable, Moderate Edema, Pitting Edema, Dependent Edema (BennyNicki B. ENTERPRISE APPLICATIONS MANAGER) Neurologic Neuro Exam: Unresponsive, Sedated (BennyNicki B. ENTERPRISE APPLICATIONS MANAGER) Assessment/Plan Assessment Summary: RADHA/Acute Renal Failure, Fluid/Volume Overload, Hypertension Problem List: (1) Acute kidney insufficiency ICD Codes: N28.9 - Disorder of kidney and ureter, unspecified Plan: RADHA could be due to allergic interstitial nephritis, although she has also most likey suffered hypoperfusion injury due to hypotension. May have progressed to ATN Renal function is stable compared to yesterday.. She is non oliguric. Eid was replaced Diuretics were held, apparently given several boluses of IVF. Still unclear family goals, will meet with palliative/hospice obtain labs in AM Avoid hypotension. Avoid nephrotoxic agents. Renally dose if appropriate. Due to multiple comorbidities, she is not a candidate for dialysis, will not do well. Palliative to meet with family. (2) Hyperkalemia ICD Codes: E87.5 - Hyperkalemia Plan: Improved. Continue to monitor. (3) Acute respiratory failure with hypoxia and hypercarbia ICD Codes: J96.01 - Acute respiratory failure with hypoxia; J96.02 - Acute respiratory failure with hypercapnia Plan: On CPAP, trach. (4) Hypertension ICD Codes: I10 - Essential (primary) hypertension Plan: BP has improved. Monitor and avoid antihypertensives. (5) Encephalopathy ICD Codes: G93.40 - Encephalopathy, unspecified Plan: Prognosis appears to be poor. (Nicki Zapata) Plan patient was seen and examined. Agree with above assessment and plan. Patient has poor prognosis. Has suffered hypoxic encephalopathy. (Kendrick Liriano MD) Nicki Zapata Aug 13, 2017 11:38 Kendrick Liriano MD Aug 13, 2017 17:40
[2017-08-13] MEDS: RESP: ALBUTEROL 2.5 MG/IPRATROPIUM 0.5 MG NEB (PRN) NEB (13:01)
[2017-08-13] MEDS: HYDROmorphone HCL PF 2 MG/ML VIAL IV PUSH PRN ×2 (13:25→22:33)
[2017-08-13] MEDS: SODIUM CHLORIDE 0.9% FLUSH 10 ML FLUSH IV FLUSH PRN (13:26)
--- NOTE | 2017-08-13 15:43 | HHI.CCPN ---
Subjective Remarks/Hospital Course 07/11: 77-year-old morbidly obese female patient [facility] in [facility], due to increased lethargy for the last 2 days, hypoglycemia early in the day with sugars of 44, given glucagon, chest x-ray showing a pneumonia according to facility staff, EMS noted the patient was fairly disoriented, GCS 6, and started bag valve masking her because of respiratory distress and hypoxia with sats in the 87% range despite oxygenation. Patient was brought in bag-valve- mask in progress and was immediately intubated in the emergency department by ED attending. 07/12: Sedated, orally intubated on mechanical ventilation. 07/13 Patient is sedated with Fentanyl and intubated. Afebrile. 07/14 No events overnight, Sedated with Fentanyl and Versed. Afebrile. Failed CPAP trials yesterday. 07/15 No events overnight. Sedated and intubated. ABG on CPAP yesterday showed resp acidosis with PH 7.22 and CO2: 58 07/16 Patient remains sedated and intubated 07/17. No events overnight. Remains sedated and intubated 07/18 Patient remains intubated off sedation. Afebrile. 07/19 Patient s/p extubation yesterday on BIPAP overnight. Awake. ABG last night showed resp acidosis with PH: 7.24, pCO2: 66 07/20 Patient was reintubated yesterday for resp failure. Sedated and intubated. Afebrile. 07/21: new HCAP with GNRs in sputum. persistent respiratory failure. likely will require long-term ventilation and slow wean. will consult general surgery for re-do trach and gastric access. 07/22: no changes. no improvements. gen surgery planning PEG/Trach next week. 07/23: sputum growing enterobacter; now on Cefepime per ID. neuro exam still stable, but fails weaning trials quickly. 07/24: no changes. still failing cpap and weaning trials. CT abd/pelvis done at gen surg request without overt abscess at prior peg site. 07/25: s/p trach today. doing well. still failing cpap. approved for LTAC. surgical contra-indication to PEG placement with induration at old PEG site: will use DHT for enteral access and tube feeds. ID giving final recs for duration of therapy. stable for discharge to LTAC when bed available. 07/26 No events overnight. Patient was rejected by [facility] this morning per mental health case manager. Afebrile. 07/27 Patient is sedated with Diprivan and intubated. Afebrile. 07/28 No events overnight. Off sedation. On ventilator via trach. 07/29 No events overnight. Tolerated CPAP for most f day yesterday. Afebrile. 07/30: Remains on mechanical ventilation via tracheostomy. Drowsy/ encephalopathic 07/31: Remains encephalopathic, on mechanical ventilation via tracheostomy. Received 1 unit PRBCs yesterday. No melena or rectal bleeding noted. 08/01: Remains encephalopathic, on mechanical ventilation via tracheostomy. Daily C Pap trials ongoing. Neurologic status remains poor. 08/02: no improvements, no changes. does not meet inpatient criteria, but funding problems prevent appropriate placement. overall prognosis very poor. unlikely that she will survive this medical illness. 08/03: continues without significant changes or improvements. 08/04: Remains encephalopathic, on mechanical ventilation via tracheostomy. Potassium elevated. Ordered Kayexalate. 08/05: Remains encephalopathic, on mechanical ventilation via tracheostomy. Potassium levels coming down. 08/06: Remains encephalopathic on mechanical ventilation via tracheostomy. Tolerating tube feeds. Daily C Pap trials 08/07: Patient awake this a.m., following commands answering yes and no questions. The patient remain on CPAP yesterday for an extended period of time. Plan to begin trach collar trials this a.m.. Patient noted 1 g/dl drop in hemoglobin repeat hemoglobin pending. 08/08: Tmax 99.6. Hemoglobin stabilized. The patient was initiated on T piece trials yesterday morning and sustained T piece trials for greater than 12 hours yesterday. Patient placed back on PRN antianxiety meds Xanax, states she is anxious. T piece trials reinitiated this a.m. Of patient noted to have elevated glucose levels persistent. Levemir 5 units subcutaneous twice a day hemoglobin A1c pending. Creatinine noted to be worsening nephrology is following. Tolerating tube feeds. 08/09: Patient tolerated T piece trials for approximately 14 hours, before returning to CPAP. The patient continues on CPAP 03/10.35. The patient is notably lethargic this a.m., receiving Dilaudid 1 dose last evening, will continue to monitor. Frequency narcotic has been decreased. Creatinine continues to worsen, discussed with nephrology Dr. Elder patient is not a candidate for hemodialysis. Palliative care reconsulted for evaluation and defining goals of care. 08/10: Afebrile .Patient continues on CPAP, responsive. 08/10: Afebrile .Patient continues on CPAP, responsive. Creatinine continues to worsen, it is felt that the patient will not do well on hemodialysis given her multiple comorbidities. Discussion with palliative care team has been made patient DNR status today following gnosticist. 08/11: No acute events overnight. Creatinine continues to rise. is considering possibly Hospice, in the near future. Groin area erythematous and nystatin powder added to medication regimen. Eid maintained to prevent further skin breakdown and measure adequate urinary output. 08/12: Afebrile. No improvement in renal function. Nodding yes and no to questions, continues on CPAP. Objective Vital Signs Date Time Temp Pulse Resp B/P (MAP) Pulse Ox O2 Delivery O2 Flow Rate FiO2 08/13/17 13:03 100 35 08/13/17 06:00 80 08/13/17 04:00 98.9 22 147/67 (93) 08/10/17 11:50 T-piece 8.00 Intake and Output 08/13/17 08/13/17 08/14/17 08:00 16:00 00:00 Intake Total 2797 ml Output Total 350 ml Balance 2447 ml Result Diagram: 08/13/17 0431 08/13/17 0431 Imaging Last Impressions Abdomen X-Ray 08/04/17 0000 Signed Impressions: Service Date/Time: Friday, August 04, 2017 22:47 - CONCLUSION: Benign-appearing abdomen. Dobbhoff feeding tube tip in the mid stomach. Charlie Norris MD Chest X-Ray 07/30/17 0000 Signed Impressions: Service Date/Time: Sunday, July 30, 2017 02:49 - CONCLUSION: Probable mild CHF. Aldair Ziegler MD Abdomen/Pelvis CT 07/24/17 0000 Signed Impressions: Service Date/Time: Monday, July 24, 2017 14:57 - CONCLUSION: Pleural effusion and atelectasis right greater than left. Bowel gas pattern is unremarkable. No evidence of an abscess. Some induration anterior abdominal wall with some possible early fluid collection inferiorly within the lower pannus. Jame Preciado MD Head CT [id number]/11/[id number] Signed Impressions: Service Date/Time: Tuesday, July 11, 2017 21:23 - CONCLUSION: No acute intracranial abnormality Jaden Clark MD Last Impressions Abdomen X-Ray 07/25/17 0000 Signed Impressions: Service Date/Time: Tuesday, July 25, 2017 17:34 - CONCLUSION: Dobbhoff catheter tip in the distal stomach. Jasen Delvalle MD Abdomen/Pelvis CT 07/24/17 0000 Signed Impressions: Service Date/Time: Monday, July 24, 2017 14:57 - CONCLUSION: Pleural effusion and atelectasis right greater than left. Bowel gas pattern is unremarkable. No evidence of an abscess. Some induration anterior abdominal wall with some possible early fluid collection inferiorly within the lower pannus. Jame Preciado MD Chest X-Ray 07/21/17 0600 Signed Impressions: Service Date/Time: Friday, July 21, 2017 03:13 - CONCLUSION: Nasogastric tube now in place with the tip below the [id number] of the radiograph. No significant interval change in bilateral pulmonary opacity. Differential diagnosis includes pulmonary edema and infection. Angelito Lovett MD Head CT [id number]/11/[id number] Signed Impressions: Service Date/Time: Tuesday, July 11, 2017 21:23 - CONCLUSION: No acute intracranial abnormality Jaden Clark MD Objective Remarks GENERAL: Morbidly obese elderly female s/p trach, awake nodding head responsive to yes and no questions SKIN: Warm and dry. HEAD: Normocephalic. EYES: No scleral icterus. No injection or drainage. NECK: trachea midline. trach in place CARDIOVASCULAR: Regular rate and rhythm. RESPIRATORY: on mechanical ventilation via tracheostomy, air entry decreased bilaterally at bases, scattered rhonchi. GASTROINTESTINAL: Abdomen soft, non-tender, nondistended. left non-healing ulcer area from prior PEG site. Dressing clean dry and intact on abdomen. MUSCULOSKELETAL: No cyanosis, or peripheral edema 2+. Neuro: Alert and oriented following commands x 4, on mechanical ventilation via tracheostomy A/P Assessment and Plan Assessment: 77yF with morbid obesity and recurrent healthcare associated pneumonia and hypoxic respiratory failure. s/p trach 07/25. contra-indicated for PEG given recent peg site induration. will use DHT for long-term enteral nutrition. no placement plan at this time. Our with worsening renal failure, and is a poor candidate for hemodialysis therapy Plan Neuro: metabolic encephalopathy Seizure disorder Neuropathy Anxiety disorder Off sedation. Monitor neuro status. On Keppra 500mg Q12 oxycodone 5mg po q4h prn for pain Xanax 0.25 every 6 hours when necessary, patient previously on Xanax 0.5 every 6 hours, continue to monitor. Pulm: Acute hypoxic and hypercarbic Respiratory failure Recurrent healthcare associated pneumonia Reintubated 07/19 Continue with vent support keep sat >92% Bronchodilators, ICU vent bundle. SBT daily as lisa s/p trach 07/[address] Srinivas Kennedy toilet, [facility], [facility]1983. Continue CPAP trials and attempt trach collar trials Trach collar trials initiated 08/07/17 CV: History of hypertension Monitor HR and BP keep MAP>65mmHg Amiodarone 200mg BID 2d echo 07/20: normal biventricular function, EF 60%, RVSP 47 mmHg. : Acute kidney injury Free water deficit Monitor renal function, electrolytes replacement as needed. Nephrology consulted in view of rising BUN creatinine. Patient is a poor candidate for hemodialysis, per nephrology due to her complex medical condition with multiple comorbidities GI: Morbid Obesity Acute protein calorie malnutrition- moderate On tube feeds- Nepro with goal rate 65ml/hr, On roly Colace, Lactulose for bowel regimen. On Reglan 5mg IV Q8 PRN ICU electrolyte protocol ID: Recurrent HCAP pneumonia- resolved. Urinary tract infection- resolved. off abx. monitor clinically.. Urine cx: 07/11: Kleb ESBL, Citrobacter. Repeat urine cx 07/18 - Kirsten Albicans sputum cx: Enterobacter ID following. Nystatin powder to groin areas Heme: Anemia secondary to chronic disease Monitor CBC, on Ferrous sulfate and Folic acid Hep PLT ab -negative 1 unit PRBCs ordered on 07/30 for hemoglobin 7.2, no evidence of melena or rectal bleeding. Endo: Hypothyroidism Hyperglycemia of Critical illness SSI medium scale for glycemic control Obtain hemoglobin A1c / Levemir increased 10 units SQ BID GI prophylaxis- on Pepcid DVT prophylaxis- Heparin SQ Dispo: Awaiting placement. Patient was rejected by [facility] for not enough medicare days left. will look into vent-capable SNF facilities. does not meet inpatient criteria. consulted palliative care to assist with deciding goals of therapy as correction prognosis appears poor. Patient's renal function continues to worsen, patient is not a candidate for hemodialysis. Palliative Care has been consulted and patient was made CODE STATUS DNR on08/11 Level 3 follow up Discussed with CORPORATE TAX MANAGER (Dasia) at bedside Gianna Newman MD Aug 13, 2017 15:43
--- NOTE | 2017-08-13 16:15 | HHI.CCPN ---
Subjective Remarks/Hospital Course 07/11: 77-year-old morbidly obese female patient sent in from [facility], due to increased lethargy for the last 2 days, hypoglycemia early in the day with sugars of 44, given glucagon, chest x-ray showing a pneumonia according to facility staff, EMS noted the patient was fairly disoriented, GCS 6, and started bag valve masking her because of respiratory distress and hypoxia with sats in the 87% range despite oxygenation. Patient was brought in bag-valve- mask in progress and was immediately intubated in the emergency department by ED attending. 07/12: Sedated, orally intubated on mechanical ventilation. 07/13 Patient is sedated with Fentanyl and intubated. Afebrile. 07/14 No events overnight, Sedated with Fentanyl and Versed. Afebrile. Failed CPAP trials yesterday. 07/15 No events overnight. Sedated and intubated. ABG on CPAP yesterday showed resp acidosis with PH 7.22 and CO2: 58 07/16 Patient remains sedated and intubated 07/17. No events overnight. Remains sedated and intubated 07/18 Patient remains intubated off sedation. Afebrile. 07/19 Patient s/p extubation yesterday on BIPAP overnight. Awake. ABG last night showed resp acidosis with PH: 7.24, pCO2: 66 07/20 Patient was reintubated yesterday for resp failure. Sedated and intubated. Afebrile. 07/21: new HCAP with GNRs in sputum. persistent respiratory failure. likely will require long-term ventilation and slow wean. will consult general surgery for re-do trach and gastric access. 07/22: no changes. no improvements. gen surgery planning PEG/Trach next week. 07/23: sputum growing enterobacter; now on Cefepime per ID. neuro exam still stable, but fails weaning trials quickly. 07/24: no changes. still failing cpap and weaning trials. CT abd/pelvis done at gen surg request without overt abscess at prior peg site. 07/25: s/p trach today. doing well. still failing cpap. approved for LTAC. surgical contra-indication to PEG placement with induration at old PEG site: will use DHT for enteral access and tube feeds. ID giving final recs for duration of therapy. stable for discharge to LTAC when bed available. 07/26 No events overnight. Patient was rejected by [facility] this morning per renal case manager. Afebrile. 07/27 Patient is sedated with Diprivan and intubated. Afebrile. 07/28 No events overnight. Off sedation. On ventilator via trach. 07/29 No events overnight. Tolerated CPAP for most f day yesterday. Afebrile. 07/30: Remains on mechanical ventilation via tracheostomy. Drowsy/ encephalopathic 07/31: Remains encephalopathic, on mechanical ventilation via tracheostomy. Received 1 unit PRBCs yesterday. No melena or rectal bleeding noted. 08/01: Remains encephalopathic, on mechanical ventilation via tracheostomy. Daily C Pap trials ongoing. Neurologic status remains poor. 08/02: no improvements, no changes. does not meet inpatient criteria, but funding problems prevent appropriate placement. overall prognosis very poor. unlikely that she will survive this medical illness. 08/03: continues without significant changes or improvements. 08/04: Remains encephalopathic, on mechanical ventilation via tracheostomy. Potassium elevated. Ordered Kayexalate. 08/05: Remains encephalopathic, on mechanical ventilation via tracheostomy. Potassium levels coming down. 08/06: Remains encephalopathic on mechanical ventilation via tracheostomy. Tolerating tube feeds. Daily C Pap trials 08/07: Patient awake this a.m., following commands answering yes and no questions. The patient remain on CPAP yesterday for an extended period of time. Plan to begin trach collar trials this a.m.. Patient noted 1 g/dl drop in hemoglobin repeat hemoglobin pending. 08/08: Tmax 99.6. Hemoglobin stabilized. The patient was initiated on T piece trials yesterday morning and sustained T piece trials for greater than 12 hours yesterday. Patient placed back on PRN antianxiety meds Xanax, states she is anxious. T piece trials reinitiated this a.m. Of patient noted to have elevated glucose levels persistent. Levemir 5 units subcutaneous twice a day hemoglobin A1c pending. Creatinine noted to be worsening nephrology is following. Tolerating tube feeds. 08/09: Patient tolerated T piece trials for approximately 14 hours, before returning to CPAP. The patient continues on CPAP 03/10.35. The patient is notably lethargic this a.m., receiving Dilaudid 1 dose last evening, will continue to monitor. Frequency narcotic has been decreased. Creatinine continues to worsen, discussed with nephrology Dr. Elder patient is not a candidate for hemodialysis. Palliative care reconsulted for evaluation and defining goals of care. 08/10: Afebrile .Patient continues on CPAP, responsive. Creatinine continues to worsen, it is felt that the patient will not do well on hemodialysis given her multiple comorbidities. Discussion with palliative care team has been made patient DNR status today following hinduism. 08/11: No acute events overnight. Creatinine continues to rise. is considering possibly Hospice, in the near future. Groin area erythematous and nystatin powder added to medication regimen. Eid maintained to prevent further skin breakdown and measure adequate urinary output. 08/12: Afebrile. No improvement in renal function. Nodding yes and no to questions, continues on CPAP. 08/13: No change in status, noted lethargy. Patient continues on CPAP responsive to questions nodding head. Hemodynamically stable. Palliative care following regarding defining goals of care. Objective Vital Signs Date Time Temp Pulse Resp B/P (MAP) Pulse Ox O2 Delivery O2 Flow Rate FiO2 08/13/17 13:03 100 35 08/13/17 06:00 80 08/13/17 04:00 98.9 22 147/67 (93) 08/10/17 11:50 T-piece 8.00 Intake and Output 08/13/17 08/13/17 08/14/17 08:00 16:00 00:00 Intake Total 2797 ml Output Total 350 ml Balance 2447 ml Result Diagram: 08/13/17 0431 08/13/17 0431 Imaging Last Impressions Abdomen X-Ray 08/04/17 0000 Signed Impressions: Service Date/Time: Friday, August 04, 2017 22:47 - CONCLUSION: Benign-appearing abdomen. Dobbhoff feeding tube tip in the mid stomach. Charlie Norris MD Chest X-Ray 07/30/17 0000 Signed Impressions: Service Date/Time: Sunday, July 30, 2017 02:49 - CONCLUSION: Probable mild CHF. Aldair Ziegler MD Abdomen/Pelvis CT 07/24/17 0000 Signed Impressions: Service Date/Time: Monday, July 24, 2017 14:57 - CONCLUSION: Pleural effusion and atelectasis right greater than left. Bowel gas pattern is unremarkable. No evidence of an abscess. Some induration anterior abdominal wall with some possible early fluid collection inferiorly within the lower pannus. Jame Preciado MD Head CT [id number]/11/[id number] Signed Impressions: Service Date/Time: Tuesday, July 11, 2017 21:23 - CONCLUSION: No acute intracranial abnormality Jaden Clark MD Last Impressions Abdomen X-Ray 07/25/17 0000 Signed Impressions: Service Date/Time: Tuesday, July 25, 2017 17:34 - CONCLUSION: Dobbhoff catheter tip in the distal stomach. Jasen Delvalle MD Abdomen/Pelvis CT 07/24/17 0000 Signed Impressions: Service Date/Time: Monday, July 24, 2017 14:57 - CONCLUSION: Pleural effusion and atelectasis right greater than left. Bowel gas pattern is unremarkable. No evidence of an abscess. Some induration anterior abdominal wall with some possible early fluid collection inferiorly within the lower pannus. Jame Preciado MD Chest X-Ray 07/21/17 0600 Signed Impressions: Service Date/Time: Friday, July 21, 2017 03:13 - CONCLUSION: Nasogastric tube now in place with the tip below the [id number] of the radiograph. No significant interval change in bilateral pulmonary opacity. Differential diagnosis includes pulmonary edema and infection. Angelito Lovett MD Head CT [id number]/11/171826 Signed Impressions: Service Date/Time: Tuesday, July 11, 2017 21:23 - CONCLUSION: No acute intracranial abnormality Jaden Clark MD Objective Remarks GENERAL: Morbidly obese elderly female s/p trach, awake nodding head responsive to yes and no questions SKIN: Warm and dry. HEAD: Normocephalic. EYES: No scleral icterus. No injection or drainage. NECK: trachea midline. trach in place CARDIOVASCULAR: Regular rate and rhythm. RESPIRATORY: on mechanical ventilation via tracheostomy, air entry decreased bilaterally at bases, scattered rhonchi. GASTROINTESTINAL: Abdomen soft, non-tender, nondistended. left non-healing ulcer area from prior PEG site. Dressing clean dry and intact on abdomen. MUSCULOSKELETAL: No cyanosis, or peripheral edema 2+. Neuro: Alert and oriented following commands x 4, on mechanical ventilation via tracheostomy A/P Assessment and Plan Assessment: 77yF with morbid obesity and recurrent healthcare associated pneumonia and hypoxic respiratory failure. s/p trach 07/25. contra-indicated for PEG given recent peg site induration. will use DHT for long-term enteral nutrition. no placement plan at this time. Worsening renal failure , due to her complex medical condition , she will not do well on hemodialysis. Plan Neuro: metabolic encephalopathy Seizure disorder Neuropathy Anxiety disorder Off sedation. Monitor neuro status. On Keppra 500mg Q12 oxycodone 5mg po q4h prn for pain Xanax 0.25 every 6 hours when necessary, patient previously on Xanax 0.5 every 6 hours, continue to monitor. Pulm: Acute hypoxic and hypercarbic Respiratory failure Recurrent healthcare associated pneumonia Reintubated 07/19 Continue with vent support keep sat >92% Bronchodilators, ICU vent bundle. SBT daily as lisa s/p trach 07/[address] Srinivas Kennedy toilet, trach care. Continue CPAP trials and attempt trach collar trials Trach collar trials initiated 08/07/17 CV: History of hypertension Monitor HR and BP keep MAP>65mmHg Amiodarone 200mg BID 2d echo 07/20: normal biventricular function, EF 60%, RVSP 47 mmHg. : Acute renal failure Free water deficit Monitor renal function, electrolytes replacement as needed. Nephrology consulted in view of rising BUN creatinine. Per nephrology patient will not do well on hemodialysis 2/2 her complex medical condition GI: Morbid Obesity Acute protein calorie malnutrition- moderate On tube feeds- Nepro with goal rate 65ml/hr, On roly Colace, Lactulose for bowel regimen. On Reglan 5mg IV Q8 PRN ICU electrolyte protocol ID: Recurrent HCAP pneumonia- resolved. Urinary tract infection- resolved. off abx. monitor clinically.. Urine cx: 07/11: Kleb ESBL, Citrobacter. Repeat urine cx 07/18 - Kirsten Albicans sputum cx: Enterobacter ID following. Nystatin powder to groin areas Heme: Anemia secondary to chronic disease Monitor CBC, on Ferrous sulfate and Folic acid Hep PLT ab -negative 1 unit PRBCs ordered on 07/30 for hemoglobin 7.2, no evidence of melena or rectal bleeding. Endo: Hypothyroidism Hyperglycemia of Critical illness SSI medium scale for glycemic control Levothyroxine 25 mcgs/d Obtain hemoglobin A1c 08/08 Levemir increased 10 units SQ BID GI prophylaxis- on Pepcid DVT prophylaxis- Heparin SQ Dispo: Awaiting placement. Patient was rejected by [facility] for not enough medicare days left. will look into vent-capable SNF facilities. does not meet inpatient criteria. consulted palliative care to assist with deciding goals of therapy as extermination inspector prognosis appears poor. Patient renal function continues to worsen, patient will not do well on hemodialysis. Palliative Care has been consulted and patient was made CODE STATUS DNR on08/11 Level 3 follow up Discussed with OFFSHORING MANAGER (Dasia) at bedside Physician Gianna Jeff MD Aug 13, 2017 16:15
--- NOTE | 2017-08-13 17:58 | HHI.HCPN ---
Reason for visit a. To assist with evaluation and management of symptoms including: Debility , dyspnea, encephalopathy, pain b. To assist medical decision maker(s) with: better understanding of current medical conditions; weighing benefits/burdens of medical treatment options; making medical treatment decisions. . Subjective/Interval History Follow up visit for symptom management and clarification of medical treatment goals. Mrs. Henson is a 76-year-old female with morbid obesity, recurrent HCAP and hypoxic respiratory failure status post tracheostomy on 08/01/2017. Patient remains on CPAP. Per notes, patient was nodding/shaking her head in response to questions this morning. Currently arouses minimally to verbal stimuli but does not open her eyes.. Hemodynamically stable. Patient having generalized discomfort as evidenced by restless activity, grimacing. PRN acetaminophen, oxycodone and hydromorphone are available. Patient has required hydromorphone 0.25 mg IV 2 in the past 24 hours. Hydromorphone and alprazolam dose/ frequency were decreased on 08/09/2017 due to increased lethargy and unresponsiveness Unable to place PEG tube; patient tolerating artificial nutrition via Dobbhoff. Glucerna 1.5 with goal rate of 65 mL per hour per M.D. Total protein: 2.8, albumin 0.5. Renal functioning deteriorating. BUN: 109, creatinine 2.95, GFR 16. Non- oliguric. Due to patient's multiple comorbid conditions and deconditioned status , she is not a candidate for hemodialysis. . Advance Directives Advance Directive Specifics Documented care wishes: No known document wishes have been completed. . Objective Vital Signs Date Time Temp Pulse Resp B/P (MAP) Pulse Ox O2 Delivery O2 Flow Rate FiO2 08/13/17 16:16 100 35 08/13/17 13:03 100 35 08/13/17 07:42 100 35 08/13/17 06:00 80 08/13/17 04:08 98 35 08/13/17 04:00 35 08/13/17 04:00 98.9 82 22 147/67 (93) 98 08/13/17 04:00 82 08/13/17 02:00 75 08/13/17 01:08 96 35 08/13/17 00:00 76 08/13/17 00:00 35 08/13/17 00:00 98.9 76 113/55 (74) 96 08/12/17 22:00 62 08/12/17 20:49 100 35 08/12/17 20:00 35 08/12/17 20:00 60 08/12/17 20:00 98.9 60 20 78/37 (51) 95 08/12/17 18:00 69 Intake & Output 08/13/17 08/13/17 07:00 19:00 Intake Total 3797 ml Output Total 350 ml Balance 3447 ml IV Total 3000 ml Tube Feeding 697 ml Other 100 ml Output Urine Total 350 ml # Bowel Movements 0 Physical Exam CONSTITUTIONAL/GENERAL: This is a morbidly obese, female patient status post tracheostomy on CPAP TUBES/LINES/DRAINS: Tracheostomy, Dobbhoff, Female external catheter, PIV SKIN: Generalized pallor. Ecchymosis on bilateral upper extremities. Wounds on upper extremities bilaterally HEAD: Atraumatic. Normocephalic. EYES: No scleral icterus. No injection or drainage. ENT: Nose without bleeding or purulent drainage. NECK: Trachea midline. Tracheostomy to CPAP CARDIOVASCULAR: Regular rate and rhythm without murmurs, gallops, or rubs. Upper extremities edematous bilaterally RESPIRATORY/CHEST: Status post tracheostomy on mechanical ventilation. Breath sounds coarse, diminished throughout. GASTROINTESTINAL: Protuberant abdomen with nonhealing ulcer from previous PEG tube site. GENITOURINARY: Without palpable bladder distension. MUSCULOSKELETAL: Extremities without clubbing or cyanosis. No obvious deformities. Edema NEUROLOGICAL: Patient arouses minimally to verbal stimuli but does not open her eyes. PSYCHIATRIC: Unable to assess due to patient's clinical condition . Diagnostic Tests Laboratory Laboratory Tests Test 08/11/17 12:15 08/12/17 07:30 08/13/17 04:31 Blood Urea Nitrogen 101 MG/DL (7-18) 106 MG/DL (7-18) 109 MG/DL (7-18) Creatinine 2.84 MG/DL (0.50-1.00) 2.93 MG/DL (0.50-1.00) 2.95 MG/DL (0.50-1.00) Random Glucose 234 MG/DL (74-106) 134 MG/DL (74-106) 212 MG/DL (74-106) Calcium Level 9.7 MG/DL (8.5-10.1) 9.6 MG/DL (8.5-10.1) 9.3 MG/DL (8.5-10.1) Sodium Level 141 MEQ/L (136-145) 140 MEQ/L (136-145) 139 MEQ/L (136-145) Potassium Level 4.5 MEQ/L (3.5-5.1) 4.5 MEQ/L (3.5-5.1) 4.5 MEQ/L (3.5-5.1) Chloride Level 103 MEQ/L (98-107) 102 MEQ/L (98-107) 102 MEQ/L (98-107) Carbon Dioxide Level 29.5 MEQ/L (21.0-32.0) 32.4 MEQ/L (21.0-32.0) 29.7 MEQ/L (21.0-32.0) Anion Gap 9 MEQ/L (5-15) 6 MEQ/L (5-15) 7 MEQ/L (5-15) Estimat Glomerular Filtration Rate 16 ML/MIN (>89) 16 ML/MIN (>89) 16 ML/MIN (>89) White Blood Count 6.0 TH/MM3 (4.0-11.0) Red Blood Count 2.33 MIL/MM3 (4.00-5.30) Hemoglobin 7.4 GM/DL (11.6-15.3) Hematocrit 22.7 % (35.0-46.0) Mean Corpuscular Volume 97.5 FL (80.0-100.0) Mean Corpuscular Hemoglobin 31.6 PG (27.0-34.0) Mean Corpuscular Hemoglobin Concent 32.4 % (32.0-36.0) Red Cell Distribution Width 18.4 % (11.6-17.2) Platelet Count 171 TH/MM3 (150-450) Mean Platelet Volume 9.6 FL (7.0-11.0) Result Diagram: 08/13/17 0431 08/13/17 0431 Procedures 07/11/2017: Intubation 07/11/2017: OGT placement 07/18/2017: Extubation 07/19/2017: Reintubation 07/25/2017: Tracheostomy . Assessment and Plan Disease Oriented Problem List: (1) Metabolic encephalopathy (2) Seizure disorder (3) Neuropathy (4) Acute respiratory failure with hypoxia and hypercarbia (5) HCAP (healthcare-associated pneumonia) (6) Hypertension (7) Acute kidney insufficiency (8) Protein calorie malnutrition (9) UTI (urinary tract infection) (10) Hypothyroidism (11) Respiratory distress (12) Pneumonia Symptom Scale: (1) Debility 0-10 Scale: Unable to quantify (2) Dyspnea 0-10 Scale: Unable to quantify (3) Encephalopathy 0-10 Scale: Unable to quantify (4) Pain 0-10 Scale: 8 Comment: Patient reporting intermittent abdominal and back pain, both rated 8 out of 10. Back pain is described as a constant ache that does not radiate. PRN medications are available, being sparingly use. Pertinent Non-Medical Issues Psychosocial: Patient is originally from [place]. She moved to [place] where she met her . Patient has been 2 times. She had 2 children with her first . Her daughter (Manuela) and son (Landon) lives in [place]. Patient has been to her current for approximately 37 years. She worked with Medicare processing claims. 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 Ethical issues impacting care: No known ethical issues impacting care at this time. . Important Contacts Reji Henson, : [phone] Manuela Kelly: [phone] . Prognosis Patient is a morbidly obese female with recurrent healthcare associated pneumonia, hypoxic respiratory failure and non-healing wounds status post tracheostomy placement. She has had multiple hospitalizations with subsequent LTAC/SNF placement since Dec, 2016. Overall prognosis is very poor; patient will likely not survive this medical illness. . Code Status: No Code Plan * No CODE * Decision-making: Patient is currently unable to participate in establishment of medical treatment goals given her clinical condition. It is unknown if she will regain capacity. Per [place] statutes, in the absence of written advanced * Discussed patient's case with bedside nurse (Karla) and Dr. Newman. * Palliative care met with patient's spouse this afternoon. Hospice was again introduced; patient's states "she has been through so much, she just doesn't have anything left." He would like to consider overnight-possible hospice consult tomorrow 08/14/2017 * Symptom management-pain: Patient having generalized discomfort as evidenced by restless activity, grimacing. PRN acetaminophen, oxycodone and hydromorphone are available. Patient has required hydromorphone 0.25 mg IV 2 in the past 24 hours. Hydromorphone dose was decreased secondary to lethargy/ changes in mentation. Palliative care will monitor PRN requirements and make recommendations as indicated. * Symptom management-dyspnea: Patient with recurrent HCAP and hypoxic respiratory failure. Status post tracheostomy on 07/25/2017. Follow-up chest x- ray on 07/30/2017 with probable mild CHF. Tolerating CPAP today * Symptom management-debility: Patient is a morbidly obese female who has had some degree of debility since the early s/p an infection in her spine requiring surgery. Prior to Dec, 2016 the patient was able to ambulate short distances with a walker. Her states she was otherwise independent for all ADLs. Patient had ongoing hospitalizations and LTAC/SNF recent symptoms 2016. Physical therapy and occupational therapy following. Patient remains dependent for all mobility, ongoing passive ROM exercises. Patient unable to participate secondary to lethargy. Ongoing aggressive goals at this time; patient awaiting placement. However patient was rejected by [facility] because she did not have enough Medicare days left. Will look into vent- capable SNF facilities. It appears there is one in [place]; family is looking into facilities in [place]. * Symptom management-encephalopathy: CT head on 07/11/17 no acute intracranial abnormalities. Deteriorating neurological status. Patient arouses minimally to verbal stimuli but does not open eyes. * Palliative care will continue to follow this patient throughout her hospitalization to establish trust, assist with symptom management and clarification of medical treatment goals. . Attestation To help prompt me to consider important information that might be impacting today's encounter and assessment, information from prior notes written by myself or my colleagues may have been "brought forward" into today's note. My signature on this note, however, is an attestation that I personally performed the exam, history, and/or decision-making noted today, and, unless otherwise indicated, the interactions with patient, family, and staff as well as the review of records all occurred today. I also attest that the listed assessment and stated plan reflect my best clinical judgment today based on the combination of historical information, prior notes, and today's exam/ interactions. When time spent is documented, it refers only to time spent today by the signer, or if indicated, combined time spent today by collaborating physician/nurse practitioner. Zo Newell Aug 13, 2017 17:58
[2017-08-13] MEDS ORDERED: INSULIN NovoLIN REGULAR SUPPLEMENTAL SCALE SQ SCH (18:00)
[2017-08-13] MEDS: AMITRIPTYLINE HCL 10 MG TAB PO SCH (22:02)
[2017-08-14] VITALS (24 sets, daily range): BP systolic 105–149; BP diastolic 49–67; PULSE 59–83; RESP 17–22; TEMP 97.6–98.1; O2SAT 96–100
[2017-08-14] MEDS: CHLORHEXIDINE GLUCONATE 2 % 1 PACK (2 CLOTHS) TOP SCH (04:00)
[2017-08-14] MEDS: HEPARIN SODIUM - SQ 10,000 UNITS/ML VIAL SQ SCH ×3 (05:45→20:45)
[2017-08-14] MEDS: LEVOTHYROXINE SODIUM 25 MCG TAB PO SCH (05:46)
[2017-08-14] MEDS: INSULIN NovoLIN REGULAR SUPPLEMENTAL SCALE SQ SCH ×3 (05:46→18:00)
[2017-08-14] MEDS: HYDROmorphone HCL PF 2 MG/ML VIAL IV PUSH PRN ×2 (06:26→18:18)
[2017-08-14 07:05] LABS: BICARBONATE 29.2 MEQ/L (21.0-32.0); CALCIUM 9.8 MG/DL (8.5-10.1); CREATININE 3.17 MG/DL (0.50-1.00)
[2017-08-14] MEDS: LACTULOSE SYRUP 20 GM/30 ML CUP PO SCH ×3 (09:34→18:17)
[2017-08-14] MEDS: INSULIN DETEMIR 100 UNITS/ML VIAL SQ SCH ×2 (09:34→20:46)
[2017-08-14] MEDS: FERROUS SULFATE 300 MG /5ML UDC PO SCH ×2 (09:34→20:46)
[2017-08-14] MEDS: MULTIVITAMIN TAB PO SCH (09:34)
[2017-08-14] MEDS: levETIRAcetam 500 MG/5 ML UDC NG SCH ×2 (09:34→20:45)
[2017-08-14] MEDS: FAMOTIDINE 20 MG TAB NG SCH ×2 (09:35→20:47)
[2017-08-14] MEDS: busPIRone HCL 10 MG TAB PO SCH ×2 (09:35→20:47)
[2017-08-14] MEDS: ASCORBIC ACID 500 MG TAB PO SCH ×2 (09:35→20:45)
[2017-08-14] MEDS: FOLIC ACID 1 MG TAB PO SCH (09:35)
[2017-08-14] MEDS: DOCUSATE SODIUM 50 MG/SENNA 8.6 MG TAB PO SCH ×2 (09:35→20:47)
[2017-08-14] MEDS: ZINC SULFATE 220 MG CAP PO SCH (09:35)
[2017-08-14] MEDS: GABAPENTIN 300 MG CAP PO SCH (09:35)
[2017-08-14] MEDS: AMIODARONE 200 MG TAB PO SCH ×2 (09:35→20:47)
--- NOTE | 2017-08-14 11:06 | HHI.NPPN ---
Subjective General Problems: Anemia, Edema Renal Failure: Acute Interval History Worsening renal failure. at bedside, feels her mental status is improving. (Nicki Zapata) Review of Systems General General Remarks generalized pain (Nicki Zapata) Objective Data Data Vital Signs Date Time Temp Pulse Resp B/P (MAP) Pulse Ox O2 Delivery O2 Flow Rate FiO2 08/14/17 10:00 80 22 149/67 (94) 98 08/14/17 10:00 80 08/14/17 09:06 98 35 08/14/17 09:00 69 21 132/58 (82) 97 08/14/17 09:00 69 08/14/17 08:00 97.6 68 19 122/58 (79) 97 08/14/17 08:00 68 08/14/17 07:00 66 08/14/17 07:00 66 22 115/56 (75) 96 08/14/17 06:56 18 08/14/17 06:00 83 08/14/17 04:33 98 Nasal Cannula 08/14/17 04:30 100 35 08/14/17 04:00 35 08/14/17 04:00 59 08/14/17 04:00 97.8 59 105/49 (67) 100 08/14/17 02:00 66 08/14/17 00:12 100 35 08/14/17 00:00 35 08/14/17 00:00 70 08/14/17 00:00 98.0 70 119/59 (79) 100 08/13/17 22:00 69 08/13/17 20:05 100 35 08/13/17 20:00 98.2 61 99/44 (62) 100 08/13/17 20:00 61 08/13/17 20:00 35 08/13/17 18:00 64 87/52 (64) 100 08/13/17 18:00 64 08/13/17 17:00 61 08/13/17 17:00 61 88/52 (64) 100 08/13/17 16:16 100 35 08/13/17 16:00 35 08/13/17 16:00 98.2 63 103/46 (65) 100 08/13/17 16:00 63 08/13/17 15:00 59 92/42 (59) 100 08/13/17 15:00 59 08/13/17 14:00 67 115/51 (72) 100 08/13/17 14:00 67 08/13/17 13:03 100 35 08/13/17 13:00 72 08/13/17 13:00 72 151/63 (92) 100 08/13/17 12:01 78 08/13/17 12:01 98.5 78 140/64 (89) 99 08/13/17 12:00 35 (Nicki Zapata) -: 08/13/17 0431 08/14/17 0616 Imaging Last 72 hours Impressions Chest X-Ray 08/13/17 0600 Signed Impressions: Service Date/Time: Sunday, August 13, 2017 03:11 - CONCLUSION: 1. Patchy alveolar disease characteristic of edema or pneumonia. There has been no significant change when compared to the prior exam. Gucci Waldrop MD Tubes & Lines: [facility] Tubes [employer] Lines Comment ivelisse tijerina (Nicki Zapata) Physical Exam General Appearance: Comfortable, Obese, Malnourished Appearance Remarks chronically ill appearing (Nicki Zapata) Eyes Eye Exam: Pupils Equal (Nicki Zapata) Throat Throat Exam: Oral Mucosa [place] & Moist (Nicki Zapata) Neck Neck Exam: Neck Supple (Nicki Zapata) Pulmonary Resp Exam: Clear Bilaterally, No Distress, Diminished Breath Sounds Resp Remarks trach (Nicki Zapata) Cardiology CV Exam: Regular, Normal Sinus Rhythm (Nicki Zapata) Gastrointestinal/Abdomen GI Exam: Soft, Non-Tender, Bowel Sounds Present (Nicki Zapata) Musculoskeletal MS Exam: Unable to Ambulate (Nicki Zapata) Integumentary Skin Exam: Warm, Dry (Nicki Zapata) Extremeties Extremities Exam: Pedal Pulses Palpable, Moderate Edema, Pitting Edema, Dependent Edema (Nicki Zapata) Neurologic Neuro Exam: Moving All Extremities, Obtunded (Nicki Zapata) VTE Prophylaxis Device: SCDs (Nicki Zapata) Assessment/Plan Discussed Condition With: Spouse Assessment Summary: RADHA/Acute Renal Failure, Fluid/Volume Overload, Hypertension Problem List: (1) Acute kidney insufficiency ICD Codes: N28.9 - Disorder of kidney and ureter, unspecified Plan: RADHA could be due to allergic interstitial nephritis, although she appears to have suffered mulitple hypoperfusion insults over past week. May have progressed to ATN Renal function is worse. Her fluid status is positive, restart Lasix. Avoid hypotension. Avoid nephrotoxic agents. Renally dose if appropriate. Due to multiple comorbidities, she is not a candidate for dialysis, will not do well. Palliative to meet with family. the would like a second opinion regarding renal failure and dialysis. (2) Hyperkalemia ICD Codes: E87.5 - Hyperkalemia Plan: Improved. Continue to monitor. (3) Acute respiratory failure with hypoxia and hypercarbia ICD Codes: J96.01 - Acute respiratory failure with hypoxia; J96.02 - Acute respiratory failure with hypercapnia Plan: On CPAP, trach. (4) Hypertension ICD Codes: I10 - Essential (primary) hypertension Plan: Hypotensive overnight; hold antihypertensives if SBP < 100mmHg (5) Encephalopathy ICD Codes: G93.40 - Encephalopathy, unspecified Plan: Prognosis appears to be poor. (Nicki Zapata) Plan patient was seen and examined. Because of multiple comorbidities, I had suggested to the that she will not do well on dialysis, and had recommended palliative care, hospice. "she is not a candidate for dialysis" is not accurate description of my opinion and recommendation to the patient . If the insists on proceeding with dialysis, I would not refuse to offer that service. I have read the notes. Palliative care had brought up the topic of hospice. The now wants a second opinion as he thinks that "her kidneys were never treated". I will see her only if necessary, I will sign off at this time. (Kendrick Liriano MD) Nicki Zapata Aug 14, 2017 11:06 Kendrick Liriano MD Aug 14, 2017 12:37
[2017-08-14] MEDS: PADIMATE (CHAPSTICK) 4.5 GM TUBE TOPICAL PRN (12:42)
[2017-08-14] MEDS: ARTIFICIAL TEARS OPTH SOLN 15 ML BTL EACH EYE SCH ×3 (12:42→18:00)
[2017-08-14] MEDS: SODIUM CHLORIDE 0.9% FLUSH 10 ML FLUSH IV FLUSH SCH ×2 (12:43→20:47)
[2017-08-14] MEDS: NYSTATIN 100,000 U/GM PWD 15 GM BTL TOPICAL SCH ×2 (12:44→20:46)
--- NOTE | 2017-08-14 14:30 | PD.CONS ---
HPI Service Nephrology Consult Requested By Dr. Liriano Reason for Consult Need second opinion regarding advanced renal failure and fluid overload Primary Care Physician [facility] History of Present Illness 77-year-old morbidly obese female who was admitted to an followed by critical care on July 11, she has respiratory failure requiring intubation and on required tracheostomy subsequently PEG tube was placed she ran in fluid overload edema patient has underlying diabetes morbid obesity, chronic disability bedbound status, congestive heart failure, EF was 60% however appear pressure 47.2 mm Hg remains on ventilator, patient is passing urine she has a high BUN and creatinine is 3.17 Review of Systems ROS Limitations: Clinical Condition Past Family Social History Allergies: Coded Allergies: FRANCK Inhibitors (Verified Allergy, Unknown, 07/11/17) Czdktke-Qsg-Kge Reductase Inhibitor (Verified Allergy, Unknown, 07/11/17) Past Medical History Morbid obesity Hypothyroidism Hypertension DM GERD Anxiety Atrial fibrillation CHF COPD Seizure disorder Neuropathy . Past Surgical History Exploratory laparotomy with cholecystectomy and appendectomy-04/2017 Previous tracheostomy and PEG placement, removed Postoperative abdominal wound from 04/2017, very slow to heal Back surgery Reported Medications Reported Meds & Active Scripts Active Diflucan (Fluconazole) 100 Mg Tab 100 Mg PO DAILY 14 Days Reported Zinc Sulfate 220 Mg (50 Mg Zinc) Cap 220 Mg PO DAILY Ascorbic Acid 500 Mg Tab 500 Mg PO BID Tramadol (Tramadol HCl) 50 Mg Tab 50 Mg PO Q6H PRN Spironolactone 25 Mg Tab 12.5 Mg PO HS Santyl Topical (Collagenase) 250 Unit/Gm Oint 1 Applic TOPICAL DAILY Probiotic (Lactobacillus Acidophilus) 10 Billion Cell Cap 1 Cap PO TIDAC Prednisone 10 Mg Tab 10 Mg PO DAILY Multiple Vitamin 1 Tab 1 Tab PO DAILY Modafinil 200 Mg Tab 200 Mg PO DAILY Metoprolol Tartrate 25 Mg Tab 25 Mg PO BID Levothyroxine (Levothyroxine Sodium) 25 Mcg Tab 25 Mcg PO DAILY Levetiracetam 500 Mg Tab 500 Mg PO BID Combivent Respimat Inh (Ipratropium-Albuterol Inh) 20-100 Custodial/Act Aero 1 Puff INH QID Levemir Inj (Insulin Detemir) 1,000 unit/ 10 ML Vial 25 Units SQ BID Do not mix with any other Insulin. Humalog Inj (Insulin Human Lispro) 1,000 Unit/10 Ml Vial 3-12 Units SQ ACHS Max dose at bedtime:( )units; sugars < 70,(0)units; sugars 150-199,(2)units; sugars 200-249,(4)units; sugars 250-299,(7)units; sugars 300-349,(10)units; sugars more than 349,(12)units. Guaifenesin DM Liq (Guaifenesin-Dextromethorphan Liq) 10-100 Mg/5 Ml Liq 7.5 Ml PO Q6HR PRN Glucagon Emergency Inj Kit (Glucagon (Rdna) Inj Kit) 1 Mg Kit 1 Mg IM ONCE PRN Gabapentin 300 Mg Cap 300 Mg PO TID Furosemide 40 Mg Tab 40 Mg PO DAILY Folic Acid 0.4 Mg Tab 1 Mg PO DAILY Ferrous Sulfate 325 Mg (65 Mg Iron) Tablet 325 Mg PO DAILY Famotidine 20 Mg Tab 20 Mg PO BID Dulcolax Supp (Bisacodyl) 10 Mg Supp 10 Mg RECTAL DAILY PRN Docusate Sodium 100 Mg Cap 100 Mg PO BID PRN Citroma Liq (Magnesium Citrate) 300 Ml Liq 296 Ml PO DIRECTED Buspirone (Buspirone HCl) 10 Mg Tab 10 Mg PO BID Amitriptyline (Amitriptyline HCl) 10 Mg Tab 10 Mg PO HS Amiodarone (Amiodarone HCl) 200 Mg Tab 200 Mg PO BID Alprazolam 0.5 Mg Tab 0.5 Mg PO Q6H PRN Tylenol (Acetaminophen) 325 Mg Tab 650 Mg PO Q4H PRN Tylenol (Acetaminophen) 325 Mg Tab 650 Mg PO Q4H PRN Active Ordered Medications Current Medications Medications (Trade) Dose Ordered Sig/Kerri Route Start Time Stop Time Status Last Admin (NS Flush) 2 ml UNSCH PRN IV FLUSH 07/11/17 19:15 08/13/17 13:26 (NS Flush) 2 ml BID IV FLUSH 07/11/17 21:00 08/14/17 12:43 (Tylenol) 650 mg Q6H PRN PO 07/11/17 19:15 08/02/17 20:41 (Tears Naturale Opth Soln) 1 drop TID EACH EYE 07/12/17 09:00 08/14/17 12:42 (Zofran Inj) 4 mg Q6H PRN IV PUSH 07/11/17 19:15 (Heparin Inj) 5,000 units Q8H SQ 07/11/17 21:00 Future hold 08/14/17 12:42 Miscellaneous Information 1 Q361D XX 07/11/17 19:15 07/11/17 19:15 (Chlorhexidine 2% Cloth) Taper DAILY@04 TOP 07/12/17 04:00 07/08/18 03:59 08/14/17 04:00 (Chlorhexidine 2% Cloth) 3 pack UNSCH PRN TOP 07/11/17 19:15 (Mare-Colace) 1 tab BID PO 07/11/17 21:00 08/14/17 09:35 (Milk Of Magnesia Liq) 30 ml Q12H PRN PO 07/11/17 19:15 (Senokot) 17.2 mg Q12H PRN PO 07/11/17 19:15 (Dulcolax Supp) 10 mg DAILY PRN RECTAL 07/11/17 19:15 (Cordarone) 200 mg BID PO 07/11/17 21:00 08/14/17 09:35 (Elavil) 10 mg HS PO 07/11/17 21:00 08/13/17 22:02 (Vitamin C) 500 mg BID PO 07/11/17 21:00 08/14/17 09:35 (Buspar) 10 mg BID PO 07/11/17 21:00 08/14/17 09:35 (Santyl Oint) 1 applic DAILY TOPICAL 07/12/17 09:00 08/13/17 09:42 (Folate) 1 mg DAILY PO 07/12/17 09:00 08/14/17 09:35 (Synthroid) 25 mcg DAILY@0600 PO 07/12/17 06:00 08/14/17 05:46 (Zinc Sulfate) 220 mg DAILY PO 07/12/17 09:00 08/14/17 09:35 (Theragran) 1 tab DAILY PO 07/12/17 09:00 08/14/17 09:34 (Keppra Liq) 500 mg Q12HR NG 07/12/17 13:00 08/14/17 09:34 (Ferrous Sulfate Liq) 300 mg BID PO 07/12/17 13:00 08/14/17 09:34 (Neurontin) 600 mg DAILY PO 07/13/17 09:00 08/14/17 09:35 (Lactulose Liq) 30 ml TID PO 07/14/17 13:00 08/14/17 12:42 (Apresoline Inj) 10 mg Q6H PRN IV PUSH 07/18/17 09:00 08/02/17 18:52 (D50w (Vial) Inj) 50 ml UNSCH PRN IV PUSH 07/19/17 08:30 (Glucagon Inj) 1 mg UNSCH PRN OTHER 07/19/17 08:30 (Reglan Inj) 5 mg Q8H PRN IV PUSH 07/27/17 08:45 (Roxicodone Intensol Liq) 5 mg Q4H PRN PO 08/02/17 10:00 08/12/17 17:34 (Chapstick) 1 applic UNSCH PRN TOPICAL 08/07/17 09:15 08/14/17 12:42 (Duoneb Neb) 1 ampule Q2HR NEB PRN NEB 08/07/17 09:15 08/13/17 13:01 (Xanax) 0.25 mg Q8H PRN PO 08/09/17 11:15 (Dilaudid Pf Inj) 0.25 mg Q6H PRN IV PUSH 08/09/17 11:15 08/14/17 06:26 (Pepcid) 10 mg BID NG 08/10/17 09:00 08/14/17 09:35 (Pill Splitter) 1 ea UNSCH PRN OTHER 08/09/17 16:30 (Lasix Inj) 40 mg BID@,18 IV PUSH 08/10/17 18:00 Future hold 08/12/17 17:34 (Mycostatin Powder) 1 applic Q12HR TOPICAL 08/11/17 21:00 08/14/17 12:44 (Levemir Inj) 10 units Q12HR SQ 08/11/17 21:00 08/14/17 09:34 (NovoLIN R SUPPLEMENTAL SCALE) 1 Q6H SQ 08/14/17 00:00 08/14/17 12:00 Family History Noncontributory Social History Was living in [facility] Physical Exam Vital Signs Vital Signs Date Time Temp Pulse Resp B/P (MAP) Pulse Ox O2 Delivery O2 Flow Rate FiO2 08/14/17 11:54 100 35 08/14/17 10:00 80 22 149/67 (94) 98 08/14/17 10:00 80 08/14/17 09:06 98 35 08/14/17 09:00 69 21 132/58 (82) 97 08/14/17 09:00 69 08/14/17 08:00 97.6 68 19 122/58 (79) 97 08/14/17 08:00 68 08/14/17 08:00 35 08/14/17 07:00 66 08/14/17 07:00 66 22 115/56 (75) 96 08/14/17 06:56 18 08/14/17 06:00 83 08/14/17 04:33 98 Nasal Cannula 08/14/17 04:30 100 35 08/14/17 04:00 35 08/14/17 04:00 59 08/14/17 04:00 97.8 59 105/49 (67) 100 08/14/17 02:00 66 08/14/17 00:12 100 35 08/14/17 00:00 35 08/14/17 00:00 70 08/14/17 00:00 98.0 70 119/59 (79) 100 08/13/17 22:00 69 08/13/17 20:05 100 35 08/13/17 20:00 98.2 61 99/44 (62) 100 08/13/17 20:00 61 08/13/17 20:00 35 08/13/17 18:00 64 87/52 (64) 100 08/13/17 18:00 64 08/13/17 17:00 61 08/13/17 17:00 61 88/52 (64) 100 08/13/17 16:16 100 35 08/13/17 16:00 35 08/13/17 16:00 98.2 63 103/46 (65) 100 08/13/17 16:00 63 08/13/17 15:00 59 92/42 (59) 100 08/13/17 15:00 59 Physical Exam GENERAL: Well-nourished, morbidly obese well-developed patient. SKIN: Warm and dry. HEAD: Normocephalic. EYES: No scleral icterus. No injection or drainage. NECK: Supple, tracheostomy in place CARDIOVASCULAR: S1 and S2 RESPIRATORY: Breath sounds equal bilaterally. No accessory muscle use. GASTROINTESTINAL: Abdomen soft, non-tender, nondistended. EXTREMITIES: No cyanosis, 3+ edema. NEUROLOGICAL: Awake, on ventilator Laboratory Laboratory Tests Test 08/14/17 06:16 Blood Urea Nitrogen 117 Creatinine 3.17 Random Glucose 203 Calcium Level 9.8 Sodium Level 138 Potassium Level 4.7 Chloride Level 100 Carbon Dioxide Level 29.2 Anion Gap 9 Estimat Glomerular Filtration Rate 14 Date/Time Source Procedure Growth Status 07/20/17 14:00 Blood Peripheral Aerobic Blood Culture - Final NO GROWTH IN 5 DAYS Complete 07/20/17 14:00 Blood Peripheral Anaerobic Blood Culture - Final NO GROWTH IN 5 DAYS Complete 07/20/17 10:10 Sputum Endotracheal Gram Stain - Final Complete 07/20/17 10:10 Sputum Culture - Final Enterobacter Cloacae Complete 07/18/17 05:00 Urine Catheterized Urine Urine Culture - Final Kirsten Albicans Complete Result Diagram: 08/13/17 0431 08/14/17 0616 Imaging Last Impressions Chest X-Ray 08/13/17 0600 Signed Impressions: Service Date/Time: Sunday, August 13, 2017 03:11 - CONCLUSION: 1. Patchy alveolar disease characteristic of edema or pneumonia. There has been no significant change when compared to the prior exam. Gucci Waldrop MD Abdomen X-Ray 08/04/17 0000 Signed Impressions: Service Date/Time: Friday, August 04, 2017 22:47 - CONCLUSION: Benign-appearing abdomen. Dobbhoff feeding tube tip in the mid stomach. Charlie Norris MD Abdomen/Pelvis CT 07/24/17 0000 Signed Impressions: Service Date/Time: Monday, July 24, 2017 14:57 - CONCLUSION: Pleural effusion and atelectasis right greater than left. Bowel gas pattern is unremarkable. No evidence of an abscess. Some induration anterior abdominal wall with some possible early fluid collection inferiorly within the lower pannus. Jame Preciado MD Head CT 07/11/17 1827 Signed Impressions: Service Date/Time: Tuesday, July 11, 2017 21:23 - CONCLUSION: No acute intracranial abnormality Jaden Clark MD Assessment and Plan Problem List: (1) Acute kidney insufficiency ICD Codes: N28.9 - Disorder of kidney and ureter, unspecified Plan: RADHA with prolonged hospitalization and multiple comorbidities She does have component of congestive heart failure, pulmonary artery pressures are increased also she has peripheral swelling mainly and is suffering from right sided heart failure She has peripheral edema Skin breakdown I discussed dialysis with patient's told him that she is bedbound and this is not going to change, even if he started on dialysis is just a prolongation with unlikely chances of getting her off the bed That means she will have tracheostomy possible ventilator on PEG and medication she will be living on artificially with the help of machine and even if we do dialysis status is not going to change I therefore agree with the primary scientific director that dialysis is not going to change the outcome, given her comorbid conditions her prognosis remains poor. (2) Hyperkalemia ICD Codes: E87.5 - Hyperkalemia Plan: Improved. Continue to monitor. (3) Acute respiratory failure with hypoxia and hypercarbia ICD Codes: J96.01 - Acute respiratory failure with hypoxia; J96.02 - Acute respiratory failure with hypercapnia Plan: On CPAP, trach. (4) Hypertension ICD Codes: I10 - Essential (primary) hypertension Plan: Hypotensive overnight; hold antihypertensives if SBP < 100mmHg (5) Encephalopathy ICD Codes: G93.40 - Encephalopathy, unspecified Plan: Prognosis appears to be poor. Gail Garcia MD Aug 14, 2017 14:30
--- NOTE | 2017-08-14 15:13 | HHI.CCPN ---
Subjective Remarks/Hospital Course 07/11: 77-year-old morbidly obese female patient sent in from [facility], due to increased lethargy for the last 2 days, hypoglycemia early in the day with sugars of 44, given glucagon, chest x-ray showing a pneumonia according to facility staff, EMS noted the patient was fairly disoriented, GCS 6, and started bag valve masking her because of respiratory distress and hypoxia with sats in the 87% range despite oxygenation. Patient was brought in bag-valve- mask in progress and was immediately intubated in the emergency department by ED attending. 07/12: Sedated, orally intubated on mechanical ventilation. 07/13 Patient is sedated with Fentanyl and intubated. Afebrile. 07/14 No events overnight, Sedated with Fentanyl and Versed. Afebrile. Failed CPAP trials yesterday. 07/15 No events overnight. Sedated and intubated. ABG on CPAP yesterday showed resp acidosis with PH 7.22 and CO2: 58 07/16 Patient remains sedated and intubated 07/17. No events overnight. Remains sedated and intubated 07/18 Patient remains intubated off sedation. Afebrile. 07/19 Patient s/p extubation yesterday on BIPAP overnight. Awake. ABG last night showed resp acidosis with PH: 7.24, pCO2: 66 07/20 Patient was reintubated yesterday for resp failure. Sedated and intubated. Afebrile. 07/21: new HCAP with GNRs in sputum. persistent respiratory failure. likely will require long-term ventilation and slow wean. will consult general surgery for re-do trach and gastric access. 07/22: no changes. no improvements. gen surgery planning PEG/Trach next week. 07/23: sputum growing enterobacter; now on Cefepime per ID. neuro exam still stable, but fails weaning trials quickly. 07/24: no changes. still failing cpap and weaning trials. CT abd/pelvis done at gen surg request without overt abscess at prior peg site. 07/25: s/p trach today. doing well. still failing cpap. approved for LTAC. surgical contra-indication to PEG placement with induration at old PEG site: will use DHT for enteral access and tube feeds. ID giving final recs for duration of therapy. stable for discharge to LTAC when bed available. 07/26 No events overnight. Patient was rejected by [facility] this morning per family caseworker. Afebrile. 07/27 Patient is sedated with Diprivan and intubated. Afebrile. 07/28 No events overnight. Off sedation. On ventilator via trach. 07/29 No events overnight. Tolerated CPAP for most f day yesterday. Afebrile. 07/30: Remains on mechanical ventilation via tracheostomy. Drowsy/ encephalopathic 07/31: Remains encephalopathic, on mechanical ventilation via tracheostomy. Received 1 unit PRBCs yesterday. No melena or rectal bleeding noted. 08/01: Remains encephalopathic, on mechanical ventilation via tracheostomy. Daily C Pap trials ongoing. Neurologic status remains poor. 08/02: no improvements, no changes. does not meet inpatient criteria, but funding problems prevent appropriate placement. overall prognosis very poor. unlikely that she will survive this medical illness. 08/03: continues without significant changes or improvements. 08/04: Remains encephalopathic, on mechanical ventilation via tracheostomy. Potassium elevated. Ordered Kayexalate. 08/05: Remains encephalopathic, on mechanical ventilation via tracheostomy. Potassium levels coming down. 08/06: Remains encephalopathic on mechanical ventilation via tracheostomy. Tolerating tube feeds. Daily C Pap trials 08/07: Patient awake this a.m., following commands answering yes and no questions. The patient remain on CPAP yesterday for an extended period of time. Plan to begin trach collar trials this a.m.. Patient noted 1 g/dl drop in hemoglobin repeat hemoglobin pending. 08/08: Tmax 99.6. Hemoglobin stabilized. The patient was initiated on T piece trials yesterday morning and sustained T piece trials for greater than 12 hours yesterday. Patient placed back on PRN antianxiety meds Xanax, states she is anxious. T piece trials reinitiated this a.m. Of patient noted to have elevated glucose levels persistent. Levemir 5 units subcutaneous twice a day hemoglobin A1c pending. Creatinine noted to be worsening nephrology is following. Tolerating tube feeds. 08/09: Patient tolerated T piece trials for approximately 14 hours, before returning to CPAP. The patient continues on CPAP 03/10.35. The patient is notably lethargic this a.m., receiving Dilaudid 1 dose last evening, will continue to monitor. Frequency narcotic has been decreased. Creatinine continues to worsen, discussed with nephrology Dr. Elder patient is not a candidate for hemodialysis. Palliative care reconsulted for evaluation and defining goals of care. 08/10: Afebrile .Patient continues on CPAP, responsive. Creatinine continues to worsen, it is felt that the patient will not do well on hemodialysis given her multiple comorbidities. Discussion with palliative care team has been made patient DNR status today following yarsani. 08/11: No acute events overnight. Creatinine continues to rise. is considering possibly Hospice, in the near future. Groin area erythematous and nystatin powder added to medication regimen. Eid maintained to prevent further skin breakdown and measure adequate urinary output. 08/12: Afebrile. No improvement in renal function. Nodding yes and no to questions, continues on CPAP. 08/13: No change in status, noted lethargy. Patient continues on CPAP responsive to questions nodding head. Hemodynamically stable. Palliative care following regarding defining goals of care. 08/14: Patient continues on CPAP. Extensive discussion with Mr. Henson today, he has requested a second opinion regarding possible hemodialysis. Dr. Garcia has been consulted, awaiting any new recommendations. Creatinine continues to rise. Objective Vital Signs Date Time Temp Pulse Resp B/P (MAP) Pulse Ox O2 Delivery O2 Flow Rate FiO2 08/14/17 11:54 100 35 08/14/17 10:00 80 22 149/67 (94) 08/14/17 08:00 97.6 08/14/17 04:33 Nasal Cannula 08/10/17 11:50 8.00 Intake and Output 08/14/17 08/14/17 08/15/17 08:00 16:00 00:00 Intake Total 696 ml Output Total 300 ml Balance 396 ml Result Diagram: 08/13/17 0431 08/14/17 0616 Imaging Last Impressions Abdomen X-Ray 08/04/17 0000 Signed Impressions: Service Date/Time: Friday, August 04, 2017 22:47 - CONCLUSION: Benign-appearing abdomen. Dobbhoff feeding tube tip in the mid stomach. Charlie Norris MD Chest X-Ray 07/30/17 0000 Signed Impressions: Service Date/Time: Sunday, July 30, 2017 02:49 - CONCLUSION: Probable mild CHF. K. Jhonny Ziegler MD Abdomen/Pelvis CT 07/24/17 0000 Signed Impressions: Service Date/Time: Monday, July 24, 2017 14:57 - CONCLUSION: Pleural effusion and atelectasis right greater than left. Bowel gas pattern is unremarkable. No evidence of an abscess. Some induration anterior abdominal wall with some possible early fluid collection inferiorly within the lower pannus. Jame Preciado MD Head CT [id number] Signed Impressions: Service Date/Time: Tuesday, July 11, 2017 21:23 - CONCLUSION: No acute intracranial abnormality Jaden Clark MD Last Impressions Abdomen X-Ray 07/25/17 0000 Signed Impressions: Service Date/Time: Tuesday, July 25, 2017 17:34 - CONCLUSION: Dobbhoff catheter tip in the distal stomach. Jasen Delvalle MD Abdomen/Pelvis CT 07/24/17 0000 Signed Impressions: Service Date/Time: Monday, July 24, 2017 14:57 - CONCLUSION: Pleural effusion and atelectasis right greater than left. Bowel gas pattern is unremarkable. No evidence of an abscess. Some induration anterior abdominal wall with some possible early fluid collection inferiorly within the lower pannus. Jame Preciado MD Chest X-Ray 07/21/17 0600 Signed Impressions: Service Date/Time: Friday, July 21, 2017 03:13 - CONCLUSION: Nasogastric tube now in place with the tip below the [id number] of the radiograph. No significant interval change in bilateral pulmonary opacity. Differential diagnosis includes pulmonary edema and infection. Angelito Lovett MD Head CT [id number] Signed Impressions: Service Date/Time: Tuesday, July 11, 2017 21:23 - CONCLUSION: No acute intracranial abnormality Jaden Clark MD Objective Remarks GENERAL: Morbidly obese elderly female s/p trach, lethargic , but is easily arousable SKIN: Warm and dry. HEAD: Normocephalic. EYES: No scleral icterus. No injection or drainage. NECK: trachea midline. trach in place CARDIOVASCULAR: Regular rate and rhythm. RESPIRATORY: on mechanical ventilation via tracheostomy, air entry decreased bilaterally at bases, scattered rhonchi. GASTROINTESTINAL: Abdomen soft, non-tender, nondistended. left non-healing ulcer area from prior PEG site. Dressing clean dry and intact on abdomen. MUSCULOSKELETAL: No cyanosis, or peripheral edema 2+. Neuro: Lethargic , following commands in upper extremities, on mechanical ventilation via tracheostomy A/P Assessment and Plan Assessment: 77yF with morbid obesity and recurrent healthcare associated pneumonia and hypoxic respiratory failure. s/p trach 07/25. contra-indicated for PEG given recent peg site induration. will use DHT for long-term enteral nutrition. no placement plan at this time. Worsening renal failure , due to her complex medical condition , she will not do well on hemodialysis. Plan Neuro: metabolic encephalopathy Seizure disorder Neuropathy Anxiety disorder Off sedation. Monitor neuro status. On Keppra 500mg Q12 oxycodone 5mg po q4h prn for pain Xanax 0.25 every 6 hours when necessary, patient previously on Xanax 0.5 every 6 hours, continue to monitor. Pulm: Acute hypoxic and hypercarbic Respiratory failure Recurrent healthcare associated pneumonia Reintubated 07/19 Continue with vent support keep sat >92% Bronchodilators, ICU vent bundle. SBT daily as lisa s/p trach 07/[address] Srinivas Kennedy toilet, [facility]. Continue CPAP trials and attempt trach collar trials Trach collar trials initiated 08/07/17 CV: History of hypertension Monitor HR and BP keep MAP>65mmHg Amiodarone 200mg BID 2d echo 07/20: normal biventricular function, EF 60%, RVSP 47 mmHg. : Acute renal failure Free water deficit Monitor renal function, electrolytes replacement as needed. Nephrology consulted in view of rising BUN creatinine. Per nephrology patient will not do well on hemodialysis 2/2 her complex medical condition 08/14 second opinion from nephrology requested- Dr Garcia, follow-up recommendations GI: Morbid Obesity Acute protein calorie malnutrition- moderate On tube feeds- Nepro with goal rate 65ml/hr, On roly Colace, Lactulose for bowel regimen. On Reglan 5mg IV Q8 PRN ICU electrolyte protocol ID: Recurrent HCAP pneumonia- resolved. Urinary tract infection- resolved. off abx. monitor clinically.. Urine cx: 07/11: Kleb ESBL, Citrobacter. Repeat urine cx 07/18 - Kirsten Albicans sputum cx: Enterobacter ID following. Nystatin powder to groin areas Heme: Anemia secondary to chronic disease Monitor CBC, on Ferrous sulfate and Folic acid Hep PLT ab -negative 1 unit PRBCs ordered on 07/30 for hemoglobin 7.2, no evidence of melena or rectal bleeding. Endo: Hypothyroidism Hyperglycemia of Critical illness SSI medium scale for glycemic control Levothyroxine 25 mcgs/d hemoglobin A1c- 5.3 08/08 Levemir increased 10 units SQ BID GI prophylaxis- on Pepcid DVT prophylaxis- Heparin SQ Dispo: Awaiting placement. Patient was rejected by [facility] for not enough medicare days left. will look into vent-capable SNF facilities. does not meet inpatient criteria. 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 Patient renal function continues to worsen, patient will not do well on hemodialysis. 08/14 second opinion from Nephrology has been requested Palliative Care has been consulted and patient was made CODE STATUS DNR on08/11 Level 2 follow up Discussed with SLIDE FORMING MACHINE OPERATOR (Dasia) at bedside Physician Gianna Jeff MD Aug 14, 2017 15:13
[2017-08-14] MEDS: oxyCODONE HCL ORAL CONC 5 MG/0.25 ML SYRINGE PO PRN (18:16)
[2017-08-14] MEDS: ALPRAZolam 0.25 MG TAB PO PRN (18:16)
[2017-08-14] MEDS: FUROSEMIDE 40 MG/4 ML VIAL IV PUSH SCH (18:17)
[2017-08-14] MEDS: COLLAGENASE OINT 30 GM TUBE TOPICAL SCH (18:17)
[2017-08-14] MEDS: AMITRIPTYLINE HCL 10 MG TAB PO SCH (20:47)
[2017-08-15] VITALS (24 sets, daily range): BP systolic 95–137; BP diastolic 44–71; PULSE 51–75; RESP 13–16; TEMP 97.4–98; O2SAT 97–100
[2017-08-15] MEDS: CHLORHEXIDINE GLUCONATE 2 % 1 PACK (2 CLOTHS) TOP SCH ×2 (04:00→19:47)
--- NOTE | 2017-08-15 04:43 | RADRPT ---
EXAM DATE/TIME: 08/15/2017 03:11 [facility] COMPARISON: CHEST SINGLE AP, August 13, 2017, 3:11. INDICATIONS : Shortness of breath. MEDICAL HISTORY : Hypertension. Diabetes mellitus type II. SURGICAL HISTORY : Cholecystectomy. Appendectomy. ENCOUNTER: Subsequent ACUITY: 1 month PAIN SCORE: 0/10 LOCATION: Bilateral chest FINDINGS: The cardiac silhouette is enlarged in transverse diameter. There is patchy alveolar disease on the ri ght compatible with edema or pneumonia. Dobbhoff tube is in the fundus of the stomach. CONCLUSION: 1. Cardiomegaly. Diffuse right-sided edema versus pneumonia. There has been no significant change whe n compared to the prior exam. Gucci Waldrop MD on August 15, 2017 at 4:41 Board Certified Radiologist. This report was verified electronically.
[2017-08-15] MEDS: INSULIN NovoLIN REGULAR SUPPLEMENTAL SCALE SQ SCH ×5 (05:32→22:50)
[2017-08-15] MEDS: HEPARIN SODIUM - SQ 10,000 UNITS/ML VIAL SQ SCH ×3 (05:32→20:45)
[2017-08-15] MEDS: LEVOTHYROXINE SODIUM 25 MCG TAB PO SCH (05:32)
[2017-08-15 08:36] LABS: BICARBONATE 29.7 MEQ/L (21.0-32.0); CALCIUM 9.4 MG/DL (8.5-10.1); CREATININE 3.34 MG/DL (0.50-1.00); MAGNESIUM 3.8 MG/DL (1.5-2.5); PHOSPHORUS 4.6 MG/DL (2.5-4.9)
[2017-08-15] MEDS: SODIUM CHLORIDE 0.9% FLUSH 10 ML FLUSH IV FLUSH SCH ×2 (09:06→20:44)
[2017-08-15] MEDS: PADIMATE (CHAPSTICK) 4.5 GM TUBE TOPICAL PRN (09:06)
[2017-08-15] MEDS: SODIUM CHLORIDE 0.9% FLUSH 10 ML FLUSH IV FLUSH PRN (09:06)
[2017-08-15] MEDS: ARTIFICIAL TEARS OPTH SOLN 15 ML BTL EACH EYE SCH ×3 (09:06→18:34)
[2017-08-15] MEDS: AMIODARONE 200 MG TAB PO SCH ×2 (09:07→20:44)
[2017-08-15] MEDS: GABAPENTIN 300 MG CAP PO SCH (09:07)
[2017-08-15] MEDS: levETIRAcetam 500 MG/5 ML UDC NG SCH ×2 (09:07→20:44)
[2017-08-15] MEDS: busPIRone HCL 10 MG TAB PO SCH ×2 (09:07→20:44)
[2017-08-15] MEDS: FUROSEMIDE 40 MG/4 ML VIAL IV PUSH SCH ×2 (09:07→18:33)
[2017-08-15] MEDS: FAMOTIDINE 20 MG TAB NG SCH ×2 (09:07→20:44)
[2017-08-15] MEDS: FOLIC ACID 1 MG TAB PO SCH (09:07)
[2017-08-15] MEDS: LACTULOSE SYRUP 20 GM/30 ML CUP PO SCH ×3 (09:07→18:00)
[2017-08-15] MEDS: FERROUS SULFATE 300 MG /5ML UDC PO SCH ×2 (09:07→20:44)
[2017-08-15] MEDS: MULTIVITAMIN TAB PO SCH (09:08)
[2017-08-15] MEDS: ZINC SULFATE 220 MG CAP PO SCH (09:08)
[2017-08-15] MEDS: ASCORBIC ACID 500 MG TAB PO SCH ×2 (09:08→20:44)
[2017-08-15] MEDS: COLLAGENASE OINT 30 GM TUBE TOPICAL SCH (09:08)
[2017-08-15] MEDS: NYSTATIN 100,000 U/GM PWD 15 GM BTL TOPICAL SCH ×2 (09:08→20:45)
[2017-08-15] MEDS: INSULIN DETEMIR 100 UNITS/ML VIAL SQ SCH ×2 (09:08→20:45)
[2017-08-15] MEDS: DOCUSATE SODIUM 50 MG/SENNA 8.6 MG TAB PO SCH ×2 (09:08→20:44)
[2017-08-15] MEDS: HYDROmorphone HCL PF 2 MG/ML VIAL IV PUSH PRN ×2 (11:22→20:45)
[2017-08-15 12:08] LABS: HEMATOCRIT 23.8 % (35.0-46.0); HEMOGLOBIN 7.9 GM/DL (11.6-15.3); MEAN CELL VOLUME 96.8 FL (80.0-100.0); MEAN CORPUSCULAR HEMOGLOBIN 31.9 PG (27.0-34.0); MEAN CORPUSCULAR HGB CONC 32.9 % (32.0-36.0); MEAN PLATELET VOLUME 9.2 FL (7.0-11.0); PLATELET COUNT 145 TH/MM3 (150-450); RED BLOOD COUNT 2.46 MIL/MM3 (4.00-5.30); RED CELL DISTRIBUTION WIDTH 18.1 % (11.6-17.2); WHITE BLOOD COUNT 5.8 TH/MM3 (4.0-11.0)
--- NOTE | 2017-08-15 12:26 | HHI.HCPN ---
Reason for visit a. To assist with evaluation and management of symptoms including: Debility , dyspnea, encephalopathy, pain b. To assist medical decision maker(s) with: better understanding of current medical conditions; weighing benefits/burdens of medical treatment options; making medical treatment decisions. . Subjective/Interval History Follow up visit for symptom management and clarification of medical treatment goals. Mrs. Henson is a 76-year-old female with morbid obesity, recurrent HCAP and hypoxic respiratory failure status post tracheostomy on 08/01/2017, currently tolerating CPAP. Worsening kidney functioning. BUN: 124, creatinine 3.34, GFR 113. Patient's family requested a second opinion regarding possible hemodialysis. Dr. Garcia evaluated the patient on 08/14/2017, and he agrees with the primary toll line mechanic that this patient is not a candidate for hemodialysis. Dr. Garcia had a lengthy conversation with the patient's explaining that dialysis will not change this patient's outcome and would only serve only to prolong her suffering with little to no chance of ever getting out of bed. Patient is alert on examination, attempting to communicate her needs by mouthing words and trying to speak. It is unclear if the patient has judgment and/or insight related to her current medical conditions, therefore I would defer medical treatment decision making to the patient's spouse. Patient is crying and grimacing. When ask if she is painful she nods and begins to cry harder, but it is difficult to understand her. Patient indicating pain in her back and abdomen, possibly generalized pain. PRN acetaminophen, oxycodone and hydromorphone are available. Patient has required hydromorphone 0.25 mg IV 2 in the past 24 hours a oxycodone 5mg PO x 1. Unable to place PEG tube; patient tolerating artificial nutrition via Dobbhoff; Nepro at 65ml/hour. Total protein: 2.8, albumin 0.5. . Family/friend interactions 08/15/2017 @ 11:20: Spoke with patient's spouse via telephone this morning to review the patient's hospital course. Wade verbalizes understanding that another toll line mechanic was consulted for a second opinion, and he agrees that the patient is not a candidate for hemodialysis due to her overall poor performance status and multiple comorbid conditions. We briefly discussed transitioning to comfort focused care; patient's is tearfully appropriate. He prefers to meet with palliative care this afternoon to reevaluate medical treatment goals. I offered to call his daughter (Manuela) who provide her with an update as well, but he prefers that she be included in the palliative care meeting. Tentative palliative care meeting at 3 or 3:30 this afternoon 08/15/17. Palliative care met with patient's son this after noon at 3:30;patient's daughter participated via conference call. We again discussed patient's clinical condition, overall poor prognosis. Discussed options moving forward. Patient remains on CPAP via trach, and these requirements are unlikely to change. Patient can not go to the care center on CPAP. At this point, the family is not interested in compassionate withdrawal of artificial life support in the [facility]. . Advance Directives Advance Directive Specifics Documented care wishes: No known document wishes have been completed. . Objective Vital Signs Date Time Temp Pulse Resp B/P (MAP) Pulse Ox O2 Delivery O2 Flow Rate FiO2 08/15/17 08:41 100 35 08/15/17 06:00 70 08/15/17 04:25 100 35 08/15/17 04:00 64 08/15/17 04:00 35 08/15/17 04:00 97.9 64 16 137/64 (88) 100 08/15/17 02:00 66 08/15/17 01:48 100 35 08/15/17 00:00 98.0 66 16 116/55 (75) 100 08/15/17 00:00 35 08/15/17 00:00 66 08/14/17 22:00 62 08/14/17 20:47 18 08/14/17 20:35 98 35 08/14/17 20:00 98.1 69 18 130/59 (82) 97 08/14/17 20:00 35 08/14/17 20:00 65 08/14/17 18:45 16 08/14/17 18:00 69 08/14/17 16:46 98 35 08/14/17 16:00 69 08/14/17 16:00 35 08/14/17 16:00 98.1 69 19 122/57 (78) 100 08/14/17 15:00 68 08/14/17 15:00 68 119/58 (78) 100 08/14/17 14:00 71 08/14/17 14:00 71 17 125/60 (81) 100 08/14/17 13:00 68 136/60 (85) 100 08/14/17 13:00 68 08/14/17 12:00 68 19 132/60 (84) 99 08/14/17 12:00 68 08/14/17 12:00 35 Intake & Output 08/15/17 08/15/17 07:00 19:00 Intake Total 550 ml Output Total 350 ml Balance 200 ml Tube Feeding 450 ml Other 100 ml Output Urine Total 350 ml # Bowel Movements 1 . Physical Exam CONSTITUTIONAL/GENERAL: This is a morbidly obese, female patient status post tracheostomy on CPAP TUBES/LINES/DRAINS: Tracheostomy, Dobbhoff, Female external catheter, PIV SKIN: Generalized pallor. Ecchymosis on bilateral upper extremities. Wounds on upper extremities bilaterally HEAD: Atraumatic. Normocephalic. EYES: No scleral icterus. No injection or drainage. ENT: Nose without bleeding or purulent drainage. NECK: Trachea midline. Tracheostomy to CPAP CARDIOVASCULAR: Regular rate and rhythm without murmurs, gallops, or rubs. Upper extremities edematous bilaterally RESPIRATORY/CHEST: Patient is unable to lie flat status post tracheostomy on mechanical ventilation. Breath sounds diminished throughout GASTROINTESTINAL: Protuberant abdomen with non-healing ulcer area from prior PEG site. GENITOURINARY: Without palpable bladder distension. MUSCULOSKELETAL: Extremities without clubbing or cyanosis. No obvious deformities. 2+ peripheral edema. NEUROLOGICAL: Patient is alert on examination, attempting to communicate her needs by mouthing words and trying to speak. PSYCHIATRIC: Unable to assess due to patient's clinical condition . Diagnostic Tests Laboratory Laboratory Tests Test 08/13/17 04:31 08/14/17 06:16 08/15/17 06:21 08/15/17 06:26 White Blood Count 6.0 TH/MM3 (4.0-11.0) Red Blood Count 2.33 MIL/MM3 (4.00-5.30) Hemoglobin 7.4 GM/DL (11.6-15.3) Hematocrit 22.7 % (35.0-46.0) Mean Corpuscular Volume 97.5 FL (80.0-100.0) Mean Corpuscular Hemoglobin 31.6 PG (27.0-34.0) Mean Corpuscular Hemoglobin Concent 32.4 % (32.0-36.0) Red Cell Distribution Width 18.4 % (11.6-17.2) Platelet Count 171 TH/MM3 (150-450) Mean Platelet Volume 9.6 FL (7.0-11.0) Blood Urea Nitrogen 109 MG/DL (7-18) 117 MG/DL (7-18) 124 MG/DL (7-18) Creatinine 2.95 MG/DL (0.50-1.00) 3.17 MG/DL (0.50-1.00) 3.34 MG/DL (0.50-1.00) Random Glucose 212 MG/DL (74-106) 203 MG/DL (74-106) 137 MG/DL (74-106) Calcium Level 9.3 MG/DL (8.5-10.1) 9.8 MG/DL (8.5-10.1) 9.4 MG/DL (8.5-10.1) Sodium Level 139 MEQ/L (136-145) 138 MEQ/L (136-145) 138 MEQ/L (136-145) Potassium Level 4.5 MEQ/L (3.5-5.1) 4.7 MEQ/L (3.5-5.1) 4.9 MEQ/L (3.5-5.1) Chloride Level 102 MEQ/L (98-107) 100 MEQ/L (98-107) 99 MEQ/L (98-107) Carbon Dioxide Level 29.7 MEQ/L (21.0-32.0) 29.2 MEQ/L (21.0-32.0) 29.7 MEQ/L (21.0-32.0) Anion Gap 7 MEQ/L (5-15) 9 MEQ/L (5-15) 9 MEQ/L (5-15) Estimat Glomerular Filtration Rate 16 ML/MIN (>89) 14 ML/MIN (>89) 13 ML/MIN (>89) Phosphorus Level 4.6 MG/DL (2.5-4.9) Magnesium Level 3.8 MG/DL (1.5-2.5) Result Diagram: 08/13/17 0431 08/15/17 06 Imaging Last 72 hours Impressions Chest X-Ray 08/15/17 0600 Signed Impressions: Service Date/Time: Tuesday, August 15, 2017 03:11 - CONCLUSION: 1. Cardiomegaly. Diffuse right-sided edema versus pneumonia. There has been no significant change when compared to the prior exam. Gucci Waldrop MD Chest X-Ray 08/13/17 0600 Signed Impressions: Service Date/Time: Sunday, August 13, 2017 03:11 - CONCLUSION: 1. Patchy alveolar disease characteristic of edema or pneumonia. There has been no significant change when compared to the prior exam. Gucci Waldrop MD . Procedures 07/11/2017: Intubation 07/11/2017: OGT placement 07/18/2017: Extubation 07/19/2017: Reintubation 07/25/2017: Tracheostomy . Assessment and Plan Disease Oriented Problem List: (1) Metabolic encephalopathy (2) Seizure disorder (3) Neuropathy (4) Acute respiratory failure with hypoxia and hypercarbia (5) HCAP (healthcare-associated pneumonia) (6) Hypertension (7) Acute kidney insufficiency (8) Protein calorie malnutrition (9) UTI (urinary tract infection) (10) Hypothyroidism (11) Respiratory distress (12) Pneumonia Symptom Scale: (1) Debility 0-10 Scale: Unable to quantify (2) Dyspnea 0-10 Scale: Unable to quantify (3) Encephalopathy 0-10 Scale: Unable to quantify (4) Pain 0-10 Scale: Unable to quantify Comment: Patient reporting intermittent abdominal and back pain, both rated 8 out of 10. Back pain is described as a constant ache that does not radiate. PRN medications are available, being sparingly use. Pertinent Non-Medical Issues Psychosocial: Patient is originally from [place]. She moved to [place] where she met her . Patient has been 2 times. She had 2 children with her first . Her daughter (Manuela) and son (Landon) lives in [place]. Patient has been to her current for approximately 37 years. She worked with Medicare processing claims. Spiritual: Non-practicing Sabianist per spouse Legal: Per [place] statutes, in the absence of written advanced directives healthcare proxy decision-making falls to the patient's . Ethical issues impacting care: No known ethical issues impacting care at this time. . Important Contacts Reji Henson, : [phone] Manuela Kelly: [phone] . Prognosis Patient is a morbidly obese female with recurrent healthcare associated pneumonia, hypoxic respiratory failure and non-healing wounds status post tracheostomy placement. She has had multiple hospitalizations with subsequent LTAC/SNF placement since Dec, 2016. Overall prognosis is very poor; patient will likely not survive this medical illness. . Code Status: No Code Plan * No CODE * Decision-making: Patient is currently unable to participate in establishment of medical treatment goals given her clinical condition. It is unknown if she will regain capacity. Per [place] statutes, in the absence of written advanced * Discussed patient's case with bedside nurse (Jasmina), charge nurse (Michelle ) and Dr. Newman * Goals aggressive up to the point of cardiopulmonary resuscitation. * Spoke with patient's spouse via telephone this morning to review the patient' s hospital course. Wade verbalizes understanding that another toll line mechanic was consulted for a second opinion, and he agrees that the patient is not a candidate for hemodialysis due to her overall poor performance status and multiple comorbid conditions. We briefly discussed transitioning to comfort focused care; patient's is tearfully appropriate. Palliative care with patient's spouse; patient's daughter participated via conference call. Ongoing CPAP requirements are unlikely to change per medical team; patient is not a candidate for hospice care center placement while on CPAP. At this time the patient does not want compassionate withdrawal of artificial life support will in the [facility]. Palliative care will provide ongoing support and medical updates. * Symptom management-pain: Patient is crying and grimacing. When ask if she is painful she nods and begins to cry harder, but it is difficult to understand her. Patient indicating pain in her back and abdomen, possibly generalized pain. PRN acetaminophen, oxycodone and hydromorphone are available. Patient has required hydromorphone 0.25 mg IV 2 in the past 24 hours a oxycodone 5mg PO x 1. Palliative care will monitor PRN requirements and make recommendations as indicated. * Symptom management-dyspnea: Patient with recurrent HCAP and hypoxic respiratory failure. Status post tracheostomy on 07/25/2017, currently tolerating CPAP Follow-up chest x-ray today on showing cardiomegaly; diffuse right-sided edema versus pneumonia. There has been no significant change when compared to prior exam. 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 Prior to Dec, 2016 the patient was able to ambulate short distances with a walker. Her states she was otherwise independent for all ADLs. Patient had ongoing hospitalizations and LTAC/SNF recent symptoms 2016. Patient remains dependent for all mobility, ongoing passive ROM exercises. Patient unable to participate secondary to lethargy. It is unlikely the patient will tolerate rehabilitation. * Symptom management-encephalopathy: CT head on 07/11/17 no acute intracranial abnormalities. Patient is alert on examination, attempting to communicate her needs by mouthing words and trying to speak. It is unclear if the patient has judgment and/or insight related to her current medical conditions, therefore I would defer medical treatment decision making to the patient's spouse. * Palliative care will continue to follow this patient throughout her hospitalization to establish trust, assist with symptom management and clarification of medical treatment goals. . Attestation To help prompt me to consider important information that might be impacting today's encounter and assessment, information from prior notes written by myself or my colleagues may have been "brought forward" into today's note. My signature on this note, however, is an attestation that I personally performed the exam, history, and/or decision-making noted today, and, unless otherwise indicated, the interactions with patient, family, and staff as well as the review of records all occurred today. I also attest that the listed assessment and stated plan reflect my best clinical judgment today based on the combination of historical information, prior notes, and today's exam/ interactions. When time spent is documented, it refers only to time spent today by the signer, or if indicated, combined time spent today by collaborating physician/nurse practitioner. . Zo Newell Aug 15, 2017 12:26
--- NOTE | 2017-08-15 18:21 | RADRPT ---
EXAM DATE/TIME: 08/15/2017 17:52 [facility] COMPARISON: No previous studies available for comparison. INDICATIONS : Evaluate for NG tube placement. MEDICAL HISTORY : Hypertension. Diabetes mellitus type II. SURGICAL HISTORY : Cholecystectomy. Appendectomy. ENCOUNTER: Subsequent ACUITY: 1 day PAIN SCORE: Non-responsive. LOCATION: chest FINDINGS: Examination of the abdomen demonstrates a normal bowel gas pattern. A feeding tube is beginning to co il in the stomach. No free air is identified. No organomegaly is evident. Osseous structures are i ntact. CONCLUSION: No evidence of obstruction. Feeding tube coiled along the greater curvature of the stomach Jame Preciado MD on August 15, 2017 at 18:18 Board Certified Radiologist. This report was verified electronically.
--- NOTE | 2017-08-15 19:22 | HHI.NPPN ---
Subjective General Problems: Anemia, Edema Renal Failure: Acute Review of Systems General General Remarks generalized pain Objective Data Data 08/15/17 08/16/17 19:00 07:00 Intake Total 627 ml Output Total 300 ml Balance 327 ml Tube Feeding 627 ml Output Urine Total 300 ml Vital Signs Date Time Temp Pulse Resp B/P (MAP) Pulse Ox O2 Delivery O2 Flow Rate FiO2 08/15/17 18:00 61 117/56 (76) 100 08/15/17 18:00 61 08/15/17 17:00 59 106/57 (73) 99 08/15/17 16:20 99 35 08/15/17 16:00 97.4 51 99/49 (66) 98 08/15/17 16:00 51 08/15/17 16:00 35 08/15/17 15:00 53 103/51 (68) 98 08/15/17 14:00 55 105/51 (69) 100 08/15/17 14:00 55 08/15/17 13:00 61 109/48 (68) 100 08/15/17 12:14 100 35 08/15/17 12:00 59 08/15/17 12:00 35 08/15/17 12:00 97.4 59 105/44 (64) 97 08/15/17 11:00 75 97/71 (80) 100 08/15/17 10:00 62 08/15/17 10:00 62 100/52 (68) 100 08/15/17 09:00 61 98/53 (68) 100 08/15/17 08:41 100 35 08/15/17 08:00 54 08/15/17 08:00 35 08/15/17 08:00 97.6 54 95/46 (62) 100 08/15/17 07:00 60 103/50 (67) 100 08/15/17 06:00 70 08/15/17 04:25 100 35 08/15/17 04:00 64 08/15/17 04:00 35 08/15/17 04:00 97.9 64 16 137/64 (88) 100 08/15/17 02:00 66 08/15/17 01:48 100 35 08/15/17 00:00 98.0 66 16 116/55 (75) 100 08/15/17 00:00 35 08/15/17 00:00 66 08/14/17 22:00 62 08/14/17 20:47 18 08/14/17 20:35 98 35 08/14/17 20:00 98.1 69 18 130/59 (82) 97 08/14/17 20:00 35 08/14/17 20:00 65 -: 08/15/17 1134 08/15/17 0626 Tubes & Lines: Eid Tubes & Lines Comment doivelisse mendez Physical Exam General Appearance: Obese, Malnourished Eyes Eye Exam: Pupils Equal Throat Throat Exam: Oral Mucosa [place] & Moist Neck Neck Exam: Neck Supple Pulmonary Resp Exam: Diminished Breath Sounds Cardiology CV Exam: Regular, Normal Sinus Rhythm Gastrointestinal/Abdomen GI Exam: Soft, Non-Tender, Bowel Sounds Present Musculoskeletal MS Exam: Unable to Ambulate Integumentary Skin Exam: Warm, Dry Extremeties Extremities Exam: Pedal Pulses Palpable, Moderate Edema, Pitting Edema, Dependent Edema Neurologic Neuro Exam: Moving All Extremities, Obtunded VTE Prophylaxis Device: SCDs Assessment/Plan Discussed Condition With: Spouse Assessment Summary: RADHA/Acute Renal Failure, Fluid/Volume Overload, Hypertension Problem List: (1) Acute kidney insufficiency ICD Codes: N28.9 - Disorder of kidney and ureter, unspecified Plan: RADHA with prolonged hospitalization and multiple comorbidities She does have component of congestive heart failure, pulmonary artery pressures are increased also she has peripheral swelling mainly and is suffering from right sided heart failure She has peripheral edema Skin breakdown I discussed dialysis with patient's non olguric Azotemia worsening Family not ready for hospice try Diamox and Lasix 80 mg IV as UOP not great consider dialysis (2) Hyperkalemia ICD Codes: E87.5 - Hyperkalemia Plan: Improved. Continue to monitor. (3) Acute respiratory failure with hypoxia and hypercarbia ICD Codes: J96.01 - Acute respiratory failure with hypoxia; J96.02 - Acute respiratory failure with hypercapnia Plan: On CPAP, trach. (4) Hypertension ICD Codes: I10 - Essential (primary) hypertension Plan: Hypotensive overnight; hold antihypertensives if SBP < 100mmHg (5) Encephalopathy ICD Codes: G93.40 - Encephalopathy, unspecified Plan: Prognosis appears to be poor. Plan patient was seen and examined. Because of multiple comorbidities, I had suggested to the that she will not do well on dialysis, and had recommended palliative care, hospice. "she is not a candidate for dialysis" is not accurate description of my opinion and recommendation to the patient . If the insists on proceeding with dialysis, I would not refuse to offer that service. I have read the notes. Palliative care had brought up the topic of hospice. The now wants a second opinion as he thinks that "her kidneys were never treated". I will see her only if necessary, I will sign off at this time. Gail Garcia MD Aug 15, 2017 19:22
[2017-08-15] MEDS ORDERED: FUROSEMIDE 100 MG/10 ML VIAL IV PUSH ONE (20:00)
[2017-08-15] MEDS: AMITRIPTYLINE HCL 10 MG TAB PO SCH (20:44)
[2017-08-16] VITALS (23 sets, daily range): BP systolic 94–166; BP diastolic 43–72; PULSE 58–82; RESP 15; TEMP 97.4–99; O2SAT 92–100
[2017-08-16] MEDS: HYDROmorphone HCL PF 2 MG/ML VIAL IV PUSH PRN ×3 (03:59→15:05)
[2017-08-16] MEDS: HEPARIN SODIUM - SQ 10,000 UNITS/ML VIAL SQ SCH ×3 (04:42→20:51)
[2017-08-16] MEDS: INSULIN NovoLIN REGULAR SUPPLEMENTAL SCALE SQ SCH ×4 (05:04→23:12)
[2017-08-16] MEDS: LEVOTHYROXINE SODIUM 25 MCG TAB PO SCH (06:00)
[2017-08-16 07:50] LABS: INTERNATIONAL NORMALIZED RATIO 0.9 RATIO; PROTHROMBIN TIME - PATIENT 9.6 SEC (9.8-11.6)
[2017-08-16 07:52] LABS: AUTOMATED NEUTROPHIL # 4.2 TH/MM3 (1.8-7.7); BASOPHIL % 0.5 % (0.0-2.0); EOSINOPHIL # 0.2 TH/MM3 (0-0.4); EOSINOPHIL % 3.1 % (0.0-4.0); LYMPH % 9.2 % (9.0-44.0); LYMPHOCYTE # 0.5 TH/MM3 (1.0-4.8); MEAN CELL VOLUME 97.8 FL (80.0-100.0); MEAN CORPUSCULAR HEMOGLOBIN 32.4 PG (27.0-34.0); MEAN CORPUSCULAR HGB CONC 33.1 % (32.0-36.0); MEAN PLATELET VOLUME 10.1 FL (7.0-11.0); MONO % 7.7 % (0.0-8.0); MONOCYTE # 0.4 TH/MM3 (0-0.9); NEUT % 79.5 % (16.0-70.0); PLATELET COUNT 129 TH/MM3 (150-450); RED BLOOD COUNT 2.14 MIL/MM3 (4.00-5.30); RED CELL DISTRIBUTION WIDTH 18.3 % (11.6-17.2); WHITE BLOOD COUNT 5.3 TH/MM3 (4.0-11.0)
[2017-08-16 08:03] LABS: BICARBONATE 28.7 MEQ/L (21.0-32.0); CALCIUM 9.3 MG/DL (8.5-10.1); CREATININE 3.56 MG/DL (0.50-1.00); PHOSPHORUS 5.4 MG/DL (2.5-4.9)
[2017-08-16 08:21] LABS: HEMATOCRIT 20.9 % (35.0-46.0); HEMOGLOBIN 6.9 GM/DL (11.6-15.3)
[2017-08-16] MEDS: SODIUM CHLORIDE 0.9% FLUSH 10 ML FLUSH IV FLUSH SCH ×2 (08:47→20:52)
[2017-08-16] MEDS: SODIUM CHLORIDE 0.9% FLUSH 10 ML FLUSH IV FLUSH PRN (08:47)
[2017-08-16] MEDS: ARTIFICIAL TEARS OPTH SOLN 15 ML BTL EACH EYE SCH ×3 (08:47→18:02)
[2017-08-16] MEDS: FAMOTIDINE 20 MG TAB NG SCH ×2 (08:48→20:51)
[2017-08-16] MEDS: AMIODARONE 200 MG TAB PO SCH ×2 (08:48→20:51)
[2017-08-16] MEDS: FUROSEMIDE 40 MG/4 ML VIAL IV PUSH SCH (08:48)
[2017-08-16] MEDS: busPIRone HCL 10 MG TAB PO SCH ×2 (08:48→20:51)
[2017-08-16] MEDS: levETIRAcetam 500 MG/5 ML UDC NG SCH ×2 (08:48→20:51)
[2017-08-16] MEDS: INSULIN DETEMIR 100 UNITS/ML VIAL SQ SCH ×2 (08:49→20:51)
[2017-08-16] MEDS: LACTULOSE SYRUP 20 GM/30 ML CUP PO SCH ×3 (08:49→18:02)
[2017-08-16] MEDS: GABAPENTIN 300 MG CAP PO SCH (08:49)
[2017-08-16] MEDS: FOLIC ACID 1 MG TAB PO SCH (08:49)
[2017-08-16] MEDS: DOCUSATE SODIUM 50 MG/SENNA 8.6 MG TAB PO SCH ×2 (08:49→20:51)
[2017-08-16] MEDS: FERROUS SULFATE 300 MG /5ML UDC PO SCH ×2 (08:49→20:51)
[2017-08-16] MEDS: MULTIVITAMIN TAB PO SCH (08:49)
[2017-08-16] MEDS: ASCORBIC ACID 500 MG TAB PO SCH ×2 (08:49→20:51)
[2017-08-16] MEDS: COLLAGENASE OINT 30 GM TUBE TOPICAL SCH (08:49)
[2017-08-16] MEDS: ZINC SULFATE 220 MG CAP PO SCH (08:49)
[2017-08-16] MEDS: NYSTATIN 100,000 U/GM PWD 15 GM BTL TOPICAL SCH ×2 (08:49→20:52)
[2017-08-16 10:21] LABS: HEMATOCRIT 22.7 % (35.0-46.0); HEMOGLOBIN 7.4 GM/DL (11.6-15.3)
--- NOTE | 2017-08-16 15:21 | HHI.NPPN ---
Subjective General Problems: Anemia, Edema Renal Failure: Acute Review of Systems General General Remarks generalized pain Objective Data Data Vital Signs Date Time Temp Pulse Resp B/P (MAP) Pulse Ox O2 Delivery O2 Flow Rate FiO2 08/16/17 15:10 92 35 08/16/17 14:00 74 08/16/17 13:00 75 125/60 (81) 95 08/16/17 12:00 71 08/16/17 12:00 97.6 71 117/54 (75) 99 08/16/17 12:00 35 08/16/17 11:28 100 35 08/16/17 11:00 66 113/56 (75) 98 08/16/17 10:00 74 08/16/17 10:00 74 121/53 (75) 99 08/16/17 09:00 67 106/51 (69) 98 08/16/17 08:36 100 35 08/16/17 08:00 97.4 58 97/46 (63) 97 08/16/17 08:00 35 08/16/17 08:00 59 08/16/17 07:00 65 107/54 (71) 100 08/16/17 06:00 66 08/16/17 04:00 98.0 62 15 111/63 (79) 100 08/16/17 04:00 62 08/16/17 04:00 35 08/16/17 03:27 100 35 08/16/17 02:00 63 08/16/17 01:58 99 35 08/16/17 00:00 98.2 64 15 145/62 (89) 98 08/16/17 00:00 35 08/16/17 00:00 64 08/15/17 22:00 54 08/15/17 22:00 98 35 08/15/17 20:00 60 08/15/17 20:00 35 08/15/17 20:00 97.9 60 13 105/53 (70) 100 08/15/17 19:46 100 35 08/15/17 18:00 61 117/56 (76) 100 08/15/17 18:00 61 08/15/17 17:00 59 106/57 (73) 99 08/15/17 16:20 99 35 08/15/17 16:00 97.4 51 99/49 (66) 98 08/15/17 16:00 51 08/15/17 16:00 35 -: 08/16/17 1012 08/16/17 0537 Tubes & Lines: Eid Tubes & Lines Comment ivelisse tijerina Physical Exam General Appearance: Obese, Malnourished Eyes Eye Exam: Pupils Equal Throat Throat Exam: Oral Mucosa [place] & Moist Neck Neck Exam: Neck Supple Pulmonary Resp Exam: Diminished Breath Sounds Cardiology CV Exam: Regular, Normal Sinus Rhythm Gastrointestinal/Abdomen GI Exam: Soft, Non-Tender, Bowel Sounds Present Musculoskeletal MS Exam: Unable to Ambulate Integumentary Skin Exam: Warm, Dry Extremeties Extremities Exam: Pedal Pulses Palpable, Moderate Edema, Pitting Edema, Dependent Edema Neurologic Neuro Exam: Moving All Extremities, Obtunded VTE Prophylaxis Device: SCDs Assessment/Plan Discussed Condition With: Spouse Assessment Summary: RADHA/Acute Renal Failure, Fluid/Volume Overload, Hypertension Problem List: (1) Acute kidney insufficiency ICD Codes: N28.9 - Disorder of kidney and ureter, unspecified Plan: RADHA with prolonged hospitalization and multiple comorbidities She does have component of congestive heart failure, pulmonary artery pressures are increased also she has peripheral swelling mainly and is suffering from right sided heart failure She has peripheral edema Skin breakdown I discussed dialysis with patient's non olguric Azotemia worsening Family not ready for hospice trying Diamox and Lasix 80 mg IV as UOP 650 ml refused dialysis (2) Hyperkalemia ICD Codes: E87.5 - Hyperkalemia Plan: Improved. Continue to monitor. (3) Acute respiratory failure with hypoxia and hypercarbia ICD Codes: J96.01 - Acute respiratory failure with hypoxia; J96.02 - Acute respiratory failure with hypercapnia Plan: On CPAP, trach. (4) Hypertension ICD Codes: I10 - Essential (primary) hypertension Plan: Hypotensive overnight; hold antihypertensives if SBP < 100mmHg (5) Encephalopathy ICD Codes: G93.40 - Encephalopathy, unspecified Plan: Prognosis appears to be poor. Plan patient was seen and examined. Because of multiple comorbidities, I had suggested to the that she will not do well on dialysis, and had recommended palliative care, hospice. "she is not a candidate for dialysis" is not accurate description of my opinion and recommendation to the patient . If the insists on proceeding with dialysis, I would not refuse to offer that service. I have read the notes. Palliative care had brought up the topic of hospice. The now wants a second opinion as he thinks that "her kidneys were never treated". I will see her only if necessary, I will sign off at this time. Gail Garcia MD Aug 16, 2017 15:21
--- NOTE | 2017-08-16 15:44 | HHI.CCPN ---
Subjective Remarks/Hospital Course 07/11: 77-year-old morbidly obese female patient sent in from snf, due to increased lethargy for the last 2 days, hypoglycemia early in the day with sugars of 44, given glucagon, chest x-ray showing a pneumonia according to facility staff, EMS noted the patient was fairly disoriented, GCS 6, and started bag valve masking her because of respiratory distress and hypoxia with sats in the 87% range despite oxygenation. Patient was brought in bag-valve- mask in progress and was immediately intubated in the emergency department by ED attending. 07/12: Sedated, orally intubated on mechanical ventilation. 07/13 Patient is sedated with Fentanyl and intubated. Afebrile. 07/14 No events overnight, Sedated with Fentanyl and Versed. Afebrile. Failed CPAP trials yesterday. 07/15 No events overnight. Sedated and intubated. ABG on CPAP yesterday showed resp acidosis with PH 7.22 and CO2: 58 07/16 Patient remains sedated and intubated 07/17. No events overnight. Remains sedated and intubated 07/18 Patient remains intubated off sedation. Afebrile. 07/19 Patient s/p extubation yesterday on BIPAP overnight. Awake. ABG last night showed resp acidosis with PH: 7.24, pCO2: 66 07/20 Patient was reintubated yesterday for resp failure. Sedated and intubated. Afebrile. 07/21: new HCAP with GNRs in sputum. persistent respiratory failure. likely will require long-term ventilation and slow wean. will consult general surgery for re-do trach and gastric access. 07/22: no changes. no improvements. gen surgery planning PEG/Trach next week. 07/23: sputum growing enterobacter; now on Cefepime per ID. neuro exam still stable, but fails weaning trials quickly. 07/24: no changes. still failing cpap and weaning trials. CT abd/pelvis done at gen surg request without overt abscess at prior peg site. 07/25: s/p trach today. doing well. still failing cpap. approved for LTAC. surgical contra-indication to PEG placement with induration at old PEG site: will use DHT for enteral access and tube feeds. ID giving final recs for duration of therapy. stable for discharge to LTAC when bed available. 07/26 No events overnight. Patient was rejected by [facility] this morning per case supervisor. Afebrile. 07/27 Patient is sedated with Diprivan and intubated. Afebrile. 07/28 No events overnight. Off sedation. On ventilator via trach. 07/29 No events overnight. Tolerated CPAP for most f day yesterday. Afebrile. 07/30: Remains on mechanical ventilation via tracheostomy. Drowsy/ encephalopathic 07/31: Remains encephalopathic, on mechanical ventilation via tracheostomy. Received 1 unit PRBCs yesterday. No melena or rectal bleeding noted. 08/01: Remains encephalopathic, on mechanical ventilation via tracheostomy. Daily C Pap trials ongoing. Neurologic status remains poor. 08/02: no improvements, no changes. does not meet inpatient criteria, but funding problems prevent appropriate placement. overall prognosis very poor. unlikely that she will survive this medical illness. 08/03: continues without significant changes or improvements. 08/04: Remains encephalopathic, on mechanical ventilation via tracheostomy. Potassium elevated. Ordered Kayexalate. 08/05: Remains encephalopathic, on mechanical ventilation via tracheostomy. Potassium levels coming down. 08/06: Remains encephalopathic on mechanical ventilation via tracheostomy. Tolerating tube feeds. Daily C Pap trials 08/07: Patient awake this a.m., following commands answering yes and no questions. The patient remain on CPAP yesterday for an extended period of time. Plan to begin trach collar trials this a.m.. Patient noted 1 g/dl drop in hemoglobin repeat hemoglobin pending. 08/08: Tmax 99.6. Hemoglobin stabilized. The patient was initiated on T piece trials yesterday morning and sustained T piece trials for greater than 12 hours yesterday. Patient placed back on PRN antianxiety meds Xanax, states she is anxious. T piece trials reinitiated this a.m. Of patient noted to have elevated glucose levels persistent. Levemir 5 units subcutaneous twice a day hemoglobin A1c pending. Creatinine noted to be worsening nephrology is following. Tolerating tube feeds. 08/09: Patient tolerated T piece trials for approximately 14 hours, before returning to CPAP. The patient continues on CPAP 03/10.35. The patient is notably lethargic this a.m., receiving Dilaudid 1 dose last evening, will continue to monitor. Frequency narcotic has been decreased. Creatinine continues to worsen, discussed with nephrology Dr. Elder patient is not a candidate for hemodialysis. Palliative care reconsulted for evaluation and defining goals of care. 08/10: Afebrile .Patient continues on CPAP, responsive. Creatinine continues to worsen, it is felt that the patient will not do well on hemodialysis given her multiple comorbidities. Discussion with palliative care team has been made patient DNR status today following [facility]. 08/11: No acute events overnight. Creatinine continues to rise. is considering possibly Hospice, in the near future. Groin area erythematous and nystatin powder added to medication regimen. Eid maintained to prevent further skin breakdown and measure adequate urinary output. 08/12: Afebrile. No improvement in renal function. Nodding yes and no to questions, continues on CPAP. 08/13: No change in status, noted lethargy. Patient continues on CPAP responsive to questions nodding head. Hemodynamically stable. Palliative care following regarding defining goals of care. 08/14: Patient continues on CPAP. Extensive discussion with Mr. Henson today, he has requested a second opinion regarding possible hemodialysis. Dr. Garcia has been consulted, awaiting any new recommendations. Creatinine continues to rise. 08/15: Delayed entry note-no change in status, she continues on CPAP unable to do T piece trials tidal volume/respiratory volumes very low. Patient continues to be lethargic. Dr. Garcia following. Hemodynamically stable. Objective Vital Signs Date Time Temp Pulse Resp B/P (MAP) Pulse Ox O2 Delivery O2 Flow Rate FiO2 08/16/17 15:10 92 35 08/16/17 14:00 74 08/16/17 13:00 125/60 (81) 08/16/17 12:00 97.6 08/16/17 04:00 15 08/14/17 04:33 Nasal Cannula Intake and Output 08/16/17 08/16/17 08/17/17 08:00 16:00 00:00 Intake Total 510 ml Output Total 350 ml Balance 160 ml Result Diagram: 08/16/17 1012 08/16/17 0537 Imaging Last Impressions Abdomen X-Ray 08/04/17 0000 Signed Impressions: Service Date/Time: Friday, August 04, 2017 22:47 - CONCLUSION: Benign-appearing abdomen. Dobbhoff feeding tube tip in the mid stomach. Charlie Norris MD Chest X-Ray 07/30/17 0000 Signed Impressions: Service Date/Time: Sunday, July 30, 2017 02:49 - CONCLUSION: Probable mild CHF. Aldair Ziegler MD Abdomen/Pelvis CT 07/24/17 0000 Signed Impressions: Service Date/Time: Monday, July 24, 2017 14:57 - CONCLUSION: Pleural effusion and atelectasis right greater than left. Bowel gas pattern is unremarkable. No evidence of an abscess. Some induration anterior abdominal wall with some possible early fluid collection inferiorly within the lower pannus. Jame Preciado MD Head CT [id number]/11/[id number] Signed Impressions: Service Date/Time: Tuesday, July 11, 2017 21:23 - CONCLUSION: No acute intracranial abnormality Jaden Clark MD Last Impressions Abdomen X-Ray 07/25/17 0000 Signed Impressions: Service Date/Time: Tuesday, July 25, 2017 17:34 - CONCLUSION: Dobbhoff catheter tip in the distal stomach. Jasen Delvalle MD Abdomen/Pelvis CT 07/24/17 0000 Signed Impressions: Service Date/Time: Monday, July 24, 2017 14:57 - CONCLUSION: Pleural effusion and atelectasis right greater than left. Bowel gas pattern is unremarkable. No evidence of an abscess. Some induration anterior abdominal wall with some possible early fluid collection inferiorly within the lower pannus. Jame Preciado MD Chest X-Ray 07/21/17 0600 Signed Impressions: Service Date/Time: Friday, July 21, 2017 03:13 - CONCLUSION: Nasogastric tube now in place with the tip below the [id number] of the radiograph. No significant interval change in bilateral pulmonary opacity. Differential diagnosis includes pulmonary edema and infection. Angelito Lovett MD Head CT [id number]/[id number] Signed Impressions: Service Date/Time: Tuesday, July 11, 2017 21:23 - CONCLUSION: No acute intracranial abnormality Jaden Clark MD Objective Remarks GENERAL: Morbidly obese elderly female s/p trach, lethargic , but is easily arousable SKIN: Warm and dry. HEAD: Normocephalic. EYES: No scleral icterus. No injection or drainage. NECK: trachea midline. trach in place CARDIOVASCULAR: Regular rate and rhythm. RESPIRATORY: on mechanical ventilation via tracheostomy, air entry decreased bilaterally at bases, scattered rhonchi. GASTROINTESTINAL: Abdomen soft, non-tender, nondistended. left non-healing ulcer area from prior PEG site. Dressing clean dry and intact on abdomen. MUSCULOSKELETAL: No cyanosis, or peripheral edema 2+. Neuro: Lethargic , following commands in upper extremities, on mechanical ventilation via tracheostomy A/P Assessment and Plan Assessment: 77yF with morbid obesity and recurrent healthcare associated pneumonia and hypoxic respiratory failure. s/p trach 07/25. contra-indicated for PEG given recent peg site induration. will use DHT for long-term enteral nutrition. no placement plan at this time. Worsening renal failure , due to her complex medical condition , she will not do well on hemodialysis. Plan Neuro: metabolic encephalopathy Seizure disorder Neuropathy Anxiety disorder Off sedation. Monitor neuro status. On Keppra 500mg Q12 oxycodone 5mg po q4h prn for pain Xanax 0.25 every 6 hours when necessary, patient previously on Xanax 0.5 every 6 hours, continue to monitor. Pulm: Acute hypoxic and hypercarbic Respiratory failure Recurrent healthcare associated pneumonia Reintubated 07/19 Continue with vent support keep sat >92% Bronchodilators, ICU vent bundle. SBT daily as lisa s/p trach 07/[address] Srinivas Barlowm toilet, [facility]. Continue CPAP trials and attempt trach collar trials Trach collar trials initiated 08/07/17, and able to continue performance of T piece trial secondary to low respiratory volumes CV: History of hypertension Monitor HR and BP keep MAP>65mmHg Amiodarone 200mg BID 2d echo 07/20: normal biventricular function, EF 60%, RVSP 47 mmHg. : Acute renal failure Free water deficit Monitor renal function, electrolytes replacement as needed. Nephrology consulted in view of rising BUN creatinine. Per nephrology patient will not do well on hemodialysis 2/2 her complex medical condition 08/14 second opinion from nephrology requested- Dr Garcia, follow-up recommendations GI: Morbid Obesity Acute protein calorie malnutrition- moderate On tube feeds- Nepro with goal rate 65ml/hr, On roly Colace, Lactulose for bowel regimen. On Reglan 5mg IV Q8 PRN ICU electrolyte protocol ID: Recurrent HCAP pneumonia- resolved. Urinary tract infection- resolved. off abx. monitor clinically.. Urine cx: 07/11: Kleb ESBL, Citrobacter. Repeat urine cx 07/18 - Kirsten Albicans sputum cx: Enterobacter ID following. Nystatin powder to groin areas Heme: Anemia secondary to chronic disease Monitor CBC, on Ferrous sulfate and Folic acid Hep PLT ab -negative 1 unit PRBCs ordered on 07/30 for hemoglobin 7.2, no evidence of melena or rectal bleeding. Endo: Hypothyroidism Hyperglycemia of Critical illness SSI medium scale for glycemic control Levothyroxine 25 mcgs/d hemoglobin A1c- 5.3 08/08 Levemir increased 10 units SQ BID GI prophylaxis- on Pepcid DVT prophylaxis- Heparin SQ Dispo: Awaiting placement. Patient was rejected by [facility] for not enough medicare days left. will look into vent-capable SNF facilities. does not meet inpatient criteria. consulted palliative care to assist with deciding goals of therapy as intermediate prognosis appears poor. Patient renal function continues to worsen, patient will not do well on hemodialysis. 08/14 second opinion from Nephrology has been requested Palliative Care has been consulted and patient was made CODE STATUS DNR on08/11 Level 2 follow up Discussed with LAND SURVEYOR ASSISTANT (Dasia) at bedside Physician Gianna Jeff MD Aug 16, 2017 15:44
--- NOTE | 2017-08-16 15:55 | HHI.CCPN ---
Subjective Remarks/Hospital Course 07/11: 77-year-old morbidly obese female patient sent in from alf, due to increased lethargy for the last 2 days, hypoglycemia early in the day with sugars of 44, given glucagon, chest x-ray showing a pneumonia according to facility staff, EMS noted the patient was fairly disoriented, GCS 6, and started bag valve masking her because of respiratory distress and hypoxia with sats in the 87% range despite oxygenation. Patient was brought in bag-valve- mask in progress and was immediately intubated in the emergency department by ED attending. 07/12: Sedated, orally intubated on mechanical ventilation. 07/13 Patient is sedated with Fentanyl and intubated. Afebrile. 07/14 No events overnight, Sedated with Fentanyl and Versed. Afebrile. Failed CPAP trials yesterday. 07/15 No events overnight. Sedated and intubated. ABG on CPAP yesterday showed resp acidosis with PH 7.22 and CO2: 58 07/16 Patient remains sedated and intubated 07/17. No events overnight. Remains sedated and intubated 07/18 Patient remains intubated off sedation. Afebrile. 07/19 Patient s/p extubation yesterday on BIPAP overnight. Awake. ABG last night showed resp acidosis with PH: 7.24, pCO2: 66 07/20 Patient was reintubated yesterday for resp failure. Sedated and intubated. Afebrile. 07/21: new HCAP with GNRs in sputum. persistent respiratory failure. likely will require long-term ventilation and slow wean. will consult general surgery for re-do trach and gastric access. 07/22: no changes. no improvements. gen surgery planning PEG/Trach next week. 07/23: sputum growing enterobacter; now on Cefepime per ID. neuro exam still stable, but fails weaning trials quickly. 07/24: no changes. still failing cpap and weaning trials. CT abd/pelvis done at gen surg request without overt abscess at prior peg site. 07/25: s/p trach today. doing well. still failing cpap. approved for LTAC. surgical contra-indication to PEG placement with induration at old PEG site: will use DHT for enteral access and tube feeds. ID giving final recs for duration of therapy. stable for discharge to LTAC when bed available. 07/26 No events overnight. 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 Afebrile. 07/27 Patient is sedated with Diprivan and intubated. Afebrile. 07/28 No events overnight. Off sedation. On ventilator via trach. 07/29 No events overnight. Tolerated CPAP for most f day yesterday. Afebrile. 07/30: Remains on mechanical ventilation via tracheostomy. Drowsy/ encephalopathic 07/31: Remains encephalopathic, on mechanical ventilation via tracheostomy. Received 1 unit PRBCs yesterday. No melena or rectal bleeding noted. 08/01: Remains encephalopathic, on mechanical ventilation via tracheostomy. Daily C Pap trials ongoing. Neurologic status remains poor. 08/02: no improvements, no changes. does not meet inpatient criteria, but funding problems prevent appropriate placement. overall prognosis very poor. unlikely that she will survive this medical illness. 08/03: continues without significant changes or improvements. 08/04: Remains encephalopathic, on mechanical ventilation via tracheostomy. Potassium elevated. Ordered Kayexalate. 08/05: Remains encephalopathic, on mechanical ventilation via tracheostomy. Potassium levels coming down. 08/06: Remains encephalopathic on mechanical ventilation via tracheostomy. Tolerating tube feeds. Daily C Pap trials 08/07: Patient awake this a.m., following commands answering yes and no questions. The patient remain on CPAP yesterday for an extended period of time. Plan to begin trach collar trials this a.m.. Patient noted 1 g/dl drop in hemoglobin repeat hemoglobin pending. 08/08: Tmax 99.6. Hemoglobin stabilized. The patient was initiated on T piece trials yesterday morning and sustained T piece trials for greater than 12 hours yesterday. Patient placed back on PRN antianxiety meds Xanax, states she is anxious. T piece trials reinitiated this a.m. Of patient noted to have elevated glucose levels persistent. Levemir 5 units subcutaneous twice a day hemoglobin A1c pending. Creatinine noted to be worsening nephrology is following. Tolerating tube feeds. 08/09: Patient tolerated T piece trials for approximately 14 hours, before returning to CPAP. The patient continues on CPAP 03/10.35. The patient is notably lethargic this a.m., receiving Dilaudid 1 dose last evening, will continue to monitor. Frequency narcotic has been decreased. Creatinine continues to worsen, discussed with nephrology Dr. Elder patient is not a candidate for hemodialysis. Palliative care reconsulted for evaluation and defining goals of care. 08/10: Afebrile .Patient continues on CPAP, responsive. Creatinine continues to worsen, it is felt that the patient will not do well on hemodialysis given her multiple comorbidities. Discussion with palliative care team has been made patient DNR status today following synagogue. 08/11: No acute events overnight. Creatinine continues to rise. is considering possibly Hospice, in the near future. Groin area erythematous and nystatin powder added to medication regimen. Eid maintained to prevent further skin breakdown and measure adequate urinary output. 08/12: Afebrile. No improvement in renal function. Nodding yes and no to questions, continues on CPAP. 08/13: No change in status, noted lethargy. Patient continues on CPAP responsive to questions nodding head. Hemodynamically stable. Palliative care following regarding defining goals of care. 08/14: Patient continues on CPAP. Extensive discussion with Mr. Henson today, he has requested a second opinion regarding possible hemodialysis. Dr. Garcia has been consulted, awaiting any new recommendations. Creatinine continues to rise. 08/15: Delayed entry note-no change in status, she continues on CPAP unable to do T piece trials tidal volume/respiratory volumes very low. Patient continues to be lethargic. Dr. Garcia following. Hemodynamically stable. 08/16: Afebrile .Nephrology following, Dr. Garcia, patient placed on diuretics Diamox and furosemide. Patient continues to be edematous, patient needs to be lethargic but arousable. Objective Vital Signs Date Time Temp Pulse Resp B/P (MAP) Pulse Ox O2 Delivery O2 Flow Rate FiO2 08/16/17 15:10 92 35 08/16/17 14:00 74 08/16/17 13:00 125/60 (81) 08/16/17 12:00 97.6 08/16/17 04:00 15 08/14/17 04:33 Nasal Cannula Intake and Output 08/16/17 08/16/17 08/17/17 08:00 16:00 00:00 Intake Total 510 ml Output Total 350 ml Balance 160 ml Result Diagram: 08/16/17 1012 08/16/17 0537 Imaging Last Impressions Abdomen X-Ray 08/04/17 0000 Signed Impressions: Service Date/Time: Friday, August 04, 2017 22:47 - CONCLUSION: Benign-appearing abdomen. Dobbhoff feeding tube tip in the mid stomach. Charlie Norris MD Chest X-Ray 07/30/17 0000 Signed Impressions: Service Date/Time: Sunday, July 30, 2017 02:49 - CONCLUSION: Probable mild CHF. K. Jhonny Ziegler MD Abdomen/Pelvis CT 07/24/17 0000 Signed Impressions: Service Date/Time: Monday, July 24, 2017 14:57 - CONCLUSION: Pleural effusion and atelectasis right greater than left. Bowel gas pattern is unremarkable. No evidence of an abscess. Some induration anterior abdominal wall with some possible early fluid collection inferiorly within the lower pannus. Jame Preciado MD Head CT [id number]/11/171826 Signed Impressions: Service Date/Time: Tuesday, July 11, 2017 21:23 - CONCLUSION: No acute intracranial abnormality Jaden Clark MD Last Impressions Abdomen X-Ray 07/25/17 0000 Signed Impressions: Service Date/Time: Tuesday, July 25, 2017 17:34 - CONCLUSION: Dobbhoff catheter tip in the distal stomach. Jasen Delvalle MD Abdomen/Pelvis CT 07/24/17 0000 Signed Impressions: Service Date/Time: Monday, July 24, 2017 14:57 - CONCLUSION: Pleural effusion and atelectasis right greater than left. Bowel gas pattern is unremarkable. No evidence of an abscess. Some induration anterior abdominal wall with some possible early fluid collection inferiorly within the lower pannus. Jame Preciado MD Chest X-Ray 07/21/17 0600 Signed Impressions: Service Date/Time: Friday, July 21, 2017 03:13 - CONCLUSION: Nasogastric tube now in place with the tip below the [id number] of the radiograph. No significant interval change in bilateral pulmonary opacity. Differential diagnosis includes pulmonary edema and infection. Angelito Lovett MD Head CT [id number]/11/[id number] Signed Impressions: Service Date/Time: Tuesday, July 11, 2017 21:23 - CONCLUSION: No acute intracranial abnormality Jaden Clark MD Objective Remarks GENERAL: Morbidly obese elderly female s/p trach, lethargic , but is easily arousable SKIN: Warm and dry. HEAD: Normocephalic. EYES: No scleral icterus. No injection or drainage. NECK: trachea midline. trach in place CARDIOVASCULAR: Regular rate and rhythm. RESPIRATORY: on mechanical ventilation via tracheostomy, air entry decreased bilaterally at bases, scattered rhonchi. GASTROINTESTINAL: Abdomen soft, non-tender, nondistended. left non-healing ulcer area from prior PEG site. Dressing clean dry and intact on abdomen. MUSCULOSKELETAL: No cyanosis, or peripheral edema 2+. Neuro: Lethargic , following commands in upper extremities, on mechanical ventilation via tracheostomy A/P Assessment and Plan Assessment: 77yF with morbid obesity and recurrent healthcare associated pneumonia and hypoxic respiratory failure. s/p trach 07/25. contra-indicated for PEG given recent peg site induration. will use DHT for long-term enteral nutrition. no placement plan at this time. Worsening renal failure , due to her complex medical condition , she will not do well on hemodialysis. Plan Neuro: metabolic encephalopathy Seizure disorder Neuropathy Anxiety disorder Off sedation. Monitor neuro status. On Keppra 500mg Q12 oxycodone 5mg po q4h prn for pain Xanax 0.25 every 6 hours when necessary, patient previously on Xanax 0.5 every 6 hours, continue to monitor. Pulm: Acute hypoxic and hypercarbic Respiratory failure Recurrent healthcare associated pneumonia Reintubated 07/19 Continue with vent support keep sat >92% Bronchodilators, ICU vent bundle. SBT daily as lisa s/p trach 07/[address] Espino Pulm toilet, [facility]. Continue CPAP trials and attempt trach collar trials Trach collar trials initiated 08/07/17, and able to continue performance of T piece trial secondary to low respiratory volumes CV: History of hypertension Monitor HR and BP keep MAP>65mmHg Amiodarone 200mg BID 2d echo 07/20: normal biventricular function, EF 60%, RVSP 47 mmHg. : Acute renal failure Free water deficit Monitor renal function, electrolytes replacement as needed. Nephrology consulted in view of rising BUN creatinine. Per nephrology patient will not do well on hemodialysis 2/2 her complex medical condition 08/14 second opinion from nephrology requested- Dr Garcia, follow-up recommendations GI: Morbid Obesity Acute protein calorie malnutrition- moderate On tube feeds- Nepro with goal rate 65ml/hr, On roly Colace, Lactulose for bowel regimen. On Reglan 5mg IV Q8 PRN ICU electrolyte protocol and discontinued ID: Recurrent HCAP pneumonia- resolved. Urinary tract infection- resolved. off abx. monitor clinically.. Urine cx: 07/11: Kleb ESBL, Citrobacter. Repeat urine cx 07/18 - Kirsten Albicans sputum cx: Enterobacter ID following. Nystatin powder to groin areas Heme: Anemia secondary to chronic disease Monitor CBC, on Ferrous sulfate and Folic acid Hep PLT ab -negative 1 unit PRBCs ordered on 07/30 for hemoglobin 7.2, no evidence of melena or rectal bleeding. Endo: Hypothyroidism Hyperglycemia of Critical illness SSI medium scale for glycemic control Levothyroxine 25 mcgs/d hemoglobin A1c- 5.3 08/08 Levemir increased 10 units SQ BID GI prophylaxis- on Pepcid DVT prophylaxis- Heparin SQ Dispo: Awaiting placement. Patient was rejected by [facility] and [facility] for not enough medicare days left. will look into vent-capable SNF facilities. does not meet inpatient criteria. consulted palliative care to assist with deciding goals of therapy as fdc prognosis appears poor. Patient renal function continues to worsen, patient will not do well on hemodialysis. 08/14 second opinion from Nephrology has been requested Palliative Care has been consulted and patient was made CODE STATUS DNR on08/11 Level 2 follow up D/W Dr. Garcia, the patient's does not want dialysis, and has decided against it for his . Diuretics initiated per Dr. Garcia. Discussed with HARDSCAPE FOREMAN at bedside. Physician Gianna Jeff MD Aug 16, 2017 15:55
--- NOTE | 2017-08-16 16:12 | HHI.HCPN ---
Reason for visit a. To assist with evaluation and management of symptoms including: Debility , dyspnea, encephalopathy, pain b. To assist medical decision maker(s) with: better understanding of current medical conditions; weighing benefits/burdens of medical treatment options; making medical treatment decisions. . Subjective/Interval History Follow up visit for symptom management and clarification of medical treatment goals. Mrs. Henson is a 76-year-old female with morbid obesity, recurrent HCAP and hypoxic respiratory failure status post tracheostomy on 08/01/2017, currently tolerating CPAP. Worsening kidney functioning. BUN: 22, creatinine 3.56, GFR 12 Patient's family had requested a second opinion regarding possible hemodialysis. Dr. Garcia evaluated the patient on 08/14/2017; he stated the patient would likely not do well on dialysis and it would likely NOT change the patient's outcome secondary to the patient's comorbid conditions and poor functional status. However, if the patient's insists on hemodialysis that service would not be refused. Patient's prognosis remains poor. Patient is lethargic this afternoon. She opens her eyes briefly to verbal stimuli. She does not attempt to communicate and does not follow commands. Patient shows no signs or symptoms of nonverbal pain on exam. Yesterday she was tearful and grimacing, Is crying and grimacing, indicating pain in her back and abdomen, possibly generalized pain. Unfortunately she is difficult to understand. PRN acetaminophen, oxycodone and hydromorphone are available. Patient has required hydromorphone 0.25 mg IV 3 in the past [address] PEG tube; patient tolerating artificial nutrition via Dobbhoff; Nepro at 65ml/hour. Albumin: 2.0 . Family/friend interactions Spoke with patient's at bedside. Update provided on patient's clinical conditioning including most recent lab work. He reports the patient has been sleeping most of the afternoon; he states he thinks she is becoming increasingly uncomfortable. No decision about hospice has been made at this time ; family remains reluctant.. Patient remains on CPAP and will be difficult to wean; the family does not want to considering taking the patient of life support.. . Advance Directives Advance Directive Specifics Documented care wishes: No known document wishes have been completed. . Objective Vital Signs Date Time Temp Pulse Resp B/P (MAP) Pulse Ox O2 Delivery O2 Flow Rate FiO2 1/11/18 15:10 92 35 08/16/17 14:00 74 08/16/17 13:00 75 125/60 (81) 95 08/16/17 12:00 71 08/16/17 12:00 97.6 71 117/54 (75) 99 08/16/17 12:00 35 08/16/17 11:28 100 35 08/16/17 11:00 66 113/56 (75) 98 08/16/17 10:00 74 08/16/17 10:00 74 121/53 (75) 99 08/16/17 09:00 67 106/51 (69) 98 08/16/17 08:36 100 35 08/16/17 08:00 97.4 58 97/46 (63) 97 08/16/17 08:00 35 08/16/17 08:00 59 08/16/17 07:00 65 107/54 (71) 100 08/16/17 06:00 66 08/16/17 04:00 98.0 62 15 111/63 (79) 100 08/16/17 04:00 62 08/16/17 04:00 35 08/16/17 03:27 100 35 08/16/17 02:00 63 08/16/17 01:58 99 35 08/16/17 00:00 98.2 64 15 145/62 (89) 98 08/16/17 00:00 35 08/16/17 00:00 64 08/15/17 22:00 54 08/15/17 22:00 98 35 08/15/17 20:00 60 08/15/17 20:00 35 08/15/17 20:00 97.9 60 13 105/53 (70) 100 08/15/17 19:46 100 35 08/15/17 18:00 61 117/56 (76) 100 08/15/17 18:00 61 08/15/17 17:00 59 106/57 (73) 99 08/15/17 16:20 99 35 08/15/17 16:00 97.4 51 99/49 (66) 98 08/15/17 16:00 51 08/15/17 16:00 35 Intake & Output 08/16/17 08/16/17 07:00 19:00 Intake Total 510 ml Output Total 350 ml Balance 160 ml Tube Feeding 510 ml Output Urine Total 350 ml . Physical Exam CONSTITUTIONAL/GENERAL: This is a morbidly obese, female patient status post tracheostomy on CPAP TUBES/LINES/DRAINS: Tracheostomy, Dobbhoff, Female external catheter, PIV SKIN: Generalized pallor. Ecchymosis on bilateral upper extremities. Wounds on upper extremities bilaterally HEAD: Atraumatic. Normocephalic. EYES: No scleral icterus. No injection or drainage. ENT: Nose without bleeding or purulent drainage. NECK: Trachea midline. Tracheostomy to CPAP CARDIOVASCULAR: Regular rate and rhythm without murmurs, gallops, or rubs. Upper extremities edematous bilaterally RESPIRATORY/CHEST: Patient is unable to lie flat status post tracheostomy on CPAP. Breath sounds diminished throughout GASTROINTESTINAL: Protuberant abdomen with non-healing ulcer area from prior PEG site. GENITOURINARY: Without palpable bladder distension. MUSCULOSKELETAL: Extremities without clubbing or cyanosis. No obvious deformities. 2+ peripheral edema. NEUROLOGICAL: Patient is lethargic this afternoon. She opens her eyes briefly to verbal stimuli. She does not attempt to communicate and does not follow commands. PSYCHIATRIC: Unable to assess due to patient's clinical condition . Diagnostic Tests Laboratory Laboratory Tests Test 08/14/17 06:16 08/15/17 06:26 08/15/17 11:34 08/16/17 05:37 Blood Urea Nitrogen 117 MG/DL (7-18) 124 MG/DL (7-18) 122 MG/DL (7-18) Creatinine 3.17 MG/DL (0.50-1.00) 3.34 MG/DL (0.50-1.00) 3.56 MG/DL (0.50-1.00) Random Glucose 203 MG/DL (74-106) 137 MG/DL (74-106) 111 MG/DL (74-106) Calcium Level 9.8 MG/DL (8.5-10.1) 9.4 MG/DL (8.5-10.1) 9.3 MG/DL (8.5-10.1) Sodium Level 138 MEQ/L (136-145) 138 MEQ/L (136-145) 137 MEQ/L (136-145) Potassium Level 4.7 MEQ/L (3.5-5.1) 4.9 MEQ/L (3.5-5.1) 4.9 MEQ/L (3.5-5.1) Chloride Level 100 MEQ/L (98-107) 99 MEQ/L (98-107) 99 MEQ/L (98-107) Carbon Dioxide Level 29.2 MEQ/L (21.0-32.0) 29.7 MEQ/L (21.0-32.0) 28.7 MEQ/L (21.0-32.0) Anion Gap 9 MEQ/L (5-15) 9 MEQ/L (5-15) 9 MEQ/L (5-15) Estimat Glomerular Filtration Rate 14 ML/MIN (>89) 13 ML/MIN (>89) 12 ML/MIN (>89) Phosphorus Level 4.6 MG/DL (2.5-4.9) 5.4 MG/DL (2.5-4.9) Magnesium Level 3.8 MG/DL (1.5-2.5) White Blood Count 5.8 TH/MM3 (4.0-11.0) 5.3 TH/MM3 (4.0-11.0) Red Blood Count 2.46 MIL/MM3 (4.00-5.30) 2.14 MIL/MM3 (4.00-5.30) Hemoglobin 7.9 GM/DL (11.6-15.3) 6.9 GM/DL (11.6-15.3) Hematocrit 23.8 % (35.0-46.0) 20.9 % (35.0-46.0) Mean Corpuscular Volume 96.8 FL (80.0-100.0) 97.8 FL (80.0-100.0) Mean Corpuscular Hemoglobin 31.9 PG (27.0-34.0) 32.4 PG (27.0-34.0) Mean Corpuscular Hemoglobin Concent 32.9 % (32.0-36.0) 33.1 % (32.0-36.0) Red Cell Distribution Width 18.1 % (11.6-17.2) 18.3 % (11.6-17.2) Platelet Count 145 TH/MM3 (150-450) 129 TH/MM3 (150-450) Mean Platelet Volume 9.2 FL (7.0-11.0) 10.1 FL (7.0-11.0) Neutrophils (%) (Auto) 79.5 % (16.0-70.0) Lymphocytes (%) (Auto) 9.2 % (9.0-44.0) Monocytes (%) (Auto) 7.7 % (0.0-8.0) Eosinophils (%) (Auto) 3.1 % (0.0-4.0) Basophils (%) (Auto) 0.5 % (0.0-2.0) Neutrophils # (Auto) 4.2 TH/MM3 (1.8-7.7) Lymphocytes # (Auto) 0.5 TH/MM3 (1.0-4.8) Monocytes # (Auto) 0.4 TH/MM3 (0-0.9) Eosinophils # (Auto) 0.2 TH/MM3 (0-0.4) Basophils # (Auto) 0.0 TH/MM3 (0-0.2) CBC Comment AUTO DIFF Differential Comment AUTO DIFF CONFIRMED Platelet Estimate LOW (NORMAL) Platelet Morphology Comment NORMAL (NORMAL) Prothrombin Time 9.6 SEC (9.8-11.6) Prothromb Time International Ratio 0.9 RATIO Albumin 2.0 GM/DL (3.4-5.0) Test 08/16/17 10:12 Hemoglobin 7.4 GM/DL (11.6-15.3) Hematocrit 22.7 % (35.0-46.0) . Result Diagram: 08/16/17 1012 08/16/17 0537 Imaging Last 72 hours Impressions Chest X-Ray 08/15/17 0600 Signed Impressions: Service Date/Time: Tuesday, August 15, 2017 03:11 - CONCLUSION: 1. Cardiomegaly. Diffuse right-sided edema versus pneumonia. There has been no significant change when compared to the prior exam. Gucci Waldrop MD Abdomen X-Ray 08/15/17 0000 Signed Impressions: Service Date/Time: Tuesday, August 15, 2017 17:52 - CONCLUSION: No evidence of obstruction. Feeding tube coiled along the greater curvature of the stomach Jame Preciado MD . Procedures 07/11/2017: Intubation 07/11/2017: OGT placement 07/18/2017: Extubation 07/19/2017: Reintubation 07/25/2017: Tracheostomy . Assessment and Plan Disease Oriented Problem List: (1) Metabolic encephalopathy (2) Seizure disorder (3) Neuropathy (4) Acute respiratory failure with hypoxia and hypercarbia (5) HCAP (healthcare-associated pneumonia) (6) Hypertension (7) Acute kidney insufficiency (8) Protein calorie malnutrition (9) UTI (urinary tract infection) (10) Hypothyroidism (11) Respiratory distress (12) Pneumonia Symptom Scale: (1) Debility 0-10 Scale: Unable to quantify (2) Dyspnea 0-10 Scale: Unable to quantify (3) Encephalopathy 0-10 Scale: Unable to quantify (4) Pain 0-10 Scale: Unable to quantify Comment: Patient reporting intermittent abdominal and back pain, both rated 8 out of 10. Back pain is described as a constant ache that does not radiate. PRN medications are available, being sparingly use. Pertinent Non-Medical Issues Psychosocial: Patient is originally from [place]. She moved to [place] where she met her . Patient has been 2 times. She had 2 children with her first . Her daughter (Manuela) and son (Landon) lives in [place]. Patient has been to her current for approximately 37 years. She worked with Medicare processing claims. Spiritual: Non-practicing Jehov[employer] Witness per spouse Legal: Per [place] statutes, in the absence of written advanced directives healthcare proxy decision-making falls to the patient's . Ethical issues impacting care: No known ethical issues impacting care at this time. . Important Contacts Reji Henson, : [phone] Manuela Kelly: [phone] . Prognosis Patient is a morbidly obese female with recurrent healthcare associated pneumonia, hypoxic respiratory failure and non-healing wounds status post tracheostomy placement. She has had multiple hospitalizations with subsequent LTAC/SNF placement since Dec, 2016. Overall prognosis is very poor; patient will likely not survive this medical illness. . Code Status: No Code Plan * NO CODE * Decision-making: Patient is currently unable to participate in establishment of medical treatment goals given her clinical condition. It is unknown if she will regain capacity. Per [place] statutes, in the absence of written advanced * Discussed patient's case with bedside nurse (Jasmina) and Dr. Newman * Goals aggressive up to the point of cardiopulmonary resuscitation. * Worsening kidney functioning. BUN: 22, creatinine 3.56, GFR 12 Patient's family had requested a second opinion regarding possible hemodialysis. Dr. Garcia evaluated the patient on 08/14/2017; he stated the patient would likely not do well on dialysis and it would likely not change the patient's outcome secondary to the patient's multiple comorbid conditions and poor functional status. However, if the patient's insists on hemodialysis that service would not be refused. Patient's prognosis remains poor. * Symptom management-pain: Patient shows no signs or symptoms of nonverbal pain on exam. Yesterday she was tearful and grimacing, Is crying and grimacing, indicating pain in her back and abdomen, possibly generalized pain. Unfortunately she is difficult to understand. PRN acetaminophen, oxycodone and hydromorphone are available. Patient has required hydromorphone 0.25 mg IV 3 in the past 24 hours. Palliative care will monitor PRN requirements and make recommendations as indicated. * Symptom management-dyspnea: Patient with recurrent HCAP and hypoxic respiratory failure. Status post tracheostomy on 07/25/2017, currently tolerating CPAP Follow-up chest x-ray today on 08/15/17 showing cardiomegaly; diffuse right-sided edema versus pneumonia. There has been no significant change when compared to prior exam. 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 Prior to Dec, 2016 the patient was able to ambulate short distances with a walker. Her states she was otherwise independent for all ADLs. Patient had ongoing hospitalizations and LTAC/SNF recent symptoms 2016. Patient remains dependent for all mobility, ongoing passive ROM exercises. Patient unable to participate secondary to lethargy. It is unlikely the patient will tolerate rehabilitation. * Symptom management-encephalopathy: CT head on 07/11/17 no acute intracranial abnormalities. Patient is usually alert in the morning.Patient is lethargic this afternoon. She opens her eyes briefly to verbal stimuli. She does not attempt to communicate and does not follow commands. * Spoke with patient's at bedside. Update provided on patient's clinical conditioning including most recent lab work. He reports the patient has been sleeping most of the afternoon; he states he thinks she is becoming increasingly uncomfortable. No decision about hospice has been made at this time ; family remains reluctant. Patient remains on CPAP and will be difficult to wean; the family does not want to considering taking the patient of life support. * Palliative care will continue to follow this patient throughout her hospitalization to establish trust, assist with symptom management and clarification of medical treatment goals. . Zo Newell Aug 16, 2017 16:12
[2017-08-16] MEDS: CHLORHEXIDINE GLUCONATE 2 % 1 PACK (2 CLOTHS) TOP SCH (20:24)
[2017-08-16] MEDS: AMITRIPTYLINE HCL 10 MG TAB PO SCH (20:51)
[2017-08-16] MEDS: FUROSEMIDE 100 MG/10 ML VIAL IV PUSH SCH (20:51)
[2017-08-17] VITALS (22 sets, daily range): BP systolic 106–139; BP diastolic 53–62; PULSE 63–91; RESP 15–22; TEMP 98.3–99.8; O2SAT 92–100
[2017-08-17] MEDS: HEPARIN SODIUM - SQ 10,000 UNITS/ML VIAL SQ SCH ×3 (04:27→20:16)
[2017-08-17] MEDS: INSULIN NovoLIN REGULAR SUPPLEMENTAL SCALE SQ SCH ×4 (04:27→23:26)
[2017-08-17] MEDS: LEVOTHYROXINE SODIUM 25 MCG TAB PO SCH (04:27)
[2017-08-17 06:26] LABS: AUTOMATED NEUTROPHIL # 5.6 TH/MM3 (1.8-7.7); BASOPHIL % 0.3 % (0.0-2.0); EOSINOPHIL # 0.1 TH/MM3 (0-0.4); EOSINOPHIL % 1.7 % (0.0-4.0); LYMPH % 5.1 % (9.0-44.0); LYMPHOCYTE # 0.3 TH/MM3 (1.0-4.8); MEAN CELL VOLUME 99.7 FL (80.0-100.0); MEAN CORPUSCULAR HGB CONC 32.1 % (32.0-36.0); MONO % 7.5 % (0.0-8.0); MONOCYTE # 0.5 TH/MM3 (0-0.9); NEUT % 85.4 % (16.0-70.0); PLATELET COUNT 118 TH/MM3 (150-450); RED BLOOD COUNT 2.03 MIL/MM3 (4.00-5.30); RED CELL DISTRIBUTION WIDTH 18.4 % (11.6-17.2); WHITE BLOOD COUNT 6.6 TH/MM3 (4.0-11.0)
[2017-08-17 06:38] LABS: HEMOGLOBIN 6.5 GM/DL (11.6-15.3)
[2017-08-17 06:39] LABS: HEMATOCRIT 20.2 % (35.0-46.0)
[2017-08-17 07:04] LABS: BICARBONATE 27.2 MEQ/L (21.0-32.0); CREATININE 3.97 MG/DL (0.50-1.00); MAGNESIUM 4.1 MG/DL (1.5-2.5); PHOSPHORUS 5.3 MG/DL (2.5-4.9)
[2017-08-17] MEDS: FERROUS SULFATE 300 MG /5ML UDC PO SCH ×2 (08:04→20:16)
[2017-08-17] MEDS: levETIRAcetam 500 MG/5 ML UDC NG SCH ×2 (08:04→20:16)
[2017-08-17] MEDS: FUROSEMIDE 100 MG/10 ML VIAL IV PUSH SCH ×2 (08:04→20:16)
[2017-08-17] MEDS: busPIRone HCL 10 MG TAB PO SCH (08:05)
[2017-08-17] MEDS: ASCORBIC ACID 500 MG TAB PO SCH ×2 (08:05→20:16)
[2017-08-17] MEDS: INSULIN DETEMIR 100 UNITS/ML VIAL SQ SCH ×2 (08:05→20:17)
[2017-08-17] MEDS: GABAPENTIN 300 MG CAP PO SCH (08:05)
[2017-08-17] MEDS: ZINC SULFATE 220 MG CAP PO SCH (08:05)
[2017-08-17] MEDS: DOCUSATE SODIUM 50 MG/SENNA 8.6 MG TAB PO SCH ×2 (08:05→20:16)
[2017-08-17] MEDS: LACTULOSE SYRUP 20 GM/30 ML CUP PO SCH ×3 (08:05→17:46)
[2017-08-17] MEDS: FAMOTIDINE 20 MG TAB NG SCH ×2 (08:05→20:16)
[2017-08-17] MEDS: MULTIVITAMIN TAB PO SCH (08:05)
[2017-08-17] MEDS: AMIODARONE 200 MG TAB PO SCH ×2 (08:05→20:51)
[2017-08-17] MEDS: FOLIC ACID 1 MG TAB PO SCH (08:05)
[2017-08-17] MEDS: SODIUM CHLORIDE 0.9% FLUSH 10 ML FLUSH IV FLUSH SCH ×2 (08:06→20:16)
[2017-08-17] MEDS: NYSTATIN 100,000 U/GM PWD 15 GM BTL TOPICAL SCH ×2 (08:06→20:17)
[2017-08-17] MEDS: COLLAGENASE OINT 30 GM TUBE TOPICAL SCH (08:06)
[2017-08-17] MEDS: ARTIFICIAL TEARS OPTH SOLN 15 ML BTL EACH EYE SCH ×3 (08:06→17:46)
[2017-08-17 08:54] LABS: HEMATOCRIT 20.7 % (35.0-46.0); HEMOGLOBIN 6.7 GM/DL (11.6-15.3)
[2017-08-17] MEDS: RESP: ALBUTEROL 2.5 MG/IPRATROPIUM 0.5 MG NEB (PRN) NEB (11:40)
--- NOTE | 2017-08-17 14:41 | HHI.CCPN ---
Subjective Remarks/Hospital Course 07/11: 77-year-old morbidly obese female patient sent in from halfway, due to increased lethargy for the last 2 days, hypoglycemia early in the day with sugars of 44, given glucagon, chest x-ray showing a pneumonia according to facility staff, EMS noted the patient was fairly disoriented, GCS 6, and started bag valve masking her because of respiratory distress and hypoxia with sats in the 87% range despite oxygenation. Patient was brought in bag-valve- mask in progress and was immediately intubated in the emergency department by ED attending. 07/12: Sedated, orally intubated on mechanical ventilation. 07/13 Patient is sedated with Fentanyl and intubated. Afebrile. 07/14 No events overnight, Sedated with Fentanyl and Versed. Afebrile. Failed CPAP trials yesterday. 07/15 No events overnight. Sedated and intubated. ABG on CPAP yesterday showed resp acidosis with PH 7.22 and CO2: 58 07/16 Patient remains sedated and intubated 07/17. No events overnight. Remains sedated and intubated 07/18 Patient remains intubated off sedation. Afebrile. 07/19 Patient s/p extubation yesterday on BIPAP overnight. Awake. ABG last night showed resp acidosis with PH: 7.24, pCO2: 66 07/20 Patient was reintubated yesterday for resp failure. Sedated and intubated. Afebrile. 07/21: new HCAP with GNRs in sputum. persistent respiratory failure. likely will require long-term ventilation and slow wean. will consult general surgery for re-do trach and gastric access. 07/22: no changes. no improvements. gen surgery planning PEG/Trach next week. 07/23: sputum growing enterobacter; now on Cefepime per ID. neuro exam still stable, but fails weaning trials quickly. 07/24: no changes. still failing cpap and weaning trials. CT abd/pelvis done at gen surg request without overt abscess at prior peg site. 07/25: s/p trach today. doing well. still failing cpap. approved for LTAC. surgical contra-indication to PEG placement with induration at old PEG site: will use DHT for enteral access and tube feeds. ID giving final recs for duration of therapy. stable for discharge to LTAC when bed available. 07/26 No events overnight. Patient was rejected by [facility] this morning per case checker. Afebrile. 07/27 Patient is sedated with Diprivan and intubated. Afebrile. 07/28 No events overnight. Off sedation. On ventilator via trach. 07/29 No events overnight. Tolerated CPAP for most f day yesterday. Afebrile. 07/30: Remains on mechanical ventilation via tracheostomy. Drowsy/ encephalopathic 07/31: Remains encephalopathic, on mechanical ventilation via tracheostomy. Received 1 unit PRBCs yesterday. No melena or rectal bleeding noted. 08/01: Remains encephalopathic, on mechanical ventilation via tracheostomy. Daily C Pap trials ongoing. Neurologic status remains poor. 08/02: no improvements, no changes. does not meet inpatient criteria, but funding problems prevent appropriate placement. overall prognosis very poor. unlikely that she will survive this medical illness. 08/03: continues without significant changes or improvements. 08/04: Remains encephalopathic, on mechanical ventilation via tracheostomy. Potassium elevated. Ordered Kayexalate. 08/05: Remains encephalopathic, on mechanical ventilation via tracheostomy. Potassium levels coming down. 08/06: Remains encephalopathic on mechanical ventilation via tracheostomy. Tolerating tube feeds. Daily C Pap trials 08/07: Patient awake this a.m., following commands answering yes and no questions. The patient remain on CPAP yesterday for an extended period of time. Plan to begin trach collar trials this a.m.. Patient noted 1 g/dl drop in hemoglobin repeat hemoglobin pending. 08/08: Tmax 99.6. Hemoglobin stabilized. The patient was initiated on T piece trials yesterday morning and sustained T piece trials for greater than 12 hours yesterday. Patient placed back on PRN antianxiety meds Xanax, states she is anxious. T piece trials reinitiated this a.m. Of patient noted to have elevated glucose levels persistent. Levemir 5 units subcutaneous twice a day hemoglobin A1c pending. Creatinine noted to be worsening nephrology is following. Tolerating tube feeds. 08/09: Patient tolerated T piece trials for approximately 14 hours, before returning to CPAP. The patient continues on CPAP 03/10.35. The patient is notably lethargic this a.m., receiving Dilaudid 1 dose last evening, will continue to monitor. Frequency narcotic has been decreased. Creatinine continues to worsen, discussed with nephrology Dr. Elder patient is not a candidate for hemodialysis. Palliative care reconsulted for evaluation and defining goals of care. 08/10: Afebrile .Patient continues on CPAP, responsive. Creatinine continues to worsen, it is felt that the patient will not do well on hemodialysis given her multiple comorbidities. Discussion with palliative care team has been made patient DNR status today following gnosticism. 08/11: No acute events overnight. Creatinine continues to rise. is considering possibly Hospice, in the near future. Groin area erythematous and nystatin powder added to medication regimen. Eid maintained to prevent further skin breakdown and measure adequate urinary output. 08/12: Afebrile. No improvement in renal function. Nodding yes and no to questions, continues on CPAP. 08/13: No change in status, noted lethargy. Patient continues on CPAP responsive to questions nodding head. Hemodynamically stable. Palliative care following regarding defining goals of care. 08/14: Patient continues on CPAP. Extensive discussion with Mr. Henson today, he has requested a second opinion regarding possible hemodialysis. Dr. Garcia has been consulted, awaiting any new recommendations. Creatinine continues to rise. 08/15: Delayed entry note-no change in status, she continues on CPAP unable to do T piece trials tidal volume/respiratory volumes very low. Patient continues to be lethargic. Dr. Garcia following. Hemodynamically stable. 08/16: Afebrile .Nephrology following, Dr. Garcia, patient placed on diuretics Diamox and furosemide. Patient continues to be edematous, patient needs to be lethargic but arousable. 08/17: Patient lethargic. Hgb dropping, she was transfused 2 units of packed red blood cells. Patient was noted to have vaginal bleeding during bathing process today. [employer] consulted. INR, fibrinogen level pending. No other active signs of bleeding. Objective Vital Signs Date Time Temp Pulse Resp B/P (MAP) Pulse Ox O2 Delivery O2 Flow Rate FiO2 08/17/17 14:00 77 08/17/17 13:48 99.3 22 123/58 96 08/17/17 12:00 35 08/14/17 04:33 Nasal Cannula Intake and Output 08/17/17 08/17/17 08/18/17 08:00 16:00 00:00 Intake Total 600 ml 430 ml Output Total 200 ml Balance 400 ml 430 ml Result Diagram: 08/17/17 0810 08/17/17 0525 Imaging Last Impressions Abdomen X-Ray 08/04/17 0000 Signed Impressions: Service Date/Time: Friday, August 04, 2017 22:47 - CONCLUSION: Benign-appearing abdomen. Dobbhoff feeding tube tip in the mid stomach. Charlie Norris MD Chest X-Ray 07/30/17 0000 Signed Impressions: Service Date/Time: Sunday, July 30, 2017 02:49 - CONCLUSION: Probable mild CHF. K. Jhonny Ziegler MD Abdomen/Pelvis CT 07/24/17 0000 Signed Impressions: Service Date/Time: Monday, July 24, 2017 14:57 - CONCLUSION: Pleural effusion and atelectasis right greater than left. Bowel gas pattern is unremarkable. No evidence of an abscess. Some induration anterior abdominal wall with some possible early fluid collection inferiorly within the lower pannus. Jame Preciado MD Head CT [id number]/11/[id number] Signed Impressions: Service Date/Time: Tuesday, July 11, 2017 21:23 - CONCLUSION: No acute intracranial abnormality Jaden Clark MD Last Impressions Abdomen X-Ray 07/25/17 0000 Signed Impressions: Service Date/Time: Tuesday, July 25, 2017 17:34 - CONCLUSION: Dobbhoff catheter tip in the distal stomach. Jasen Delvalle MD Abdomen/Pelvis CT 07/24/17 0000 Signed Impressions: Service Date/Time: Monday, July 24, 2017 14:57 - CONCLUSION: Pleural effusion and atelectasis right greater than left. Bowel gas pattern is unremarkable. No evidence of an abscess. Some induration anterior abdominal wall with some possible early fluid collection inferiorly within the lower pannus. Jame Preciado MD Chest X-Ray 07/21/17 0600 Signed Impressions: Service Date/Time: Friday, July 21, 2017 03:13 - CONCLUSION: Nasogastric tube now in place with the tip below the [id number] of the radiograph. No significant interval change in bilateral pulmonary opacity. Differential diagnosis includes pulmonary edema and infection. Angelito Lovett MD Head CT [id number]/[id number] Signed Impressions: Service Date/Time: Tuesday, July 11, 2017 21:23 - CONCLUSION: No acute intracranial abnormality Jaden Clark MD Objective Remarks GENERAL: Morbidly obese elderly female s/p trach, lethargic , but is easily arousable SKIN: Warm and dry. HEAD: Normocephalic. EYES: No scleral icterus. No injection or drainage. NECK: trachea midline. trach in place CARDIOVASCULAR: Regular rate and rhythm. RESPIRATORY: on mechanical ventilation via tracheostomy, air entry decreased bilaterally at bases, scattered rhonchi. GASTROINTESTINAL: Abdomen soft, non-tender, nondistended. left non-healing ulcer area from prior PEG site. Dressing clean dry and intact on abdomen. MUSCULOSKELETAL: No cyanosis, or peripheral edema 2+. Neuro: Lethargic , on mechanical ventilation / CPAP via tracheostomy A/P Assessment and Plan Assessment: 77yF with morbid obesity and recurrent healthcare associated pneumonia and hypoxic respiratory failure. s/p trach 07/25. contra-indicated for PEG given recent peg site induration. will use DHT for long-term enteral nutrition. no placement plan at this time. Worsening renal failure , due to her complex medical condition , she will not do well on hemodialysis. Plan Neuro: metabolic encephalopathy Seizure disorder Neuropathy Anxiety disorder Off sedation. Monitor neuro status. On Keppra 500mg Q12 oxycodone 5mg po q4h prn for pain Xanax 0.25 every 6 hours when necessary, patient previously on Xanax 0.5 every 6 hours, continue to monitor. Pulm: Acute hypoxic and hypercarbic Respiratory failure Recurrent healthcare associated pneumonia Reintubated 07/19 Continue with vent support keep sat >92% Bronchodilators, ICU vent bundle. SBT daily as lisa s/p trach 07/[address] Espino Pulm toilet, [facility]. Continue CPAP trials and attempt trach collar trials Trach collar trials initiated 08/07/17, and able to continue performance of T piece trial secondary to low respiratory volumes CV: History of hypertension Monitor HR and BP keep MAP>65mmHg Amiodarone 200mg BID 2d echo 07/20: normal biventricular function, EF 60%, RVSP 47 mmHg. : Acute renal failure Free water deficit Vaginal bleeding Monitor renal function, electrolytes replacement as needed. Nephrology consulted in view of rising BUN creatinine. Per nephrology patient will not do well on hemodialysis 2/2 her complex medical condition 08/14 second opinion from nephrology requested- Dr Garcia, follow-up recommendations 08/17 [employer] consulted GI: Morbid Obesity Acute protein calorie malnutrition- moderate On tube feeds- Nepro with goal rate 65ml/hr, On roly Colace, Lactulose for bowel regimen. On Reglan 5mg IV Q8 PRN ICU electrolyte protocol and discontinued ID: Recurrent HCAP pneumonia- resolved. Urinary tract infection- resolved. off abx. monitor clinically.. Urine cx: 07/11: Kleb ESBL, Citrobacter. Repeat urine cx 07/18 - Kirsten Albicans sputum cx: Enterobacter ID following. Nystatin powder to groin areas Heme: Anemia secondary to chronic disease Acute blood loss/vaginal bleeding Monitor CBC, on Ferrous sulfate and Folic acid Hep PLT ab -negative 1 unit PRBCs ordered on 07/30 for hemoglobin 7.2, no evidence of melena or rectal bleeding. Hemoglobin 6.8patient transfused 2 units packed red blood cells, follow-up post transfusion CBC Blood loss may be secondary to uremia, no other signs of active bleeding will consider DDAVP, follow up fibrinogen level and INR Endo: Hypothyroidism Hyperglycemia of Critical illness SSI medium scale for glycemic control Levothyroxine 25 mcgs/d hemoglobin A1c- 5.3 08/08 Levemir increased 10 units SQ BID GI prophylaxis- on Pepcid DVT prophylaxis- Heparin SQ Dispo: Awaiting placement. Patient was rejected by [facility] for not enough medicare days left. will look into vent-capable SNF facilities. does not meet inpatient criteria. consulted palliative care to assist with deciding goals of therapy as nursing home prognosis appears poor. Patient renal function continues to worsen, patient will not do well on hemodialysis. 08/14 second opinion from Nephrology has been requested Palliative Care has been consulted and patient was made CODE STATUS DNR on08/11 Level 3 follow up Discussed with PLATE PUT IN WORKER at bedside (Vaibhav) Physician Gianna Jeff MD Aug 17, 2017 14:41
[2017-08-17 16:46] LABS: HEMATOCRIT 26.1 % (35.0-46.0); HEMOGLOBIN 8.5 GM/DL (11.6-15.3)
[2017-08-17 17:02] LABS: PROTHROMBIN TIME - PATIENT 9.9 SEC (9.8-11.6)
--- NOTE | 2017-08-17 17:24 | HHI.NPPN ---
Subjective General Problems: Anemia, Edema Renal Failure: Acute History of Present Illness 77-year-old with multiple medical problems acute renal failure and chronic kidney disease, morbid obesity, CHF, pneumonia, respiratory failure status post trach, Now with worsening acute renal failure Interval History Had presented with vaginal bleeding Review of Systems General General Remarks generalized pain Objective Data Data 08/17/17 08/18/17 19:00 07:00 Intake Total 880 ml Balance 880 ml Packed Cells 800 ml Blood Product IV Normal Saline Flush 80 ml Vital Signs Date Time Temp Pulse Resp B/P (MAP) Pulse Ox O2 Delivery O2 Flow Rate FiO2 08/17/17 16:00 35 08/17/17 16:00 99.5 72 22 115/56 (75) 94 08/17/17 16:00 66 08/17/17 14:57 92 35 08/17/17 14:00 77 08/17/17 13:48 99.3 89 22 123/58 96 08/17/17 13:28 99.8 84 22 123/58 97 08/17/17 12:00 86 08/17/17 12:00 99.2 82 16 123/53 (76) 94 08/17/17 12:00 35 08/17/17 11:41 95 35 08/17/17 11:29 99.6 91 139/62 95 08/17/17 11:10 99.7 88 95 08/17/17 10:00 91 08/17/17 08:00 85 08/17/17 08:00 35 08/17/17 08:00 99.4 88 16 124/58 (80) 100 08/17/17 07:58 97 35 08/17/17 06:00 86 08/17/17 04:00 79 08/17/17 04:00 35 08/17/17 04:00 99.0 79 15 123/58 (79) 100 08/17/17 03:25 98 35 08/17/17 02:00 76 08/17/17 00:26 98 35 08/17/17 00:00 66 08/17/17 00:00 35 08/17/17 00:00 98.3 66 15 108/53 (71) 96 08/16/17 22:00 75 08/16/17 20:10 97 35 08/16/17 20:00 35 08/16/17 20:00 99.0 79 15 160/72 (101) 98 08/16/17 20:00 79 08/16/17 18:00 82 166/67 (100) 97 08/16/17 18:00 80 -: 08/17/17 1600 08/17/17 0525 Tubes & Lines: Eid Tubes & Lines Comment ivelisse tijerina Physical Exam General Appearance: Obese, Malnourished Eyes Eye Exam: Pupils Equal Throat Throat Exam: Oral Mucosa [place] & Moist Neck Neck Exam: Neck Supple Pulmonary Resp Exam: Diminished Breath Sounds Cardiology CV Exam: Regular, Normal Sinus Rhythm Gastrointestinal/Abdomen GI Exam: Soft, Non-Tender, Bowel Sounds Present Musculoskeletal MS Exam: Unable to Ambulate Integumentary Skin Exam: Warm, Dry Extremeties Extremities Exam: Pedal Pulses Palpable, Moderate Edema, Pitting Edema, Dependent Edema Neurologic Neuro Exam: Moving All Extremities, Obtunded VTE Prophylaxis Device: SCDs Assessment/Plan Discussed Condition With: Spouse Assessment Summary: RADHA/Acute Renal Failure, Fluid/Volume Overload, Hypertension Problem List: (1) Acute kidney insufficiency ICD Codes: N28.9 - Disorder of kidney and ureter, unspecified Plan: RADHA with prolonged hospitalization and multiple comorbidities She does have component of congestive heart failure, pulmonary artery pressures are increased also she has peripheral swelling mainly and is suffering from right sided heart failure She has peripheral edema Skin breakdown Received 2 units of packed red blood cell I discussed dialysis with patient's non olguric Azotemia worsening Family not ready for hospice trying Diamox and Lasix 80 mg IV as UOP 425 ml refused dialysis (2) Hyperkalemia ICD Codes: E87.5 - Hyperkalemia Plan: Improved. Continue to monitor. (3) Acute respiratory failure with hypoxia and hypercarbia ICD Codes: J96.01 - Acute respiratory failure with hypoxia; J96.02 - Acute respiratory failure with hypercapnia Plan: On CPAP, trach. (4) Hypertension ICD Codes: I10 - Essential (primary) hypertension Plan: Hypotensive overnight; hold antihypertensives if SBP < 100mmHg (5) Encephalopathy ICD Codes: G93.40 - Encephalopathy, unspecified Plan: Prognosis appears to be poor. Plan patient was seen and examined. Because of multiple comorbidities, I had suggested to the that she will not do well on dialysis, and had recommended palliative care, hospice. "she is not a candidate for dialysis" is not accurate description of my opinion and recommendation to the patient . If the insists on proceeding with dialysis, I would not refuse to offer that service. I have read the notes. Palliative care had brought up the topic of hospice. The now wants a second opinion as he thinks that "her kidneys were never treated". I will see her only if necessary, I will sign off at this time. Gail Garcia MD Aug 17, 2017 17:24
[2017-08-17] MEDS: CHLORHEXIDINE GLUCONATE 2 % 1 PACK (2 CLOTHS) TOP SCH (19:30)
[2017-08-17] MEDS: AMITRIPTYLINE HCL 10 MG TAB PO SCH (20:16)
--- NOTE | 2017-08-17 21:27 | PD.CONS ---
HPI Chief Complaint vaginal bleeding Date Seen: Aug 17, 2017 Time Seen: 21:00 Travel History International Travel<30 Days: No Contact w/Intl Traveler<30Days: No Known Affected Area: No History of Present Illness HPI Pt is a 77 yo P2 female currently on admission in the ICU and on tracheostomy/ vent. Patient was not responsive during my visit and information was obtained from her . Apparently patient was brought to the ER from her senior care by EMS for increased lethargy for 2 days. She was intubated in ER. She was subsequently extubated 07-17-2017 and placed on BiPAP but had to be re- intubated 07-19-2017 and placed on mechanical ventilator. She had tracheostomy on 07-25-2017. Patient has significant co-morbidity in addition to the respiratory failure, with morbid obesity, HTN, Diabetes mellitus, GERD, Atrial fibrillation, COPD and COPD. She has developed renal insufficiency She has had blood transfusion for anemia Apparently she was noted to have some vaginal bleeding. 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 She has no h/o vaginal since then. Hg was 6.8 before recent transfusion with post transfusion Hg of 8.5g/dL. History Past Medical History Narrative Medical Morbid Obesity, Hypothyroidism Hypertension Diabetes mellitus Atrial fibrillation CHF COPD GERD Renal insufficiency Obstetric History Obstetric History x 2 Last menses 1990 Past Surgical History Narrative Surgical Exploratory laparotomy 2016 Appendectomy Cholecystectomy Trachestomy/PEG placement and subsequent closure Tracheostomy 07/2017 Family History Narrative Family History Brother has diabetes/heart disease No family h/o female reproductive system cancer Family History: Negative (Brother has diabetes/heart disease) Social History Alcohol Use: No Tobacco Use: No Substance Abuse: No Allergies-Medications (Allergen,Severity, Reaction): Coded Allergies: FRANCK Inhibitors (Verified Allergy, Unknown, 07/11/17) Dqhmfzs-Hds-Low Reductase Inhibitor (Verified Allergy, Unknown, 07/11/17) Home Meds Active Scripts Fluconazole (Diflucan) 100 Mg Tab, 100 MG PO DAILY for fungal infection for 14 Days, #14 TAB Prov:Rafael Wilson MD 07/25/17 Reported Medications Zinc Sulfate (Zinc Sulfate) 220 Mg (50 Mg Zinc) Cap, 220 MG PO DAILY for Nutritional Supplement, CAP 0 Refills 07/11/17 Ascorbic Acid (Ascorbic Acid) 500 Mg Tab, 500 MG PO BID, TAB 07/11/17 Tramadol (Tramadol) 50 Mg Tab, 50 MG PO Q6H Y for PAIN, TAB 0 Refills 07/11/17 Spironolactone (Spironolactone) 25 Mg Tab, 12.5 MG PO HS, #15 TAB 0 Refills 07/11/17 Collagenase Topical (Santyl Topical) 250 Unit/Gm Oint, 1 APPLIC TOPICAL DAILY for Wound Management, #15 GM 0 Refills 07/11/17 Lactobacillus Acidophilus (Probiotic) 10 Billion Cell Cap, 1 CAP PO TIDAC for Nutritional Supplement, #90 CAP 0 Refills 07/11/17 Prednisone (Prednisone) 10 Mg Tab, 10 MG PO DAILY, TAB 0 Refills 07/11/17 Multiple Vitamin (Multiple Vitamin) 1 Tab, 1 TAB PO DAILY for Nutritional Supplement, TAB 0 Refills 07/11/17 Modafinil (Modafinil) 200 Mg Tab, 200 MG PO DAILY for Manage daytime Sleepiness , TAB 0 Refills 07/11/17 Metoprolol Tartrate (Metoprolol Tartrate) 25 Mg Tab, 25 MG PO BID, #60 TAB 0 Refills 07/11/17 Levothyroxine (Levothyroxine) 25 Mcg Tab, 25 MCG PO DAILY for Thyroid, #30 TAB 0 Refills 07/11/17 Levetiracetam (Levetiracetam) 500 Mg Tab, 500 MG PO BID for Control Seizures, # 60 TAB 0 Refills 07/11/17 Ipratropium-Albuterol Inh (Combivent Respimat Inh) 20-100 Half-Way/Act Aero, 1 PUFF INH QID for Asthma Management, #1 INHALER 0 Refills 07/11/17 Insulin Detemir Inj (Levemir Inj) 1,000 unit/ 10 ML Vial, 25 UNITS SQ BID for Blood Sugar Management, VIAL 0 Refills Do not mix with any other Insulin. 07/11/17 Insulin Lispro (Human) Inj (Humalog Inj) 1,000 Unit/10 Ml Vial, 3-12 UNITS SQ ACHS for Blood Sugar Management, #1 VIAL 0 Refills Max dose at bedtime:( )units; sugars < 70,(0)units; sugars 150-199,(2)units; sugars 200-249,(4)units; sugars 250-299,(7)units; sugars 300-349,(10)units; sugars more than 349,(12)units. 07/11/17 Guaifenesin-Dextromethorphan Liq (Guaifenesin DM Liq) 10-100 Mg/5 Ml Liq, 7.5 ML PO Q6HR Y for COUGH, #1 BOTTLE 0 Refills 07/11/17 Glucagon (Rdna) Inj Kit (Glucagon Emergency Inj Kit) 1 Mg Kit, 1 MG IM ONCE Y for Blood Sugar Management, #1 KIT 0 Refills 07/11/17 Gabapentin (Gabapentin) 300 Mg Cap, 300 MG PO TID, #90 CAP 0 Refills 07/11/17 Furosemide (Furosemide) 40 Mg Tab, 40 MG PO DAILY, #30 TAB 0 Refills 07/11/17 Folic Acid (Folic Acid) 0.4 Mg Tab, 1 MG PO DAILY for Nutritional Supplement, TAB 0 Refills 07/11/17 Ferrous Sulfate (Ferrous Sulfate) 325 Mg (65 Mg Iron) Tablet, 325 MG PO DAILY for Nutritional Supplement, #30 TAB 0 Refills 07/11/17 Famotidine (Famotidine) 20 Mg Tab, 20 MG PO BID, #60 TAB 0 Refills 07/11/17 Bisacodyl Supp (Dulcolax Supp) 10 Mg Supp, 10 MG RECTAL DAILY Y for CONSTIPATION , #12 SUPP 0 Refills 07/11/17 Docusate Sodium (Docusate Sodium) 100 Mg Cap, 100 MG PO BID Y for CONSTIPATION, #60 CAP 0 Refills 07/11/17 Magnesium Citrate Liq (Citroma Liq) 300 Ml Liq, 296 ML PO DIRECTED, #1 BOTTLE 0 Refills 07/11/17 Buspirone (Buspirone) 10 Mg Tab, 10 MG PO BID for Anxiety, TAB 0 Refills 07/11/17 Amitriptyline (Amitriptyline) 10 Mg Tab, 10 MG PO HS, TAB 07/11/17 Amiodarone (Amiodarone) 200 Mg Tab, 200 MG PO BID for Regulate Heart Beat, #60 TAB 0 Refills 07/11/17 Alprazolam (Alprazolam) 0.5 Mg Tab, 0.5 MG PO Q6H Y for ANXIETY, TAB 0 Refills 07/11/17 Acetaminophen (Tylenol) 325 Mg Tab, 650 MG PO Q4H Y for FEVER, TAB 0 Refills 07/11/17 Acetaminophen (Tylenol) 325 Mg Tab, 650 MG PO Q4H Y for PAIN SCALE 1 TO 10, TAB 0 Refills 07/11/17 Review of Systems Except as stated in HPI: all other systems reviewed are Neg Physical Exam Exam Limitations: Altered Mental Status Vital Signs Date Time Temp Pulse Resp B/P (MAP) Pulse Ox O2 Delivery O2 Flow Rate FiO2 08/17/17 20:00 35 08/17/17 20:00 70 08/17/17 20:00 98.6 70 16 106/53 (70) 100 08/17/17 18:00 81 08/17/17 16:00 35 08/17/17 16:00 99.5 72 22 115/56 (75) 94 08/17/17 16:00 66 08/17/17 14:57 92 35 08/17/17 14:00 77 08/17/17 13:48 99.3 89 22 123/58 96 08/17/17 13:28 99.8 84 22 123/58 97 08/17/17 12:00 86 08/17/17 12:00 99.2 82 16 123/53 (76) 94 08/17/17 12:00 35 08/17/17 11:41 95 35 08/17/17 11:29 99.6 91 139/62 95 08/17/17 11:10 99.7 88 95 08/17/17 10:00 91 08/17/17 08:00 85 08/17/17 08:00 35 08/17/17 08:00 99.4 88 16 124/58 (80) 100 08/17/17 07:58 97 35 08/17/17 06:00 86 08/17/17 04:00 79 08/17/17 04:00 35 08/17/17 04:00 99.0 79 15 123/58 (79) 100 08/17/17 03:25 98 35 08/17/17 02:00 76 08/17/17 00:26 98 35 08/17/17 00:00 66 08/17/17 00:00 35 08/17/17 00:00 98.3 66 15 108/53 (71) 96 08/16/17 22:00 75 Narrative GENERAL: Well-nourished, well-developed patient. SKIN: Warm and dry. HEAD: Normocephalic and atraumatic. EYES: No scleral icterus. No injection or drainage. ENT: No nasal drainage noted. Mucous membranes pink. Airway patent. NECK: Supple, trachea midline. No JVD. CARDIOVASCULAR: Regular rate and rhythm without murmurs, gallops, or rubs. RESPIRATORY: Breath sounds equal bilaterally. No accessory muscle use. BREASTS: Bilateral exam showed no masses , no retractions, no nipple discharge. ABDOMEN/GI: Abdomen soft, non-tender, bowel sounds present, no rebound, no guarding Morbidly obese with overhanging pannus GENITOURINARY: External Genitalia: atrophic vaginitis. No vaginal bleeding noted or on examining finger after exam. Normal cervix. Could not assess uterus o/a body habitus. FLEMING catheter draining EXTREMITIES: No cyanosis or edema. BACK: Nontender without obvious deformity. No CVA tenderness. NEUROLOGICAL: Awake and alert. Motor and sensory grossly within normal limits. Five out of 5 muscle strength in all muscle groups. Normal speech. Data Data Vital Signs Reviewed: Yes Orders Orders Hematocrit (Hct) (08/17/17 06:44) Hemoglobin (Hgb) (08/17/17 06:44) Red Blood Cells (Rbc) (08/17/17 09:14) Hgb & Hct (08/17/17 16:30) Prothrombin Time / Inr (Pt) (08/17/17 14:28) Prothrombin Time / Inr (Pt) (08/18/17 06:00) Cbc No Diff, Includes Plts (08/18/17 06:00) Comprehensive Metabolic Panel (08/18/17 06:00) Hgb & Hct (08/17/17 23:59) Hgb & Hct (08/18/17 11:59) Hgb & Hct (08/18/17 23:59) Hgb & Hct (08/19/17 11:59) Hgb & Hct (08/19/17 23:59) Hgb & Hct (08/20/17 11:59) Consult Gynecology (08/17/17 ) Fibrinogen (08/17/17 14:41) (Hub Use Only)Inp Phy Cons/Ref (08/17/17 ) Labs Laboratory Tests Test 08/17/17 05:25 08/17/17 08:10 08/17/17 16:00 White Blood Count 6.6 Red Blood Count 2.03 Hemoglobin 6.5 6.7 8.5 Hematocrit 20.2 20.7 26.1 Mean Corpuscular Volume 99.7 Mean Corpuscular Hemoglobin 32.0 Mean Corpuscular Hemoglobin Concent 32.1 Red Cell Distribution Width 18.4 Platelet Count 118 Mean Platelet Volume 10.0 Neutrophils (%) (Auto) 85.4 Lymphocytes (%) (Auto) 5.1 Monocytes (%) (Auto) 7.5 Eosinophils (%) (Auto) 1.7 Basophils (%) (Auto) 0.3 Neutrophils # (Auto) 5.6 Lymphocytes # (Auto) 0.3 Monocytes # (Auto) 0.5 Eosinophils # (Auto) 0.1 Basophils # (Auto) 0.0 CBC Comment AUTO DIFF Differential Comment AUTO DIFF CONFIRMED Platelet Estimate LOW Platelet Morphology Comment NORMAL Blood Urea Nitrogen 138 Creatinine 3.97 Random Glucose 196 Calcium Level 9.0 Phosphorus Level 5.3 Magnesium Level 4.1 Sodium Level 135 Potassium Level 5.3 Chloride Level 99 Carbon Dioxide Level 27.2 Anion Gap 9 Estimat Glomerular Filtration Rate 11 Prothrombin Time 9.9 Prothromb Time International Ratio 1.0 Fibrinogen 546 Date/Time Source Procedure Growth Status 07/20/17 14:00 Blood Peripheral Aerobic Blood Culture - Final NO GROWTH IN 5 DAYS Complete 07/20/17 14:00 Blood Peripheral Anaerobic Blood Culture - Final NO GROWTH IN 5 DAYS Complete 07/20/17 10:10 Sputum Endotracheal Gram Stain - Final Complete 07/20/17 10:10 Sputum Culture - Final Enterobacter Cloacae Complete 07/18/17 05:00 Urine Catheterized Urine Urine Culture - Final Kirsten Albicans Complete MDM Plan MANDARIN SPEAKING NANNY was consulted o/a report vaginal bleeding. Patient is a 77 yo currently with respiratory failure on ventilator/post tracheostomy, as well as JENNIE. She has significant co-morbidity including morbid obesity. No vaginal bleeding noted on exam today. Cervix is wnl, but we could not assess uterus o/a body habitus. Pelvic ultrasound could be done to assess endometrium but I believe this would be low yield, taking into account her current condition. If there is any vaginal bleeding it is minimal and is not contributing significantly to her anemia. Thank you for consult. Admitting diagnosis: pneumonia/severe sepsis/respiratory failure/intubated Scripts Fluconazole (Diflucan) 100 Mg Tab 100 MG PO DAILY for fungal infection for 14 Days, #14 TAB Prov: Rafael Wilson MD 07/25/17 Zia Martinez MD Aug 17, 2017 21:27
[2017-08-17 23:54] LABS: HEMATOCRIT 25.6 % (35.0-46.0); HEMOGLOBIN 8.3 GM/DL (11.6-15.3)
[2017-08-18] VITALS (18 sets, daily range): BP systolic 97–186; BP diastolic 51–85; PULSE 52–87; RESP 15–20; TEMP 97.8–99; O2SAT 95–100
[2017-08-18] MEDS: HEPARIN SODIUM - SQ 10,000 UNITS/ML VIAL SQ SCH ×3 (04:06→20:38)
[2017-08-18] MEDS: INSULIN NovoLIN REGULAR SUPPLEMENTAL SCALE SQ SCH ×3 (04:53→17:38)
[2017-08-18] MEDS: LEVOTHYROXINE SODIUM 25 MCG TAB PO SCH (04:53)
[2017-08-18 05:27] LABS: HEMATOCRIT 26.8 % (35.0-46.0); HEMOGLOBIN 8.6 GM/DL (11.6-15.3); MEAN CELL VOLUME 93.7 FL (80.0-100.0); MEAN CORPUSCULAR HEMOGLOBIN 30.2 PG (27.0-34.0); MEAN CORPUSCULAR HGB CONC 32.2 % (32.0-36.0); MEAN PLATELET VOLUME 9.6 FL (7.0-11.0); PLATELET COUNT 118 TH/MM3 (150-450); RED BLOOD COUNT 2.86 MIL/MM3 (4.00-5.30); RED CELL DISTRIBUTION WIDTH 20.5 % (11.6-17.2)
[2017-08-18 05:56] LABS: ALBUMIN 2.2 GM/DL (3.4-5.0); ALKALINE PHOSPHATASE 403 U/L (45-117); ALT (GPT) 27 U/L (10-53); AST (GOT) 9 U/L (15-37); BICARBONATE 28.7 MEQ/L (21.0-32.0); BLOOD UREA NITROGEN 150 MG/DL (7-18); CALCIUM 8.9 MG/DL (8.5-10.1); CHLORIDE 97 MEQ/L (98-107); CREATININE 4.24 MG/DL (0.50-1.00); GLOMERULAR FILTRATION RATE 10 ML/MIN (>89); GLUCOSE,RANDOM 196 MG/DL (74-106); SODIUM (NA) 133 MEQ/L (136-145); TOTAL BILIRUBIN ADULT 0.3 MG/DL (0.2-1.0); TOTAL PROTEIN 6.8 GM/DL (6.4-8.2)
[2017-08-18] MEDS: FUROSEMIDE 100 MG/10 ML VIAL IV PUSH SCH ×2 (08:15→20:39)
[2017-08-18] MEDS: FOLIC ACID 1 MG TAB PO SCH (08:16)
[2017-08-18] MEDS: FAMOTIDINE 20 MG TAB NG SCH ×2 (08:16→20:38)
[2017-08-18] MEDS: MULTIVITAMIN TAB PO SCH (08:16)
[2017-08-18] MEDS: GABAPENTIN 300 MG CAP PO SCH (08:16)
[2017-08-18] MEDS: FERROUS SULFATE 300 MG /5ML UDC PO SCH ×2 (08:16→20:37)
[2017-08-18] MEDS: ZINC SULFATE 220 MG CAP PO SCH (08:16)
[2017-08-18] MEDS: AMIODARONE 200 MG TAB PO SCH ×2 (08:16→20:38)
[2017-08-18] MEDS: ASCORBIC ACID 500 MG TAB PO SCH ×2 (08:16→20:38)
[2017-08-18] MEDS: NYSTATIN 100,000 U/GM PWD 15 GM BTL TOPICAL SCH ×2 (08:17→20:39)
[2017-08-18] MEDS: INSULIN DETEMIR 100 UNITS/ML VIAL SQ SCH ×2 (08:17→20:39)
[2017-08-18] MEDS: SODIUM CHLORIDE 0.9% FLUSH 10 ML FLUSH IV FLUSH SCH ×2 (08:17→20:39)
[2017-08-18] MEDS: COLLAGENASE OINT 30 GM TUBE TOPICAL SCH (08:17)
[2017-08-18] MEDS: levETIRAcetam 500 MG/5 ML UDC NG SCH ×2 (08:17→20:37)
[2017-08-18] MEDS: LACTULOSE SYRUP 20 GM/30 ML CUP PO SCH ×3 (08:18→17:38)
[2017-08-18] MEDS: DOCUSATE SODIUM 50 MG/SENNA 8.6 MG TAB PO SCH ×2 (08:18→20:38)
[2017-08-18] MEDS: ARTIFICIAL TEARS OPTH SOLN 15 ML BTL EACH EYE SCH ×3 (08:18→17:38)
--- NOTE | 2017-08-18 15:36 | HHI.CCPN ---
Subjective Remarks/Hospital Course 07/11: 77-year-old morbidly obese female patient sent in from group home, due to increased lethargy for the last 2 days, hypoglycemia early in the day with sugars of 44, given glucagon, chest x-ray showing a pneumonia according to facility staff, EMS noted the patient was fairly disoriented, GCS 6, and started bag valve masking her because of respiratory distress and hypoxia with sats in the 87% range despite oxygenation. Patient was brought in bag-valve- mask in progress and was immediately intubated in the emergency department by ED attending. 07/12: Sedated, orally intubated on mechanical ventilation. 07/13 Patient is sedated with Fentanyl and intubated. Afebrile. 07/14 No events overnight, Sedated with Fentanyl and Versed. Afebrile. Failed CPAP trials yesterday. 07/15 No events overnight. Sedated and intubated. ABG on CPAP yesterday showed resp acidosis with PH 7.22 and CO2: 58 07/16 Patient remains sedated and intubated 07/17. No events overnight. Remains sedated and intubated 07/18 Patient remains intubated off sedation. Afebrile. 07/19 Patient s/p extubation yesterday on BIPAP overnight. Awake. ABG last night showed resp acidosis with PH: 7.24, pCO2: 66 07/20 Patient was reintubated yesterday for resp failure. Sedated and intubated. Afebrile. 07/21: new HCAP with GNRs in sputum. persistent respiratory failure. likely will require long-term ventilation and slow wean. will consult general surgery for re-do trach and gastric access. 07/22: no changes. no improvements. gen surgery planning PEG/Trach next week. 07/23: sputum growing enterobacter; now on Cefepime per ID. neuro exam still stable, but fails weaning trials quickly. 07/24: no changes. still failing cpap and weaning trials. CT abd/pelvis done at gen surg request without overt abscess at prior peg site. 07/25: s/p trach today. doing well. still failing cpap. approved for LTAC. surgical contra-indication to PEG placement with induration at old PEG site: will use DHT for enteral access and tube feeds. ID giving final recs for duration of therapy. stable for discharge to LTAC when bed available. 07/26 No events overnight. Patient was rejected by [facility] this morning per case resolution specialist. Afebrile. 07/27 Patient is sedated with Diprivan and intubated. Afebrile. 07/28 No events overnight. Off sedation. On ventilator via trach. 07/29 No events overnight. Tolerated CPAP for most f day yesterday. Afebrile. 07/30: Remains on mechanical ventilation via tracheostomy. Drowsy/ encephalopathic 07/31: Remains encephalopathic, on mechanical ventilation via tracheostomy. Received 1 unit PRBCs yesterday. No melena or rectal bleeding noted. 08/01: Remains encephalopathic, on mechanical ventilation via tracheostomy. Daily C Pap trials ongoing. Neurologic status remains poor. 08/02: no improvements, no changes. does not meet inpatient criteria, but funding problems prevent appropriate placement. overall prognosis very poor. unlikely that she will survive this medical illness. 08/03: continues without significant changes or improvements. 08/04: Remains encephalopathic, on mechanical ventilation via tracheostomy. Potassium elevated. Ordered Kayexalate. 08/05: Remains encephalopathic, on mechanical ventilation via tracheostomy. Potassium levels coming down. 08/06: Remains encephalopathic on mechanical ventilation via tracheostomy. Tolerating tube feeds. Daily C Pap trials 08/07: Patient awake this a.m., following commands answering yes and no questions. The patient remain on CPAP yesterday for an extended period of time. Plan to begin trach collar trials this a.m.. Patient noted 1 g/dl drop in hemoglobin repeat hemoglobin pending. 08/08: Tmax 99.6. Hemoglobin stabilized. The patient was initiated on T piece trials yesterday morning and sustained T piece trials for greater than 12 hours yesterday. Patient placed back on PRN antianxiety meds Xanax, states she is anxious. T piece trials reinitiated this a.m. Of patient noted to have elevated glucose levels persistent. Levemir 5 units subcutaneous twice a day hemoglobin A1c pending. Creatinine noted to be worsening nephrology is following. Tolerating tube feeds. 08/09: Patient tolerated T piece trials for approximately 14 hours, before returning to CPAP. The patient continues on CPAP 03/10.35. The patient is notably lethargic this a.m., receiving Dilaudid 1 dose last evening, will continue to monitor. Frequency narcotic has been decreased. Creatinine continues to worsen, discussed with nephrology Dr. Elder patient is not a candidate for hemodialysis. Palliative care reconsulted for evaluation and defining goals of care. 08/10: Afebrile .Patient continues on CPAP, responsive. Creatinine continues to worsen, it is felt that the patient will not do well on hemodialysis given her multiple comorbidities. Discussion with palliative care team has been made patient DNR status today following adventism. 08/11: No acute events overnight. Creatinine continues to rise. is considering possibly Hospice, in the near future. Groin area erythematous and nystatin powder added to medication regimen. Eid maintained to prevent further skin breakdown and measure adequate urinary output. 08/12: Afebrile. No improvement in renal function. Nodding yes and no to questions, continues on CPAP. 08/13: No change in status, noted lethargy. Patient continues on CPAP responsive to questions nodding head. Hemodynamically stable. Palliative care following regarding defining goals of care. 08/14: Patient continues on CPAP. Extensive discussion with Mr. Henson today, he has requested a second opinion regarding possible hemodialysis. Dr. Garcia has been consulted, awaiting any new recommendations. Creatinine continues to rise. 08/15: Delayed entry note-no change in status, she continues on CPAP unable to do T piece trials tidal volume/respiratory volumes very low. Patient continues to be lethargic. Dr. Garcia following. Hemodynamically stable. 08/16: Afebrile .Nephrology following, Dr. Garcia, patient placed on diuretics Diamox and furosemide. Patient continues to be edematous, patient needs to be lethargic but arousable. 08/17: Patient lethargic. Hgb dropping, she was transfused 2 units of packed red blood cells. Patient was noted to have vaginal bleeding during bathing process today. PROGRAMMING DEVELOPMENT PROJECT MANAGER consulted. INR, fibrinogen level pending. No other active signs of bleeding. 08/18: Patient continues to be lethargic, creatinine continues to rise. Cessation of vaginal bleeding overnight. No intervention per PROGRAMMING DEVELOPMENT PROJECT MANAGER at this time. Serial hemoglobin stable. Discussion with Mr. Henson family to arrive tomorrow for discussion of possible Hospice. Patient required to be placed back on mechanical ventilation today, patient nonresponsive. Objective Vital Signs Date Time Temp Pulse Resp B/P (MAP) Pulse Ox O2 Delivery O2 Flow Rate FiO2 08/18/17 12:00 98 35 08/18/17 10:00 82 08/18/17 08:00 98.0 20 183/74 (110) Intake and Output 08/18/17 08/18/17 08/19/17 08:00 16:00 00:00 Intake Total 620 ml Output Total 150 ml Balance 470 ml Result Diagram: 08/18/17 0507 08/18/17 0507 Imaging Last Impressions Abdomen X-Ray 08/04/17 0000 Signed Impressions: Service Date/Time: Friday, August 04, 2017 22:47 - CONCLUSION: Benign-appearing abdomen. Dobbhoff feeding tube tip in the mid stomach. Charlie Norris MD Chest X-Ray 07/30/17 0000 Signed Impressions: Service Date/Time: Sunday, July 30, 2017 02:49 - CONCLUSION: Probable mild CHF. Aldair Ziegler MD Abdomen/Pelvis CT 07/24/17 0000 Signed Impressions: Service Date/Time: Monday, July 24, 2017 14:57 - CONCLUSION: Pleural effusion and atelectasis right greater than left. Bowel gas pattern is unremarkable. No evidence of an abscess. Some induration anterior abdominal wall with some possible early fluid collection inferiorly within the lower pannus. Jame Preciado MD Head CT 07/11/17 1827 Signed Impressions: Service Date/Time: Tuesday, July 11, 2017 21:23 - CONCLUSION: No acute intracranial abnormality Jaden Clark MD Last Impressions Abdomen X-Ray 07/25/17 0000 Signed Impressions: Service Date/Time: Tuesday, July 25, 2017 17:34 - CONCLUSION: Dobbhoff catheter tip in the distal stomach. Jasen Delvalle MD Abdomen/Pelvis CT 07/24/17 0000 Signed Impressions: Service Date/Time: Monday, July 24, 2017 14:57 - CONCLUSION: Pleural effusion and atelectasis right greater than left. Bowel gas pattern is unremarkable. No evidence of an abscess. Some induration anterior abdominal wall with some possible early fluid collection inferiorly within the lower pannus. Jame Preciado MD Chest X-Ray 07/21/17 0600 Signed Impressions: Service Date/Time: Friday, July 21, 2017 03:13 - CONCLUSION: Nasogastric tube now in place with the tip below the [id number] of the radiograph. No significant interval change in bilateral pulmonary opacity. Differential diagnosis includes pulmonary edema and infection. Angelito Lovett MD Head CT [id number]/11/[id number] Signed Impressions: Service Date/Time: Tuesday, July 11, 2017 21:23 - CONCLUSION: No acute intracranial abnormality Jaden Clark MD Objective Remarks GENERAL: Morbidly obese elderly female s/p trach, obtunded occasionally opens eyes spontaneously SKIN: Warm and dry. HEAD: Normocephalic. EYES: No scleral icterus. No injection or drainage. NECK: trachea midline. trach in place CARDIOVASCULAR: Regular rate and rhythm. RESPIRATORY: on mechanical ventilation via tracheostomy, air entry decreased bilaterally at bases, scattered rhonchi. GASTROINTESTINAL: Abdomen soft, obese non-tender, nondistended. MUSCULOSKELETAL: No cyanosis, or peripheral edema 2+. Neuro: Lethargic , on mechanical ventilation, unable to perform CPAP A/P Assessment and Plan Assessment: 77yF with morbid obesity and recurrent healthcare associated pneumonia and hypoxic respiratory failure. s/p trach 07/25. contra-indicated for PEG given recent peg site induration. will use DHT for long-term enteral nutrition. no placement plan at this time. Worsening renal failure , due to her complex medical condition , she will not do well on hemodialysis. Plan Neuro: metabolic encephalopathy Seizure disorder Neuropathy Anxiety disorder Off sedation. Monitor neuro status. On Keppra 500mg Q12 oxycodone 5mg po q4h prn for pain Xanax 0.25 every 6 hours when necessary, patient previously on Xanax 0.5 every 6 hours, continue to monitor. Patient obtunded secondary to uremia Pulm: Acute hypoxic and hypercarbic Respiratory failure Recurrent healthcare associated pneumonia Reintubated 07/19 Continue with vent support keep sat >92% Bronchodilators, ICU vent bundle. SBT daily as lisa s/p trach 07/[address] Srinivas Kennedy [facility], [facility]. Continue CPAP trials and attempt trach collar trials Trach collar trials initiated 08/07/17, unable to continue secondary to patient's lethargy 08/18 CPAP trials discontinued patient nonresponsive requiring mechanical ventilation CV: History of hypertension Monitor HR and BP keep MAP>65mmHg Amiodarone 200mg BID 2d echo 07/20: normal biventricular function, EF 60%, RVSP 47 mmHg. : Acute renal failure Free water deficit Vaginal bleeding-resolved Monitor renal function, electrolytes replacement as needed. Nephrology consulted in view of rising BUN creatinine. Per nephrology patient will not do well on hemodialysis 2/2 her complex medical condition 08/14 second opinion from nephrology requested- Dr Gracia, follow-up recommendations 08/17 PROGRAMMING DEVELOPMENT PROJECT MANAGER consulted-no intervention at this time regarding vaginal bleeding. Resolution of vaginal bleeding GI: Morbid Obesity Acute protein calorie malnutrition- moderate On tube feeds- Nepro with goal rate 65ml/hr, On roly Colace, Lactulose for bowel regimen. On Reglan 5mg IV Q8 PRN ICU electrolyte protocol and discontinued ID: Recurrent HCAP pneumonia- resolved. Urinary tract infection- resolved. off abx. monitor clinically.. Urine cx: 07/11: Kleb ESBL, Citrobacter. Repeat urine cx 07/18 - Kirsten Albicans sputum cx: Enterobacter ID following. Continue Nystatin powder to groin areas Heme: Anemia secondary to chronic disease Acute blood loss/vaginal bleeding-resolved Monitor CBC, on Ferrous sulfate and Folic acid Hep PLT ab -negative 1 unit PRBCs ordered on 07/30 for hemoglobin 7.2, no evidence of melena or rectal bleeding. Hemoglobin 6.8 patient transfused 2 units packed red blood cells, follow-up post transfusion CBC Endo: Hypothyroidism Hyperglycemia of Critical illness SSI medium scale for glycemic control Levothyroxine 25 mcgs/d hemoglobin A1c- 5.3 08/08 Levemir increased 10 units SQ BID GI prophylaxis- on Pepcid DVT prophylaxis- Heparin SQ Dispo: Awaiting placement. Patient was rejected by [facility] for not enough medicare days left. will look into vent-capable SNF facilities. does not meet inpatient criteria. 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 Patient renal function continues to worsen, patient will not do well on hemodialysis. 08/14 second opinion from Nephrology has been requested Palliative Care has been consulted and patient was made CODE STATUS DNR on08/11 Level 2 follow up Discussed with ANTENNA SPECIALIST at bedside (Margret) Physician Gianna Jeff MD Aug 18, 2017 15:36
[2017-08-18 17:30] LABS: HEMATOCRIT 24.4 % (35.0-46.0)
[2017-08-18] MEDS: AMITRIPTYLINE HCL 10 MG TAB PO SCH (20:38)
[2017-08-19] VITALS (20 sets, daily range): BP systolic 104–122; BP diastolic 48–60; PULSE 52–70; RESP 18; TEMP 97.4–98.5; O2SAT 100
[2017-08-19] MEDS: CHLORHEXIDINE GLUCONATE 2 % 1 PACK (2 CLOTHS) TOP SCH (03:34)
--- NOTE | 2017-08-19 04:46 | RADRPT ---
EXAM DATE/TIME: 08/19/2017 03:23 [facility] COMPARISON: CHEST SINGLE AP, August 15, 2017, 3:11. INDICATIONS : Shortness of breath, possible pulmonary disease. MEDICAL HISTORY : Hypertension. Diabetes mellitus type II. SURGICAL HISTORY : Cholecystectomy. Appendectomy. ENCOUNTER: Subsequent ACUITY: 1 month PAIN SCORE: Non-responsive. LOCATION: Bilateral chest FINDINGS: There is no change in the patchy diffuse infiltrate throughout the right lung. The left lung remains grossly clear. Heart size is stable. There is no pneumothorax. There is a feeding tube in the stomach . CONCLUSION: No significant interval change. Florentin Frank MD on August 19, 2017 at 4:42 Board Certified Radiologist. This report was verified electronically.
[2017-08-19] MEDS: LEVOTHYROXINE SODIUM 25 MCG TAB PO SCH (05:40)
[2017-08-19] MEDS: HEPARIN SODIUM - SQ 10,000 UNITS/ML VIAL SQ SCH ×3 (05:40→21:17)
[2017-08-19] MEDS: INSULIN NovoLIN REGULAR SUPPLEMENTAL SCALE SQ SCH ×4 (05:41→17:20)
[2017-08-19 06:04] LABS: HEMATOCRIT 26.2 % (35.0-46.0); HEMOGLOBIN 8.6 GM/DL (11.6-15.3); MEAN CELL VOLUME 93.9 FL (80.0-100.0); MEAN CORPUSCULAR HEMOGLOBIN 30.7 PG (27.0-34.0); MEAN CORPUSCULAR HGB CONC 32.7 % (32.0-36.0); MEAN PLATELET VOLUME 9.8 FL (7.0-11.0); PLATELET COUNT 115 TH/MM3 (150-450); RED BLOOD COUNT 2.78 MIL/MM3 (4.00-5.30); RED CELL DISTRIBUTION WIDTH 19.8 % (11.6-17.2); WHITE BLOOD COUNT 6.5 TH/MM3 (4.0-11.0)
[2017-08-19 06:18] LABS: BICARBONATE 26.7 MEQ/L (21.0-32.0); CALCIUM 8.6 MG/DL (8.5-10.1); CREATININE 4.51 MG/DL (0.50-1.00); MAGNESIUM 4.3 MG/DL (1.5-2.5); PHOSPHORUS 5.8 MG/DL (2.5-4.9)
[2017-08-19] MEDS: AMIODARONE 200 MG TAB PO SCH ×2 (09:00→21:00)
[2017-08-19] MEDS: levETIRAcetam 500 MG/5 ML UDC NG SCH ×2 (09:44→21:17)
[2017-08-19] MEDS: FUROSEMIDE 100 MG/10 ML VIAL IV PUSH SCH ×2 (09:45→17:00)
[2017-08-19] MEDS: NYSTATIN 100,000 U/GM PWD 15 GM BTL TOPICAL SCH ×2 (09:49→21:19)
[2017-08-19] MEDS: SODIUM CHLORIDE 0.9% FLUSH 10 ML FLUSH IV FLUSH SCH ×2 (09:49→21:17)
[2017-08-19] MEDS: FAMOTIDINE 20 MG TAB NG SCH ×2 (09:50→21:17)
[2017-08-19] MEDS: GABAPENTIN 300 MG CAP PO SCH (09:50)
[2017-08-19] MEDS: LACTULOSE SYRUP 20 GM/30 ML CUP PO SCH ×3 (09:50→17:20)
[2017-08-19] MEDS: MULTIVITAMIN TAB PO SCH (09:50)
[2017-08-19] MEDS: FOLIC ACID 1 MG TAB PO SCH (09:50)
[2017-08-19] MEDS: ASCORBIC ACID 500 MG TAB PO SCH ×2 (09:50→21:17)
[2017-08-19] MEDS: DOCUSATE SODIUM 50 MG/SENNA 8.6 MG TAB PO SCH ×2 (09:50→21:16)
[2017-08-19] MEDS: ZINC SULFATE 220 MG CAP PO SCH (09:50)
[2017-08-19] MEDS: FERROUS SULFATE 300 MG /5ML UDC PO SCH ×2 (09:50→21:16)
[2017-08-19] MEDS: COLLAGENASE OINT 30 GM TUBE TOPICAL SCH (09:51)
[2017-08-19] MEDS: ARTIFICIAL TEARS OPTH SOLN 15 ML BTL EACH EYE SCH ×3 (09:52→17:20)
[2017-08-19] MEDS: INSULIN DETEMIR 100 UNITS/ML VIAL SQ SCH ×2 (09:52→21:00)
--- NOTE | 2017-08-19 14:14 | HHI.CCPN ---
Subjective Remarks/Hospital Course 07/11: 77-year-old morbidly obese female patient sent in from half-way, due to increased lethargy for the last 2 days, hypoglycemia early in the day with sugars of 44, given glucagon, chest x-ray showing a pneumonia according to facility staff, EMS noted the patient was fairly disoriented, GCS 6, and started bag valve masking her because of respiratory distress and hypoxia with sats in the 87% range despite oxygenation. Patient was brought in bag-valve- mask in progress and was immediately intubated in the emergency department by ED attending. 07/12: Sedated, orally intubated on mechanical ventilation. 07/13 Patient is sedated with Fentanyl and intubated. Afebrile. 07/14 No events overnight, Sedated with Fentanyl and Versed. Afebrile. Failed CPAP trials yesterday. 07/15 No events overnight. Sedated and intubated. ABG on CPAP yesterday showed resp acidosis with PH 7.22 and CO2: 58 07/16 Patient remains sedated and intubated 07/17. No events overnight. Remains sedated and intubated 07/18 Patient remains intubated off sedation. Afebrile. 07/19 Patient s/p extubation yesterday on BIPAP overnight. Awake. ABG last night showed resp acidosis with PH: 7.24, pCO2: 66 07/20 Patient was reintubated yesterday for resp failure. Sedated and intubated. Afebrile. 07/21: new HCAP with GNRs in sputum. persistent respiratory failure. likely will require long-term ventilation and slow wean. will consult general surgery for re-do trach and gastric access. 07/22: no changes. no improvements. gen surgery planning PEG/Trach next week. 07/23: sputum growing enterobacter; now on Cefepime per ID. neuro exam still stable, but fails weaning trials quickly. 07/24: no changes. still failing cpap and weaning trials. CT abd/pelvis done at gen surg request without overt abscess at prior peg site. 07/25: s/p trach today. doing well. still failing cpap. approved for LTAC. surgical contra-indication to PEG placement with induration at old PEG site: will use DHT for enteral access and tube feeds. ID giving final recs for duration of therapy. stable for discharge to LTAC when bed available. 07/26 No events overnight. Patient was rejected by [facility] this morning per director case. Afebrile. 07/27 Patient is sedated with Diprivan and intubated. Afebrile. 07/28 No events overnight. Off sedation. On ventilator via trach. 07/29 No events overnight. Tolerated CPAP for most f day yesterday. Afebrile. 07/30: Remains on mechanical ventilation via tracheostomy. Drowsy/ encephalopathic 07/31: Remains encephalopathic, on mechanical ventilation via tracheostomy. Received 1 unit PRBCs yesterday. No melena or rectal bleeding noted. 08/01: Remains encephalopathic, on mechanical ventilation via tracheostomy. Daily C Pap trials ongoing. Neurologic status remains poor. 08/02: no improvements, no changes. does not meet inpatient criteria, but funding problems prevent appropriate placement. overall prognosis very poor. unlikely that she will survive this medical illness. 08/03: continues without significant changes or improvements. 08/04: Remains encephalopathic, on mechanical ventilation via tracheostomy. Potassium elevated. Ordered Kayexalate. 08/05: Remains encephalopathic, on mechanical ventilation via tracheostomy. Potassium levels coming down. 08/06: Remains encephalopathic on mechanical ventilation via tracheostomy. Tolerating tube feeds. Daily C Pap trials 08/07: Patient awake this a.m., following commands answering yes and no questions. The patient remain on CPAP yesterday for an extended period of time. Plan to begin trach collar trials this a.m.. Patient noted 1 g/dl drop in hemoglobin repeat hemoglobin pending. 08/08: Tmax 99.6. Hemoglobin stabilized. The patient was initiated on T piece trials yesterday morning and sustained T piece trials for greater than 12 hours yesterday. Patient placed back on PRN antianxiety meds Xanax, states she is anxious. T piece trials reinitiated this a.m. Of patient noted to have elevated glucose levels persistent. Levemir 5 units subcutaneous twice a day hemoglobin A1c pending. Creatinine noted to be worsening nephrology is following. Tolerating tube feeds. 08/09: Patient tolerated T piece trials for approximately 14 hours, before returning to CPAP. The patient continues on CPAP 03/10.35. The patient is notably lethargic this a.m., receiving Dilaudid 1 dose last evening, will continue to monitor. Frequency narcotic has been decreased. Creatinine continues to worsen, discussed with nephrology Dr. Elder patient is not a candidate for hemodialysis. Palliative care reconsulted for evaluation and defining goals of care. 08/10: Afebrile .Patient continues on CPAP, responsive. Creatinine continues to worsen, it is felt that the patient will not do well on hemodialysis given her multiple comorbidities. Discussion with palliative care team has been made patient DNR status today following denominational. 08/11: No acute events overnight. Creatinine continues to rise. is considering possibly Hospice, in the near future. Groin area erythematous and nystatin powder added to medication regimen. Eid maintained to prevent further skin breakdown and measure adequate urinary output. 08/12: Afebrile. No improvement in renal function. Nodding yes and no to questions, continues on CPAP. 08/13: No change in status, noted lethargy. Patient continues on CPAP responsive to questions nodding head. Hemodynamically stable. Palliative care following regarding defining goals of care. 08/14: Patient continues on CPAP. Extensive discussion with Mr. Henson today, he has requested a second opinion regarding possible hemodialysis. Dr. Garcia has been consulted, awaiting any new recommendations. Creatinine continues to rise. 08/15: Delayed entry note-no change in status, she continues on CPAP unable to do T piece trials tidal volume/respiratory volumes very low. Patient continues to be lethargic. Dr. Garcia following. Hemodynamically stable. 08/16: Afebrile .Nephrology following, Dr. Garcia, patient placed on diuretics Diamox and furosemide. Patient continues to be edematous, patient needs to be lethargic but arousable. 08/17: Patient lethargic. Hgb dropping, she was transfused 2 units of packed red blood cells. Patient was noted to have vaginal bleeding during bathing process today. FAST FOOD SERVER consulted. INR, fibrinogen level pending. No other active signs of bleeding. 08/18: Patient continues to be lethargic, creatinine continues to rise. Cessation of vaginal bleeding overnight. No intervention per FAST FOOD SERVER at this time. Serial hemoglobin stable. Discussion with Mr. Henson family to arrive tomorrow for discussion of possible Hospice. Patient required to be placed back on mechanical ventilation today, patient nonresponsive. 08/19: no changes or improvements. BUN continues to rise. poor uop despite aggressive forced diuresis. again expressed to the her poor prognosis. she is unlikely to survive this hospitalization. Objective Vital Signs Date Time Temp Pulse Resp B/P (MAP) Pulse Ox O2 Delivery O2 Flow Rate FiO2 08/19/17 11:43 100 35 08/19/17 06:00 65 08/19/17 04:00 97.7 110/56 (74) 08/19/17 00:00 18 08/18/17 20:35 Ventilator Intake and Output 08/19/17 08/19/17 08/20/17 08:00 16:00 00:00 Intake Total 884 ml Output Total 100 ml Balance 784 ml Result Diagram: 08/19/17 0500 08/19/17 0500 Imaging Last Impressions Abdomen X-Ray 08/04/17 0000 Signed Impressions: Service Date/Time: Friday, August 04, 2017 22:47 - CONCLUSION: Benign-appearing abdomen. Dobbhoff feeding tube tip in the mid stomach. Charlie Norris MD Chest X-Ray 07/30/17 0000 Signed Impressions: Service Date/Time: Sunday, July 30, 2017 02:49 - CONCLUSION: Probable mild CHF. Aldair Ziegler MD Abdomen/Pelvis CT 07/24/17 0000 Signed Impressions: Service Date/Time: Monday, July 24, 2017 14:57 - CONCLUSION: Pleural effusion and atelectasis right greater than left. Bowel gas pattern is unremarkable. No evidence of an abscess. Some induration anterior abdominal wall with some possible early fluid collection inferiorly within the lower pannus. Jame Preciado MD Head CT 07/11/17 1827 Signed Impressions: Service Date/Time: Tuesday, July 11, 2017 21:23 - CONCLUSION: No acute intracranial abnormality Jaden Clark MD Last Impressions Abdomen X-Ray 07/25/17 0000 Signed Impressions: Service Date/Time: Tuesday, July 25, 2017 17:34 - CONCLUSION: Dobbhoff catheter tip in the distal stomach. Jasen Delvalle MD Abdomen/Pelvis CT 07/24/17 0000 Signed Impressions: Service Date/Time: Monday, July 24, 2017 14:57 - CONCLUSION: Pleural effusion and atelectasis right greater than left. Bowel gas pattern is unremarkable. No evidence of an abscess. Some induration anterior abdominal wall with some possible early fluid collection inferiorly within the lower pannus. Jame Preciado MD Chest X-Ray 07/21/17 0600 Signed Impressions: Service Date/Time: Friday, July 21, 2017 03:13 - CONCLUSION: Nasogastric tube now in place with the tip below the [id number] of the radiograph. No significant interval change in bilateral pulmonary opacity. Differential diagnosis includes pulmonary edema and infection. Angelito Lovett MD Head CT 07/11/17 1827 Signed Impressions: Service Date/Time: Tuesday, July 11, 2017 21:23 - CONCLUSION: No acute intracranial abnormality Jaden Clark MD Objective Remarks GENERAL: Morbidly obese elderly female s/p trach, obtunded occasionally opens eyes spontaneously SKIN: Warm and dry. HEAD: Normocephalic. EYES: No scleral icterus. No injection or drainage. NECK: trachea midline. trach in place CARDIOVASCULAR: Regular rate and rhythm. RESPIRATORY: on mechanical ventilation via tracheostomy. unlabored. equal chest rise. GASTROINTESTINAL: Abdomen soft, obese non-tender, nondistended. MUSCULOSKELETAL: No cyanosis, or peripheral edema 2+. Neuro: Lethargic , on mechanical ventilation, unable to perform CPAP. RASS -4. A/P Assessment and Plan Assessment: 77yF with morbid obesity and recurrent healthcare associated pneumonia and hypoxic respiratory failure. s/p trach 07/25. Worsening renal failure , due to her complex medical condition , she will not do well on hemodialysis. very poor prognosis. unlikely to survive. appreciate palliative care involvement. Plan Neuro: metabolic encephalopathy Seizure disorder Neuropathy Anxiety disorder Off sedation. Monitor neuro status. On Keppra 500mg Q12 oxycodone 5mg po q4h prn for pain Patient obtunded secondary to uremia Pulm: Chronic hypoxic and hypercarbic Respiratory failure - persistent and now chronic. Recurrent healthcare associated pneumonia- resolved. Reintubated 07/19 Continue with vent support keep sat >92% Bronchodilators, ICU vent bundle. SBT daily as lisa s/p trach 07/[address] Srinivas arias, [facility]. Continue CPAP trials and attempt trach collar trials Trach collar trials initiated 08/07/17, unable to continue secondary to patient's lethargy 08/18 CPAP trials discontinued patient nonresponsive requiring mechanical ventilation CV: History of hypertension Monitor HR and BP keep MAP>65mmHg Amiodarone 200mg BID 2d echo 07/20: normal biventricular function, EF 60%, RVSP 47 mmHg. : Acute renal failure - worsening, persistent. Vaginal bleeding-resolved Monitor renal function, electrolytes replacement as needed. Nephrology consulted in view of rising BUN creatinine. Per nephrology patient will not do well on hemodialysis / her complex medical condition 08/14 second opinion from nephrology requested- Dr Garcia, again confirmed poor candidate for hemodialysis and would not do well given complex medical condition. 08/17 FAST FOOD SERVER consulted-no intervention at this time regarding vaginal bleeding. Resolution of vaginal bleeding GI: Morbid Obesity Acute protein calorie malnutrition- severe On tube feeds- Nepro with goal rate 65ml/hr, On roly Colace, Lactulose for bowel regimen. d/c reglan. ICU electrolyte protocol and discontinued ID: Recurrent HCAP pneumonia- resolved. Urinary tract infection- resolved. off abx. monitor clinically.. Urine cx: 07/11: Kleb ESBL, Citrobacter. Repeat urine cx 07/18 - Kirsten Albicans sputum cx: Enterobacter ID following. Continue Nystatin powder to groin areas Heme: Anemia secondary to chronic disease Acute blood loss/vaginal bleeding-resolved Monitor CBC, on Ferrous sulfate and Folic acid Hep PLT ab -negative 1 unit PRBCs ordered on 07/30 for hemoglobin 7.2, no evidence of melena or rectal bleeding. hgb stable. Endo: Hypothyroidism Hyperglycemia of Critical illness SSI medium scale for glycemic control Levothyroxine 25 mcgs/d hemoglobin A1c- 5.3 08/08 Levemir increased 10 units SQ BID GI prophylaxis- on Pepcid DVT prophylaxis- Heparin SQ Dispo: Awaiting placement. Patient was rejected by [facility] for not enough medicare days left. will look into vent-capable SNF facilities. does not meet inpatient criteria. consulted palliative care to assist with deciding goals of therapy as fpc prognosis appears poor. Patient renal function continues to worsen, patient will not do well on hemodialysis. Palliative Care has been consulted and patient was made CODE STATUS DNR on08/11 discussed with at bedside. family arriving this week. will need to seriously consider transitioning to comfort measures. Rafael Wilson MD Aug 19, 2017 14:14
[2017-08-19 15:27] LABS: HEMATOCRIT 27.7 % (35.0-46.0)
[2017-08-20] VITALS (20 sets, daily range): BP systolic 107–173; BP diastolic 55–74; PULSE 56–78; RESP 15; TEMP 97.5–98.8; O2SAT 99–100
[2017-08-20] MEDS: FUROSEMIDE 100 MG/10 ML VIAL IV PUSH SCH ×3 (00:02→17:19)
[2017-08-20] MEDS: CHLORHEXIDINE GLUCONATE 2 % 1 PACK (2 CLOTHS) TOP SCH (04:00)
[2017-08-20] MEDS: RESP: ALBUTEROL 2.5 MG/IPRATROPIUM 0.5 MG NEB (PRN) NEB (04:02)
[2017-08-20 04:25] LABS: HEMATOCRIT 30.2 % (35.0-46.0); HEMOGLOBIN 9.7 GM/DL (11.6-15.3)
[2017-08-20] MEDS: LEVOTHYROXINE SODIUM 25 MCG TAB PO SCH (05:18)
[2017-08-20] MEDS: INSULIN NovoLIN REGULAR SUPPLEMENTAL SCALE SQ SCH ×4 (05:18→17:19)
[2017-08-20] MEDS: HEPARIN SODIUM - SQ 10,000 UNITS/ML VIAL SQ SCH ×3 (05:18→21:34)
[2017-08-20] MEDS: levETIRAcetam 500 MG/5 ML UDC NG SCH ×2 (08:00→21:33)
[2017-08-20] MEDS: FOLIC ACID 1 MG TAB PO SCH (08:00)
[2017-08-20] MEDS: FERROUS SULFATE 300 MG /5ML UDC PO SCH ×2 (08:00→21:34)
[2017-08-20] MEDS: LACTULOSE SYRUP 20 GM/30 ML CUP PO SCH ×3 (08:00→17:18)
[2017-08-20] MEDS: ZINC SULFATE 220 MG CAP PO SCH (08:00)
[2017-08-20] MEDS: GABAPENTIN 300 MG CAP PO SCH (08:00)
[2017-08-20] MEDS: MULTIVITAMIN TAB PO SCH (08:00)
[2017-08-20] MEDS: INSULIN DETEMIR 100 UNITS/ML VIAL SQ SCH ×2 (08:00→21:34)
[2017-08-20] MEDS: FAMOTIDINE 20 MG TAB NG SCH ×2 (08:01→21:33)
[2017-08-20] MEDS: SODIUM CHLORIDE 0.9% FLUSH 10 ML FLUSH IV FLUSH SCH ×2 (08:01→21:33)
[2017-08-20] MEDS: AMIODARONE 200 MG TAB PO SCH ×2 (08:01→21:34)
[2017-08-20] MEDS: ASCORBIC ACID 500 MG TAB PO SCH ×2 (08:01→21:34)
[2017-08-20] MEDS: DOCUSATE SODIUM 50 MG/SENNA 8.6 MG TAB PO SCH ×2 (08:02→21:34)
[2017-08-20] MEDS: NYSTATIN 100,000 U/GM PWD 15 GM BTL TOPICAL SCH ×2 (08:02→21:35)
[2017-08-20] MEDS: ARTIFICIAL TEARS OPTH SOLN 15 ML BTL EACH EYE SCH ×3 (08:02→17:19)
[2017-08-20] MEDS: COLLAGENASE OINT 30 GM TUBE TOPICAL SCH (08:02)
--- NOTE | 2017-08-20 13:05 | HHI.HCSW ---
[place] H[employer] Helper Visit Significant Family/Friend Attempting to set up family meeting with , palliative care, and contract analyst. Unable to reach , left message requesting call back. Awaiting return call. Palliative care will continue to follow throughout hospitalization. Maria Elena Caldwell, [employer] PRODUCTION MANAGER Aug 20, 2017 13:05
--- NOTE | 2017-08-20 13:47 | HHI.NPPN ---
Subjective General Problems: Anemia, Edema Renal Failure: Acute History of Present Illness 77-year-old with multiple medical problems acute renal failure and chronic kidney disease, morbid obesity, CHF, pneumonia, respiratory failure status post trach, Now with worsening acute renal failure Review of Systems General General Remarks generalized pain Objective Data Data Vital Signs Date Time Temp Pulse Resp B/P (MAP) Pulse Ox O2 Delivery O2 Flow Rate FiO2 08/20/17 12:30 100 35 08/20/17 12:00 97.5 61 120/55 (76) 99 08/20/17 12:00 61 08/20/17 12:00 35 08/20/17 10:00 69 08/20/17 08:50 35 08/20/17 08:46 100 35 08/20/17 08:00 97.9 64 143/65 (91) 100 08/20/17 08:00 35 08/20/17 08:00 64 08/20/17 06:00 58 08/20/17 04:05 100 35 08/20/17 04:00 35 08/20/17 04:00 97.8 78 173/74 (107) 99 08/20/17 04:00 78 08/20/17 02:00 56 08/20/17 01:12 100 35 08/20/17 00:00 97.6 73 140/61 (87) 100 08/20/17 00:00 73 08/20/17 00:00 35 08/19/17 22:12 100 35 08/19/17 22:00 70 08/19/17 20:00 54 08/19/17 20:00 97.8 54 18 111/48 (69) 100 08/19/17 20:00 35 08/19/17 19:50 100 35 08/19/17 18:00 68 08/19/17 16:00 98.0 68 18 118/56 (76) 100 08/19/17 16:00 35 08/19/17 16:00 68 08/19/17 15:58 100 35 08/19/17 14:00 67 -: 08/20/17 0410 08/19/17 0500 Tubes & Lines: Eid Tubes & Lines Comment ivelisse tijerina Physical Exam General Appearance: Obese, Malnourished Eyes Eye Exam: Pupils Equal Throat Throat Exam: Oral Mucosa [place] & Moist Neck Neck Exam: Neck Supple Pulmonary Resp Exam: Diminished Breath Sounds Cardiology CV Exam: Regular, Normal Sinus Rhythm Gastrointestinal/Abdomen GI Exam: Soft, Non-Tender, Bowel Sounds Present Musculoskeletal MS Exam: Unable to Ambulate Integumentary Skin Exam: Warm, Dry Extremeties Extremities Exam: Pedal Pulses Palpable, Moderate Edema, Pitting Edema, Dependent Edema Neurologic Neuro Exam: Moving All Extremities, Obtunded VTE Prophylaxis Device: SCDs Assessment/Plan Discussed Condition With: Spouse Assessment Summary: RADHA/Acute Renal Failure, Fluid/Volume Overload, Hypertension Problem List: (1) Acute kidney insufficiency ICD Codes: N28.9 - Disorder of kidney and ureter, unspecified Plan: RADHA with prolonged hospitalization and multiple comorbidities She does have component of congestive heart failure, pulmonary artery pressures are increased also she has peripheral swelling mainly and is suffering from right sided heart failure She has peripheral edema Skin breakdown Azotemia worsening Family not ready for hospice trying Diamox and Lasix 80 mg IV every 8 hours as UOP 175 ml Discussed with granddaughter Renal functions are worse edema worsening Prognosis poor I have discussed dialysis earlier with last week and she is critically ill and that long-term prognosis is very poor and she will remain bedbound When considering comorbid condition has decided not to do dialysis Awaiting hospice to take over (2) Hyperkalemia ICD Codes: E87.5 - Hyperkalemia Plan: Improved. Continue to monitor. (3) Acute respiratory failure with hypoxia and hypercarbia ICD Codes: J96.01 - Acute respiratory failure with hypoxia; J96.02 - Acute respiratory failure with hypercapnia Plan: On CPAP, trach. (4) Hypertension ICD Codes: I10 - Essential (primary) hypertension Plan: Hypotensive ; hold antihypertensives if SBP < 100mmHg (5) Encephalopathy ICD Codes: G93.40 - Encephalopathy, unspecified Plan: Prognosis appears to be poor. Plan patient was seen and examined. Because of multiple comorbidities, I had suggested to the that she will not do well on dialysis, and had recommended palliative care, hospice. "she is not a candidate for dialysis" is not accurate description of my opinion and recommendation to the patient . If the insists on proceeding with dialysis, I would not refuse to offer that service. I have read the notes. Palliative care had brought up the topic of hospice. The now wants a second opinion as he thinks that "her kidneys were never treated". I will see her only if necessary, I will sign off at this time. Gail Garcia MD Aug 20, 2017 13:47
--- NOTE | 2017-08-20 16:30 | HHI.HCPN ---
Reason for visit a. To assist with evaluation and management of symptoms including: Debility , dyspnea, encephalopathy, pain b. To assist medical decision maker(s) with: better understanding of current medical conditions; weighing benefits/burdens of medical treatment options; making medical treatment decisions. . Subjective/Interval History Follow up visit for symptom management and clarification of medical treatment goals. Mrs. Henson is a 76-year-old female with morbid obesity, recurrent HCAP and hypoxic respiratory failure status post tracheostomy on 08/01/2017, currently tolerating CPAP. Worsening kidney functioning. BUN: 22, creatinine 3.56, GFR 12 Patient's family had requested a second opinion regarding possible hemodialysis. Dr. Garcia evaluated the patient on 08/14/2017; he stated the patient would likely not do well on dialysis and it would likely NOT change the patient's outcome secondary to the patient's comorbid conditions and poor functional status. In speaking with Dr. Wilson, buttonholer, patient is not expected to survive this hospitalization. Patient seen and examined in ICU. Spouse (Reji) and 2 granddaughters (Lisa and Aniya) at bedside. Patient does not respond to voice or exam. Family reports she opens eyes intermittently, though does not "connect" with them. She does not attempt to communicate or follow commands. Patient shows no signs or symptoms of nonverbal pain on exam. Nursing pain scales "0". On CPAP. Vital signs stable. Renal function continues to worsen, creatinine 4.51 with decreasing urine output. Unable to place PEG tube; patient tolerating artificial nutrition via Dobbhoff. . Family/friend interactions Met with spouse and 2 granddaughters at bedside, medical update provided. Family understands renal function continues to worsen and that dialysis will not improve patient outcome. Spouse verbalizes her ongoing decline. He tells me the family has been talking about hospice. He indicates son will be arriving from [place] in AM and that family will likely proceed with withdrawal of life support then. Provided my cell number so we can meet after son arrives to discuss withdrawal of life support, he agrees and verbalizes appreciation. . Advance Directives Advance Directive Specifics Documented care wishes: No known document wishes have been completed. . Significant change in goals: NO CODE. Plan for family meeting after son arrives on 08/21/17 (AM) and likely withdrawal of life support with hospice support. . Objective Vital Signs Date Time Temp Pulse Resp B/P (MAP) Pulse Ox O2 Delivery O2 Flow Rate FiO2 08/20/17 16:01 100 35 08/20/17 16:00 98.1 63 15 131/63 (85) 100 08/20/17 16:00 35 08/20/17 16:00 63 08/20/17 14:00 61 08/20/17 12:30 100 35 08/20/17 12:00 97.5 61 120/55 (76) 99 08/20/17 12:00 61 08/20/17 12:00 35 08/20/17 10:00 69 08/20/17 08:50 35 08/20/17 08:46 100 35 08/20/17 08:00 97.9 64 143/65 (91) 100 08/20/17 08:00 35 08/20/17 08:00 64 08/20/17 06:00 58 08/20/17 04:05 100 35 08/20/17 04:00 35 08/20/17 04:00 97.8 78 173/74 (107) 99 08/20/17 04:00 78 08/20/17 02:00 56 08/20/17 01:12 100 35 08/20/17 00:00 97.6 73 140/61 (87) 100 08/20/17 00:00 73 08/20/17 00:00 35 08/19/17 22:12 100 35 08/19/17 22:00 70 08/19/17 20:00 54 08/19/17 20:00 97.8 54 18 111/48 (69) 100 08/19/17 20:00 35 08/19/17 19:50 100 35 08/19/17 18:00 68 Intake & Output 08/20/17 08/20/17 06:59 18:59 Intake Total 886 ml Output Total 75 ml Balance 811 ml Tube Feeding 706 ml Tube Irrigant 180 ml Output Urine Total 75 ml # Bowel Movements 1 Physical Exam CONSTITUTIONAL/GENERAL: This is a morbidly obese, on CPAP to trach. TUBES/LINES/DRAINS: Tracheostomy, Dobbhoff, catheter, PIV, wrist restraints, podus boots. SKIN: Generalized pallor. Ecchymosis on bilateral upper extremities. Wounds on upper extremities bilaterally EYES: No scleral icterus. No injection or drainage. NECK: Tracheostomy to CPAP CARDIOVASCULAR: Distant heart sounds. Regular rate and rhythm without murmurs, gallops, or rubs. Upper extremities edematous bilaterally RESPIRATORY/CHEST: Breath sounds diminished throughout GASTROINTESTINAL: Protuberant abdomen with non-healing ulcer area from prior PEG site. GENITOURINARY: Without palpable bladder distension. Catheter in place, minimal UOP. MUSCULOSKELETAL: Extremities with generalized edema. NEUROLOGICAL: Does not open eyes to voice or exam. no tracking when eyes open, does not attempt to communicate and does not follow commands. PSYCHIATRIC: Unable to assess due to patient's clinical condition. . Diagnostic Tests Laboratory Laboratory Tests Test 08/17/17 23:40 08/18/17 05:07 08/18/17 17:12 08/19/17 05:00 Hemoglobin 8.3 GM/DL (11.6-15.3) 8.6 GM/DL (11.6-15.3) 8.0 GM/DL (11.6-15.3) 8.6 GM/DL (11.6-15.3) Hematocrit 25.6 % (35.0-46.0) 26.8 % (35.0-46.0) 24.4 % (35.0-46.0) 26.2 % (35.0-46.0) White Blood Count 8.0 TH/MM3 (4.0-11.0) 6.5 TH/MM3 (4.0-11.0) Red Blood Count 2.86 MIL/MM3 (4.00-5.30) 2.78 MIL/MM3 (4.00-5.30) Mean Corpuscular Volume 93.7 FL (80.0-100.0) 93.9 FL (80.0-100.0) Mean Corpuscular Hemoglobin 30.2 PG (27.0-34.0) 30.7 PG (27.0-34.0) Mean Corpuscular Hemoglobin Concent 32.2 % (32.0-36.0) 32.7 % (32.0-36.0) Red Cell Distribution Width 20.5 % (11.6-17.2) 19.8 % (11.6-17.2) Platelet Count 118 TH/MM3 (150-450) 115 TH/MM3 (150-450) Mean Platelet Volume 9.6 FL (7.0-11.0) 9.8 FL (7.0-11.0) Prothrombin Time 10.0 SEC (9.8-11.6) Prothromb Time International Ratio 1.0 RATIO Blood Urea Nitrogen 150 MG/DL (7-18) 150 MG/DL (7-18) Creatinine 4.24 MG/DL (0.50-1.00) 4.51 MG/DL (0.50-1.00) Random Glucose 196 MG/DL (74-106) 182 MG/DL (74-106) Total Protein 6.8 GM/DL (6.4-8.2) Albumin 2.2 GM/DL (3.4-5.0) Calcium Level 8.9 MG/DL (8.5-10.1) 8.6 MG/DL (8.5-10.1) Alkaline Phosphatase 403 U/L (45-117) Aspartate Amino Transf (AST/SGOT) 9 U/L (15-37) Alanine Aminotransferase (ALT/SGPT) 27 U/L (10-53) Total Bilirubin 0.3 MG/DL (0.2-1.0) Sodium Level 133 MEQ/L (136-145) 133 MEQ/L (136-145) Potassium Level 5.5 MEQ/L (3.5-5.1) 5.3 MEQ/L (3.5-5.1) Chloride Level 97 MEQ/L (98-107) 95 MEQ/L (98-107) Carbon Dioxide Level 28.7 MEQ/L (21.0-32.0) 26.7 MEQ/L (21.0-32.0) Anion Gap 7 MEQ/L (5-15) 11 MEQ/L (5-15) Estimat Glomerular Filtration Rate 10 ML/MIN (>89) 10 ML/MIN (>89) Phosphorus Level 5.8 MG/DL (2.5-4.9) Magnesium Level 4.3 MG/DL (1.5-2.5) Test 08/19/17 15:04 08/20/17 04:10 Hemoglobin 9.0 GM/DL (11.6-15.3) 9.7 GM/DL (11.6-15.3) Hematocrit 27.7 % (35.0-46.0) 30.2 % (35.0-46.0) Result Diagram: 08/20/17 0410 08/19/17 0500 Microbiology Microbiology Date/Time Source Procedure Growth Status 07/20/17 14:00 Blood Peripheral Aerobic Blood Culture - Final NO GROWTH IN 5 DAYS Complete 07/20/17 14:00 Blood Peripheral Anaerobic Blood Culture - Final NO GROWTH IN 5 DAYS Complete 07/20/17 10:10 Sputum Endotracheal Gram Stain - Final Complete 07/20/17 10:10 Sputum Culture - Final Enterobacter Cloacae Complete 07/18/17 05:00 Urine Catheterized Urine Urine Culture - Final Kirsten Albicans Complete Imaging Last Impressions Chest X-Ray 08/19/17 0600 Signed Impressions: Service Date/Time: Saturday, August 19, 2017 03:23 - CONCLUSION: No significant interval change. Florentin Frank MD Abdomen X-Ray 08/15/17 0000 Signed Impressions: Service Date/Time: Tuesday, August 15, 2017 17:52 - CONCLUSION: No evidence of obstruction. Feeding tube coiled along the greater curvature of the stomach Jame Preciado MD Abdomen/Pelvis CT 07/24/17 0000 Signed Impressions: Service Date/Time: Monday, July 24, 2017 14:57 - CONCLUSION: Pleural effusion and atelectasis right greater than left. Bowel gas pattern is unremarkable. No evidence of an abscess. Some induration anterior abdominal wall with some possible early fluid collection inferiorly within the lower pannus. Jame Preciado MD Head CT 07/11/17 1827 Signed Impressions: Service Date/Time: Tuesday, July 11, 2017 21:23 - CONCLUSION: No acute intracranial abnormality Jaden Clark MD Procedures 07/11/2017: Intubation 07/11/2017: OGT placement 07/18/2017: Extubation 07/19/2017: Reintubation 07/25/2017: Tracheostomy . Assessment and Plan Disease Oriented Problem List: (1) Metabolic encephalopathy (2) Seizure disorder (3) Neuropathy (4) Acute respiratory failure with hypoxia and hypercarbia (5) HCAP (healthcare-associated pneumonia) (6) Hypertension (7) Acute kidney insufficiency (8) Protein calorie malnutrition (9) UTI (urinary tract infection) (10) Hypothyroidism (11) Respiratory distress (12) Pneumonia Symptom Scale: (1) Debility 0-10 Scale: Unable to quantify (2) Dyspnea 0-10 Scale: Unable to quantify (3) Encephalopathy 0-10 Scale: Unable to quantify (4) Pain 0-10 Scale: Unable to quantify Comment: Patient reporting intermittent abdominal and back pain, both rated 8 out of 10. Back pain is described as a constant ache that does not radiate. PRN medications are available, being sparingly use. Pertinent Non-Medical Issues Psychosocial: Patient is originally from [place]. She moved to [place] where she met her . Patient has been 2 times. She had 2 children with her first . Her daughter (Manuela) and son (Landon) lives in [place]. Patient has been to her current for approximately 37 years. She worked with Medicare processing claims. Spiritual: Non-practicing [employer] per spouse. Baptized during this admission. Legal: Per [place] statutes, in the absence of written advanced directives healthcare proxy decision-making falls to the patient's . Ethical issues impacting care: No known ethical issues impacting care at this time. . Important Contacts Reji Henson, : [phone] Manuela Kelly: [phone] . Prognosis Patient is a morbidly obese female with recurrent healthcare associated pneumonia, hypoxic respiratory failure and non-healing wounds status post tracheostomy placement. She has had multiple hospitalizations with subsequent LTAC/SNF placement since Dec, 2016. Overall prognosis is very poor; now with end stage renal disease. . Code Status: No Code Plan * NO CODE * Decision-making: Patient is currently unable to participate in establishment of medical treatment goals given her clinical condition, will not regain capacity. Per [place] statutes, in the absence of written advanced health care proxy decision making falls to her spouse. * Discussed patient's case with nursing and Dr. Wilson. * Plan for family meeting after son arrives on 08/21/17 (AM) and likely withdrawal of life support with hospice support. * Symptom management-pain: Patient shows no signs or symptoms of nonverbal pain on exam. Yesterday she was tearful and grimacing, Is crying and grimacing, indicating pain in her back and abdomen, possibly generalized pain. Unfortunately she is difficult to understand. PRN acetaminophen, oxycodone ( none since 08/14/17) are available. Sparing need, will monitor PRN requirements and make recommendations as indicated. * Symptom management-dyspnea: Patient with recurrent HCAP and hypoxic respiratory failure. Status post tracheostomy on 07/25/2017, currently tolerating CPAP. Unable to wean from vent. 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 Prior to Dec, 2016 the patient was able to ambulate short distances with a walker. Her states she was otherwise independent for all ADLs. Patient had ongoing hospitalizations and LTAC/SNF recent symptoms 2016. Patient remains dependent for all mobility, ongoing passive ROM exercises. Patient unable to participate secondary to lethargy. It is unlikely the patient will tolerate rehabilitation. * Symptom management-encephalopathy: CT head on 07/11/17 no acute intracranial abnormalities. She does not attempt to communicate and does not follow commands. * Palliative care will continue to follow this patient throughout her hospitalization to establish trust, assist with symptom management and clarification of medical treatment goals. . Attestation To help prompt me to consider important information that might be impacting today's encounter and assessment, information from prior notes written by myself or my colleagues may have been "brought forward" into today's note. My signature on this note, however, is an attestation that I personally performed the exam, history, and/or decision-making noted today, and, unless otherwise indicated, the interactions with patient, family, and staff as well as the review of records all occurred today. I also attest that the listed assessment and stated plan reflect my best clinical judgment today based on the combination of historical information, prior notes, and today's exam/ interactions. When time spent is documented, it refers only to time spent today by the signer, or if indicated, combined time spent today by collaborating physician/nurse practitioner. Delfina Aldana Aug 20, 2017 16:30
[2017-08-20 17:15] LABS: HEMATOCRIT 27.3 % (35.0-46.0); HEMOGLOBIN 8.7 GM/DL (11.6-15.3)
--- NOTE | 2017-08-20 19:31 | HHI.CCPN ---
Subjective Remarks/Hospital Course 07/11: 77-year-old morbidly obese female patient sent in from skilled nursing, due to increased lethargy for the last 2 days, hypoglycemia early in the day with sugars of 44, given glucagon, chest x-ray showing a pneumonia according to facility staff, EMS noted the patient was fairly disoriented, GCS 6, and started bag valve masking her because of respiratory distress and hypoxia with sats in the 87% range despite oxygenation. Patient was brought in bag-valve- mask in progress and was immediately intubated in the emergency department by ED attending. 07/12: Sedated, orally intubated on mechanical ventilation. 07/13 Patient is sedated with Fentanyl and intubated. Afebrile. 07/14 No events overnight, Sedated with Fentanyl and Versed. Afebrile. Failed CPAP trials yesterday. 07/15 No events overnight. Sedated and intubated. ABG on CPAP yesterday showed resp acidosis with PH 7.22 and CO2: 58 07/16 Patient remains sedated and intubated 07/17. No events overnight. Remains sedated and intubated 07/18 Patient remains intubated off sedation. Afebrile. 07/19 Patient s/p extubation yesterday on BIPAP overnight. Awake. ABG last night showed resp acidosis with PH: 7.24, pCO2: 66 07/20 Patient was reintubated yesterday for resp failure. Sedated and intubated. Afebrile. 07/21: new HCAP with GNRs in sputum. persistent respiratory failure. likely will require long-term ventilation and slow wean. will consult general surgery for re-do trach and gastric access. 07/22: no changes. no improvements. gen surgery planning PEG/Trach next week. 07/23: sputum growing enterobacter; now on Cefepime per ID. neuro exam still stable, but fails weaning trials quickly. 07/24: no changes. still failing cpap and weaning trials. CT abd/pelvis done at gen surg request without overt abscess at prior peg site. 07/25: s/p trach today. doing well. still failing cpap. approved for LTAC. surgical contra-indication to PEG placement with induration at old PEG site: will use DHT for enteral access and tube feeds. ID giving final recs for duration of therapy. stable for discharge to LTAC when bed available. 07/26 No events overnight. Patient was rejected by [facility] this morning per sample case porter. Afebrile. 07/27 Patient is sedated with Diprivan and intubated. Afebrile. 07/28 No events overnight. Off sedation. On ventilator via trach. 07/29 No events overnight. Tolerated CPAP for most f day yesterday. Afebrile. 07/30: Remains on mechanical ventilation via tracheostomy. Drowsy/ encephalopathic 07/31: Remains encephalopathic, on mechanical ventilation via tracheostomy. Received 1 unit PRBCs yesterday. No melena or rectal bleeding noted. 08/01: Remains encephalopathic, on mechanical ventilation via tracheostomy. Daily C Pap trials ongoing. Neurologic status remains poor. 08/02: no improvements, no changes. does not meet inpatient criteria, but funding problems prevent appropriate placement. overall prognosis very poor. unlikely that she will survive this medical illness. 08/03: continues without significant changes or improvements. 08/04: Remains encephalopathic, on mechanical ventilation via tracheostomy. Potassium elevated. Ordered Kayexalate. 08/05: Remains encephalopathic, on mechanical ventilation via tracheostomy. Potassium levels coming down. 08/06: Remains encephalopathic on mechanical ventilation via tracheostomy. Tolerating tube feeds. Daily C Pap trials 08/07: Patient awake this a.m., following commands answering yes and no questions. The patient remain on CPAP yesterday for an extended period of time. Plan to begin trach collar trials this a.m.. Patient noted 1 g/dl drop in hemoglobin repeat hemoglobin pending. 08/08: Tmax 99.6. Hemoglobin stabilized. The patient was initiated on T piece trials yesterday morning and sustained T piece trials for greater than 12 hours yesterday. Patient placed back on PRN antianxiety meds Xanax, states she is anxious. T piece trials reinitiated this a.m. Of patient noted to have elevated glucose levels persistent. Levemir 5 units subcutaneous twice a day hemoglobin A1c pending. Creatinine noted to be worsening nephrology is following. Tolerating tube feeds. 08/09: Patient tolerated T piece trials for approximately 14 hours, before returning to CPAP. The patient continues on CPAP 03/10.35. The patient is notably lethargic this a.m., receiving Dilaudid 1 dose last evening, will continue to monitor. Frequency narcotic has been decreased. Creatinine continues to worsen, discussed with nephrology Dr. Elder patient is not a candidate for hemodialysis. Palliative care reconsulted for evaluation and defining goals of care. 08/10: Afebrile .Patient continues on CPAP, responsive. Creatinine continues to worsen, it is felt that the patient will not do well on hemodialysis given her multiple comorbidities. Discussion with palliative care team has been made patient DNR status today following gnosticist. 08/11: No acute events overnight. Creatinine continues to rise. is considering possibly Hospice, in the near future. Groin area erythematous and nystatin powder added to medication regimen. Eid maintained to prevent further skin breakdown and measure adequate urinary output. 08/12: Afebrile. No improvement in renal function. Nodding yes and no to questions, continues on CPAP. 08/13: No change in status, noted lethargy. Patient continues on CPAP responsive to questions nodding head. Hemodynamically stable. Palliative care following regarding defining goals of care. 08/14: Patient continues on CPAP. Extensive discussion with Mr. Henson today, he has requested a second opinion regarding possible hemodialysis. Dr. Garcia has been consulted, awaiting any new recommendations. Creatinine continues to rise. 08/15: Delayed entry note-no change in status, she continues on CPAP unable to do T piece trials tidal volume/respiratory volumes very low. Patient continues to be lethargic. Dr. Garcia following. Hemodynamically stable. 08/16: Afebrile .Nephrology following, Dr. Garcia, patient placed on diuretics Diamox and furosemide. Patient continues to be edematous, patient needs to be lethargic but arousable. 08/17: Patient lethargic. Hgb dropping, she was transfused 2 units of packed red blood cells. Patient was noted to have vaginal bleeding during bathing process today. PIECE WORK CHECKER consulted. INR, fibrinogen level pending. No other active signs of bleeding. 08/18: Patient continues to be lethargic, creatinine continues to rise. Cessation of vaginal bleeding overnight. No intervention per PIECE WORK CHECKER at this time. Serial hemoglobin stable. Discussion with Mr. Henson family to arrive tomorrow for discussion of possible Hospice. Patient required to be placed back on mechanical ventilation today, patient nonresponsive. 08/19: no changes or improvements. BUN continues to rise. poor uop despite aggressive forced diuresis. again expressed to the her poor prognosis. she is unlikely to survive this hospitalization. 08/20: no changes. encephalopathy continues. family arriving from out of town. very poor prognosis. palliative involved. Objective Vital Signs Date Time Temp Pulse Resp B/P (MAP) Pulse Ox O2 Delivery O2 Flow Rate FiO2 08/20/17 18:00 66 08/20/17 16:01 100 35 08/20/17 16:00 98.1 15 131/63 (85) 08/18/17 20:35 Ventilator Intake and Output 08/20/17 08/20/17 08/21/17 08:00 16:00 00:00 Intake Total 886 ml 747 ml Output Total 75 ml 25 ml Balance 811 ml 722 ml Result Diagram: 08/20/17 1629 08/19/17 0500 Imaging Last Impressions Abdomen X-Ray 08/04/17 0000 Signed Impressions: Service Date/Time: Friday, August 04, 2017 22:47 - CONCLUSION: Benign-appearing abdomen. Dobbhoff feeding tube tip in the mid stomach. Charlie Norris MD Chest X-Ray 07/30/17 0000 Signed Impressions: Service Date/Time: Sunday, July 30, 2017 02:49 - CONCLUSION: Probable mild CHF. K. Jhonny Ziegler MD Abdomen/Pelvis CT 07/24/17 0000 Signed Impressions: Service Date/Time: Monday, July 24, 2017 14:57 - CONCLUSION: Pleural effusion and atelectasis right greater than left. Bowel gas pattern is unremarkable. No evidence of an abscess. Some induration anterior abdominal wall with some possible early fluid collection inferiorly within the lower pannus. Jame Preciado MD Head CT 07/11/17 1827 Signed Impressions: Service Date/Time: Tuesday, July 11, 2017 21:23 - CONCLUSION: No acute intracranial abnormality Jaden Clark MD Last Impressions Abdomen X-Ray 07/25/17 0000 Signed Impressions: Service Date/Time: Tuesday, July 25, 2017 17:34 - CONCLUSION: Dobbhoff catheter tip in the distal stomach. Jasen Delvalle MD Abdomen/Pelvis CT 07/24/17 0000 Signed Impressions: Service Date/Time: Monday, July 24, 2017 14:57 - CONCLUSION: Pleural effusion and atelectasis right greater than left. Bowel gas pattern is unremarkable. No evidence of an abscess. Some induration anterior abdominal wall with some possible early fluid collection inferiorly within the lower pannus. Jame Preciado MD Chest X-Ray 07/21/17 0600 Signed Impressions: Service Date/Time: Friday, July 21, 2017 03:13 - CONCLUSION: Nasogastric tube now in place with the tip below the [id number] of the radiograph. No significant interval change in bilateral pulmonary opacity. Differential diagnosis includes pulmonary edema and infection. Angelito Lovett MD Head CT 07/11/17 1827 Signed Impressions: Service Date/Time: Tuesday, July 11, 2017 21:23 - CONCLUSION: No acute intracranial abnormality Jaden Clark MD Objective Remarks GENERAL: Morbidly obese elderly female s/p trach, obtunded occasionally opens eyes spontaneously SKIN: Warm and dry. HEAD: Normocephalic. EYES: No scleral icterus. No injection or drainage. NECK: trachea midline. trach in place CARDIOVASCULAR: Regular rate and rhythm. RESPIRATORY: on mechanical ventilation via tracheostomy. unlabored. equal chest rise. GASTROINTESTINAL: Abdomen soft, obese non-tender, nondistended. MUSCULOSKELETAL: No cyanosis, or peripheral edema 2+. Neuro: Lethargic , on mechanical ventilation, unable to perform CPAP. RASS -4. A/P Assessment and Plan Assessment: 77yF with morbid obesity and recurrent healthcare associated pneumonia and hypoxic respiratory failure. s/p trach 07/25. Worsening renal failure , due to her complex medical condition , she will not do well on hemodialysis. very poor prognosis. unlikely to survive. appreciate palliative care involvement. Plan Neuro: metabolic encephalopathy Seizure disorder Neuropathy Anxiety disorder Off sedation. Monitor neuro status. On Keppra 500mg Q12 oxycodone 5mg po q4h prn for pain Patient obtunded secondary to uremia Pulm: Chronic hypoxic and hypercarbic Respiratory failure - persistent and now chronic. Recurrent healthcare associated pneumonia- resolved. Reintubated 07/19 Continue with vent support keep sat >92% Bronchodilators, ICU vent bundle. SBT daily as lisa s/p trach 07/[address] Srinivas Barlowm toilet, [facility]. Continue CPAP trials and attempt trach collar trials Trach collar trials initiated 08/07/17, unable to continue secondary to patient's lethargy 08/18 CPAP trials discontinued patient nonresponsive requiring mechanical ventilation CV: History of hypertension Monitor HR and BP keep MAP>65mmHg Amiodarone 200mg BID 2d echo 07/20: normal biventricular function, EF 60%, RVSP 47 mmHg. : Acute renal failure - worsening, persistent. Vaginal bleeding-resolved Monitor renal function, electrolytes replacement as needed. Nephrology consulted in view of rising BUN creatinine. Per nephrology patient will not do well on hemodialysis 09/07 her complex medical condition 08/14 second opinion from nephrology requested- Dr Garcia, again confirmed poor candidate for hemodialysis and would not do well given complex medical condition. 08/17 PIECE WORK CHECKER consulted-no intervention at this time regarding vaginal bleeding. Resolution of vaginal bleeding GI: Morbid Obesity Acute protein calorie malnutrition- severe On tube feeds- Nepro with goal rate 65ml/hr, On roly Colace, Lactulose for bowel regimen. d/c reglan. ICU electrolyte protocol and discontinued ID: Recurrent HCAP pneumonia- resolved. Urinary tract infection- resolved. off abx. monitor clinically.. Urine cx: 07/11: Kleb ESBL, Citrobacter. Repeat urine cx 07/18 - Kirsten Albicans sputum cx: Enterobacter ID following. Continue Nystatin powder to groin areas Heme: Anemia secondary to chronic disease Acute blood loss/vaginal bleeding-resolved Monitor CBC, on Ferrous sulfate and Folic acid Hep PLT ab -negative 1 unit PRBCs ordered on 07/30 for hemoglobin 7.2, no evidence of melena or rectal bleeding. hgb stable. Endo: Hypothyroidism Hyperglycemia of Critical illness SSI medium scale for glycemic control Levothyroxine 25 mcgs/d hemoglobin A1c- 5.3 08/08 Levemir increased 10 units SQ BID GI prophylaxis- on Pepcid DVT prophylaxis- Heparin SQ Dispo: Awaiting placement. Patient was rejected by [facility] for not enough medicare days left. will look into vent-capable SNF facilities. does not meet inpatient criteria. consulted palliative care to assist with deciding goals of therapy as [facility] prognosis appears poor. Patient renal function continues to worsen, patient will not do well on hemodialysis. Palliative Care has been consulted and patient was made CODE STATUS DNR on08/11 discussed with at bedside. family arriving this week. will need to seriously consider transitioning to comfort measures. Rafael Wilson MD Aug 20, 2017 19:31
[2017-08-21] VITALS (10 sets, daily range): BP systolic 94–106; BP diastolic 48–53; PULSE 58–63; TEMP 97.6–99; O2SAT 98–99
[2017-08-21] MEDS: FUROSEMIDE 100 MG/10 ML VIAL IV PUSH SCH ×2 (00:38→07:54)
[2017-08-21] MEDS: INSULIN NovoLIN REGULAR SUPPLEMENTAL SCALE SQ SCH ×2 (00:39→04:51)
[2017-08-21] MEDS: CHLORHEXIDINE GLUCONATE 2 % 1 PACK (2 CLOTHS) TOP SCH (04:00)
[2017-08-21] MEDS: LEVOTHYROXINE SODIUM 25 MCG TAB PO SCH (04:50)
[2017-08-21] MEDS: HEPARIN SODIUM - SQ 10,000 UNITS/ML VIAL SQ SCH (04:50)
[2017-08-21] MEDS: oxyCODONE HCL ORAL CONC 5 MG/0.25 ML SYRINGE PO PRN (05:33)
[2017-08-21] MEDS: ZINC SULFATE 220 MG CAP PO SCH (07:52)
[2017-08-21] MEDS: GABAPENTIN 300 MG CAP PO SCH (07:52)
[2017-08-21] MEDS: FAMOTIDINE 20 MG TAB NG SCH (07:53)
[2017-08-21] MEDS: levETIRAcetam 500 MG/5 ML UDC NG SCH (07:53)
[2017-08-21] MEDS: AMIODARONE 200 MG TAB PO SCH (07:53)
[2017-08-21] MEDS: ASCORBIC ACID 500 MG TAB PO SCH (07:53)
[2017-08-21] MEDS: FOLIC ACID 1 MG TAB PO SCH (07:53)
[2017-08-21] MEDS: LACTULOSE SYRUP 20 GM/30 ML CUP PO SCH (07:54)
[2017-08-21] MEDS: FERROUS SULFATE 300 MG /5ML UDC PO SCH (07:54)
[2017-08-21] MEDS: INSULIN DETEMIR 100 UNITS/ML VIAL SQ SCH (07:54)
[2017-08-21] MEDS: NYSTATIN 100,000 U/GM PWD 15 GM BTL TOPICAL SCH (07:54)
[2017-08-21] MEDS: MULTIVITAMIN TAB PO SCH (07:54)
[2017-08-21] MEDS: ARTIFICIAL TEARS OPTH SOLN 15 ML BTL EACH EYE SCH ×2 (07:55→13:00)
[2017-08-21] MEDS: SODIUM CHLORIDE 0.9% FLUSH 10 ML FLUSH IV FLUSH SCH (07:55)
[2017-08-21] MEDS: DOCUSATE SODIUM 50 MG/SENNA 8.6 MG TAB PO SCH (07:55)
[2017-08-21] MEDS: COLLAGENASE OINT 30 GM TUBE TOPICAL SCH (07:56)
--- NOTE | 2017-08-21 10:32 | HHI.CCPN ---
Subjective Remarks/Hospital Course 07/11: 77-year-old morbidly obese female patient [facility] in [facility], due to increased lethargy for the last 2 days, hypoglycemia early in the day with sugars of 44, given glucagon, chest x-ray showing a pneumonia according to facility staff, EMS noted the patient was fairly disoriented, GCS 6, and started bag valve masking her because of respiratory distress and hypoxia with sats in the 87% range despite oxygenation. Patient was brought in bag-valve- mask in progress and was immediately intubated in the emergency department by ED attending. 07/12: Sedated, orally intubated on mechanical ventilation. 07/13 Patient is sedated with Fentanyl and intubated. Afebrile. 07/14 No events overnight, Sedated with Fentanyl and Versed. Afebrile. Failed CPAP trials yesterday. 07/15 No events overnight. Sedated and intubated. ABG on CPAP yesterday showed resp acidosis with PH 7.22 and CO2: 58 07/16 Patient remains sedated and intubated 07/17. No events overnight. Remains sedated and intubated 07/18 Patient remains intubated off sedation. Afebrile. 07/19 Patient s/p extubation yesterday on BIPAP overnight. Awake. ABG last night showed resp acidosis with PH: 7.24, pCO2: 66 07/20 Patient was reintubated yesterday for resp failure. Sedated and intubated. Afebrile. 07/21: new HCAP with GNRs in sputum. persistent respiratory failure. likely will require long-term ventilation and slow wean. will consult general surgery for re-do trach and gastric access. 07/22: no changes. no improvements. gen surgery planning PEG/Trach next week. 07/23: sputum growing enterobacter; now on Cefepime per ID. neuro exam still stable, but fails weaning trials quickly. 07/24: no changes. still failing cpap and weaning trials. CT abd/pelvis done at gen surg request without overt abscess at prior peg site. 07/25: s/p trach today. doing well. still failing cpap. approved for LTAC. surgical contra-indication to PEG placement with induration at old PEG site: will use DHT for enteral access and tube feeds. ID giving final recs for duration of therapy. stable for discharge to LTAC when bed available. 07/26 No events overnight. Patient was rejected by [facility] this morning per child support case officer. Afebrile. 07/27 Patient is sedated with Diprivan and intubated. Afebrile. 07/28 No events overnight. Off sedation. On ventilator via trach. 07/29 No events overnight. Tolerated CPAP for most f day yesterday. Afebrile. 07/30: Remains on mechanical ventilation via tracheostomy. Drowsy/ encephalopathic 07/31: Remains encephalopathic, on mechanical ventilation via tracheostomy. Received 1 unit PRBCs yesterday. No melena or rectal bleeding noted. 08/01: Remains encephalopathic, on mechanical ventilation via tracheostomy. Daily C Pap trials ongoing. Neurologic status remains poor. 08/02: no improvements, no changes. does not meet inpatient criteria, but funding problems prevent appropriate placement. overall prognosis very poor. unlikely that she will survive this medical illness. 08/03: continues without significant changes or improvements. 08/04: Remains encephalopathic, on mechanical ventilation via tracheostomy. Potassium elevated. Ordered Kayexalate. 08/05: Remains encephalopathic, on mechanical ventilation via tracheostomy. Potassium levels coming down. 08/06: Remains encephalopathic on mechanical ventilation via tracheostomy. Tolerating tube feeds. Daily C Pap trials 08/07: Patient awake this a.m., following commands answering yes and no questions. The patient remain on CPAP yesterday for an extended period of time. Plan to begin trach collar trials this a.m.. Patient noted 1 g/dl drop in hemoglobin repeat hemoglobin pending. 08/08: Tmax 99.6. Hemoglobin stabilized. The patient was initiated on T piece trials yesterday morning and sustained T piece trials for greater than 12 hours yesterday. Patient placed back on PRN antianxiety meds Xanax, states she is anxious. T piece trials reinitiated this a.m. Of patient noted to have elevated glucose levels persistent. Levemir 5 units subcutaneous twice a day hemoglobin A1c pending. Creatinine noted to be worsening nephrology is following. Tolerating tube feeds. 08/09: Patient tolerated T piece trials for approximately 14 hours, before returning to CPAP. The patient continues on CPAP 03/10.35. The patient is notably lethargic this a.m., receiving Dilaudid 1 dose last evening, will continue to monitor. Frequency narcotic has been decreased. Creatinine continues to worsen, discussed with nephrology Dr. Elder patient is not a candidate for hemodialysis. Palliative care reconsulted for evaluation and defining goals of care. 08/10: Afebrile .Patient continues on CPAP, responsive. Creatinine continues to worsen, it is felt that the patient will not do well on hemodialysis given her multiple comorbidities. Discussion with palliative care team has been made patient DNR status today following adventist. 08/11: No acute events overnight. Creatinine continues to rise. is considering possibly Hospice, in the near future. Groin area erythematous and nystatin powder added to medication regimen. Eid maintained to prevent further skin breakdown and measure adequate urinary output. 08/12: Afebrile. No improvement in renal function. Nodding yes and no to questions, continues on CPAP. 08/13: No change in status, noted lethargy. Patient continues on CPAP responsive to questions nodding head. Hemodynamically stable. Palliative care following regarding defining goals of care. 08/14: Patient continues on CPAP. Extensive discussion with Mr. Henson today, he has requested a second opinion regarding possible hemodialysis. Dr. Garcia has been consulted, awaiting any new recommendations. Creatinine continues to rise. 08/15: Delayed entry note-no change in status, she continues on CPAP unable to do T piece trials tidal volume/respiratory volumes very low. Patient continues to be lethargic. Dr. Garcia following. Hemodynamically stable. 08/16: Afebrile .Nephrology following, Dr. Garcia, patient placed on diuretics Diamox and furosemide. Patient continues to be edematous, patient needs to be lethargic but arousable. 08/17: Patient lethargic. Hgb dropping, she was transfused 2 units of packed red blood cells. Patient was noted to have vaginal bleeding during bathing process today. FINANCIAL ANALYST consulted. INR, fibrinogen level pending. No other active signs of bleeding. 08/18: Patient continues to be lethargic, creatinine continues to rise. Cessation of vaginal bleeding overnight. No intervention per FINANCIAL ANALYST at this time. Serial hemoglobin stable. Discussion with Mr. Henson family to arrive tomorrow for discussion of possible Hospice. Patient required to be placed back on mechanical ventilation today, patient nonresponsive. 08/19: no changes or improvements. BUN continues to rise. poor uop despite aggressive forced diuresis. again expressed to the her poor prognosis. she is unlikely to survive this hospitalization. 08/20: no changes. encephalopathy continues. family arriving from out of town. very poor prognosis. palliative involved. 08/21 Patient is on ventilator via trach. On CPAP with PS 15, PEEP:5, FIO2 35% overnight. Afebrile. Tolerating tube feeds. Objective Vital Signs Date Time Temp Pulse Resp B/P (MAP) Pulse Ox O2 Delivery O2 Flow Rate FiO2 08/21/17 08:25 99 35 08/21/17 06:00 61 08/21/17 04:00 97.6 99/48 (65) 08/20/17 20:11 Ventilator 08/20/17 16:00 15 Intake and Output 08/21/17 08/21/17 08/21/17 07:59 15:59 23:59 Intake Total 650 ml Output Total 76 ml Balance 574 ml Result Diagram: 08/20/17 1629 08/19/17 0500 Other Results Laboratory Tests Test 08/20/17 16:29 Hemoglobin 8.7 GM/DL Hematocrit 27.3 % Imaging Last Impressions Chest X-Ray 08/19/17 0600 Signed Impressions: Service Date/Time: Saturday, August 19, 2017 03:23 - CONCLUSION: No significant interval change. Florentin Frank MD Abdomen X-Ray 08/15/17 0000 Signed Impressions: Service Date/Time: Tuesday, August 15, 2017 17:52 - CONCLUSION: No evidence of obstruction. Feeding tube coiled along the greater curvature of the stomach Jame Preciado MD Abdomen/Pelvis CT 07/24/17 0000 Signed Impressions: Service Date/Time: Monday, July 24, 2017 14:57 - CONCLUSION: Pleural effusion and atelectasis right greater than left. Bowel gas pattern is unremarkable. No evidence of an abscess. Some induration anterior abdominal wall with some possible early fluid collection inferiorly within the lower pannus. Jame Preciado MD Head CT 07/11/17 1827 Signed Impressions: Service Date/Time: Tuesday, July 11, 2017 21:23 - CONCLUSION: No acute intracranial abnormality Jaden Clark MD Objective Remarks GENERAL: Morbidly obese elderly female s/p trach, obtunded occasionally opens eyes spontaneously SKIN: Warm and dry. HEAD: Normocephalic. EYES: No scleral icterus. No injection or drainage. NECK: trachea midline. trach in place CARDIOVASCULAR: Regular rate and rhythm. RESPIRATORY: on mechanical ventilation via tracheostomy. unlabored. equal chest rise. GASTROINTESTINAL: Abdomen soft, obese non-tender, nondistended. MUSCULOSKELETAL: No cyanosis, or peripheral edema 2+. Neuro: Lethargic , on mechanical ventilation, unable to perform CPAP. RASS -4. A/P Assessment and Plan Assessment: 77yF with morbid obesity and recurrent healthcare associated pneumonia and hypoxic respiratory failure. s/p trach 07/25. Worsening renal failure , due to her complex medical condition , she will not do well on hemodialysis. very poor prognosis. unlikely to survive. appreciate palliative care involvement. Plan Neuro: metabolic encephalopathy Seizure disorder Neuropathy Anxiety disorder Off sedation. Monitor neuro status. On Keppra 500mg Q12 oxycodone 5mg po q4h prn for pain Pulm: Chronic hypoxic and hypercarbic Respiratory failure - persistent and now chronic. Recurrent healthcare associated pneumonia- resolved. Reintubated 07/19 Continue with vent support keep sat >92% Bronchodilators, ICU vent bundle. SBT daily as lisa s/p trach 07/[address] Espino Pul toilet, [facility]. Continue CPAP trials and attempt trach collar trials CV: History of hypertension Monitor HR and BP keep MAP>65mmHg Amiodarone 200mg BID 2d echo 07/20: normal biventricular function, EF 60%, RVSP 47 mmHg. : Acute renal failure - worsening, persistent. Vaginal bleeding-resolved Monitor renal function, electrolytes replacement as needed. Nephrology consulted in view of rising BUN creatinine. Per nephrology patient will not do well on hemodialysis 2/2 her complex medical condition 08/14 second opinion from nephrology requested- Dr Garcia, again confirmed poor candidate for hemodialysis and would not do well given complex medical condition. 08/17 FINANCIAL ANALYST consulted-no intervention at this time regarding vaginal bleeding. Resolution of vaginal bleeding Monitor renal function, I/O's, avoid nephrotoxins Cr: 4.51 on 08/19. Check BMP STAT GI: Morbid Obesity Acute protein calorie malnutrition- severe On tube feeds- Nepro with goal rate 65ml/hr, On roly Colace, Lactulose for bowel regimen. ID: Recurrent HCAP pneumonia- resolved. Urinary tract infection- resolved. off abx. monitor clinically.. Urine cx: 07/11: Kleb ESBL, Citrobacter. Repeat urine cx 07/18 - Kirsten Albicans sputum cx: Enterobacter ID following. Continue Nystatin powder to groin areas Heme: Anemia secondary to chronic disease Acute blood loss/vaginal bleeding-resolved Monitor CBC, on Ferrous sulfate and Folic acid Hep PLT ab -negative Endo: Hypothyroidism Hyperglycemia of Critical illness SSI medium scale for glycemic control Levothyroxine 25 mcgs/d hemoglobin A1c- 5.3 Levemir 10 units SQ BID GI prophylaxis- on Pepcid DVT prophylaxis- Heparin SQ Dispo: Awaiting placement. Patient was rejected by [facility] for not enough medicare days left. will look into vent-capable SNF facilities. does not meet inpatient criteria. Palliative Care is following CODE STATUS DNR on08/11 Check labs today Level 3 Brittani Mercado MD Aug 21, 2017 10:32
[2017-08-21] MEDS ORDERED: LORazepam 2 MG/ML VIAL IV PUSH ONE ×2 (12:30→12:45)
[2017-08-21] MEDS ORDERED: HYOSCYAMINE 0.5 MG/ML AMP IV PUSH ONE (12:30)
[2017-08-21] MEDS ORDERED: HYDROmorphone HCL PF 2 MG/ML VIAL IV PUSH ONE ×2 (12:30→12:45)
--- NOTE | 2017-08-21 12:43 | HHI.HCPN ---
Reason for visit a. To assist with evaluation and management of symptoms including: Debility , dyspnea, encephalopathy, pain b. To assist medical decision maker(s) with: better understanding of current medical conditions; weighing benefits/burdens of medical treatment options; making medical treatment decisions. . Subjective/Interval History Patient seen and examined in ICU. Spouse (Reji) and son at bedside. Patient does not respond to voice or exam. Family reports decreased response in the past 24 hours. reports she appeared painful and improved with medication. Patient shows no signs or symptoms of nonverbal pain on exam. Nursing pain scales "0". On CPAP. Hypotensive. . Family/friend interactions Spoke with , son, 2 granddaughters at bedside. Daughter, Manuela on phone via [employer]. Anticipatory guidance provided regarding withdrawal of life support and prognosis. Hospice nurse, Wilber met with spouse to review hospice services, plan to [place] life prolonging measures and anticipatory guidance for withdrawal of life support. We discussed plan for transfer to hospice care center in [facility] if she survives overnight, he agrees. Declines ledger clerk at this time. . Advance Directives Advance Directive Specifics Documented care wishes: No known document wishes have been completed. . Significant change in goals: NO CODE. Hospice consulted, plan for withdrawal of life support when family ready today. . Objective Vital Signs Date Time Temp Pulse Resp B/P (MAP) Pulse Ox O2 Delivery O2 Flow Rate FiO2 08/21/17 11:44 98 35 08/21/17 10:00 59 08/21/17 08:25 99 35 08/21/17 08:00 59 08/21/17 08:00 35 08/21/17 08:00 97.8 59 94/49 (64) 99 08/21/17 06:00 61 08/21/17 04:30 99 35 08/21/17 04:00 58 08/21/17 04:00 97.6 58 99/48 (65) 99 08/21/17 04:00 35 08/21/17 02:00 58 08/21/17 00:00 63 08/21/17 00:00 35 08/21/17 00:00 99.0 63 106/53 (70) 99 08/20/17 23:51 99 35 08/20/17 22:00 57 08/20/17 20:11 99 Ventilator 08/20/17 20:06 99 35 08/20/17 20:00 57 08/20/17 20:00 98.8 57 107/66 (80) 100 08/20/17 20:00 35 08/20/17 18:00 66 08/20/17 16:01 100 35 08/20/17 16:00 98.1 63 15 131/63 (85) 100 08/20/17 16:00 35 08/20/17 16:00 63 08/20/17 14:00 61 08/20/17 12:30 100 35 Intake & Output 08/21/17 08/21/17 07:00 19:00 Intake Total 650 ml Output Total 76 ml Balance 574 ml Tube Feeding 650 ml Output Urine Total 75 ml Stool Total 1 ml # Bowel Movements 1 Physical Exam CONSTITUTIONAL/GENERAL: This is a morbidly obese, on CPAP to trach. TUBES/LINES/DRAINS: Tracheostomy, Dobbhoff, catheter, PIV, wrist restraints, podus boots. SKIN: Generalized pallor. Ecchymosis on bilateral upper extremities. Wounds on upper extremities bilaterally NECK: Tracheostomy to CPAP CARDIOVASCULAR: Distant heart sounds. Regular rate and rhythm without murmurs, gallops, or rubs. Upper extremities edematous bilaterally RESPIRATORY/CHEST: Breath sounds diminished throughout GASTROINTESTINAL: Protuberant abdomen with non-healing ulcer area from prior PEG site. GENITOURINARY: Without palpable bladder distension. Catheter in place, minimal UOP. MUSCULOSKELETAL: Extremities with generalized edema. NEUROLOGICAL: Does not open eyes to voice or exam. PSYCHIATRIC: Unable to assess due to patient's clinical condition. . Diagnostic Tests Laboratory Laboratory Tests Test 08/18/17 17:12 08/19/17 05:00 08/19/17 15:04 08/20/17 04:10 Hemoglobin 8.0 GM/DL (11.6-15.3) 8.6 GM/DL (11.6-15.3) 9.0 GM/DL (11.6-15.3) 9.7 GM/DL (11.6-15.3) Hematocrit 24.4 % (35.0-46.0) 26.2 % (35.0-46.0) 27.7 % (35.0-46.0) 30.2 % (35.0-46.0) White Blood Count 6.5 TH/MM3 (4.0-11.0) Red Blood Count 2.78 MIL/MM3 (4.00-5.30) Mean Corpuscular Volume 93.9 FL (80.0-100.0) Mean Corpuscular Hemoglobin 30.7 PG (27.0-34.0) Mean Corpuscular Hemoglobin Concent 32.7 % (32.0-36.0) Red Cell Distribution Width 19.8 % (11.6-17.2) Platelet Count 115 TH/MM3 (150-450) Mean Platelet Volume 9.8 FL (7.0-11.0) Blood Urea Nitrogen 150 MG/DL (7-18) Creatinine 4.51 MG/DL (0.50-1.00) Random Glucose 182 MG/DL (74-106) Calcium Level 8.6 MG/DL (8.5-10.1) Phosphorus Level 5.8 MG/DL (2.5-4.9) Magnesium Level 4.3 MG/DL (1.5-2.5) Sodium Level 133 MEQ/L (136-145) Potassium Level 5.3 MEQ/L (3.5-5.1) Chloride Level 95 MEQ/L (98-107) Carbon Dioxide Level 26.7 MEQ/L (21.0-32.0) Anion Gap 11 MEQ/L (5-15) Estimat Glomerular Filtration Rate 10 ML/MIN (>89) Test 08/20/17 16:29 Hemoglobin 8.7 GM/DL (11.6-15.3) Hematocrit 27.3 % (35.0-46.0) Result Diagram: 08/20/17 1629 08/19/17 0500 Microbiology Microbiology Date/Time Source Procedure Growth Status 07/20/17 14:00 Blood Peripheral Aerobic Blood Culture - Final NO GROWTH IN 5 DAYS Complete 07/20/17 14:00 Blood Peripheral Anaerobic Blood Culture - Final NO GROWTH IN 5 DAYS Complete 07/20/17 10:10 Sputum Endotracheal Gram Stain - Final Complete 07/20/17 10:10 Sputum Culture - Final Enterobacter Cloacae Complete 07/18/17 05:00 Urine Catheterized Urine Urine Culture - Final Kirsten Albicans Complete . Imaging Last Impressions Chest X-Ray 08/19/17 0600 Signed Impressions: Service Date/Time: Saturday, August 19, 2017 03:23 - CONCLUSION: No significant interval change. Florentin J. Siragusa, MD Abdomen X-Ray 08/15/17 0000 Signed Impressions: Service Date/Time: Tuesday, August 15, 2017 17:52 - CONCLUSION: No evidence of obstruction. Feeding tube coiled along the greater curvature of the stomach Jmae Preciado MD Abdomen/Pelvis CT 07/24/17 0000 Signed Impressions: Service Date/Time: Monday, July 24, 2017 14:57 - CONCLUSION: Pleural effusion and atelectasis right greater than left. Bowel gas pattern is unremarkable. No evidence of an abscess. Some induration anterior abdominal wall with some possible early fluid collection inferiorly within the lower pannus. Jame Preciado MD Head CT 07/11/17 1827 Signed Impressions: Service Date/Time: Tuesday, July 11, 2017 21:23 - CONCLUSION: No acute intracranial abnormality Jaden Clark MD . Procedures 07/11/2017: Intubation 07/11/2017: OGT placement 07/18/2017: Extubation 07/19/2017: Reintubation 07/25/2017: Tracheostomy . Assessment and Plan Disease Oriented Problem List: (1) Acute renal failure (2) Acute respiratory failure with hypoxia and hypercarbia (3) COPD (chronic obstructive pulmonary disease) (4) Metabolic encephalopathy (5) Seizure disorder (6) Neuropathy (7) HCAP (healthcare-associated pneumonia) (8) Hypertension (9) Protein calorie malnutrition (10) UTI (urinary tract infection) (11) Hypothyroidism Symptom Scale: (1) Debility 0-10 Scale: Unable to quantify (2) Dyspnea 0-10 Scale: Unable to quantify (3) Encephalopathy 0-10 Scale: Unable to quantify (4) Pain 0-10 Scale: Unable to quantify Comment: Comfort med orders written Pertinent Non-Medical Issues Psychosocial: Patient is originally from [place]. She moved to [place] where she met her . Patient has been 2 times. She had 2 children with her first . Her daughter (Manuela) and son (Landon) lives in [place]. Patient has been to her current for approximately 37 years. She worked with Medicare processing claims. Spiritual: Non-practicing [employer] per spouse. Baptized during this admission. Legal: Per [place] statutes, in the absence of written advanced directives healthcare proxy decision-making falls to the patient's . Ethical issues impacting care: No known ethical issues impacting care at this time. . Important Contacts Reji Henson, : [phone] Manuela Kelly: [phone] . Prognosis Patient is a morbidly obese female with recurrent healthcare associated pneumonia, hypoxic respiratory failure and non-healing wounds status post tracheostomy placement. She has had multiple hospitalizations with subsequent LTAC/SNF placement since Dec, 2016. Overall prognosis is very poor; now with end stage renal disease. . Code Status: No Code Plan * NO CODE * Decision-making: Patient is currently unable to participate in establishment of medical treatment goals given her clinical condition, will not regain capacity. Per [place] statutes, in the absence of written advanced health care proxy decision making falls to her spouse. * Discussed patient's case with nursing, hospice nurse and Dr. Barraza and Dr. Martinez. * Hospice consulted. Plan for withdrawal of life support with hospice support. Will transfer to hospice care center in AM if survives overnight. * Symptom management-pain/ dyspnea: Orders written for comfort measures with withdrawal of life support. * Symptom management-debility: transition to comfort measures, DC PT/OT. * Symptom management-encephalopathy: She does not attempt to communicate and does not follow commands. Worsening renal function. * Palliative care will continue to follow this patient throughout her hospitalization to establish trust, assist with symptom management and clarification of medical treatment goals. . Attestation To help prompt me to consider important information that might be impacting today's encounter and assessment, information from prior notes written by myself or my colleagues may have been "brought forward" into today's note. My signature on this note, however, is an attestation that I personally performed the exam, history, and/or decision-making noted today, and, unless otherwise indicated, the interactions with patient, family, and staff as well as the review of records all occurred today. I also attest that the listed assessment and stated plan reflect my best clinical judgment today based on the combination of historical information, prior notes, and today's exam/ interactions. When time spent is documented, it refers only to time spent today by the signer, or if indicated, combined time spent today by collaborating physician/nurse practitioner. Delfina Aldana Aug 21, 2017 12:43
[2017-08-21] MEDS ORDERED: FUROSEMIDE 20 MG/2 ML VIAL IV PUSH PRN (13:00)
[2017-08-21] MEDS ORDERED: LORazepam 2 MG/ML VIAL IV PUSH PRN ×3 (13:00)
[2017-08-21] MEDS ORDERED: ACETAMINOPHEN 650 MG SUPP RECTAL PRN (13:00)
[2017-08-21] MEDS ORDERED: HYOSCYAMINE 0.5 MG/ML AMP IV PUSH PRN (13:00)
[2017-08-21] MEDS ORDERED: HYDROmorphone HCL PF 2 MG/ML VIAL IV PUSH PRN ×2 (13:00)
[2017-08-21] MEDS ORDERED: LORazepam 2 MG/ML VIAL IV PUSH SCH (16:00)
== END 2017-08-21 13:47 | disposition expired | DRG 4 ==
LOC: NEPE 18:23 → NEDA 18:59 → HIME 21:40
PROVIDERS: ADMIT Family Medicine Hospice and Palliative Medicine; ATTEND Family Medicine Hospice and Palliative Medicine
PROC: 5A1955Z Respiratory Ventilation, Greater than 96 Consecutive Hours (ICD-10-PCS; 2017-07-11)
PROC: 0BH17EZ Insertion of Endotracheal Airway into Trachea, Via Natural or Artificial Opening (ICD-10-PCS; 2017-07-11)
PROC: 0T9B70Z Drainage of Bladder with Drainage Device, Via Natural or Artificial Opening (ICD-10-PCS; 2017-07-11)
PROC: 5A1955Z Respiratory Ventilation, Greater than 96 Consecutive Hours (ICD-10-PCS; 2017-07-19)
PROC: 0BH17EZ Insertion of Endotracheal Airway into Trachea, Via Natural or Artificial Opening (ICD-10-PCS; 2017-07-19)
PROC: 0T9B70Z Drainage of Bladder with Drainage Device, Via Natural or Artificial Opening (ICD-10-PCS; 2017-07-19)
PROC: 30233N1 Transfusion of Nonautologous Red Blood Cells into Peripheral Vein, Percutaneous Approach (ICD-10-PCS; 2017-07-22)
PROC: 0BJ08ZZ Inspection of Tracheobronchial Tree, Via Natural or Artificial Opening Endoscopic (ICD-10-PCS; 2017-07-25)
PROC: 0B113F4 Bypass Trachea to Cutaneous with Tracheostomy Device, Percutaneous Approach (ICD-10-PCS; principal; 2017-07-25 10:28)
DX: A41.9 Sepsis, unspecified organism (principal); R65.21 Severe sepsis with septic shock; E43 Unspecified severe protein-calorie malnutrition; J15.6 Pneumonia due to other Gram-negative bacteria; J18.9 Pneumonia, unspecified organism; N17.9 Acute kidney failure, unspecified; G93.41 Metabolic encephalopathy; J96.21 Acute and chronic respiratory failure with hypoxia; I13.0 Hypertensive heart and chronic kidney disease with heart failure and stage 1 through stage 4 chronic kidney disease, or unspecified chronic kidney disease; I50.9 Heart failure, unspecified; J96.22 Acute and chronic respiratory failure with hypercapnia; Z99.11 Dependence on respirator [ventilator] status; E87.2 Acidosis; J44.0 Chronic obstructive pulmonary disease with (acute) lower respiratory infection; N39.0 Urinary tract infection, site not specified; E11.22 Type 2 diabetes mellitus with diabetic chronic kidney disease; E87.5 Hyperkalemia; G62.9 Polyneuropathy, unspecified; E66.01 Morbid (severe) obesity due to excess calories; G40.909 Epilepsy, unspecified, not intractable, without status epilepticus; N18.9 Chronic kidney disease, unspecified; Z79.4 Long term (current) use of insulin; F41.9 Anxiety disorder, unspecified; F32.9 Major depressive disorder, single episode, unspecified; Z87.440 Personal history of urinary (tract) infections; M19.90 Unspecified osteoarthritis, unspecified site; Z51.5 Encounter for palliative care; Z66 Do not resuscitate; Z53.29 Procedure and treatment not carried out because of patient's decision for other reasons; Y95 Nosocomial condition; Z74.01 Bed confinement status; I48.91 Unspecified atrial fibrillation; N95.2 Postmenopausal atrophic vaginitis; D63.8 Anemia in other chronic diseases classified elsewhere; K21.9 Gastro-esophageal reflux disease without esophagitis; E03.9 Hypothyroidism, unspecified; D70.9 Neutropenia, unspecified; R00.1 Bradycardia, unspecified
CPT/HCPCS: 31500; 36430; 36600; 70450; 71010; 71045; 74000; 74018; 74177; 76937; 80048; 80053; 80069; 80202; 81001; 82550; 82805; 82948; 83036; 83605; 83690; 83735; 83880; 84100; 84132; 84484; 85007; 85014; 85018; 85025; 85027; 85384; 85610; 85730; 86022; 86850; 86900; 86901; 86920; 87040; 87070; 87077; 87086; 87186; 87205; 87449; 87641; 93005; 93306; 94002; 94003; 94150; 94640; 94664; 94667; A7521; J0360; J0456; J0692; J0695; J0743; J1120; J1170; J1644; J1720; J1815; J1940; J1980; J2060; J2250; J2405; J2543; J3010; J3370; J3480; J7030; J7040; J7050; J7070; J7608; P9016; P9047; Q9963; Q9967